=== PATIENT | male | born 1935 | race Caucasian/White ===

== ENCOUNTER → 2017-09-17 14:39 | Outpatient (CLI) | payer MEDICARE, OTHER, SELFPAY ==
[2017-09-17 17:02] LABS: Absolute Lymphocyte Count 1.72 X10^3/ul (0.83-4.51); Absolute Neutrophil Count 6.8 X10^3/uL (2.0-7.7); Basophil# 0.04 X10^3/uL; Basophil% 0.4 % (0-1); Eosinophil# 0.71 X10^3/uL; Eosinophils% 7.1 % (0-5); Hemoglobin 13.8 g/dl (13.0-16.5); Lymphocyte # 1.72 X10^3/ul (4.0); Lymphocyte % 17.2 % (19-41); Mean Corp Hgb Conc 32.1 g/gl (32-36); Mean Corpuscular Hgb 26.2 pg (27.0-32.0); Mean Corpuscular Volume 81.7 fL (80-94); Mean Platelet Vol. 9.9 fl (6.2-12.0); Monocyte# 0.71 X10^3/uL; Monocyte% 7.1 % (0-10); Neutrophil # 6.78 X10^3/uL (2.7-7.7); Neutrophil % 67.8 % (47-70); Platelet Count 361 K/mm3 (150-450); RBC Distribution Width CV 19.6 % (11.6-14.6); RBC Distribution Width SD 58.7 fl (35.1-43.9); Red Blood Count 5.26 M/mm3 (4.6-6.2)
[2017-09-17 17:05] LABS: POSITIVE COUNT NO; POSITIVE DIFFERENTIAL NO; POSITIVE MORPHOLOGY NO
[2017-09-17 17:35] LABS: ALB/GLOB Ratio 0.8 RATIO (0.9-2.4); AST(SGOT) 21 U/L (15-37); Alanine Aminotransfer ALT/SGPT 28 U/L (16-61); Albumin, Serum 3.2 g/dL (3.2-5.0); Alkaline Phosphatase 122 U/L (45-117); Anion Gap 9 (5-15); BUN 22 mg/dL (7-18); BUN/Creat Ratio 17.5 RATIO (10-20); Calcium,Total 8.5 mg/dL (8.5-10.1); Chloride 106 mmol/L (98-107); Creatinine, Serum 1.26 mg/dL (0.70-1.30); EST Glomerular Filtration Rate 58 mL/min (>60); Est Glom Filt Rate - Afr Amer 71 mL/min (>60); Globulin 4.1 g/dL (2.2-4.2); Glucose 98 mg/dL (70-110); Potassium 4.5 mmol/L (3.5-5.1); Protein, Total 7.3 g/dL (6.4-8.2); Sodium Level 141 mmol/L (136-145); Thyroid Stim Hormone (TSH) 2.11 uIU/mL (0.358-3.74)
[2017-09-18 10:05] LABS: Vitamin D,25 Hydroxy 15.4 ng/mL (19.95-100.01)
== END ==
PROVIDERS: Family Provider Family Medicine Geriatric Medicine; PCP Family Medicine Geriatric Medicine; Visit Provider Family Medicine Geriatric Medicine
DX: E55.9 Vitamin D deficiency, unspecified (principal); I10 Essential (primary) hypertension
CPT/HCPCS: 36415; 80053; 82306; 84443; 85025

== ENCOUNTER 2017-09-18 16:41 | Emergency (ER) | payer MEDICARE, OTHER, SELFPAY ==
[2017-09-18 16:42] VITALS: BP 197/121; PULSE 118; RESP 16; TEMP 36; O2SAT 94; BMI 25.2
--- NOTE | 2017-09-18 17:04 | ED.DCSUM_ITS ---
- ER Visit Summary Date of Service: 09/18/17 Chief Complaint: Atraumatic left lower leg swelling and redness. History of Present Illness: The patient is a 82 M history of CAD with stent A. fib and anticoagulated on Coumadin. History of prior epidural hematoma with brain surgery. Patient states last 4 days he has had atraumatic left lower leg swelling without significant pain. No chest pain or shortness of breath. No history of DVT or PE. No recent travel surgery nor any hospitalization. He does have a history of eczema on his skin. States her left foot was red and now his calf is swollen. He denies any fever or chills. Patient states he feels fine. Physical Examination: Well-appearing elderly male. No acute distress. Vital signs are stable and afebrile. His blood pressure is elevated 197/121. His heart rate 118. Pulse ox 94% on room air no signs of hypoxia. He is in no distress. HEENT exam unremarkable. Neck nontender no JVD. Lungs clear to auscultation bilaterally. Heart A. fib RVR. Rate about 110. Abdomen soft nontender. He is moving all 4 extremities. Neurovascular intact. His left calf is significantly more swollen than the right. His left foot is neurovascularly intact. He does have eczema on both lower extremities. There is some redness on the left lower extremity. There is no significant pain. There is no cord. Above the knee is nontender and there is no swelling in the thigh. And there is no inguinal lymphadenopathy. There is no lymphangitic streaking. Left foot is neurovascularly intact. Neurologic exam is awake and alert without focal motor deficits. Test Results: EKG A. fib rate of 112. CBC shows white count 9. Normal H&H. No bands. BMP unremarkable. Normal gap. Creatinine 1.2. Patient is on Coumadin his INR is 2.6. Ultrasound of the left lower extremity shows no DVT I discussed with hazardous waste material technician. Emergency Department Course and Treatment: Patient has atraumatic swelling his left lower extremity which may be secondary to cellulitis of the skin versus a possible DVT. He will have a noninvasive study the left lower extremity and screening labs obtained. Treatment Plan: Patient will be treated for left lower extremity cellulitis. I discussed this with him. He did not want admitted. He knows return if worse. I did speak with his primary care physician Dr. Carlos who knows the patient is seen him recently and will ensure close follow-up. Patient replaced both on Keflex 4 times a day and Bactrim twice daily for the next 10 days each. He was instructed to return if feeling worse. He does not look septic or toxic I am comfortable with him being discharged home. Disposition: Discharge Impression: Acute atraumatic left lower leg swelling secondary to left lower extremity cellulitis. Anticoagulated on Coumadin with an INR of 2.6. Chronic A. fib This note was generated with [employer] dictation software. It may contain incorrect words, spelling, and punctuation that were not noted in review of the chart prior to signing ED Disposition - Plan for ED Patient: Chief Complaint: Cellulitis Referrals: Dariusz Gonzalez Chi, MD [Primary Care Provider] -
--- NOTE | 2017-09-18 17:21 | EKG12_ITS ---
Test Reason : CELLULITIS Blood Pressure : / mmHG Vent. Rate : 112 BPM Atrial Rate : 117 BPM P-R Int : 000 ms QRS Dur : 078 ms QT Int : 362 ms P-R-T Axes : 000 048 014 degrees QTc Int : 494 ms Atrial fibrillation Nonspecific ST abnormality Abnormal ECG Confirmed by MAXWELL LOCO MD ([id number]), industrial editor STEVE REHMAN ([id number] on 09/23/2017 4:10:08 PM Referred By: MAUREEN Confirmed By:MAXWELL LOCO MD
[2017-09-18 17:31] LABS: Absolute Lymphocyte Count 1.64 X10^3/ul (0.83-4.51); Absolute Neutrophil Count 6.2 X10^3/uL (2.0-7.7); Basophil# 0.07 X10^3/uL; Basophil% 0.7 % (0-1); Eosinophil# 0.81 X10^3/uL; Eosinophils% 8.3 % (0-5); Hematocrit 42.5 % (40-54); Hemoglobin 13.7 g/dl (13.0-16.5); Lymphocyte # 1.64 X10^3/ul (4.0); Lymphocyte % 16.9 % (19-41); Mean Corp Hgb Conc 32.2 g/gl (32-36); Mean Corpuscular Hgb 26.1 pg (27.0-32.0); Mean Platelet Vol. 9.7 fl (6.2-12.0); Monocyte# 0.89 X10^3/uL; Monocyte% 9.2 % (0-10); Neutrophil # 6.24 X10^3/uL (2.7-7.7); Neutrophil % 64.3 % (47-70); Platelet Count 343 K/mm3 (150-450); RBC Distribution Width CV 19.5 % (11.6-14.6); RBC Distribution Width SD 58.4 fl (35.1-43.9); Red Blood Count 5.25 M/mm3 (4.6-6.2); White Blood Count 9.7 K/mm3 (4.4-11.0)
--- NOTE | 2017-09-18 17:33 | US_ITS ---
STUDY: VENOUS DOPPLER ULTRASOUND - LEFT LOWER EXTREMITY REASON FOR EXAM: Male, 82 years old. Left lower extremity redness swelling TECHNIQUE: Ultrasound evaluation of the deep vein system to include pradhan-scale imaging and compression was performed. Pradhan-scale imaging and Doppler sonographic evaluation, including duplex spectral analysis and qualitative color flow sonography, was performed. COMPARISON: None. FINDINGS: Common Femoral Vein: Normal compression, spontaneity and augmentation. Normal color Doppler. Common Femoral Vein/Greater Saphenous Junction: Normal compression, spontaneity and augmentation. Normal color Doppler. Femoral Proximal: Normal compression, spontaneity and augmentation. Normal color Doppler. Femoral Middle: Normal compression, spontaneity and augmentation. Normal color Doppler. Femoral Distal: Normal compression, spontaneity and augmentation. Normal color Doppler. Popliteal Vein: Normal compression, spontaneity and augmentation. Normal color Doppler. Posterior Tibial Vein: Normal compression, spontaneity and augmentation. Normal color Doppler. Peroneal Vein: Normal compression, spontaneity and augmentation. Normal color Doppler. US/Venous Duplex Imag/Limited/Uni IMPRESSION: Normal venous Doppler ultrasound of the lower extremity. Electronically Signed: Benji Roth MD at 18:18 EST , Service support ,
--- NOTE | 2017-09-18 17:52 | NURSING ---
NO LW OR POA
[2017-09-18 17:57] LABS: POSITIVE COUNT NO; POSITIVE DIFFERENTIAL NO; POSITIVE MORPHOLOGY NO
[2017-09-18 17:58] LABS: International Normalized Ratio 2.6; Prothrombin Time (Protime)PT. 27.1 SECONDS (11.7-14.9)
[2017-09-18 18:15] LABS: Anion Gap 10 (5-15); BUN 25 mg/dL (7-18); Calcium,Total 8.3 mg/dL (8.5-10.1); Chloride 108 mmol/L (98-107); Creatinine, Serum 1.25 mg/dL (0.70-1.30); EST Glomerular Filtration Rate 59 mL/min (>60); Est Glom Filt Rate - Afr Amer 71 mL/min (>60); Estimated Creatinine Clearance 53.89 ml/min; Glucose 96 mg/dL (70-110); Potassium 4.4 mmol/L (3.5-5.1); Sodium Level 139 mmol/L (136-145)
--- NOTE | 2017-09-18 20:01 | ED.DEP ---
ED Disposition - Plan for ED Patient: Disposition: Home or Assisted Living Chief Complaint: Cellulitis Instructions: Discharge Instructions for Cellulitis Prescriptions: Cephalexin [Keflex] 500 mg PO Q6 10 Days cap Smz/Tmp Ds [Bactrim Ds] 1 tab PO BID #20 tab Referrals: Dariusz Gonzalez Chi, MD [Primary Care Provider] - As soon as possible Additional Instructions: Bactrim 1 pill twice a day for 10 days. Also Keflex 1 pill 4 times a day for 10 days. These are the 2 antibiotics to treat your leg infection. I spoke with Dr. Gonzalez and he will see you in the next several days to ensure your improving. Call his office to make an appointment. Return to ER if feeling worse or the leg looks a lot worse. If you develop fever or chills. You will need your Coumadin level rechecked in about 14 days because the antibiotics you are taking may affect it.
[2017-09-18] MEDS: Cephalexin 250 MG Capsule 500 MG PO (20:07)
[2017-09-18] MEDS: Smz/Tmp Ds Tablet 1 TABLET PO (20:07)
[2017-09-18 20:09] VITALS: BP 138/98; PULSE 97; RESP 17; O2SAT 98
--- NOTE | 2017-09-18 20:09 | ED.RN ---
THIS MAILING JOGGER WRITTEN AND VERBAL D/C INSTRUCTIONS AND HOMEGOING PRESCRIPTIONS TO PT. PT VERBALIZES UNDERSTANDING. PT GIVEN ORAL MEDICATIONS. IV D/C BY VLADIMIR MEDIC STUDENT. MINIMAL BLEEDING NOTED. PT AMBULATORY HOME BY SELF WITH NO ASSISTANCE NEEDED.
== END 2017-09-18 20:11 | disposition home or self-care (01) ==
PROVIDERS: Emergency Provider Emergency Medicine; Family Provider Family Medicine Geriatric Medicine; PCP Family Medicine Geriatric Medicine
DX: M79.89 Other specified soft tissue disorders (principal); L03.116 Cellulitis of left lower limb; I48.2 Chronic atrial fibrillation; L30.9 Dermatitis, unspecified; I25.10 Atherosclerotic heart disease of native coronary artery without angina pectoris; Z87.898 Personal history of other specified conditions; Z95.5 Presence of coronary angioplasty implant and graft; Z79.01 Long term (current) use of anticoagulants; Z79.899 Other long term (current) drug therapy
CPT/HCPCS: 80048; 85025; 85610; 93005; 93971; 99285; A4216

== ENCOUNTER 2017-12-09 10:33 | Outpatient (RCR) | payer MEDICARE, OTHER, SELFPAY ==
[2017-12-09 12:31] LABS: International Normalized Ratio 2.2; Prothrombin Time (Protime)PT. 24.2 SECONDS (11.7-14.9)
== END 2017-12-09 10:45 | disposition home or self-care (01) ==
LOC: MTLAB 10:33
PROVIDERS: Family Provider Family Medicine Geriatric Medicine; PCP Family Medicine Geriatric Medicine; Visit Provider Internal Medicine Cardiovascular Disease
DX: Z95.0 Presence of cardiac pacemaker (principal); I44.7 Left bundle-branch block, unspecified; I45.10 Unspecified right bundle-branch block; I25.10 Atherosclerotic heart disease of native coronary artery without angina pectoris; Z95.5 Presence of coronary angioplasty implant and graft; I48.2 Chronic atrial fibrillation; I10 Essential (primary) hypertension; E78.5 Hyperlipidemia, unspecified; R55 Syncope and collapse
CPT/HCPCS: 36415; 85610

== ENCOUNTER → 2018-01-10 10:50 | Outpatient (CLI) | payer MEDICARE, OTHER, SELFPAY ==
[2018-01-10 12:52] LABS: International Normalized Ratio 2.1; Prothrombin Time (Protime)PT. 23.7 SECONDS (11.7-14.9)
== END ==
PROVIDERS: Family Provider Family Medicine Geriatric Medicine; PCP Family Medicine Geriatric Medicine; Visit Provider Internal Medicine Cardiovascular Disease
DX: I44.7 Left bundle-branch block, unspecified (principal); Z95.0 Presence of cardiac pacemaker; I45.10 Unspecified right bundle-branch block; I25.10 Atherosclerotic heart disease of native coronary artery without angina pectoris; Z95.5 Presence of coronary angioplasty implant and graft; I48.2 Chronic atrial fibrillation; I47.2 Ventricular tachycardia; I10 Essential (primary) hypertension; E78.5 Hyperlipidemia, unspecified; R55 Syncope and collapse
CPT/HCPCS: 36415; 85610

== ENCOUNTER → 2018-03-10 11:09 | Outpatient (CLI) | payer MEDICARE, OTHER, SELFPAY ==
[2018-03-10 12:10] LABS: Absolute Lymphocyte Count 1.45 X10^3/ul (0.83-4.51); Absolute Neutrophil Count 7.5 X10^3/uL (2.0-7.7); Basophil# 0.06 X10^3/uL; Basophil% 0.6 % (0-1); Eosinophil# 0.44 X10^3/uL; Eosinophils% 4.3 % (0-5); Hematocrit 44.1 % (40-54); Hemoglobin 14.9 g/dl (13.0-16.5); Lymphocyte # 1.45 X10^3/ul (4.0); Lymphocyte % 14.1 % (19-41); Mean Corp Hgb Conc 33.8 g/gl (32-36); Mean Corpuscular Hgb 26.8 pg (27.0-32.0); Mean Corpuscular Volume 79.2 fL (80-94); Mean Platelet Vol. 10.5 fl (6.2-12.0); Monocyte# 0.88 X10^3/uL; Monocyte% 8.5 % (0-10); Neutrophil # 7.46 X10^3/uL (2.7-7.7); Neutrophil % 72.2 % (47-70); Platelet Count 260 K/mm3 (150-450); RBC Distribution Width CV 17.7 % (11.6-14.6); RBC Distribution Width SD 50.4 fl (35.1-43.9); Red Blood Count 5.57 M/mm3 (4.6-6.2); White Blood Count 10.3 K/mm3 (4.4-11.0)
[2018-03-10 12:15] LABS: POSITIVE COUNT NO; POSITIVE DIFFERENTIAL NO; POSITIVE MORPHOLOGY NO
[2018-03-10 12:19] LABS: International Normalized Ratio 2.7; Prothrombin Time (Protime)PT. 28.5 SECONDS (11.7-14.9)
[2018-03-10 12:37] LABS: Anion Gap 8 (5-15); BUN 24 mg/dL (7-18); Calcium,Total 8.8 mg/dL (8.5-10.1); Chloride 105 mmol/L (98-107); Creatinine, Serum 1.41 mg/dL (0.70-1.30); EST Glomerular Filtration Rate 51 mL/min (>60); Est Glom Filt Rate - Afr Amer 62 mL/min (>60); Glucose 95 mg/dL (74-106); Potassium 4.5 mmol/L (3.5-5.1); Sodium Level 140 mmol/L (136-145); Thyroid Stim Hormone (TSH) 1.56 uIU/mL (0.358-3.74)
== END ==
PROVIDERS: Internal Medicine Cardiovascular Disease; Family Provider Family Medicine Geriatric Medicine; PCP Family Medicine Geriatric Medicine; Visit Provider Physician Assistant Medical
DX: I25.10 Atherosclerotic heart disease of native coronary artery without angina pectoris (principal); I47.1 Supraventricular tachycardia; R55 Syncope and collapse; I48.2 Chronic atrial fibrillation; I10 Essential (primary) hypertension
CPT/HCPCS: 36415; 80048; 84443; 85025; 85610

== ENCOUNTER → 2018-03-11 16:04 | Outpatient (CLI) | payer MEDICARE, OTHER, SELFPAY ==
[2018-03-11 17:29] LABS: Erythrocyte Sedimentation Rate 7 mm/hr (0-20)
[2018-03-11 17:30] LABS: Absolute Lymphocyte Count 1.77 X10^3/ul (0.83-4.51); Absolute Neutrophil Count 5.8 X10^3/uL (2.0-7.7); Basophil# 0.03 X10^3/uL; Basophil% 0.3 % (0-1); Eosinophil# 0.43 X10^3/uL; Eosinophils% 4.9 % (0-5); Hematocrit 41.8 % (40-54); Hemoglobin 13.6 g/dl (13.0-16.5); Lymphocyte # 1.77 X10^3/ul (4.0); Lymphocyte % 20.3 % (19-41); Mean Corp Hgb Conc 32.5 g/gl (32-36); Mean Corpuscular Hgb 26.3 pg (27.0-32.0); Mean Corpuscular Volume 80.9 fL (80-94); Mean Platelet Vol. 10.4 fl (6.2-12.0); Monocyte# 0.67 X10^3/uL; Monocyte% 7.7 % (0-10); Neutrophil % 66.7 % (47-70); Platelet Count 245 K/mm3 (150-450); RBC Distribution Width CV 17.4 % (11.6-14.6); RBC Distribution Width SD 51.3 fl (35.1-43.9); Red Blood Count 5.17 M/mm3 (4.6-6.2); White Blood Count 8.7 K/mm3 (4.4-11.0)
[2018-03-11 17:35] LABS: POSITIVE COUNT NO; POSITIVE DIFFERENTIAL NO; POSITIVE MORPHOLOGY NO
== END ==
PROVIDERS: Family Provider Family Medicine Geriatric Medicine; PCP Family Medicine Geriatric Medicine; Visit Provider Physician Assistant
DX: M79.672 Pain in left foot (principal)
CPT/HCPCS: 36415; 85025; 85652; 86140

== ENCOUNTER → 2018-03-13 10:15 | Outpatient (CLI) | payer MEDICARE, OTHER, SELFPAY ==
--- NOTE | 2018-03-13 10:16 | CDU_ITS ---
Reason For Study: syncope Rt. Velocities/BP Lt. Velocities/BP Prox CCA 36.9/17.0 cm/sec. Prox CCA 45.6/18.1 cm/sec. Mid CCA 38.1/15.8 cm/sec. Mid CCA 41.6/17.7 cm/sec. Dist CCA 35.8/15.3 cm/sec. Dist CCA 44.0/22.4 cm/sec. Prox ICA 55.4/24.4 cm/sec. Prox ICA 29.9/13.0 cm/sec. Mid ICA 33.8/18.1 cm/sec. Mid ICA 35.7/14.5 cm/sec. Dist ICA 67.1/36.2 cm/sec. Dist ICA 53.2/27.8 cm/sec. Rt. ICA/CCA = 1.8. Lt. ICA/CCA = 1.3. Prox ECA 56.6/17.3 cm/sec. Prox ECA 51.9/12.6 cm/sec. Rt. Vert. 25.7/11.2 cm/sec. Lt. Vert. 25.5/10.6 cm/sec. Right Extracranial There is heterogeneous, smooth atherosclerotic plaque noted in the right common carotid artery. There is heterogeneous, irregular atherosclerotic plaque noted in the right internal carotid artery. The atherosclerotic plaque causes acoustic shadowing. There is heterogeneous, irregular atherosclerotic plaque noted in the right external carotid artery. Antegrade flow is noted in the right vertebral artery. Left Extracranial There is heterogeneous, irregular atherosclerotic plaque noted in the left common carotid artery. There is heterogeneous, irregular atherosclerotic plaque noted in the left internal carotid artery. The left internal carotid artery is very tortuous. There is heterogeneous, irregular atherosclerotic plaque noted in the left external carotid artery. Antegrade flow is noted in the left vertebral artery. Procedure Carotid Duplex [id number]. The exam was diagnostic. Exam performed in department. Interpretation Summary Mild (<50%) stenosis right extracranial internal carotid. Acoustic shadowing is noted in the proximal right internal carotid artery, obscuring visualization of the arterial lumen. As a result, the degree of stenosis may exceed that estimated by velocity criteria alone. In this regard, clinical correlation is advised. Mild (<50%) stenosis left extracranial internal carotid. Flow within the vertebral arteries is antegrade bilaterally. Ordering Physician: Saloni Bowie Performed By: Mor Mauricio RVT
== END ==
PROVIDERS: Family Provider Family Medicine Geriatric Medicine; PCP Family Medicine Geriatric Medicine; Visit Provider Physician Assistant Medical
DX: R09.89 Other specified symptoms and signs involving the circulatory and respiratory systems (principal); I25.10 Atherosclerotic heart disease of native coronary artery without angina pectoris; R55 Syncope and collapse; I48.2 Chronic atrial fibrillation; I10 Essential (primary) hypertension
CPT/HCPCS: 93880

== ENCOUNTER → 2018-03-31 06:57 | Outpatient (CLI) | payer MEDICARE, OTHER, SELFPAY ==
--- NOTE | 2018-03-31 16:01 | STRESSREP ---
Stress Test Report Pharmacologic myocardial perfusion stress test. 82-year-old man with a history of atrial fibrillation. Stress protocol: Resting EKG demonstrates atrial fibrillation with a rate of 93 bpm normal intervals and noted resting blood pressure is 142/88 mmHg. 0.4 mg regadenoson was infused per usual protocol followed by rapid intravenous saline flush injection continuous EKG monitoring was performed. Patient maintained atrial fibrillation throughout the recording. The maximum heart rate attained was 111 bpm which was 79% of maximum predicted heart rate the maximum workload was 1 metabolic equivalent. At rest there were no ST or T-wave changes noted to suggest abnormal flow reserve at peak infusion no ST or T-wave changes were noted to suggest abnormal flow reserve. Resting blood pressure is 142/88 with a final blood pressure 112/76. Myocardial perfusion protocol. 11.9 mCi of technetium 99m sestamibi was injected at rest. 0.4 mg regadenoson was infused per usual protocol peak infusion 33.8 mCi of technetium 99m sestamibi was injected stress images were obtained stress and rest images were reconstructed and compared in the short axis vertical long and horizontal long axis. Gated images were also obtained. Perfusion SPECT analysis: Review of the stress images demonstrate normal uptake of tracer noted in all areas of the myocardium. The resting images similarly demonstrate normal uptake of tracer noted in all areas of the myocardium. No areas of reversibility are noted suggest ischemia. Gated SPECT analysis: The gated ejection fraction demonstrates an ejection fraction of 34%. Conclusion: Mildly dilated cardiomyopathy. Myocardial perfusion stress test with no evidence of ischemia. Persistent atrial fibrillation present.
== END ==
PROVIDERS: Family Provider Family Medicine Geriatric Medicine; PCP Family Medicine Geriatric Medicine; Visit Provider Physician Assistant Medical
DX: I25.10 Atherosclerotic heart disease of native coronary artery without angina pectoris (principal); R55 Syncope and collapse; I48.2 Chronic atrial fibrillation; I10 Essential (primary) hypertension
CPT/HCPCS: 78452; 93017; A9500; A4216; J2785

== ENCOUNTER → 2018-05-27 11:18 | Outpatient (CLI) | payer MEDICARE, OTHER, SELFPAY ==
[2018-05-27 14:04] LABS: International Normalized Ratio 1.8
== END ==
PROVIDERS: Family Provider Family Medicine Geriatric Medicine; PCP Family Medicine Geriatric Medicine; Referring Provider Internal Medicine Cardiovascular Disease; Visit Provider Internal Medicine Cardiovascular Disease
DX: I48.0 Paroxysmal atrial fibrillation (principal); Z98.61 Coronary angioplasty status; Z79.01 Long term (current) use of anticoagulants
CPT/HCPCS: 36415; 85610

== ENCOUNTER → 2018-06-10 14:11 | Outpatient (CLI) | payer MEDICARE, OTHER, SELFPAY ==
[2018-06-10 16:02] LABS: International Normalized Ratio 2.1; Prothrombin Time (Protime)PT. 23.5 SECONDS (11.7-14.9)
== END ==
PROVIDERS: Family Provider Family Medicine Geriatric Medicine; PCP Family Medicine Geriatric Medicine; Referring Provider Internal Medicine Cardiovascular Disease; Visit Provider Internal Medicine Cardiovascular Disease
DX: I48.0 Paroxysmal atrial fibrillation (principal); Z79.01 Long term (current) use of anticoagulants; Z98.61 Coronary angioplasty status
CPT/HCPCS: 36415; 85610

== ENCOUNTER → 2018-06-24 13:55 | Outpatient (CLI) | payer MEDICARE, OTHER, SELFPAY ==
[2018-06-24 15:33] LABS: International Normalized Ratio 2.3; Prothrombin Time (Protime)PT. 25.8 SECONDS (11.7-14.9)
== END ==
PROVIDERS: Family Provider Family Medicine Geriatric Medicine; PCP Family Medicine Geriatric Medicine; Referring Provider Internal Medicine Cardiovascular Disease; Visit Provider Internal Medicine Cardiovascular Disease
DX: I48.0 Paroxysmal atrial fibrillation (principal); Z79.01 Long term (current) use of anticoagulants; Z98.61 Coronary angioplasty status
CPT/HCPCS: 36415; 85610

== ENCOUNTER 2018-07-31 20:02 | Inpatient (IN) | payer MEDICARE, OTHER, SELFPAY ==
[2018-06-05 14:20] VITALS: BMI 25.2
[2018-07-31 20:03] VITALS: PULSE 84; RESP 12; TEMP 36.6; O2SAT 96; BMI 23.7
[2018-07-31 20:24] VITALS: BP 111/76; PULSE 119; RESP 21; O2SAT 97
--- NOTE | 2018-07-31 20:44 | ED.VISSUMM ---
- ER Visit Summary Date of Service: 07/31/18 Chief Complaint: [] Hip pain after trip and fall History of Present Illness: The patient is a 82 M [] of A. fib on Coumadin pacemaker his cardiovascular condition very stable as has his general health he simply states he tripped on a carpet fell landed on his left hip earlier today he has had persistent left hip pain and was brought in for evaluation he was able to walk no head neck chest or abdominal pain no shortness of breath review of systems are negative Physical Examination: [] 107/80 General, no distress resting comfortably HEENT is generally unremarkable The neck is supple no adenopathy Cardiovascular, regular rate and rhythm Lungs, clear bilateral Abdomen, soft nontender Extremities, no clubbing cyanosis or edema, he has a mild amount of left hip pain to range of motion there is no shortening or rotation, the right hip is unremarkable the backs unremarkable neurologically he is awake alert moving all 4 he did not hit his head or injure himself in any other way Neurologic, awake alert answering questions appropriately moving all 4 extremities X-ray of left hip were obtained he only wanted Tylenol for the pain Test Results: [] Emergency Department Course and Treatment: [] X-ray shows nothing acute per radiology, explained the concept of an occult injuries are comfortable with discharge home he will use a walking aid such as cane or walker take Tylenol for pain ice follow-up with his outpatient providers and return for change in symptoms Treatment Plan: [] Disposition: [] Admit pending hospitalist evaluation Impression: [] Left hip injury after fall Addendum the patient was getting ready for discharge he indicated the pain was such that he did not feel that he could walk , nursing try to walk him with a walker but he would not get out of bed to try, he only wanted to be medicated with Tylenol at this time given all the above I have asked the hospitalist to see him for further management and any other clinical studies or evaluations clinically warranted This note was generated with [employer] dictation software. It may contain incorrect words, spelling, and punctuation that were not noted in review of the chart prior to signing ED Disposition - Plan for ED Patient: Chief Complaint: Lower Extremity Injury Instructions: ED Contusion Hip Referrals: Dariusz Gonzalez Chi, MD [Primary Care Provider] -
--- NOTE | 2018-07-31 21:02 | RAD_ITS ---
STUDY: X-RAY - PELVIS AND LEFT HIP REASON FOR EXAM: Male, 82 years old. Left hip pain. Fall. TECHNIQUE: 3 views of the pelvis and hip. COMPARISON: None. FINDINGS: There is a normal bowel gas pattern. Normal visualized soft tissue structures. There is diffuse demineralization of the osseous structures. There is degenerative change of the lower spine. Normal bilateral iliac wings, sacroiliac joints and visualized sacrum. Normal bilateral superior and inferior pubic rami. Normal pubic symphysis. Normal bilateral ischial tuberosities. Normal visualized femoral head. Normal acetabulum. There is mild articular joint space narrowing of the hip. There is spurring of the right femoral head with mild joint space narrowing of the right hip. No fracture seen.. RAD/HIP, UNI W/ Pelvis 2-3 Views IMPRESSION: No fracture seen. Electronically Signed: Claude Hinds MD at 21:42 EST , Service support ,
[2018-07-31] MEDS: Acetaminophen 500 MG Tablet 1000 MG PO (21:29)
--- NOTE | 2018-07-31 21:45 | ED.DEP ---
ED Disposition - Plan for ED Patient: Chief Complaint: Lower Extremity Injury Instructions: ED Contusion Hip Referrals: Dariusz Gonzalez Chi, MD [Primary Care Provider] -
--- NOTE | 2018-07-31 22:23 | PCM.HP.STD ---
Problem List (1) Fall Status: Acute (2) Hip pain Status: Acute Qualifiers: Laterality: left Qualified Code(s): M25.552 - Pain in left hip History of Present Illness Date of Admission: 07/31/18 Chief Complaint: fall with left hip pain The patient is a 82 year old M with a significant history of heart failure with reduced ejection fraction; A. fib ; pacemaker who presented because of a fall at home. Patient reported that his shoes caught up with something and she fell. He reports excruciating sharp pain on his left posterolateral hip. His pain is aggravated with moving and ameliorated with lying still. At the ED, initially he wanted to take only Tylenol but later because of the persistent and severity of his pain he change his mind and he accepted Vicodin. He was unable to go home because of the pain. He has a bruise on his left elbow. Past Medical History Past Medical History (Chronic Problems): Chronic Problems (Last Reviewed 08/01/18 @ 00:55 by Fabian Elizabeth MD) Chronic ectopic atrial tachycardia (Chronic) History of syncope (Chronic) History of 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 (Chronic) 09/13/2008 History of craniotomy (Chronic) 09/13/08 for 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 custodial current use of anticoagulant (Chronic) Premature ventricular contractions (Chronic) Hyperlipidemia (Chronic) Atherosclerotic heart disease of [place] coronary artery without angina pectoris (Chronic) PTCA and FORD 09/21/2004 @ [facility] per Dr. [place]: Proximal LAD Chronic atrial fibrillation (Chronic) Supraventricular tachycardia (Chronic) Carotid bruit (Chronic) Presence of permanent cardiac pacemaker (Chronic) Permanent Pacemaker insertion, single chamber 10/17/15, [employer] Bundle branch block, right (Chronic) Hypertension (Chronic) PAF (paroxysmal atrial fibrillation) (Chronic) Osteoarthritis (Chronic) Hypothyroidism (Chronic) S/P PTCA (percutaneous transluminal coronary angioplasty) (Chronic) 09/21/2004 @ [facility] per Dr. [place]: Proximal LAD Bundle branch block, left (Chronic) Medical History: Medical History (Last Reviewed 08/01/18 @ 00:55 by Fabian Elizabeth MD) Chronic ectopic atrial tachycardia (Chronic) I47.1 History of syncope (Chronic) Z87.898 History of 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 (Chronic) Z86.79 09/13/2008 custodial current use of anticoagulant (Chronic) Z79.01 Premature ventricular contractions (Chronic) I49.3 Hyperlipidemia (Chronic) E78.5 Atherosclerotic heart disease of [place] coronary artery without angina pectoris (Chronic) I25.10 PTCA and FORD 09/21/2004 @ [facility] per Dr. [place]: Proximal LAD Chronic atrial fibrillation (Chronic) I48.2 Supraventricular tachycardia (Chronic) I47.1 Carotid bruit (Chronic) R09.89 Bundle branch block, right (Chronic) I45.10 Hypertension (Chronic) I10 PAF (paroxysmal atrial fibrillation) (Chronic) I48.0 Hypothyroidism (Chronic) E03.9 Bundle branch block, left (Chronic) I44.7 Edema R60.9 Memory loss R41.3 Shortness of breath R06.02 Syncope and collapse R55 Allergies No Known Allergies Allergy (Verified 06/05/18 14:23) Home Medications: Ambulatory Orders Medication Instructions Recorded Warfarin [Coumadin] 3.5 mg PO SUSA 09/18/17 Warfarin [Coumadin] 5 mg PO MOTUWETHFR 09/18/17 atorvastatin 10 mg tablet 10 mg PO QDAY #90 tab 11/07/17 levothyroxine 75 mcg capsule 75 mcg PO QDAY cap 11/07/17 Latanoprost 0.005% [Xalatan 1 drop EACH EYE QHS 07/31/18 Opthalmic] Metoprolol Succinate [Toprol Xl] 50 mg PO QHS 08/01/18 Surgical History: Surgical History (Last Reviewed 08/01/18 @ 00:55 by Fabian Elizabeth MD) History of craniotomy (Chronic) Z98.890 09/13/08 for 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 Presence of permanent cardiac pacemaker (Chronic) Z95.0 Permanent Pacemaker insertion, single chamber 10/17/15, [employer] S/P PTCA (percutaneous transluminal coronary angioplasty) (Chronic) Z98.61 09/21/2004 @ [facility] per Dr. [place]: Proximal LAD History of bilateral cataract extraction Z98.41, Z98.42 History of bilateral knee replacement Z96.653 06/22/2014 Surgical History: - - Hernia repair, candiotomy for 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, skin grafting. Psychiatric History: No pertinent psych hx Lives: With Family Smoking Status: Former smoker - *Family History Maternal Family History: Family History (Last Reviewed 08/01/18 @ 00:55 by Fabian Elizabeth MD) Father CAD (coronary artery disease) Myocardial infarction Sudden cardiac Mother No problems noted. Uncle CAD (coronary artery disease) Sudden cardiac Myocardial infarction Other Heart disease History Items: No pertinent history Paternal Family History: Family History (Last Reviewed 08/01/18 @ 00:55 by Fabian Elizabeth MD) Father CAD (coronary artery disease) Myocardial infarction Sudden cardiac Mother No problems noted. Uncle CAD (coronary artery disease) Sudden cardiac Myocardial infarction Other Heart disease History Items: - - father had mi at age 69 Review of Systems Constitutional: Denies: Chills, Fever, Weight Change HEENT: Denies: Head Aches, Sinus Congestion, Sinus Drainage Cardiovascular: Denies: Chest Pain, Palpitations Respiratory: Denies: Cough, Shortness of breath at rest, Sputum production Gastrointestinal: Denies: Abdominal Pain, Nausea, Vomiting Genitourinary: Denies: Dysuria Musculoskeletal: Reports: - - Left hip pain.. Denies: Joint Pain, Joint Tenderness Skin: Denies: Rash, Wounds Neurological: Denies: Numbness, Tingling, Focal weakness Psychiatric: Denies: Anxiety, Depression, Homicidal Ideations, Suicidal Ideations Hematologic/ Lymphatic: Denies: Easy Bruising, Easy Bleeding VTE Information - Inpt Only VTE Present on Admission: No VTE Mechan Device Prophylaxis: SCD's VTE Pharm Prophylaxis ordered?: No Patient Problems: Active and Suspected Problems (Last Reviewed 08/01/18 @ 00:55 by Fabian Elizabeth MD) Fall (Acute) Hip pain (Acute) - Physical Exam General: Alert, Oriented x3, Cooperative HEENT: Atraumatic, PERRLA, EOMI, Normocephalic Neck: Supple, No JVD, Negative Carotid Bruits Lungs: Clear to auscultation, Normal air movement Cardiovascular: Regular rate, No murmurs Abdomen: Bowel Sounds Present, Soft, Non Tender Extremities: No edema, Capillary Refill Less than 3 Seconds, Tenderness - Left posterior lateral hip tenderness with swelling. Skin: Skin Tear - Left elbow. Musculoskeletal: No Tenderness to Palpation of Joints or Extremities Neurological: Cranial nerves II-XII grossly intact Psych/Mental Status: Normal Affect, Appropriate Vital Signs Temp Pulse Resp BP Pulse Ox 97.8 F 119 H 21 H 111/76 97 07/31/18 20:03 07/31/18 20:24 07/31/18 20:24 07/31/18 20:24 07/31/18 20:24 Oxygen Delivery Method Room Air Weight: 83.915 kg Body Mass Index (BMI) 23.7 Assessment/Plan All Active Problems (Last Reviewed 08/01/18 @ 00:55 by Fabian Elizabeth MD) Fall (Acute) Hip pain (Acute) Syncope (Resolved) Lower GI bleed (Resolved) The patient is a 82 year old M with a significant history of heart failure with reduced ejection fraction; A. fib ; pacemaker who presented because of a fall at home; and with intractable left posterior lateral pain attributed to the fall. Fall with left hip pain. Independent review of Hip/Pelvis radiograph did not show any fracture. Likely patient with muscle strain/sprain. Vicodin as needed and cold compress as needed. Will check vitamin D level. PT and OT to work with patient for strengthening and balance training. Skin tear left at left elbow Sustained after fall. Bactroban to site. Chronic A. fib Pacemaker in place. Rate controlled Continue home metoprolol We will check PT/INR and resume Coumadin dose if needed. Patient report that he takes Coumadin 5 mg every day; and 3.5 mg on Saturday and Saturday. Last time he took his Coumadin was at 07/30 at 2018 at about 11 PM. Hypertension On admission his blood pressure was not within goal. He had a diastolic blood pressure of 93. Continue home metoprolol. Trend blood pressure and adjust blood pressure medication as necessary. Hyperlipidemia lipidemia Lipitor continued Hypothyroidism Synthroid continued DVT prophylaxis We will do SCD for now. Will check INR and resume Coumadin dosing if necessary. Code Visit OBSV E&M: [id number] Initial observation care L3
[2018-07-31] MEDS: HYDROcodone Bitartrate/Apap 5/325 Tablet PO (22:48)
[2018-07-31 23:48] VITALS: BMI 23.9
[2018-07-31 23:49] VITALS: BMI 24.0
[2018-08-01] VITALS (9 sets, daily range): BP systolic 98–129; BP diastolic 68–103; PULSE 60–136; RESP 16; TEMP 36.4–36.9; O2SAT 97–100
--- NOTE | 2018-08-01 00:45 | NURSING ---
Margarita, granddaughter, called in to verify home medications from bottles @ home.
[2018-08-01 01:05] LABS: Hematocrit 40.7 % (40-54); Mean Corp Hgb Conc 34.4 g/gl (32-36); Mean Corpuscular Hgb 29.9 pg (27.0-32.0); Mean Corpuscular Volume 86.8 fL (80-94); Mean Platelet Vol. 9.7 fl (6.2-12.0); Platelet Count 347 K/mm3 (150-450); RBC Distribution Width CV 14.2 % (11.6-14.6); RBC Distribution Width SD 44.7 fl (35.1-43.9); Red Blood Count 4.69 M/mm3 (4.6-6.2)
[2018-08-01 01:09] LABS: Scan Indicated on CBC? Y/N NO
[2018-08-01 01:15] LABS: International Normalized Ratio 2.4; Prothrombin Time (Protime)PT. 26.3 SECONDS (11.7-14.9)
[2018-08-01 01:20] LABS: Anion Gap 8 (5-15); BUN 26 mg/dL (7-18); BUN/Creat Ratio 17.1 RATIO (10-20); Calcium,Total 8.3 mg/dL (8.5-10.1); Chloride 107 mmol/L (98-107); Creatinine, Serum 1.52 mg/dL (0.70-1.30); EST Glomerular Filtration Rate 47 mL/min (>60); Est Glom Filt Rate - Afr Amer 57 mL/min (>60); Estimated Creatinine Clearance 44.31 ml/min; Glucose 117 mg/dL (74-106); Potassium 4.1 mmol/L (3.5-5.1); Sodium Level 139 mmol/L (136-145)
[2018-08-01] MEDS: Latanoprost 0.005% 1 Bottle 1 DRP EACH EYE ×2 (01:40→22:54)
[2018-08-01] MEDS: Mupirocin Ointment 22gm Tube 1 APPLIC TOPICAL ×3 (01:40→22:59)
[2018-08-01] MEDS: Metoprolol(XL)Succ 50 MG Tablet PO ×2 (01:40→22:58)
[2018-08-01] MEDS: Atorvastatin Calcium 10 MG Tablet PO ×2 (01:40→22:58)
[2018-08-01] MEDS: Levothyroxine 75 MCG Tablet PO (05:47)
[2018-08-01] MEDS: HYDROcodone Bitartrate/Apap 5/325 Tablet PO (06:28)
[2018-08-01 09:08] LABS: Vitamin D,25 Hydroxy 28.9 ng/mL (29.95-100.01)
[2018-08-01] MEDS: 0.9% Normal Saline 1,000 ML 100 ML IV ×2 (09:44→22:56)
--- NOTE | 2018-08-01 10:10 | CASEMGMT ---
RN CM Face to Face with patient for initial transition planning/care coordination assessment. RN CM introduced self and role at [facility]. Patient lying in bed, alert and oriented. Patient willing to participate in assessment and is able to answer all questions appropriately. Care providers, pharmacy, and demographics verified. Patient wishes to discharge home, denies need for home health at this time. Patient states if he needs therapy at discharge he would do outpatient therapy. Patient states he has no further needs or concerns at this time. CM to follow for discharge planning needs that may arise. PCP: Carlos Specialists: Soila Lopez Pharmacy: [facility] Insurance: [facility] Prescription Benefit: Yes Living Will/HPOA: Yes, daughter Mar Hester LNOK: Daughter Living Arrangements: Patient lives with daughter and grandson in 2 story with bed and bath being setup on first floor, patient independent at home. Transportation: Self/family DME/HHC: Patient has walker and built in tub bench. Patient denied HHC and would want outpatient therapy. Disposition Plan: Patient to discharge home with family support and follow-up plans in place. Karina DAVIDSON, RN, CM
--- NOTE | 2018-08-01 11:58 | CASEMGMT ---
SW met with pt in room and discussed advance directives. SW reviewed living will and health care POA. Pt states that he has both documents but will not be able to have them brought in at this time as he will need to locate them. SW encouraged pt to bring documents in at a later time and they will be scanned into pt medical record. Pt expresses understanding. TIFFANIE Mane
--- NOTE | 2018-08-01 13:08 | PCM.PN.HOSP ---
Patient Problems: Active and Suspected Problems (Last Reviewed 08/01/18 @ 00:55 by Fabian Elizabeth MD) Fall (Acute) Hip pain (Acute) Subjective: Patient was seen and examined. Complains of dizziness. Patient became very symptomatic and dizzy when he was standing up and ambulating with therapy. Denied any chest pain or shortness of breath. Denied any diarrhea or nausea or vomiting recently. Vitals/I&O's: Vital Signs Temp Pulse Resp BP Pulse Ox 97.9 F 97 16 125/88 H 98 08/01/18 07:31 08/01/18 10:36 08/01/18 07:31 08/01/18 10:36 08/01/18 07:44 Oxygen Delivery Method Room Air Weight: 84.7 kg Body Mass Index (BMI) 23.9 Orthostatic Vital Signs Start: 08/01/18 10:36 Freq: q24h Status: Active Protocol: Activity Type Activity Date Activity User E-Sign Co-Sign Detail Recorded Client Recorded Date Recorded By Document 08/01/18 10:36 SREEDHAR [id number] 08/01/18 10:47 SREEDHAR 08/01/18 10:36 Orthostatic Vitals Standing -Blood Pressure (90/60-120/80) 118/80 -Extremity Use Left Arm -Pulse Rate (60-100) 73 Sitting -Blood Pressure (90/60-120/80) 106/79 -Extremity Use Left Arm -Pulse Rate (60-100) 115 H Lying -Blood Pressure (90/60-120/80) 125/88 H -Extremity Use Left Arm -Pulse Rate (60-100) 97 Intake and Output for Last 24 Hours 07/30/18 07/31/18 08/01/18 23:59 23:59 23:59 Intake Total 300 / 300 Output Total 250 / 250 Balance 50 / 50 General: Alert, Oriented x3, Cooperative, - - pale, not jaundiced, moderately dehydrated. HEENT: Atraumatic, PERRLA, EOMI, Normocephalic Oral: Dry Mucosa Neck: Supple, No JVD, Negative Carotid Bruits Lungs: Normal air movement, Diminished - Diminished in the lower lung zones Cardiovascular: Regular rate, Regular Rhythm, Normal S1, Normal S2, Tachycardic Abdomen: Bowel Sounds Present, Soft, Non Tender, Non-Distended, No Hepato-splenomegaly, Obese Extremities: No edema Skin: - - Impression the left elbow, no surrounding erythema Musculoskeletal: No Tenderness to Palpation of Joints or Extremities Lymphatic: No Cervical, Supraclavicular, or Inguinal Adenopathy Neurological: Cranial nerves II-XII grossly intact, Neuro grossly intact Psych/Mental Status: Normal Affect, Appropriate Laboratory Results 08/01/18 00:53: WBC 14.0 H, RBC 4.69, Hgb 14.0, Hct 40.7, MCV 86.8, MCH 29.9, MCHC 34.4, RDW 14.2, RDW Differential 44.7 H, Plt Count 347, MPV 9.7 08/01/18 00:53: PT 26.3 H, INR 2.4 08/01/18 00:53: Sodium 139, Potassium 4.1, Chloride 107, Carbon Dioxide 24.0, Anion Gap 8, BUN 26 H, Creatinine 1.52 H, Estim Creat Clear Calc 44.31, Est GFR (MDRD) Af Amer 57 L, Est GFR (MDRD) Non-Af 47 L, BUN/Creatinine Ratio 17.1, Glucose 117 H, Calcium 8.3 L 08/01/18 05:46: Vitamin D 25-Hydroxy 28.9 L Current Medications Hydrocodone Bitart/Acetaminophen (Richardson 5mg-325mg) 1 tablet PO Q6H PRN PRN PRN Reason: SEVERE PAIN (6-10/10) Atorvastatin Calcium (Lipitor) 10 mg PO 2200 [facility] Last Admin: 08/01/18 01:40 Dose: 10 mg Sodium Chloride () 1,000 mls @ 100 mls/hr IV .Q10H [facility] Stop: 08/02/18 04:54 Last Admin: 08/01/18 09:44 Dose: 100 mls/hr Latanoprost (Xalatan Opthalmic) 1 drop EACH EYE QHS [facility] Last Admin: 08/01/18 01:40 Dose: 1 applicatio Levothyroxine Sodium (Synthroid) 75 mcg PO 0600 [facility] Last Admin: 08/01/18 05:47 Dose: 75 mcg Magnesium Hydroxide (Milk Of Magnesia) 30 ml PO DAILY PRN PRN PRN Reason: Constipation Metoprolol Succinate (Toprol Xl (Beta Long)) 50 mg PO QHS [facility] Last Admin: 08/01/18 01:40 Dose: 50 mg Mupirocin (Bactroban) 1 applic TOPICAL BID [facility]; Protocol Last Admin: 08/01/18 10:49 Dose: 1 applicatio Warfarin Sodium (Coumadin (Pbkc)) 5 mg PO MoTuWeThFr@2200 [facility] Warfarin Sodium 2.5 mg/ (Warfarin Sodium 1 mg) 3.5 mg PO SuSa@2200 [facility] Zolpidem Tartrate (Ambien (Generic)) 5 mg PO QHS PRN PRN PRN Reason: INSOMNIA Medical Necessity - Tobacco Use Smoking Status: Former smoker Assessment/Plan All Active Problems (Last Reviewed 08/01/18 @ 00:55 by Fabian Elizabeth MD) Fall (Acute) Hip pain (Acute) Syncope (Resolved) Lower GI bleed (Resolved) 82-year-old male with past medical history of chronic atrial fibrillation, hypertension, hyperlipidemia, status post pacemaker comes in after a fall with left hip pain. X-ray of the pelvis and hip was negative for any acute fractures. 1. Orthostatic hypotension, related to dehydration, IV fluid boluses with maintenance IV fluids, recheck orthostatics every shift 2. Acute left hip pain secondary to fall, x-ray did not reveal old fracture, will continue pain control, PT and OT. If pain persists, will get a CT scan of the left hip 3. Chronic atrial fibrillation, rate controlled, on metoprolol and Coumadin, continue, INR therapeutic, INR checks daily 4. Hypertension, now relatively hypotensive, will continue IV fluids, recheck blood work 5. Hyperlipidemia, on Lipitor 6. Hypothyroidism, on Synthroid 7. DVT Ppx- On Coumadin; INR is therapeutic Code Visit Inpatient E&M: 84858 Subs Hosp L2
--- NOTE | 2018-08-01 13:12 | PN_ITS ---
Patient Problems: Active and Suspected Problems (Last Reviewed 08/01/18 @ 00:55 by Fabian Elizabeth MD) Fall (Acute) Hip pain (Acute) Subjective: Patient was seen and examined. Complains of dizziness. Patient became very symptomatic and dizzy when he was standing up and ambulating with therapy. Denied any chest pain or shortness of breath. Denied any diarrhea or nausea or vomiting recently. Vitals/I&O's: Vital Signs Temp Pulse Resp BP Pulse Ox 97.9 F 97 16 125/88 H 98 08/01/18 07:31 08/01/18 10:36 08/01/18 07:31 08/01/18 10:36 08/01/18 07:44 Oxygen Delivery Method Room Air Weight: 84.7 kg Body Mass Index (BMI) 23.9 Orthostatic Vital Signs Start: 08/01/18 10:36 Freq: q24h Status: Active Protocol: Activity Type Activity Date Activity User E-Sign Co-Sign Detail Recorded Client Recorded Date Recorded By Document 08/01/18 10:36 SREEDHAR [id number] 08/01/18 10:47 SREEDHAR 08/01/18 10:36 Orthostatic Vitals Standing -Blood Pressure (90/60-120/80) 118/80 -Extremity Use Left Arm -Pulse Rate (60-100) 73 Sitting -Blood Pressure (90/60-120/80) 106/79 -Extremity Use Left Arm -Pulse Rate (60-100) 115 H Lying -Blood Pressure (90/60-120/80) 125/88 H -Extremity Use Left Arm -Pulse Rate (60-100) 97 Intake and Output for Last 24 Hours 07/30/18 07/31/18 08/01/18 23:59 23:59 23:59 Intake Total 300 / 300 Output Total 250 / 250 Balance 50 / 50 General: Alert, Oriented x3, Cooperative, - - pale, not jaundiced, moderately d ehydrated. HEENT: Atraumatic, PERRLA, EOMI, Normocephalic Oral: Dry Mucosa Neck: Supple, No JVD, Negative Carotid Bruits Lungs: Normal air movement, Diminished - Diminished in the lower lung zones Cardiovascular: Regular rate, Regular Rhythm, Normal S1, Normal S2, Tachycardic Abdomen: Bowel Sounds Present, Soft, Non Tender, Non-Distended, No Hepato- splenomegaly, Obese Extremities: No edema Skin: - - Impression the left elbow, no surrounding erythema Musculoskeletal: No Tenderness to Palpation of Joints or Extremities Lymphatic: No Cervical, Supraclavicular, or Inguinal Adenopathy Neurological: Cranial nerves II-XII grossly intact, Neuro grossly intact Psych/Mental Status: Normal Affect, Appropriate Laboratory Results 08/01/18 00:53: WBC 14.0 H, RBC 4.69, Hgb 14.0, Hct 40.7, MCV 86.8, MCH 29.9, MCHC 34.4, RDW 14.2, RDW Differential 44.7 H, Plt Count 347, MPV 9.7 08/01/18 00:53: PT 26.3 H, INR 2.4 08/01/18 00:53: Sodium 139, Potassium 4.1, Chloride 107, Carbon Dioxide 24.0, Anion Gap 8, BUN 26 H, Creatinine 1.52 H, Estim Creat Clear Calc 44.31, Est GFR (MDRD) Af Amer 57 L, Est GFR (MDRD) Non-Af 47 L, BUN/Creatinine Ratio 17.1, Glucose 117 H, Calcium 8.3 L 08/01/18 05:46: Vitamin D 25-Hydroxy 28.9 L Current Medications Hydrocodone Bitart/Acetaminophen (Gordon 5mg-325mg) 1 tablet PO Q6H PRN PRN PRN Reason: SEVERE PAIN (6-10/10) Atorvastatin Calcium (Lipitor) 10 mg PO 2200 [facility] Last Admin: 08/01/18 01:40 Dose: 10 mg Sodium Chloride () 1,000 mls @ 100 mls/hr IV .Q10H [facility] Stop: 08/02/18 04:54 Last Admin: 08/01/18 09:44 Dose: 100 mls/hr Latanoprost (Xalatan Opthalmic) 1 drop EACH EYE QHS [facility] Last Admin: 08/01/18 01:40 Dose: 1 applicatio Levothyroxine Sodium (Synthroid) 75 mcg PO 0600 [facility] Last Admin: 08/01/18 05:47 Dose: 75 mcg Magnesium Hydroxide (Milk Of Magnesia) 30 ml PO DAILY PRN PRN PRN Reason: Constipation Metoprolol Succinate (Toprol Xl (Beta Long)) 50 mg PO QHS [facility] Last Admin: 08/01/18 01:40 Dose: 50 mg Mupirocin (Bactroban) 1 applic TOPICAL BID [facility]; Protocol Last Admin: 08/01/18 10:49 Dose: 1 applicatio Warfarin Sodium (Coumadin (Pbkc)) 5 mg PO MoTuWeThFr@2200 [facility] Warfarin Sodium 2.5 mg/ (Warfarin Sodium 1 mg) 3.5 mg PO SuSa@2200 [facility] Zolpidem Tartrate (Ambien (Generic)) 5 mg PO QHS PRN PRN PRN Reason: INSOMNIA Medical Necessity - Tobacco Use Smoking Status: Former smoker Assessment/Plan All Active Problems (Last Reviewed 08/01/18 @ 00:55 by Fabian Elizabeth MD) Fall (Acute) Hip pain (Acute) Syncope (Resolved) Lower GI bleed (Resolved) 82-year-old male with past medical history of chronic atrial fibrillation, hypertension, hyperlipidemia, status post pacemaker comes in after a fall with left hip pain. X-ray of the pelvis and hip was negative for any acute fractures. 1. Orthostatic hypotension, related to dehydration, IV fluid boluses with maintenance IV fluids, recheck orthostatics every shift 2. Acute left hip pain secondary to fall, x-ray did not reveal old fracture, will continue pain control, PT and OT. If pain persists, will get a CT scan of the left hip 3. Chronic atrial fibrillation, rate controlled, on metoprolol and Coumadin, continue, INR therapeutic, INR checks daily 4. Hypertension, now relatively hypotensive, will continue IV fluids, recheck blood work 5. Hyperlipidemia, on Lipitor 6. Hypothyroidism, on Synthroid 7. DVT Ppx- On Coumadin; INR is therapeutic Code Visit Inpatient E&M: 83386 Subs Hosp L2
[2018-08-01 13:41] LABS: Absolute Lymphocyte Count 1.72 X10^3/ul (0.83-4.51); Basophil# 0.05 X10^3/uL; Basophil% 0.4 % (0-1); Eosinophil# 0.19 X10^3/uL; Eosinophils% 1.4 % (0-5); Hematocrit 36.7 % (40-54); Hemoglobin 12.5 g/dl (13.0-16.5); Lymphocyte # 1.72 X10^3/ul (4.0); Lymphocyte % 12.4 % (19-41); Mean Corp Hgb Conc 34.1 g/gl (32-36); Mean Corpuscular Hgb 29.6 pg (27.0-32.0); Mean Corpuscular Volume 86.8 fL (80-94); Monocyte# 0.79 X10^3/uL; Monocyte% 5.7 % (0-10); Neutrophil # 11.04 X10^3/uL (2.7-7.7); Neutrophil % 79.7 % (47-70); Platelet Count 271 K/mm3 (150-450); Red Blood Count 4.23 M/mm3 (4.6-6.2); White Blood Count 13.8 K/mm3 (4.4-11.0)
[2018-08-01 13:54] LABS: POSITIVE COUNT NO; POSITIVE DIFFERENTIAL NO; POSITIVE MORPHOLOGY NO
[2018-08-02] VITALS (8 sets, daily range): BP systolic 120–147; BP diastolic 58–93; PULSE 50–110; RESP 15–18; TEMP 36.3–36.8; O2SAT 95–98
[2018-08-02] MEDS: Levothyroxine 75 MCG Tablet PO (06:44)
[2018-08-02 08:07] LABS: Absolute Lymphocyte Count 1.52 X10^3/ul (0.83-4.51); Absolute Neutrophil Count 8.7 X10^3/uL (2.0-7.7); Basophil# 0.06 X10^3/uL; Basophil% 0.5 % (0-1); Eosinophil# 0.33 X10^3/uL; Eosinophils% 2.9 % (0-5); Hematocrit 35.6 % (40-54); Hemoglobin 12.1 g/dl (13.0-16.5); Lymphocyte # 1.52 X10^3/ul (4.0); Lymphocyte % 13.2 % (19-41); Mean Corpuscular Hgb 29.5 pg (27.0-32.0); Mean Corpuscular Volume 86.8 fL (80-94); Mean Platelet Vol. 10.3 fl (6.2-12.0); Monocyte# 0.85 X10^3/uL; Monocyte% 7.4 % (0-10); Neutrophil % 75.5 % (47-70); POSITIVE COUNT NO; POSITIVE DIFFERENTIAL NO; POSITIVE MORPHOLOGY NO; Platelet Count 266 K/mm3 (150-450); RBC Distribution Width SD 43.6 fl (35.1-43.9); White Blood Count 11.5 K/mm3 (4.4-11.0)
[2018-08-02 08:11] LABS: International Normalized Ratio 2.8; Prothrombin Time (Protime)PT. 29.9 SECONDS (11.7-14.9)
[2018-08-02 08:14] LABS: Anion Gap 8 (5-15); BUN 21 mg/dL (7-18); BUN/Creat Ratio 18.9 RATIO (10-20); Calcium,Total 7.8 mg/dL (8.5-10.1); Chloride 110 mmol/L (98-107); Creatinine, Serum 1.11 mg/dL (0.70-1.30); EST Glomerular Filtration Rate 67 mL/min (>60); Est Glom Filt Rate - Afr Amer 82 mL/min (>60); Estimated Creatinine Clearance 60.68 ml/min; Glucose 94 mg/dL (74-106); Potassium 4.1 mmol/L (3.5-5.1); Sodium Level 141 mmol/L (136-145)
[2018-08-02] MEDS: Mupirocin Ointment 22gm Tube 1 APPLIC TOPICAL ×2 (09:29→21:20)
[2018-08-02] MEDS: 0.9% Normal Saline 1,000 ML 100 ML IV ×2 (09:41→19:03)
--- NOTE | 2018-08-02 11:25 | PCM.PN.HOSP ---
Patient Problems: Active and Suspected Problems (Last Reviewed 08/01/18 @ 00:55 by Fabian Elizabeth MD) Fall (Acute) Hip pain (Acute) Subjective: Patient was seen and examined. Complains of dizziness. He was positively orthostatic this morning. Pain in the left hip is much improved. Denies any chest pain or palpitations. Vitals/I&O's: Vital Signs Temp Pulse Resp BP Pulse Ox 98.2 F 110 H 16 122/80 H 98 08/02/18 09:02 08/02/18 09:02 08/02/18 09:02 08/02/18 09:02 08/02/18 09:02 Oxygen Delivery Method Room Air Weight: 84.7 kg Body Mass Index (BMI) 23.9 Orthostatic Vital Signs Start: 08/01/18 10:36 Freq: q24h Status: Active Protocol: Activity Type Activity Date Activity User E-Sign Co-Sign Detail Recorded Client Recorded Date Recorded By Document 08/02/18 04:52 [place] [id number] 08/02/18 04:52 [place] 08/02/18 04:52 Orthostatic Vitals Sitting -Blood Pressure (90/60-120/80) 120/58 L -Extremity Use Right Arm -Pulse Rate (60-100) 50 L Lying -Blood Pressure (90/60-120/80) 136/93 H -Extremity Use Right Arm -Pulse Rate (60-100) 92 Intake and Output for Last 24 Hours 07/31/18 08/01/18 08/02/18 23:59 23:59 23:59 Intake Total 1298 / 1298 1909 / 1909 Output Total 550 / 550 1600 / 1600 Balance 748 / 748 309 / 309 General: Alert, Oriented x3, Cooperative, No apparent distress HEENT: Atraumatic, PERRLA, EOMI, Normocephalic Oral: Moist Mucosa Neck: Supple, No JVD, Negative Carotid Bruits Lungs: Normal air movement, Diminished Cardiovascular: Normal S1, Normal S2, No murmurs, Irregular Rate Abdomen: Bowel Sounds Present, Soft, Non Tender, Non-Distended, No Hepato-splenomegaly Extremities: No edema Skin: No rashes, No breakdown Musculoskeletal: No Tenderness to Palpation of Joints or Extremities Lymphatic: No Cervical, Supraclavicular, or Inguinal Adenopathy Neurological: Cranial nerves II-XII grossly intact, Neuro grossly intact Psych/Mental Status: Normal Affect, Appropriate Laboratory Results 08/01/18 13:30: WBC 13.8 H, RBC 4.23 L, Hgb 12.5 L, Hct 36.7 L, MCV 86.8, MCH 29.6, MCHC 34.1, RDW 14.0, RDW Differential 44.0 H, Plt Count 271, MPV 10.0, Immature Gran % (Auto) 0.400, Neut % (Auto) 79.7 H, Lymph % (Auto) 12.4 L, Cooper % (Auto) 5.7, Eos % (Auto) 1.4, Baso % (Auto) 0.4, Absolute Neuts (auto) 11.0 H, Absolute Lymphs (auto) 1.72, Total Counted Not Reportable 08/02/18 07:25: PT 29.9 H, INR 2.8 08/02/18 07:25: WBC 11.5 H, RBC 4.10 L, Hgb 12.1 L, Hct 35.6 L, MCV 86.8, MCH 29.5, MCHC 34.0, RDW 14.0, RDW Differential 43.6, Plt Count 266, MPV 10.3, Immature Gran % (Auto) 0.500, Neut % (Auto) 75.5 H, Lymph % (Auto) 13.2 L, Cooper % (Auto) 7.4, Eos % (Auto) 2.9, Baso % (Auto) 0.5, Absolute Neuts (auto) 8.7 H, Absolute Lymphs (auto) 1.52, Total Counted Not Reportable 08/02/18 07:25: Sodium 141, Potassium 4.1, Chloride 110 H, Carbon Dioxide 23.0, Anion Gap 8, BUN 21 H, Creatinine 1.11, Estim Creat Clear Calc 60.68, Est GFR (MDRD) Af Amer 82, Est GFR (MDRD) Non-Af 67, BUN/Creatinine Ratio 18.9, Glucose 94, Calcium 7.8 L Current Medications Hydrocodone Bitart/Acetaminophen ([place] 5mg-325mg) 1 tablet PO Q6H PRN PRN PRN Reason: SEVERE PAIN (6-10/10) Atorvastatin Calcium (Lipitor) 10 mg PO 2200 [facility] Last Admin: 08/01/18 22:58 Dose: 10 mg Sodium Chloride () 1,000 mls @ 100 mls/hr IV .Q10H [facility] Stop: 08/03/18 03:49 Last Admin: 08/02/18 09:41 Dose: 100 mls/hr Latanoprost (Xalatan Opthalmic) 1 drop EACH EYE QHS [facility] Last Admin: 08/01/18 22:54 Dose: 1 applicatio Levothyroxine Sodium (Synthroid) 75 mcg PO 0600 [facility] Last Admin: 08/02/18 06:44 Dose: 75 mcg Magnesium Hydroxide (Milk Of Magnesia) 30 ml PO DAILY PRN PRN PRN Reason: Constipation Melatonin (Melatonin) 3 mg PO QHS PRN PRN Reason: INSOMNIA Metoprolol Succinate (Toprol Xl (Beta Long)) 50 mg PO QHS [facility] Last Admin: 08/01/18 22:58 Dose: 50 mg Mupirocin (Bactroban) 1 applic TOPICAL BID [facility]; Protocol Last Admin: 08/02/18 09:29 Dose: 1 applicatio Warfarin Sodium (Coumadin (Pbkc)) 5 mg PO MoTuWeThFr@2200 [facility] Last Admin: 08/01/18 22:57 Dose: 5 mg Warfarin Sodium 2.5 mg/ (Warfarin Sodium 1 mg) 3.5 mg PO SuSa@2200 [facility] Medical Necessity - Tobacco Use Smoking Status: Former smoker Assessment/Plan All Active Problems (Last Reviewed 08/01/18 @ 00:55 by Fabian Elizabeth MD) Fall (Acute) Hip pain (Acute) Syncope (Resolved) Lower GI bleed (Resolved) 82-year-old male with past medical history of chronic atrial fibrillation, hypertension, hyperlipidemia, status post pacemaker comes in after a fall with left hip pain. X-ray of the pelvis and hip was negative for any acute fractures. 1. Orthostatic hypotension, related to dehydration, remains orthostatic, will continue on gentle IV boluses and IV fluids 2. Acute left hip pain secondary to fall, x-ray did not reveal old fracture, pain is fairly controlled, will continue PT and OT 3. Chronic atrial fibrillation, rate controlled, on metoprolol and Coumadin, continue, INR therapeutic, INR checks daily 4. Hypertension, now relatively hypotensive, will continue IV fluids 5. Hyperlipidemia, on Lipitor 6. Hypothyroidism, on Synthroid 7. DVT Ppx- On Coumadin; INR is therapeutic Code Visit Inpatient E&M: 95187 Subs Hosp L2
[2018-08-02] MEDS: Acetaminophen 500 MG Tablet 1000 MG PO ×2 (13:24→21:16)
[2018-08-02] MEDS: Atorvastatin Calcium 10 MG Tablet PO (21:15)
[2018-08-02] MEDS: Metoprolol(XL)Succ 50 MG Tablet PO (21:16)
[2018-08-02] MEDS: Latanoprost 0.005% 1 Bottle 1 DRP EACH EYE (21:17)
[2018-08-03] VITALS (9 sets, daily range): BP systolic 117–153; BP diastolic 83–116; PULSE 94–121; RESP 15–18; TEMP 36.6–36.8; O2SAT 95–98
[2018-08-03] MEDS: Acetaminophen 500 MG Tablet 1000 MG PO ×3 (05:06→22:41)
[2018-08-03 06:39] LABS: International Normalized Ratio 2.8
[2018-08-03] MEDS: Levothyroxine 75 MCG Tablet PO (06:40)
[2018-08-03] MEDS: Mupirocin Ointment 22gm Tube 1 APPLIC TOPICAL ×2 (08:51→22:40)
--- NOTE | 2018-08-03 09:35 | CT_ITS ---
CT left hip without IV contrast INDICATION: Patient fell 3 days ago landing onto the left buttock, persistent pain TECHNIQUE: Axial CT imaging of the left hip performed without IV contrast. Sagittal and coronal reconstruction images are provided. FINDINGS: The left hip is normally aligned without evidence of dislocation. Visualized left hemipelvis is unremarkable without demonstrated fracture. Degenerative changes of the lumbar spine partially visualized. Mild arthrosis of the left sacroiliac joint with anterior spurring. Dalton calcifications of the left proximal iliotibial band likely sequela of old injury. The left femoral head and proximal femur intact without evidence of fracture. There is soft tissue swelling of the lateral hip. A focal, hyperdense fluid collection of the left posterior hip measures 5.2 x 9.2 x 8.5 cm and centered within the left gluteus muscle. The prostate is moderately enlarged but incompletely visualized. Vascular calcifications are present. There are 2 round calcifications projecting along the superior aspect of the prostate or within or adjacent to posterior wall of the urinary bladder (image 9). CT/Extremity Lower without Contra IMPRESSION: 1. NO fracture of the left hip/visualized pelvis. 2. 5.2 x 9.2 x 8.5 cm left gluteal intramuscular hematoma. Lateral hip stranding/contusion. 3. Degenerative changes of the lumbar spine and sacroiliac joint. 4. Sequela of old injury or degeneration of the proximal iliotibial band. 5. Prostatomegaly, incompletely visualized. 6. Rounded calcifications either within the prostate gland or in wall/lumen of the urinary bladder. Ultrasound may assist in differentiation. Electronically Signed: Alejandro Marte MD at 10:57 EST , Service support ,
[2018-08-03] MEDS: oxyCODONE 5 MG Tablet PO (09:58)
--- NOTE | 2018-08-03 10:20 | PCM.PN.HOSP ---
Patient Problems: Active and Suspected Problems (Last Reviewed 08/01/18 @ 00:55 by Fabian Elizabeth MD) Fall (Acute) Hip pain (Acute) Subjective: Patient was seen and examined. He complains of pain in the left hip, worse with ambulation. Discussed with physical and Occupational Therapy, patient was wobbly on the feet, contact-guard assist. Recommend outpatient therapy versus home health Patient is insistent on being discharged. Denies any chest pain or dizziness or shortness of breath. Vitals/I&O's: Vital Signs Temp Pulse Resp BP Pulse Ox 98.0 F 110 H 16 117/83 H 98 08/03/18 08:39 08/03/18 08:39 08/03/18 08:39 08/03/18 08:39 08/03/18 08:39 Oxygen Delivery Method Room Air Weight: 84.7 kg Body Mass Index (BMI) 23.9 Orthostatic Vital Signs Start: 08/01/18 10:36 Freq: q24h Status: Active Protocol: Activity Type Activity Date Activity User E-Sign Co-Sign Detail Recorded Client Recorded Date Recorded By Document 08/03/18 04:43 [facility] [id number] 08/03/18 04:48 LSS 08/03/18 04:43 Orthostatic Vitals Standing -Extremity Use Right Arm Sitting -Blood Pressure (90/60-120/80) 153/116 H -Extremity Use Right Arm -Pulse Rate (60-100) 114 H Lying -Blood Pressure (90/60-120/80) 144/97 H -Extremity Use Right Arm -Pulse Rate (60-100) 121 H Intake and Output for Last 24 Hours 08/01/18 08/02/18 08/03/18 23:59 23:59 23:59 Intake Total 1298 / 1298 4155 / 4155 1502 / 1502 Output Total 550 / 550 2600 / 2600 1550 / 1550 Balance 748 / 748 1555 / 1555 -48 / -48 General: Alert, Oriented x3, Cooperative, No apparent distress HEENT: Atraumatic, PERRLA, EOMI, Normocephalic Oral: Moist Mucosa Neck: Supple, No JVD, Negative Carotid Bruits Lungs: Clear to auscultation, Normal air movement Cardiovascular: Regular rate, Regular Rhythm, Normal S1, Normal S2, No murmurs Abdomen: Bowel Sounds Present, Soft, Non Tender, Non-Distended, No Hepato-splenomegaly Extremities: No edema, - - Bruise over the left hip Skin: No rashes, No breakdown Musculoskeletal: No Tenderness to Palpation of Joints or Extremities Lymphatic: No Cervical, Supraclavicular, or Inguinal Adenopathy Neurological: Cranial nerves II-XII grossly intact, Neuro grossly intact Psych/Mental Status: Normal Affect, Appropriate Laboratory Results 08/03/18 05:15: PT 30.0 H, INR 2.8 Current Medications Acetaminophen (Tylenol) 1,000 mg PO Q8H PRN PRN PRN Reason: PAIN Last Admin: 08/03/18 05:06 Dose: 1,000 mg Atorvastatin Calcium (Lipitor) 10 mg PO 2200 [facility] Last Admin: 08/02/18 21:15 Dose: 10 mg Latanoprost (Xalatan Opthalmic) 1 drop EACH EYE QHS [facility] Last Admin: 08/02/18 21:17 Dose: 1 applicatio Levothyroxine Sodium (Synthroid) 75 mcg PO 0600 [facility] Last Admin: 08/03/18 06:40 Dose: 75 mcg Magnesium Hydroxide (Milk Of Magnesia) 30 ml PO DAILY PRN PRN PRN Reason: Constipation Melatonin (Melatonin) 3 mg PO QHS PRN PRN Reason: INSOMNIA Menthol (Bengay Vanishing Scent) 1 applic TOPICAL TID PRN PRN PRN Reason: PAIN Metoprolol Succinate (Toprol Xl (Beta Long)) 50 mg PO QHS [facility] Last Admin: 08/02/18 21:16 Dose: 50 mg Mupirocin (Bactroban) 1 applic TOPICAL BID [facility]; Protocol Last Admin: 08/03/18 08:51 Dose: 1 applicatio Oxycodone HCl (Oxyir) 5 mg PO Q4H PRN PRN PRN Reason: SEVERE PAIN (6-10/10) Last Admin: 08/03/18 09:58 Dose: 5 mg Warfarin Sodium (Coumadin (Pbkc)) 5 mg PO MoTuWeThFr@2199 [facility] Last Admin: 08/01/18 22:57 Dose: 5 mg Warfarin Sodium 2.5 mg/ (Warfarin Sodium 1 mg) 3.5 mg PO SuSa@2199 [facility] Last Admin: 08/02/18 21:15 Dose: 3.5 mg Medical Necessity - Tobacco Use Smoking Status: Former smoker Assessment/Plan All Active Problems (Last Reviewed 08/01/18 @ 00:55 by Fabian Elizabeth MD) Fall (Acute) Hip pain (Acute) Syncope (Resolved) Lower GI bleed (Resolved) 82-year-old male with past medical history of chronic atrial fibrillation, hypertension, hyperlipidemia, status post pacemaker comes in after a fall with left hip pain. X-ray of the pelvis and hip was negative for any acute fractures. 1. Orthostatic hypotension, related to dehydration, resolved with IV fluids. 2. Acute left hip pain secondary to fall, x-ray did not reveal old fracture, CT scan of the hip was negative for acute fracture, pain is fairly controlled, will continue with PT and OT in the outpatient. 3. Chronic atrial fibrillation, rate controlled, on metoprolol and Coumadin, continue, INR therapeutic 4. Hypertension, controlled. 5. Hyperlipidemia, on Lipitor 6. Hypothyroidism, on Synthroid 7. DVT Ppx- On Coumadin; INR is therapeutic Code Visit Inpatient E&M: 04602 Subs Hosp L2
--- NOTE | 2018-08-03 11:48 | PCM.DC ---
- Discharge Diagnoses Current Active Problems: Current Active and Chronic Problems (Last Reviewed 08/01/18 @ 00:55 by Fabian Elizabeth MD) Fall (Acute) Hip pain (Acute) Reason(s) for Visit for Discharge Instructions: Fall, left hip pain You will use the following diet at home:: Cardiac Your food should be the consistency of: Regular Your liquids should be the consistency of: Regular/Thin Discharge Activity: Return to Normal Activity, May not drive while taking narcotic pain medications., Use Walker Weight Bearing Status: Weight bearing as tolerated Instructions: ED Contusion Hip Additional Instructions: Take Tylenol 1000 mg every 8 hours as needed for pain. Use the walker for ambulating. May take oxycodone as needed for pain. Follow-up with your primary care doctor for further evaluation for the left hip hematoma. Follow-up with your primary care doctor for scheduled INR draws. Have been referred for outpatient physical therapy to work on your gait. Allergies/Adverse Reactions: Allergies No Known Allergies Allergy (Verified 07/31/18 23:57) Medications to take at Discharge Warfarin [Coumadin] 3.5 mg PO SUSA 09/18/17 Warfarin [Coumadin] 5 mg PO [id number] 09/18/17 atorvastatin 10 mg tablet 10 mg PO QDAY #90 tab 11/07/17 levothyroxine 75 mcg capsule 75 mcg PO QDAY cap 11/07/17 Latanoprost 0.005% [Xalatan Opthalmic] 1 drop EACH EYE QHS 07/31/18 Metoprolol Succinate [Toprol Xl] 50 mg PO QHS 08/01/18 Acetaminophen [Tylenol] 1,000 mg PO Q8H PRN PRN #180 tablet 08/03/18 Oxycodone [Oxyir] 5 mg PO Q4H PRN PRN 5 Days #10 tablet 08/03/18 The following prescriptions were given: Oxycodone [Oxyir] 5 mg PO Q4H PRN PRN 5 Days #10 tablet PRN Reason: Severe Pain (6-10/10) Acetaminophen [Tylenol] 1,000 mg PO Q8H PRN PRN #180 tablet PRN Reason: Pain Primary Care Physician: Dariusz Gonzalez Chi, MD [Primary Care Provider] - Please follow up with your Primary Care Physician in: within 2 weeks Test Results: Test results from this visit will be discussed in further detail at your follow-up appointment, if applicable. Proposed Discharge Date: 08/03/18
--- NOTE | 2018-08-03 11:52 | DCINST_ITS ---
- Discharge Diagnoses Current Active Problems: Current Active and Chronic Problems (Last Reviewed 08/01/18 @ 00:55 by Fabian Elizabeth MD) Fall (Acute) Hip pain (Acute) Reason(s) for Visit for Discharge Instructions: Fall, left hip pain You will use the following diet at home:: Cardiac Your food should be the consistency of: Regular Your liquids should be the consistency of: Regular/Thin Discharge Activity: Return to Normal Activity, May not drive while taking narcotic pain medications., Use Walker Weight Bearing Status: Weight bearing as tolerated Instructions: ED Contusion Hip Additional Instructions: Take Tylenol 1000 mg every 8 hours as needed for pain. Use the walker for ambulating. May take oxycodone as needed for pain. Follow- up with your primary care doctor for further evaluation for the left hip hematoma. Follow-up with your primary care doctor for scheduled INR draws. Have been referred for outpatient physical therapy to work on your gait. Allergies/Adverse Reactions: Allergies No Known Allergies Allergy (Verified 07/31/18 23:57) Medications to take at Discharge Warfarin [Coumadin] 3.5 mg PO SUSA 09/18/17 Warfarin [Coumadin] 5 mg PO [id number] 09/18/17 atorvastatin 10 mg tablet 10 mg PO QDAY #90 tab 11/07/17 levothyroxine 75 mcg capsule 75 mcg PO QDAY cap 11/07/17 Latanoprost 0.005% [Xalatan Opthalmic] 1 drop EACH EYE QHS 07/31/18 Metoprolol Succinate [Toprol Xl] 50 mg PO QHS 08/01/18 Acetaminophen [Tylenol] 1,000 mg PO Q8H PRN PRN #180 tablet 08/03/18 Oxycodone [Oxyir] 5 mg PO Q4H PRN PRN 5 Days #10 tablet 08/03/18 The following prescriptions were given: Oxycodone [Oxyir] 5 mg PO Q4H PRN PRN 5 Days #10 tablet PRN Reason: Severe Pain (6-10/10) Acetaminophen [Tylenol] 1,000 mg PO Q8H PRN PRN #180 tablet PRN Reason: Pain Primary Care Physician: Dariusz Gonzalez Chi, MD [Primary Care Provider] - Please follow up with your Primary Care Physician in: within 2 weeks Test Results: Test results from this visit will be discussed in further detail at your follow- up appointment, if applicable. Proposed Discharge Date: 08/03/18
--- NOTE | 2018-08-03 11:53 | DS.PCM_ITS ---
Discharge Date and Diagnosis - Problem List Patient Problems: Active and Suspected Problems (Last Reviewed 08/01/18 @ 00:55 by Fabian Elizabeth MD) Fall (Acute) Hip pain (Acute) Date of Admission: 07/31/18 Date of Discharge: 08/03/18 - Primary Discharge Diagnosis Active and Suspected Problems (Last Reviewed 08/01/18 @ 00:55 by Fabian Elizabeth MD) Fall (Acute) Hip pain (Acute) - Secondary Discharge Diagnosis Chronic Problems (Last Reviewed 08/01/18 @ 00:55 by Fabian Elizabeth MD) Chronic ectopic atrial tachycardia (Chronic) History of syncope (Chronic) History of 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 (Chronic) 09/13/2008 History of craniotomy (Chronic) 09/13/08 for 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 [place]: Proximal LAD Chronic atrial fibrillation (Chronic) Supraventricular tachycardia (Chronic) Carotid bruit (Chronic) Presence of permanent cardiac pacemaker (Chronic) Permanent Pacemaker insertion, single chamber 10/17/15, [place] [employer] Bundle branch block, right (Chronic) Hypertension (Chronic) PAF (paroxysmal atrial fibrillation) (Chronic) Osteoarthritis (Chronic) Hypothyroidism (Chronic) S/P PTCA (percutaneous transluminal coronary angioplasty) (Chronic) 09/21/2004 @ [facility] per Dr. Birmingham: Proximal LAD Bundle branch block, left (Chronic) Hospital Course and Treatment Imaging Results: 08/03/18 09:35 CT Hip [Extremity Lower without Contra] [CT] Routine Operations: None Summary of Care Provided: The patient is a 82 year old M [] Patient Problems: Active and Suspected Problems (Last Reviewed 08/01/18 @ 00:55 by Fabian Elizabeth MD) Fall (Acute) Hip pain (Acute) - Physical Exam Vital Signs Temp Pulse Resp BP Pulse Ox 98.0 F 110 H 16 117/83 H 98 08/03/18 08:39 08/03/18 08:39 08/03/18 08:39 08/03/18 08:39 08/03/18 08:39 Oxygen Delivery Method Room Air Weight: 84.7 kg Body Mass Index (BMI) 23.9 Orthostatic Vital Signs Start: 08/01/18 10:36 Freq: q24h Status: Active Protocol: Activity Type Activity Date Activity User E-Sign Co-Sign Detail Recorded Client Recorded Date Recorded By Document 08/03/18 04:43 [facility] [id number] 08/03/18 04:48 [facility] 08/03/18 04:43 Orthostatic Vitals Standing -Extremity Use Right Arm Sitting -Blood Pressure (90/60-120/80) 153/116 H -Extremity Use Right Arm -Pulse Rate (60-100) 114 H Lying -Blood Pressure (90/60-120/80) 144/97 H -Extremity Use Right Arm -Pulse Rate (60-100) 121 H Intake and Output for Last 24 Hours 08/01/18 08/02/18 08/03/18 23:59 23:59 23:59 Intake Total 1298 / 1298 4155 / 4155 1502 / 1502 Output Total 550 / 550 2600 / 2600 1550 / 1550 Balance 748 / 748 1555 / 1555 -48 / -48 Laboratory Tests Past 24 Hrs 08/03/18 05:15 PT 30.0 H INR 2.8 Discharge Activity: Return to Normal Activity, May not drive while taking narcotic pain medications., Use Walker Weight Bearing Status: Weight bearing as tolerated Home Medications: Medications to take at Discharge Warfarin [Coumadin] 3.5 mg PO SUSA 09/18/17 Warfarin [Coumadin] 5 mg PO MOTUWETHFR 09/18/17 atorvastatin 10 mg tablet 10 mg PO QDAY #90 tab 11/07/17 levothyroxine 75 mcg capsule 75 mcg PO QDAY cap 11/07/17 Latanoprost 0.005% [Xalatan Opthalmic] 1 drop EACH EYE QHS 07/31/18 Metoprolol Succinate [Toprol Xl] 50 mg PO QHS 08/01/18 Acetaminophen [Tylenol] 1,000 mg PO Q8H PRN PRN #180 tablet 08/03/18 Oxycodone [Oxyir] 5 mg PO Q4H PRN PRN 5 Days #10 tablet 08/03/18 Following Prescrptions Were Given to Patient: Oxycodone [Oxyir] 5 mg PO Q4H PRN PRN 5 Days #10 tablet PRN Reason: Severe Pain (6-10/10) Acetaminophen [Tylenol] 1,000 mg PO Q8H PRN PRN #180 tablet PRN Reason: Pain Primary Care Physician: Dariusz Gonzalez Chi, MD [Primary Care Provider] - Please follow up with your Primary Care Physician in: within 2 weeks Patient Instructions: ED Contusion Hip Medical Necessity - Tobacco Use Smoking Status: Former smoker Meaningful Use Info Meaningful Use Diagnoses (Choose all that apply): None applicable Code Visit Inpatient E&M: 75689 Disch Hosp
--- NOTE | 2018-08-03 11:56 | PCM.TXEXTCAR ---
- Diet 08/01/18 00:50 Diet: Cardiac/Low Cholesterol Food consistency:: Regular Liquid Consistency:: Regular/Thin Is pt able to select menu?: Yes - Routine Orders/Code Status Routine Lab Work: CBC - within 3 days, BMP - within 3 days, INR - daily - Wound(s) Left Elbow Wound Type: Hematoma - left hip - Therapies Weight Bearing: Weight bearing as tolerated Extremity Affected:: Bilateral Lower Physical Therapy: Eval and Treat Occupational Therapy: Eval and Treat - Allergies/Procedures Done in Hospital Allergies/Adverse Reactions: Allergies No Known Allergies Allergy (Verified 07/31/18 23:57) Procedures: None - Type of Care/Length of Stay Estimated LOS: Convalescent Care Less Than 30 days Type of Care Needed: Skilled Rehab Potential: Good Prognosis: Good - Additional Orders/Day of Discharge Day of Discharge: 08/04/18 - Follow Up Care Primary Care Physician: Dariusz Gonzalez Chi, MD [Primary Care Provider] - Please follow up with your Primary Care Physician in: within 2 weeks
[2018-08-03] MEDS: Atorvastatin Calcium 10 MG Tablet PO (22:40)
[2018-08-03] MEDS: Metoprolol(XL)Succ 50 MG Tablet PO (22:40)
[2018-08-03] MEDS: Latanoprost 0.005% 1 Bottle 1 DRP EACH EYE (22:41)
[2018-08-04 02:46] VITALS: BP 143/99; PULSE 81; RESP 18; TEMP 36.3; O2SAT 97
[2018-08-04 06:05] LABS: International Normalized Ratio 3.1; Prothrombin Time (Protime)PT. 31.9 SECONDS (11.7-14.9)
[2018-08-04] MEDS: Magnesium Hydroxide 30 ML UDC PO (06:05)
[2018-08-04] MEDS: Levothyroxine 75 MCG Tablet PO (06:05)
[2018-08-04 06:14] VITALS: BP 142/99; BP 148/106; BP 88/65; PULSE 66; PULSE 81; PULSE 86
[2018-08-04] MEDS: Acetaminophen 500 MG Tablet 1000 MG PO (06:54)
[2018-08-04] MEDS: oxyCODONE 5 MG Tablet PO (08:54)
[2018-08-04] MEDS: Mupirocin Ointment 22gm Tube 1 APPLIC TOPICAL (09:30)
[2018-08-04 09:35] VITALS: BP 121/77; PULSE 100; RESP 18; TEMP 36.4; O2SAT 98
--- NOTE | 2018-08-04 11:13 | CASEMGMT ---
Social Work Note Charge Nurse Nona updated this worker that pt is now interested in SNF at discharge. SW met with pt. SW introduced self and role at [facility]. Pt is alert and orientated x3. Pt confirms that he would like SNF at discharge and would like TCU. SW explained that this worker will check on bed availability. Pt states understanding. SW placed a call to Susi in TCU. Per Susi she has a bed and she is able to accept pt today. SW updated physician of this. SW updated pt of this. Plan: TCU today Karina Pizarro [employer]ING [employer], FOOD SAFETY FIELD SPECIALIST
--- NOTE | 2018-08-04 11:25 | PCM.TXEXTCAR ---
- Diet 08/01/18 00:50 Diet: Cardiac/Low Cholesterol Food consistency:: Regular Liquid Consistency:: Regular/Thin Is pt able to select menu?: Yes - Routine Orders/Code Status Suppository Type: Dulcolax 10mg Suppository Frequency: Daily PRN Routine Lab Work: CBC - within 3 days, BMP - within 3 days, INR - daily - Wound(s) Left Elbow Wound Type: Abrasion - Therapies Weight Bearing: Weight bearing as tolerated Extremity Affected:: Bilateral Lower Physical Therapy: Eval and Treat Occupational Therapy: Eval and Treat - Allergies/Procedures Done in Hospital Allergies/Adverse Reactions: Allergies No Known Allergies Allergy (Verified 07/31/18 23:57) Procedures: None - Type of Care/Length of Stay Estimated LOS: Convalescent Care Less Than 30 days Type of Care Needed: Skilled Rehab Potential: Good Prognosis: Good - Additional Orders/Day of Discharge Additional Orders: Hold Coumadin and resume when INR is 2.5 and titrate the dose as per INR Day of Discharge: 08/04/18 - Follow Up Care Primary Care Physician: Dariusz Gonzalez Chi, MD [Primary Care Provider] - Please follow up with your Primary Care Physician in: within 2 weeks
--- NOTE | 2018-08-04 11:29 | PCM.DC.SUM ---
Discharge Date and Diagnosis - Problem List Patient Problems: Active and Suspected Problems (Last Reviewed 08/01/18 @ 00:55 by Fabian Elizabeth MD) Fall (Acute) Hip pain (Acute) Date of Admission: 07/31/18 Date of Discharge: 08/04/18 - Primary Discharge Diagnosis Active and Suspected Problems (Last Reviewed 08/01/18 @ 00:55 by Fabian Elizabeth MD) Fall (Acute) Hip pain (Acute) Acute left hip pain. Dislocation or fracture ruled out - Secondary Discharge Diagnosis Chronic Problems (Last Reviewed 08/01/18 @ 00:55 by Fabian Elizabeth MD) Chronic ectopic atrial tachycardia (Chronic) History of syncope (Chronic) History of 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 (Chronic) 09/13/2008 History of craniotomy (Chronic) 09/13/08 for 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 assisted current use of anticoagulant (Chronic) Premature ventricular contractions (Chronic) Hyperlipidemia (Chronic) Atherosclerotic heart disease of [place] coronary artery without angina pectoris (Chronic) PTCA and FORD 09/21/2004 @ [facility] per Dr. Birmingham: Proximal LAD Chronic atrial fibrillation (Chronic) Supraventricular tachycardia (Chronic) Carotid bruit (Chronic) Presence of permanent cardiac pacemaker (Chronic) Permanent Pacemaker insertion, single chamber 10/17/15, [place] [employer] Bundle branch block, right (Chronic) Hypertension (Chronic) PAF (paroxysmal atrial fibrillation) (Chronic) Osteoarthritis (Chronic) Hypothyroidism (Chronic) S/P PTCA (percutaneous transluminal coronary angioplasty) (Chronic) 09/21/2004 @ [facility] per Dr. Birmingham: Proximal LAD Bundle branch block, left (Chronic) Hospital Course and Treatment Operations: None Summary of Care Provided: The patient is a 82-year-old male with past medical history of chronic atrial fibrillation, hypertension, hyperlipidemia, status post pacemaker comes in after a fall with left hip pain. X-ray of the pelvis and hip was negative for any acute fractures. The patient was admitted to the regular medical floor. Pain was controlled. 1. Orthostatic hypotension, related to dehydration, resolved with IV fluids. 2. Acute left hip pain secondary to fall, x-ray did not reveal old fracture, CT scan of the hip was negative for acute fracture, pain is fairly controlled. The patient was assessed by PT and OT and recommended SNF placement. 3. Chronic atrial fibrillation, rate controlled, on metoprolol and Coumadin at home. INR is 3.1. Coumadin held. Follow-up INR tomorrow and titrate the dose of Coumadin accordingly 4. Hypertension, controlled. 5. Hyperlipidemia, on Lipitor 6. Hypothyroidism, on Synthroid 7. DVT Ppx-INR supratherapeutic, 3.1 Discharge medication reconciliation done. Discharge follow-up instructions completed. Patient is being discharged to TCU for further rehab and still having pain and not able to transfer from bed to chair. Total time spent, exact 35 minutes on discharge meds reconciliation, examination, review of imaging and blood test and discussion with the patient on follow-up instructions. Patient Problems: Active and Suspected Problems (Last Reviewed 08/01/18 @ 00:55 by Fabian Elizabeth MD) Fall (Acute) Hip pain (Acute) Subjective: Patient seen and examined today. Patient is comfortable while laying on bed but gets pain on movement of left lower extremity or changing the posture. Patient has constipation. Did not move bowel since Saturday. Laxative is started - Physical Exam General: Alert, Oriented x3, Cooperative HEENT: Atraumatic, PERRLA, EOMI, Normocephalic Neck: Supple, No JVD, Negative Carotid Bruits Lungs: Clear to auscultation, Normal air movement, No rhonchi, No wheeze, No rales Cardiovascular: Regular rate, Regular Rhythm, Normal S1, Normal S2, No murmurs Abdomen: Bowel Sounds Present, Soft, Non Tender, Non-Distended Extremities: No edema, Capillary Refill Less than 3 Seconds Skin: No rashes, No breakdown Musculoskeletal: Arthritic Changes, Tenderness - Tenderness present over left hip joint Neurological: Cranial nerves II-XII grossly intact, Deep Tendon Reflexes 2+/4 and Symmetrical, Neuro grossly intact Psych/Mental Status: Normal Affect, Appropriate Vital Signs Temp Pulse Resp BP Pulse Ox 97.6 F L 100 18 121/77 H 98 08/04/18 09:35 08/04/18 09:35 08/04/18 09:35 08/04/18 09:35 08/04/18 09:35 Oxygen Delivery Method Room Air Weight: 186 lb 11.704 oz Body Mass Index (BMI) 23.9 Orthostatic Vital Signs Start: 08/01/18 10:36 Freq: q24h Status: Active Protocol: Activity Type Activity Date Activity User E-Sign Co-Sign Detail Recorded Client Recorded Date Recorded By Document 08/04/18 06:14 [email or web address] [id number] 08/04/18 06:25 KJU 08/04/18 06:14 Orthostatic Vitals Standing -Blood Pressure (90/60-120/80) 88/65 L -Extremity Use Right Arm -Pulse Rate (60-100) 66 Sitting -Blood Pressure (90/60-120/80) 142/99 H -Extremity Use Right Arm -Pulse Rate (60-100) 81 Lying -Blood Pressure (90/60-120/80) 148/106 H -Extremity Use Right Arm -Pulse Rate (60-100) 86 Intake and Output for Last 24 Hours 08/02/18 08/03/18 08/04/18 23:59 23:59 23:59 Intake Total 4155 / 4155 2222 / 2222 440 / 440 Output Total 2600 / 2600 1950 / 1950 450 / 450 Balance 1555 / 1555 272 / 272 -10 / -10 Laboratory Tests Past 24 Hrs 08/04/18 05:24 PT 31.9 H INR 3.1 Discharge Activity: Return to Normal Activity, May not drive while taking narcotic pain medications., Use Walker Weight Bearing Status: Weight bearing as tolerated Home Medications: Medications to take at Discharge atorvastatin 10 mg tablet 10 mg PO QDAY #90 tab 11/07/17 levothyroxine 75 mcg capsule 75 mcg PO QDAY cap 11/07/17 Latanoprost 0.005% [Xalatan Opthalmic] 1 drop EACH EYE QHS 07/31/18 Metoprolol Succinate [Toprol Xl] 50 mg PO QHS 08/01/18 Acetaminophen [Tylenol] 1,000 mg PO Q8H PRN PRN #180 tablet 08/03/18 Oxycodone [Oxyir] 5 mg PO Q4H PRN PRN 5 Days #10 tablet 08/03/18 Bisacodyl [Dulcolax] 10 mg RECTAL DAILY PRN PRN suppos. 08/04/18 Docusate Sodium [Colace] 200 mg PO BID capsule 08/04/18 Mupirocin [Bactroban] 1 applic TOPICAL BID tube 08/04/18 Polyethylene Glycol 3350 [Miralax] 17 gm PO DAILY packet 08/04/18 Warfarin [Coumadin] 3 mg PO SUSA #1 08/04/18 Warfarin [Coumadin] 5 mg PO MOTUWETHFR #0 08/04/18 Following Prescrptions Were Given to Patient: Oxycodone [Oxyir] 5 mg PO Q4H PRN PRN 5 Days #10 tablet PRN Reason: Severe Pain (6-05/28) Acetaminophen [Tylenol] 1,000 mg PO Q8H PRN PRN #180 tablet PRN Reason: Pain Primary Care Physician: Dariusz Gonzalez Chi, MD [Primary Care Provider] - Please follow up with your Primary Care Physician in: within 2 weeks Patient Instructions: ED Contusion Hip Medical Necessity - Tobacco Use Smoking Status: Former smoker Meaningful Use Info Meaningful Use Diagnoses (Choose all that apply): None applicable Code Visit Inpatient E&M: 73664 Disch Hosp
[2018-08-04] MEDS: Docusate Sodium 100 MG Capsule 200 MG PO (12:36)
--- NOTE | 2018-08-04 13:00 | NURSING ---
report called to TCU
--- OUTSIDE RECORDS SUMMARY | 2018-09-16 15:31 | XMS RPT_ITS ---
:1935 Author Organization [place] Support Name Relationship Address Phone MARK GOOD Unavailable [address] + [place] [address] [employer], NGOZI Unavailable [address] + [place] [address] S Unavailable Unavailable Unavailable MARK GOOD Unavailable [address] + [place] [address] [employer], NGOZI Unavailable [address] + [facility] [place] [address] S Unavailable Unavailable Unavailable MARK GOOD Unavailable [address] + [place] [address] [employer] -[facility], NGOZI Unavailable [address] + [place] [address] S Unavailable Unavailable Unavailable MARK GOOD Unavailable [address] + [place] [address] [employer]YLS[employer] -[facility], GNOZI Unavailable [address] + [place] [address] S Unavailable Unavailable Unavailable MARK GOOD Unavailable [address] + [place] [address] [employer] [facility], NGOZI Unavailable [address] + [place] [address] S Unavailable Unavailable Unavailable MARK GOOD Unavailable [address] + [place] [address] [employer] [facility], NGOZI Unavailable [address] + [place] [address] S Unavailable Unavailable Unavailable AYLSWORTH, MARK Unavailable [address] + [place] [address] [employer] [facility], NGOZI Unavailable [address] + [place] [address] S Unavailable Unavailable Unavailable AYLSDARA MARK Unavailable [address] + [place] [address] [employer] [facility], NGOZI Unavailable [address] + [place] [address] S Unavailable Unavailable Unavailable AYLSWORTH, MARK Unavailable [address] + [place] [address] [employer], NGOZI Unavailable [address] + [place] [address] S Unavailable Unavailable Unavailable AYLSDARA, MARK Unavailable [address] + [place] [address] [employer] [facility], NGOZI Unavailable [address] + [place] [address] S Unavailable Unavailable Unavailable AYMIKE MARK Unavailable [address] + [place] [address] [employer], NGOZI Unavailable [address] + [place] [address] S Unavailable Unavailable Unavailable FLORENTINO MARK Unavailable Unavailable + [place] [address] R Unavailable Unavailable Unavailable AYMIKE MARK Unavailable Unavailable + [place] [address] R Unavailable Unavailable Unavailable AYLSWORTH MARK Unavailable Unavailable + [place] [address] R Unavailable Unavailable Unavailable AYLSWORTH MARK Unavailable Unavailable + [place] [address] R Unavailable Unavailable Unavailable AYLSWORTH MARK Unavailable Unavailable + [place] [address] R Unavailable Unavailable Unavailable AYLSWORTH MARK Unavailable Unavailable + [place] [address] R Unavailable Unavailable Unavailable AYLSDARA MARK Unavailable Unavailable + [place] [address] R Unavailable Unavailable Unavailable MARK GOOD Unavailable Unavailable + R Unavailable Unavailable Unavailable MARK GOOD Unavailable Unavailable + R Unavailable Unavailable Unavailable MARK GOOD Unavailable Unavailable + R Unavailable Unavailable Unavailable MARK GOOD Unavailable Unavailable + [place] [address] R Unavailable Unavailable Unavailable R Unavailable Unavailable Unavailable R Unavailable Unavailable Unavailable R Unavailable Unavailable Unavailable R Unavailable Unavailable Unavailable BLUE GOODE Unavailable [address] + [place] [address] R Unavailable Unavailable Unavailable R Unavailable Unavailable Unavailable R Unavailable Unavailable Unavailable BLUE GOODE Unavailable [address] + [place] [address] R Unavailable Unavailable Unavailable R Unavailable Unavailable Unavailable DULCENGOZI DIAMOND Unavailable [address] [phone] [place] [address] LUCAS GOODBIE Unavailable [address] + [place] [address] R Unavailable Unavailable Unavailable NGOZI GOOD Unavailable [address] [phone] [place] [address] ANITALUCAS MCKEONBIE Unavailable [address] + [place] [address] R Unavailable Unavailable Unavailable Care Team Providers Name Role Phone Youku, Dariusz Chi Primary Care Unavailable Fabian Elizabeth Admitting Unavailable Sergio, Patrice Attending Unavailable Fabian Elizabeth Admitting Unavailable Fabian Elizabeth Attending Unavailable Carlos, Dariusz Chi Primary Care Unavailable Fabian Elizabeth Consulting Unavailable Fabian Elizabeth Admitting Unavailable Paintsil, Allison Attending Unavailable Carlos, Dariusz Chi Primary Care Unavailable Paintsil, Allison Consulting Unavailable Fabian Elizabeth Admitting Unavailable Paintsil, Allison Attending Unavailable Carlos, Dariusz Chi Primary Care Unavailable Paintsil, Allison Consulting Unavailable Fabian Elizabeth Admitting Unavailable Paintsil, Allison Attending Unavailable Carlos, Dariusz Chi Primary Care Unavailable Paintsil, Allison Consulting Unavailable Fabian Elizabeth Admitting Unavailable Sergio, Patrice Attending Unavailable Carlos, Dariusz Chi Primary Care Unavailable Sergio, Patrice Consulting Unavailable John, Aristeo Attending Unavailable Carlos, Dariusz Chi Primary Care Unavailable Carlos, Dariusz Chi Attending Unavailable Carlos, Dariusz Chi Primary Care Unavailable Carlos, Dariusz Chi Primary Care Unavailable Buddy Amaya Attending Unavailable Carlos, Dariusz Chi Admitting Unavailable Carlos, Dariusz Chi Attending Unavailable Carlos, Dariusz Chi Referring Unavailable Carlos, Dariusz Chi Primary Care Unavailable Buddy Denson Consulting Unavailable John, Aristeo Attending Unavailable John, Aristeo Referring Unavailable Carlos, Dariusz Chi Primary Care Unavailable Carlos, Dariusz Chi Attending Unavailable Carlos, Dariusz Chi Referring Unavailable Carlos, Dariusz Chi Primary Care Unavailable Emil[place] Joseph Attending Unavailable Carlos, Dariusz Chi Referring Unavailable John, Aristeo Attending Unavailable John, Polk Referring Unavailable Carlos, Dariusz Chi Primary Care Unavailable John, Polk Attending Unavailable Carlos, Dariusz Chi Referring Unavailable Carlos, Dariusz Chi Primary Care Unavailable Emiliana Joseph Attending Unavailable Carlos, Dariusz Chi Referring Unavailable John, Polk Attending Unavailable Carlos, Dariusz Chi Primary Care Unavailable John, Aristeo Attending Unavailable John, Polk Referring Unavailable Carlos, Dariusz Chi Primary Care Unavailable Emiliana Joseph Attending Unavailable Carlos, Dariusz Chi Referring Unavailable Saloni Bowie Attending Unavailable Carlos, Dariusz Chi Referring Unavailable Carlos, Dariusz Chi Primary Care Unavailable Saloni Bowie Attending Unavailable BoiweSaloni Referring Unavailable Carlos, Dariusz Chi Primary Care Unavailable Saloni Bowie Attending Unavailable Saloni Bowie Referring Unavailable Carlos, Dariusz Chi Primary Care Unavailable Jacob Cruz Attending Unavailable Jacob Cruz Referring Unavailable Carlos, Dariusz Chi Primary Care Unavailable Saloni Bowie Attending Unavailable Bowie, Saloni M Referring Unavailable Carlos, Dariusz Chi Primary Care Unavailable Saloni Bowie Attending Unavailable BowieSaloni Referring Unavailable Carlos, Dariusz Chi Primary Care Unavailable John, Aristeo Attending Unavailable Saloni Bowie Referring Unavailable John, Aristeo Attending Unavailable John, Aristeo Referring Unavailable Carlos, Dariusz Chi Primary Care Unavailable Em[place] Joseph Attending Unavailable Carlos, Dariusz Chi Referring Unavailable John, Aristeo Attending Unavailable Carlos, Dariusz Chi Referring Unavailable John, Polk Attending Unavailable John, Polk Referring Unavailable Carlos, Dariusz Chi Primary Care Unavailable John, Aristeo Attending Unavailable John, Aristeo Referring Unavailable Carlos, Dariusz Chi Primary Care Unavailable PROBLEMS PROBLEMS DATE TYPE CONDITION / CODE ATTENDING STATUS SOURCE 09/09/2018 Unknown M62.81 - Muscle Carlos, Dariusz Chi Active [place] weakness (generalized) Community / M62.81(ICD-10) Hospital Repository 09/09/2018 Unknown R26.2 - Difficulty in Carlos, Dariusz Chi Active [place] walking, not elsewhere Community classified / Hospital R26.2(ICD-10) Repository 09/04/2018 Unknown I48.0 - Paroxysmal John, Polk Active [place] atrial fibrillation / Community I48.0(ICD-10) Hospital Repository 08/15/2018 Unknown R53.81 - Other malaise Carlos, Dariusz Chi Active [place] / R53.81(ICD-10) Community Hospital Repository 08/04/2018 Unknown M25.559 - Pain in [facility], Patrice Active [place] unspecified hip / Community M25.559(ICD-10) Hospital Repository 06/05/2018 Unknown Z95.0 - Presence of John, Polk Active [place] cardiac pacemaker / Community Z95.0(ICD-10) Hospital Repository 06/05/2018 Unknown I10 - Essential John, Aristeo Active [place] (primary) hypertension Community / I10(ICD-10) Hospital Repository 06/05/2018 Unknown I48.2 - Chronic atrial John, Polk Active [place] fibrillation / Community I48.2(ICD-10) Hospital Repository 06/05/2018 Unknown Z98.61 - Coronary John, Polk Active [place] angioplasty status / Community Z98.61(ICD-10) Hospital Repository 06/05/2018 Unknown I47.1 - John, Polk Active [place] Supraventricular Community tachycardia / Hospital I47.1(ICD-10) Repository 06/05/2018 Unknown E78.5 - John, Polk Active [place] Hyperlipidemia, Community unspecified / Hospital E78.5(ICD-10) Repository 03/10/2018 Unknown I25.10 - Bowie, Active [place] Atherosclerotic heart Saloni Reyes [facility] disease [facility] coronary artery Repository without angina pectoris / I25.10(ICD-10) 03/10/2018 Unknown R55 - Syncope and Bowie, Active [place] collapse / R55(ICD-10) Saloni [facility] Repository 03/10/2018 Unknown R09.89 - Other Bowie, Active [place] specified symptoms and Saloni [facility] signs involving the Hospital circulatory and Repository respiratory systems / R09.89(ICD-10) 09/17/2017 Unknown E55.9 - Vitamin D Carlos, Dariusz Chi Active [place] deficiency, Community unspecified / Hospital E55.9(ICD-10) Repository PROCEDURES PROCEDURES No Procedure Records FoundRESULTS RESULTS PROTHROMBIN TIME W/INR Collected: 09/04/2018 Status: F Source: [place] 4:06 PM [facility] REPOSITORY TYPE CODE TESTS RESULT OUT OF RANGE REFERENCE UNITS LAB L300.4150 11.7-14.9 SECONDS High PROTIME 29.1 LAB L300.4200 Normal INR 2.7 Performed By: #### L300.3900 #### [facility] [address] [place], [address] PACEMAKER CHECK Observed: 09/04/2018 Status: F Source: [place] 9:50 AM [facility] REPOSITORY [facility] [address] [place] [address] Pacemaker Check Date of Service: 09/03/181746 MR#: [id number] Acct: [id number] Name: JULIAN JACOB Rep #: [id number] : 1935 From: Emiliana Joseph Age/Sex: 83/M [place] [facility] [place]: Signed Billing Codes PM Device Codes: PM Dev Interrogate (Remot 09/03/18 0931 <Electronically signed by Emiliana Joseph > Date Emiliana Joseph 09/04/18 0950<Electronically signed by Aristeo Lopez MD> Cosigner Signature: Date (if applicable) Aristeo Lopez MD CC: INITAL EVALUATION (1) Observed: 08/28/2018 Status: F Source: [place] - PT 5:46 PM [facility] REPOSITORY [facility] [address] [place] [address] / REHABILITATION SERVICES INITIAL EVALUATION MR#: [id number] Acct: [id number] Name: JULIAN JACOB Rep #: [id number] : 1935 82 From: Sandeep Bryan PT, Cert. T, OCS Referring Dr.: Dariusz Gonzalez MD Status: REG RCR Insurance: MEDICARE PART A B [place] Patient's Visit Information JULIAN JACOB is a 82 year old M referred to Physical Therapy by Dariusz Gonzalez MD with a diagnosis of DIFFICULTY WITH WALKING,WEAKNESS. Date of Evaluation: 08/27/18 Physical Therapist: Sandeep Bryan PT, Cert MDT, OCS - Visit Plan Frequency: 2x /Week Duration: 4 Weeks Plan: PROGRESSIVE BALANCE ,GAIT TRAINING,BLE STRENGTHING,CONDITIONING - Subjective Findings: This 82 y/o male presents to physical therapy with difficulty walking and weakness. Patient has gradually developed weakness . Patient had one episode fall 3 weeks ago mechanical fall. Patient has difficulty with ADL'S. Stairs one steps at a time. Denies parathesia/tingling. Denies dizzzines/nausea. Patient weakness impairs QOL and function. SOCAIL: lives with family. VOCATION: retired - Objective POSTURE: mild foward posture/hip knees flexed. GAIT: slow homa unsteady decrease step length ,shuffles steps ,hips/knees flexed. NEURO:INTACT. MMT: quads/hamd 4-/5,hip flexion /abd 3+/5 ,ankle 4/5. FLEXABLITY: hams mod tight. STAIRS: one step at time rail - Balance Scores Functional Gait Assessment Score: 6 % Disability: 80.0000 CATSIB Score (Max score 120 seconds): 60 - Goals Goal 1:: Patient to be Independant with HEP Goal Time Frame: 4-6 Weeks Goal 2:: Patient to improve quality of gait with improved pattern . Goal Time Frame: 4-6 Weeks Goal 3:: Patient to increase BLE strength by 1/2 grade to improve function and gait. Goal Time Frame: 4-6 Weeks Goal 4:: Patient to improve functional gait assessment score by 5-10 points to decrease risk of falls Goal Time Frame: 4-6 Weeks Goal 5:: Patient to improve CAT-SIB SCORE BY 5-10 points to decrease risk of falls. Goal Time Frame: 4-6 Weeks Goal 6:: Patient LFES score by 5-10 points or greater to improve QOL - Rehabilitation Potential Physical Therapy Diagnosis: Patient has weakness amd impaired balance with falls unstady gait thus benifit from skilled PT. Rehabilitation Potential: Good - Anticipated Interventions Patient/Client Instruction: Educate patient on: Condition, Plan of Care For the Purpose of:: To increase tolerance to activity/condition/position, To improve performance and independence with ADL's, To decrease level of supervision to perform tasks, To improve gait and locomotor functions, To improve endurance, To improve balance, To improve safety with gait, To improve tolerance to ADL's Therapeutic Exercise to Include: Strength training, Endurance training, Balance training, Gait and locomotor training Comment: BLE For the Purpose of:: To improve muscle performance and motor function, To improve ability to perform ADL's, To increase tolerance to activity/condition/position, To improve performance and independence with ADL's, To improve ability of physical actions for home/community/work/leisure, To improve gait and locomotor functions, To improve endurance, To improve balance, To improve safety with gait, To improve health and function, To improve ability to perform tasks related to life management Thank you for the opportunity to evaluate your patient. For Medicare and Medicare HMO plans, please review the plan of care and approve it. It will need to be FAXED BACK to us at [phone] for Medicare purposes. For Medicare only, by signing this I certify the plan of care. Please let me know if there are questions or concerns regarding this plan of care. Physician Signature: Date: <Electronically signed by Sandeep Bryan PT, Cert. MDT, OCS> 08/28/18 1746 CC: Dariusz Gonzalez MD HEATHER Signed PROTHROMBIN TIME W/INR Collected: 08/20/2018 Status: F Source: [place] 10:14 AM [facility] REPOSITORY TYPE CODE TESTS RESULT OUT OF RANGE REFERENCE UNITS LAB L300.4150 11.7-14.9 SECONDS High PROTIME 19.8 LAB L300.4200 Normal INR 1.7 Performed By: #### L300.3900 #### [facility] [address] [place], [address] DISCHARGE SUMMARY Observed: 08/15/2018 Status: F Source: [place] 12:40 PM [facility] REPOSITORY [facility] Medical Records Department [address] [place] [address] Discharge Summary 08/15/18 1238 MR#: [id number] Acct: [id number] Name: JULIAN JACOB Rep #: [id number] : 1935 82 From: Dariusz Gonzalez MD PCP: Dariusz Gonzalez MD, Chi Status: ADM IN Location: [place] [address] Discharge Date and Diagnosis - Problem List Patient Problems: Active and Suspected Problems (Last Reviewed 08/01/18 @ 00:55 by Fabian Elizabeth MD) Left hip pain (Acute) Hematoma (Acute) Debility (Acute) Date of Admission: 08/04/18 Date of Discharge: 08/15/18 - Primary Discharge Diagnosis Active and Suspected Problems (Last Reviewed 08/01/18 @ 00:55 by Fabian Elizabeth MD) Left hip pain (Acute) Hematoma (Acute) Debility (Acute) - Secondary Discharge Diagnosis Chronic Problems (Last Reviewed 08/01/18 @ 00:55 by Fabian Elizabeth MD) Atrial fibrillation (Chronic) Coronary artery disease (Chronic) Glaucoma (Chronic) Chronic ectopic atrial tachycardia (Chronic) History of syncope (Chronic) History of 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 (Chronic) 09/13/2008 History of 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 Birmingham: Proximal LAD Chronic atrial fibrillation (Chronic) Supraventricular tachycardia (Chronic) Carotid bruit (Chronic) Presence of permanent cardiac pacemaker (Chronic) Permanent Pacemaker insertion, single chamber 10/17/15, [employer] Bundle branch block, right (Chronic) Hypertension (Chronic) PAF (paroxysmal atrial fibrillation) (Chronic) Osteoarthritis (Chronic) Hypothyroidism (Chronic) S/P PTCA (percutaneous transluminal coronary angioplasty) (Chronic) 09/21/2004 @ [facility] per Dr. Birmingham: Proximal LAD Bundle branch block, left (Chronic) Hospital Course and Treatment Imaging Results: 08/08/18 15:52 Diet: Regular Diet Is pt able to select menu?: Yes Labs (Last 48 Hours) PT 36.4 H 33.0 H INR 3.6 H* 3.2 Microbiology 08/14/18 05:08 Mucosa - Nasopharyngeal Respiratory Panel (PCR) - Final Operations: None Procedures: None Summary of Care Provided: The patient is a 82 year old Male with below past medical history hospitalized for fall, left hip pain, unable to ambulate, left hip hematoma, admitted to TCU with debility, here for rehabilitation, strengthening, prior to discharge home with family. Discharge home with family, and outpatient physical therapy. Patient Problems: Active and Suspected Problems (Last Reviewed 08/01/18 @ 00:55 by Fabian Elizabeth MD) Left hip pain (Acute) Hematoma (Acute) Debility (Acute) - Physical Exam Vital Signs Temp Pulse Resp BP Pulse Ox 98 F 78 19 H 132/69 H 97 08/14/18 15:31 08/15/18 06:06 08/14/18 15:31 08/15/18 06:06 08/14/18 21:28 Oxygen Delivery Method Room Air Weight: 82.185 kg Body Mass Index (BMI) 21.2 Intake and Output for Last 24 Hours Intake Total 340 / 340 840 / 840 300 / 300 Output Total 375 / 375 500 / 500 Balance 340 / 340 465 / 465 -200 / -200 Microbiology Past 72 Hours 08/14/18 05:08 Respiratory Panel (PCR) - Final Mucosa - Nasopharyngeal Laboratory Tests Past 24 Hrs PT 33.0 H INR 3.2 Discharge Diet: No Restrictions Discharge Activity: Return to Normal Activity, May Shower, Use Crutches Weight Bearing Status: Weight bearing as tolerated Call your doctor if you observe: Fever of 101 or Higher, Inability to urinate, Inability to have a bowel movement, Shortness of breath, Chest pain, Uncontrolled pain Home Medications: Medications to take at Discharge levothyroxine 75 mcg capsule 75 mcg PO QDAY cap 11/07/17 Latanoprost 0.005% [Xalatan Opthalmic] 1 drop EACH EYE QHS 07/31/18 Acetaminophen [Tylenol] 1,000 mg PO Q8H PRN PRN #180 tablet 08/03/18 Atorvastatin Calcium [Lipitor] 10 mg PO QDAY 08/04/18 Warfarin [Coumadin] 3 mg PO SUSA #1 08/04/18 Warfarin [Coumadin] 5 mg PO MOTUWETHFR #0 08/04/18 Metoprolol Tartrate [Lopressor (beta gualberto)] 50 mg PO BID #60 tablet 08/15/18 Mineral Oil/Petrolatum,White [Eucerin] 1 applic TOPICAL DAILY@2200 jar 08/15/18 Polyethylene Glycol 3350 [Miralax] 17 gm PO DAILY #30 packet 08/15/18 Senna/Docusate Sodium [Senokot-S] 1 tablet PO BID #60 tablet 08/15/18 traMADol [Ultram] 50 mg PO Q6H PRN PRN #30 tab 08/15/18 Following Prescrptions Were Given to Patient: traMADol [Ultram] 50 mg PO Q6H PRN PRN #30 tab PRN Reason: Moderate Pain (4-5/10) Polyethylene Glycol 3350 [Miralax] 17 gm PO DAILY #30 packet Metoprolol Tartrate [Lopressor (beta gualberto)] 50 mg PO BID #60 tablet Senna/Docusate Sodium [Senokot-S] 1 tablet PO BID #60 tablet Primary Care Physician: Dariusz Gonzalez Chi, MD [Primary Care Provider] - Please follow up with your Primary Care Physician in: 1 week. Disposition: Home Minutes spent on discharge:: 30 Patient Condition:: Good Medical Necessity - Tobacco Use Smoking Status: Former smoker Tobacco Use: Non-smoker Meaningful Use Info Meaningful Use Diagnoses (Choose all that apply): None applicable 08/15/18 1240 <Electronically signed by Dariusz Gonzalez MD> Date Dariusz Gonzalez MD Cosigner Signature (if applicable): Date CC: Dariusz Gonzalez MD Signed DISCHARGE INSTRUCTION Observed: 08/15/2018 Status: F Source: [place] 12:38 PM [facility] REPOSITORY [facility] Medical Records Department [address] [place] [address] Instructions for Home/Discharge Instructions 08/15/18 1236 MR#: [id number] Acct: [id number] Name: JULIAN JACOB Rep #: [id number] : 1935 82 From: Dariusz Gonzalez MD PCP: Dariusz Gonzalez MD, Chi Status: ADM IN - Discharge Diagnoses Current Active Problems: Current Active and Chronic Problems (Last Reviewed 08/01/18 @ 00:55 by Fabian Elizabeth MD) Left hip pain (Acute) Hematoma (Acute) Debility (Acute) Atrial fibrillation (Chronic) Coronary artery disease (Chronic) Glaucoma (Chronic) You will use the following diet at home:: No restrictions, Regular Your food should be the consistency of: Regular Your liquids should be the consistency of: Regular/Thin Discharge Activity: Return to Normal Activity, May Shower, Use Crutches Weight Bearing Status: Weight bearing as tolerated Call your doctor if you observe: Fever of 101 or Higher, Inability to urinate, Inability to have a bowel movement, Shortness of breath, Chest pain, Uncontrolled pain Allergies/Adverse Reactions: Allergies No Known Allergies Allergy (Verified 07/31/18 23:57) Medications to take at Discharge levothyroxine 75 mcg capsule 75 mcg PO QDAY cap 11/07/17 Latanoprost 0.005% [Xalatan Opthalmic] 1 drop EACH EYE QHS 07/31/18 Acetaminophen [Tylenol] 1,000 mg PO Q8H PRN PRN #180 tablet 08/03/18 Atorvastatin Calcium [Lipitor] 10 mg PO QDAY 08/04/18 Warfarin [Coumadin] 3 mg PO SUSA #1 08/04/18 Warfarin [Coumadin] 5 mg PO MOTUWETHFR #0 08/04/18 Metoprolol Tartrate [Lopressor (beta gualberto)] 50 mg PO BID #60 tablet 08/15/18 Mineral Oil/Petrolatum,White [Eucerin] 1 applic TOPICAL DAILY@2200 jar 08/15/18 Polyethylene Glycol 3350 [Miralax] 17 gm PO DAILY #30 packet 08/15/18 Senna/Docusate Sodium [Senokot-S] 1 tablet PO BID #60 tablet 08/15/18 traMADol [Ultram] 50 mg PO Q6H PRN PRN #30 tab 08/15/18 The following prescriptions were given: traMADol [Ultram] 50 mg PO Q6H PRN PRN #30 tab PRN Reason: Moderate Pain (4-5/10) Polyethylene Glycol 3350 [Miralax] 17 gm PO DAILY #30 packet Metoprolol Tartrate [Lopressor (beta gualberto)] 50 mg PO BID #60 tablet Senna/Docusate Sodium [Senokot-S] 1 tablet PO BID #60 tablet Primary Care Physician: Dariusz Gonzalez Chi, MD [Primary Care Provider] - Please follow up with your Primary Care Physician in: 1 week. Test Results: Test results from this visit will be discussed in further detail at your follow-up appointment, if applicable. Proposed Discharge Date: 08/15/18 08/15/18 1238 <Electronically signed by Dariusz Gonzalez MD> Date Dariusz Gonzalez MD CC: Buddy FOREMANM; Dariusz Gonzalez MD Signed PROTHROMBIN TIME W/INR Collected: 08/15/2018 Status: F Source: [place] 5:25 AM [facility] REPOSITORY TYPE CODE TESTS RESULT OUT OF RANGE REFERENCE UNITS LAB L300.4150 11.7-14.9 SECONDS High PROTIME 33.0 LAB L300.4200 Normal INR 3.2 Performed By: #### L300.3900 #### [facility] [address] [place], [address] PROTHROMBIN TIME W/INR Collected: 08/14/2018 Status: F Source: [place] 5:10 AM [facility] REPOSITORY TYPE CODE TESTS RESULT OUT OF REFERENCE UNITS RANGE LAB L300.4150 11.7-14.9 SECONDS High PROTIME 36.4 LAB L300.4200 High alert INR 3.6 Result Comment: CRITICAL VALUE VERIFIED. CALLED TO LAYO BIANCHI 08/14/18 0625 Carrie Morgan. RESULTS READ BACK BY SAME . Performed By: #### L300.3900 #### [facility] [address] [place], [address] Observed: 08/14/2018 Status: F Source: [place] RESPIRATORY PANEL 5:08 AM [facility] MOLECULAR REPOSITORY Order Date: 08/14/18 Has pt arrived? Y RP PANEL ADENOVIRUS Not Detected HUMAN METAPHNEUMO Not Detected INFLUENZA A Not Detected INFLUENZA A (SUBTYPE H1) Not Detected INFLUENZA A (SUBTYPE H3) Not Detected INFLUENZA B Not Detected PARAINFLUENZA 1 Not Detected PARAINFLUENZA 2 Not Detected PARAINFLUENZA 3 Not Detected PARAINFLUENZA 4 Not Detected RHINOVIRUS Not Detected RSV A Not Detected RSV B Not Detected NAAT METHOD Testing was performed using nucleic acid amplification Performed By: #### M100.638 #### [facility] [address] [place], [address] CBC W/DIFF, AUTOMATED Collected: 08/12/2018 Status: F Source: [place] 5:10 AM [facility] REPOSITORY TYPE CODE TESTS RESULT OUT OF RANGE REFERENCE UNITS LAB L100.1000 4.4-11.0 K/mm3 Normal WBC 9.7 LAB L100.1200 4.6-6.2 M/mm3 Low RBC 4.48 LAB L100.1300 13.0-16.5 g/dl Normal HGB 13.4 LAB L100.1400 40-54 % Normal HCT 40.1 LAB L100.1500 80-94 fL Normal MCV 89.5 LAB L100.1600 27.0-32.0 pg Normal MCH 29.9 LAB L100.1700 32-36 g/gl Normal MCHC 33.4 LAB L100.1810 11.6-14.6 % High RDW CV 15.7 LAB L100.1820 35.1-43.9 fl High RDW SD 50.3 LAB L100.1900 150-450 K/mm3 Normal PLT 340 LAB L100.2000 6.2-12.0 fl Normal MPV 10.1 LAB L100.2100 47-70 % High NEUT% 70.6 LAB L100.2200 19-41 % Low LY% 13.5 LAB L100.2300 0-10 % Normal MONO% 8.7 LAB L100.2400 0-5 % High EO% 5.5 LAB L100.2500 0-1 % Normal BASO% 0.8 LAB L100.2550 0.0-0.9 % Normal IM GRAN % 0.900 Result Comment: IG% - Immature Granulocytes (promyelocytes, myelocytes and metamyelocytes) > 1% indicates that a LEFT SHIFT is Present. LAB L100.2620 2.0-7.7 X10 3/uL Normal Absolute Neut 6.8 LAB L100.2720 0.83-4.51 X10 3/ul Normal Absolute Lymph 1.31 Performed By: #### L100.0100 #### [facility] [address] [facility]. [place], [place], [address] BASIC METABOLIC Collected: 08/12/2018 Status: F Source: [place] PROFILE (BMP) 5:10 AM [facility] REPOSITORY TYPE CODE TESTS RESULT OUT OF RANGE REFERENCE UNITS LAB L501.0100 74-106 mg/dL Normal GLU 84 Result Comment: Please note revised GLUCOSE reference range effective 2017. LAB L501.1000 7-18 mg/dL High BUN 23 LAB L501.1100 0.70-1.30 mg/dL Normal CREAT,SERUM 1.23 Result Comment: The validity of the calculated GFR AND GFRAA in patients over 70 years has not been determined. Clinical correlation is essential. LAB L501.1110 >60 mL/min Normal EST GFR 60 Result Comment: Non- GFR Calc LAB L501.1115 >60 mL/min Normal EST GFR - AA 73 Result Comment: GFR Calc LAB L501.1255 ml/min Normal Estimated CRCL 54.76 LAB L501.1300 10-20 RATIO Normal BUN/CRE 18.7 LAB L501.2200 8.5-10 mg/dL Normal .1 CA 8.9 LAB L501.5300 136-14 mmol/L Normal 5 NA 140 LAB L501.5600 3.5-5. mmol/L Normal 1 K 4.2 LAB L501.5900 98-107 mmol/L Normal CL 104 LAB L501.6100 21.0-3 mmol/L Normal 2.0 CO2 26.0 LAB L501.6200 5-15 Normal GAP 10 Performed By: #### L500.2500 #### [facility] [address] [place], [place], [address] PROTHROMBIN TIME W/INR Collected: 08/11/2018 Status: F Source: [place] 5:30 AM [facility] REPOSITORY TYPE CODE TESTS RESULT OUT OF RANGE REFERENCE UNITS LAB L300.4150 11.7-14.9 SECONDS High PROTIME 27.1 LAB L300.4200 Normal INR 2.5 Performed By: #### L300.3900 #### [facility] [place], [place], [address] PROTHROMBIN TIME W/INR Collected: 08/06/2018 Status: F Source: [place] 5:25 AM [facility] REPOSITORY TYPE CODE TESTS RESULT OUT OF RANGE REFERENCE UNITS LAB L300.4150 11.7-14.9 SECONDS High PROTIME 26.4 LAB L300.4200 Normal INR 2.4 Performed By: #### L300.3900 #### [facility] [address] [place], [place], [address] CBC W/DIFF, AUTOMATED Collected: 08/05/2018 Status: F Source: [place] 5:25 AM [facility] REPOSITORY TYPE CODE TESTS RESULT OUT OF RANGE REFERENCE UNITS LAB L100.1000 4.4-11.0 K/mm3 High WBC 11.3 LAB L100.1200 4.6-6.2 M/mm3 Low RBC 4.34 LAB L100.1300 13.0-16.5 g/dl Low HGB 12.7 LAB L100.1400 40-54 % Low HCT 38.0 LAB L100.1500 80-94 fL Normal MCV 87.6 LAB L100.1600 27.0-32.0 pg Normal MCH 29.3 LAB L100.1700 32-36 g/gl Normal MCHC 33.4 LAB L100.1810 11.6-14.6 % Normal RDW CV 14.4 LAB L100.1820 35.1-43.9 fl High RDW SD 44.9 LAB L100.1900 150-450 K/mm3 Normal PLT 318 LAB L100.2000 6.2-12.0 fl Normal MPV 10.5 LAB L100.2100 47-70 % High NEUT% 72.4 LAB L100.2200 19-41 % Low LY% 15.6 LAB L100.2300 0-10 % Normal MONO% 6.6 LAB L100.2400 0-5 % Normal EO% 4.4 LAB L100.2500 0-1 % Normal BASO% 0.6 LAB L100.2550 0.0-0.9 % Normal IM GRAN % 0.400 Result Comment: IG% - Immature Granulocytes (promyelocytes, myelocytes and metamyelocytes) > 1% indicates that a LEFT SHIFT is Present. LAB L100.2620 2.0-7.7 X10 3/uL High Absolute Neut 8.2 LAB L100.2720 0.83-4.51 X10 3/ul Normal Absolute Lymph 1.76 Performed By: #### L100.0100 #### [facility] [address] [facility] [id number] PROTHROMBIN TIME W/INR Collected: 08/05/2018 Status: F Source: [place] 5:25 AM [facility] REPOSITORY TYPE CODE TESTS RESULT OUT OF RANGE REFERENCE UNITS LAB L300.4150 11.7-14.9 SECONDS High PROTIME 30.7 LAB L300.4200 Normal INR 2.9 Performed By: #### L300.3900 #### [facility] [address] [place], [address] BASIC METABOLIC Collected: 08/05/2018 Status: F Source: [place] PROFILE (BMP) 5:25 AM [facility] REPOSITORY TYPE CODE TESTS RESULT OUT OF RANGE REFERENCE UNITS LAB L501.0100 74-106 mg/dL Normal GLU 89 Result Comment: Please note revised GLUCOSE reference range effective 2017. LAB L501.1000 7-18 mg/dL Normal BUN 17 LAB L501.1100 0.70-1.30 mg/dL Normal CREAT,SERUM 1.09 Result Comment: The validity of the calculated GFR AND GFRAA in patients over 70 years has not been determined. Clinical correlation is essential. LAB L501.1110 >60 mL/min Normal EST GFR 69 Result Comment: Non- GFR Calc LAB L501.1115 >60 mL/min Normal EST GFR - AA 83 Result Comment: GFR Calc LAB L501.1255 ml/min Normal Estimated CRCL 56.38 LAB L501.1300 10-20 RATIO Normal BUN/CRE 15.6 LAB L501.2200 8.5-10 mg/dL Low .1 CA 8.3 LAB L501.5300 136-14 mmol/L Normal 5 NA 140 LAB L501.5600 3.5-5. mmol/L Normal 1 K 4.2 LAB L501.5900 98-107 mmol/L High CL 108 LAB L501.6100 21.0-3 mmol/L Normal 2.0 CO2 24.0 LAB L501.6200 5-15 Normal GAP 8 Performed By: #### L500.2500 #### [facility] [address] [facility] [place], [address] HISTORY AND PHYSICAL Observed: 08/04/2018 Status: F Source: [place] EXAM 7:59 PM [facility] REPOSITORY [facility] Medical Records Department [address] [place] [address] History and Physical 08/04/181942 MR#: [id number] Acct: [id number] Name: JULIAN JACOB Rep #: [id number] : 1935 82 From: Dariusz Gonzalez MD PCP: Carlos ALVARADO,Dariusz Nino Status: ADM IN Y Location: [place] [address] Problem List (1) Left hip pain Status: Acute (2) Hematoma Status: Acute (3) Debility Status: Acute (4) Atrial fibrillation Status: Chronic (5) Coronary artery disease Status: Chronic (6) Glaucoma Status: Chronic (7) Fall Status: Acute (8) Hyperlipidemia Status: Chronic (9) Hypertension Status: Chronic Qualifiers: (10) Osteoarthritis Status: Chronic (11) Hypothyroidism Status: Chronic History of Present Illness Date of Admission: 08/04/18 Chief Complaint: Here for rehabilitation, strengthening, prior to discharge home with family. The patient is a 82 year old Male with below past medical history presented to [facility] Emergency Department 07/31/2018 with trip, fall, left hip pain. Fell on carpet, landed on left hip. On coumadin for atrial fibrillation. X-ray left hip negative for fracture. Unable to walk. 07/31/2018 Admit to Hospital. Vicodin PRN pain, cold compresses PRN. Bactroban left elbow skin tear. 08/01/2018 Orthostasis treated with IV fluids. Left hip pain persists. 08/02/2018 IV fluids for hypotension. 08/03/2018 CT left hip negative fracture. Left gluteal hematoma noted. 08/04/2018 Admit to TCU for rehabilitation, strengthening, prior to discharge home with family. Monitor left hip hematoma. Past Medical History Past Medical History (Chronic Problems): Chronic Problems (Last Reviewed 08/01/18 @ 00:55 by Fabian Elizabeth MD) Atrial fibrillation (Chronic) Coronary artery disease (Chronic) Glaucoma (Chronic) Chronic ectopic atrial tachycardia (Chronic) History of syncope (Chronic) History of 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 (Chronic) 09/13/2008 History of craniotomy (Chronic) 09/13/08 for 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 shelter current use of anticoagulant (Chronic) Premature ventricular contractions (Chronic) Hyperlipidemia (Chronic) Atherosclerotic heart disease of [place] coronary artery without angina pectoris (Chronic) PTCA and FORD 09/21/2004 @ [facility] per Dr. Birmingham: Proximal LAD Chronic atrial fibrillation (Chronic) Supraventricular tachycardia (Chronic) Carotid bruit (Chronic) Presence of permanent cardiac pacemaker (Chronic) Permanent Pacemaker insertion, single chamber 10/17/15, [employer] Bundle branch block, right (Chronic) Hypertension (Chronic) PAF (paroxysmal atrial fibrillation) (Chronic) Osteoarthritis (Chronic) Hypothyroidism (Chronic) S/P PTCA (percutaneous transluminal coronary angioplasty) (Chronic) 09/21/2004 @ [facility] per Dr. Birmingham: Proximal LAD Bundle branch block, left (Chronic) Medical History: Medical History (Last Reviewed 08/01/18 @ 00:55 by Fabian Elizabeth MD) Chronic ectopic atrial tachycardia (Chronic) I47.1 History of syncope (Chronic) Z87.898 History of 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 (Chronic) Z86.79 09/13/2008 shelter current use of anticoagulant (Chronic) Z79.01 Premature ventricular contractions (Chronic) I49.3 Hyperlipidemia (Chronic) E78.5 Atherosclerotic heart disease of [place] coronary artery without angina pectoris (Chronic) I25.10 PTCA and FORD 09/21/2004 @ [facility] per Dr. Birmingham: Proximal LAD Chronic atrial fibrillation (Chronic) I48.2 Supraventricular tachycardia (Chronic) I47.1 Carotid bruit (Chronic) R09.89 Bundle branch block, right (Chronic) I45.10 Hypertension (Chronic) I10 PAF (paroxysmal atrial fibrillation) (Chronic) I48.0 Hypothyroidism (Chronic) E03.9 Bundle branch block, left (Chronic) I44.7 Edema R60.9 Memory loss R41.3 Shortness of breath R06.02 Syncope and collapse R55 Allergies No Known Allergies Allergy (Verified 07/31/18 23:57) Home Medications: Ambulatory Orders Medication Instructions Recorded levothyroxine 75 mcg capsule 75 mcg PO QDAY cap 11/07/17 Latanoprost 0.005% [Xalatan 1 drop EACH EYE QHS 07/31/18 Opthalmic] Surgical History: Surgical History (Last Reviewed 08/01/18 @ 00:55 by Fabian Elizabeth MD) History of craniotomy (Chronic) Z98.890 09/13/08 for 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 Presence of permanent cardiac pacemaker (Chronic) Z95.0 Permanent Pacemaker insertion, single chamber 10/17/15, [employer] S/P PTCA (percutaneous transluminal coronary angioplasty) (Chronic) Z98.61 09/21/2004 @ [facility] per Dr. 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 Psychiatric History: No pertinent psych hx Lives: With Family Smoking Status: Former smoker Tobacco Use: Non-smoker Alcohol: None Drugs: None - *Family History Maternal Family History: Family History (Last Reviewed 08/01/18 @ 00:55 by Fabian Elizabeth MD) Father CAD (coronary artery disease) Myocardial infarction Sudden cardiac Mother No problems noted. Uncle CAD (coronary artery disease) Sudden cardiac Myocardial infarction Other Heart disease History Items: No pertinent history Paternal Family History: Family History (Last Reviewed 08/01/18 @ 00:55 by Fabian Elizabeth MD) Father CAD (coronary artery disease) Myocardial infarction Sudden cardiac Mother No problems noted. Uncle CAD (coronary artery disease) Sudden cardiac Myocardial infarction Other Heart disease History Items: - - father had mi at age 69 Review of Systems Constitutional: Denies: Chills, Fever, Weight Change HEENT: Denies: Head Aches, Sinus Congestion, Sinus Drainage Cardiovascular: Denies: Chest Pain, Palpitations Respiratory: Denies: Cough, Shortness of breath at rest, Sputum production Gastrointestinal: Denies: Abdominal Pain, Nausea, Vomiting Genitourinary: Denies: Dysuria Musculoskeletal: Denies: Joint Pain, Joint Tenderness Skin: Denies: Rash, Wounds Neurological: Denies: Numbness, Tingling, Focal weakness Psychiatric: Denies: Anxiety, Depression, Homicidal Ideations, Suicidal Ideations Hematologic/ Lymphatic: Denies: Easy Bruising, Easy Bleeding VTE Information - Inpt Only VTE Present on Admission: No VTE Mechan Device Prophylaxis: Knee High RADHA Hose VTE Pharm Prophylaxis ordered?: No Reason prophylaxis not ordered:: Treatment Not Indicated Patient Problems: Active and Suspected Problems (Last Reviewed 08/01/18 @ 00:55 by Fabian Elizabeth MD) Left hip pain (Acute) Hematoma (Acute) Debility (Acute) - Physical Exam General: Alert, Oriented x3, Cooperative HEENT: Atraumatic, PERRLA, EOMI, Normocephalic Neck: Supple, No JVD, Negative Carotid Bruits Lungs: Clear to auscultation, Normal air movement Cardiovascular: Regular rate, No murmurs Abdomen: Bowel Sounds Present, Soft, Non Tender Extremities: No edema, Capillary Refill Less than 3 Seconds Skin: No rashes, Skin Tear - Left elbow dressed. Musculoskeletal: No Tenderness to Palpation of Joints or Extremities, - - Left hip hematoma. Neurological: Cranial nerves II-XII grossly intact Psych/Mental Status: Normal Affect, Appropriate Vital Signs Temp Pulse Resp BP Pulse Ox 97.3 F L 91 16 108/86 H 98 08/04/18 14:45 08/04/18 14:45 08/04/18 14:45 08/04/18 14:45 08/04/18 14:45 Oxygen Delivery Method Room Air Weight: 75 kg Body Mass Index (BMI) 21.2 Intake and Output for Last 24 Hours Intake Total 120 / 120 Balance 120 / 120 Assessment/Plan All Active Problems (Last Reviewed 08/01/18 @ 00:55 by Fabian Elizabeth MD) Fall (Acute) Hip pain (Acute) Left hip pain (Acute) Hematoma (Acute) Debility (Acute) Syncope (Resolved) Lower GI bleed (Resolved) 82 year old male with below past medical history hospitalized for fall, left hip pain, unable to ambulate, left hip hematoma, admitted to TCU with debility, here for rehabilitation, strengthening, prior to discharge home with family. * Debility - PT/OT. * Pain - Tylenol 1000MG Q8H PRN mild pain, Oxycodone 5MG Q4H PRN severe pain. * Bowel - Miralax 17GM daily, Senna/colace 1 tablet BID, Dulcolax 10MG DC daily PRN. * Pneumonia vaccination - Administer Prevnar 13 and/or Pneumovax 23 as necessary. * DVT prophylaxis - Not necessary, already on warfarin. * Hyperlipidemia - Atorvastatin 10MG QHS. * Glaucoma - Xalatan 0.005% 1GTT OU QHS. * Hypothyroidism - Levothyroxine 75MCG daily. * Atrial Fibrillation - Metoprolol succinate 50MG QHS, warfarin 5MG 5 days/week, 3MG 2 days/week. * Left elbow skin tear - Bactroban topically BID. * Left hip hematoma - Monitor, if it becomes infected, consider antibiotic treatment and/or incision and drainage. Consider holding anticoagulation. 08/04/181958 <Electronically signed by Dariusz Gonzalez MD> Date Dariusz Gonzalez MD Cosigner Signature: Date (if applicable) CC: Dariusz Gonzalez MD Signed DISCHARGE SUMMARY Observed: 08/04/2018 Status: F Source: [place] 2:37 PM [facility] REPOSITORY [facility] Medical Records Department [address] [place] [address] Discharge Summary 08/04/18 1129 MR#: [id number] Acct: [id number] Name: JULIAN JACOB Rep #: [id number] : 1935 82 From: Patrice Hill MD PCP: Dariusz Gonzalez MD, Chi Status: DIS IN Y [id number] Dis[facility] Date and Diagnosis - Problem List Patient Problems: Active and Suspected Problems (Last Reviewed 08/01/18 @ 00:55 by Fabian Elizabeth MD) Fall (Acute) Hip pain (Acute) Date of Admission: 07/31/18 Date of Discharge: 08/04/18 - Primary Discharge Diagnosis Active and Suspected Problems (Last Reviewed 08/01/18 @ 00:55 by Fabian Elizabeth MD) Fall (Acute) Hip pain (Acute) Acute left hip pain. Dislocation or fracture ruled out - Secondary Discharge Diagnosis Chronic Problems (Last Reviewed 08/01/18 @ 00:55 by Fabian Elizabeth MD) Chronic ectopic atrial tachycardia (Chronic) History of syncope (Chronic) History of 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 (Chronic) 09/13/2008 History of craniotomy (Chronic) 09/13/08 for 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 shelter current use of anticoagulant (Chronic) Premature ventricular contractions (Chronic) Hyperlipidemia (Chronic) Atherosclerotic heart disease of [place] coronary artery without angina pectoris (Chronic) PTCA and FORD 09/21/2004 @ [facility] per Dr. Birmingham: Proximal LAD Chronic atrial fibrillation (Chronic) Supraventricular tachycardia (Chronic) Carotid bruit (Chronic) Presence of permanent cardiac pacemaker (Chronic) Permanent Pacemaker insertion, single chamber 10/17/15, [employer] Bundle branch block, right (Chronic) Hypertension (Chronic) PAF (paroxysmal atrial fibrillation) (Chronic) Osteoarthritis (Chronic) Hypothyroidism (Chronic) S/P PTCA (percutaneous transluminal coronary angioplasty) (Chronic) 09/21/2004 @ [facility] per Dr. Birmingham: Proximal LAD Bundle branch block, left (Chronic) Hospital Course and Treatment Operations: None Summary of Care Provided: The patient is a 82-year-old male with past medical history of chronic atrial fibrillation, hypertension, hyperlipidemia, status post pacemaker comes in after a fall with left hip pain. X-ray of the pelvis and hip was negative for any acute fractures. The patient was admitted to the regular medical floor. Pain was controlled. 1. Orthostatic hypotension, related to dehydration, resolved with IV fluids. 2. Acute left hip pain secondary to fall, x-ray did not reveal old fracture, CT scan of the hip was negative for acute fracture, pain is fairly controlled. The patient was assessed by PT and OT and recommended SNF placement. 3. Chronic atrial fibrillation, rate controlled, on metoprolol and Coumadin at home. INR is 3.1. Coumadin held. Follow-up INR tomorrow and titrate the dose of Coumadin accordingly 4. Hypertension, controlled. 5. Hyperlipidemia, on Lipitor 6. Hypothyroidism, on Synthroid 7. DVT Ppx-INR supratherapeutic, 3.1 Discharge medication reconciliation done. Discharge follow- up instructions completed. Patient is being discharged to TCU for further rehab and still having pain and not able to transfer from bed to chair. Total time spent, exact 35 minutes on discharge meds reconciliation, examination, review of imaging and blood test and discussion with the patient on follow-up instructions. Patient Problems: Active and Suspected Problems (Last Reviewed 08/01/18 @ 00:55 by Fabian Elizabeth MD) Fall (Acute) Hip pain (Acute) Subjective: Patient seen and examined today. Patient is comfortable while laying on bed but gets pain on movement of left lower extremity or changing the posture. Patient has constipation. Did not move bowel since Saturday. Laxative is started - Physical Exam General: Alert, Oriented x3, Cooperative HEENT: Atraumatic, PERRLA, EOMI, Normocephalic Neck: Supple, No JVD, Negative Carotid Bruits Lungs: Clear to auscultation, Normal air movement, No rhonchi, No wheeze, No rales Cardiovascular: Regular rate, Regular Rhythm, Normal S1, Normal S2, No murmurs Abdomen: Bowel Sounds Present, Soft, Non Tender, Non-Distended Extremities: No edema, Capillary Refill Less than 3 Seconds Skin: No rashes, No breakdown Musculoskeletal: Arthritic Changes, Tenderness - Tenderness present over left hip joint Neurological: Cranial nerves II-XII grossly intact, Deep Tendon Reflexes 2+/4 and Symmetrical, Neuro grossly intact Psych/Mental Status: Normal Affect, Appropriate Vital Signs Temp Pulse Resp BP Pulse Ox 97.6 F L 100 18 121/77 H 98 08/04/18 09:35 08/04/18 09:35 08/04/18 09:35 08/04/18 09:35 08/04/18 09:35 Oxygen Delivery Method Room Air Weight: 186 lb 11.704 oz Body Mass Index (BMI) 23.9 Orthostatic Vital Signs Start: 08/01/18 10:36 Freq: q24h Status: Active Protocol: Activity Type Activity Date Activity User E-Sign Co-Sign Detail Recorded Client Recorded Date Recorded By Document 08/04/18 06:14 KJU [id number] 08/04/18 06:25 KJU Orthostatic Vitals Standing -Blood Pressure (90/60-120/80) 88/65 L -Extremity Use Right Arm -Pulse Rate (60-100) 66 Sitting -Blood Pressure (90/60-120/80) 142/99 H Intake and Output for Last 24 Hours Intake Total 4155 / 4155 2222 / 2222 440 / 440 Output Total 2600 / 2600 1950 / 1950 450 / 450 Balance 1555 / 1555 272 / 272 -10 / -10 Laboratory Tests Past 24 Hrs PT 31.9 H INR 3.1 Discharge Activity: Return to Normal Activity, May not drive while taking narcotic pain medications., Use Walker Weight Bearing Status: Weight bearing as tolerated Home Medications: Medications to take at Discharge atorvastatin 10 mg tablet 10 mg PO QDAY #90 tab 11/07/17 levothyroxine 75 mcg capsule 75 mcg PO QDAY cap 11/07/17 Latanoprost 0.005% [Xalatan Opthalmic] 1 drop EACH EYE QHS 07/31/18 Metoprolol Succinate [Toprol Xl] 50 mg PO QHS 08/01/18 Acetaminophen [Tylenol] 1,000 mg PO Q8H PRN PRN #180 tablet 08/03/18 Oxycodone [Oxyir] 5 mg PO Q4H PRN PRN 5 Days #10 tablet 08/03/18 Bisacodyl [Dulcolax] 10 mg RECTAL DAILY PRN PRN suppos. 08/04/18 Docusate Sodium [Colace] 200 mg PO BID capsule 08/04/18 Mupirocin [Bactroban] 1 applic TOPICAL BID tube 08/04/18 Polyethylene Glycol 3350 [Miralax] 17 gm PO DAILY packet 08/04/18 Warfarin [Coumadin] 3 mg PO SUSA #1 08/04/18 Warfarin [Coumadin] 5 mg PO MOTUWETHFR #0 08/04/18 Following Prescrptions Were Given to Patient: Oxycodone [Oxyir] 5 mg PO Q4H PRN PRN 5 Days #10 tablet PRN Reason: Severe Pain (6-05/28) Acetaminophen [Tylenol] 1,000 mg PO Q8H PRN PRN #180 tablet PRN Reason: Pain Primary Care Physician: Dariusz Gonzalez Chi, MD [Primary Care Provider] - Please follow up with your Primary Care Physician in: within 2 weeks Patient Instructions: ED Contusion Hip Medical Necessity - Tobacco Use Smoking Status: Former smoker Meaningful Use Info Meaningful Use Diagnoses (Choose all that apply): None applicable Code Visit Inpatient E AND M: 39553 Disch Hosp 08/04/18 1437 <Electronically signed by Patrice Hill MD> Date Patrice Hill MD Cosigner Signature (if applicable): Date CC: Patrice Hill MD; Dariusz Gonzalez MD Signed TRANSFER TO EXTENDED Observed: 08/04/2018 Status: F Source: [facility] 11:29 AM [facility] REPOSITORY [facility] Medical Records Department [address] [place] [address] Transfer to Extended Care MR#: [id number] Acct: [id number] Name: JULIAN JACOB Rep #: [id number] : 1935 82 From: Patrice Hill MD PCP: Dariusz Gonzalez MD, Chi [facility] (Health Ins. Claim No.) (Day of Discharge to Facility) Certification of patient admission REQUIRED AT TIME OF ADMISSION. I CERTIFY THAT POST-HOSPITAL ECF SERVICES ARE REQUIRED TO BE GIVEN ON AN IN-PATIENT BASIS BECAUSE OF THE ABOVE NAMED PATIENT'S NEED FOR HALF-WAY CARE ON A CONTINUING BASIS FOR THE CONDITION(S) FOR WHICH HE/SHE WAS RECEIVING IN-PATIENT HOSPITAL SERVICES PRIOR TO HIS/HER TRANSFER TO THE ECF. 08/04/181128 <Electronically signed by Patrice Hill MD> Date Patrice Hill MD - Diet 08/01/18 00:50 Diet: Cardiac/Low Cholesterol Food consistency:: Regular Liquid Consistency:: Regular/Thin Is pt able to select menu?: Yes - Routine Orders/Code Status Suppository Type: Dulcolax 10mg Suppository Frequency: Daily PRN Routine Lab Work: CBC - within 3 days, BMP - within 3 days, INR - daily - Wound(s) Left Elbow Wound Type: Abrasion - Therapies Weight Bearing: Weight bearing as tolerated Extremity Affected:: Bilateral Lower Physical Therapy: Eval and Treat Occupational Therapy: Eval and Treat - Allergies/Procedures Done in Hospital Allergies/Adverse Reactions: Allergies No Known Allergies Allergy (Verified 07/31/18 23:57) Procedures: None - Type of Care/Length of Stay Estimated LOS: Convalescent Care Less Than 30 days Type of Care Needed: Skilled Rehab Potential: Good Prognosis: Good - Additional Orders/Day of Discharge Additional Orders: Hold Coumadin and resume when INR is 2.5 and titrate the dose as per INR Day of Discharge: 08/04/18 - Follow Up Care Primary Care Physician: Dariusz Gonzalez Chi, MD [Primary Care Provider] - Please follow up with your Primary Care Physician in: within 2 weeks 08/04/181128 <Electronically signed by Patrice Hill MD> Date Patrice Hill MD CC: Dariusz Gonzalez MD Signed PROTHROMBIN TIME W/INR Collected: 08/04/2018 Status: F Source: [place] 5:24 AM [facility] REPOSITORY TYPE CODE TESTS RESULT OUT OF RANGE REFERENCE UNITS LAB L300.4150 11.7-14.9 SECONDS High PROTIME 31.9 LAB L300.4200 Normal INR 3.1 Performed By: #### L300.3900 #### [facility] [address] [place], [address] TRANSFER TO [facility] Observed: 08/03/2018 Status: F Source: [facility] 11:58 AM [facility] REPOSITORY [facility] Medical Records Department [address] [place] [address] Transfer to Extended Care MR#: [id number] Acct: [id number] Name: JULIAN JACOB Rep #: [id number] : 1935 82 From: Denisse Wong MD PCP: Carlos ALVARADO,Dariusz Nino Status: ADM IN [facility] (Patient) (Health Ins. Claim No.) (Day of Discharge to Facility) Certification of patient admission REQUIRED AT TIME OF ADMISSION. I CERTIFY THAT POST-HOSPITAL ECF SERVICES ARE REQUIRED TO BE GIVEN ON AN IN-PATIENT BASIS BECAUSE OF THE ABOVE NAMED PATIENT'S NEED FOR HALF-WAY CARE ON A CONTINUING BASIS FOR THE CONDITION(S) FOR WHICH HE/SHE WAS RECEIVING IN-PATIENT HOSPITAL SERVICES PRIOR TO HIS/HER TRANSFER TO THE F. 08/03/18 1158 <Electronically signed by Denisse Wong MD> Date Denisse Wong MD - Diet 08/01/18 00:50 Diet: Cardiac/Low Cholesterol Food consistency:: Regular Liquid Consistency:: Regular/Thin Is pt able to select menu?: Yes - Routine Orders/Code Status Routine Lab Work: CBC - within 3 days, BMP - within 3 days, INR - daily - Wound(s) Left Elbow Wound Type: Hematoma - left hip - Therapies Weight Bearing: Weight bearing as tolerated Extremity Affected:: Bilateral Lower Physical Therapy: Eval and Treat Occupational Therapy: Eval and Treat - Allergies/Procedures Done in Hospital Allergies/Adverse Reactions: Allergies No Known Allergies Allergy (Verified 07/31/18 23:57) Procedures: None - Type of Care/Length of Stay Estimated LOS: Convalescent Care Less Than 30 days Type of Care Needed: Skilled Rehab Potential: Good Prognosis: Good - Additional Orders/Day of Discharge Day of Discharge: 08/04/18 - Follow Up Care Primary Care Physician: Dariusz Gonzalez Chi, MD [Primary Care Provider] - Please follow up with your Primary Care Physician in: within 2 weeks 08/03/18 1158 <Electronically signed by Denisse Wong MD> Date Denisse Wong MD CC: Dariusz Gonzalez MD Signed DISCHARGE INSTRUCTION Observed: 08/03/2018 Status: F Source: [place] [place] 11:52 AM [facility] REPOSITORY [facility] Medical Records Department [address] [place] [id number] Instructions for Home/Discharge Instructions 08/03/18 1148 MR#: [id number] Acct: [id number] Name: JULIAN JACOB Rep #: [id number] : 1935 82 From: Denisse Wong MD PCP: Dariusz Gonzalez MD, Chi Status: ADM IN - Discharge Diagnoses Current Active Problems: Current Active and Chronic Problems (Last Reviewed 08/01/18 @ 00:55 by Fabian Elizabeth MD) Fall (Acute) Hip pain (Acute) Reason(s) for Visit for Discharge Instructions: Fall, left hip pain You will use the following diet at home:: Cardiac Your food should be the consistency of: Regular Your liquids should be the consistency of: Regular/Thin Discharge Activity: Return to Normal Activity, May not drive while taking narcotic pain medications., Use Walker Weight Bearing Status: Weight bearing as tolerated Instructions: ED Contusion Hip Additional Instructions: Take Tylenol 1000 mg every 8 hours as needed for pain. Use the walker for ambulating. May take oxycodone as needed for pain. Follow- up with your primary care doctor for further evaluation for the left hip hematoma. Follow-up with your primary care doctor for scheduled INR draws. Have been referred for outpatient physical therapy to work on your gait. Allergies/Adverse Reactions: Allergies No Known Allergies Allergy (Verified 07/31/18 23:57) Medications to take at Discharge Warfarin [Coumadin] 3.5 mg PO SUSA 09/18/17 Warfarin [Coumadin] 5 mg PO [id number] 09/18/17 atorvastatin 10 mg tablet 10 mg PO QDAY #90 tab 11/07/17 levothyroxine 75 mcg capsule 75 mcg PO QDAY cap 11/07/17 Latanoprost 0.005% [Xalatan Opthalmic] 1 drop EACH EYE QHS 07/31/18 Metoprolol Succinate [Toprol Xl] 50 mg PO QHS 08/01/18 Acetaminophen [Tylenol] 1,000 mg PO Q8H PRN PRN #180 tablet 08/03/18 Oxycodone [Oxyir] 5 mg PO Q4H PRN PRN 5 Days #10 tablet 08/03/18 The following prescriptions were given: Oxycodone [Oxyir] 5 mg PO Q4H PRN PRN 5 Days #10 tablet PRN Reason: Severe Pain (6-10/10) Acetaminophen [Tylenol] 1,000 mg PO Q8H PRN PRN #180 tablet PRN Reason: Pain Primary Care Physician: Dariusz Gonzalez Chi, MD [Primary Care Provider] - Please follow up with your Primary Care Physician in: within 2 weeks Test Results: Test results from this visit will be discussed in further detail at your follow-up appointment, if applicable. Proposed Discharge Date: 08/03/18 08/03/18 1152 <Electronically signed by Denisse Wong MD> Date Denisse Wong MD CC: Dariusz Gonzalez MD EXTREMITY LOWER Observed: 08/03/2018 Status: F Source: [place] WITHOUT CONTRA 9:35 [facility] REPOSITORY [facility] Imaging Services [address] [place] [address] Extremity Lower without Contra MR#: [id number] Acct: [id number] Name: ARIELARubénMONTYJULIAN Vijay Rep #: [id number] : 1935 M 82 From: Alejandro Marte MD PCP: Dariusz Gonzalez MD, Chi Status: ADM IN Study: Extremity Lower without Contra Date of Exam: 08/03/18 Exam# [id number] Ordering Dr: Denisse Wong MD CT left hip without IV contrast INDICATION: Patient fell 3 days ago landing onto the left buttock, persistent pain TECHNIQUE: Axial CT imaging of the left hip performed without IV contrast. Sagittal and coronal reconstruction images are provided. FINDINGS: The left hip is normally aligned without evidence of dislocation. Visualized left hemipelvis is unremarkable without demonstrated fracture. Degenerative changes of the lumbar spine partially visualized. Mild arthrosis of the left sacroiliac joint with anterior spurring. [place] calcifications of the left proximal iliotibial band likely sequela of old injury. The left femoral head and proximal femur intact without evidence of fracture. There is soft tissue swelling of the lateral hip. A focal, hyperdense fluid collection of the left posterior hip measures 5.2 x 9.2 x 8.5 cm and centered within the left gluteus muscle. The prostate is moderately enlarged but incompletely visualized. Vascular calcifications are present. There are 2 round calcifications projecting along the superior aspect of the prostate or within or adjacent to posterior wall of the urinary bladder (image 9). CT/Extremity Lower without Contra IMPRESSION: 1. NO fracture of the left hip/visualized pelvis. 2. 5.2 x 9.2 x 8.5 cm left gluteal intramuscular hematoma. Lateral hip stranding/contusion. 3. Degenerative changes of the lumbar spine and sacroiliac joint. 4. Sequela of old injury or degeneration of the proximal iliotibial band. 5. Prostatomegaly, incompletely visualized. 6. Rounded calcifications either within the prostate gland or in wall/lumen of the urinary bladder. Ultrasound may assist in differentiation. 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 CBC W/DIFF, AUTOMATED Collected: 08/02/2018 Status: F Source: [place] 7:25 AM [facility] REPOSITORY TYPE CODE TESTS RESULT OUT OF RANGE REFERENCE UNITS LAB L100.1000 4.4-11.0 K/mm3 High WBC 11.5 LAB L100.1200 4.6-6.2 M/mm3 Low RBC 4.10 LAB L100.1300 13.0-16.5 g/dl Low HGB 12.1 LAB L100.1400 40-54 % Low HCT 35.6 LAB L100.1500 80-94 fL Normal MCV 86.8 LAB L100.1600 27.0-32.0 pg Normal MCH 29.5 LAB L100.1700 32-36 g/gl Normal MCHC 34.0 LAB L100.1810 11.6-14.6 % Normal RDW CV 14.0 LAB L100.1820 35.1-43.9 fl Normal RDW SD 43.6 LAB L100.1900 150-450 K/mm3 Normal PLT 266 LAB L100.2000 6.2-12.0 fl Normal MPV 10.3 LAB L100.2100 47-70 % High NEUT% 75.5 LAB L100.2200 19-41 % Low LY% 13.2 LAB L100.2300 0-10 % Normal MONO% 7.4 LAB L100.2400 0-5 % Normal EO% 2.9 LAB L100.2500 0-1 % Normal BASO% 0.5 LAB L100.2550 0.0-0.9 % Normal IM GRAN % 0.500 Result Comment: IG% - Immature Granulocytes (promyelocytes, myelocytes and metamyelocytes) > 1% indicates that a LEFT SHIFT is Present. LAB L100.2620 2.0-7.7 X10 3/uL High Absolute Neut 8.7 LAB L100.2720 0.83-4.51 X10 3/ul Normal Absolute Lymph 1.52 Performed By: #### L100.0100 #### [facility] [address] [place], [place], [address] PROTHROMBIN TIME W/INR Collected: 08/02/2018 Status: F Source: [place] 7:25 AM [facility] REPOSITORY TYPE CODE TESTS RESULT OUT OF RANGE REFERENCE UNITS LAB L300.4150 11.7-14.9 SECONDS High PROTIME 29.9 LAB L300.4200 Normal INR 2.8 Performed By: #### L300.3900 #### [facility] [address] [place], [place], [address] BASIC METABOLIC Collected: 08/02/2018 Status: F Source: [place] PROFILE (BMP) 7:25 AM [facility] REPOSITORY TYPE CODE TESTS RESULT OUT OF RANGE REFERENCE UNITS LAB L501.0100 74-106 mg/dL Normal GLU 94 Result Comment: Please note revised GLUCOSE reference range effective 2017. LAB L501.1000 7-18 mg/dL High BUN 21 LAB L501.1100 0.70-1.30 mg/dL Normal CREAT,SERUM 1.11 Result Comment: The validity of the calculated GFR AND GFRAA in patients over 70 years has not been determined. Clinical correlation is essential. LAB L501.1110 >60 mL/min Normal EST GFR 67 Result Comment: Non- GFR Calc LAB L501.1115 >60 mL/min Normal EST GFR - AA 82 Result Comment: GFR Calc LAB L501.1255 ml/min Normal Estimated CRCL 60.68 LAB L501.1300 10-20 RATIO Normal BUN/CRE 18.9 LAB L501.2200 8.5-10 mg/dL Low .1 CA 7.8 LAB L501.5300 136-14 mmol/L Normal 5 NA 141 LAB L501.5600 3.5-5. mmol/L Normal 1 K 4.1 LAB L501.5900 98-107 mmol/L High CL 110 LAB L501.6100 21.0-3 mmol/L Normal 2.0 CO2 23.0 LAB L501.6200 5-15 Normal GAP 8 Performed By: #### L500.2500 #### [facility] [address] [place], [address] CBC W/DIFF, AUTOMATED Collected: 08/01/2018 Status: F Source: [place] 1:30 PM [facility] REPOSITORY TYPE CODE TESTS RESULT OUT OF RANGE REFERENCE UNITS LAB L100.1000 4.4-11.0 K/mm3 High WBC 13.8 LAB L100.1200 4.6-6.2 M/mm3 Low RBC 4.23 LAB L100.1300 13.0-16.5 g/dl Low HGB 12.5 LAB L100.1400 40-54 % Low HCT 36.7 LAB L100.1500 80-94 fL Normal MCV 86.8 LAB L100.1600 27.0-32.0 pg Normal MCH 29.6 LAB L100.1700 32-36 g/gl Normal MCHC 34.1 LAB L100.1810 11.6-14.6 % Normal RDW CV 14.0 LAB L100.1820 35.1-43.9 fl High RDW SD 44.0 LAB L100.1900 150-450 K/mm3 Normal PLT 271 LAB L100.2000 6.2-12.0 fl Normal MPV 10.0 LAB L100.2100 47-70 % High NEUT% 79.7 LAB L100.2200 19-41 % Low LY% 12.4 LAB L100.2300 0-10 % Normal MONO% 5.7 LAB L100.2400 0-5 % Normal EO% 1.4 LAB L100.2500 0-1 % Normal BASO% 0.4 LAB L100.2550 0.0-0.9 % Normal IM GRAN % 0.400 Result Comment: IG% - Immature Granulocytes (promyelocytes, myelocytes and metamyelocytes) > 1% indicates that a LEFT SHIFT is Present. LAB L100.2620 2.0-7.7 X10 3/uL High Absolute Neut 11.0 LAB L100.2720 0.83-4.51 X10 3/ul Normal Absolute Lymph 1.72 Performed By: #### L100.0100 #### [facility] [address] [place], [place], [address] VITAMIN D,25 HYDROXY Collected: 08/01/2018 Status: F Source: [place] 5:46 AM [facility] REPOSITORY TYPE CODE TESTS RESULT OUT OF REFERENCE UNITS RANGE LAB L506.1000 29.95-100.01 ng/mL Low Vitamin D 28.9 25-OH Result Comment: Vitamin D 25(OH) Status Range Deficiency <20 ng/mL (50nmol/L) Insuffciency 20 - 30 ng/mL (50 - 75 nmol/L) Sufficiency 30 - 100 ng/mL (75 - 250 nmol/L) Toxicity >100 ng/mL (>250 nmol/L) Performed By: #### L506.1000 #### [facility] [address] [place], [address] HISTORY AND PHYSICAL Observed: 08/01/2018 Status: F Source: [place] EXAM 3:08 AM [facility] REPOSITORY [facility] Medical Records Department [address] [place] [address] History and Physical 07/31/18 2223 MR#: [id number] Acct: [id number] Name: JULIAN JACOB Rep #: [id number] : 1935 82 From: Fabian Elizabeth MD PCP: Carlos ALVARADO,Dariusz Nino Status: ADM FLORIN Y Location: [place] HO700-3 Problem List (1) Fall Status: Acute (2) Hip pain Status: Acute Qualifiers: Laterality: left Qualified Code(s): M25.552 - Pain in left hip History of Present Illness Date of Admission: 07/31/18 Chief Complaint: fall with left hip pain The patient is a 82 year old M with a significant history of heart failure with reduced ejection fraction; A. fib ; pacemaker who presented because of a fall at home. Patient reported that his shoes caught up with something and she fell. He reports excruciating sharp pain on his left posterolateral hip. His pain is aggravated with moving and ameliorated with lying still. At the ED, initially he wanted to take only Tylenol but later because of the persistent and severity of his pain he change his mind and he accepted Vicodin. He was unable to go home because of the pain. He has a bruise on his left elbow. 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 Birmingham: Proximal LAD Chronic atrial fibrillation (Chronic) Supraventricular tachycardia (Chronic) Carotid bruit (Chronic) Presence of permanent cardiac pacemaker (Chronic) Permanent Pacemaker insertion, single chamber 10/17/15, [employer] Bundle branch block, right (Chronic) Hypertension (Chronic) PAF (paroxysmal atrial fibrillation) (Chronic) Osteoarthritis (Chronic) Hypothyroidism (Chronic) S/P PTCA (percutaneous transluminal coronary angioplasty) (Chronic) 09/21/2004 @ [facility] per Dr. 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 Birmingham: Proximal LAD Chronic atrial fibrillation (Chronic) I48.2 Supraventricular tachycardia (Chronic) I47.1 Carotid bruit (Chronic) R09.89 Bundle branch block, right (Chronic) I45.10 Hypertension (Chronic) I10 PAF (paroxysmal atrial fibrillation) (Chronic) I48.0 Hypothyroidism (Chronic) E03.9 Bundle branch block, left (Chronic) I44.7 Edema R60.9 Memory loss R41.3 Shortness of breath R06.02 Syncope and collapse R55 Allergies No Known Allergies Allergy (Verified 06/05/18 14:23) Home Medications: Ambulatory Orders Medication Instructions Recorded Warfarin [Coumadin] 3.5 mg PO SUSA 09/18/17 Warfarin [Coumadin] 5 mg PO MOTUWETHFR 09/18/17 atorvastatin 10 mg tablet 10 mg PO QDAY #90 tab 11/07/17 Surgical History: Surgical History (Last Reviewed 08/01/18 @ 00:55 by Fabian Elizabeth MD) History of craniotomy (Chronic) Z98.890 09/13/08 for 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 Presence of permanent cardiac pacemaker (Chronic) Z95.0 Permanent Pacemaker insertion, single chamber 10/17/15, [employer] S/P PTCA (percutaneous transluminal coronary angioplasty) (Chronic) Z98.61 09/21/2004 @ [facility] per Dr. Birmingham: Proximal LAD History of bilateral cataract extraction Z98.41, Z98.42 History of bilateral knee replacement Z96.653 06/22/2014 Surgical History: - - Hernia repair, candiotomy for 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, skin grafting. Psychiatric History: No pertinent psych hx Lives: With Family Smoking Status: Former smoker - *Family History Maternal Family History: Family History (Last Reviewed 08/01/18 @ 00:55 by Fabian Elizabeth MD) Father CAD (coronary artery disease) Myocardial infarction Sudden cardiac Mother No problems noted. Uncle CAD (coronary artery disease) Sudden cardiac Myocardial infarction Other Heart disease History Items: No pertinent history Paternal Family History: Family History (Last Reviewed 08/01/18 @ 00:55 by Fabian Elizabeth MD) Father CAD (coronary artery disease) Myocardial infarction Sudden cardiac Mother No problems noted. Uncle CAD (coronary artery disease) Sudden cardiac Myocardial infarction Other Heart disease History Items: - - father had mi at age 69 Review of Systems Constitutional: Denies: Chills, Fever, Weight Change HEENT: Denies: Head Aches, Sinus Congestion, Sinus Drainage Cardiovascular: Denies: Chest Pain, Palpitations Respiratory: Denies: Cough, Shortness of breath at rest, Sputum production Gastrointestinal: Denies: Abdominal Pain, Nausea, Vomiting Genitourinary: Denies: Dysuria Musculoskeletal: Reports: - - Left hip pain.. Denies: Joint Pain, Joint Tenderness Skin: Denies: Rash, Wounds Neurological: Denies: Numbness, Tingling, Focal weakness Psychiatric: Denies: Anxiety, Depression, Homicidal Ideations, Suicidal Ideations Hematologic/ Lymphatic: Denies: Easy Bruising, Easy Bleeding VTE Information - Inpt Only VTE Present on Admission: No VTE Mechan Device Prophylaxis: SCD's VTE Pharm Prophylaxis ordered?: No Patient Problems: Active and Suspected Problems (Last Reviewed 08/01/18 @ 00:55 by Fabian Elizabeth MD) Fall (Acute) Hip pain (Acute) - Physical Exam General: Alert, Oriented x3, Cooperative HEENT: Atraumatic, PERRLA, EOMI, Normocephalic Neck: Supple, No JVD, Negative Carotid Bruits Lungs: Clear to auscultation, Normal air movement Cardiovascular: Regular rate, No murmurs Abdomen: Bowel Sounds Present, Soft, Non Tender Extremities: No edema, Capillary Refill Less than 3 Seconds, Tenderness - Left posterior lateral hip tenderness with swelling. Skin: Skin Tear - Left elbow. Musculoskeletal: No Tenderness to Palpation of Joints or Extremities Neurological: Cranial nerves II-XII grossly intact Psych/Mental Status: Normal Affect, Appropriate Vital Signs Temp Pulse Resp BP Pulse Ox 97.8 F 119 H 21 H 111/76 97 07/31/18 20:03 07/31/18 20:24 07/31/18 20:24 07/31/18 20:24 07/31/18 20:24 Oxygen Delivery Method Room Air Weight: 83.915 kg Body Mass Index (BMI) 23.7 Assessment/Plan All Active Problems (Last Reviewed 08/01/18 @ 00:55 by Fabian Elizabeth MD) Fall (Acute) Hip pain (Acute) Syncope (Resolved) Lower GI bleed (Resolved) The patient is a 82 year old M with a significant history of heart failure with reduced ejection fraction; A. fib ; pacemaker who presented because of a fall at home; and with intractable left posterior lateral pain attributed to the fall. Fall with left hip pain. Independent review of Hip/Pelvis radiograph did not show any fracture. Likely patient with muscle strain/sprain. Vicodin as needed and cold compress as needed. Will check vitamin D level. PT and OT to work with patient for strengthening and balance training. Skin tear left at left elbow Sustained after fall. Bactroban to site. Chronic A. fib Pacemaker in place. Rate controlled Continue home metoprolol We will check PT/INR and resume Coumadin dose if needed. Patient report that he takes Coumadin 5 mg every day; and 3.5 mg on Saturday and Saturday. Last time he took his Coumadin was at 07/30 at 2018 at about 11 PM. Hypertension On admission his blood pressure was not within goal. He had a diastolic blood pressure of 93. Continue home metoprolol. Trend blood pressure and adjust blood pressure medication as necessary. Hyperlipidemia lipidemia Lipitor continued Hypothyroidism Synthroid continued DVT prophylaxis We will do SCD for now. Will check INR and resume Coumadin dosing if necessary. Code Visit OBSV E AND M: [id number] Initial observation care L3 08/01/18 0308 <Electronically signed by Fabian Elizabeth MD> Date [facility] Signature: Date (if applicable) CC: Fabian Elizabeth MD; Dariusz Gonzalez MD Signed CBC-COMPLETE BLOOD CNT Collected: 08/01/2018 Status: F Source: [place] NO DIFF 12:53 AM [facility] REPOSITORY TYPE CODE TESTS RESULT OUT OF RANGE REFERENCE UNITS LAB L100.1000 4.4-11.0 K/mm3 High WBC 14.0 LAB L100.1200 4.6-6.2 M/mm3 Normal RBC 4.69 LAB L100.1300 13.0-16.5 g/dl Normal HGB 14.0 LAB L100.1400 40-54 % Normal HCT 40.7 LAB L100.1500 80-94 fL Normal MCV 86.8 LAB L100.1600 27.0-32.0 pg Normal MCH 29.9 LAB L100.1700 32-36 g/gl Normal MCHC 34.4 LAB L100.1810 11.6-14.6 % Normal RDW CV 14.2 LAB L100.1820 35.1-43.9 fl High RDW SD 44.7 LAB L100.1900 150-450 K/mm3 Normal PLT 347 LAB L100.2000 6.2-12.0 fl Normal MPV 9.7 Performed By: #### L100.0500 #### [facility] [address] [place], [place], [address] PROTHROMBIN TIME W/INR Collected: 08/01/2018 Status: F Source: [place] 12:53 AM [facility] REPOSITORY TYPE CODE TESTS RESULT OUT OF RANGE REFERENCE UNITS LAB L300.4150 11.7-14.9 SECONDS High PROTIME 26.3 LAB L300.4200 Normal INR 2.4 Performed By: #### L300.3900 #### [facility] [address] [place], [address] BASIC METABOLIC Collected: 08/01/2018 Status: F Source: [place] PROFILE (BMP) 12:53 AM [facility] REPOSITORY TYPE CODE TESTS RESULT OUT OF RANGE REFERENCE UNITS LAB L501.0100 74-106 mg/dL High GLU 117 Result Comment: Fasting Glucose result from 100 to 125 mg/dL suggests IMPAIRED HOMEOSTASIS per A.D.A. criteria. Please note revised GLUCOSE reference range effective 2017. LAB L501.1000 7-18 mg/dL High BUN 26 LAB L501.1100 0.70-1.30 mg/dL High CREAT,SERUM 1.52 Result Comment: The validity of the calculated GFR AND GFRAA in patients over 70 years has not been determined. Clinical correlation is essential. LAB L501.1110 >60 mL/min Low EST GFR 47 Result Comment: Non- GFR Calc LAB L501.1115 >60 mL/min Low EST GFR - AA 57 Result Comment: GFR Calc LAB L501.1255 ml/min Normal Estimated CRCL 44.31 LAB L501.1300 10-20 RATIO Normal BUN/CRE 17.1 LAB L501.2200 8.5-10 mg/dL Low .1 CA 8.3 LAB L501.5300 136-14 mmol/L Normal 5 NA 139 LAB L501.5600 3.5-5. mmol/L Normal 1 K 4.1 LAB L501.5900 98-107 mmol/L Normal CL 107 LAB L501.6100 21.0-3 mmol/L Normal 2.0 CO2 24.0 LAB L501.6200 5-15 Normal GAP 8 Performed By: #### L500.2500 #### [facility] [address] [place], [address] EMERGENCY DEPARTMENT Observed: 07/31/2018 Status: F Source: [place] SUMMARY 11:19 PM [facility] REPOSITORY [facility] Medical Records Department [address] [place] [address] Emergency Department Summary 07/31/182043 MR#: [id number] Acct: [id number] Name: JULIAN JACOB Rep #: [id number] : 1935 82 From: Pepe Oshea MD PCP: Dariusz Gonzalez MD, Chi Status: ADM FLOR[place] - ER Visit Summary Date of Service: 07/31/18 Chief Complaint: [] Hip pain after trip and fall History of Present Illness: The patient is a 82 M [] of A. fib on Coumadin pacemaker his cardiovascular condition very stable as has his general health he simply states he tripped on a carpet fell landed on his left hip earlier today he has had persistent left hip pain and was brought in for evaluation he was able to walk no head neck chest or abdominal pain no shortness of breath review of systems are negative Physical Examination: [] 107/80 General, no distress resting comfortably HEENT is generally unremarkable The neck is supple no adenopathy Cardiovascular, regular rate and rhythm Lungs, clear bilateral Abdomen, soft nontender Extremities, no clubbing cyanosis or edema, he has a mild amount of left hip pain to range of motion there is no shortening or rotation, the right hip is unremarkable the backs unremarkable neurologically he is awake alert moving all 4 he did not hit his head or injure himself in any other way Neurologic, awake alert answering questions appropriately moving all 4 extremities X-ray of left hip were obtained he only wanted Tylenol for the pain Test Results: [] Emergency Department Course and Treatment: [] X-ray shows nothing acute per radiology, explained the concept of an occult injuries are comfortable with discharge home he will use a walking aid such as cane or walker take Tylenol for pain ice follow-up with his outpatient providers and return for change in symptoms Treatment Plan: [] Disposition: [] Admit pending hospitalist evaluation Impression: [] Left hip injury after fall Addendum the patient was getting ready for discharge he indicated the pain was such that he did not feel that he could walk , nursing try to walk him with a walker but he would not get out of bed to try, he only wanted to be medicated with Tylenol at this time given all the above I have asked the hospitalist to see him for further management and any other clinical studies or evaluations clinically warranted This note was generated with vidCoination software. It may contain incorrect words, spelling, and punctuation that were not noted in review of the chart prior to signing ED Disposition - Plan for ED Patient: Chief Complaint: Lower Extremity Injury Instructions: ED Contusion Hip Referrals: Dariusz Gonzalez Chi, MD [Primary Care Provider] - What to do if you have Problems For any increased pain, shortness of breath, bleeding, nausea or vomiting, chest pain, or any unexpected problems, contact your Primary Care Provider. Call [facility] ([phone]) or report to the closest Emergency Room. Call 911 if necessary. 07/31/18 2319 <Electronically signed by Pepe Oshea MD> Date Pepe Oshea MD Cosigner Signature (If Indicated): Date CC: Dariusz Gonzalez MD DISCHARGE INSTRUCTION Observed: 07/31/2018 Status: F Source: [facility] 9:45 PM [facility] REPOSITORY [facility] Medical Records Department [address] [place] [address] Discharge Instruction 07/31/182144 MR#: [id number] Acct: [id number] Name: JULIAN JACOB Rep #: [id number] : 1935 82 From: Pepe Oshea MD PCP: Dariusz Gonzalez MD, Chi Status: REG ER ED Disposition - Plan for ED Patient: Chief Complaint: Lower Extremity Injury Instructions: ED Contusion Hip Referrals: Dariusz Gonzalez Chi, MD [Primary Care Provider] - What to do if you have Problems For any increased pain, shortness of breath, bleeding, nausea or vomiting, chest pain, or any unexpected problems, contact your Primary Care Provider. Call [facility] ([phone]) or report to the closest Emergency Room. Call 911 if necessary. 07/31/182144 <Electronically signed by Pepe Oshea MD> Date Pepe Oshea MD Cosigner Signature (If Indicated): Date CC: Dariusz Gonzalez MD HIP, UNI W/ PELVIS Observed: 07/31/2018 Status: F Source: [place] 2-3 VIEWS 8:44 PM [facility] REPOSITORY [facility] Imaging Services [address] [place] [address] HIP, UNI W/ Pelvis 2-3 Views MR#: [id number] Acct: [id number] Name: JULIAN JACOB Rep #: [id number] : 1935 M 82 From: Claude Hinds MD PCP: Dariusz Gonzalez MD, Chi Status: REG ER Study: HIP, UNI W/ Pelvis 2-3 Views Date of Exam: 07/31/18 Exam# [id number] Ordering Dr: Pepe Oshea MD STUDY: X-RAY - PELVIS AND LEFT HIP REASON FOR EXAM: Male, 82 years old. Left hip pain. Fall. TECHNIQUE: 3 views of the pelvis and hip. COMPARISON: None. FINDINGS: There is a normal bowel gas pattern. Normal visualized soft tissue structures. There is diffuse demineralization of the osseous structures. There is degenerative change of the lower spine. Normal bilateral iliac wings, sacroiliac joints and visualized sacrum. Normal bilateral superior and inferior pubic rami. Normal pubic symphysis. Normal bilateral ischial tuberosities. Normal visualized femoral head. Normal acetabulum. There is mild articular joint space narrowing of the hip. There is spurring of the right femoral head with mild joint space narrowing of the right hip. No fracture seen.. RAD/HIP, UNI W/ Pelvis 2-3 Views IMPRESSION: No fracture seen. Electronically Signed: Claude Hinds MD at 21:42 EST , Service support , CC: MD Yenifer Oshea; Dariusz Gonzalez MD Retail Team Leader: Signed PROTHROMBIN TIME W/INR Collected: 06/24/2018 Status: F Source: [place] 2:06 PM [facility] REPOSITORY TYPE CODE TESTS RESULT OUT OF RANGE REFERENCE UNITS LAB L300.4150 11.7-14.9 SECONDS High PROTIME 25.8 LAB L300.4200 Normal INR 2.3 Performed By: #### L300.3900 #### [facility] [address] [place], [place], [address] PROTHROMBIN TIME W/INR Collected: 06/10/2018 Status: F Source: [place] 2:19 PM [facility] REPOSITORY TYPE CODE TESTS RESULT OUT OF RANGE REFERENCE UNITS LAB L300.4150 11.7-14.9 SECONDS High PROTIME 23.5 LAB L300.4200 Normal INR 2.1 Performed By: #### L300.3900 #### [facility] [address] [place], [place], [address] PACEMAKER CHECK Observed: 06/06/2018 Status: F Source: [place] 6:58 AM [facility] REPOSITORY [facility] [address] [place] [address] Pacemaker Check Date of Service: 06/05/18 1432 MR#: [id number] Acct: [id number] Name: JULIAN JACOB Rep #: [id number] : 1935 From: Emiliana Joseph Age/Sex: 82/M [place] [facility] [place]: Signed Billing Codes PM Device Codes: PM Dev Prog Jane, Single 06/05/18 1434 <Electronically signed by Emiliana Joseph > Date Emiliana Joseph 06/06/18 0658<Electronically signed by Aristeo Lopez MD> Cosigner Signature: Date (if applicable) Aristeo Lopez MD CC: CARDIOLOGY VISIT Observed: 06/05/2018 Status: F Source: [place] REPORT 2:48 PM [facility] REPOSITORY [facility] [address] [place] [address] OFFICE VISIT Date of Service: 06/05/18 MR#: [id number] Acct: [id number] Name: JULIAN JACOB Rep #: [id number] : 1935 Provider: Aristeo Lopez MD Age/Sex: 82/M [place] [facility] [place] Status: Signed HPI HPI Chief Complaint: Follow up visit Details: JULIAN JACOB, is a 82 M who presents to the office today for a follow-up visit. As you know,He has a history of coronary artery disease with angioplasty and stenting of his LAD in 2004. He also has a history of atrial fibrillation post ablation, ventricular tachycardia, hypertension and hyperlipidemia. 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 He has not had any chest pain but says that he has had some fatigue. As you know he had had a syncopal hospital previously and it was not due to a pacemaker problem. He is also noted to be occasionally dizzy especially in the morning and he says it lasts a while. He denies any shortness of breath except with exertion no paroxysmal nocturnal dyspnea and pedal edema. His pacemaker was interrogated today. His physical exam demonstrates clear lung shepard irregular regular heart rate and no pedal edema. Intake Vital Signs06/05/18 Height 6 ft 2 in 06/05/18 Weight: 197 lb 06/05/18 Body Mass Index (BMI) 25.2 06/05/18 Blood Pressure 118/70 06/05/18 Blood Pressure Location Lt brachial Intake Visit Reasons: 6 M FU; Marielle @ 2p (we r/s from 05-29) Bottle Tester Required: No Accompanied by: none Is patient in pain?: No Allergies No Known Allergies Allergy (Verified 06/05/18 14:23) Medications Warfarin [Coumadin] 3 mg PO SUMOTU 09/18/17 [History Confirmed 06/05/18] Warfarin [Coumadin] 5 mg PO WETHFRSA 09/18/17 [History Confirmed 06/05/18] atorvastatin 10 mg tablet 10 mg PO QDAY #90 tab 11/07/17 [Rx Confirmed 06/05/18] levothyroxine 75 mcg capsule 75 mcg PO QDAY cap 11/07/17 [History Confirmed 06/05/18] warfarin 1 mg tablet 1 mg PO .COMPLEX #30 tab 02/10/18 [Rx Confirmed 06/05/18] warfarin 2.5 mg tablet 2.5 mg PO .COMPLEX #30 tab 02/10/18 [Rx Confirmed 06/05/18] carvedilol 25 mg tablet 12.5 mg PO BID #180 tab 03/10/18 [Rx Confirmed 06/05/18] metoprolol succinate ER 50 mg tablet,extended release 24 hr 50 mg PO DAILY #90 tab 06/05/18 [Rx Confirmed 06/05/18] [facility] Medical History Chronic ectopic atrial tachycardia (Chronic) History of syncope (Chronic) History of 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 (Chronic) shelter current use of anticoagulant (Chronic) Premature ventricular contractions (Chronic) Hyperlipidemia (Chronic) Atherosclerotic heart disease of [place] coronary artery without angina pectoris (Chronic) Chronic atrial fibrillation (Chronic) Supraventricular tachycardia (Chronic) Carotid bruit (Chronic) Bundle branch block, right (Chronic) Hypertension (Chronic) PAF (paroxysmal atrial fibrillation) (Chronic) Hypothyroidism (Chronic) Bundle branch block, left (Chronic) Edema (Inactive) Memory loss (Inactive) Shortness of breath (Inactive) Syncope and collapse (Inactive) Surgical History History of craniotomy (Chronic) Presence of permanent cardiac pacemaker (Chronic) S/P PTCA (percutaneous transluminal coronary angioplasty) (Chronic) History of bilateral cataract extraction (Chronic) History of bilateral knee replacement (Chronic) Family History Father , age 59 CAD (coronary artery disease) Myocardial infarction Sudden cardiac Mother , Age 84, stopped eating d/t depression No problems noted. Uncle , age late 40's to early 50's. CAD (coronary artery disease) Sudden cardiac Myocardial infarction Other Heart disease Social History Smoking Status: Former smoker quit date: 06/19/68 ROS Const Const: Negative for fatigue, weakness, night sweats, excessive sweating, frequent falls, headache(s) or daytime sleepiness Eyes Eyes: Negative for loss of peripheral vision, transient loss of vision, blind spots, double vision or blurry vision ENT ENT: Positive for dizziness (past two months has increased); negative for headache(s), balance problems, Nosebleed/epistaxis, tongue swelling or lip swelling Cardio Chest Pain: No Palpitations: No Edema: None Muscle aches with walking: None Resp Respiratory: Negative for SOB at rest, SOB orthopnea\SOB lying down, Cough, paroxysmal nocturnal dyspnea or SOB with activity GI GI: Negative nausea, vomiting, heartburn, black,tarry stools or bright, red blood in stools : Negative for hematuria Musc Musc: Negative for balance problems, muscle aches/ myalgia, muscle weakness or joint pain Skin Skin: Negative non-healing lesions, unusual bruising or rash Neuro Neuro: Positive for dizziness (past two months has increased), lightheadedness and lack of coordination (balance problem); negative for weakness, frequent falls, headache(s), double vision, orthostatic symptoms or blurry vision [place] Hematologic/Lymphatic: Negative for easy bruising or easy bleeding Endo Endo: Negative for fatigue, excessive sweating, cold intolerance, heat intolerance, increased thirst/drinking or hair loss Psych Psych: Negative for anxiety or depression Allergy Allergy/Immunology: Negative for throat swelling, Negative for tongue swelling, Negative for hives, Negative for rash, Negative for lip swelling Cardiology Exam Const Appearance: cooperative, healthy appearing, well developed, well groomed and no acute distress Nutritional Appearance: well nourished and average body habitus Orientation: alert, awake and oriented x3 Head Head: normal to inspection, normocephalic and atraumatic Ears: hearing grossly normal bilaterally and external ears normal Nose: external nose normal, nasal mucous membranes and turbinates normal, nares normal, septum normal, no nasal discharge Face and Sinus: face symmetric Mouth: oral mucosae normal, tongue normal, oropharynx normal and moist mucous membranes Teeth and gingiva: dentition normal Throat: posterior oropharynx normal, tonsils normal and uvula midline Eyes General: appearance normal, both eyes and all related structures Eyelids: eyelids normal Conjunctivae: conjunctivae normal Pupils: PERRL, normal by confrontation and accommodation normal EOM: EOM intact bilaterally Neck Neck: normal visual inspection, trachea midline and no JVD JVD: +5 Carotids: normal carotid upstroke and bounding pulses Chest Chest inspection: normal inspection of the chest, symmetric chest movement and normal respiratory effort Auscultation: Bilateral: Clear to Auscultation Cardio Palpation: normal PMI Rhythm: irregular rhythm Heart sounds: S1 normal and S2 normal GI GI: normal to inspection, soft, no hepatosplenomegaly and bowel sounds present Neuro General: alert, awake, oriented x3, no focal sensory deficit, gait normal and moves all extremities Skin Skin: no rashes or lesions noted Extremities Pulses: Normal: Right Femoral Pulse, Left Femoral Pulse, Right Dorsalis Pedis Pulse, Left Dorsalis Pedis Pulse, Right Posterior Tibial Pulse, Left Posterior Tibial Pulse, Right Radial Pulse, Left Radial Pulse Lower Extremity Edema: None: Bilateral Musculoskel Musculoskeletal: No joint tenderness Psych Psychological: normal affect Assessment AND Plan 1. Chronic atrial fibrillation I48.2 Plan He does have evidence of chronic persistent atrial fibrillation with atrial fibrillation rates between 9118. I think we should pursue more aggressive rate control as hopefully this would improve his fatigue as well as the dizziness. I like to discontinue his carvedilol and put him on Toprol-XL 50 mg once a day. He will continue on his Coumadin. 2. Essential hypertension I10 Plan His blood pressure appears to be under good control at this particular time no other major changes will be made. 3. Presence of permanent cardiac pacemaker Z95.0 Permanent Pacemaker insertion, single chamber 10/17/15, [employer] Plan He is status post permanent pacemaker implantation his pacemaker was interrogated today the battery longevity is over 7 years and he is V paced less than 1% of the time. Perhaps increasing his beta-gualberto dose would allow him to be V paced more. 4. S/P PTCA (percutaneous transluminal coronary angioplasty) Z98.61 09/21/2004 @ [facility] per Dr. [place]: Proximal LAD Plan He continues to do well with regard to the above. He underwent stress testing as you remember in March 2018 with no evidence of ischemia noted. The stress test suggested that he had a dilated cardiomyopathy with an EF of 34% I recommend we obtain an echocardiogram to assess this. 5. Hyperlipidemia E78.5 Plan He does have a history of hyperlipidemia and will continue with current risk factor modification. He remains on low-dose atorvastatin and has actually also lost some weight in this regard. Thank you for allowing me to participate in the care of your patient. Please don't hesitate to call if any issues arise Plan Detail Other Orders Orders: Other Medications New: Follow Up 4 Months (mmm) Coding Level of Care Code Off vis,est,level 4 Diagnoses Chronic atrial fibrillation I48.2 Essential hypertension I10 Hypertension type: essential hypertension Presence of permanent cardiac pacemaker Z95.0 S/P PTCA (percutaneous transluminal coronary angioplasty) Z98.61 Hyperlipidemia E78.5 Coding Level of Care Code Off vis,est,level 4 Diagnoses Chronic atrial fibrillation I48.2 Essential hypertension I10 Hypertension type: essential hypertension Presence of permanent cardiac pacemaker Z95.0 S/P PTCA (percutaneous transluminal coronary angioplasty) Z98.61 Hyperlipidemia E78.5 06/05/18 1448 <Electronically signed by Aristeo Lopez MD> Date Aristeo Lopez MD Cosigner Signature: Date (if applicable) CC: Dariusz Gonzalez MD PROTHROMBIN TIME W/INR Collected: 05/27/2018 Status: F Source: [place] 11:28 AM [facility] REPOSITORY TYPE CODE TESTS RESULT OUT OF RANGE REFERENCE UNITS LAB L300.4150 11.7-14.9 SECONDS High PROTIME 21.0 LAB L300.4200 Normal INR 1.8 Performed By: #### L300.3900 #### [facility] [address] [place] [address] [place], [address] STRESS REPORT Observed: 03/31/2018 Status: F Source: [place] 4:07 PM [facility] REPOSITORY [facility] Cardiovascular Services [address] [place], [place] [address] [place] [address] MR#: [id number] Acct: [id number] Name: JULIAN JACOB Rep #: [id number] : 1935 82 From: Aristeo Lopez MD Primary Care: Carlos ALVARADO,Dariusz Nino Status: REG CLI Ordering Dr: Raya: Eric Mcnally Stress Test Report Pharmacologic myocardial perfusion stress test. 82-year-old man with a history of atrial fibrillation. Stress protocol: Resting EKG demonstrates atrial fibrillation with a rate of 93 bpm normal intervals and noted resting blood pressure is 142/88 mmHg. 0.4 mg regadenoson was infused per usual protocol followed by rapid intravenous saline flush injection continuous EKG monitoring was performed. Patient maintained atrial fibrillation throughout the recording. The maximum heart rate attained was 111 bpm which was 79% of maximum predicted heart rate the maximum workload was 1 metabolic equivalent. At rest there were no ST or T-wave changes noted to suggest abnormal flow reserve at peak infusion no ST or T-wave changes were noted to suggest abnormal flow reserve. Resting blood pressure is 142/88 with a final blood pressure 112/76. Myocardial perfusion protocol. 11.9 mCi of technetium 99m sestamibi was injected at rest. 0.4 mg regadenoson was infused per usual protocol peak infusion 33.8 mCi of technetium 99m sestamibi was injected stress images were obtained stress and rest images were reconstructed and compared in the short axis vertical long and horizontal long axis. Gated images were also obtained. Perfusion SPECT analysis: Review of the stress images demonstrate normal uptake of tracer noted in all areas of the myocardium. The resting images similarly demonstrate normal uptake of tracer noted in all areas of the myocardium. No areas of reversibility are noted suggest ischemia. Gated SPECT analysis: The gated ejection fraction demonstrates an ejection fraction of 34%. Conclusion: Mildly dilated cardiomyopathy. Myocardial perfusion stress test with no evidence of ischemia. Persistent atrial fibrillation present. 03/31/181606 <Electronically signed by Aristeo Lopez MD> Date Aristeo Lopez MD CC: Saloni Bowie; Dariusz Gonzalez MD Date Dictated: 03/31/181600 Date Transcribed: 03/31/181600 Retail Team Leader: [place] Signed CARDIOLOGY VISIT Observed: 03/19/2018 Status: F Source: [place] REPORT 4:33 PM [facility] REPOSITORY [facility] [address] [place] [address] OFFICE VISIT Date of Service: 03/10/18 MR#: [id number] Acct: [id number] Name: JULIAN JACOB Rep #: [id number] : 1935 Provider: Saloni Bowie Age/Sex: 82/M [place] [facility] [place]: Signed HPI HPI Details: JULIAN JACOB, is a 82 M who presents to the office today for an urgent appointment for dizziness and lightheadedness over the last 2 weeks and a syncopal event. He has a history of coronary artery disease with angioplasty and stenting of his LAD in 2004. He also has a history of atrial fibrillation post ablation, ventricular tachycardia, hypertension and hyperlipidemia. He had a pacemaker placed in 2015 for alternating bundle branch block. Pt sts that yesterday he was making breakfast and awoke up on the floor. He sts that over the last 2 weeks he has had positional dizziness frequently. He has not had any chest pain/heaviness. He does have achiness in his his back that radiates around but this occurs more so when he is bending over. He has not had any worsening SOB. He does not have any palpitations that he is aware of. He does not have an Recent pacemaker interrogation demonstrated episodes of nonsustained ventricular tachycardia however it appeared that these episodes were more atrial fibrillation with RVR. This is been similar to his episodes in the past. Intake Vital Signs03/10/18 Height 6 ft 2 in 03/10/18 Weight: 195 lb 03/10/18 Body Mass Index (BMI) 25.0 03/10/18 Blood Pressure 100/60 Intake Visit Reasons: Syncope Bottle Tester Required: No Is patient in pain?: Yes Allergies No Known Allergies Allergy (Verified 03/10/18 10:09) Medications Warfarin [Coumadin] 3 mg PO SUMOTU 09/18/17 [History Confirmed 03/10/18] Warfarin [Coumadin] 5 mg PO WETHFRSA 09/18/17 [History Confirmed 03/10/18] atorvastatin 10 mg tablet 10 mg PO QDAY #90 tab 11/07/17 [Rx Confirmed 03/10/18] levothyroxine 75 mcg capsule 75 mcg PO QDAY cap 11/07/17 [History Confirmed 03/10/18] warfarin 1 mg tablet 1 mg PO .COMPLEX #30 tab 02/10/18 [Rx Confirmed 03/10/18] warfarin 2.5 mg tablet 2.5 mg PO .COMPLEX #30 tab 02/10/18 [Rx Confirmed 03/10/18] carvedilol 25 mg tablet 12.5 mg PO BID #180 tab 03/10/18 [Rx Confirmed 03/10/18] [facility] Medical History Chronic ectopic atrial tachycardia (Chronic) History of syncope (Chronic) History of 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 (Chronic) 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) Premature ventricular contractions (Chronic) Hyperlipidemia (Chronic) Atherosclerotic heart disease of [place] coronary artery without angina pectoris (Chronic) Chronic atrial fibrillation (Chronic) Supraventricular tachycardia (Chronic) Carotid bruit (Chronic) Bundle branch block, right (Chronic) Hypertension (Chronic) PAF (paroxysmal atrial fibrillation) (Chronic) Hypothyroidism (Chronic) Bundle branch block, left (Chronic) Edema (Inactive) Memory loss (Inactive) Shortness of breath (Inactive) Syncope and collapse (Inactive) Surgical History History of craniotomy (Chronic) Presence of permanent cardiac pacemaker (Chronic) S/P PTCA (percutaneous transluminal coronary angioplasty) (Chronic) History of bilateral cataract extraction (Chronic) History of bilateral knee replacement (Chronic) Family History Father , age 59 CAD (coronary artery disease) Myocardial infarction Sudden cardiac Mother , Age 84, stopped eating d/t depression No problems noted. Uncle , age late 40's to early 50's. CAD (coronary artery disease) Sudden cardiac Myocardial infarction Other Heart disease Social History Smoking Status: Former smoker quit date: 06/19/68 ROS Const Const: Positive for weakness; negative for fatigue, fever(s) or headache(s) Eyes Eyes: Negative for blind spots, loss of peripheral vision or transient loss of vision ENT ENT: Positive for dizziness; negative for headache(s), tinnitus or Nosebleed/epistaxis Cardio Chest Pain: No Palpitations: No Edema: None Muscle aches with walking: None Resp Respiratory: Negative for SOB with activity, SOB at rest, SOB orthopnea\SOB lying down or Cough GI GI: Negative nausea, vomiting, heartburn or vomiting blood/hematemesis : Negative for hematuria Musc Musc: Negative for muscle aches/ myalgia Neuro Neuro: Positive for weakness, dizziness, near syncope, syncope and lightheadedness; negative for headache(s) or orthostatic symptoms [place] Hematologic/Lymphatic: Negative for easy bleeding Endo Endo: Negative for fatigue Cardiology Exam Const Appearance: cooperative, no acute distress and well developed Orientation: alert, awake and oriented x3 Head Head: normocephalic and atraumatic Mouth: moist mucous membranes Eyes General: appearance normal, both eyes and all related structures Conjunctivae: conjunctivae normal Pupils: PERRL EOM: EOM intact bilaterally Neck Neck: normal visual inspection, no lymphadenopathy and no JVD Carotids: Negative bruit Neck Mass: Negative Neck mass Chest Chest inspection: normal inspection of the chest, symmetric chest movement and Pacemaker/ICD Yes left pectoral incision Auscultation: Bilateral: Clear to Auscultation Cardio Palpation: normal PMI Rate: regular rate Rhythm: regular rhythm Heart sounds: S1 normal and S2 normal; negative rub, gallop or murmur GI GI: normal to inspection, soft, no hepatosplenomegaly and bowel sounds present; negative tender Neuro General: alert, awake, oriented x3, CN's II-XI intact bilaterally and moves all extremities Extremities Pulses: Normal: Left Posterior Tibial Pulse, Right Radial Pulse, Left Radial Pulse, Diminished: Right Posterior Tibial Pulse Lower Extremity Edema: None: Bilateral, Color Changes: Bilateral Psych Psychological: normal affect Supplemental Info Echocardiogram in 2015 demonstrated Left ventricular systolic function is normal. The estimated ejection fraction is 60 %. The left atrium is mildly enlarged. Trivial mitral valve insufficiency. Mild tricuspid valve insufficiency. Aortic sclerosis, no stenosis. Trivial pulmonic valve insufficiency. Right ventricular systolic pressure estimated to be 35 mmHg. Assessment AND Plan 1. Syncope, unspecified syncope type R55 Plan - JESSEE Mckee With patient's positional dizziness and low blood pressure will have him decrease his Coreg to 12.5 mg twice a day, will need to consider his atrial fibrillation with RVR as he may require an increase in his beta-gualberto or other additional rate limiting medication. We will also obtain a stress test to evaluate for underlying ischemia in addition to a carotid ultrasound. We have been monitoring his rhythm through his pacemaker however may consider obtaining a Holter monitor if all other tests are normal. Patient Instructions - JESSEE Mckee Decrease your Coreg to 12.5 mg twice a day Orders Orders: 2. Atherosclerosis of [place] coronary artery of [place] heart without angina pectoris I25.10 PTCA and FORD 09/21/2004 @ [facility] per Dr. Birmingham: Proximal LAD Plan - JESSEE Mckee Will obtain a pharmacologic nuclear stress test to evaluate for underlying ischemia. He did have an episode of syncope. He also does have discomfort in his back that does radiate around to his shoulders Orders Orders: 3. Chronic atrial fibrillation I48.2 Plan - JESSEE Mckee As mentioned above I was concerned about his positional dizziness and low blood pressure readings. We did decrease his Coreg however he does have a history of atrial fib with RVR may need to consider additional rate limiting medication. Orders Orders: 4. Presence of permanent cardiac pacemaker Z95.0 Permanent Pacemaker insertion, single chamber 10/17/15, [employer] Essentio Plan - JESSEE Mckee Pacemaker is functioning appropriately. We will continue to monitor at routine scheduled pacemaker interrogations. 5. Essential hypertension I10 Plan - JESSEE Mckee Patient's blood pressure is on the low side, will decrease his Coreg to 12.5 mg daily. He was also advised of adequate fluid hydration as this could also be contributing to his low blood pressure readings. Orders Orders: Plan Detail Other Orders Orders: Other Medications Changed: Additional Comments - JESSEE Mckee The above patient was discussed with Dr. Lopez, he agrees with plan of care. Thank you for allowing us to participate in patient's plan of care, if you have any questions please do not hesitate to call. This note was generated using a voice recognition system and there may be incorrect words, spelling or punctuation errors that were not noted when reviewing the office note prior to saving. Follow Up 03/10/18 (based on testing) Coding Level of Care Code Off vis,est,level 4 Diagnoses Syncope, unspecified syncope type R55 Syncope type: unspecified Atherosclerosis of [place] coronary artery of [place] heart without angina pectoris I25.10 [place] vs. 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 transplanted heart: [place] heart Chronic atrial fibrillation I48.2 Presence of permanent cardiac pacemaker Z95.0 Essential hypertension I10 Hypertension type: essential hypertension 03/10/18 1337 <Electronically signed by Saloni HOOKS> Date Saloni HOOKS 03/19/18 1633<Electronically signed by Aristeo Lopez MD> Cosigner Signature: Date (if applicable) Aristeo Lopez MD CC: CAROTID DUPLEX Observed: 03/15/2018 Status: F Source: [facility] ULTRASOUND 3:03 PM [facility] REPOSITORY [facility] Cardiovascular Services [address] [place] [id number] Carotid Duplex Ultrasound 03/13/18 [facility] MR#: [id number] Acct: [id number] Name: JULIAN JACOB Rep #: [id number] : 1935 82 From: Prosper Mauro MD Attending Dr: Saloni Bowie Status: REG CLI Ordering Dr: Saloni Bowie Date: 03/13/18 Location: [facility] Sex: M C Admitted: Reason For Study: syncope Rt. Velocities/BP Lt. Velocities/BP Prox CCA 36.9/17.0 cm/sec. Prox CCA 45.6/18.1 cm/sec. Mid CCA 38.1/15.8 cm/sec. Mid CCA 41.6/17.7 cm/sec. Dist CCA 35.8/15.3 cm/sec. Dist CCA 44.0/22.4 cm/sec. Prox ICA 55.4/24.4 cm/sec. Prox ICA 29.9/13.0 cm/sec. Mid ICA 33.8/18.1 cm/sec. Mid ICA 35.7/14.5 cm/sec. Dist ICA 67.1/36.2 cm/sec. Dist ICA 53.2/27.8 cm/sec. Rt. ICA/CCA = 1.8. Lt. ICA/CCA = 1.3. Prox ECA 56.6/17.3 cm/sec. Prox ECA 51.9/12.6 cm/sec. Rt. Vert. 25.7/11.2 cm/sec. Lt. Vert. 25.5/10.6 cm/sec. Right Extracranial There is heterogeneous, smooth atherosclerotic plaque noted in the right common carotid artery. There is heterogeneous, irregular atherosclerotic plaque noted in the right internal carotid artery. The atherosclerotic plaque causes acoustic shadowing. There is heterogeneous, irregular atherosclerotic plaque noted in the right external carotid artery. Antegrade flow is noted in the right vertebral artery. Left Extracranial There is heterogeneous, irregular atherosclerotic plaque noted in the left common carotid artery. There is heterogeneous, irregular atherosclerotic plaque noted in the left internal carotid artery. The left internal carotid artery is very tortuous. There is heterogeneous, irregular atherosclerotic plaque noted in the left external carotid artery. Antegrade flow is noted in the left vertebral artery. Procedure Carotid Duplex 74165. The exam was diagnostic. Exam performed in department. Interpretation Summary Mild (<50%) stenosis right extracranial internal carotid. Acoustic shadowing is noted in the proximal right internal carotid artery, obscuring visualization of the arterial lumen. As a result, the degree of stenosis may exceed that estimated by velocity criteria alone. In this regard, clinical correlation is advised. Mild (<50%) stenosis left extracranial internal carotid. Flow within the vertebral arteries is antegrade bilaterally. Ordering Physician: Saloni Bowie Performed By: Mor Mauricio, RVT 03/15/18 1502 Date Prosper Mauro MD CC: Saloni Bowie; Dariusz Gonzalez MD Date Dictated: 03/13/18 1024 Date Transcribed: 03/15/18 1502 Retail Team Leader: Signed CBC W/DIFF, AUTOMATED Collected: 03/11/2018 Status: F Source: [place] 4:10 PM [facility] REPOSITORY TYPE CODE TESTS RESULT OUT OF RANGE REFERENCE UNITS LAB L100.1000 4.4-11.0 K/mm3 Normal WBC 8.7 LAB L100.1200 4.6-6.2 M/mm3 Normal RBC 5.17 LAB L100.1300 13.0-16.5 g/dl Normal HGB 13.6 LAB L100.1400 40-54 % Normal HCT 41.8 LAB L100.1500 80-94 fL Normal MCV 80.9 LAB L100.1600 27.0-32.0 pg Low MCH 26.3 LAB L100.1700 32-36 g/gl Normal MCHC 32.5 LAB L100.1810 11.6-14.6 % High RDW CV 17.4 LAB L100.1820 35.1-43.9 fl High RDW SD 51.3 LAB L100.1900 150-450 K/mm3 Normal PLT 245 LAB L100.2000 6.2-12.0 fl Normal MPV 10.4 LAB L100.2100 47-70 % Normal NEUT% 66.7 LAB L100.2200 19-41 % Normal LY% 20.3 LAB L100.2300 0-10 % Normal MONO% 7.7 LAB L100.2400 0-5 % Normal EO% 4.9 LAB L100.2500 0-1 % Normal BASO% 0.3 LAB L100.2550 0.0-0.9 % Normal IM GRAN % 0.100 Result Comment: IG% - Immature Granulocytes (promyelocytes, myelocytes and metamyelocytes) > 1% indicates that a LEFT SHIFT is Present. LAB L100.2620 2.0-7.7 X10 3/uL Normal Absolute Neut 5.8 LAB L100.2720 0.83-4.51 X10 3/ul Normal Absolute Lymph 1.77 Performed By: #### L100.0100, L101.9900 #### [facility] [address] [place], [address] ERYTHROCYTE SED RATE Collected: 03/11/2018 Status: F Source: [facility] 4:10 PM [facility] REPOSITORY TYPE CODE TESTS RESULT OUT OF RANGE REFERENCE UNITS LAB L102.0000 0-20 mm/hr Normal SED RATE 7 Performed By: #### L100.0100, L101.9900 #### [facility] [address] [facility] [place], [address] CRP Collected: 03/11/2018 Status: F Source: [facility] 4:10 PM [facility] REPOSITORY TYPE CODE TESTS RESULT OUT OF RANGE REFERENCE UNITS LAB L501.6710 0.0-3.0 mg/L High 24.70 C-REACTIVE PROT Result Comment: C-Reactive Protein (CRP) provides useful information for the diagnosis, therapy and monitoring of inflammatory processes and associated diseases. For the evaluation of Relative Risk for Cardiovascular Disease, a High Sensitivity CRP (HSCRP) should be ordered. Performed By: #### L501.6710 #### [facility] [address] [facility] [place], [place], [address] CBC W/DIFF, AUTOMATED Collected: 03/10/2018 Status: F Source: [facility] 11:14 AM [facility] REPOSITORY TYPE CODE TESTS RESULT OUT OF RANGE REFERENCE UNITS LAB L100.1000 4.4-11.0 K/mm3 Normal WBC 10.3 LAB L100.1200 4.6-6.2 M/mm3 Normal RBC 5.57 LAB L100.1300 13.0-16.5 g/dl Normal HGB 14.9 LAB L100.1400 40-54 % Normal HCT 44.1 LAB L100.1500 80-94 fL Low MCV 79.2 LAB L100.1600 27.0-32.0 pg Low MCH 26.8 LAB L100.1700 32-36 g/gl Normal MCHC 33.8 LAB L100.1810 11.6-14.6 % High RDW CV 17.7 LAB L100.1820 35.1-43.9 fl High RDW SD 50.4 LAB L100.1900 150-450 K/mm3 Normal PLT 260 LAB L100.2000 6.2-12.0 fl Normal MPV 10.5 LAB L100.2100 47-70 % High NEUT% 72.2 LAB L100.2200 19-41 % Low LY% 14.1 LAB L100.2300 0-10 % Normal MONO% 8.5 LAB L100.2400 0-5 % Normal EO% 4.3 LAB L100.2500 0-1 % Normal BASO% 0.6 LAB L100.2550 0.0-0.9 % Normal IM GRAN % 0.300 Result Comment: IG% - Immature Granulocytes (promyelocytes, myelocytes and metamyelocytes) > 1% indicates that a LEFT SHIFT is Present. LAB L100.2620 2.0-7.7 X10 3/uL Normal Absolute Neut 7.5 LAB L100.2720 0.83-4.51 X10 3/ul Normal Absolute Lymph 1.45 Performed By: #### L100.0100, L500.2500, L501.9520 #### [facility] [address] [place], [address] BASIC METABOLIC Collected: 03/10/2018 Status: F Source: [facility] PROFILE (BMP) 11:14 AM [facility] REPOSITORY TYPE CODE TESTS RESULT OUT OF RANGE REFERENCE UNITS LAB L501.0100 74-106 mg/dL Normal GLU 95 Result Comment: Please note revised GLUCOSE reference range effective 2017. LAB L501.1000 7-18 mg/dL High BUN 24 LAB L501.1100 0.70-1.30 mg/dL High CREAT,SERUM 1.41 Result Comment: The validity of the calculated GFR AND GFRAA in patients over 70 years has not been determined. Clinical correlation is essential. LAB L501.1110 >60 mL/min Low EST GFR 51 Result Comment: Non- GFR Calc LAB L501.1115 >60 mL/min Normal EST GFR - AA 62 Result Comment: GFR Calc LAB L501.1300 10-20 RATIO Normal BUN/CRE 17.0 LAB L501.2200 8.5-10.1 mg/dL CA Normal 8.8 LAB L501.5300 136-145 mmol/L NA Normal 140 LAB L501.5600 3.5-5.1 mmol/L K Normal 4.5 LAB L501.5900 98-107 mmol/L CL Normal 105 LAB L501.6100 21.0-32.0 mmol/L Normal CO2 27.0 LAB L501.6200 5-15 Normal GAP 8 Performed By: #### L100.0100, L500.2500, L501.9520 #### [facility] [address] [place], [address] THYROID STIM HORMONE Collected: 03/10/2018 Status: F Source: [place] (TSH) 11:14 AM [facility] REPOSITORY TYPE CODE TESTS RESULT OUT OF RANGE REFERENCE UNITS LAB L501.9520 0.358-3.74 uIU/mL Normal TSH 1.56 Performed By: #### L100.0100, L500.2500, L501.9520 #### [facility] [address] [facility] [address] [place], [address] PROTHROMBIN TIME W/INR Collected: 03/10/2018 Status: F Source: [facility] 11:14 AM [facility] REPOSITORY Order Comment: Comments: Standing order valid from: 01/15/18 to 01/15/19 Comments: Standing order valid from: 01/15/18 to 01/15/19 TYPE CODE TESTS RESULT OUT OF RANGE REFERENCE UNITS LAB L300.4150 11.7-14.9 SECONDS High PROTIME 28.5 LAB L300.4200 Normal INR 2.7 Performed By: #### L300.3900 #### [facility] [address] [place], [address] PACEMAKER CHECK Observed: 02/25/2018 Status: F Source: [place] 9:24 AM [facility] REPOSITORY [facility] [place] [address] Pacemaker Check Date of Service: 02/24/18 1752 MR#: [id number] Acct: [id number] Name: JULIAN JACOB Rep #: [id number] : 1935 From: Emiliana Joseph Age/Sex: 82/M [place] [facility] [place]: Signed Billing Codes PM Device Codes: PM Dev Interrogate (Remot 02/24/18 175 <Electronically signed by Emiliana Joseph > Date Emiliana Joseph 02/25/18 0924<Electronically signed by Aristeo Lopez MD> Cosigner Signature: Date (if applicable) Aristeo Lopez MD CC: PROTHROMBIN TIME W/INR Collected: 01/10/2018 Status: F Source: [place] 10:57 AM [facility] REPOSITORY TYPE CODE TESTS RESULT OUT OF RANGE REFERENCE UNITS LAB L300.4150 11.7-14.9 SECONDS High PROTIME 23.7 LAB L300.4200 Normal INR 2.1 Performed By: #### L300.3900 #### [facility] [address] [place], [place], [address] PROTHROMBIN TIME W/INR Collected: 12/09/2017 Status: F Source: [place] 10:41 AM [facility] REPOSITORY TYPE CODE TESTS RESULT OUT OF RANGE REFERENCE UNITS LAB L300.4150 11.7-14.9 SECONDS High PROTIME 24.2 LAB L300.4200 Normal INR 2.2 Performed By: #### L300.3900 #### [facility] [address] [facility] [address] [place], [place], [address] PACEMAKER CHECK Observed: 12/03/2017 Status: F Source: [place] 11:02 AM [facility] REPOSITORY [facility] [address] [place] [address] Pacemaker Check Date of Service: 11/21/17 1155 MR#: [id number] Acct: [id number] Name: JULIAN JACOB Rep #: [id number] : 1935 From: Emiliana Joseph Age/Sex: 82/M Location[place] [facility] Status: Signed Comments Summary Comments: Remote Single chamber Pacemaker Evaluation: Remote interrogation shows 1299 NSVT episodes since 05/09/17. Stored e-grams available for review show atrial fib with RVR up to 168 bpm. Presenting rhythm shows atrial fib 76 to 100 bpm. Battery longevity approx 7.5 yrs. Lead impedance, sensing and auto pace/sense threshold remain stable. Normal remote PPM function. Pt notified remote transmission received and next f/u appt scheduled for in 3 mos. Device Device Date Interviewed: 11/21/17 Follow-up Location: remote Interview Reason: scheduled follow up Dimensional Integration Engineer: [employer] Name: Essentio SR Model: L100 Serial #: [id number] Implant Date: 10/17/15 Year(s): 2 Implant Physician: Dr. Aristeo Lopez Patient Characteristics Atrial Indication: Atrial tachycardia, sick sinus syndrome Patient Substrate: Syncope Ejection fraction %: 60 to 64 (01/07/2015) By: Echo Underlying rhythm: Atrial fibrillation Pacemaker Dependent: No Device Characteristics Device: Single Chamber Type: Pacemaker Remote Follow-Up: [employer] Lead #1 Dimensional Integration Engineer Lead 1: Guidant Model Lead 1: [id number] Serial# Lead 1: [id number] Date Implanted Lead 1: 10/17/15 Position Lead 1: RV Diagnostics Pacing % RV Pacin Arrhythmias Non-Sust Episodes: 1,299 Measurements Battery Magnet Rate (bmp): 100 Battery Status: RAFAEL Predicted Remaining Longevity (months or years): 7.5 years RV Measurements Signal Amplitude (mV): 24.1 Impedance (Ohms): 709 Threshold Voltage: 0.7 @ PW(ms): 0.4 Chris Settings Bradycardia Mode and Timing Settings Pacemaker Mode: VVI Base Rate: 60 bpm Bradycardia Output and Sensitivity Settings Right Ventricle: 0.4 msec, Automatic1.2 volts. Billing Codes PM Device Codes: PM Dev Interrogate (Remot Assessment AND Plan Problems 1. Presence of permanent cardiac pacemaker Z95.0 Permanent Pacemaker insertion, single chamber 10/17/15, [employer] Essentio 2. Syncope R55 3. Chronic atrial fibrillation I48.2 4. Supraventricular tachycardia I47.1 5. Right bundle-branch block I45.10 04/14/18 1218 <Electronically signed by Emiliana Joseph > Date Emiliana Joseph 12/03/17 1102<Electronically signed by Aristeo Lopez MD> Cosigner Signature: Date (if applicable) Aristeo Lopez MD CC: PACEMAKER CHECK Observed: 12/03/2017 Status: F Source: [place] 11:02 AM [facility] REPOSITORY [facility] [address] [place] [address] Pacemaker Check Date of Service: 12/02/17 1548 MR#: [id number] Acct: [id number] Name: JULIAN JACOB Rep #: [id number] : 1935 From: Emiliana Joseph Age/Sex: 82/M [place] [facility] [place]: Signed Comments Summary Comments: Single Chamber Pacemaker Evaluation: Pt came in d/t confused by automated reminder call system, so annual come in check completed since patient was here. Remote check completed earlier today. Interrogation shows 1.3kVHR episodes since 05/09/17. Stored e-grams show atrial fib with RVR and not true VT/VF. Left pectoral pocket/incision w/o s/s of infection or erosion. Pt offers no cardiac complaints. Presenting rhythm shows atrial fib 84 to 120 bpm. CAR INSPECTOR=<1%. Battery longevity approx 7.5 years. lead impedance, sensing and pace/sense threshold remain stable. No parameter changes made. Counters cleared. Next f/u appt scheduled for in 3 mos. Device Device Date Interviewed: 11/21/17 Follow-up Location: remote, in office Interview Reason: routine follow up Dimensional Integration Engineer: [employer] Scientific Name: Essentio SR Model: L100 Serial #: [id number] Implant Date: 10/17/15 Year(s): 2 Patient Characteristics Atrial Indication: Atrial tachycardia, sick sinus syndrome Patient Substrate: Syncope Ejection fraction %: 60 to 64 By: Echo Underlying rhythm: Atrial fibrillation Pacemaker Dependent: No Device Characteristics Device: Single Chamber Type: Pacemaker Remote Follow-Up: [employer] Lead #1 Dimensional Integration Engineer Lead 1: Rupali Model Lead 1: 4137 Serial# Lead 1: [id number] Date Implanted Lead 1: 10/17/15 Position Lead 1: RA Diagnostics Pacing % RV Pacin Arrhythmias Non-Sust Episodes: 1,300 Measurements Battery Magnet Rate (bmp): 100 Battery Status: RAFAEL RV Measurements Signal Amplitude (mV): 24.1 Impedance (Ohms): 709 Threshold Voltage: 0.7 @ PW(ms): 0.4 Chris Settings Bradycardia Mode and Timing Settings Pacemaker Mode: VVI Base Rate: 60 bpm Bradycardia Output and Sensitivity Settings Right Ventricle: 0.4 msec, Automatic1.2 volts. Assessment AND Plan Problems 1. Presence of permanent cardiac pacemaker Z95.0 Permanent Pacemaker insertion, single chamber 10/17/15, [employer] Essentio 2. Syncope R55 3. Supraventricular tachycardia I47.1 4. Chronic atrial fibrillation I48.2 5. Atherosclerotic heart disease of [place] coronary artery without angina pectoris I25.10 PTCA and FORD 09/21/2004 @ [facility] per Dr. [place]: Proximal LAD 12/03/17 0925 <Electronically signed by Emiliana Joseph > Date Emiliana Joseph 12/03/17 1102<Electronically signed by Aristeo Lopez MD> [place] Signature: Date (if applicable) Aristeo Lopez MD CC: CARDIOLOGY VISIT Observed: 11/07/2017 Status: F Source: [place] REPORT 11:53 AM [facility] REPOSITORY [facility] [address] [place] [address] OFFICE VISIT Date of Service: 11/07/17 MR#: [id number] Acct: [id number] Name: JULIAN JACOB Rep #: [id number] : 1935 Provider: Aristeo Lopez MD Age/Sex: 82/M Location: [facility] Status: Signed HPI [facility] Chief Complaint: Follow-up visit. Details: JULIAN JACOB, is a 82 M who presents to the office today for a follow-up visit. He is a gentleman with a history of coronary artery disease status post angioplasty and stenting of the left anterior descending artery was 13 years ago. He also has a history of atrial fibrillation with was unsuccessfully ablated. He underwent permanent pacemaker implantation in 2016 for alternating bundle branch block, syncope and chronic atrial fibrillation he has been on beta gualberto and calcium channel gualberto which has been doing well. He complains of significant itching and he did stop the simvastatin but did not improve it any. It does not appear that the Cardizem also improved it. He is also on thyroid medication. His physical exam today demonstrates clear lung shepard irregular regular heart rate and no pedal edema. He appears to have quite a prurutic condition but no significant rash. Intake Vital Signs11/07/17 Height 6 ft 2 in 11/07/17 Weight: 215 lb 11/07/17 Body Mass Index (BMI) 27.6 11/07/17 Blood Pressure 115/70 Intake Visit Reasons: 6 M FU Is patient in pain?: No Allergies No Known Allergies Allergy (Verified 11/07/17 11:31) Medications Carvedilol [Coreg (Beta Gualberto)] 25 mg PO BID 10/05/14 [History Confirmed 11/04/17] Diltiazem CD [Cardizem CD] 180 mg PO DAILY 09/18/17 [History Confirmed 11/06/17] Warfarin [Coumadin] 3 mg PO SUMOTU 09/18/17 [History Confirmed 11/06/17] Warfarin [Coumadin] 5 mg PO WETHFRSA 09/18/17 [History Confirmed 11/06/17] atorvastatin 10 mg tablet 10 mg PO QDAY #90 tab 11/07/17 [Rx Confirmed 11/07/17] levothyroxine 75 mcg capsule 75 mcg PO QDAY cap 11/07/17 [History Confirmed 11/07/17] Ejection fraction %: 60 to 64 [facility] Medical History Chronic ectopic atrial tachycardia (Chronic) History of syncope (Chronic) History of 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 (Chronic) 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) Premature ventricular contractions (Chronic) Hyperlipidemia (Chronic) Atherosclerotic heart disease of [place] coronary artery without angina pectoris (Chronic) Chronic atrial fibrillation (Chronic) Supraventricular tachycardia (Chronic) Carotid bruit (Chronic) Bundle branch block, right (Chronic) Hypertension (Chronic) PAF (paroxysmal atrial fibrillation) (Chronic) Hypothyroidism (Chronic) Bundle branch block, left (Chronic) Edema (Inactive) Memory loss (Inactive) Shortness of breath (Inactive) Syncope and collapse (Inactive) Surgical History History of craniotomy (Chronic) Presence of permanent cardiac pacemaker (Chronic) S/P PTCA (percutaneous transluminal coronary angioplasty) (Chronic) History of bilateral cataract extraction (Chronic) History of bilateral knee replacement (Chronic) Family History Father , age 59 CAD (coronary artery disease) Myocardial infarction Sudden cardiac Mother , Age 84, stopped eating d/t depression No problems noted. Uncle , age late 40's to early 50's. CAD (coronary artery disease) Sudden cardiac Myocardial infarction Other Heart disease Social History Smoking Status: Former smoker quit date: 06/19/68 ROS Const Const: Positive for weight gain (Is on Oteszla for psoriasis/eczema: diarrhea and weight gain); negative for fatigue, weakness, body ache, fever(s), headache(s), chills, frequent falls, night sweats, daytime sleepiness, difficulty sleeping, excessive sweating, weight loss, increased appetite, poor appetite, anorexia or other Eyes Eyes: Negative for blind spots, loss of peripheral vision, transient loss of vision, blurry vision, change in vision, double vision, floaters, tunnel vision or other ENT ENT: Negative for headache(s), dizziness, hearing loss, tinnitus, Nosebleed/epistaxis, balance problems, post nasal drip, lip swelling, tongue swelling, bleeding gums, hoarseness, neck pain, dry mouth or other Cardio Chest Pain: No Palpitations: No Edema: Bilateral (thinks it may be from the Oteszla, up to below knees, right>left, has cellulitis) Muscle aches with walking: None Resp Respiratory: Positive for SOB with activity (Somewhat increased); negative for SOB at rest, SOB orthopnea\SOB lying down, Coughing up blood/hemoptysis, chest congestion, pain on inspiration, snoring, stridor, wheezing, crackles, paroxysmal nocturnal dyspnea or other GI GI: Negative nausea, vomiting, heartburn, constipation, belching, bloating, cramping, vomiting blood/hematemesis, bright, red blood in stools, black,tarry stools, loose stools, Difficulty Swallowing or other : Negative for hematuria, frequent nighttime urination/ nocturia, erectile dysfunction or abnormal vaginal bleeding Musc Musc: Negative for balance problems, muscle aches/ myalgia, muscle weakness or joint pain Skin Skin: Negative redness, non-healing lesions, rash, unusual bruising, skin ulcer, wounds, jaundice or other Neuro Neuro: Negative for weakness, headache(s), frequent falls, blurry vision, double vision, dizziness, lightheadedness, near syncope, syncope, orthostatic symptoms, confusion, memory loss, restless legs, vertigo, seizures, lack of coordination or other [place] Hematologic/Lymphatic: Negative for easy bleeding, easy bruising, enlarged lymph nodes or other Endo Endo: Negative for fatigue, excessive sweating, cold intolerance, heat intolerance, flushing, increased thirst/drinking, increased hunger, hair loss, hair growth or other Psych Psych: Negative for anxiety, depression, thoughts of harming anyone, thoughts of harming yourself, visual hallucinations, panic attacks or audible hallucinations Allergy Allergy/Immunology: Negative for lip swelling, Negative for tongue swelling, Negative for rash, Negative for throat swelling, Negative for hives Cardiology Exam Const Appearance: cooperative, healthy appearing, well developed, well groomed and no acute distress Nutritional Appearance: well nourished and average body habitus Orientation: alert, awake and oriented x3 Head Head: normal to inspection, normocephalic and atraumatic Ears: hearing grossly normal bilaterally and external ears normal Nose: external nose normal, nasal mucous membranes and turbinates normal, nares normal, septum normal, no nasal discharge Face and Sinus: face symmetric Mouth: oral mucosae normal, tongue normal, oropharynx normal and moist mucous membranes Teeth and gingiva: dentition normal Throat: posterior oropharynx normal, tonsils normal and uvula midline Eyes General: appearance normal, both eyes and all related structures Eyelids: eyelids normal Conjunctivae: conjunctivae normal Pupils: PERRL, normal by confrontation and accommodation normal EOM: EOM intact bilaterally Neck Neck: normal visual inspection, trachea midline and no JVD JVD: +5 Carotids: normal carotid upstroke and bounding pulses Chest Chest inspection: normal inspection of the chest, symmetric chest movement and normal respiratory effort Auscultation: Bilateral: Clear to Auscultation Cardio Palpation: normal PMI Rhythm: irregular rhythm Heart sounds: S1 normal and S2 normal GI GI: normal to inspection, soft, no hepatosplenomegaly and bowel sounds present Neuro General: alert, awake, oriented x3, no focal sensory deficit, gait normal and moves all extremities Skin Skin: no rashes or lesions noted Extremities Pulses: Normal: Right Femoral Pulse, Left Femoral Pulse, Right Dorsalis Pedis Pulse, Left Dorsalis Pedis Pulse, Right Posterior Tibial Pulse, Left Posterior Tibial Pulse, Right Radial Pulse, Left Radial Pulse Lower Extremity Edema: None: Bilateral Musculoskel Musculoskeletal: No joint tenderness Psych Psychological: normal affect Assessment AND Plan 1. Chronic atrial fibrillation I48.2 Plan He continues to have chronic persistent atrial fibrillation with a controlled ventricular response rate. My recommendation will be for him to continue the same without any changes. He does have preserved left ventricular systolic function based on an echocardiogram from 2 years ago estimated at 60%. 2. Hypertension I10 Plan His blood pressure is under good control on the current medical therapy and I would not recommend that we make any changes. 3. S/P PTCA (percutaneous transluminal coronary angioplasty) Z98.61 09/21/2004 @ [facility] per Dr. [place]: Proximal LAD Plan He does not appear to have any angina. He will continue on his current medical therapy. His last stress test did not demonstrate any evidence of ischemia and therefore I would not recommend us making any changes. I will recommend that we start him on his low to medium intensity statin. 4. Presence of permanent cardiac pacemaker Z95.0 Permanent Pacemaker insertion, single chamber 10/17/15, [employer] Plan He continues to have his pacemaker interrogated here in our office. His last pacemaker interrogation had demonstrated chronic atrial fibrillation underlying but stable battery and lead impedances. No other changes will be recommended. Thank you for allowing me to participate in the care of your patient. 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) Coding Level of Care Code Off vis,est,level 4 Diagnoses Chronic atrial fibrillation I48.2 Hypertension I10 S/P PTCA (percutaneous transluminal coronary angioplasty) Z98.61 Presence of permanent cardiac pacemaker Z95.0 Coding Level of Care Code Off vis,est,level 4 Diagnoses Chronic atrial fibrillation I48.2 Hypertension I10 S/P PTCA (percutaneous transluminal coronary angioplasty) Z98.61 Presence of permanent cardiac pacemaker Z95.0 11/07/17 1153 <Electronically signed by Aristeo Lopez MD> Date Aristeo Lopez MD Cosigner Signature: Date (if applicable) CC: Dariusz Gonzalez MD 12 LEAD ELECTROCARDIOGRAM Observed: 09/23/2017 Status: F Source: [place] 4:10 PM [facility] REPOSITORY [facility] Cardiovascular Services [address] [place] [id number] 12 Lead EKG 09/18/17 1732 MR#: [id number] Acct: [id number] Name: JULIAN JACOB Rep #: [id number] : 1935 82 From: Aristeo Lopez MD Attending Dr: Status: DEP ER Ordering Dr: Buddy Amaya MD Date: 09/18/17 Location: ED Sex: M C Admitted: Test Reason : CELLULITIS Blood Pressure : / mmHG Vent. Rate : 112 BPM Atrial Rate : 117 BPM P-R Int : 000 ms QRS Dur : 078 ms QT Int : 362 ms P-R-T Axes : 000 048 014 degrees QTc Int : 494 ms Atrial fibrillation Nonspecific ST abnormality Abnormal ECG Confirmed by ARISTEO LOPEZ MD ([id number]), make up editor STEVE REHMAN ([id number]) on 09/23/2017 4:10:08 PM Referred By: MAUREEN Confirmed By:ARISTEO LOPEZ MD 09/23/17 1610 Date Aristeo Lopez MD CC: Buddy Amaya MD; Dariusz Gonzalez MD Signed EMERGENCY DEPARTMENT Observed: 09/18/2017 Status: F Source: [place] SUMMARY 9:19 PM [facility] REPOSITORY [facility] Medical Records Department [address] [place] [address] Emergency Department Summary 09/18/17 1702 MR#: [id number] Acct: [id number] Name: JULIAN JACOB Rep #: [id number] : 1935 82 From: Buddy Amaya MD PCP: Dariusz Gonzalez MD, Chi Status: DEP ER - ER Visit Summary Date of Service: 09/18/17 Chief Complaint: Atraumatic left lower leg swelling and redness. History of Present Illness: The patient is a 82 M history of CAD with stent A. fib and anticoagulated on Coumadin. History of prior epidural hematoma with brain surgery. Patient states last 4 days he has had atraumatic left lower leg swelling without significant pain. No chest pain or shortness of breath. No history of DVT or PE. No recent travel surgery nor any hospitalization. He does have a history of eczema on his skin. States her left foot was red and now his calf is swollen. He denies any fever or chills. Patient states he feels fine. Physical Examination: Well-appearing elderly male. No acute distress. Vital signs are stable and afebrile. His blood pressure is elevated 197/121. His heart rate 118. Pulse ox 94% on room air no signs of hypoxia. He is in no distress. HEENT exam unremarkable. Neck nontender no JVD. Lungs clear to auscultation bilaterally. Heart A. fib RVR. Rate about 110. Abdomen soft nontender. He is moving all 4 extremities. Neurovascular intact. His left calf is significantly more swollen than the right. His left foot is neurovascularly intact. He does have eczema on both lower extremities. There is some redness on the left lower extremity. There is no significant pain. There is no cord. Above the knee is nontender and there is no swelling in the thigh. And there is no inguinal lymphadenopathy. There is no lymphangitic streaking. Left foot is neurovascularly intact. Neurologic exam is awake and alert without focal motor deficits. Test Results: EKG A. fib rate of 112. CBC shows white count 9. Normal H AND H. No bands. BMP unremarkable. Normal gap. Creatinine 1.2. Patient is on Coumadin his INR is 2.6. Ultrasound of the left lower extremity shows no DVT I discussed with video game technician. Emergency Department Course and Treatment: Patient has atraumatic swelling his left lower extremity which may be secondary to cellulitis of the skin versus a possible DVT. He will have a noninvasive study the left lower extremity and screening labs obtained. Treatment Plan: Patient will be treated for left lower extremity cellulitis. I discussed this with him. He did not want admitted. He knows return if worse. I did speak with his primary care physician Dr. Gonzalez who knows the patient is seen him recently and will ensure close follow-up. Patient replaced both on Keflex 4 times a day and Bactrim twice daily for the next 10 days each. He was instructed to return if feeling worse. He does not look septic or toxic I am comfortable with him being discharged home. Disposition: Discharge Impression: Acute atraumatic left lower leg swelling secondary to left lower extremity cellulitis. Anticoagulated on Coumadin with an INR of 2.6. Chronic A. fib This note was generated with [employer] dictation software. It may contain incorrect words, spelling, and punctuation that were not noted in review of the chart prior to signing ED Disposition - Plan for ED Patient: Chief Complaint: Cellulitis Referrals: Dariusz Gonzalez Chi, MD [Primary Care Provider] - What to do if you have Problems For any increased pain, shortness of breath, bleeding, nausea or vomiting, chest pain, or any unexpected problems, contact your Primary Care Provider. Call [facility] ([phone]) or report to the closest Emergency Room. Call 911 if necessary. 09/18/17 1196 <Electronically signed by Buddy Amaya MD> Date Buddy Amaya MD Cosigner Signature (If Indicated): Date CC: Dariusz Gonzalez MD DISCHARGE INSTRUCTION Observed: 09/18/2017 Status: F Source: [place] 9:19 PM [facility] REPOSITORY [facility] Medical Records Department [address] [place] [address] Discharge Instruction 09/18/172000 MR#: [id number] Acct: [id number] Name: JULIAN JACOB Rep #: [id number] : 1935 82 From: Buddy Amaya MD PCP: Dariusz Gonzalez MD, Chi Status: DEP ER ED Disposition - Plan for ED Patient: Disposition: Home or Assisted Living Chief Complaint: Cellulitis Instructions: Discharge Instructions for Cellulitis Prescriptions: Cephalexin [Keflex] 500 mg PO Q6 10 Days cap Smz/Tmp Ds [Bactrim Ds] 1 tab PO BID #20 tab Referrals: Dariusz Gonzalez Chi, MD [Primary Care Provider] - As soon as possible Additional Instructions: Bactrim 1 pill twice a day for 10 days. Also Keflex 1 pill 4 times a day for 10 days. These are the 2 antibiotics to treat your leg infection. I spoke with Dr. Gonzalez and he will see you in the next several days to ensure your improving. Call his office to make an appointment. Return to ER if feeling worse or the leg looks a lot worse. If you develop fever or chills. You will need your Coumadin level rechecked in about 14 days because the antibiotics you are taking may affect it. What to do if you have Problems For any increased pain, shortness of breath, bleeding, nausea or vomiting, chest pain, or any unexpected problems, contact your Primary Care Provider. Call [facility] ([phone]) or report to the closest Emergency Room. Call 911 if necessary. 09/18/172118 <Electronically signed by Buddy Amaya MD> Date Buddy Amaya MD Cosigner Signature (If Indicated): Date CC: Dariusz Gonzalez MD VENOUS DUPLEX Observed: 09/18/2017 Status: F Source: [place] IMAG/LIMITED/UNI 5:33 PM [facility] REPOSITORY [facility] Imaging Services [address] [place] [address] Venous Duplex Imag/Limited/Uni MR#: [id number] Acct: [id number] Name: JULIAN JACOB Rep #: [id number] : 1935 M 82 From: Benji Roth MD PCP: Dariusz Gonzalez MD, Chi Status: REG ER Study: Venous Duplex Imag/Limited/Uni Date of Exam: 09/18/17 Exam# [id number] Ordering Dr: Buddy Amaya MD STUDY: VENOUS DOPPLER ULTRASOUND - LEFT LOWER EXTREMITY REASON FOR EXAM: Male, 82 years old. Left lower extremity redness swelling TECHNIQUE: Ultrasound evaluation of the deep vein system to include pradhan-scale imaging and compression was performed. Pradhan-scale imaging and Doppler sonographic evaluation, including duplex spectral analysis and qualitative color flow sonography, was performed. COMPARISON: None. FINDINGS: Common Femoral Vein: Normal compression, spontaneity and augmentation. Normal color Doppler. Common Femoral Vein/Greater Saphenous Junction: Normal compression, spontaneity and augmentation. Normal color Doppler. Femoral Proximal: Normal compression, spontaneity and augmentation. Normal color Doppler. Femoral Middle: Normal compression, spontaneity and augmentation. Normal color Doppler. Femoral Distal: Normal compression, spontaneity and augmentation. Normal color Doppler. Popliteal Vein: Normal compression, spontaneity and augmentation. Normal color Doppler. Posterior Tibial Vein: Normal compression, spontaneity and augmentation. Normal color Doppler. Peroneal Vein: Normal compression, spontaneity and augmentation. Normal color Doppler. US/Venous Duplex Imag/Limited/Uni IMPRESSION: Normal venous Doppler ultrasound of the lower extremity. Electronically Signed: Benji Roth MD at 18:18 EST , Service support , CC: Buddy Amaya MD; Dariusz Gonzalez MD Retail Team Leader: Signed CBC W/DIFF, AUTOMATED Collected: 09/18/2017 Status: F Source: [place] 5:13 PM [facility] REPOSITORY TYPE CODE TESTS RESULT OUT OF RANGE REFERENCE UNITS LAB L100.1000 4.4-11.0 K/mm3 Normal WBC 9.7 LAB L100.1200 4.6-6.2 M/mm3 Normal RBC 5.25 LAB L100.1300 13.0-16.5 g/dl Normal HGB 13.7 LAB L100.1400 40-54 % Normal HCT 42.5 LAB L100.1500 80-94 fL Normal MCV 81.0 LAB L100.1600 27.0-32.0 pg Low MCH 26.1 LAB L100.1700 32-36 g/gl Normal MCHC 32.2 LAB L100.1810 11.6-14.6 % High RDW CV 19.5 LAB L100.1820 35.1-43.9 fl High RDW SD 58.4 LAB L100.1900 150-450 K/mm3 Normal PLT 343 LAB L100.2000 6.2-12.0 fl Normal MPV 9.7 LAB L100.2100 47-70 % Normal NEUT% 64.3 LAB L100.2200 19-41 % Low LY% 16.9 LAB L100.2300 0-10 % Normal MONO% 9.2 LAB L100.2400 0-5 % High EO% 8.3 LAB L100.2500 0-1 % Normal BASO% 0.7 LAB L100.2550 0.0-0.9 % Normal IM GRAN % 0.600 Result Comment: IG% - Immature Granulocytes (promyelocytes, myelocytes and metamyelocytes) > 1% indicates that a LEFT SHIFT is Present. LAB L100.2620 2.0-7.7 X10 3/uL Normal Absolute Neut 6.2 LAB L100.2720 0.83-4.51 X10 3/ul Normal Absolute Lymph 1.64 Performed By: #### L100.0100 #### [facility] [address] [place], [address] PROTHROMBIN TIME W/INR Collected: 09/18/2017 Status: F Source: [place] 5:13 PM [facility] REPOSITORY TYPE CODE TESTS RESULT OUT OF RANGE REFERENCE UNITS LAB L300.4150 11.7-14.9 SECONDS High PROTIME 27.1 LAB L300.4200 Normal INR 2.6 Performed By: #### L300.3900 #### [facility] [address] [place], [address] BASIC METABOLIC Collected: 09/18/2017 Status: F Source: [place] PROFILE (BMP) 5:13 PM [facility] REPOSITORY TYPE CODE TESTS RESULT OUT OF RANGE REFERENCE UNITS LAB L501.0100 70-110 mg/dL Normal GLU 96 LAB L501.1000 7-18 mg/dL High BUN 25 LAB L501.1100 0.70-1.30 mg/dL Normal 1.25 CREAT,SERUM Result Comment: The validity of the calculated GFR AND GFRAA in patients over 70 years has not been determined. Clinical correlation is essential. LAB L501.1110 >60 mL/min Low EST GFR 59 Result Comment: Non- GFR Calc LAB L501.1115 >60 mL/min Normal EST GFR - AA 71 Result Comment: GFR Calc LAB L501.1255 ml/min Normal Estimated CRCL 53.89 LAB L501.1300 10-20 RATIO Normal BUN/CRE 20.0 LAB L501.2200 8.5-10 mg/dL Low .1 CA 8.3 LAB L501.5300 136-14 mmol/L Normal 5 NA 139 LAB L501.5600 3.5-5. mmol/L Normal 1 K 4.4 LAB L501.5900 98-107 mmol/L High CL 108 LAB L501.6100 21.0-3 mmol/L Normal 2.0 CO2 21.0 LAB L501.6200 5-15 Normal GAP 10 Performed By: #### L500.2500 #### [facility] [address] [place], [address] CBC W/DIFF, AUTOMATED Collected: 09/17/2017 Status: F Source: [place] 2:41 PM [facility] REPOSITORY TYPE CODE TESTS RESULT OUT OF RANGE REFERENCE UNITS LAB L100.1000 4.4-11.0 K/mm3 Normal WBC 10.0 LAB L100.1200 4.6-6.2 M/mm3 Normal RBC 5.26 LAB L100.1300 13.0-16.5 g/dl Normal HGB 13.8 LAB L100.1400 40-54 % Normal HCT 43.0 LAB L100.1500 80-94 fL Normal MCV 81.7 LAB L100.1600 27.0-32.0 pg Low MCH 26.2 LAB L100.1700 32-36 g/gl Normal MCHC 32.1 LAB L100.1810 11.6-14.6 % High RDW CV 19.6 LAB L100.1820 35.1-43.9 fl High RDW SD 58.7 LAB L100.1900 150-450 K/mm3 Normal PLT 361 LAB L100.2000 6.2-12.0 fl Normal MPV 9.9 LAB L100.2100 47-70 % Normal NEUT% 67.8 LAB L100.2200 19-41 % Low LY% 17.2 LAB L100.2300 0-10 % Normal MONO% 7.1 LAB L100.2400 0-5 % High EO% 7.1 LAB L100.2500 0-1 % Normal BASO% 0.4 LAB L100.2550 0.0-0.9 % Normal IM GRAN % 0.400 Result Comment: IG% - Immature Granulocytes (promyelocytes, myelocytes and metamyelocytes) > 1% indicates that a LEFT SHIFT is Present. LAB L100.2620 2.0-7.7 X10 3/uL Normal Absolute Neut 6.8 LAB L100.2720 0.83-4.51 X10 3/ul Normal Absolute Lymph 1.72 Performed By: #### L100.0100 #### [facility] [place], [address] COMPREHENSIVE METABOLIC Collected: 09/17/2017 Status: F Source: [place] PROFIL 2:41 PM [facility] REPOSITORY TYPE CODE TESTS RESULT OUT OF RANGE REFERENCE UNITS LAB L501.0100 70-110 mg/dL Normal GLU 98 LAB L501.1000 7-18 mg/dL High BUN 22 LAB L501.1100 0.70-1.30 mg/dL Normal 1.26 CREAT,SERUM Result Comment: The validity of the calculated GFR AND GFRAA in patients over 70 years has not been determined. Clinical correlation is essential. LAB L501.1110 >60 mL/min Low EST GFR 58 Result Comment: Non- GFR Calc LAB L501.1115 >60 mL/min Normal EST GFR - AA 71 Result Comment: GFR Calc LAB L501.1300 10-20 RATIO Normal BUN/CRE 17.5 LAB L501.1500 6.4-8.2 g/dL T Normal PROT 7.3 LAB L501.1800 3.2-5.0 g/dL Normal ALB 3.2 LAB L501.1950 2.2-4.2 g/dL Normal GLOB 4.1 LAB L501.2000 0.9-2.4 RATIO Low A/G 0.8 LAB L501.2200 8.5-10.1 mg/dL CA Normal 8.5 LAB L501.4100 15-37 U/L Normal AST 21 LAB L501.4305 45-117 U/L High ALK P 122 LAB L501.4405 16-61 U/L Normal ALT 28 Result Comment: Please note revised ALT reference range effective 2017. LAB L501.4600 0.20-1.00 mg/dL Normal T BILI 0.40 LAB L501.5300 136-145 mmol/L Normal NA 141 LAB L501.5600 3.5-5.1 mmol/L Normal K 4.5 LAB L501.5900 98-107 mmol/L Normal CL 106 LAB L501.6100 21.0-32.0 mmol/L Normal CO2 26.0 LAB L501.6200 5-15 Normal GAP 9 Performed By: #### L500.4050, L501.9520 #### [facility] [address] [place], [address] THYROID STIM HORMONE Collected: 09/17/2017 Status: F Source: [place] (TSH) 2:41 PM [facility] REPOSITORY TYPE CODE TESTS RESULT OUT OF RANGE REFERENCE UNITS LAB L501.9520 0.358-3.74 uIU/mL Normal TSH 2.11 Performed By: #### L500.4050, L501.9520 #### [facility] [address] [place], [address] VITAMIN D,25 HYDROXY Collected: 09/17/2017 Status: F Source: [place] 2:41 PM [facility] REPOSITORY TYPE CODE TESTS RESULT OUT OF REFERENCE UNITS RANGE LAB L506.1000 19.95-100.01 ng/mL Low Vitamin D 15.4 25-OH Result Comment: Vitamin D 25(OH) Status Range Deficiency <20 ng/mL (50nmol/L) Insuffciency 20 - 30 ng/mL (50 - 75 nmol/L) Sufficiency 30 - 100 ng/mL (75 - 250 nmol/L) Toxicity >100 ng/mL (>250 nmol/L) Performed By: #### L506.1000 #### [facility] [address] [place], [address] ALLERGIES ALLERGIES DATE TYPE / CODE NAME / CODE REACTION SEVERITY SOURCE 07/31/2018 Drug No Known Unknown [facility] Allergy/4160 Allergies/F00 Hospital 16556(SNOMED 1938670(RXNOR Repository CT) M) ENCOUNTERS ENCOUNTERS ADMIT/DISCHARGE ACCOUNT ADMITTING ENCOUNTER LOCATION SOURCE NUMBER CLASS 09/09/2018 [id number] Ambulatory [place] 6 [facility] ing:PT Repository 09/04/2018 [id number] Ambulatory [place] 7 [facility] ing:MTLAB Repository 09/03/2018/ [id number] Ambulatory BMSBuilding:B [place] 9 [address] [facility] Repository 08/20/2018 [id number] Ambulatory [place] 2 [facility] ing:MTLAB Repository 08/04/2018/ [id number] Dariusz Gonzalez Chi Inpatient [place] 8 3 [facility] ing:TCURoom: Repository [id number]: 1 08/01/2018/ [id number] Agyeangelineg, Inpatient [place] 6 [place] Encounter [facility] ing:AO6Rslm: Repository [id number]: 1 08/01/2018 [id number] Agyepong, Ambulatory BMSBuilding:B [place] 6 [place] [facility] Repository 08/01/2018 [id number] Agyepong, Ambulatory BMSBuilding:B [place] 2 [place] Repository 08/01/2018 [id number] Agyepong, Ambulatory BMSBuilding:B [place] 8 [place] [facility] Repository 07/31/2018 [id number] Agyepong, Ambulatory BMSBuilding:B [place] 9 [place] [facility] Repository 07/31/2018 [id number] Agyepong, Ambulatory BMSBuilding:B [place] 0 [place] Repository 06/24/2018 [id number] Ambulatory [place] 5 [facility] ing:MTLAB Repository 06/10/2018 [id number] Ambulatory [place] 4 [facility] ing:MTLAB Repository 06/05/2018/ [id number] Ambulatory BMSBuilding:B [place] 8 [address] [facility] Repository 06/05/2018/ [id number] Ambulatory BMSBuilding:B [place] 8 [address] [facility] Repository 05/27/2018 [id number] Ambulatory [place] 9 [facility] ing:MTLAB Repository 03/31/2018 [id number] Ambulatory [place] 7 [facility] ing:CVS Repository 03/31/2018 [id number] Ambulatory BMSBuilding:W [place] 7 [facility] Repository 03/25/2018 [id number] Ambulatory [place] 2 [facility] ing:PSN Repository 03/13/2018 [id number] Ambulatory [place] 3 [facility] ing:CVS Repository 03/11/2018 [id number] [facility] 3 [facility] [facility]:LAB Repository 03/10/2018 [id number] [place]ulatory [place] 6 [facility] ing:LAB Repository 03/10/2018/ [id number] Ambulatory BMSBuilding:B [place] [address] [facility] Repository 02/24/2018/ [id number] Ambulatory BMSBuilding:B [place] [address] [facility] Repository 01/10/2018 [id number] Ambulatory [place] 8 [facility] ing:MTLAB Repository 12/17/2017 [id number] Ambulatory [place] 5 [facility] ing:MTLAB Repository 12/09/2017/ [id number] Ambulatory [place] 8 9 [facility] ing:MTLAB Repository 11/21/2017/ [id number] Ambulatory BMSBuilding:B [place] [address] [facility] Repository 11/07/2017/ [id number] Ambulatory BMSBuilding:B [place] [address] [facility] Repository 09/18/2017/ [id number] Emergency Fernanda [place] 8 9 [facility] ing:ED Repository 09/17/2017 [id number] Ambulatory [place] 4 [facility] ing:POLAB3 Repository PAYERS PAYERS ENCOUNTER GUARANTOR 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 SOURCE 09/09/2018 JULIAN H Primary JULIAN H [place] [id number] Insurance[facility] [id number] Number: Repository [address]Kvi: ([phone]) [id number] [phone] () Date:2001-08-19 09/09/2018 Secondary JULIAN H [place] [facility] Number: [id number] Hospital [id number] Rep[facility] Date: [facility] [place] [address]SL: 09/09/2018 Tertiary NOT GIVENUNK Fernanda Insurance:SELF PAY [facility] Number: Effective Repository Date:2018-08-21 09/04/2018 JULIAN H Primary JULIAN H [place] [id number] Insurance:MEDICARE WILSFORDDOB: [facility] [id number] Number: Repository [address]Bje: 330 [id number] [phone] () Date:2018-09-04 09/04/2018 Secondary JULIAN H [place] Insurance:MCCOY WILSFORDDOB: Community RULEPolicy Number: [id number] Hospital [id number] Repository Date: [facility], [place] [address]NK: 09/04/2018 Tertiary NOT GIVENUNK [place] Insurance:SELF PAY [facility]: Effective Repository Date:2018-09-04 09/03/2018 JULIAN H Primary JULIAN H [place] [id number] Insurance:MEDICARE WILSFORDDOB: Community [place] PART A [facility] [id number] [facility] Number: Repository [address]Qre: 330 [id number] [phone] () Date:2018-09-03 09/03/2018 Secondary JULIAN H Fernanda Insurance:MCCOY WILSFORDDOB: Community RULEPolicy Number: [id number] Hospital [id number] Repository Date: [facility], [place] [address]KI: 09/03/2018 Tertiary NOT GIVENUNK Fern[place] Insurance:SELF PAY [facility] Number: Effective Repository Date:2018-09-03 08/20/2018 JULIAN H Primary JULIAN H [place] [id number] Insurance:MEDICARE WILSFORDDOB: Community RAFFAE[place] PART A olic [id number] [facility] Number: Repository [address]Ctk: 330 [id number] [phone] () Date:2018-08-20 08/20/2018 Secondary JULIAN H [place] Insurance:MCCOY WILSFORDDOB: Community RULEPolicy Number: [id number] Hospital [id number] Repository Date: [facility], [place] [address]EH: 08/20/2018 Tertiary NOT GIVENUNK [place] Insurance:SELF PAY [facility] Hospital Number: Effective Repository Date:2018-08-20 08/04/2018 JULIAN H Primary JULIAN H [place] [id number] Insurance:MEDICARE WILSFORDDOB: Community [place] PART [place] [facility] [id number] [place] Number: Repository [address]Mcy: 330 [id number] [phone] () Date:2018-08-04 08/04/2018 Secondary JULIAN H Fernanda Insurance:MCCOY WILSFORDDOB: [facility]ly [facility] Number: [id number] Hospital [id number] Repository Date: [place], [place] [address]DY: 08/04/2018 Tertiary NOT GIVENUNK [place] Insurance:SELF PAY [facility] Hospital Number: Effective Repository Date:2018-08-04 08/01/2018 JULIAN H Primary JULIAN H [place] [id number] Insurance:MEDICARE WILSFORDDOB: [facility] PART A [facility] [id number] [facility] Number: Repository [address]Doy: 330 [id number] [phone] () Date:2018-07-31 08/01/2018 Secondary JULIAN H [place] Insurance:MCCOY WILSFORDDOB: [facility] Number: [id number] Hospital [id number] Repository Date: [place], [place] [address]PB: 08/01/2018 Tertiary NOT GIVENUNK [place] Insurance:SELF PAY [facility] Hospital Number: Effective Repository Date:2018-07-31 08/01/2018 JULIAN H Primary JULIAN H [place] [id number] Insurance:MEDICARE WILSFORDDOB: Community [place] PART A [facility] [id number] [facility] [place] Number: Repository [address]Mgs: 330 [id number] [phone] () Date:2018-07-31 08/01/2018 Secondary JULIAN H [place] Insurance:MCCOY WILSFORDDOB: Community RULEPolicy Number: [id number] Hospital [id number] Repository Date: [place], [place] [address]WO: 08/01/2018 Tertiary NOT GIVENUNK [place] Insurance:SELF PAY [facility] Number: Effective Repository Date:2018-08-01 08/01/2018 JULIAN H Primary JULIAN H [place] [id number] Insurance:MEDICARE WILSFORDDOB: Community [place] PART A olic [id number] Number: Repository [address]Aqg: 330 [id number] [phone] () Date:2018-07-31 08/01/2018 Secondary JULIAN H [place] Insurance:MCCOY WILSFORDDOB: [facility]: [id number] Hospital [id number] Repository Date: [facility] [place] [address]ZT: 08/01/2018 Tertiary NOT GIVENUNK [place] Insurance:SELF PAY [facility] Number: Effective Repository Date:2018-08-01 08/01/2018 JULIAN H Primary JULIAN H [place] [id number] Insurance:MEDICARE WILSFORDDOB: Community [place] PART A [facility] [id number] Number: Repository [address]Kzz: 330 [id number] [phone] () Date:2018-07-31 08/01/2018 Secondary JULIAN H [place] Insurance:MCCOY WILSFORDDOB: [facility]ly [facility] RULEBannericy Number: [id number] Hospital [id number] Repository Date: [facility], [place] [address]DI: 08/01/2018 Tertiary NOT GIVENUNK [place] Insurance:SELF PAY [facility] Number: Effective Repository Date:2018-08-01 07/31/2018 JULIAN H Primary JULIAN H [place] [id number] Insurance:MEDICARE WILSFORDDOB: Community [place] PART A olicy [id number] Number: Repository [address]Job: 330 [id number] [phone] () Date:2018-07-31 07/31/2018 Secondary JULIAN H [place] Insurance:MCCOY WILSFORDDOB: Community RULEPolicy Number: [id number] Hospital [id number] Repository Date: [facility], [place] [address]NT: 07/31/2018 Tertiary NOT GIVENUNK [place] Insurance:SELF PAY [facility] Number: Effective Repository Date:2018-07-31 07/31/2018 JULIAN H Primary JULIAN H [place] [id number] Insurance:MEDICARE WILSFORDDOB: Community [place] olic [id number] Number: Repository [address]Jcz: 330 [id number] [phone] () Date:2018-07-31 07/31/2018 Secondary JULIAN H [place] Insurance:MCCOY WILSFORDDOB: Formerly [facility] RULEBannericy Number: [id number] Hospital [id number] Repository Date: [facility] [place], [place] [address]SD: 07/31/2018 Tertiary NOT GIVENUNK [place] Insurance:SELF PAY [facility] Hospital Number: Effective Repository Date:2018-07-31 06/24/2018 JULIAN H Primary JULIAN H [place] [id number] Insurance:MEDICARE WILSFORDDOB: Community [place] olic [id number], [place] Number: Repository [address]Ddm: [phone]) [id number] [phone] () Date:2018-06-24 06/24/2018 Secondary JULIAN H [place] Insurance:MCCOY WILSFORDDOB: [facility]ly [facility] RULEPolicy Number: [id number] Hospital [id number] Repository Date: [facility], [place] [address]YT: 06/24/2018 Tertiary NOT GIVENUNK [place] Insurance:SELF PAY [facility] Hospital Number: Effective Repository Date:2018-06-24 06/10/2018 JULIAN H Primary JULIAN H [place] [id number] Insurance:MEDICARE WILSFORDDOB: Community [place] PART A [facility] [id number] Number: Repository [address]Cyx: [phone]) [id number] [phone] () Date:2018-06-10 06/10/2018 Secondary JULIAN H [place] Insurance:MCCOY WILSFORDDOB: [facility] Number: [id number] Hospital [id number] Repository Date: [place], [place] [address]GN: 06/10/2018 Tertiary NOT GIVENUNK [place]anda Insurance:SELF PAY [facility] Hospital Number: Effective Repository Date:2018-06-10 06/05/2018 JULIAN H Primary JULIAN H [place] [id number] Insurance:MEDICARE WILSFORDDOB: Community [place] A [facility] [id number] [facility] [place] Number: Repository [address]Zzq: (369) [id number] [phone] () Date:2017-11-07 06/05/2018 Secondary JULIAN H [place] Insurance:MCCOY WILSFORDDOB: [facility] Number: [id number] Hospital [id number] Repository Date: [place], [place] [address]EX: 06/05/2018 Tertiary NOT GIVENUNK [place]anda Insurance:SELF PAY [facility] Hospital Number: Effective Repository Date:2018-05-22 06/05/2018 JULIAN H Primary JULIAN H [place] [id number] Insurance:MEDICARE WILSFORDDOB: Community [place] A [facility] [id number] Number: Repository [address]Otd: ([phone]) [id number] [phone] () Date:2017-11-30 06/05/2018 Secondary JULIAN H [place] Insurance:MCCOY WILSFORDDOB: Community RULEPolicy Number: [id number] Hospital [id number] Repository Date: [facility] [place] [address]LG: 06/05/2018 Tertiary NOT GIVENUNK [place] Insurance:SELF PAY [facility] Number: Effective Repository Date:2018-05-22 05/27/2018 JULIAN H Primary JULIAN H [place] [id number] Insurance:MEDICARE WILSFORDDOB: Community [place] PART A [facility] [id number], [place] Number: Repository [address]Dsb: [phone]) [id number] [phone] () Date:2018-05-27 05/27/2018 Secondary JULIAN H [place] Insurance:MCCOY WILSFORDDOB: [facility] Number: [id number] Hospital [id number] Repository Date: [facility], [place] [address]CN: 05/27/2018 Tertiary NOT GIVENUNK [place] Insurance:SELF PAY [facility] Number: Effective Repository Date:2018-05-27 03/31/2018 JULIAN H Primary JULIAN H [place] [id number] Insurance:MEDICARE WILSFORDDOB: Community [place] PART A [facility] [id number] Number: Repository [address]Ena: 330 [id number] [phone] () Date:2018-03-10 03/31/2018 Secondary JULIAN H [place] Insurance:MCCOY WILSFORDDOB: [facility] Number: [id number] Hospital [id number] Repository Date: [facility], [place] [address]RP: 03/31/2018 Tertiary NOT GIVENUNK [place] Insurance:SELF PAY [facility] Number: Effective Repository Date:2018-03-10 03/31/2018 JULIAN H Primary JULIAN H [place] [id number] Insurance:MEDICARE WILSFORDDOB: Community [place] PART A [facility] [id number] Number: Repository [address]Vhl: 330 [id number] [phone] () Date:2018-03-10 03/31/2018 Secondary JULIAN H [place] Insurance:MCCOY WILSFORDDOB: [facility]ly [facility] RULEPolicy Number: [id number] Hospital [id number] Repository Date: [facility], [place] [address]MI: 03/31/2018 Tertiary NOT GIVENUNK [place] Insurance:SELF PAY [facility] Number: Effective Repository Date:2018-03-31 03/25/2018 JULIAN H Primary JULIAN H [place] [id number] Insurance:MEDICARE WILSFORDDOB: Community [place] PART A [facility] [id number] [facility] [place] Number: Repository [address]Num: 330 [id number] [phone] (HP) Date:2018-03-12 03/25/2018 Secondary JULIAN H [place] Insurance:[facility]OY [facility]ITAL[facility]ORDD[facility]: [facility] Number: [id number] Hospital [id number] Repository Date: [facility], [place] [address]BP: 03/25/2018 Tertiary NOT GIVENUNK [place] Insurance:SELF PAY [facility] Hospital Number: Effective Repository Date:2018-03-12 03/13/2018 JULIAN H Primary JULIAN H [place] [id number] Insurance:MEDICARE WILSFORDDOB: Community [place] PART A [facility] [id number], [place] Number: Repository [address]Rtb: 330 [id number] [phone] (HP) Date:2018-03-10 03/13/2018 Secondary JULIAN H [place] Insurance:MCCOY WILSFORDDOB: [facility]ly [facility] RULEBanneric Number: [id number] Hospital [id number] Repository Date: [facility], [place] [address]WS: 03/13/2018 Tertiary NOT GIVENUNK [place] Insurance:SELF PAY [facility] Number: Effective Repository Date:2018-03-10 03/11/2018 JULIAN H Primary JULIAN H [place] [id number] Insurance:MEDICARE WILSFORDDOB: Community [place] PART A [facility] [id number] [facility] Number[place] Repository [address]Djd: (632) [id number] [phone] () Date:2018-03-11 03/11/2018 Secondary JULIAN H [place] Insurance:MCCOY [facility]ITALSFORDD[facility]: [facility] Number: [id number] Hospital [id number] Repository Date: [place], [place] [address]ZR: 03/11/2018 Tertiary NOT GIVENUNK [place] Insurance:SELF PAY [facility] Hospital Number: Effective Repository Date:2018-03-11 03/10/2018 JULIAN H Primary JULIAN H [place] [id number] Insurance:MEDICARE WILSFORDDOB: Community [place] PART A [facility] [id number] [facility] Number: Repository [address]Rke: [phone]) [id number] [phone] () Date:2018-03-10 03/10/2018 Secondary JULIAN H [place] Insurance:MCCOY [facility]ITALSFORDDOB: [facility] Number: [id number] Hospital [id number] Repository Date: [place], [place] [address]KQ: 03/10/2018 Tertiary NOT GIVENUNK [place] Insurance:SELF PAY [facility] Hospital Number: Effective Repository Date:2018-03-10 03/10/2018 JULIAN H Primary JULIAN H [place] [id number] Insurance:MEDICARE WILSFORDDOB: Community [place] PART A [facility] [id number] [facility] Number[place] Repository [address]Qec: ([phone]) [id number] [phone] () Date:2018-03-10 03/10/2018 Secondary JULIAN H [place] Insurance:MCCOY WILSFORDDOB: Community RULEPolicy Number: [id number] Hospital [id number] Rep[facility] Date: [place] [facility] [facility] [address]IM: 03/10/2018 Tertiary NOT GIVENUNK [place] Insurance:SELF PAY [facility] Number: Effective Repository Date:2018-03-10 02/24/2018 JULIAN H Primary JULIAN H [place] [id number] Insurance:MEDICARE WILSFORDDOB: Community [place] PART A [facility] [id number] [facility] [place] Number: Repository [address]Gbl: ([phone]) [id number] [phone] () Date:2017-11-30 02/24/2018 Secondary JULIAN H [place] Insurance:MCCOY [facility]ITALSFORDDOB: [facility] Number: [id number] Hospital [id number] Repository Date: [facility], [place] [address]CC: 02/24/2018 Tertiary NOT GIVENUNK [place] Insurance:SELF PAY [facility] Number: Effective Repository Date:2018-02-24 01/10/2018 JULIAN H Primary JULIAN H [place] [id number] Insurance:MEDICARE WILSFORDDOB: Community [place] PART A [facility] [id number] [facility] [place] Number: Repository [address]Yrd: 330 [id number] [phone] () Date:2018-01-10 01/10/2018 Secondary JULIAN H [place] Insurance:MCCOY WILSFORDDOB: [facility] Number: [id number] Hospital [id number] Repository Date: [facility], [place] [address]BV: 01/10/2018 Tertiary NOT GIVENUNK [place] Insurance:SELF PAY [facility] Number: Effective Repository Date:2018-01-10 12/17/2017 JULIAN H Primary JULIAN H [place] [id number] Insurance:MEDICARE WILSFORDDOB: Community [place] PART A olic [id number] [facility] [place] Number: Repository [address]Vte: 330 [id number] [phone] () Date:2017-02-26 12/17/2017 Secondary JULIAN H [place] Insurance:MCCOY WILSFORDDOB: Formerly [facility] RULEBannericy Number: [id number] Hospital [id number] Repository Date: [facility], [place] [address]MR: 12/17/2017 Tertiary NOT GIVENUNK [place] Insurance:SELF PAY [facility] Hospital Number: Effective Repository Date:2017-12-17 12/09/2017 JULIAN H Primary JULIAN H [place] [id number] Insurance:MEDICARE WILSFORDDOB: Community [place] PART A [facility] [id number] Cancer [facility] Number: Repository [address]Txw: 330 [id number] [phone] () Date:2017-02-26 12/09/2017 Secondary JULIAN H [place] Insurance:MCCOY [facility]ITALSFORDD[facility]: [facility] Number: [id number] Hospital [id number] Repository Date: [facility], [place] [address]TI: 12/09/2017 Tertiary NOT GIVENUNK [place] Insurance:SELF PAY [facility] Hospital Number: Effective Repository Date:2017-02-16 11/21/2017 JULIAN H Primary JULIAN H [place] [id number] Insurance:MEDICARE WILSFORDDOB: Community [place] A [facility] [id number] [facility], [place] Number[place] Repository [address]Uhl: 330 [id number] [phone] () Date:2017-08-15 11/21/2017 Secondary JULIAN H [place] Insurance:MCCOY WILSFORDDOB: [facility] Number: [id number] Hospital [id number] Repository Date: [facility], [place] [address]IE: 11/21/2017 Tertiary NOT GIVENUNK [place] Insurance:SELF PAY [facility] Number: Effective Repository Date:2017-11-21 11/07/2017 JULIAN H Primary JULIAN H [place] [id number] Insurance:MEDICARE WILSFORDDOB: Community RAFF[place] PART A [facility] [id number] [facility] Repository [address]Ibi: [phone]) [id number] [phone] () Date:2017-07-28 11/07/2017 Secondary JULIAN H [place] Insurance:MCCOY [facility]ITALSFORDDOB: [facility] RULEPolic Number: [id number] Hospital [id number] Repository Date[facility] [place] [place] [address]MH: 11/07/2017 Tertiary NOT GIVENUNK [place] Insurance:SELF PAY [facility] Number: Effective Repository Date:2017-11-07 09/18/2017 JULIAN H Primary JULIAN H [place] [id number] Insurance:MEDICARE WILSFORDDOB: Community [place] A [facility] [id number] [facility] Number[place]ository [address]Duj: [phone]) [id number] [phone] () Date:2017-09-18 09/18/2017 Secondary JULIAN H [place] Insurance:MCCOY WILSFORDDOB: Formerly [facility] RULEBanneric Number: [id number] Hospital [id number] Repository Date: [place], [place] [address]YD: 09/18/2017 Tertiary NOT GIVENUNK [place] Insurance:SELF PAY [facility] Hospital Number: Effective Repository Date:2017-09-18 09/17/2017 JULIAN H Primary JULIAN H [place] [id number] Insurance:MEDICARE WILSFORDDOB: Community [place] PART A [facility] [id number] [facility] Number[place] Repository [address]Fur: [phone]) [id number] [phone] () Date:2017-09-17 09/17/2017 Secondary JULIAN [place] Insurance:NADINE BOWDENB: [facility]ly [facility] Number: [id number] Hospital [id number] Repository Date: [place] [address]IP: 09/17/2017 Tertiary NOT GIVENUNK [place] Insurance:SELF PAY [facility] Number: Effective Repository Date:2017-09-17
== END 2018-08-04 14:28 | disposition skilled nursing facility (03) | DRG 914 ==
LOC: ED 21:08 → MS3 23:00
PROVIDERS: Internal Medicine; Admitting Provider Hospitalist; Emergency Provider Emergency Medicine; Family Provider Family Medicine Geriatric Medicine; PCP Family Medicine Geriatric Medicine; Visit Provider Internal Medicine
DX: S79.912A Unspecified injury of left hip, initial encounter (principal); W01.0XXA Fall on same level from slipping, tripping and stumbling without subsequent striking against object, initial encounter; Y92.019 Unspecified place in single-family (private) house as the place of occurrence of the external cause; I95.1 Orthostatic hypotension; E86.0 Dehydration; I48.2 Chronic atrial fibrillation; E03.9 Hypothyroidism, unspecified; I10 Essential (primary) hypertension; E78.5 Hyperlipidemia, unspecified; I25.10 Atherosclerotic heart disease of native coronary artery without angina pectoris; M19.90 Unspecified osteoarthritis, unspecified site; I44.7 Left bundle-branch block, unspecified; Z87.891 Personal history of nicotine dependence; Z95.0 Presence of cardiac pacemaker; Z79.01 Long term (current) use of anticoagulants
CPT/HCPCS: 36415; 73502; 73700; 80048; 82306; 85025; 85027; 85610; 97110; 97116; 97162; 97165; 97530; 97535; 99282; J7030; J7050

== ENCOUNTER 2018-08-04 14:40 | Inpatient (IN) | payer MEDICARE, OTHER, SELFPAY ==
[2018-08-04 14:45] VITALS: BP 108/86; PULSE 91; RESP 16; TEMP 36.3; O2SAT 98
--- NOTE | 2018-08-04 14:53 | NURSING ---
PT ARRIVED VIA AT [id number]
[2018-08-04 15:48] VITALS: BMI 21.2
[2018-08-04 15:50] VITALS: BMI 21.2
[2018-08-04] MEDS: Mupirocin Ointment 22gm Tube 1 APPLIC TOPICAL (16:56)
[2018-08-04] MEDS: Docusate Sodium 100 MG Capsule 200 MG PO (16:56)
--- NOTE | 2018-08-04 19:43 | PCM.HP.STD ---
Problem List (1) Left hip pain Status: Acute (2) Hematoma Status: Acute (3) Debility Status: Acute (4) Atrial fibrillation Status: Chronic (5) Coronary artery disease Status: Chronic (6) Glaucoma Status: Chronic (7) Fall Status: Acute (8) Hyperlipidemia Status: Chronic (9) Hypertension Status: Chronic Qualifiers: (10) Osteoarthritis Status: Chronic (11) Hypothyroidism Status: Chronic History of Present Illness Date of Admission: 08/04/18 Chief Complaint: Here for rehabilitation, strengthening, prior to discharge home with family. The patient is a 82 year old Male with below past medical history presented to [facility] Emergency Department 07/31/2018 with trip, fall, left hip pain. Fell on carpet, landed on left hip. On coumadin for atrial fibrillation. X-ray left hip negative for fracture. Unable to walk. 07/31/2018 Admit to Hospital. Vicodin PRN pain, cold compresses PRN. Bactroban left elbow skin tear. 08/01/2018 Orthostasis treated with IV fluids. Left hip pain persists. 08/02/2018 IV fluids for hypotension. 08/03/2018 CT left hip negative fracture. Left gluteal hematoma noted. 08/04/2018 Admit to TCU for rehabilitation, strengthening, prior to discharge home with family. Monitor left hip hematoma. 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 [place]: Proximal LAD Chronic atrial fibrillation (Chronic) Supraventricular tachycardia (Chronic) Carotid bruit (Chronic) Presence of permanent cardiac pacemaker (Chronic) Permanent Pacemaker insertion, single chamber 10/17/15, [employer] Bundle branch block, right (Chronic) Hypertension (Chronic) PAF (paroxysmal atrial fibrillation) (Chronic) Osteoarthritis (Chronic) Hypothyroidism (Chronic) S/P PTCA (percutaneous transluminal coronary angioplasty) (Chronic) 09/21/2004 @ [facility] per Dr. Birmingham: Proximal LAD Bundle branch block, left (Chronic) Medical History: Medical History (Last Reviewed 08/01/18 @ 00:55 by Fabian Elizabeth MD) Chronic ectopic atrial tachycardia (Chronic) I47.1 History of syncope (Chronic) Z87.898 History of 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 (Chronic) Z86.79 09/13/2008 shelter current use of anticoagulant (Chronic) Z79.01 Premature ventricular contractions (Chronic) I49.3 Hyperlipidemia (Chronic) E78.5 Atherosclerotic heart disease of [place] coronary artery without angina pectoris (Chronic) I25.10 PTCA and FORD 09/21/2004 @ [facility] per Dr. Birmingham: Proximal LAD Chronic atrial fibrillation (Chronic) I48.2 Supraventricular tachycardia (Chronic) I47.1 Carotid bruit (Chronic) R09.89 Bundle branch block, right (Chronic) I45.10 Hypertension (Chronic) I10 PAF (paroxysmal atrial fibrillation) (Chronic) I48.0 Hypothyroidism (Chronic) E03.9 Bundle branch block, left (Chronic) I44.7 Edema R60.9 Memory loss R41.3 Shortness of breath R06.02 Syncope and collapse R55 Allergies No Known Allergies Allergy (Verified 07/31/18 23:57) Home Medications: Ambulatory Orders Medication Instructions Recorded levothyroxine 75 mcg capsule 75 mcg PO QDAY cap 11/07/17 Latanoprost 0.005% [Xalatan 1 drop EACH EYE QHS 07/31/18 Opthalmic] Metoprolol Succinate [Toprol Xl] 50 mg PO QHS 08/01/18 Acetaminophen [Tylenol] 1,000 mg PO Q8H PRN PRN #180 tablet 08/03/18 Oxycodone [Oxyir] 5 mg PO Q4H PRN PRN 5 Days #10 08/03/18 tablet Atorvastatin Calcium [Lipitor] 10 mg PO QDAY 08/04/18 Bisacodyl [Dulcolax] 10 mg RECTAL DAILY PRN PRN suppos. 08/04/18 Docusate Sodium [Colace] 200 mg PO BID 08/04/18 Mupirocin [Bactroban] 1 applic TOPICAL BID 08/04/18 Polyethylene Glycol 3350 [Miralax] 17 gm PO DAILY 08/04/18 Warfarin [Coumadin] 3 mg PO SUSA #1 08/04/18 Warfarin [Coumadin] 5 mg PO MOTUWETHFR #0 08/04/18 Surgical History: Surgical History (Last Reviewed 08/01/18 @ 00:55 by Fabian Elizabeth MD) History of craniotomy (Chronic) Z98.890 09/13/08 for 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 Presence of permanent cardiac pacemaker (Chronic) Z95.0 Permanent Pacemaker insertion, single chamber 10/17/15, [employer] S/P PTCA (percutaneous transluminal coronary angioplasty) (Chronic) Z98.61 09/21/2004 @ [facility] per Dr. 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 Psychiatric History: No pertinent psych hx Lives: With Family Smoking Status: Former smoker Tobacco Use: Non-smoker Alcohol: None Drugs: None - *Family History Maternal Family History: Family History (Last Reviewed 08/01/18 @ 00:55 by Fabian Elizabeth MD) Father CAD (coronary artery disease) Myocardial infarction Sudden cardiac Mother No problems noted. Uncle CAD (coronary artery disease) Sudden cardiac Myocardial infarction Other Heart disease History Items: No pertinent history Paternal Family History: Family History (Last Reviewed 08/01/18 @ 00:55 by Fabian Elizabeth MD) Father CAD (coronary artery disease) Myocardial infarction Sudden cardiac Mother No problems noted. Uncle CAD (coronary artery disease) Sudden cardiac Myocardial infarction Other Heart disease History Items: - - father had mi at age 69 Review of Systems Constitutional: Denies: Chills, Fever, Weight Change HEENT: Denies: Head Aches, Sinus Congestion, Sinus Drainage Cardiovascular: Denies: Chest Pain, Palpitations Respiratory: Denies: Cough, Shortness of breath at rest, Sputum production Gastrointestinal: Denies: Abdominal Pain, Nausea, Vomiting Genitourinary: Denies: Dysuria Musculoskeletal: Denies: Joint Pain, Joint Tenderness Skin: Denies: Rash, Wounds Neurological: Denies: Numbness, Tingling, Focal weakness Psychiatric: Denies: Anxiety, Depression, Homicidal Ideations, Suicidal Ideations Hematologic/ Lymphatic: Denies: Easy Bruising, Easy Bleeding VTE Information - Inpt Only VTE Present on Admission: No VTE Mechan Device Prophylaxis: Knee High RADHA Hose VTE Pharm Prophylaxis ordered?: No Reason prophylaxis not ordered:: Treatment Not Indicated Patient Problems: Active and Suspected Problems (Last Reviewed 08/01/18 @ 00:55 by Fabian Elizabeth MD) Left hip pain (Acute) Hematoma (Acute) Debility (Acute) - Physical Exam General: Alert, Oriented x3, Cooperative HEENT: Atraumatic, PERRLA, EOMI, Normocephalic Neck: Supple, No JVD, Negative Carotid Bruits Lungs: Clear to auscultation, Normal air movement Cardiovascular: Regular rate, No murmurs Abdomen: Bowel Sounds Present, Soft, Non Tender Extremities: No edema, Capillary Refill Less than 3 Seconds Skin: No rashes, Skin Tear - Left elbow dressed. Musculoskeletal: No Tenderness to Palpation of Joints or Extremities, - - Left hip hematoma. Neurological: Cranial nerves II-XII grossly intact Psych/Mental Status: Normal Affect, Appropriate Vital Signs Temp Pulse Resp BP Pulse Ox 97.3 F L 91 16 108/86 H 98 08/04/18 14:45 08/04/18 14:45 08/04/18 14:45 08/04/18 14:45 08/04/18 14:45 Oxygen Delivery Method Room Air Weight: 75 kg Body Mass Index (BMI) 21.2 Intake and Output for Last 24 Hours 08/02/18 08/03/18 08/04/18 23:59 23:59 23:59 Intake Total 120 / 120 Balance 120 / 120 Assessment/Plan All Active Problems (Last Reviewed 08/01/18 @ 00:55 by Fabian Elizabeth MD) Fall (Acute) Hip pain (Acute) Left hip pain (Acute) Hematoma (Acute) Debility (Acute) Syncope (Resolved) Lower GI bleed (Resolved) 82 year old male with below past medical history hospitalized for fall, left hip pain, unable to ambulate, left hip hematoma, admitted to TCU with debility, here for rehabilitation, strengthening, prior to discharge home with family. Debility - PT/OT. Pain - Tylenol 1000MG Q8H PRN mild pain, Oxycodone 5MG Q4H PRN severe pain. Bowel - Miralax 17GM daily, Senna/colace 1 tablet BID, Dulcolax 10MG [place] daily PRN. Pneumonia vaccination - Administer Prevnar 13 and/or Pneumovax 23 as necessary. DVT prophylaxis - Not necessary, already on warfarin. Hyperlipidemia - Atorvastatin 10MG QHS. Glaucoma - Xalatan 0.005% 1GTT OU QHS. Hypothyroidism - Levothyroxine 75MCG daily. Atrial Fibrillation - Metoprolol succinate 50MG QHS, warfarin 5MG 5 days/week, 3MG 2 days/week. Left elbow skin tear - Bactroban topically BID. Left hip hematoma - Monitor, if it becomes infected, consider antibiotic treatment and/or incision and drainage. Consider holding anticoagulation.
--- NOTE | 2018-08-04 19:48 | HP.PCM_ITS ---
Problem List (1) Left hip pain Status: Acute (2) Hematoma Status: Acute (3) Debility Status: Acute (4) Atrial fibrillation Status: Chronic (5) Coronary artery disease Status: Chronic (6) Glaucoma Status: Chronic (7) Fall Status: Acute (8) Hyperlipidemia Status: Chronic (9) Hypertension Status: Chronic Qualifiers: (10) Osteoarthritis Status: Chronic (11) Hypothyroidism Status: Chronic History of Present Illness Date of Admission: 08/04/18 Chief Complaint: Here for rehabilitation, strengthening, prior to discharge home with family. The patient is a 82 year old Male with below past medical history presented to [facility] Emergency Department 07/31/2018 with trip, fall, left hip pain. Fell on carpet, landed on left hip. On coumadin for atrial fibrillation. X-ray left hip negative for fracture. Unable to walk. 07/31/2018 Admit to Hospital. Vicodin PRN pain, cold compresses PRN. Bactroban left elbow skin tear. 08/01/2018 Orthostasis treated with IV fluids. Left hip pain persists. 08/02/2018 IV fluids for hypotension. 08/03/2018 CT left hip negative fracture. Left gluteal hematoma noted. 08/04/2018 Admit to TCU for rehabilitation, strengthening, prior to discharge home with family. Monitor left hip hematoma. 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 Birmingham: Proximal LAD Chronic atrial fibrillation (Chronic) Supraventricular tachycardia (Chronic) Carotid bruit (Chronic) Presence of permanent cardiac pacemaker (Chronic) Permanent Pacemaker insertion, single chamber 10/17/15, [employer] Bundle branch block, right (Chronic) Hypertension (Chronic) PAF (paroxysmal atrial fibrillation) (Chronic) Osteoarthritis (Chronic) Hypothyroidism (Chronic) S/P PTCA (percutaneous transluminal coronary angioplasty) (Chronic) 09/21/2004 @ [facility] per Dr. Birmingham: Proximal LAD Bundle branch block, left (Chronic) Medical History: Medical History (Last Reviewed 08/01/18 @ 00:55 by Fabian Elizabeth MD) Chronic ectopic atrial tachycardia (Chronic) I47.1 History of syncope (Chronic) Z87.898 History of 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 (Chronic) Z86.79 09/13/2008 alf current use of anticoagulant (Chronic) Z79.01 Premature ventricular contractions (Chronic) I49.3 Hyperlipidemia (Chronic) E78.5 Atherosclerotic heart disease of [place] coronary artery without angina pectoris (Chronic) I25.10 PTCA and FORD 09/21/2004 @ [facility] per Dr. Birmingham: Proximal LAD Chronic atrial fibrillation (Chronic) I48.2 Supraventricular tachycardia (Chronic) I47.1 Carotid bruit (Chronic) R09.89 Bundle branch block, right (Chronic) I45.10 Hypertension (Chronic) I10 PAF (paroxysmal atrial fibrillation) (Chronic) I48.0 Hypothyroidism (Chronic) E03.9 Bundle branch block, left (Chronic) I44.7 Edema R60.9 Memory loss R41.3 Shortness of breath R06.02 Syncope and collapse R55 Allergies No Known Allergies Allergy (Verified 07/31/18 23:57) Home Medications: Ambulatory Orders Medication Instructions Recorded levothyroxine 75 mcg capsule 75 mcg PO QDAY cap 11/07/17 Latanoprost 0.005% [Xalatan 1 drop EACH EYE QHS 07/31/18 Opthalmic] Metoprolol Succinate [Toprol Xl] 50 mg PO QHS 08/01/18 Acetaminophen [Tylenol] 1,000 mg PO Q8H PRN PRN #180 tablet 08/03/18 Oxycodone [Oxyir] 5 mg PO Q4H PRN PRN 5 Days #10 08/03/18 tablet Atorvastatin Calcium [Lipitor] 10 mg PO QDAY 08/04/18 Bisacodyl [Dulcolax] 10 mg RECTAL DAILY PRN PRN suppos. 08/04/18 Docusate Sodium [Colace] 200 mg PO BID 08/04/18 Mupirocin [Bactroban] 1 applic TOPICAL BID 08/04/18 Polyethylene Glycol 3350 [Miralax] 17 gm PO DAILY 08/04/18 Warfarin [Coumadin] 3 mg PO SUSA #1 08/04/18 Warfarin [Coumadin] 5 mg PO MOTUWETHFR #0 08/04/18 Surgical History: Surgical History (Last Reviewed 08/01/18 @ 00:55 by Fabian Elizabeth MD) History of craniotomy (Chronic) Z98.890 09/13/08 for 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 Presence of permanent cardiac pacemaker (Chronic) Z95.0 Permanent Pacemaker insertion, single chamber 10/17/15, [employer] S/P PTCA (percutaneous transluminal coronary angioplasty) (Chronic) Z98.61 09/21/2004 @ [facility] per Dr. 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 Psychiatric History: No pertinent psych hx Lives: With Family Smoking Status: Former smoker Tobacco Use: Non-smoker Alcohol: None Drugs: None - *Family History Maternal Family History: Family History (Last Reviewed 08/01/18 @ 00:55 by Fabian Elizabeth MD) Father CAD (coronary artery disease) Myocardial infarction Sudden cardiac Mother No problems noted. Uncle CAD (coronary artery disease) Sudden cardiac Myocardial infarction Other Heart disease History Items: No pertinent history Paternal Family History: Family History (Last Reviewed 08/01/18 @ 00:55 by Fabian Elizabeth MD) Father CAD (coronary artery disease) Myocardial infarction Sudden cardiac Mother No problems noted. Uncle CAD (coronary artery disease) Sudden cardiac Myocardial infarction Other Heart disease History Items: - - father had mi at age 69 Review of Systems Constitutional: Denies: Chills, Fever, Weight Change HEENT: Denies: Head Aches, Sinus Congestion, Sinus Drainage Cardiovascular: Denies: Chest Pain, Palpitations Respiratory: Denies: Cough, Shortness of breath at rest, Sputum production Gastrointestinal: Denies: Abdominal Pain, Nausea, Vomiting Genitourinary: Denies: Dysuria Musculoskeletal: Denies: Joint Pain, Joint Tenderness Skin: Denies: Rash, Wounds Neurological: Denies: Numbness, Tingling, Focal weakness Psychiatric: Denies: Anxiety, Depression, Homicidal Ideations, Suicidal Ideations Hematologic/ Lymphatic: Denies: Easy Bruising, Easy Bleeding VTE Information - Inpt Only VTE Present on Admission: No VTE Mechan Device Prophylaxis: Knee High RADHA Hose VTE Pharm Prophylaxis ordered?: No Reason prophylaxis not ordered:: Treatment Not Indicated Patient Problems: Active and Suspected Problems (Last Reviewed 08/01/18 @ 00:55 by Fabian Elizabeth MD) Left hip pain (Acute) Hematoma (Acute) Debility (Acute) - Physical Exam General: Alert, Oriented x3, Cooperative HEENT: Atraumatic, PERRLA, EOMI, Normocephalic Neck: Supple, No JVD, Negative Carotid Bruits Lungs: Clear to auscultation, Normal air movement Cardiovascular: Regular rate, No murmurs Abdomen: Bowel Sounds Present, Soft, Non Tender Extremities: No edema, Capillary Refill Less than 3 Seconds Skin: No rashes, Skin Tear - Left elbow dressed. Musculoskeletal: No Tenderness to Palpation of Joints or Extremities, - - Left hip hematoma. Neurological: Cranial nerves II-XII grossly intact Psych/Mental Status: Normal Affect, Appropriate Vital Signs Temp Pulse Resp BP Pulse Ox 97.3 F L 91 16 108/86 H 98 08/04/18 14:45 08/04/18 14:45 08/04/18 14:45 08/04/18 14:45 08/04/18 14:45 Oxygen Delivery Method Room Air Weight: 75 kg Body Mass Index (BMI) 21.2 Intake and Output for Last 24 Hours 08/02/18 08/03/18 08/04/18 23:59 23:59 23:59 Intake Total 120 / 120 Balance 120 / 120 Assessment/Plan All Active Problems (Last Reviewed 08/01/18 @ 00:55 by Fabian Elizabeth MD) Fall (Acute) Hip pain (Acute) Left hip pain (Acute) Hematoma (Acute) Debility (Acute) Syncope (Resolved) Lower GI bleed (Resolved) 82 year old male with below past medical history hospitalized for fall, left hip pain, unable to ambulate, left hip hematoma, admitted to TCU with debility, here for rehabilitation, strengthening, prior to discharge home with family. * Debility - PT/OT. * Pain - Tylenol 1000MG Q8H PRN mild pain, Oxycodone 5MG Q4H PRN severe pain. * Bowel - Miralax 17GM daily, Senna/colace 1 tablet BID, Dulcolax 10MG [place] daily PRN. * Pneumonia vaccination - Administer Prevnar 13 and/or Pneumovax 23 as necessary. * DVT prophylaxis - Not necessary, already on warfarin. * Hyperlipidemia - Atorvastatin 10MG QHS. * Glaucoma - Xalatan 0.005% 1GTT OU QHS. * Hypothyroidism - Levothyroxine 75MCG daily. * Atrial Fibrillation - Metoprolol succinate 50MG QHS, warfarin 5MG 5 days/week, 3MG 2 days/week. * Left elbow skin tear - Bactroban topically BID. * Left hip hematoma - Monitor, if it becomes infected, consider antibiotic treatment and/or incision and drainage. Consider holding anticoagulation.
[2018-08-04 21:54] VITALS: BP 126/70; PULSE 70
[2018-08-04] MEDS: Metoprolol(XL)Succ 50 MG Tablet PO (21:54)
[2018-08-04] MEDS: Atorvastatin Calcium 10 MG Tablet PO (21:54)
[2018-08-04] MEDS: Latanoprost 0.005% 1 Bottle 1 DRP EACH EYE (22:01)
[2018-08-05] MEDS: Levothyroxine 75 MCG Tablet PO (05:30)
[2018-08-05] MEDS: Polyethylene Glycol 3350 17 GM PACKET PO (05:30)
[2018-08-05] MEDS: Mupirocin Ointment 22gm Tube 1 APPLIC TOPICAL ×2 (05:30→17:17)
[2018-08-05] MEDS: Bisacodyl 10 MG Suppository RECTAL (05:37)
[2018-08-05] MEDS: Senna/Docusate Sodium 1 Tablet PO ×2 (05:37→17:14)
[2018-08-05 06:20] LABS: International Normalized Ratio 2.9; Prothrombin Time (Protime)PT. 30.7 SECONDS (11.7-14.9)
[2018-08-05 06:21] LABS: Absolute Lymphocyte Count 1.76 X10^3/ul (0.83-4.51); Absolute Neutrophil Count 8.2 X10^3/uL (2.0-7.7); Basophil# 0.07 X10^3/uL; Basophil% 0.6 % (0-1); Eosinophils% 4.4 % (0-5); Hemoglobin 12.7 g/dl (13.0-16.5); Lymphocyte # 1.76 X10^3/ul (4.0); Lymphocyte % 15.6 % (19-41); Mean Corp Hgb Conc 33.4 g/gl (32-36); Mean Corpuscular Hgb 29.3 pg (27.0-32.0); Mean Corpuscular Volume 87.6 fL (80-94); Mean Platelet Vol. 10.5 fl (6.2-12.0); Monocyte# 0.75 X10^3/uL; Monocyte% 6.6 % (0-10); Neutrophil # 8.19 X10^3/uL (2.7-7.7); Neutrophil % 72.4 % (47-70); Platelet Count 318 K/mm3 (150-450); RBC Distribution Width CV 14.4 % (11.6-14.6); RBC Distribution Width SD 44.9 fl (35.1-43.9); Red Blood Count 4.34 M/mm3 (4.6-6.2); White Blood Count 11.3 K/mm3 (4.4-11.0)
[2018-08-05 06:32] LABS: POSITIVE COUNT NO; POSITIVE DIFFERENTIAL NO; POSITIVE MORPHOLOGY NO
[2018-08-05 06:38] LABS: Anion Gap 8 (5-15); BUN 17 mg/dL (7-18); BUN/Creat Ratio 15.6 RATIO (10-20); Calcium,Total 8.3 mg/dL (8.5-10.1); Chloride 108 mmol/L (98-107); Creatinine, Serum 1.09 mg/dL (0.70-1.30); EST Glomerular Filtration Rate 69 mL/min (>60); Est Glom Filt Rate - Afr Amer 83 mL/min (>60); Estimated Creatinine Clearance 56.38 ml/min; Glucose 89 mg/dL (74-106); Potassium 4.2 mmol/L (3.5-5.1); Sodium Level 140 mmol/L (136-145)
[2018-08-05] MEDS: oxyCODONE 5 MG Tablet PO ×2 (09:39→14:54)
[2018-08-05] MEDS: Tuberculin,Purif.prot.deriv. 50 TU/ML Vial 5 ML ID (10:59)
[2018-08-05] MEDS: Acetaminophen 500 MG Tablet 1000 MG PO (13:22)
[2018-08-05 15:13] VITALS: BP 101/68; PULSE 67; RESP 16; TEMP 36.6; O2SAT 96
--- NOTE | 2018-08-05 15:25 | PCM.PN.RX ---
<LolakapilfarazJohn D - Last Filed: 08/05/18 15:25> Progress Note - Pharmacy Subjective: [] Objective: Allergies No Known Allergies Allergy (Verified 07/31/18 23:57) Current Medications Generic Name Dose Route Start Last Admin Trade Name Freq PRN Reason Stop Dose Admin Acetaminophen 1,000 mg 08/04/18 20:00 08/05/18 13:22 Tylenol PO 1,000 mg Q8H PRN PRN Administration MILD PAIN (1-3/10) Atorvastatin Calcium 10 mg 08/04/18 22:00 08/04/18 21:54 Lipitor PO 10 mg QHS [facility] Administration Bisacodyl 10 mg 08/04/18 14:54 08/05/18 05:37 Dulcolax RECTAL 10 mg DAILY PRN PRN Administration Constipation Latanoprost 1 drop 08/04/18 22:00 08/04/18 22:01 Xalatan Opthalmic EACH EYE 1 drop QHS [facility] Administration Levothyroxine Sodium 75 mcg 08/05/18 06:00 08/05/18 05:30 Synthroid PO 75 mcg DAILY@0600 [facility] Administration Metoprolol Succinate 50 mg 08/04/18 22:00 08/04/18 21:54 Toprol Xl (Beta Long) PO 50 mg QHS [facility] Administration Mupirocin 1 applic 08/04/18 18:00 08/05/18 05:30 Bactroban TOPICAL 1 applicatio BID [facility] Administration Protocol Oxycodone HCl 5 mg 08/04/18 14:54 08/05/18 14:54 Oxyir PO 5 mg Q4H PRN PRN Administration SEVERE PAIN (6-10/10) Polyethylene Glycol 17 gm 08/05/18 06:00 08/05/18 05:30 Miralax PO 17 gm DAILY [facility] Administration Senna/Docusate Sodium 1 tablet 08/05/18 06:00 08/05/18 05:37 Senokot-S, Richa-Colace PO 1 tablet BID [facility] Administration Tuberculin PPD 5 tu 08/12/18 10:00 Tubersol, Aplisol, Ppd ID 08/12/18 10:01 X1 ONE Warfarin Sodium 3 mg 08/09/18 17:00 Coumadin (Pbkc) PO SuSa@1700 [facility] Protocol Warfarin Sodium 5 mg 08/04/18 17:00 08/04/18 16:08 Coumadin (Pbkc) PO Not Given MoTuWeThFr@1700 [facility] Protocol Problem List (Last Reviewed 08/01/18 @ 00:55 by Fabian Elizabeth MD) Left hip pain (Acute) Hematoma (Acute) Debility (Acute) Atrial fibrillation (Chronic) Coronary artery disease (Chronic) Glaucoma (Chronic) Vital Signs Temp Pulse Resp BP Pulse Ox 97.8 F 67 16 101/68 96 08/05/18 15:13 08/05/18 15:13 08/05/18 15:13 08/05/18 15:13 08/05/18 15:13 Oxygen Delivery Method Room Air Weight: 87.572 kg Body Mass Index (BMI) 21.2 Sodium 140 mmol/L (136-145) 08/05/18 05:25 Potassium 4.2 mmol/L (3.5-5.1) 08/05/18 05:25 Chloride 108 mmol/L (98-107) H 08/05/18 05:25 Carbon Dioxide 24.0 mmol/L (21.0-32.0) 08/05/18 05:25 Anion Gap 8 (5-15) 08/05/18 05:25 BUN 17 mg/dL (7-18) 08/05/18 05:25 Creatinine 1.09 mg/dL (0.70-1.30) 08/05/18 05:25 Est GFR (MDRD) Af Amer 83 mL/min (>60) 08/05/18 05:25 Est GFR (MDRD) Non-Af 69 mL/min (>60) 08/05/18 05:25 BUN/Creatinine Ratio 15.6 RATIO (10-20) 08/05/18 05:25 Glucose 89 mg/dL (74-106) 08/05/18 05:25 Assessment/Plan: 1) Pain APAP for mild pain, oxycodone for severe pain. Continue to monitor prn medication use, daily pain scores. 2) AFib Warfarin, metoprolol. Continue to monitor BP/HR, PT/INR, s/s bleeding/clot. 3) HLD Atorvastatin daily. Continue to monitor lipids. 4) Hypothyroidism Levothyroxine daily. Continue to monitor s/s hyper/hypothyroidism. Psychotropic Medications: None Unnecessary Medications: None Bowel Regimen: 5) Senna/s, PEG, prn bisacodyl. Continue to monitor prn medication use, for constipation/diarrhea. Date of Note:: 08/05/18 - Provider Comments Provider responsibility: Provider responsible to enter orders to implement recommendations <Dariusz Gonzalez Chi - Last Filed: 08/05/18 17:48> Progress Note - Pharmacy Subjective: [] Objective: Allergies No Known Allergies Allergy (Verified 07/31/18 23:57) Current Medications Generic Name Dose Route Start Last Admin Trade Name Freq PRN Reason Stop Dose Admin Acetaminophen 1,000 mg 08/04/18 20:00 08/05/18 13:22 Tylenol PO 1,000 mg Q8H PRN PRN Administration MILD PAIN (1-3/10) Atorvastatin Calcium 10 mg 08/04/18 22:00 08/04/18 21:54 Lipitor PO 10 mg QHS [facility] Administration Bisacodyl 10 mg 08/04/18 14:54 08/05/18 05:37 Dulcolax RECTAL 10 mg DAILY PRN PRN Administration Constipation Latanoprost 1 drop 08/04/18 22:00 08/04/18 22:01 Xalatan Opthalmic EACH EYE 1 drop QHS [facility] Administration Levothyroxine Sodium 75 mcg 08/05/18 06:00 08/05/18 05:30 Synthroid PO 75 mcg DAILY@0600 [facility] Administration Metoprolol Succinate 50 mg 08/04/18 22:00 08/04/18 21:54 Toprol Xl (Beta Long) PO 50 mg QHS [facility] Administration Mupirocin 1 applic 08/04/18 18:00 08/05/18 17:17 Bactroban TOPICAL 1 applicatio BID [facility] Administration Protocol Oxycodone HCl 5 mg 08/04/18 14:54 08/05/18 14:54 Oxyir PO 5 mg Q4H PRN PRN Administration SEVERE PAIN (6-10/10) Polyethylene Glycol 17 gm 08/05/18 06:00 08/05/18 05:30 Miralax PO 17 gm DAILY [facility] Administration Senna/Docusate Sodium 1 tablet 08/05/18 06:00 08/05/18 17:14 Senokot-S, Richa-Colace PO 1 tablet BID [facility] Administration Tuberculin PPD 5 tu 08/12/18 10:00 Tubersol, Aplisol, Ppd ID 08/12/18 10:01 X1 ONE Warfarin Sodium 3 mg 08/09/18 17:00 Coumadin (Pbkc) PO SuSa@1700 [facility] Protocol Warfarin Sodium 5 mg 08/04/18 17:00 08/04/18 16:08 Coumadin (Pbkc) PO Not Given MoTuWeThFr@1700 [facility] Protocol Problem List (Last Reviewed 08/01/18 @ 00:55 by Fabian Elizabeth MD) Left hip pain (Acute) Hematoma (Acute) Debility (Acute) Atrial fibrillation (Chronic) Coronary artery disease (Chronic) Glaucoma (Chronic) Vital Signs Temp Pulse Resp BP Pulse Ox 97.8 F 67 16 101/68 96 08/05/18 15:13 08/05/18 15:13 08/05/18 15:13 08/05/18 15:13 08/05/18 15:13 Oxygen Delivery Method Room Air Weight: 87.572 kg Body Mass Index (BMI) 21.2 Sodium 140 mmol/L (136-145) 08/05/18 05:25 Potassium 4.2 mmol/L (3.5-5.1) 08/05/18 05:25 Chloride 108 mmol/L (98-107) H 08/05/18 05:25 Carbon Dioxide 24.0 mmol/L (21.0-32.0) 08/05/18 05:25 Anion Gap 8 (5-15) 08/05/18 05:25 BUN 17 mg/dL (7-18) 08/05/18 05:25 Creatinine 1.09 mg/dL (0.70-1.30) 08/05/18 05:25 Est GFR (MDRD) Af Amer 83 mL/min (>60) 08/05/18 05:25 Est GFR (MDRD) Non-Af 69 mL/min (>60) 08/05/18 05:25 BUN/Creatinine Ratio 15.6 RATIO (10-20) 08/05/18 05:25 Glucose 89 mg/dL (74-106) 08/05/18 05:25 Assessment/Plan: Psychotropic Medications: Unnecessary Medications: Bowel Regimen: - Provider Comments Provider responsibility: Provider responsible to enter orders to implement recommendations Provider Comments to Recommendations by Pharmacy: Agree
--- NOTE | 2018-08-05 15:30 | PHA.CONS_ITS ---
<LolakapilfarazJohn D - Last Filed: 08/05/18 15:25> Progress Note - Pharmacy Subjective: [] Objective: Allergies No Known Allergies Allergy (Verified 07/31/18 23:57) Current Medications Generic Name Dose Route Start Last Admin Trade Name Freq PRN Reason Stop Dose Admin Acetaminophen 1,000 mg 08/04/18 20:00 08/05/18 13:22 Tylenol PO 1,000 mg Q8H PRN PRN Administration MILD PAIN (1-3/10) Atorvastatin Calcium 10 mg 08/04/18 22:00 08/04/18 21:54 Lipitor PO 10 mg QHS [facility] Administration Bisacodyl 10 mg 08/04/18 14:54 08/05/18 05:37 Dulcolax RECTAL 10 mg DAILY PRN PRN Administration Constipation Latanoprost 1 drop 08/04/18 22:00 08/04/18 22:01 Xalatan Opthalmic EACH EYE 1 drop QHS [facility] Administration Levothyroxine Sodium 75 mcg 08/05/18 06:00 08/05/18 05:30 Synthroid PO 75 mcg DAILY@0600 [facility] Administration Metoprolol Succinate 50 mg 08/04/18 22:00 08/04/18 21:54 Toprol Xl (Beta Long) PO 50 mg QHS [facility] Administration Mupirocin 1 applic 08/04/18 18:00 08/05/18 05:30 Bactroban TOPICAL 1 applicatio BID [facility] Administration Protocol Oxycodone HCl 5 mg 08/04/18 14:54 08/05/18 14:54 Oxyir PO 5 mg Q4H PRN PRN Administration SEVERE PAIN (6-10/10) Polyethylene Glycol 17 gm 08/05/18 06:00 08/05/18 05:30 Miralax PO 17 gm DAILY [facility] Administration Senna/Docusate Sodium 1 tablet 08/05/18 06:00 08/05/18 05:37 Senokot-S, Richa-Colace PO 1 tablet BID [facility] Administration Tuberculin PPD 5 tu 08/12/18 10:00 Tubersol, Aplisol, Ppd ID 08/12/18 10:01 X1 ONE Warfarin Sodium 3 mg 08/09/18 17:00 Coumadin (Pbkc) PO SuSa@1700 [facility] Protocol Warfarin Sodium 5 mg 08/04/18 17:00 08/04/18 16:08 Coumadin (Pbkc) PO Not Given MoTuWeThFr@1700 [facility] Protocol Problem List (Last Reviewed 08/01/18 @ 00:55 by Fabian Elizabeth MD) Left hip pain (Acute) Hematoma (Acute) Debility (Acute) Atrial fibrillation (Chronic) Coronary artery disease (Chronic) Glaucoma (Chronic) Vital Signs Temp Pulse Resp BP Pulse Ox 97.8 F 67 16 101/68 96 08/05/18 15:13 08/05/18 15:13 08/05/18 15:13 08/05/18 15:13 08/05/18 15:13 Oxygen Delivery Method Room Air Weight: 87.572 kg Body Mass Index (BMI) 21.2 Sodium 140 mmol/L (136-145) 08/05/18 05:25 Potassium 4.2 mmol/L (3.5-5.1) 08/05/18 05:25 Chloride 108 mmol/L (98-107) H 08/05/18 05:25 Carbon Dioxide 24.0 mmol/L (21.0-32.0) 08/05/18 05:25 Anion Gap 8 (5-15) 08/05/18 05:25 BUN 17 mg/dL (7-18) 08/05/18 05:25 Creatinine 1.09 mg/dL (0.70-1.30) 08/05/18 05:25 Est GFR (MDRD) Af Amer 83 mL/min (>60) 08/05/18 05:25 Est GFR (MDRD) Non-Af 69 mL/min (>60) 08/05/18 05:25 BUN/Creatinine Ratio 15.6 RATIO (10-20) 08/05/18 05:25 Glucose 89 mg/dL (74-106) 08/05/18 05:25 Assessment/Plan: 1) Pain APAP for mild pain, oxycodone for severe pain. Continue to monitor prn medication use, daily pain scores. 2) AFib Warfarin, metoprolol. Continue to monitor BP/HR, PT/INR, s/s bleeding/clot. 3) HLD Atorvastatin daily. Continue to monitor lipids. 4) Hypothyroidism Levothyroxine daily. Continue to monitor s/s hyper/hypothyroidism. Psychotropic Medications: None Unnecessary Medications: None Bowel Regimen: 5) Senna/s, PEG, prn bisacodyl. Continue to monitor prn medication use, for constipation/diarrhea. Date of Note:: 08/05/18 - Provider Comments Provider responsibility: Provider responsible to enter orders to implement recommendations <Dariusz Gonzalez Chi - Last Filed: 08/05/18 17:48> Progress Note - Pharmacy Subjective: [] Objective: Allergies No Known Allergies Allergy (Verified 07/31/18 23:57) Current Medications Generic Name Dose Route Start Last Admin Trade Name Freq PRN Reason Stop Dose Admin Acetaminophen 1,000 mg 08/04/18 20:00 08/05/18 13:22 Tylenol PO 1,000 mg Q8H PRN PRN Administration MILD PAIN (1-3/10) Atorvastatin Calcium 10 mg 08/04/18 22:00 08/04/18 21:54 Lipitor PO 10 mg QHS [facility] Administration Bisacodyl 10 mg 08/04/18 14:54 08/05/18 05:37 Dulcolax RECTAL 10 mg DAILY PRN PRN Administration Constipation Latanoprost 1 drop 08/04/18 22:00 08/04/18 22:01 Xalatan Opthalmic EACH EYE 1 drop QHS [facility] Administration Levothyroxine Sodium 75 mcg 08/05/18 06:00 08/05/18 05:30 Synthroid PO 75 mcg DAILY@0600 [facility] Administration Metoprolol Succinate 50 mg 08/04/18 22:00 08/04/18 21:54 Toprol Xl (Beta Long) PO 50 mg QHS [facility] Administration Mupirocin 1 applic 08/04/18 18:00 08/05/18 17:17 Bactroban TOPICAL 1 applicatio BID [facility] Administration Protocol Oxycodone HCl 5 mg 08/04/18 14:54 08/05/18 14:54 Oxyir PO 5 mg Q4H PRN PRN Administration SEVERE PAIN (6-10/10) Polyethylene Glycol 17 gm 08/05/18 06:00 08/05/18 05:30 Miralax PO 17 gm DAILY [facility] Administration Senna/Docusate Sodium 1 tablet 08/05/18 06:00 08/05/18 17:14 Senokot-S, Richa-Colace PO 1 tablet BID [facility] Administration Tuberculin PPD 5 tu 08/12/18 10:00 Tubersol, Aplisol, Ppd ID 08/12/18 10:01 X1 ONE Warfarin Sodium 3 mg 08/09/18 17:00 Coumadin (Pbkc) PO SuSa@1700 [facility] Protocol Warfarin Sodium 5 mg 08/04/18 17:00 08/04/18 16:08 Coumadin (Pbkc) PO Not Given MoTuWeThFr@1700 [facility] Protocol Problem List (Last Reviewed 08/01/18 @ 00:55 by Fabian Elizabeth MD) Left hip pain (Acute) Hematoma (Acute) Debility (Acute) Atrial fibrillation (Chronic) Coronary artery disease (Chronic) Glaucoma (Chronic) Vital Signs Temp Pulse Resp BP Pulse Ox 97.8 F 67 16 101/68 96 08/05/18 15:13 08/05/18 15:13 08/05/18 15:13 08/05/18 15:13 08/05/18 15:13 Oxygen Delivery Method Room Air Weight: 87.572 kg Body Mass Index (BMI) 21.2 Sodium 140 mmol/L (136-145) 08/05/18 05:25 Potassium 4.2 mmol/L (3.5-5.1) 08/05/18 05:25 Chloride 108 mmol/L (98-107) H 08/05/18 05:25 Carbon Dioxide 24.0 mmol/L (21.0-32.0) 08/05/18 05:25 Anion Gap 8 (5-15) 08/05/18 05:25 BUN 17 mg/dL (7-18) 08/05/18 05:25 Creatinine 1.09 mg/dL (0.70-1.30) 08/05/18 05:25 Est GFR (MDRD) Af Amer 83 mL/min (>60) 08/05/18 05:25 Est GFR (MDRD) Non-Af 69 mL/min (>60) 08/05/18 05:25 BUN/Creatinine Ratio 15.6 RATIO (10-20) 08/05/18 05:25 Glucose 89 mg/dL (74-106) 08/05/18 05:25 Assessment/Plan: Psychotropic Medications: Unnecessary Medications: Bowel Regimen: - Provider Comments Provider responsibility: Provider responsible to enter orders to implement recommendations Provider Comments to Recommendations by Pharmacy: Agree
--- NOTE | 2018-08-05 18:06 | NURSING ---
Addendum entered by Lorna Urbano 08/06/18 07:13: Pt refused SSE last HS and this AM. States he does not need anything to make him go that fast. Will update Dr. Gonzalez. Original Note: Pt has c/o difficulty having bowel movements. Dr. Gonzalez notified, NO for soap suds enema x1.
--- NOTE | 2018-08-05 18:08 | NURSING ---
NO to d/c bactroban to elbow d/t area scabbed over.
[2018-08-05] MEDS: Atorvastatin Calcium 10 MG Tablet PO (20:54)
[2018-08-05 20:55] VITALS: BP 123/71; PULSE 116
[2018-08-05] MEDS: Metoprolol(XL)Succ 50 MG Tablet PO (20:55)
[2018-08-05] MEDS: Latanoprost 0.005% 1 Bottle 1 DRP EACH EYE (20:55)
[2018-08-06 05:49] LABS: International Normalized Ratio 2.4; Prothrombin Time (Protime)PT. 26.4 SECONDS (11.7-14.9)
[2018-08-06] MEDS: Senna/Docusate Sodium 1 Tablet PO ×2 (06:31→16:38)
[2018-08-06] MEDS: Polyethylene Glycol 3350 17 GM PACKET PO (06:31)
[2018-08-06] MEDS: Levothyroxine 75 MCG Tablet PO (06:31)
[2018-08-06] MEDS: oxyCODONE 5 MG Tablet PO ×2 (08:53→13:57)
--- NOTE | 2018-08-06 11:44 | PCM.PROGNOTE ---
Patient Problems: Active and Suspected Problems (Last Reviewed 08/01/18 @ 00:55 by Fabian Elizabeth MD) Left hip pain (Acute) Hematoma (Acute) Debility (Acute) Subjective: Patient was consulted to podiatry for thickened, discolored, elongated, painful toenails. Patient says he is unable and cannot safely trim them on his own. He says he used to see a manager media relations in [place], but does not wish to travel that far anymore. He denies any feelings of nausea, vomiting, fever, or chills. - Physical Exam General: Alert, Oriented x3, Cooperative Extremities: No cyanosis, Capillary Refill Less than 3 Seconds, No Calf Tenderness - negative tracey and macias sign, Peripheral Pulses Normal - DP and PT pulses palpable bilateral Skin: - - Nails 1,2,3,4 and 5 of the right and left foot are thickened, discolored, elongated, painful, with the presence of subungual debris. Musculoskeletal: Tenderness - with palpation of aforementioned toenails Neurological: Sensory exam intact to light touch and pain Psych/Mental Status: Normal Affect, Appropriate Vital Signs Temp Pulse Resp BP Pulse Ox 97.8 F 116 H 16 123/71 H 96 08/05/18 15:13 08/05/18 20:55 08/05/18 15:13 08/05/18 20:55 08/05/18 15:13 Oxygen Delivery Method Room Air Weight: 87.572 kg Body Mass Index (BMI) 21.2 Intake and Output for Last 24 Hours 08/04/18 08/05/18 08/06/18 23:59 23:59 23:59 Intake Total 120 / 120 720 / 720 120 / 120 Output Total 300 / 300 600 / 600 Balance 120 / 120 420 / 420 -480 / -480 Laboratory Tests Past 24 Hrs 08/06/18 05:25 PT 26.4 H INR 2.4 Medical Necessity - Tobacco Use Smoking Status: Former smoker Tobacco Use: Non-smoker Assessment/Plan All Active Problems (Last Reviewed 08/01/18 @ 00:55 by Fabian Elizabeth MD) Fall (Acute) Hip pain (Acute) Left hip pain (Acute) Hematoma (Acute) Debility (Acute) Syncope (Resolved) Lower GI bleed (Resolved) Tinea Unguim Pain left toes Pain right toes Patient was carefully examined and evaluated bedside. Nails 1,2,3,4, and 5 of the right and left foot were carefully debrided in length using a nail nipper. This was all done without incident. Patient experienced relief upon debridement. Patient was instructed he can follow up for routine care with [facility] as an out patient if desired. Podiatry can follow this patient on an as needed basis while in house. Thank you for this consult.
[2018-08-06 15:29] VITALS: BP 112/83; PULSE 96; RESP 18; TEMP 36.7; O2SAT 97
[2018-08-06 19:54] VITALS: BP 120/77; PULSE 104
[2018-08-06] MEDS: Metoprolol(XL)Succ 50 MG Tablet PO (19:54)
[2018-08-06] MEDS: Atorvastatin Calcium 10 MG Tablet PO (19:54)
[2018-08-06] MEDS: Latanoprost 0.005% 1 Bottle 1 DRP EACH EYE (19:55)
[2018-08-06] MEDS: Acetaminophen 500 MG Tablet 1000 MG PO (20:03)
[2018-08-07] MEDS: Levothyroxine 75 MCG Tablet PO (05:52)
[2018-08-07] MEDS: Polyethylene Glycol 3350 17 GM PACKET PO (05:52)
[2018-08-07] MEDS: Senna/Docusate Sodium 1 Tablet PO ×2 (05:52→17:00)
[2018-08-07] MEDS: oxyCODONE 5 MG Tablet PO (06:00)
[2018-08-07 06:15] LABS: International Normalized Ratio 2.2; Prothrombin Time (Protime)PT. 24.1 SECONDS (11.7-14.9)
[2018-08-07 07:53] VITALS: BP 76/48; PULSE 81; RESP 16; O2SAT 94
[2018-08-07] MEDS: 0.9% Normal Saline 1,000 ML 999 ML IV (08:19)
[2018-08-07 09:30] VITALS: BP 110/76; RESP 18; O2SAT 98
--- NOTE | 2018-08-07 09:34 | NURSING ---
0830 called to room by therapy. pt very weak, pale color, low BP & oxygen sat, applied 2 liter O2. PT assisted to bed x4 assist, pt unable to stand on legs. dr vanegas notified, new order for 1 liter bolus. 1 liter Given, rechecked BP and oxygen sats much improved. Pt feeling better, feels it may have been the narcotic that was given early AM. Will continue to monitor. Resting in bed, call light in reach.
[2018-08-07 16:11] VITALS: BP 133/93; PULSE 120; RESP 16; TEMP 37.1; O2SAT 95
--- NOTE | 2018-08-07 16:18 | NURSING ---
Lying in bed. Pulse 120's. Asymptomatic. BP 132/93. History of A.fib. Resident states its my A.fib. Dr vanegas to be notified of this.
[2018-08-07] MEDS: Latanoprost 0.005% 1 Bottle 1 DRP EACH EYE (21:22)
[2018-08-07 21:23] VITALS: BP 136/80; PULSE 96
[2018-08-07] MEDS: Atorvastatin Calcium 10 MG Tablet PO (21:23)
[2018-08-07] MEDS: Metoprolol(XL)Succ 50 MG Tablet PO (21:23)
[2018-08-07] MEDS: Acetaminophen 500 MG Tablet 1000 MG PO (21:34)
[2018-08-08] MEDS: Bisacodyl 10 MG Suppository RECTAL (05:10)
[2018-08-08] MEDS: Senna/Docusate Sodium 1 Tablet PO ×2 (05:10→16:35)
[2018-08-08] MEDS: Polyethylene Glycol 3350 17 GM PACKET PO (05:10)
[2018-08-08] MEDS: Levothyroxine 75 MCG Tablet PO (05:10)
[2018-08-08] MEDS: traMADol 50 MG Tablet PO ×2 (05:50→12:16)
[2018-08-08] MEDS: Acetaminophen 500 MG Tablet 1000 MG PO (10:43)
--- NOTE | 2018-08-08 11:58 | CASEMGMT ---
Brief interview for mental status (BIMS) and resident mood interview (PHQ-9) completed on this day. BIMS score 1515. PHQ-9 score 11/12
[2018-08-08 15:27] VITALS: BP 111/76; PULSE 88; RESP 16; TEMP 35.9; O2SAT 93
[2018-08-08] MEDS: Magnesium Citrate 300 ML PO (16:58)
[2018-08-08 22:12] VITALS: BP 115/79; PULSE 105
[2018-08-08] MEDS: Atorvastatin Calcium 10 MG Tablet PO (22:12)
[2018-08-08] MEDS: Latanoprost 0.005% 1 Bottle 1 DRP EACH EYE (22:12)
[2018-08-08] MEDS: Metoprolol(XL)Succ 50 MG Tablet PO (22:12)
[2018-08-09] MEDS: Polyethylene Glycol 3350 17 GM PACKET PO (06:42)
[2018-08-09] MEDS: Senna/Docusate Sodium 1 Tablet PO ×2 (06:42→17:25)
[2018-08-09] MEDS: Levothyroxine 75 MCG Tablet PO (06:42)
[2018-08-09] MEDS: traMADol 50 MG Tablet PO (08:19)
[2018-08-09 15:50] VITALS: BP 137/85; PULSE 112; RESP 18; TEMP 37; O2SAT 97
[2018-08-09 21:25] VITALS: BP 140/98; PULSE 111
[2018-08-09] MEDS: Metoprolol(XL)Succ 50 MG Tablet PO (21:25)
[2018-08-09] MEDS: Atorvastatin Calcium 10 MG Tablet PO (21:25)
[2018-08-09] MEDS: Latanoprost 0.005% 1 Bottle 1 DRP EACH EYE (21:25)
[2018-08-10] MEDS: Levothyroxine 75 MCG Tablet PO (05:31)
[2018-08-10] MEDS: Acetaminophen 500 MG Tablet 1000 MG PO ×2 (08:26→15:12)
[2018-08-10 15:09] VITALS: BP 129/90; PULSE 122; RESP 20; TEMP 36.1
--- NOTE | 2018-08-10 16:41 | NURSING ---
This nurse answered call light to assist pt to restroom, wet dark stain on sheet, pt unaware of being incontinent of stool, pt sat on BSC only to expel small amount of loose stool, yvonne care given, clean brief and pants, denies needs
[2018-08-10 21:00] VITALS: BP 120/85; PULSE 105; RESP 15
[2018-08-10 21:06] VITALS: BP 120/85; PULSE 105
[2018-08-10] MEDS: Metoprolol(XL)Succ 50 MG Tablet PO (21:06)
[2018-08-10] MEDS: Latanoprost 0.005% 1 Bottle 1 DRP EACH EYE (21:06)
[2018-08-10] MEDS: Atorvastatin Calcium 10 MG Tablet PO (21:06)
[2018-08-11] MEDS: Acetaminophen 500 MG Tablet 1000 MG PO (00:36)
[2018-08-11] MEDS: Levothyroxine 75 MCG Tablet PO (05:22)
[2018-08-11 06:18] LABS: International Normalized Ratio 2.5; Prothrombin Time (Protime)PT. 27.1 SECONDS (11.7-14.9)
[2018-08-11] MEDS: traMADol 50 MG Tablet PO (06:37)
[2018-08-11 16:00] VITALS: BP 154/68; PULSE 63; RESP 18; TEMP 36.6; O2SAT 95
[2018-08-11] MEDS: Senna/Docusate Sodium 1 Tablet PO (16:31)
[2018-08-11 21:51] VITALS: BP 130/82; PULSE 88
[2018-08-11] MEDS: Atorvastatin Calcium 10 MG Tablet PO (21:51)
[2018-08-11] MEDS: Latanoprost 0.005% 1 Bottle 1 DRP EACH EYE (21:51)
[2018-08-11] MEDS: Metoprolol(XL)Succ 50 MG Tablet PO (21:51)
[2018-08-12] MEDS: Senna/Docusate Sodium 1 Tablet PO (05:28)
[2018-08-12] MEDS: Polyethylene Glycol 3350 17 GM PACKET PO (05:28)
[2018-08-12] MEDS: Levothyroxine 75 MCG Tablet PO (05:28)
[2018-08-12 06:13] LABS: Absolute Lymphocyte Count 1.31 X10^3/ul (0.83-4.51); Absolute Neutrophil Count 6.8 X10^3/uL (2.0-7.7); Basophil# 0.08 X10^3/uL; Basophil% 0.8 % (0-1); Eosinophil# 0.53 X10^3/uL; Eosinophils% 5.5 % (0-5); Hematocrit 40.1 % (40-54); Hemoglobin 13.4 g/dl (13.0-16.5); Lymphocyte # 1.31 X10^3/ul (4.0); Lymphocyte % 13.5 % (19-41); Mean Corp Hgb Conc 33.4 g/gl (32-36); Mean Corpuscular Hgb 29.9 pg (27.0-32.0); Mean Corpuscular Volume 89.5 fL (80-94); Mean Platelet Vol. 10.1 fl (6.2-12.0); Monocyte# 0.84 X10^3/uL; Monocyte% 8.7 % (0-10); Neutrophil # 6.84 X10^3/uL (2.7-7.7); Neutrophil % 70.6 % (47-70); Platelet Count 340 K/mm3 (150-450); RBC Distribution Width CV 15.7 % (11.6-14.6); RBC Distribution Width SD 50.3 fl (35.1-43.9); Red Blood Count 4.48 M/mm3 (4.6-6.2); White Blood Count 9.7 K/mm3 (4.4-11.0)
[2018-08-12 06:15] LABS: POSITIVE COUNT NO; POSITIVE DIFFERENTIAL NO; POSITIVE MORPHOLOGY NO
[2018-08-12 06:44] LABS: Anion Gap 10 (5-15); BUN 23 mg/dL (7-18); BUN/Creat Ratio 18.7 RATIO (10-20); Calcium,Total 8.9 mg/dL (8.5-10.1); Chloride 104 mmol/L (98-107); Creatinine, Serum 1.23 mg/dL (0.70-1.30); EST Glomerular Filtration Rate 60 mL/min (>60); Est Glom Filt Rate - Afr Amer 73 mL/min (>60); Estimated Creatinine Clearance 54.76 ml/min; Glucose 84 mg/dL (74-106); Potassium 4.2 mmol/L (3.5-5.1); Sodium Level 140 mmol/L (136-145)
[2018-08-12] MEDS: Acetaminophen 500 MG Tablet 1000 MG PO ×2 (08:36→21:08)
[2018-08-12 16:00] VITALS: BP 128/99; PULSE 100; RESP 16; TEMP 36.3; O2SAT 95
--- NOTE | 2018-08-12 17:50 | NURSING ---
PT returned from [facility] at this time,
[2018-08-12] MEDS: Tuberculin,Purif.prot.deriv. 50 TU/ML Vial 5 ML ID (18:13)
[2018-08-12] MEDS: Latanoprost 0.005% 1 Bottle 1 DRP EACH EYE (21:04)
[2018-08-12 21:06] VITALS: BP 148/83; PULSE 82
[2018-08-12] MEDS: Atorvastatin Calcium 10 MG Tablet PO (21:06)
[2018-08-12] MEDS: Metoprolol(XL)Succ 50 MG Tablet PO (21:06)
[2018-08-13] MEDS: Levothyroxine 75 MCG Tablet PO (05:54)
[2018-08-13] MEDS: Acetaminophen 500 MG Tablet 1000 MG PO ×2 (05:54→21:26)
[2018-08-13] MEDS: Senna/Docusate Sodium 1 Tablet PO (05:54)
[2018-08-13] MEDS: Polyethylene Glycol 3350 17 GM PACKET PO (05:55)
--- NOTE | 2018-08-13 09:06 | CASEMGMT ---
Plan of care meeting held. Resident present as well as resident family. No discharge date set at this time. Resident to continue with further care and treatment on the Transitional Care Unit. Resident plans to discharge to home with daughter and grandson at time of discharge. Support given. Will continue to follow. TIFFANIE Molina, SYSTEM SAFETY ENGINEER
[2018-08-13 15:27] VITALS: BP 138/92; PULSE 60; RESP 18; TEMP 36.6; O2SAT 97
[2018-08-13] MEDS: Latanoprost 0.005% 1 Bottle 1 DRP EACH EYE (21:18)
[2018-08-13 21:21] VITALS: BP 108/64; PULSE 80
[2018-08-13] MEDS: Atorvastatin Calcium 10 MG Tablet PO (21:21)
[2018-08-13] MEDS: Metoprolol(XL)Succ 50 MG Tablet PO (21:21)
[2018-08-14] MEDS: Senna/Docusate Sodium 1 Tablet PO ×2 (05:27→16:40)
[2018-08-14] MEDS: Levothyroxine 75 MCG Tablet PO (05:27)
[2018-08-14] MEDS: Polyethylene Glycol 3350 17 GM PACKET PO (05:27)
[2018-08-14] MEDS: Acetaminophen 500 MG Tablet 1000 MG PO (05:35)
[2018-08-14 06:18] LABS: Prothrombin Time (Protime)PT. 36.4 SECONDS (11.7-14.9)
[2018-08-14 06:26] LABS: International Normalized Ratio 3.6
--- NOTE | 2018-08-14 08:45 | NURSING ---
Addendum entered by Rossana Tinoco 08/14/18 10:57: Resp panel negative, removed from isolation precautions, Original Note: pt placed in droplet isolation, nasal swab obtained by RT sent to lab, awaiting results.
--- NOTE | 2018-08-14 10:27 | MDS.RN ---
Information for the mds was obtained from review of the clinical record, interview of resident, staff, and direct observation of resident's care.
--- NOTE | 2018-08-14 11:07 | NURSING ---
Dr Gonzalez notified of INR 3.6 today, new order to hold coumadin tonight, recheck INR in AM
[2018-08-14 15:31] VITALS: BP 112/54; PULSE 100; RESP 19; TEMP 36.6; O2SAT 97
--- NOTE | 2018-08-14 17:53 | NURSING ---
Patient tachycardic with HR between 110-130. Denies SOB, chest pain, palpitations or dizzyness. Dr. Gonzalez updated. NO to increase metoprolol to 50mg PO BID.
[2018-08-14 18:00] VITALS: BP 112/54; PULSE 100
[2018-08-14] MEDS: Metoprolol Tartrate 50 MG Tablet PO (18:00)
[2018-08-14] MEDS: Latanoprost 0.005% 1 Bottle 1 DRP EACH EYE (21:24)
[2018-08-14] MEDS: Atorvastatin Calcium 10 MG Tablet PO (21:24)
[2018-08-14 21:28] VITALS: O2SAT 97
[2018-08-15] MEDS: Senna/Docusate Sodium 1 Tablet PO (06:05)
[2018-08-15] MEDS: Polyethylene Glycol 3350 17 GM PACKET PO (06:05)
[2018-08-15] MEDS: Levothyroxine 75 MCG Tablet PO (06:05)
[2018-08-15 06:06] VITALS: BP 132/69; PULSE 78
[2018-08-15] MEDS: Metoprolol Tartrate 50 MG Tablet PO (06:06)
[2018-08-15 06:12] LABS: International Normalized Ratio 3.2
--- NOTE | 2018-08-15 10:05 | NURSING ---
Dr. Gonzalez reviewed INR results, NO to resume coumadin as ordered.
--- NOTE | 2018-08-15 11:02 | CASEMGMT ---
Social Work Spoke with resident in room. Resident requesting for discharge date to be set for 08/15/18. Spoke with team, 08/15/18 is an agreeable date at this time. Physical therapy is recommending for resident to have continued services through outpatient physical therapy at time of discharge. Resident is agreeable to recommendation and requesting for outpatient physical therapy to be set up through [facility]. Resident aware that an order will be faxed to [facility] and then [facility] will contact resident to set up appointment. Resident reporting to have all needed durable medical equipment already set up within the home. Resident notified daughter about discharge date/plan. Resident daughter plans to provide transportation home for resident at time of discharge. Support given. Order faxed to [facility]. Proposed discharge date: 08/15/18 PLAN: Discharge to home with family and outpatient physical therapy. SHERWIN MolinaW, CHAIN MORTISER OPERATOR
[2018-08-15 12:37] VITALS: BP 109/71; PULSE 91; RESP 16; TEMP 36.8; O2SAT 99
--- NOTE | 2018-08-15 12:38 | DCINST_ITS ---
- Discharge Diagnoses Current Active Problems: Current Active and Chronic Problems (Last Reviewed 08/01/18 @ 00:55 by Fabian Elizabeth MD) Left hip pain (Acute) Hematoma (Acute) Debility (Acute) Atrial fibrillation (Chronic) Coronary artery disease (Chronic) Glaucoma (Chronic) You will use the following diet at home:: No restrictions, Regular Your food should be the consistency of: Regular Your liquids should be the consistency of: Regular/Thin Discharge Activity: Return to Normal Activity, May Shower, Use Crutches Weight Bearing Status: Weight bearing as tolerated Call your doctor if you observe: Fever of 101 or Higher, Inability to urinate, Inability to have a bowel movement, Shortness of breath, Chest pain, Uncontrolled pain Allergies/Adverse Reactions: Allergies No Known Allergies Allergy (Verified 07/31/18 23:57) Medications to take at Discharge levothyroxine 75 mcg capsule 75 mcg PO QDAY cap 11/07/17 Latanoprost 0.005% [Xalatan Opthalmic] 1 drop EACH EYE QHS 07/31/18 Acetaminophen [Tylenol] 1,000 mg PO Q8H PRN PRN #180 tablet 08/03/18 Atorvastatin Calcium [Lipitor] 10 mg PO QDAY 08/04/18 Warfarin [Coumadin] 3 mg PO SUSA #1 08/04/18 Warfarin [Coumadin] 5 mg PO MOTUWETHFR #0 08/04/18 Metoprolol Tartrate [Lopressor (beta gualberto)] 50 mg PO BID #60 tablet 08/15/18 Mineral Oil/Petrolatum,White [Eucerin] 1 applic TOPICAL DAILY@2200 jar 08/15/18 Polyethylene Glycol 3350 [Miralax] 17 gm PO DAILY #30 packet 08/15/18 Senna/Docusate Sodium [Senokot-S] 1 tablet PO BID #60 tablet 08/15/18 traMADol [Ultram] 50 mg PO Q6H PRN PRN #30 tab 08/15/18 The following prescriptions were given: traMADol [Ultram] 50 mg PO Q6H PRN PRN #30 tab PRN Reason: Moderate Pain (4-5/10) Polyethylene Glycol 3350 [Miralax] 17 gm PO DAILY #30 packet Metoprolol Tartrate [Lopressor (beta gualberto)] 50 mg PO BID #60 tablet Senna/Docusate Sodium [Senokot-S] 1 tablet PO BID #60 tablet Primary Care Physician: Dariusz Gonzalez Chi, MD [Primary Care Provider] - Please follow up with your Primary Care Physician in: 1 week. Test Results: Test results from this visit will be discussed in further detail at your follow- up appointment, if applicable. Proposed Discharge Date: 08/15/18
--- NOTE | 2018-08-15 12:40 | DS.PCM_ITS ---
Discharge Date and Diagnosis - Problem List Patient Problems: Active and Suspected Problems (Last Reviewed 08/01/18 @ 00:55 by Fabian Elizabeth MD) Left hip pain (Acute) Hematoma (Acute) Debility (Acute) Date of Admission: 08/04/18 Date of Discharge: 08/15/18 - Primary Discharge Diagnosis Active and Suspected Problems (Last Reviewed 08/01/18 @ 00:55 by Fabian Elizabeth MD) Left hip pain (Acute) Hematoma (Acute) Debility (Acute) - Secondary Discharge Diagnosis Chronic Problems (Last Reviewed 08/01/18 @ 00:55 by Fabian Elizabeth MD) Atrial fibrillation (Chronic) Coronary artery disease (Chronic) Glaucoma (Chronic) Chronic ectopic atrial tachycardia (Chronic) History of syncope (Chronic) History of 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 (Chronic) 09/13/2008 History of craniotomy (Chronic) 09/13/08 for 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 watermaster current use of anticoagulant (Chronic) Premature ventricular contractions (Chronic) Hyperlipidemia (Chronic) Atherosclerotic heart disease of [place] coronary artery without angina pectoris (Chronic) PTCA and FORD 09/21/2004 @ [facility] per Dr. [place]: Proximal LAD Chronic atrial fibrillation (Chronic) Supraventricular tachycardia (Chronic) Carotid bruit (Chronic) Presence of permanent cardiac pacemaker (Chronic) Permanent Pacemaker insertion, single chamber 10/17/15, [employer] Bundle branch block, right (Chronic) Hypertension (Chronic) PAF (paroxysmal atrial fibrillation) (Chronic) Osteoarthritis (Chronic) Hypothyroidism (Chronic) S/P PTCA (percutaneous transluminal coronary angioplasty) (Chronic) 09/21/2004 @ [facility] per Dr. [place]: Proximal LAD Bundle branch block, left (Chronic) Hospital Course and Treatment Imaging Results: 08/08/18 15:52 Diet: Regular Diet Is pt able to select menu?: Yes Labs (Last 48 Hours) 08/14/18 08/15/18 05:10 05:25 PT 36.4 H 33.0 H INR 3.6 H* 3.2 Microbiology 08/14/18 05:08 Mucosa - Nasopharyngeal Respiratory Panel (PCR) - Final Operations: None Procedures: None Summary of Care Provided: The patient is a 82 year old Male with below past medical history hospitalized for fall, left hip pain, unable to ambulate, left hip hematoma, admitted to TCU with debility, here for rehabilitation, strengthening, prior to discharge home with family. Discharge home with family, and outpatient physical therapy. Patient Problems: Active and Suspected Problems (Last Reviewed 08/01/18 @ 00:55 by Fabian Elizabeth MD) Left hip pain (Acute) Hematoma (Acute) Debility (Acute) - Physical Exam Vital Signs Temp Pulse Resp BP Pulse Ox 98 F 78 19 H 132/69 H 97 08/14/18 15:31 08/15/18 06:06 08/14/18 15:31 08/15/18 06:06 08/14/18 21:28 Oxygen Delivery Method Room Air Weight: 82.185 kg Body Mass Index (BMI) 21.2 Intake and Output for Last 24 Hours 08/13/18 08/14/18 08/15/18 23:59 23:59 23:59 Intake Total 340 / 340 840 / 840 300 / 300 Output Total 375 / 375 500 / 500 Balance 340 / 340 465 / 465 -200 / -200 Microbiology Past 72 Hours 08/14/18 05:08 Respiratory Panel (PCR) - Final Mucosa - Nasopharyngeal Laboratory Tests Past 24 Hrs 08/15/18 05:25 PT 33.0 H INR 3.2 Discharge Diet: No Restrictions Discharge Activity: Return to Normal Activity, May Shower, Use Crutches Weight Bearing Status: Weight bearing as tolerated Call your doctor if you observe: Fever of 101 or Higher, Inability to urinate, Inability to have a bowel movement, Shortness of breath, Chest pain, Uncontrolled pain Home Medications: Medications to take at Discharge levothyroxine 75 mcg capsule 75 mcg PO QDAY cap 11/07/17 Latanoprost 0.005% [Xalatan Opthalmic] 1 drop EACH EYE QHS 07/31/18 Acetaminophen [Tylenol] 1,000 mg PO Q8H PRN PRN #180 tablet 08/03/18 Atorvastatin Calcium [Lipitor] 10 mg PO QDAY 08/04/18 Warfarin [Coumadin] 3 mg PO SUSA #1 08/04/18 Warfarin [Coumadin] 5 mg PO MOTUWETHFR #0 08/04/18 Metoprolol Tartrate [Lopressor (beta gualberto)] 50 mg PO BID #60 tablet 08/15/18 Mineral Oil/Petrolatum,White [Eucerin] 1 applic TOPICAL DAILY@2200 jar 08/15/18 Polyethylene Glycol 3350 [Miralax] 17 gm PO DAILY #30 packet 08/15/18 Senna/Docusate Sodium [Senokot-S] 1 tablet PO BID #60 tablet 08/15/18 traMADol [Ultram] 50 mg PO Q6H PRN PRN #30 tab 08/15/18 Following Prescrptions Were Given to Patient: traMADol [Ultram] 50 mg PO Q6H PRN PRN #30 tab PRN Reason: Moderate Pain (4-5/10) Polyethylene Glycol 3350 [Miralax] 17 gm PO DAILY #30 packet Metoprolol Tartrate [Lopressor (beta gualberto)] 50 mg PO BID #60 tablet Senna/Docusate Sodium [Senokot-S] 1 tablet PO BID #60 tablet Primary Care Physician: Dariusz Gonzalez Chi, MD [Primary Care Provider] - Please follow up with your Primary Care Physician in: 1 week. Disposition: Home Minutes spent on discharge:: 30 Patient Condition:: Good Medical Necessity - Tobacco Use Smoking Status: Former smoker Tobacco Use: Non-smoker Meaningful Use Info Meaningful Use Diagnoses (Choose all that apply): None applicable
--- OUTSIDE RECORDS SUMMARY | 2018-11-06 07:41 | XMS RPT_ITS ---
:1935 Author Organization [place] Support Name Relationship Address Phone MARK GOOD Unavailable [address] + [place] [address] [employer] Unavailable [address] + [place] [address] S Unavailable Unavailable Unavailable MARK GOOD Unavailable [address] + [place] [address] [employer] Unavailable [address] + [place] [address] S Unavailable Unavailable Unavailable MARK GOOD Unavailable [address] + [place] [address] [employer], NGOZI Unavailable [address] + [place] [address] S Unavailable Unavailable Unavailable MARK GOOD Unavailable [address] + [place] [address] [employer] Unavailable [address] + [place] [address] S Unavailable Unavailable Unavailable MARK GOOD Unavailable [address] + [place] [address] [employer] Unavailable [address] + [place] [address] S Unavailable Unavailable Unavailable MARK GOOD Unavailable [address] + [place] [address] [employer]I Unavailable [address] + [place] [address] S Unavailable Unavailable Unavailable AYLSWORTH, MARK Unavailable [address] + [place] [address] [employer] Unavailable [address] + [place] [address] S Unavailable Unavailable Unavailable AYLSDARA MARK Unavailable [address] + [place] [address] [employer] Unavailable [address] + [place] [address] S Unavailable Unavailable Unavailable AYLSWORTH, MARK Unavailable [address] + [place] [address] [employer] Unavailable [address] + [place] [address] S Unavailable Unavailable Unavailable AYLSDARA, MARK Unavailable [address] + [place] [address] [employer] Unavailable [address] + [place] [address] S Unavailable Unavailable Unavailable AYMIKE MARK Unavailable [address] + [place] [address] [employer] Unavailable [address] + [place] [address] S Unavailable Unavailable Unavailable FLORENTINO MARK Unavailable Unavailable + [place] [address] R Unavailable Unavailable Unavailable AYMIKE MARK Unavailable Unavailable + [place] [address] R Unavailable Unavailable Unavailable AYLSWORTH MARK Unavailable Unavailable + [place] [address] R Unavailable Unavailable Unavailable AYLSWORTH MARK Unavailable Unavailable + [place] [address] R Unavailable Unavailable Unavailable AYLSWORTH MARK Unavailable Unavailable + [place] [address] R Unavailable Unavailable Unavailable AYLSWORTH MARK Unavailable Unavailable + [place] [address] R Unavailable Unavailable Unavailable AYLSDARA MARK Unavailable Unavailable + [place] [address] R Unavailable Unavailable Unavailable MARK GOOD Unavailable Unavailable + R Unavailable Unavailable Unavailable MARK GOOD Unavailable Unavailable + R Unavailable Unavailable Unavailable MARK GOOD Unavailable Unavailable + R Unavailable Unavailable Unavailable MARK GOOD Unavailable Unavailable + [place] [address] R Unavailable Unavailable Unavailable R Unavailable Unavailable Unavailable R Unavailable Unavailable Unavailable R Unavailable Unavailable Unavailable R Unavailable Unavailable Unavailable BLUE GOODE Unavailable [address] + [place] [address] R Unavailable Unavailable Unavailable R Unavailable Unavailable Unavailable R Unavailable Unavailable Unavailable LUCAS GOODBIE Unavailable [address] + [place] [address] R Unavailable Unavailable Unavailable R Unavailable Unavailable Unavailable NGOZI GOOD Unavailable [address] [phone] [place] [address] LUCAS GOODBIE Unavailable [address] + [place] [address] R Unavailable Unavailable Unavailable NGOZI GOOD Unavailable [address] [phone] [place] [address] LUCAS GOODBIE Unavailable [address] + [place] [address] R Unavailable Unavailable Unavailable Care Team Providers Name Role Phone Fabian Elizabeth Admitting Unavailable Fabian Elizabeth Attending Unavailable Carlos, Dariusz Chi Primary Care Unavailable Fabian Elizabeth Consulting Unavailable Carlos, Dariusz Chi Admitting Unavailable Carlos, Dariusz Chi Attending Unavailable Carlos, Dariusz Chi Referring Unavailable Carlos, Dariusz Chi Primary Care Unavailable Buddy Denson Consulting Unavailable Aristeo Lopez Attending Unavailable Yazan Lopezril Referring Unavailable Carlos, Dariusz Chi Primary Care Unavailable Fabian Elizabeth Admitting Unavailable Sergio, Patrice Attending Unavailable Carlos, Dariusz Chi Primary Care Unavailable Patrice Hill Consulting Unavailable Fabian Elizabeth Admitting Unavailable Paintsil, [place] Attending Unavailable Carlos, Dariusz Chi Primary Care Unavailable Paintsil, [place] Consulting Unavailable Carlos, Dariusz Chi Primary Care Unavailable Agyepong, Fabian Admitting Unavailable Patrice Hill Attending Unavailable Carlos, Dariusz Chi Attending Unavailable Carlos, Dariusz Chi Primary Care Unavailable Agalesia Fabian Admitting Unavailable Paintsil, [place] Attending Unavailable Carlos, Dariusz Chi Primary Care Unavailable Paintsil, [place] Consulting Unavailable Emiliana Joseph Attending Unavailable Carlos, Dariusz Chi Referring Unavailable Carlos, Dariusz Chi Attending Unavailable Carlos, Dariusz Chi Referring Unavailable Carlos, Dariusz Chi Primary Care Unavailable John, [place] Attending Unavailable John, Aristeo Referring Unavailable Carlos, Dariusz Chi Primary Care Unavailable Emiliana Joseph Attending Unavailable Carlos, Dariusz Chi Referring Unavailable John, [place] Attending Unavailable John, Aristeo Referring Unavailable Carlos, Dariusz Chi Primary Care Unavailable Carlos, Dariusz Chi Primary Care Unavailable Buddy Amaya Attending Unavailable Agyepong, Fabian Admitting Unavailable Paintsil, [place] Attending Unavailable Carlos, Dariusz Chi Primary Care Unavailable Paintsil, [place] Consulting Unavailable Emiliana Joseph Attending Unavailable Carlos, Dariusz Chi Referring Unavailable John, Aristeo Attending Unavailable Carlos, Dariusz Chi Referring Unavailable Carlos, Dariusz Chi Primary Care Unavailable Saloni Bowie Attending Unavailable Carlos, Dariusz Chi Referring Unavailable Carlos, Dariusz Chi Primary Care Unavailable John, [place] Attending Unavailable John, [place] Referring Unavailable Carlos, Dariusz Chi Primary Care Unavailable John, Aristeo Attending Unavailable John, [place] Referring Unavailable Carlos, Dariusz Chi Primary Care Unavailable John, Aristeo Attending Unavailable Carlos, Dariusz Chi Referring Unavailable Emiliana Joseph Attending Unavailable Carlos, Dariusz Chi Referring Unavailable John, [place] Attending Unavailable John, Aristeo Referring Unavailable Carlos, Dariusz Chi Primary Care Unavailable John, [place] Attending Unavailable Saloni Bowie Referring Unavailable Saloni Boiwe Attending Unavailable Saloni Bowie Referring Unavailable Carlos, [...] Primary Care Unavailable John, Aristeo Attending Unavailable Carlos, Dariusz Chi Primary Care Unavailable John, Aristeo Attending Unavailable Carlos, Dariusz Chi Primary Care Unavailable PROBLEMS PROBLEMS DATE TYPE CONDITION / CODE ATTENDING STATUS SOURCE 09/09/2018 Unknown M62.81 - Muscle Carlos, Dariusz Chi Active [facility] weakness (generalized) Community / M62.81(ICD-10) Hospital Repository 09/09/2018 Unknown R26.2 - Difficulty in Carlos, Dariusz Chi Active [facility] walking, not elsewhere Community classified / Hospital R26.2(ICD-10) Repository 09/04/2018 Unknown I48.0 - Paroxysmal John, [place] Active [facility] atrial fibrillation / Community I48.0(ICD-10) Hospital Repository 08/15/2018 Unknown R53.81 - Other malaise Carlos, Dariusz Chi Active [facility] / R53.81(ICD-10) Community Hospital Repository 08/04/2018 Unknown M25.559 - Pain in [facility], Patrice Active [facility] unspecified hip / Community M25.559(ICD-10) Hospital Repository 06/05/2018 Unknown I10 - Essential John, [place] Active [facility] (primary) hypertension Community / I10(ICD-10) Hospital Repository 06/05/2018 Unknown I48.2 - Chronic atrial John, Aristeo Active [facility] fibrillation / Community I48.2(ICD-10) Hospital Repository 06/05/2018 Unknown Z98.61 - Coronary John, [place] Active [facility] angioplasty status / Community Z98.61(ICD-10) Hospital Repository 06/05/2018 Unknown Z95.0 - Presence of John, Aristeo Active [facility] cardiac pacemaker / Community Z95.0(ICD-10) Hospital Repository 06/05/2018 Unknown I47.1 - John, [place] Active [facility] Supraventricular Community tachycardia / Hospital I47.1(ICD-10) Repository 06/05/2018 Unknown E78.5 - John, [place] Active [facility] Hyperlipidemia, Community unspecified / Hospital E78.5(ICD-10) Repository 03/10/2018 Unknown I25.10 - Bowie Active [facility] Atherosclerotic heart Saloni Reyes [facility] disease [facility] coronary artery Repository without angina pectoris / I25.10(ICD-10) 03/10/2018 Unknown R55 - Syncope and Bowie, Active [facility] collapse / R55(ICD-10) Saloni [facility] Repository 03/10/2018 Unknown R09.89 - Other Bowie, Active [facility] specified symptoms and Saloni [facility] signs involving the Hospital circulatory and Repository respiratory systems / R09.89(ICD-10) 09/17/2017 Unknown E55.9 - Vitamin D Carlos, Dariusz Chi Active [facility] deficiency, Community unspecified / Hospital E55.9(ICD-10) Repository PROCEDURES PROCEDURES No Procedure Records FoundRESULTS RESULTS PROTHROMBIN TIME W/INR Collected: 09/04/2018 Status: F Source: [place] 4:06 PM [facility] REPOSITORY TYPE CODE TESTS RESULT OUT OF RANGE REFERENCE UNITS LAB L300.4150 11.7-14.9 SECONDS High PROTIME 29.1 LAB L300.4200 Normal INR 2.7 Performed By: #### L300.3900 #### [facility] [address] [place], [address] PACEMAKER CHECK Observed: 09/04/2018 Status: F Source: [place] 9:50 AM [facility] REPOSITORY [facility] [address] [place] [address] Pacemaker Check Date of Service: 09/03/181746 MR#: [id number] Acct: [id number] Name: JULIAN JACOB Rep #: [id number] : 1935 From: Emiliana Joseph Age/Sex: 83/M [place] [facility]: Signed Billing Codes PM Device Codes: PM Dev Interrogate (Remot 09/03/18 0001 <Electronically signed by Emiliana Joseph > Date Emiliana Joseph 09/04/18 0950<Electronically signed by Aristeo Lopez MD> Cosigner Signature: Date (if applicable) Aristeo Lopez MD CC: INITAL EVALUATION (1) Observed: 08/28/2018 Status: F Source: [place] - PT 5:46 PM [facility] REPOSITORY [facility] [address] [place] [address] / REHABILITATION SERVICES INITIAL EVALUATION MR#: [id number] Acct: [id number] Name: JULIAN JACOB Rep #: [id number] : 1935 82 From: Sandeep Bryan PT, Cert. T, OCS Referring Dr.: Dariusz Gonzalez MD Status: REG RCR Insurance: MEDICARE PART A B [place] Patient's Visit Information JULIAN JAOCB is a 82 year old M referred [...] to be FAXED BACK to us at [phone] for Medicare purposes. For Medicare only, by signing this I certify the plan of care. Please let me know if there are questions or concerns regarding this plan of care. Physician Signature: Date: <Electronically signed by Sandeep Bryan PT, Cert. MDT, OCS> 08/28/18 1746 CC: Dariusz Gonzalez MD HEATHER Signed PROTHROMBIN TIME W/INR Collected: 08/20/2018 Status: F Source: [place] 10:14 AM [facility] REPOSITORY TYPE CODE TESTS RESULT OUT OF RANGE REFERENCE UNITS LAB L300.4150 11.7-14.9 SECONDS High PROTIME 19.8 LAB L300.4200 Normal INR 1.7 Performed By: #### L300.3900 #### [facility] [address] 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 Birmingham: Proximal LAD Chronic atrial fibrillation (Chronic) Supraventricular tachycardia (Chronic) Carotid bruit (Chronic) Presence of permanent cardiac pacemaker (Chronic) Permanent Pacemaker insertion, single chamber 10/17/15, [employer] Bundle branch block, right (Chronic) Hypertension (Chronic) PAF (paroxysmal atrial fibrillation) (Chronic) Osteoarthritis (Chronic) Hypothyroidism (Chronic) S/P PTCA (percutaneous transluminal coronary angioplasty) (Chronic) 09/21/2004 @ [facility] per Dr. Birmingham: Proximal LAD Bundle [...] DISCHARGE INSTRUCTION Observed: 08/15/2018 Status: F Source: [place] 12:38 PM [facility] REPOSITORY [facility] Medical Records Department [address] [place] [address] Instructions for Home/Discharge Instructions 08/15/18 1236 MR#: [id number] Acct: [id number] Name: JULIAN JACOB Rep #: [id number] : 1935 82 From: Dariusz Gonzalez MD [...] 08/15/2018 Status: F Source: [place] 5:25 AM [facility] REPOSITORY TYPE CODE TESTS RESULT OUT OF RANGE REFERENCE UNITS LAB L300.4150 11.7-14.9 SECONDS High PROTIME 33.0 LAB L300.4200 Normal INR 3.2 Performed By: #### L300.3900 #### [facility] [address] [place], [address] PROTHROMBIN TIME W/INR Collected: 08/14/2018 Status: F Source: [place] 5:10 AM [facility] REPOSITORY TYPE CODE TESTS RESULT OUT OF REFERENCE UNITS RANGE LAB L300.4150 11.7-14.9 SECONDS High PROTIME 36.4 LAB L300.4200 High alert INR 3.6 Result Comment: CRITICAL VALUE VERIFIED. CALLED TO LAYO BIANCHI 08/14/18 0625 Carrie Morgan. RESULTS READ BACK BY SAME . Performed By: #### L300.3900 #### [facility] [address] [place], [address] Observed: 08/14/2018 Status: F Source: [place] RESPIRATORY PANEL 5:08 AM [facility] MOLECULAR REPOSITORY Order Date: 08/14/18 Has pt [...] acid amplification Performed By: #### M100.638 #### [facility] [address] [place], [address] CBC W/DIFF, AUTOMATED Collected: 08/12/2018 Status: F Source: [place] 5:10 AM [facility] REPOSITORY TYPE CODE TESTS RESULT OUT OF [...] Lymph 1.31 Performed By: #### L100.0100 #### [facility] [address] [facility]. [place], [place], [address] BASIC METABOLIC Collected: 08/12/2018 Status: F Source: [place] PROFILE (BMP) 5:10 AM [facility] REPOSITORY TYPE CODE TESTS RESULT OUT OF [...] GAP 10 Performed By: #### L500.2500 #### [facility] [address] [place], [place], [address] PROTHROMBIN TIME W/INR Collected: 08/11/2018 Status: F Source: [place] 5:30 AM [facility] REPOSITORY TYPE CODE TESTS RESULT OUT OF RANGE REFERENCE UNITS LAB L300.4150 11.7-14.9 SECONDS High PROTIME 27.1 LAB L300.4200 Normal INR 2.5 Performed By: #### L300.3900 #### [facility] [place], [place], [address] PROTHROMBIN TIME W/INR Collected: 08/06/2018 Status: F Source: [place] 5:25 AM [facility] REPOSITORY TYPE CODE TESTS RESULT OUT OF RANGE REFERENCE UNITS LAB L300.4150 11.7-14.9 SECONDS High PROTIME 26.4 LAB L300.4200 Normal INR 2.4 Performed By: #### L300.3900 #### [facility] [address] [place], [place], [address] CBC W/DIFF, AUTOMATED Collected: 08/05/2018 Status: F Source: [place] 5:25 AM [facility] REPOSITORY TYPE CODE TESTS RESULT OUT OF [...] Lymph 1.76 Performed By: #### L100.0100 #### [facility] [address] [facility] [address] PROTHROMBIN TIME W/INR Collected: 08/05/2018 Status: F Source: [place] 5:25 AM [facility] REPOSITORY TYPE CODE TESTS RESULT OUT OF RANGE REFERENCE UNITS LAB L300.4150 11.7-14.9 SECONDS High PROTIME 30.7 LAB L300.4200 Normal INR 2.9 Performed By: #### L300.3900 #### [facility] [address] [place], [address] BASIC METABOLIC Collected: 08/05/2018 Status: F Source: [place] PROFILE (BMP) 5:25 AM [facility] REPOSITORY TYPE CODE TESTS RESULT OUT OF [...] GAP 8 Performed By: #### L500.2500 #### [facility] [address] [place], [address] HISTORY AND PHYSICAL Observed: 08/04/2018 Status: F Source: [place] EXAM 7:59 PM [facility] REPOSITORY [facility] Medical Records Department [address] [place] [address] History and Physical 08/04/181942 MR#: [id number] Acct: [id number] Name: JULIAN JACOB Rep #: [id number] : 1935 82 From: Dariusz Gonzalez MD PCP: Carlos ALVARADO,Dariusz Nino Status: ADM IN Y Location: [place] [address] Problem List (1) Left hip pain Status: [...] with below past medical history presented to [facility] Emergency Department 07/31/2018 with trip, fall, [...] of craniotomy (Chronic) 09/13/08 for 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 intermediate current use of anticoagulant (Chronic) Premature ventricular contractions (Chronic) Hyperlipidemia (Chronic) Atherosclerotic heart disease of [place] coronary artery without angina pectoris (Chronic) PTCA and FORD 09/21/2004 @ [facility] per Dr. Birmingham: Proximal LAD Chronic atrial fibrillation (Chronic) Supraventricular tachycardia (Chronic) Carotid bruit (Chronic) Presence of permanent cardiac pacemaker (Chronic) Permanent Pacemaker insertion, single chamber 10/17/15, [employer] Bundle branch block, right (Chronic) Hypertension (Chronic) PAF (paroxysmal atrial fibrillation) (Chronic) Osteoarthritis (Chronic) Hypothyroidism (Chronic) S/P PTCA (percutaneous transluminal coronary angioplasty) (Chronic) 09/21/2004 @ [facility] per Dr. Birmingham: Proximal LAD Bundle branch block, left (Chronic) Medical History: Medical History (Last Reviewed 08/01/18 @ 00:55 by Fabian Elizabeth MD) Chronic ectopic atrial tachycardia (Chronic) I47.1 History of syncope (Chronic) Z87.898 History of 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 (Chronic) Z86.79 09/13/2008 intermediate current use of anticoagulant (Chronic) Z79.01 Premature ventricular contractions (Chronic) I49.3 Hyperlipidemia (Chronic) E78.5 Atherosclerotic heart disease of [place] coronary artery without angina pectoris (Chronic) I25.10 PTCA and FORD 09/21/2004 @ [facility] per Dr. Birmingham: Proximal LAD Chronic [...] Z95.0 Permanent Pacemaker insertion, single chamber 10/17/15, [employer] S/P PTCA (percutaneous transluminal coronary angioplasty) (Chronic) Z98.61 09/21/2004 @ [facility] per Dr. Birmingham: Proximal LAD History [...] daily, Senna/colace 1 tablet BID, Dulcolax 10MG RI daily PRN. * Pneumonia vaccination - Administer [...] 08/04/2018 Status: F Source: [place] 2:37 PM [facility] REPOSITORY [facility] Medical Records Department [address] [place] [address] Discharge Summary 08/04/18 1129 MR#: [id number] Acct: [id number] Name: JULIAN JACOB Rep #: [id number] : 1935 82 From: Patrice Hill MD PCP: Dariusz Gonzalez MD, Chi Status: DIS [facility] Discharge Date and Diagnosis - Problem List [...] of craniotomy (Chronic) 09/13/08 for 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 intermediate current use of anticoagulant (Chronic) Premature ventricular contractions (Chronic) Hyperlipidemia (Chronic) Atherosclerotic heart disease of [place] coronary artery without angina pectoris (Chronic) PTCA and FORD 09/21/2004 @ [facility] per Dr. Birmingham: Proximal LAD Chronic atrial fibrillation (Chronic) Supraventricular tachycardia (Chronic) Carotid bruit (Chronic) Presence of permanent cardiac pacemaker (Chronic) Permanent Pacemaker insertion, single chamber 10/17/15, [employer] Bundle branch block, right (Chronic) Hypertension (Chronic) PAF (paroxysmal atrial fibrillation) (Chronic) Osteoarthritis (Chronic) Hypothyroidism (Chronic) S/P PTCA (percutaneous transluminal coronary angioplasty) (Chronic) 09/21/2004 @ [facility] per Dr. Birmingham: Proximal LAD Bundle [...] Date Recorded By Document 08/04/18 06:14 KJU [id number] 08/04/18 06:25 KJU Orthostatic Vitals Standing -Blood [...] applicable Code Visit Inpatient E AND M: [id number] Disch Hosp 08/04/18 1437 <Electronically signed by Patrice Hill MD> Date Patrice Hill MD Cosigner Signature (if applicable): Date CC: Patrice Hill MD; Dariusz Gonzalez MD Signed TRANSFER TO EXTENDED Observed: 08/04/2018 Status: F Source: [facility] 11:29 AM [facility] REPOSITORY [facility] Medical Records Department [address] [place] [address] Transfer to Extended Care MR#: [id number] Acct: [id number] Name: JULIAN JACOB Rep #: [id number] : 1935 82 From: Patrice Hill MD PCP: Dariusz Gonzalez MD, Chi [facility] (Health Ins. Claim No.) (Day of Discharge to Facility) Certification of patient admission REQUIRED AT TIME OF ADMISSION. I CERTIFY THAT POST-HOSPITAL ECF SERVICES ARE REQUIRED TO BE GIVEN ON AN IN-PATIENT BASIS BECAUSE OF THE ABOVE NAMED PATIENT'S NEED FOR LONG TERM CARE ON A CONTINUING BASIS FOR THE [...] TIME W/INR Collected: 08/04/2018 Status: F Source: [place] 5:24 AM [facility] REPOSITORY TYPE CODE TESTS RESULT OUT OF RANGE REFERENCE UNITS LAB L300.4150 11.7-14.9 SECONDS High PROTIME 31.9 LAB L300.4200 Normal INR 3.1 Performed By: #### L300.3900 #### [facility] [address] [place], [address] TRANSFER TO [facility] Observed: 08/03/2018 Status: F Source: [place] C[facility] 11:58 AM [facility] REPOSITORY [facility] Medical Records Department [address] [place] [address] Transfer to Extended Care MR#: [id number] Acct: [id number] Name: JULIAN JACOB Rep #: [id number] : 1935 82 From: Denisse Wong MD PCP: Carlos ALVARADO,Dariusz Nino Status: ADM IN [facility] (Patient) (Health Ins. Claim No.) (Day of Discharge to Facility) Certification of patient admission REQUIRED AT TIME OF ADMISSION. I CERTIFY THAT POST-HOSPITAL ECF SERVICES ARE REQUIRED TO BE GIVEN ON AN IN-PATIENT BASIS BECAUSE OF THE ABOVE NAMED PATIENT'S NEED FOR LONG TERM CARE ON A CONTINUING BASIS FOR THE [...] DISCHARGE INSTRUCTION Observed: 08/03/2018 Status: F Source: [place] 11:52 AM [facility] REPOSITORY [facility] Medical Records Department [address] [place] [address] Instructions for Home/Discharge Instructions 08/03/18 1148 MR#: [id number] Acct: [id number] Name: JULIAN JACOB Rep #: [id number] : 1935 82 From: Denisse Wong MD [...] Status: F Source: [place] WITHOUT CONTRA 9:35 [facility] REPOSITORY [facility] Imaging Services [address] [place] [address] Extremity Lower without Contra MR#: [id number] Acct: [id number] Name: ARIELARubénMONTYJULIAN Vijay Rep #: [id number] : 1935 M 82 From: Alejandro Marte MD PCP: Dariusz Gonzalez MD, Chi Status: ADM IN Study: Extremity Lower without Contra Date of Exam: 08/03/18 Exam# [id number] Ordering Dr: Denisse Wong MD CT left [...] the left sacroiliac joint with anterior spurring. Mather calcifications of the left proximal iliotibial band [...] CC: Denisse Wong MD; Dariusz Gonzalez MD Clinical Social Work Aide: Signed CBC W/DIFF, AUTOMATED Collected: 08/02/2018 Status: F Source: FERNANDA 7:25 AM [facility] REPOSITORY TYPE CODE TESTS RESULT OUT OF [...] Lymph 1.52 Performed By: #### L100.0100 #### [facility] [address] [place], [place], [address] PROTHROMBIN TIME W/INR Collected: 08/02/2018 Status: F Source: FER[place]DA 7:25 AM [facility] REPOSITORY TYPE CODE TESTS RESULT OUT OF RANGE REFERENCE UNITS LAB L300.4150 11.7-14.9 SECONDS High PROTIME 29.9 LAB L300.4200 Normal INR 2.8 Performed By: #### L300.3900 #### [facility] [address] [place], [place], [address] BASIC METABOLIC Collected: 08/02/2018 Status: F Source: FER[place] PROFILE (BMP) 7:25 AM [facility] REPOSITORY TYPE CODE TESTS RESULT OUT OF [...] GAP 8 Performed By: #### L500.2500 #### [facility] [address] [place], [address] CBC W/DIFF, AUTOMATED Collected: 08/01/2018 Status: F Source: FER[place]DA 1:30 PM [facility] REPOSITORY TYPE CODE TESTS RESULT OUT OF [...] Lymph 1.72 Performed By: #### L100.0100 #### [facility] [address] [place], [place], [address] VITAMIN D,25 HYDROXY Collected: 08/01/2018 Status: F Source: FER[place]DA 5:46 AM [facility] REPOSITORY TYPE CODE TESTS RESULT OUT OF REFERENCE UNITS RANGE LAB L506.1000 29.95-100.01 ng/mL Low Vitamin D 28.9 25-OH Result Comment: Vitamin D 25(OH) Status Range Deficiency <20 ng/mL (50nmol/L) Insuffciency 20 - 30 ng/mL (50 - 75 nmol/L) Sufficiency 30 - 100 ng/mL (75 - 250 nmol/L) Toxicity >100 ng/mL (>250 nmol/L) Performed By: #### L506.1000 #### [facility] [address] 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 Birmingham: Proximal LAD Chronic atrial fibrillation (Chronic) Supraventricular tachycardia (Chronic) Carotid bruit (Chronic) Presence of permanent cardiac pacemaker (Chronic) Permanent Pacemaker insertion, single chamber 10/17/15, [employer] Bundle branch block, right (Chronic) Hypertension (Chronic) PAF (paroxysmal atrial fibrillation) (Chronic) Osteoarthritis (Chronic) Hypothyroidism (Chronic) S/P PTCA (percutaneous transluminal coronary angioplasty) (Chronic) 09/21/2004 @ [facility] per Dr. 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 Birmingham: Proximal LAD Chronic [...] Z95.0 Permanent Pacemaker insertion, single chamber 10/17/15, [employer]ent[employer] S/P PTCA (percutaneous transluminal coronary angioplasty) (Chronic) Z98.61 09/21/2004 @ [facility] per Dr. Birmingham: Proximal LAD History [...] necessary. Code Visit OBSV E AND M: [id number] Initial observation care L3 08/01/18 0308 <Electronically signed by Fabian Elizabeth MD> Date Fabian Elizabeth MD [facility] Signature: Date (if applicable) CC: Fabian Elizabeth MD; Dariusz Gonzalez MD Signed CBC-COMPLETE BLOOD CNT Collected: 08/01/2018 Status: F Source: [place] NO DIFF 12:53 AM [facility] REPOSITORY TYPE CODE TESTS RESULT OUT OF [...] MPV 9.7 Performed By: #### L100.0500 #### [facility] [address] [place], [place], [address] PROTHROMBIN TIME W/INR Collected: 08/01/2018 Status: F Source: FER[place] 12:53 AM [facility] REPOSITORY TYPE CODE TESTS RESULT OUT OF RANGE REFERENCE UNITS LAB L300.4150 11.7-14.9 SECONDS High PROTIME 26.3 LAB L300.4200 Normal INR 2.4 Performed By: #### L300.3900 #### [facility] [address] [place], [address] BASIC METABOLIC Collected: 08/01/2018 Status: F Source: MCGEE PROFILE (BMP) 12:53 AM [facility] REPOSITORY TYPE CODE TESTS RESULT OUT OF [...] GAP 8 Performed By: #### L500.2500 #### [facility] [address] [place], [address] EMERGENCY DEPARTMENT Observed: 07/31/2018 Status: F Source: MCGEE SUMMARY 11:19 PM [facility] REPOSITORY [facility] Medical Records Department [address] [place] [address] Emergency Department Summary 07/31/182043 MR#: [id number] Acct: [id number] Name: JULIAN JACOB Rep #: [id number] : 1935 82 From: Pepe Oshea MD [...] clinically warranted This note was generated with [employer]ation software. It may contain incorrect words, spelling, [...] your Primary Care Provider. Call [facility] ([phone]) or report to the closest Emergency Room. Call 911 if necessary. 07/31/18 2319 <Electronically signed by Pepe Oshea MD> Date Pepe Oshea MD Cosigner Signature (If Indicated): Date CC: Dariusz Gonzalez MD DISCHARGE INSTRUCTION Observed: 07/31/2018 Status: F Source: MCGEE 9:45 PM [facility] REPOSITORY [facility] Medical Records Department [address] [place] [address] Discharge Instruction 07/31/182144 MR#: [id number] Acct: [id number] Name: JULIAN JACOB Rep #: [id number] : 1935 82 From: Pepe Oshea MD [...] your Primary Care Provider. Call [facility] ([phone]) or report to the closest Emergency Room. Call 911 if necessary. 07/31/182144 <Electronically signed by Pepe Oshea MD> Date Pepe Oshea MD Cosigner Signature (If Indicated): Date CC: Dariusz Gonzalez MD HIP, UNI W/ PELVIS Observed: 07/31/2018 Status: F Source: [place]ER[place] 2-3 VIEWS 8:44 PM [facility] REPOSITORY [facility] Imaging Services [address] [place] [address] HIP, UNI W/ Pelvis 2-3 Views MR#: [id number] Acct: [id number] Name: JULIAN JACOB Rep #: [id number] : 1935 M 82 From: Claude Hinds MD PCP: Dariusz Gonzalez MD, Chi Status: REG ER Study: HIP, UNI W/ Pelvis 2-3 Views Date of Exam: 07/31/18 Exam# [id number] Ordering Dr: Pepe Oshea MD STUDY: X-RAY [...] CC: MD Yenifer Oshea; Dariusz Gonzalez MD Clinical Social Work Aide: Signed PROTHROMBIN TIME W/INR Collected: 06/24/2018 Status: F Source: FER[place] 2:06 PM [facility] REPOSITORY TYPE CODE TESTS RESULT OUT OF RANGE REFERENCE UNITS LAB L300.4150 11.7-14.9 SECONDS High PROTIME 25.8 LAB L300.4200 Normal INR 2.3 Performed By: #### L300.3900 #### [facility] [address] [place], [place], [address] PROTHROMBIN TIME W/INR Collected: 06/10/2018 Status: F Source: [place] 2:19 PM [facility] REPOSITORY TYPE CODE TESTS RESULT OUT OF RANGE REFERENCE UNITS LAB L300.4150 11.7-14.9 SECONDS High PROTIME 23.5 LAB L300.4200 Normal INR 2.1 Performed By: #### L300.3900 #### [facility] [address] [place], [place], [address] PACEMAKER CHECK Observed: 06/06/2018 Status: F Source: MCGEE 6:58 AM [facility] REPOSITORY [facility] [address] [place] [address] Pacemaker Check Date of Service: 06/05/18 1432 MR#: [id number] Acct: [id number] Name: JULIAN JACOB Rep #: [id number] : 1935 From: Emiliana Joseph Age/Sex: 82/M Location[place] [facility] Status: Signed Billing Codes PM Device Codes: PM Dev Prog Jane, Single 06/05/18 1434 <Electronically signed by Emiliana Joseph > Date Emiliana Joseph 06/06/18 0658<Electronically signed by Aristeo Lopez MD> Cosigner Signature: Date (if applicable) Aristeo Lopez MD CC: CARDIOLOGY VISIT Observed: 06/05/2018 Status: F Source: [place] REPORT 2:48 PM [facility] REPOSITORY [facility] [address] [place] [address] OFFICE VISIT Date of Service: 06/05/18 MR#: [id number] Acct: [id number] Name: JULIAN JACOB Rep #: [id number] : 1935 Provider: Aristeo Lopez MD Age/Sex: 82/M Location[place] [facility] Status: Signed HPI HPI Chief Complaint: Follow [...] Marielle @ 2p (we r/s from 05-29) Tobacco Conditioner Required: No Accompanied by: none Is patient [...] DAILY #90 tab 06/05/18 [Rx Confirmed 06/05/18] [facility] Medical History Chronic ectopic atrial tachycardia (Chronic) History of syncope (Chronic) History of 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 (Chronic) intermediate current use of anticoagulant (Chronic) Premature ventricular contractions (Chronic) Hyperlipidemia (Chronic) Atherosclerotic heart disease of [place] coronary artery without angina pectoris (Chronic) Chronic [...] Z95.0 Permanent Pacemaker insertion, single chamber 10/17/15, [employer] Plan He is status post permanent pacemaker implantation his pacemaker was interrogated today the battery longevity is over 7 years and he is V paced less than 1% of the time. Perhaps increasing his beta-gualberto dose would allow him to be V paced more. 4. S/P PTCA (percutaneous transluminal coronary angioplasty) Z98.61 09/21/2004 @ [facility] per Dr. Birmingham: Proximal LAD Plan [...] 05/27/2018 Status: F Source: [place] 11:28 AM [facility] REPOSITORY TYPE CODE TESTS RESULT OUT OF RANGE REFERENCE UNITS LAB L300.4150 11.7-14.9 SECONDS High PROTIME 21.0 LAB L300.4200 Normal INR 1.8 Performed By: #### L300.3900 #### [facility] [address] [place] [address] [place], [address] STRESS REPORT Observed: 03/31/2018 Status: F Source: [place]ER[place] 4:07 PM [facility] REPOSITORY [facility] Cardiovascular Services [address] [place], [place] [address] [place] [address] MR#: [id number] Acct: [id number] Name: JULIAN JACOB Rep #: [id number] : 1935 82 From: Aristeo Lopez MD [...] MD Date Dictated: 03/31/181600 Date Transcribed: 03/31/181600 Clinical Social Work Aide: CO Signed CARDIOLOGY VISIT Observed: 03/19/2018 Status: F Source: MCGEE REPORT 4:33 PM [facility] REPOSITORY [facility] 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 Atherosclerosis of [place] coronary artery of [place] heart without angina pectoris I25.10 PTCA and FORD 09/21/2004 @ [facility] per Dr. Birmingham: Proximal LAD Plan [...] Z95.0 Permanent Pacemaker insertion, single chamber 10/17/15, [employer] Plan - JESSEE Mckee Pacemaker [...] type R55 Syncope type: unspecified Atherosclerosis of [place] coronary artery of [place] heart without angina pectoris I25.10 [place] vs. transplanted heart: [place] heart Chronic atrial fibrillation I48.2 Presence of permanent cardiac pacemaker Z95.0 Essential hypertension I10 Hypertension type: essential hypertension Coding Level of Care Code Off vis,est,level 4 Diagnoses Syncope, unspecified syncope type R55 Syncope type: unspecified Atherosclerosis of [place] coronary artery of [place] heart without angina pectoris I25.10 [place] vs. transplanted heart: [place] heart Chronic atrial fibrillation I48.2 Presence of permanent cardiac pacemaker Z95.0 Essential hypertension I10 Hypertension type: essential hypertension 03/10/18 1337 <Electronically signed by Saloni HOOKS> Date Saloni HOOKS 03/19/18 1633<Electronically signed by Aristeo Lopez MD> Cosigner Signature: Date (if applicable) Aristeo Lopez MD CC: CAROTID DUPLEX Observed: 03/15/2018 Status: F Source: MCGEE ULTRASOUND 3:03 PM [facility] REPOSITORY [facility] Cardiovascular Services [address] [place] [address] Carotid Duplex Ultrasound 03/13/18 [facility] MR#: [id number] Acct: [id number] Name: JULIAN JACOB Rep #: [id number] : 1935 82 From: Prosper Mauro MD Attending Dr: Saloni Bowie Status: REG CLI Ordering Dr: Saloni Bowie Date: 03/13/18 Location: [facility] Sex: M C Admitted: Reason For Study: [...] the left vertebral artery. Procedure Carotid Duplex 34666. The exam was diagnostic. Exam performed in [...] Dictated: 03/13/18 1024 Date Transcribed: 03/15/18 1502 Clinical Social Work Aide: Signed CBC W/DIFF, AUTOMATED Collected: 03/11/2018 Status: F Source: FER[place]DA 4:10 PM [facility] REPOSITORY TYPE CODE TESTS RESULT OUT OF [...] 1.77 Performed By: #### L100.0100, L101.9900 #### [facility] [address] [place], [address] ERYTHROCYTE SED RATE Collected: 03/11/2018 Status: F Source: MCGEE 4:10 PM [facility] REPOSITORY TYPE CODE TESTS RESULT OUT OF RANGE REFERENCE UNITS LAB L102.0000 0-20 mm/hr Normal SED RATE 7 Performed By: #### L100.0100, L101.9900 #### [facility] [address] [facility] [place], [address] CRP Collected: 03/11/2018 Status: F Source: MCGEE 4:10 PM [facility] REPOSITORY TYPE CODE TESTS RESULT OUT OF RANGE REFERENCE UNITS LAB L501.6710 0.0-3.0 mg/L High 24.70 C-REACTIVE PROT Result Comment: C-Reactive Protein (CRP) provides useful information for the diagnosis, therapy and monitoring of inflammatory processes and associated diseases. For the evaluation of Relative Risk for Cardiovascular Disease, a High Sensitivity CRP (HSCRP) should be ordered. Performed By: #### L501.6710 #### [facility] [address] [facility] [place], [place], [address] CBC W/DIFF, AUTOMATED Collected: 03/10/2018 Status: F Source: MCGEE 11:14 AM [facility] REPOSITORY TYPE CODE TESTS RESULT OUT OF [...] Performed By: #### L100.0100, L500.2500, L501.9520 #### [facility] [address] [place], [address] BASIC METABOLIC Collected: 03/10/2018 Status: F Source: MCGEE PROFILE (BMP) 11:14 AM [facility] REPOSITORY TYPE CODE TESTS RESULT OUT OF [...] Performed By: #### L100.0100, L500.2500, L501.9520 #### [facility] [address] [place], [address] THYROID STIM HORMONE Collected: 03/10/2018 Status: F Source: FER[place]DA (TSH) 11:14 AM [facility] REPOSITORY TYPE CODE TESTS RESULT OUT OF RANGE REFERENCE UNITS LAB L501.9520 0.358-3.74 uIU/mL Normal TSH 1.56 Performed By: #### L100.0100, L500.2500, L501.9520 #### [facility] [address] [place], [address] PROTHROMBIN TIME W/INR Collected: 03/10/2018 Status: F Source: MCGEE 11:14 AM [facility] REPOSITORY Order Comment: Comments: Standing order valid from: 01/15/18 to 01/15/19 Comments: Standing order valid from: 01/15/18 to 01/15/19 TYPE CODE TESTS RESULT OUT OF RANGE REFERENCE UNITS LAB L300.4150 11.7-14.9 SECONDS High PROTIME 28.5 LAB L300.4200 Normal INR 2.7 Performed By: #### L300.3900 #### [facility] [address] [place], [address] PACEMAKER CHECK Observed: 02/25/2018 Status: F Source: FER[place]DA 9:24 AM [facility] REPOSITORY [facility] [place] [address] Pacemaker Check Date of Service: 02/24/18 1752 MR#: [id number] Acct: [id number] Name: JULIAN JACOB Rep #: [id number] : 1935 From: Emiliana Joseph Age/Sex: 82/M [place] [facility] Status: Signed Billing Codes PM Device Codes: PM Dev Interrogate (Remot 02/24/18 175 <Electronically signed by Emiliana Joseph > Date Emiliana Joseph 02/25/18 0924<Electronically signed by Aristeo Lopez MD> Cosigner Signature: Date (if applicable) Aristeo Lopez MD CC: PROTHROMBIN TIME W/INR Collected: 01/10/2018 Status: F Source: FER[place]DA 10:57 AM [facility] REPOSITORY TYPE CODE TESTS RESULT OUT OF RANGE REFERENCE UNITS LAB L300.4150 11.7-14.9 SECONDS High PROTIME 23.7 LAB L300.4200 Normal INR 2.1 Performed By: #### L300.3900 #### [facility] [address] [place], [place], [address] PROTHROMBIN TIME W/INR Collected: 12/09/2017 Status: F Source: FER[place]NDA 10:41 AM [facility] REPOSITORY TYPE CODE TESTS RESULT OUT OF RANGE REFERENCE UNITS LAB L300.4150 11.7-14.9 SECONDS High PROTIME 24.2 LAB L300.4200 Normal INR 2.2 Performed By: #### L300.3900 #### [facility] [address] [place], [place], [address] PACEMAKER CHECK Observed: 12/03/2017 Status: F Source: [place]ER[place]DA 11:02 AM [facility] REPOSITORY [facility] [address] [place] [address] Pacemaker Check Date of Service: 11/21/17 1155 MR#: [id number] Acct: [id number] Name: JULIAN JACOB Rep #: [id number] : 1935 From: Emiliana Joseph Age/Sex: 82/M Location: [facility] Status: Signed Comments Summary Comments: Remote Single [...] Location: remote Interview Reason: scheduled follow up Loader Unloader: [employer] Name: Essentio SR Model: L100 Serial #: [id number] Implant Date: 10/17/15 Year(s): 2 Implant Physician: Dr. Aristeo Lopez Patient Characteristics Atrial Indication: Atrial tachycardia, sick sinus syndrome Patient Substrate: Syncope Ejection fraction %: 60 to 64 (01/07/2015) By: Echo Underlying rhythm: Atrial fibrillation Pacemaker Dependent: No Device Characteristics Device: Single Chamber Type: Pacemaker Remote Follow-Up: [employer] Lead #1 Loader Unloader Lead 1: Guidant Model Lead 1: 4137 Serial# Lead 1: [id number] Date Implanted Lead 1: 10/17/15 Position Lead [...] Z95.0 Permanent Pacemaker insertion, single chamber 10/17/15, [employer] 2. Syncope R55 3. Chronic atrial fibrillation I48.2 4. Supraventricular tachycardia I47.1 5. Right bundle-branch block I45.10 04/14/18 1218 <Electronically signed by Emiliana Joseph > Date Emiliana Joseph 12/03/17 1102<Electronically signed by Aristeo Lopez MD> Cosigner Signature: Date (if applicable) Aristeo Lopez MD CC: PACEMAKER CHECK Observed: 12/03/2017 Status: F Source: FERNANDA 11:02 AM [facility] REPOSITORY [facility] [address] [place] [address] Pacemaker Check Date of Service: 12/02/17 1548 MR#: [id number] Acct: [id number] Name: JULIAN JACOB Rep #: [id number] : 1935 From: Emiliana Joseph Age/Sex: 82/M [place] [facility] Status: Signed Comments Summary Comments: Single Chamber [...] shows atrial fib 84 to 120 bpm. ENGAGEMENT LEAD=<1%. Battery longevity approx 7.5 years. lead impedance, sensing and pace/sense threshold remain stable. No parameter changes made. Counters cleared. Next f/u appt scheduled for in 3 mos. Device Device Date Interviewed: 11/21/17 Follow-up Location: remote, in office Interview Reason: routine follow up Loader Unloader: [employer] Name: Essentio SR Model: L100 Serial #: [id number] Implant Date: 10/17/15 Year(s): 2 Patient Characteristics Atrial Indication: Atrial tachycardia, sick sinus syndrome Patient Substrate: Syncope Ejection fraction %: 60 to 64 By: Echo Underlying rhythm: Atrial fibrillation Pacemaker Dependent: No Device Characteristics Device: Single Chamber Type: Pacemaker Remote Follow-Up: [employer] Lead #1 Loader Unloader Lead 1: Rupali Model Lead 1: 4137 Serial# Lead 1: [id number] Date Implanted Lead 1: 10/17/15 Position Lead [...] Z95.0 Permanent Pacemaker insertion, single chamber 10/17/15, [employer] 2. Syncope R55 3. Supraventricular tachycardia I47.1 4. Chronic atrial fibrillation I48.2 5. Atherosclerotic heart disease of [place] coronary artery without angina pectoris I25.10 PTCA and FORD 09/21/2004 @ [facility] per Dr. Birmingham: Proximal LAD 12/03/17 0925 <Electronically signed by Emiliana Joseph > Date Emiliana Joseph 12/03/17 1102<Electronically signed by Aristeo Lopez MD> [place] Signature: Date (if applicable) Aristeo Lopez MD CC: CARDIOLOGY VISIT Observed: 11/07/2017 Status: F Source: [place]ER[place]DA REPORT 11:53 AM [facility] REPOSITORY [facility] [address] [place] [address] OFFICE VISIT Date of Service: 11/07/17 MR#: [id number] Acct: [id number] Name: JULIAN JACOB Rep #: [id number] : 1935 Provider: Aristeo Lopez MD Age/Sex: 82/M Location: [facility] Status: Signed HPI [facility] Chief Complaint: Follow-up visit. 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) Coding Level of Care Code Off vis,est,level [...] LEAD ELECTROCARDIOGRAM Observed: 09/23/2017 Status: F Source: MCGEE 4:10 PM [facility] REPOSITORY [facility] Cardiovascular Services [address] [place] [address] 12 Lead EKG 09/18/17 1732 MR#: [id number] Acct: [id number] Name: JULIAN JACOB Rep #: [id number] : 1935 82 From: Aristeo Lopez MD [...] ECG Confirmed by ARISTEO LOPEZ MD ([id number]), fan mail editor STEVE REHMAN ([id number]) on 09/23/2017 4:10:08 PM Referred By: MAUREEN Confirmed By:ARISTEO LOPEZ MD 09/23/17 1610 Date Aristeo Lopez MD CC: Buddy Amaya MD; Dariusz Gonzalez MD Signed EMERGENCY DEPARTMENT Observed: 09/18/2017 Status: F Source: MCGEE SUMMARY 9:19 PM [facility] REPOSITORY [facility] Medical Records Department [address] [place] [address] Emergency Department Summary 09/18/17 1702 MR#: [id number] Acct: [id number] Name: JULIAN JACOB Rep #: [id number] : 1935 82 From: Buddy Amaya MD [...] extremity shows no DVT I discussed with analytical laboratory technician. Emergency Department Course and Treatment: Patient [...] A. fib This note was generated with Boomlagoon dictation software. It may contain incorrect words, spelling, and punctuation that were not noted in review of the chart prior to signing ED Disposition - Plan for ED Patient: Chief Complaint: Cellulitis Referrals: aDriusz Gonzalez Chi, MD [Primary Care Provider] - What to do if you have Problems For any increased pain, shortness of breath, bleeding, nausea or vomiting, chest pain, or any unexpected problems, contact your Primary Care Provider. Call [facility] ([phone]) or report to the closest Emergency Room. Call 911 if necessary. 09/18/17 8085 <Electronically signed by Buddy Amaya MD> Date Buddy Amaya MD Cosigner Signature (If Indicated): Date CC: Dariusz Gonzalez MD DISCHARGE INSTRUCTION Observed: 09/18/2017 Status: F Source: [place] 9:19 PM [facility] REPOSITORY [facility] Medical Records Department [address] [place] [address] Discharge Instruction 09/18/172000 MR#: [id number] Acct: [id number] Name: [place] JAC[place] Rep #: [id number] : 1935 82 From: Buddy Amaya MD [...] your Primary Care Provider. Call [facility] ([phone]) or report to the closest Emergency Room. Call 911 if necessary. 09/18/172118 <Electronically signed by Buddy Amaya MD> Date Buddy Amaya MD Cosigner Signature (If Indicated): Date CC: Dariusz Gonzalez MD VENOUS DUPLEX Observed: 09/18/2017 Status: F Source: [place] IMAG/LIMITED/UNI 5:33 PM [facility] REPOSITORY [facility] Imaging Services [address] [place] [address] Venous Duplex Imag/Limited/Uni MR#: [id number] Acct: [id number] Name: J[place] JACOB Rep #: [id number] : 1935 M 82 From: Benji Roth MD PCP: Dariusz Gonzalez MD, Chi Status: REG ER Study: Venous Duplex Imag/Limited/Uni Date of Exam: 09/18/17 Exam# [id number] Ordering Dr: Buddy Amaya MD STUDY: VENOUS [...] CC: Buddy Amaya MD; Dariusz Gonzalez MD Clinical Social Work Aide: Signed CBC W/DIFF, AUTOMATED Collected: 09/18/2017 Status: F Source: [place] 5:13 PM [facility] REPOSITORY TYPE CODE TESTS RESULT OUT OF [...] Lymph 1.64 Performed By: #### L100.0100 #### [facility] [address] [place], [address] PROTHROMBIN TIME W/INR Collected: 09/18/2017 Status: F Source: FER[place] 5:13 PM [facility] REPOSITORY TYPE CODE TESTS RESULT OUT OF RANGE REFERENCE UNITS LAB L300.4150 11.7-14.9 SECONDS High PROTIME 27.1 LAB L300.4200 Normal INR 2.6 Performed By: #### L300.3900 #### [facility] [address] [place], [address] BASIC METABOLIC Collected: 09/18/2017 Status: F Source: [place] PROFILE (BMP) 5:13 PM [facility] REPOSITORY TYPE CODE TESTS RESULT OUT OF [...] GAP 10 Performed By: #### L500.2500 #### [facility] [address] [place], [address] CBC W/DIFF, AUTOMATED Collected: 09/17/2017 Status: F Source: [place] 2:41 PM [facility] REPOSITORY TYPE CODE TESTS RESULT OUT OF [...] Lymph 1.72 Performed By: #### L100.0100 #### [facility] [place], [address] COMPREHENSIVE METABOLIC Collected: 09/17/2017 Status: F Source: [place] PROFIL 2:41 PM [facility] REPOSITORY TYPE CODE TESTS RESULT OUT OF [...] 9 Performed By: #### L500.4050, L501.9520 #### [facility] [address] [place], [address] THYROID STIM HORMONE Collected: 09/17/2017 Status: F Source: [place] (TSH) 2:41 PM [facility] REPOSITORY TYPE CODE TESTS RESULT OUT OF RANGE REFERENCE UNITS LAB L501.9520 0.358-3.74 uIU/mL Normal TSH 2.11 Performed By: #### L500.4050, L501.9520 #### [facility] [address] [place], [address] VITAMIN D,25 HYDROXY Collected: 09/17/2017 Status: F Source: FER[place]DA 2:41 PM [facility] REPOSITORY TYPE CODE TESTS RESULT OUT OF REFERENCE UNITS RANGE LAB L506.1000 19.95-100.01 ng/mL Low Vitamin D 15.4 25-OH Result Comment: Vitamin D 25(OH) Status Range Deficiency <20 ng/mL (50nmol/L) Insuffciency 20 - 30 ng/mL (50 - 75 nmol/L) Sufficiency 30 - 100 ng/mL (75 - 250 nmol/L) Toxicity >100 ng/mL (>250 nmol/L) Performed By: #### L506.1000 #### [facility] [address] [place], [address] ALLERGIES ALLERGIES DATE TYPE / CODE NAME / CODE REACTION SEVERITY SOURCE 07/31/2018 Drug No Known Unknown [facility] Allergy/4160 Allergies/F00 Hospital 77065(SNOMED 7170660(RXNOR Repository CT) M) ENCOUNTERS ENCOUNTERS ADMIT/DISCHARGE ACCOUNT ADMITTING ENCOUNTER LOCATION SOURCE NUMBER CLASS 09/09/2018 [id number] Ambulatory [place] 6 [facility] ing:PT Repository 09/04/2018 [id number] Ambulatory [place] 7 [facility] ing:MTLAB Repository 09/03/2018/ [id number] Ambulatory BMSBuilding:B [place] 9 3 [facility] Repository 08/20/2018 [id number] Ambulatory [place] 2 [facility] ing:MTLAB Repository 08/04/2018/ [id number] Dariusz Gonzalez Chi Inpatient [place] 8 3 Encounter [facility] ing:TCURoom: Repository XSZ26Qbt: 1 08/01/2018 [id number] [place], Ambulatory BMSBuilding:B [place] 8 [place].[facility] Repository 08/01/2018 [id number] [place], Ambulatory BMSBuilding:B [place] 6 [place] [facility] Repository 08/01/2018/ [id number] [place]ep[place], Inpatient [place] 8 6 [place] Encounter [facility] ing:XV3Bzaf: Repository [id number]: 1 08/01/2018 [id number] [place]ep[place], Ambulatory BMSBuilding:B [place] 2 [place] [facility] Repository 07/31/2018 [id number] [place]yep[place], Ambulatory BMSBuilding:B [place] 9 [place] [facility] Repository 07/31/2018 [id number] Agyepong, Ambulatory BMSBuilding:B [place] 0 [place] [facility] Repository 06/24/2018 [id number] Ambulatory [place] 5 [facility] ing:MTLAB Repository 06/10/2018 [id number] Ambulatory [place] 4 [facility] ing:MTLAB Repository 06/05/2018/ [id number] Ambulatory BMSBuilding:B [place] 8 9 [facility] Repository 06/05/2018/ [id number] Ambulatory BMSBuilding:B [place] 8 7 [facility] Repository 05/27/2018 [id number] Ambulatory [place] 9 [facility] ing:MTLAB Repository 03/31/2018 [id number] Ambulatory BMSBuilding:W [place] 7 [facility] Repository 03/31/2018 [id number] Ambulatory [place] 7 [facility] ing:CVS Repository 03/25/2018 [id number] Ambulatory [place] 2 [facility] ing:PSN Repository 03/13/2018 [id number] Ambulatory [place] 3 [facility] ing:CVS Repository 03/11/2018 [id number] Ambulatory [place] 3 [facility] ing:LAB Repository 03/10/2018 [id number] [place] 6 [facility] ing:LAB Repository 03/10/2018/ [id number] Ambulatory BMSBuilding:B [place] 8 6 [facility] Repository 02/24/2018/ [id number] Ambulatory BMSBuilding:B [place] 8 3 [facility] Repository 01/10/2018 [id number] Ambulatory [place] 8 [facility] ing:MTLAB Repository 12/17/2017 [id number] Ambulatory [place] 5 [facility] ing:MTLAB Repository 12/09/2017/ [id number] Ambulatory [place] 8 9 [facility] ing:MTLAB Repository 11/21/2017/ [id number] Ambulatory BMSBuilding:B [place] 8 9 [facility] Repository 11/07/2017/ [id number] Ambulatory BMSBuilding:B [place] 8 0 [facility] Repository 09/18/2017/ [id number] Emergency [place] 8 9 [facility] ing:ED Repository 09/17/2017 [id number] Ambulatory [place] 4 [facility] ing:POLAB3 Repository PAYERS PAYERS ENCOUNTER GUARANTOR 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 SOURCE 09/09/2018 JULIAN H Primary JULIAN H [place] [id number] Insurance:[facility] [id number] Number: Repository [address]Zpx: [phone] [id number] [phone] () Date:2001-08-19 09/09/2018 Secondary JULIAN H [place] [facility] Number: [id number] Hospital [id number] Repository Date[facility] [place] [address]CH: 09/09/2018 Tertiary NOT GIVENUNK [place] Insurance:SELF PAY [facility] Number: Effective Repository Date:2018-08-21 09/04/2018 JULIAN H Primary JULIAN H [place] [id number] Insurance:MEDICARE WILSFORDDOB: [facility] [id number] Number: Repository [address]Mud: 330 [id number] [phone] () Date:2018-09-04 09/04/2018 Secondary JULIAN H [place] Insurance:MCCOY WILSFORDDOB: Community RULEPolicy Number: [id number] Hospital [id number] Repository Date: [facility], [place] [address]DQ: 09/04/2018 Tertiary NOT GIVENUNK [place] Insurance:SELF PAY [facility] Number: Effective Repository Date:2018-09-04 09/03/2018 JULIAN H Primary JULIAN H [place] [id number] Insurance:MEDICARE WILSFORDDOB: Community [place] PART A [facility] [id number]. [facility] [place] Number: Repository [address]Lss: 330 [id number] [phone] () Date:2018-09-03 09/03/2018 Secondary JULIAN H [place] Insurance:MCCOY WILSFORDDOB: Community RULEPolicy Number: [id number] Hospital [id number] Repository Date: [facility], [place] [address]TA: 09/03/2018 Tertiary NOT GIVENUNK [place] Insurance:SELF PAY [facility] Number: Effective Repository Date:2018-09-03 08/20/2018 JULIAN H Primary JULIAN H [place] [id number] Insurance:MEDICARE WILSFORDDOB: Community [place] PART A olic [id number]. [facility] [place] Number: Repository [address]Wru: 330 [id number] [phone] () Date:2018-08-20 08/20/2018 Secondary JULIAN H [place] Insurance:MCCOY WILSFORDDOB: Community RULEPolicy Number: [id number] Hospital [id number] Repository Date: [facility], [place] [address]CP: 08/20/2018 Tertiary NOT GIVENUNK [place] Insurance:SELF PAY [facility] Number: Effective Repository Date:2018-08-20 08/04/2018 JULIAN H Primary JULIAN H [place] [id number] Insurance:MEDICARE WILSFORDDOB: Community [place] PART A [facility] [id number] [place] Number: Repository [address]Hzf: 330 [id number] [phone] () Date:2018-08-04 08/04/2018 Secondary JULIAN H [place] Insurance:MCCOY WILSFORDDOB: [facility] Number: [id number] Hospital [id number] Repository Date: [place], [place] [address]AG: 08/04/2018 Tertiary NOT GIVENUNK [place] Insurance:SELF PAY [facility] Number: Effective Repository Date:2018-08-04 08/01/2018 JULIAN H Primary JULIAN H [place] [id number] Insurance:MEDICARE WILSFORDDOB: [facility] PART A [facility] [id number]. [facility] [place] Number: Repository [address]Ikq: 330 [id number] [phone] () Date:2018-07-31 08/01/2018 Secondary JULIAN H [place] Insurance:MCCOY WILSFORDDOB: [facility] Number: [id number] Hospital [id number] Repository Date: [place], [place] [address]UQ: 08/01/2018 Tertiary NOT GIVENUNK [place] Insurance:SELF PAY [facility] Number: Effective Repository Date:2018-08-01 08/01/2018 JULIAN H Primary JULIAN H [place] [id number] Insurance:MEDICARE WILSFORDDOB: Community [place] PART A [facility] [id number] [facility]view [facility] [place] Number: Repository [address]Fqz: 330 [id number] [phone] () Date:2018-07-31 08/01/2018 Secondary JULIAN H [place] Insurance:MCCOY WILSFORDDOB: Community RULEPolicy Number: [id number] Hospital [id number] Repository Date: [place], [place] [address]DA: 08/01/2018 Tertiary NOT GIVENUNK [place] Insurance:SELF PAY [facility] Number: Effective Repository Date:2018-08-01 08/01/2018 JULIAN H Primary JULIAN H [place] [id number] Insurance:MEDICARE WILSFORDDOB: Community [place] PART A olic [id number], [place] Number: Repository [address]Lfh: 330 [id number] [phone] () Date:2018-07-31 08/01/2018 Secondary JULIAN H [place] Insurance:MCCOY [facility]IL[facility]ORDDOB[facility]: [id number] Hospital [id number] Repository Date: [facility], [place] [address]GW: 08/01/2018 Tertiary NOT GIVENUNK [place] Insurance:SELF PAY [facility] Number: Effective Repository Date:2018-07-31 08/01/2018 JULIAN H Primary JULIAN H [place] [id number] Insurance:MEDICARE WILSFORDDOB: Community [place] PART A [facility] [id number], [place] Number: Repository [address]Wst: 330 [id number] [phone] () Date:2018-07-31 08/01/2018 Secondary JULIAN H [place] Insurance:MCCOY WILSFORDDOB: [facility] [place] Number: [id number] Hospital [id number] Repository Date: [facility], [place] [address]QD: 08/01/2018 Tertiary NOT GIVENUNK [place] Insurance:SELF PAY [facility] Number: Effective Repository Date:2018-08-01 07/31/2018 JULIAN H Primary JULIAN H [place] [id number] Insurance:MEDICARE WILSFORDDOB: Community [place] PART A olicy [id number], [place] Number: Repository [address]Ixo: 330 [id number] [phone] () Date:2018-07-31 07/31/2018 Secondary JULIAN H [place] Insurance:MCCOY WILSFORDDOB: Community RULEPolicy Number: [id number] Hospital [id number] Repository Date: [facility], [place] [address]OS: 07/31/2018 Tertiary NOT GIVENUNK [place] Insurance:SELF PAY [facility] Number: Effective Repository Date:2018-07-31 07/31/2018 JULIAN H Primary JULIAN H [place] [id number] Insurance:MEDICARE WILSFORDDOB: Community [place] PART A olic [id number], [place] Number: Repository [address]Giy: 330 [id number] [phone] () Date:2018-07-31 07/31/2018 Secondary JULIAN H [place] Insurance:MCCOY WILSFORDDOB: [facility] [place] Number: [id number] Hospital [id number] Repository Date: [facility], [place] [address]HL: 07/31/2018 Tertiary NOT GIVENUNK [place] Insurance:SELF PAY [facility] Number: Effective Repository Date:2018-07-31 06/24/2018 JULIAN H Primary JULIAN H [place] [id number] Insurance:MEDICARE WILSFORDDOB: Community [place] PART A olic [id number], [place] Number: Repository [address]Eqh: [phone]) [id number] [phone] () Date:2018-06-24 06/24/2018 Secondary JULIAN H [place] Insurance:MCCOY WILSFORDDOB: [facility] RULEPolicy Number: [id number] Hospital [id number] Repository Date: [facility], [place] [address]EP: 06/24/2018 Tertiary NOT GIVENUNK [place] Insurance:SELF PAY [facility] Number: Effective Repository Date:2018-06-24 06/10/2018 JULIAN H Primary JULIAN H [place] [id number] Insurance:MEDICARE WILSFORDDOB: Community [place] PART A [facility] [id number], [place] Number: Repository [address]Aur: [phone] [id number] [phone] () Date:2018-06-10 06/10/2018 Secondary JULIAN H [place] Insurance:CMCOY WILSFORDDOB: [facility] Number: [id number] Hospital [id number] Repository Date: [place], [place] [address]CE: 06/10/2018 Tertiary NOT GIVENUNK [place] Insurance:SELF PAY [facility] Number: Effective Repository Date:2018-06-10 06/05/2018 JULIAN H Primary JULIAN H [place] [id number] Insurance:MEDICARE WILSFORDDOB: Community [place] PART A [facility] [id number] [facility]view [facility] [place] Number: Repository [address]Mtc: [phone] [id number] [phone] () Date:2017-11-07 06/05/2018 Secondary JULIAN H [place] Insurance:MCCOY WILSFORDDOB: [facility] Number: [id number] Hospital [id number] Repository Date: [place], [place] [address]JS: 06/05/2018 Tertiary NOT GIVENUNK [place] Insurance:SELF PAY [facility] Number: Effective Repository Date:2018-05-22 06/05/2018 JULIAN H Primary JULIAN H [place] [id number] Insurance:MEDICARE WILSFORDDOB: Community [place] PART A [facility] [id number], [place] Number: Repository [address]Cmg: [phone] [id number] [phone] () Date:2017-11-30 06/05/2018 Secondary JULIAN H [place] Insurance:MCCOY WILSFORDDOB: Community RULEPolicy Number: [id number] Hospital [id number] Repository Date: [place] [facility] [place] [address]BF: 06/05/2018 Tertiary NOT GIVENUNK [place] Insurance:SELF PAY [facility] Number: Effective Repository Date:2018-05-22 05/27/2018 JULIAN H Primary JULIAN H [place] [id number] Insurance:MEDICARE WILSFORDDOB: Community [place] PART A [facility] [id number], [place] Number: Repository [address]Yjy: [phone] [id number] [phone] () Date:2018-05-27 05/27/2018 Secondary JULIAN H [place] Insurance:MCCOY WILSFORDDOB: [facility] Number: [id number] Hospital [id number] Repository Date: [facility], [place] [address]NH: 05/27/2018 Tertiary NOT GIVENUNK [place] Insurance:SELF PAY [facility] Number: Effective Repository Date:2018-05-27 03/31/2018 JULIAN H Primary JULIAN H [place] [id number] Insurance:MEDICARE WILSFORDDOB: Community [place] PART A [facility] [id number], [place] Number: Repository [address]Vwi: 330 [id number] [phone] () Date:2018-03-10 03/31/2018 Secondary JULIAN H [place] Insurance:MCCOY WILSFORDDOB: [facility] Number: [id number] Hospital [id number] Repository Date: [facility], [place] [address]BL: 03/31/2018 Tertiary NOT GIVENUNK [place] Insurance:SELF PAY [facility] Number: Effective Repository Date:2018-03-31 03/31/2018 JULIAN H Primary JULIAN H [place] [id number] Insurance:MEDICARE WILSFORDDOB: Community [place] PART A [facility] [id number] Number: Repository [address]Osu: 330 [id number] [phone] () Date:2018-03-10 03/31/2018 Secondary JULIAN H [place] Insurance:MCCOY WILSFORDDOB: [facility] RULEPolicy Number: [id number] Hospital [id number] Repository Date: [facility], [place] [address]TG: 03/31/2018 Tertiary NOT GIVENUNK [place] Insurance:SELF PAY [facility] Number: Effective Repository Date:2018-03-10 03/25/2018 JULIAN H Primary JULIAN H [place] [id number] Insurance:MEDICARE WILSFORDDOB: Community [place] PART A [facility] [id number] [facility] [place] Number: Repository [address]Bha: 330 [id number] [phone] (HP) Date:2018-03-12 03/25/2018 Secondary JULIAN H [place] Insurance:MCCOY [facility]SF[facility]: [facility] Number: [id number] Hospital [id number] Repository Date: [facility], [place] [address]JJ: 03/25/2018 Tertiary NOT GIVENUNK [place] Insurance:SELF PAY [facility] Number: Effective Repository Date:2018-03-12 03/13/2018 JULIAN H Primary JULIAN H [place] [id number] Insurance:MEDICARE WILSFORDDOB: Community [place] PART A [facility] [id number], [place] Number: Repository [address]Sih: 330 [id number] [phone] (HP) Date:2018-03-10 03/13/2018 Secondary JULIAN H [place] Insurance:MCCOY WILSFORDDOB: [facility]LEV[facility] Number: [id number] Hospital [id number] Repository Date: [facility], [place] [address]PD: 03/13/2018 Tertiary NOT GIVENUNK [place] Insurance:SELF PAY [facility] Number: Effective Repository Date:2018-03-10 03/11/2018 JULIAN H Primary JULIAN H [place] [id number] Insurance:MEDICARE WILSFORDDOB: Community [place] PART A [facility] [id number]. [facility] [place] Number: Repository [address]Yud: [phone] [id number] [phone] () Date:2018-03-11 03/11/2018 Secondary JULIAN H [place] Insurance:MCCOY [facility]ITAL[facility]ORDD[facility]: [facility] Number: [id number] Hospital [id number] Repository Date: [place], [place] [address]DT: 03/11/2018 Tertiary NOT GIVENUNK [place] Insurance:SELF PAY [facility] Number: Effective Repository Date:2018-03-11 03/10/2018 JULIAN H Primary JULIAN H [place] [id number] Insurance:MEDICARE WILSFORDDOB: Community [place] PART A [facility] [id number]. [facility] [place] Number: Repository [address]Nvk: [phone] [id number] [phone] () Date:2018-03-10 03/10/2018 Secondary JULIAN H [place] Insurance:MCCOY [facility]ITAL[facility]ORDD[facility]: [facility] Number: [id number] Hospital [id number] Repository Date: [place], [place] [address]UO: 03/10/2018 Tertiary NOT GIVENUNK [place] Insurance:SELF PAY [facility] Number: Effective Repository Date:2018-03-10 03/10/2018 JULIAN H Primary JULIAN H [place] [id number] Insurance:MEDICARE WILSFORDDOB: Community [place] PART A [facility] [id number]. [facility] [place] Number: Repository [address]Kkz: [phone]) [id number] [phone] () Date:2018-03-10 03/10/2018 Secondary JULIAN H [place] Insurance:MCCOY WILSFORDDOB: Community RULEPolicy Number: [id number] Hospital [id number] Repository Date: [place] [facility] [facility] [address]AG: 03/10/2018 Tertiary NOT GIVENUNK [place] Insurance:SELF PAY [facility] Number: Effective Repository Date:2018-03-10 02/24/2018 JULIAN H Primary JULIAN H [place] [id number] Insurance:MEDICARE WILSFORDDOB: Community [place] PART A [facility] [id number] [facility] [place] Number: Repository [address]Fli: [phone]) [id number] [phone] () Date:2017-11-30 02/24/2018 Secondary JULIAN H [place] Insurance:MCCOY [facility]ITAL[facility]ORDD[facility]: [facility] Number: [id number] Hospital [id number] Repository Date: [place] [facility] [place] [id number]: 02/24/2018 Tertiary NOT GIVENUNK [place] Insurance:SELF PAY [facility] Effective Repository Date:2018-02-24 01/10/2018 JULIAN H Primary JULIAN H [place] [id number] Insurance:MEDICARE WILSFORDDOB: Community [place] A [facility] [id number] [place] Number[facility] Repository [address]Bjh: 330 [id number] [phone] () Date:2018-01-10 01/10/2018 Secondary JULIAN H [place] Insurance:MCCOY WILSFORDDOB: [facility] Number: [id number] [facility] [id number] Repository Date: [facility], [place] [address]IX: 01/10/2018 Tertiary NOT GIVENUNK [place] Insurance:SELF PAY [facility] Number: Effective Repository Date:2018-01-10 12/17/2017 JULIAN H Primary JULIAN H [place] [id number] Insurance:MEDICARE WILSFORDDOB: Community [place] A olic [id number] [place] Number[facility] Repository [address]Ekp: 330 [id number] [phone] () Date:2017-02-26 12/17/2017 Secondary JULIAN H [place] Insurance:MCCOY WILSFORDDOB: [facility] [place] Number: [id number] [facility] [id number] Repository Date: [facility], [place] [id number]: 12/17/2017 Tertiary NOT GIVENUNK [place] Insurance:SELF PAY [facility] Number: Effective Repository Date:2017-12-17 12/09/2017 JULIAN H Primary JULIAN H [place] [id number] Insurance:MEDICARE WILSFORDDOB: Community [place] [facility] [id number]. [facility] [place] Number: Repository [id number]: 330 [id number] [phone] () Date:2017-02-26 12/09/2017 Secondary JULIAN H [place] Insurance:MCCOY [facility] Number: [id number] [id number] Repository Date: [facility], [place] [address]AL: 12/09/2017 Tertiary NOT GIVENUNK [place] Insurance:SELF PAY [facility] Number: Effective Repository Date:2017-02-16 11/21/2017 JULIAN H Primary JULIAN H [place] [id number] Insurance:MEDICARE WILSFORDDOB: Community [place] [facility] [id number]. [facility] [place] Number: Repository [address]Fde: 330 [id number] [phone] () Date:2017-08-15 11/21/2017 Secondary JULIAN H [place] Insurance:MCCOY WILSFORDDOB: [facility] Number: [id number] Hospital [id number] Repository Date: [facility], [place] [address]ZH: 11/21/2017 Tertiary NOT GIVENUNK [place] Insurance:SELF PAY [facility] Number: Effective Repository Date:2017-11-21 11/07/2017 JULIAN H Primary JULIAN H [place] [id number] Insurance:MEDICARE WILSFORDDOB: Community [place] PART A [facility] [id number]. [facility] [place] Number: Repository [address]Lyh: [phone] [id number] [phone] () Date:2017-07-28 11/07/2017 Secondary JULIAN H [place] Insurance:MCCOY [facility]: [facility] RULEPolic Number: [id number] Hospital [id number] Repository Date: [facility] [place] [place] [address]SO: 11/07/2017 Tertiary NOT GIVENUNK [place] Insurance:SELF PAY [facility] Number: Effective Repository Date:2017-11-07 09/18/2017 JULIAN H Primary JULIAN H [place] [id number] Insurance:MEDICARE WILSFORDDOB: Community [place] [facility] [id number]. [facility] [place] Number: Repository [address]Saq: [phone] [id number] [phone] () Date:2017-09-18 09/18/2017 Secondary JULIAN H [place] Insurance:MCCOY WILSFORDDOB: [facility] [place] Number: [id number] Hospital [id number] Repository Date: [place], [place] [address]QR: 09/18/2017 Tertiary NOT GIVENUNK [place] Insurance:SELF PAY [facility] Number: Effective Repository Date:2017-09-18 09/17/2017 JULIAN H Primary JULIAN H [place] [id number] Insurance:MEDICARE WILSFORDDOB: Community [place] PART A [facility] [id number]. [facility] [place] Number: Repository [id number]: [phone] [id number] [phone] () Date:2017-09-17 09/17/2017 Secondary JULIAN Michael Insurance:NADINE BOWDENB: [facility] Number: [id number] Hospital [id number] Repository Date: [place] [address]OS: 09/17/2017 Tertiary NOT GIVENUNK [place] Insurance:SELF PAY [facility] Number: Effective Repository Date:2017-09-17
== END 2018-08-15 15:15 | disposition home or self-care (01) | DRG 948 ==
PROVIDERS: Admitting Provider Family Medicine Geriatric Medicine; Family Provider Family Medicine Geriatric Medicine; PCP Family Medicine Geriatric Medicine; Referring Provider Family Medicine Geriatric Medicine; Visit Provider Family Medicine Geriatric Medicine
DX: R53.81 Other malaise (principal); E03.9 Hypothyroidism, unspecified; E78.5 Hyperlipidemia, unspecified; S70.02XD Contusion of left hip, subsequent encounter; W19.XXXD Unspecified fall, subsequent encounter; I48.0 Paroxysmal atrial fibrillation; I25.10 Atherosclerotic heart disease of native coronary artery without angina pectoris; I10 Essential (primary) hypertension; I48.2 Chronic atrial fibrillation; S51.012D Laceration without foreign body of left elbow, subsequent encounter; M19.90 Unspecified osteoarthritis, unspecified site; H40.9 Unspecified glaucoma; Z87.891 Personal history of nicotine dependence; B35.9 Dermatophytosis, unspecified; M79.675 Pain in left toe(s); M79.674 Pain in right toe(s)
CPT/HCPCS: 36415; 80048; 85025; 85610; 87633; 97110; 97116; 97163; 97166; 97530; 97535; 97802; J7030

== ENCOUNTER → 2018-08-20 10:07 | Outpatient (CLI) | payer MEDICARE, OTHER, SELFPAY ==
[2018-08-04 15:48] VITALS: BMI 21.2
[2018-08-20 12:43] LABS: International Normalized Ratio 1.7; Prothrombin Time (Protime)PT. 19.8 SECONDS (11.7-14.9)
== END ==
PROVIDERS: Family Provider Family Medicine Geriatric Medicine; PCP Family Medicine Geriatric Medicine; Referring Provider Internal Medicine Cardiovascular Disease; Visit Provider Internal Medicine Cardiovascular Disease
DX: I48.0 Paroxysmal atrial fibrillation (principal); Z79.01 Long term (current) use of anticoagulants; Z98.61 Coronary angioplasty status
CPT/HCPCS: 36415; 85610

== ENCOUNTER 2018-09-04 17:05 | Outpatient (RCR) | payer MEDICARE, OTHER, SELFPAY ==
[2018-09-03 10:27] VITALS: BMI 21.2
[2018-09-04 17:50] LABS: International Normalized Ratio 2.7; Prothrombin Time (Protime)PT. 29.1 SECONDS (11.7-14.9)
--- OUTSIDE RECORDS SUMMARY | 2018-11-09 12:15 | XMS RPT_ITS ---
:1935 Author Organization [place] Support Name Relationship Address Phone MARK GOOD Unavailable [address] + [place] [address] [employer]YLS[employer]TH -PO[employer], NGOZI Unavailable [address] + [place] [address] S Unavailable Unavailable Unavailable MARK GOOD Unavailable [address] + [place] [address] [employer], NGOZI Unavailable [address] + [place] [address] S Unavailable Unavailable Unavailable MARK GOOD Unavailable [address] + [place] [address] [employer]YLS[employer] -POA, NGOZI Unavailable [address] + [place] [address] S Unavailable Unavailable Unavailable MARK GOOD Unavailable [address] + [place] [address] [employer], NGOZI Unavailable [address] + [place] [address] S Unavailable Unavailable Unavailable MARK GOOD Unavailable [address] + [place] [address] [employer]LS[employer] -PO[employer], NGOZI Unavailable [address] + [place] [address] S Unavailable Unavailable Unavailable MARK GOOD Unavailable [address] + [place] [address] [employer], NGOZI Unavailable [address] + [place] [address] S Unavailable Unavailable Unavailable AYLSWORTH, MARK Unavailable [address] + [place] [address] [employer], NGOZI Unavailable [address] + [place] [address] S Unavailable Unavailable Unavailable AYLSDARA MARK Unavailable [address] + [place] [address] [employer]YLS[employer] -[facility], NOGZI Unavailable [address] + [place] [address] S Unavailable Unavailable Unavailable AYLSWORTH, MARK Unavailable [address] + [place] [address] [employer]YLS[employer] -POA, NGOZI Unavailable [address] + [place] [address] S Unavailable Unavailable Unavailable AYLSDARA, MARK Unavailable [address] + [place] [address] [employer], NGOZI Unavailable [address] + [place] [address] S Unavailable Unavailable Unavailable AYMIKE MARK Unavailable [address] + [place] [address] [employer], NGOZI Unavailable [address] + [place] [address] S Unavailable Unavailable Unavailable FLORENTINO MARK Unavailable Unavailable + [place] [address] R Unavailable Unavailable Unavailable AYMIKE MARK Unavailable Unavailable + [place] [address] R Unavailable Unavailable Unavailable AYLSWORTH MARK Unavailable Unavailable + [place] [address] R Unavailable Unavailable Unavailable AYLSWORTH MARK Unavailable Unavailable + [place] [address] R Unavailable Unavailable Unavailable AYLSWORTH MARK Unavailable Unavailable + [place] [address] R Unavailable Unavailable Unavailable AYLSWORTH MARK Unavailable Unavailable + [place] [address] R Unavailable Unavailable Unavailable AYLSDARA MARK Unavailable Unavailable + [place] [address] R Unavailable Unavailable Unavailable MARK GOOD Unavailable Unavailable + R Unavailable Unavailable Unavailable MARK GOOD Unavailable Unavailable + R Unavailable Unavailable Unavailable MARK GOOD Unavailable Unavailable + R Unavailable Unavailable Unavailable MARK GOOD Unavailable Unavailable + [place] [address] R Unavailable Unavailable Unavailable R Unavailable Unavailable Unavailable R Unavailable Unavailable Unavailable R Unavailable Unavailable Unavailable R Unavailable Unavailable Unavailable BLUE GOODE Unavailable [address] + [place] [address] R Unavailable Unavailable Unavailable R Unavailable Unavailable Unavailable R Unavailable Unavailable Unavailable BLUE GOODE Unavailable [address] + [place] [address] R Unavailable Unavailable Unavailable R Unavailable Unavailable Unavailable DULCENGOZI DIAMOND Unavailable [address] [phone] [place], [place] [address] LUCAS GOODBIE Unavailable [address] + [place] [address] R Unavailable Unavailable Unavailable NGOZI GOOD Unavailable [address] [phone] [place] [address] ANITALUCAS MCKEONBIE Unavailable [address] + [place] [address] R Unavailable Unavailable Unavailable Care Team Providers Name Role Phone [employer], Dariusz Chi Primary Care Unavailable Fabian Elizabeth Admitting Unavailable Sergio, Patrice Attending Unavailable Fabian Elizabeth Admitting Unavailable Fabian [place] Attending Unavailable Carlos, Dariusz Chi Primary Care Unavailable Fabian [place] Consulting Unavailable Fabian [place] Admitting Unavailable Paintsil, Malcom Attending Unavailable Carlos, Dariusz Chi Primary Care Unavailable Paintsil, Malcom Consulting Unavailable Fabian [place] Admitting Unavailable Paintsil, Malcom Attending Unavailable Carlos, Dariusz Chi Primary Care Unavailable Paintsil, Malcom Consulting Unavailable Fabian [place] Admitting Unavailable Paintsil, Malcom Attending Unavailable Carlos, Dariusz Chi Primary Care Unavailable Paintsil, Malcom Consulting Unavailable Fabian [place] Admitting Unavailable Sergio, Patrice Attending Unavailable Carlos, Dariusz Chi Primary Care Unavailable Sergio, Patrice Consulting Unavailable Carlos, Dariusz Chi Admitting Unavailable Carlos, Dariusz Chi Attending Unavailable Carlos, Dariusz Chi Referring Unavailable Carlos, Dariusz Chi Primary Care Unavailable Buddy Denson Consulting Unavailable John, Aristeo Attending Unavailable John, [place] Referring Unavailable Carlos, Dariusz Chi Primary Care Unavailable Carlos, Dariusz Chi Attending Unavailable Carlos, Dariusz Chi Referring Unavailable Carlos, Dariusz Chi Primary Care Unavailable Emiliana Joseph Attending Unavailable Carlos, Dariusz Chi Referring Unavailable John, [place] Attending Unavailable John, Aristeo Referring Unavailable Carlos, Dariusz Chi Primary Care Unavailable John, [place] Attending Unavailable Carlos, Dariusz Chi Primary Care Unavailable Carlos, Dariusz Chi Attending Unavailable Carlos, Dariusz Chi Primary Care Unavailable Cralos, Dariusz Chi Primary Care Unavailable Buddy Amaya Attending Unavailable John, [place] Attending Unavailable Carlos, Dariusz Chi Referring Unavailable Carlos, Dariusz Chi Primary Care Unavailable Emiliana Joseph Attending Unavailable Carlos, Dariusz Chi Referring Unavailable John, [place] Attending Unavailable Carlos, Dariusz Chi Primary Care Unavailable John, Aristeo Attending Unavailable John, [place] Referring Unavailable Carlos, Dariusz Chi Primary Care Unavailable Emiliana Joseph Attending Unavailable Carlos, Dariusz Chi Referring Unavailable Saloni Bowie Attending Unavailable Carlos, Dariusz Chi Referring Unavailable Carlos, Dariusz Chi Primary Care Unavailable Saloni Bowie Attending Unavailable Saloni Bowie Referring Unavailable Carlos, Dariusz Chi Primary Care Unavailable Saloni Bowie Attending Unavailable Saloni Bowie Referring Unavailable Carlos, Dariusz Chi Primary Care Unavailable John, [place] Attending Unavailable Saloni Bowie Referring Unavailable John, [place] Attending Unavailable John, [place] Referring Unavailable Carlos, Dariusz Chi Primary Care Unavailable John, Aristeo Attending Unavailable John, [place] Referring Unavailable Carlos, Dariusz Chi Primary Care Unavailable John, [place]iste[place] Attending Unavailable Carlos, Dariusz Chi Referring Unavailable JakeAstride Attending Unavailable Carlos, Dariusz Chi Referring Unavailable John, Ariste[place] Attending Unavailable John, [place] Referring Unavailable Carlos, Dariusz Chi Primary Care Unavailable Saloni Bowie Attending Unavailable Saloni Bowie Referring Unavailable Carlos, Dariusz Chi Primary Care Unavailable Bowie, Saloni M Attending Unavailable Saloni Bowie Referring Unavailable Carlos, Dariusz Chi Primary Care Unavailable Jacob Cruz Attending Unavailable Jacob Cruz Referring Unavailable Carlos, Dariusz Chi Primary Care Unavailable PROBLEMS PROBLEMS DATE TYPE CONDITION / CODE ATTENDING STATUS SOURCE 09/11/2018 Unknown M62.81 - Muscle Carlos, Dariusz Chi Active [facility] weakness (generalized) Community / M62.81(ICD-10) Hospital Repository 09/11/2018 Unknown R26.2 - Difficulty in Carlos, Dariusz Chi Active [facility] walking, not elsewhere Community classified / Hospital R26.2(ICD-10) Repository 09/04/2018 Unknown I48.0 - Paroxysmal [place], [place] Active [facility] atrial fibrillation / Community I48.0(ICD-10) Hospital Repository 08/15/2018 Unknown R53.81 - Other malaise Carlos, Dariusz Chi Active [facility] / R53.81(ICD-10) Community Hospital Repository 08/04/2018 Unknown M25.559 - Pain in [facility], Patrice Active [facility] unspecified hip / Community M25.559(ICD-10) Hospital Repository 06/05/2018 Unknown Z95.0 - Presence of [place], [place] Active [facility] cardiac pacemaker / Community Z95.0(ICD-10) Hospital Repository 06/05/2018 Unknown I10 - Essential John, Aristeo Active [facility] (primary) hypertension Community / I10(ICD-10) Hospital Repository 06/05/2018 Unknown I48.2 - Chronic atrial [place], [place] Active [facility] fibrillation / Community I48.2(ICD-10) Hospital Repository 06/05/2018 Unknown Z98.61 - Coronary [place], [place] Active [facility] angioplasty status / Community Z98.61(ICD-10) Hospital Repository 06/05/2018 Unknown I47.1 - [place], [place] Active [facility] Supraventricular Community tachycardia / Hospital I47.1(ICD-10) Repository 06/05/2018 Unknown E78.5 - [place], [place] Active [facility] Hyperlipidemia, Community unspecified / Hospital E78.5(ICD-10) Repository 03/10/2018 Unknown I25.10 - [place], Active [facility] Atherosclerotic heart Saloni Reyes [facility] disease [facility] coronary artery Repository without angina pectoris / I25.10(ICD-10) 03/10/2018 Unknown R55 - Syncope and Bowie, Active [facility] collapse / R55(ICD-10) Saloni [facility] Repository 03/10/2018 Unknown R09.89 - Other [place]ie, Active [facility] specified symptoms and Saloni [facility] signs involving the Hospital circulatory and Repository respiratory systems / R09.89(ICD-10) 09/17/2017 Unknown E55.9 - Vitamin D Carlos, Dariusz Chi Active [facility] deficiency, Community unspecified / Hospital E55.9(ICD-10) Repository PROCEDURES PROCEDURES No Procedure Records FoundRESULTS RESULTS PROTHROMBIN TIME W/INR Collected: 09/04/2018 Status: F Source: [place] 4:06 PM REPOSITORY TYPE CODE TESTS RESULT OUT OF RANGE REFERENCE UNITS LAB L300.4150 11.7-14.9 SECONDS High PROTIME 29.1 LAB L300.4200 Normal INR 2.7 Performed By: #### L300.3900 #### [facility] [address] [place], [address] PACEMAKER CHECK Observed: 09/04/2018 Status: F Source: [place] 9:50 AM REPOSITORY [facility] [address] [place] [address] Pacemaker Check Date of Service: 09/03/181746 MR#: [id number] Acct: [id number] Name: JULIAN JACOB Rep #: [id number] : 1935 From: Emiliana Joseph Age/Sex: 83/M Location: [facility] Status: Signed Billing Codes PM Device Codes: PM Dev Interrogate (Remot 09/03/18 9731 <Electronically signed by Emiliana Joseph > Date Emiliana Joseph 09/04/18 0950<Electronically signed by Aristeo Lopez MD> Cosigner Signature: Date (if applicable) Aristeo Lopez MD CC: INITAL EVALUATION (1) Observed: 08/28/2018 Status: F Source: [place] - PT 5:46 PM REPOSITORY [facility] Physical [facility] [address] [place] [address] / REHABILITATION SERVICES INITIAL EVALUATION MR#: [id number] Acct: [id number] Name: JULIAN JACOB Rep #: [id number] : 1935 82 From: Sandeep Bryan PT, [...] to be FAXED BACK to us at [phone] for Medicare purposes. For Medicare only, by signing this I certify the plan of care. Please let me know if there are questions or concerns regarding this plan of care. Physician Signature: Date: <Electronically signed by Sandeep Bryan PT, Cert. MDT, OCS> 08/28/18 1746 CC: Dariusz Gonzalez MD HEATHER Signed PROTHROMBIN TIME W/INR Collected: 08/20/2018 Status: F Source: [place] 10:14 AM REPOSITORY TYPE CODE TESTS RESULT OUT OF RANGE REFERENCE UNITS LAB L300.4150 11.7-14.9 SECONDS High PROTIME 19.8 LAB L300.4200 Normal INR 1.7 Performed By: #### L300.3900 #### [facility] [address] [facility] [address] 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 Birmingham: Proximal LAD Chronic atrial fibrillation (Chronic) Supraventricular tachycardia (Chronic) Carotid bruit (Chronic) Presence of permanent cardiac pacemaker (Chronic) Permanent Pacemaker insertion, single chamber 10/17/15, [employer] Bundle branch block, right (Chronic) Hypertension (Chronic) PAF (paroxysmal atrial fibrillation) (Chronic) Osteoarthritis (Chronic) Hypothyroidism (Chronic) S/P PTCA (percutaneous transluminal coronary angioplasty) (Chronic) 09/21/2004 @ [facility] per Dr. Birmingham: Proximal LAD Bundle [...] DISCHARGE INSTRUCTION Observed: 08/15/2018 Status: F Source: [place] 12:38 PM REPOSITORY [facility] Medical Records Department [address] [place] [address] Instructions for Home/Discharge Instructions 08/15/18 1236 MR#: [id number] Acct: [id number] Name: JULIAN JACOB Rep #: [id number] : 1935 82 From: Dariusz Gonzalez MD [...] 08/15/2018 Status: F Source: [place] 5:25 AM REPOSITORY TYPE CODE TESTS RESULT OUT OF RANGE REFERENCE UNITS LAB L300.4150 11.7-14.9 SECONDS High PROTIME 33.0 LAB L300.4200 Normal INR 3.2 Performed By: #### L300.3900 #### [facility] [address] [place], [address] PROTHROMBIN TIME W/INR Collected: 08/14/2018 Status: F Source: [place] 5:10 AM REPOSITORY TYPE CODE TESTS RESULT OUT OF REFERENCE UNITS RANGE LAB L300.4150 11.7-14.9 SECONDS High PROTIME 36.4 LAB L300.4200 High alert INR 3.6 Result Comment: CRITICAL VALUE VERIFIED. CALLED TO LAYO BIANCHI 08/14/18 0625 Carrie Morgan. RESULTS READ BACK BY SAME . Performed By: #### L300.3900 #### [facility] [address] [place], [address] Observed: 08/14/2018 Status: F Source: [place] RESPIRATORY PANEL 5:08 AM MOLECULAR REPOSITORY Order Date: 08/14/18 Has pt [...] acid amplification Performed By: #### M100.638 #### [facility] [address] [place], [address] CBC W/DIFF, AUTOMATED Collected: 08/12/2018 Status: F Source: [place] 5:10 AM REPOSITORY TYPE CODE TESTS RESULT OUT OF [...] Lymph 1.31 Performed By: #### L100.0100 #### [facility] [address] [facility]. [place], [place], [address] BASIC METABOLIC Collected: 08/12/2018 Status: F Source: [place] PROFILE (BMP) 5:10 AM REPOSITORY TYPE CODE TESTS RESULT OUT OF [...] GAP 10 Performed By: #### L500.2500 #### [facility] [address] [place], [place], [address] PROTHROMBIN TIME W/INR Collected: 08/11/2018 Status: F Source: [place] 5:30 AM REPOSITORY TYPE CODE TESTS RESULT OUT OF RANGE REFERENCE UNITS LAB L300.4150 11.7-14.9 SECONDS High PROTIME 27.1 LAB L300.4200 Normal INR 2.5 Performed By: #### L300.3900 #### [facility] Laboratory [facility] [place], [place], [address] PROTHROMBIN TIME W/INR Collected: 08/06/2018 Status: F Source: [place] 5:25 AM REPOSITORY TYPE CODE TESTS RESULT OUT OF RANGE REFERENCE UNITS LAB L300.4150 11.7-14.9 SECONDS High PROTIME 26.4 LAB L300.4200 Normal INR 2.4 Performed By: #### L300.3900 #### [facility] [address] [place], [place], [address] CBC W/DIFF, AUTOMATED Collected: 08/05/2018 Status: F Source: [place] 5:25 AM REPOSITORY TYPE CODE TESTS RESULT OUT OF [...] Lymph 1.76 Performed By: #### L100.0100 #### [facility] [address] [facility] [address] PROTHROMBIN TIME W/INR Collected: 08/05/2018 Status: F Source: [place] 5:25 AM REPOSITORY TYPE CODE TESTS RESULT OUT OF RANGE REFERENCE UNITS LAB L300.4150 11.7-14.9 SECONDS High PROTIME 30.7 LAB L300.4200 Normal INR 2.9 Performed By: #### L300.3900 #### [facility] [address] [place], [address] BASIC METABOLIC Collected: 08/05/2018 Status: F Source: [place] PROFILE (BMP) 5:25 AM REPOSITORY TYPE CODE TESTS RESULT OUT OF [...] GAP 8 Performed By: #### L500.2500 #### [facility] [address] [facility] [place], [address] HISTORY AND PHYSICAL Observed: 08/04/2018 Status: F Source: [place] EXAM 7:59 PM REPOSITORY [facility] Medical Records Department [address] [place] [address] History and Physical 08/04/181942 MR#: [id number] Acct: [id number] Name: JULIAN JACOB Rep #: [id number] : 1935 82 From: Dariusz Gonzalez MD PCP: Carlos ALVARADO,Dariusz Nino Status: ADM IN Y Location: [place] [address] Problem List (1) Left hip pain Status: [...] with below past medical history presented to [facility] Emergency Department 07/31/2018 with trip, fall, [...] of craniotomy (Chronic) 09/13/08 for 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 Birmingham: Proximal LAD Chronic atrial fibrillation (Chronic) Supraventricular tachycardia (Chronic) Carotid bruit (Chronic) Presence of permanent cardiac pacemaker (Chronic) Permanent Pacemaker insertion, single chamber 10/17/15, [employer] Bundle branch block, right (Chronic) Hypertension (Chronic) PAF (paroxysmal atrial fibrillation) (Chronic) Osteoarthritis (Chronic) Hypothyroidism (Chronic) S/P PTCA (percutaneous transluminal coronary angioplasty) (Chronic) 09/21/2004 @ [facility] per Dr. Birmingham: Proximal LAD Bundle branch block, left (Chronic) Medical History: Medical History (Last Reviewed 08/01/18 @ 00:55 by Fabian Elizabeth MD) Chronic ectopic atrial tachycardia (Chronic) I47.1 History of syncope (Chronic) Z87.898 History of 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 (Chronic) Z86.79 09/13/2008 group home current use of anticoagulant (Chronic) Z79.01 Premature ventricular contractions (Chronic) I49.3 Hyperlipidemia (Chronic) E78.5 Atherosclerotic heart disease of [place] coronary artery without angina pectoris (Chronic) I25.10 PTCA and FORD 09/21/2004 @ [facility] per Dr. Birmingham: Proximal LAD Chronic [...] Z95.0 Permanent Pacemaker insertion, single chamber 10/17/15, [employer] S/P PTCA (percutaneous transluminal coronary angioplasty) (Chronic) Z98.61 09/21/2004 @ [facility] per Dr. Birmingham: Proximal LAD History [...] daily, Senna/colace 1 tablet BID, Dulcolax 10MG MI daily PRN. * Pneumonia vaccination - Administer [...] 08/04/2018 Status: F Source: [place] 2:37 PM REPOSITORY [facility] Medical Records Department [address] [place] [address] Discharge Summary 08/04/18 1129 MR#: [id number] Acct: [id number] Name: JULIAN JACOB Rep #: [id number] : 1935 82 From: Patrice Hill MD PCP: Dariusz Gonzalez MD, Chi Status: DIS IN Y [facility] Discharge Date and Diagnosis - Problem List [...] of craniotomy (Chronic) 09/13/08 for 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 group home current use of anticoagulant (Chronic) Premature ventricular contractions (Chronic) Hyperlipidemia (Chronic) 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 Birmingham: Proximal LAD Chronic atrial fibrillation (Chronic) Supraventricular tachycardia (Chronic) Carotid bruit (Chronic) Presence of permanent cardiac pacemaker (Chronic) Permanent Pacemaker insertion, single chamber 10/17/15, [employer] Bundle branch block, right (Chronic) Hypertension (Chronic) PAF (paroxysmal atrial fibrillation) (Chronic) Osteoarthritis (Chronic) Hypothyroidism (Chronic) S/P PTCA (percutaneous transluminal coronary angioplasty) (Chronic) 09/21/2004 @ [facility] per Dr. Birmingham: Proximal LAD Bundle [...] Date Recorded By Document 08/04/18 06:14 KJU [id number] 08/04/18 06:25 KJU Orthostatic Vitals Standing -Blood [...] applicable Code Visit Inpatient E AND M: [id number] Disch Hosp 08/04/18 1437 <Electronically signed by Patrice Hill MD> Date Patrice Hill MD Cosigner Signature (if applicable): Date CC: Patrice Hill MD; Dariusz Gonzalez MD Signed TRANSFER TO EXTENDED Observed: 08/04/2018 Status: F Source: [facility] 11:29 AM REPOSITORY [facility] Medical Records Department [address] [place] [address] Transfer to Extended Care MR#: [id number] Acct: [id number] Name: JULIAN JACOB Rep #: [id number] : 1935 82 From: Patrice Hill MD PCP: Dariusz Gonzalez MD, Chi [facility] (Health Ins. Claim No.) (Day of Discharge to Facility) Certification of patient admission REQUIRED AT TIME OF ADMISSION. I CERTIFY THAT POST-HOSPITAL ECF SERVICES ARE REQUIRED TO BE GIVEN ON AN IN-PATIENT BASIS BECAUSE OF THE ABOVE NAMED PATIENT'S NEED FOR LONGTERM CARE ON A CONTINUING BASIS FOR THE [...] TIME W/INR Collected: 08/04/2018 Status: F Source: [place] 5:24 AM REPOSITORY TYPE CODE TESTS RESULT OUT OF RANGE REFERENCE UNITS LAB L300.4150 11.7-14.9 SECONDS High PROTIME 31.9 LAB L300.4200 Normal INR 3.1 Performed By: #### L300.3900 #### [facility] [address] [place], [address] TRANSFER TO [facility] Observed: 08/03/2018 Status: F Source: [place] [facility] 11:58 AM REPOSITORY [facility] Medical Records Department [address] [place] [address] Transfer to Extended Care MR#: [id number] Acct: [id number] Name: JULIAN JACOB Rep #: [id number] : 1935 82 From: Denisse Wong MD PCP: Carlos ALVARADO,Dariusz Nino Status: ADM IN [facility] (Patient) (Health Ins. Claim No.) (Day of Discharge to Facility) Certification of patient admission REQUIRED AT TIME OF ADMISSION. I CERTIFY THAT POST-HOSPITAL ECF SERVICES ARE REQUIRED TO BE GIVEN ON AN IN-PATIENT BASIS BECAUSE OF THE ABOVE NAMED PATIENT'S NEED FOR LONGTERM CARE ON A CONTINUING BASIS FOR THE [...] DISCHARGE INSTRUCTION Observed: 08/03/2018 Status: F Source: [place] 11:52 AM REPOSITORY [facility] Medical Records Department [address] [place] [address] Instructions for Home/Discharge Instructions 08/03/18 1148 MR#: [id number] Acct: [id number] Name: JULIAN JACOB Rep #: [id number] : 1935 82 From: Denisse Wong MD [...] Status: F Source: [place] WITHOUT CONTRA 9:35 [facility] REPOSITORY [facility] Imaging Services [address] [place] [address] Extremity Lower without Contra MR#: [id number] Acct: [id number] Name: ARIELARubénMONTYJULIAN Vijay Rep #: [id number] : 1935 M 82 From: Alejandro Marte MD PCP: Dariusz Gonzalez MD, Chi Status: ADM IN Study: Extremity Lower without Contra Date of Exam: 08/03/18 Exam# [id number] Ordering Dr: Denisse Wong MD CT left [...] the left sacroiliac joint with anterior spurring. [place] calcifications of the left proximal iliotibial band [...] CC: Denisse Wong MD; Dariusz Gonzalez MD Case Monitor: Signed CBC W/DIFF, AUTOMATED Collected: 08/02/2018 Status: F Source: [place] 7:25 AM REPOSITORY TYPE CODE TESTS RESULT OUT OF [...] Lymph 1.52 Performed By: #### L100.0100 #### [facility] [address] [place], [place], [address] PROTHROMBIN TIME W/INR Collected: 08/02/2018 Status: F Source: [place] 7:25 AM REPOSITORY TYPE CODE TESTS RESULT OUT OF RANGE REFERENCE UNITS LAB L300.4150 11.7-14.9 SECONDS High PROTIME 29.9 LAB L300.4200 Normal INR 2.8 Performed By: #### L300.3900 #### [facility] [address] [place], [place], [address] BASIC METABOLIC Collected: 08/02/2018 Status: F Source: [place] PROFILE (BMP) 7:25 AM REPOSITORY TYPE CODE TESTS RESULT OUT OF [...] GAP 8 Performed By: #### L500.2500 #### [facility] [address] [place], [address] CBC W/DIFF, AUTOMATED Collected: 08/01/2018 Status: F Source: [place] 1:30 PM REPOSITORY TYPE CODE TESTS RESULT OUT OF [...] Lymph 1.72 Performed By: #### L100.0100 #### [facility] [address] [place], [place], [address] VITAMIN D,25 HYDROXY Collected: 08/01/2018 Status: F Source: [place] 5:46 AM REPOSITORY TYPE CODE TESTS RESULT OUT OF REFERENCE UNITS RANGE LAB L506.1000 29.95-100.01 ng/mL Low Vitamin D 28.9 25-OH Result Comment: Vitamin D 25(OH) Status Range Deficiency <20 ng/mL (50nmol/L) Insuffciency 20 - 30 ng/mL (50 - 75 nmol/L) Sufficiency 30 - 100 ng/mL (75 - 250 nmol/L) Toxicity >100 ng/mL (>250 nmol/L) Performed By: #### L506.1000 #### [facility] [address] 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 Birmingham: Proximal LAD Chronic atrial fibrillation (Chronic) Supraventricular tachycardia (Chronic) Carotid bruit (Chronic) Presence of permanent cardiac pacemaker (Chronic) Permanent Pacemaker insertion, single chamber 10/17/15, [employer] Bundle branch block, right (Chronic) Hypertension (Chronic) PAF (paroxysmal atrial fibrillation) (Chronic) Osteoarthritis (Chronic) Hypothyroidism (Chronic) S/P PTCA (percutaneous transluminal coronary angioplasty) (Chronic) 09/21/2004 @ [facility] per Dr. 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 Birmingham: Proximal LAD Chronic [...] Z95.0 Permanent Pacemaker insertion, single chamber 10/17/15, [employer] S/P PTCA (percutaneous transluminal coronary angioplasty) (Chronic) Z98.61 09/21/2004 @ [facility] per Dr. Birmingham: Proximal LAD History [...] necessary. Code Visit OBSV E AND M: [id number] Initial observation care L3 08/01/18 0308 <Electronically signed by Fabian Elizabeth MD> Date [facility] Signature: Date (if applicable) CC: Fabian Elizabeth MD; Dariusz Gonzalez MD Signed CBC-COMPLETE BLOOD CNT Collected: 08/01/2018 Status: F Source: [place] NO DIFF 12:53 AM REPOSITORY TYPE CODE TESTS RESULT OUT OF [...] MPV 9.7 Performed By: #### L100.0500 #### [facility] [address] [place], [place], [address] PROTHROMBIN TIME W/INR Collected: 08/01/2018 Status: F Source: [place] 12:53 AM REPOSITORY TYPE CODE TESTS RESULT OUT OF RANGE REFERENCE UNITS LAB L300.4150 11.7-14.9 SECONDS High PROTIME 26.3 LAB L300.4200 Normal INR 2.4 Performed By: #### L300.3900 #### [facility] [address] [place], [address] BASIC METABOLIC Collected: 08/01/2018 Status: F Source: [place] PROFILE (BMP) 12:53 AM REPOSITORY TYPE CODE TESTS RESULT OUT OF [...] GAP 8 Performed By: #### L500.2500 #### [facility] [address] [place], [address] EMERGENCY DEPARTMENT Observed: 07/31/2018 Status: F Source: [place] SUMMARY 11:19 PM REPOSITORY [facility] Medical Records Department [address] [place] [address] Emergency Department Summary 07/31/182043 MR#: [id number] Acct: [id number] Name: JULIAN JACOB Rep #: [id number] : 1935 82 From: Pepe Oshea MD [...] clinically warranted This note was generated with Netbyte Hosting[employer] software. It may contain incorrect words, spelling, [...] your Primary Care Provider. Call [facility] ([phone]) or report to the closest Emergency Room. Call 911 if necessary. 07/31/18 2319 <Electronically signed by Pepe Oshea MD> Date Pepe Oshea MD Cosigner Signature (If Indicated): Date CC: Dariusz Gonzalez MD DISCHARGE INSTRUCTION Observed: 07/31/2018 Status: F Source: [place] 9:45 PM REPOSITORY [facility] Medical Records Department [address] [place] [address] Discharge Instruction 07/31/182144 MR#: [id number] Acct: [id number] Name: JULIAN JACOB Rep #: [id number] : 1935 82 From: Pepe Oshea MD [...] your Primary Care Provider. Call [facility] ([phone]) or report to the closest Emergency Room. Call 911 if necessary. 07/31/182144 <Electronically signed by Pepe Oshea MD> Date Pepe Oshea MD Cosigner Signature (If Indicated): Date CC: Dariusz Gonzalez MD HIP, UNI W/ PELVIS Observed: 07/31/2018 Status: F Source: [place] 2-3 VIEWS 8:44 PM REPOSITORY [facility] Imaging Services [address] [place] [address] HIP, UNI W/ Pelvis 2-3 Views MR#: [id number] Acct: [id number] Name: JULIAN JACOB Rep #: [id number] : 1935 M 82 From: Claude Hinds MD PCP: Dariusz Gonzalez MD, Chi Status: REG ER Study: HIP, UNI W/ Pelvis 2-3 Views Date of Exam: 07/31/18 Exam# [id number] Ordering Dr: Pepe Oshea MD STUDY: X-RAY [...] CC: MD Yenifer Oshea; Dariusz Gonzalez MD Case Monitor: Signed PROTHROMBIN TIME W/INR Collected: 06/24/2018 Status: F Source: [place] 2:06 PM REPOSITORY TYPE CODE TESTS RESULT OUT OF RANGE REFERENCE UNITS LAB L300.4150 11.7-14.9 SECONDS High PROTIME 25.8 LAB L300.4200 Normal INR 2.3 Performed By: #### L300.3900 #### [facility] [address] [place], [place], [address] PROTHROMBIN TIME W/INR Collected: 06/10/2018 Status: F Source: [place] 2:19 PM REPOSITORY TYPE CODE TESTS RESULT OUT OF RANGE REFERENCE UNITS LAB L300.4150 11.7-14.9 SECONDS High PROTIME 23.5 LAB L300.4200 Normal INR 2.1 Performed By: #### L300.3900 #### [facility] [address] [place], [place], [address] PACEMAKER CHECK Observed: 06/06/2018 Status: F Source: [place] 6:58 AM REPOSITORY [facility] [address] [place] [address] Pacemaker Check Date of Service: 06/05/18 1432 MR#: [id number] Acct: [id number] Name: JULIAN JACOB Rep #: [id number] : 1935 From: Emiliana Joseph Age/Sex: 82/M Location: [facility] Status: Signed Billing Codes PM Device Codes: PM Dev Prog Jane, Single 06/05/18 1434 <Electronically signed by Emiliana Joseph > Date Emiliana Joseph 06/06/18 0658<Electronically signed by Aristeo Lopez MD> Cosigner Signature: Date (if applicable) Aristeo Lopez MD CC: CARDIOLOGY VISIT Observed: 06/05/2018 Status: F Source: [place] REPORT 2:48 PM REPOSITORY [facility] [address] [place] [address] OFFICE VISIT Date of Service: 06/05/18 MR#: [id number] Acct: [id number] Name: JULIAN JACOB Rep #: [id number] : 1935 Provider: Aristeo Lopez MD Age/Sex: 82/M Location: [facility] Status: Signed HPI HPI Chief Complaint: Follow [...] Marielle @ 2p (we r/s from 05-29) Wiping Cloth Cutter Required: No Accompanied by: none Is patient [...] tab 06/05/18 [Rx Confirmed 06/05/18] [facility] Medical History Chronic ectopic atrial tachycardia (Chronic) History of syncope (Chronic) History of 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 (Chronic) group home current use of anticoagulant (Chronic) Premature ventricular contractions (Chronic) Hyperlipidemia (Chronic) Atherosclerotic heart disease of [place] coronary artery without angina pectoris (Chronic) Chronic [...] Z95.0 Permanent Pacemaker insertion, single chamber 10/17/15, [employer] Plan He is status post permanent pacemaker implantation his pacemaker was interrogated today the battery longevity is over 7 years and he is V paced less than 1% of the time. Perhaps increasing his beta-gualberto dose would allow him to be V paced more. 4. S/P PTCA (percutaneous transluminal coronary angioplasty) Z98.61 09/21/2004 @ [facility] per Dr. Birmingham: Proximal LAD Plan [...] 05/27/2018 Status: F Source: [place] 11:28 AM REPOSITORY TYPE CODE TESTS RESULT OUT OF RANGE REFERENCE UNITS LAB L300.4150 11.7-14.9 SECONDS High PROTIME 21.0 LAB L300.4200 Normal INR 1.8 Performed By: #### L300.3900 #### [facility] [address] [place] [address] [place], [address] STRESS REPORT Observed: 03/31/2018 Status: F Source: [place] 4:07 PM REPOSITORY [facility] Cardiovascular Services [address] [place], [place] [address] [place] [address] MR#: [id number] Acct: [id number] Name: JULIAN JACOB Rep #: [id number] : 1935 82 From: Aristeo Lopez MD [...] MD Date Dictated: 03/31/181600 Date Transcribed: 03/31/181600 Case Monitor: CO Signed CARDIOLOGY VISIT Observed: 03/19/2018 Status: F Source: [place] REPORT 4:33 PM REPOSITORY [facility] [address] [place] [address] OFFICE VISIT Date of Service: 03/10/18 MR#: [id number] Acct: [id number] Name: JULIAN JACOB Rep #: [id number] : 1935 Provider: Saloni Bowie Age/Sex: 82/M Location: [facility] Status: Signed HPI HPI Details: JULIAN JACOB, [...] Blood Pressure 100/60 Intake Visit Reasons: Syncope Wiping Cloth Cutter Required: No Is patient in pain?: Yes [...] tab 03/10/18 [Rx Confirmed 03/10/18] [facility] Medical History Chronic ectopic atrial tachycardia (Chronic) History of syncope (Chronic) History of 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 (Chronic) 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 Atherosclerosis of [place] coronary artery of [place] heart without angina pectoris I25.10 PTCA and FORD 09/21/2004 @ [facility] per Dr. Birmingham: Proximal LAD Plan [...] Z95.0 Permanent Pacemaker insertion, single chamber 10/17/15, [employer] Plan - JESSEE Mckee Pacemaker [...] type R55 Syncope type: unspecified Atherosclerosis of [place] coronary artery of [place] heart without angina pectoris I25.10 [place] vs. transplanted heart: [place] heart Chronic atrial fibrillation I48.2 Presence of permanent cardiac pacemaker Z95.0 Essential hypertension I10 Hypertension type: essential hypertension Coding Level of Care Code Off vis,est,level 4 Diagnoses Syncope, unspecified syncope type R55 Syncope type: unspecified Atherosclerosis of [place] coronary artery of [place] heart without angina pectoris I25.10 [place] vs. transplanted heart: [place] heart Chronic atrial fibrillation I48.2 Presence of permanent cardiac pacemaker Z95.0 Essential hypertension I10 Hypertension type: essential hypertension 03/10/18 1337 <Electronically signed by Saloni HOOKS> Date Saloni HOOKS 03/19/18 1633<Electronically signed by Aristeo Lopez MD> Cosigner Signature: Date (if applicable) Aristeo Lopez MD CC: CAROTID DUPLEX Observed: 03/15/2018 Status: F Source: [place] ULTRASOUND 3:03 PM REPOSITORY [facility] Cardiovascular Services [address] [place] [address] Carotid Duplex Ultrasound 03/13/18 [facility] MR#: [id number] Acct: [id number] Name: JULIAN JACOB Rep #: [id number] : 1935 82 From: Prosper Mauro MD Attending Dr: Saloni Bowie Status: REG CLI Ordering Dr: Saloni Bowie Date: 03/13/18 Location: [facility] Sex: M C Admitted: Reason For [...] the left vertebral artery. Procedure Carotid Duplex 92594. The exam was diagnostic. Exam performed in [...] Dictated: 03/13/18 1024 Date Transcribed: 03/15/18 1502 Case Monitor: Signed CBC W/DIFF, AUTOMATED Collected: 03/11/2018 Status: F Source: [place] 4:10 PM REPOSITORY TYPE CODE TESTS RESULT OUT OF [...] 1.77 Performed By: #### L100.0100, L101.9900 #### [facility] [address] [place], [address] ERYTHROCYTE SED RATE Collected: 03/11/2018 Status: F Source: [place] 4:10 PM REPOSITORY TYPE CODE TESTS RESULT OUT OF RANGE REFERENCE UNITS LAB L102.0000 0-20 mm/hr Normal SED RATE 7 Performed By: #### L100.0100, L101.9900 #### [facility] [address] [facility] [place], [address] CRP Collected: 03/11/2018 Status: F Source: [place] 4:10 PM REPOSITORY TYPE CODE TESTS RESULT OUT OF RANGE REFERENCE UNITS LAB L501.6710 0.0-3.0 mg/L High 24.70 C-REACTIVE PROT Result Comment: C-Reactive Protein (CRP) provides useful information for the diagnosis, therapy and monitoring of inflammatory processes and associated diseases. For the evaluation of Relative Risk for Cardiovascular Disease, a High Sensitivity CRP (HSCRP) should be ordered. Performed By: #### L501.6710 #### [facility] [address] [facility]. [place], [place], [address] CBC W/DIFF, AUTOMATED Collected: 03/10/2018 Status: F Source: [place] 11:14 AM REPOSITORY TYPE CODE TESTS RESULT OUT OF [...] Performed By: #### L100.0100, L500.2500, L501.9520 #### [facility] [address] [place], [address] BASIC METABOLIC Collected: 03/10/2018 Status: F Source: [place] PROFILE (BMP) 11:14 AM REPOSITORY TYPE CODE TESTS RESULT OUT OF [...] Performed By: #### L100.0100, L500.2500, L501.9520 #### [facility] [address] [place], [address] THYROID STIM HORMONE Collected: 03/10/2018 Status: F Source: [place] (TSH) 11:14 AM REPOSITORY TYPE CODE TESTS RESULT OUT OF RANGE REFERENCE UNITS LAB L501.9520 0.358-3.74 uIU/mL Normal TSH 1.56 Performed By: #### L100.0100, L500.2500, L501.9520 #### [facility] [address] [place], [address] PROTHROMBIN TIME W/INR Collected: 03/10/2018 Status: F Source: [place] 11:14 AM REPOSITORY Order Comment: Comments: Standing order valid from: 01/15/18 to 01/15/19 Comments: Standing order valid from: 01/15/18 to 01/15/19 TYPE CODE TESTS RESULT OUT OF RANGE REFERENCE UNITS LAB L300.4150 11.7-14.9 SECONDS High PROTIME 28.5 LAB L300.4200 Normal INR 2.7 Performed By: #### L300.3900 #### [facility] [address] [place], [address] PACEMAKER CHECK Observed: 02/25/2018 Status: F Source: [place] 9:24 AM REPOSITORY [facility] [place] [address] Pacemaker Check Date of Service: 02/24/18 1752 MR#: [id number] Acct: [id number] Name: JULIAN JACOB Rep #: [id number] : 1935 From: Emiliana Joseph Age/Sex: 82/M Location: [facility] Status: Signed Billing Codes PM Device Codes: PM Dev Interrogate (Remot 02/24/18 175 <Electronically signed by Emiliana Joseph > Date Emiliana Joseph 02/25/18 0924<Electronically signed by Aristeo Lopez MD> Cosigner Signature: Date (if applicable) Aristeo Lopez MD CC: PROTHROMBIN TIME W/INR Collected: 01/10/2018 Status: F Source: [place] 10:57 AM REPOSITORY TYPE CODE TESTS RESULT OUT OF RANGE REFERENCE UNITS LAB L300.4150 11.7-14.9 SECONDS High PROTIME 23.7 LAB L300.4200 Normal INR 2.1 Performed By: #### L300.3900 #### [facility] [address] [place], [place], [address] PROTHROMBIN TIME W/INR Collected: 12/09/2017 Status: F Source: [place] 10:41 AM REPOSITORY TYPE CODE TESTS RESULT OUT OF RANGE REFERENCE UNITS LAB L300.4150 11.7-14.9 SECONDS High PROTIME 24.2 LAB L300.4200 Normal INR 2.2 Performed By: #### L300.3900 #### [facility] [address] [place], [place], [address] PACEMAKER CHECK Observed: 12/03/2017 Status: F Source: [place] 11:02 AM REPOSITORY [facility] 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 Aristeo Lopez Patient Characteristics Atrial Indication: Atrial tachycardia, sick sinus syndrome Patient Substrate: Syncope Ejection fraction %: 60 to 64 (01/07/2015) By: Echo Underlying rhythm: Atrial fibrillation Pacemaker Dependent: No Device Characteristics Device: Single Chamber Type: Pacemaker Remote Follow-Up: [employer] Leads Lead #1 Vocational Childcare Teacher Lead 1: Guidant Model Lead 1: 4137 Serial# Lead 1: [id number] Date Implanted Lead 1: 10/17/15 Position Lead [...] Z95.0 Permanent Pacemaker insertion, single chamber 10/17/15, [employer]ent[employer] 2. Syncope R55 3. Chronic atrial fibrillation I48.2 4. Supraventricular tachycardia I47.1 5. Right bundle-branch block I45.10 04/14/18 1218 <Electronically signed by Emiliana Joseph > Date Emiliana Joseph 12/03/17 1102<Electronically signed by Aristeo Lopez MD> Cosigner Signature: Date (if applicable) Aristeo Lopez MD CC: PACEMAKER CHECK Observed: 12/03/2017 Status: F Source: [place] 11:02 AM REPOSITORY [facility] [address] [place] [address] Pacemaker Check Date of Service: 12/02/17 1548 MR#: [id number] Acct: [id number] Name: JULIAN JACOB Rep #: [id number] : 1935 From: Emiliana Joseph Age/Sex: 82/M Location: [facility] Status: Signed Comments Summary Comments: Single Chamber [...] shows atrial fib 84 to 120 bpm. INWEAVER=<1%. Battery longevity approx 7.5 years. lead impedance, sensing and pace/sense threshold remain stable. No parameter changes made. Counters cleared. Next f/u appt scheduled for in 3 mos. Device Device Date Interviewed: 11/21/17 Follow-up Location: remote, in office Interview Reason: routine follow up Vocational Childcare Teacher: [employer] Name: Essentio SR Model: L100 Serial #: [id number] Implant Date: 10/17/15 Year(s): 2 Patient Characteristics Atrial Indication: Atrial tachycardia, sick sinus syndrome Patient Substrate: Syncope Ejection fraction %: 60 to 64 By: Echo Underlying rhythm: Atrial fibrillation Pacemaker Dependent: No Device Characteristics Device: Single Chamber Type: Pacemaker Remote Follow-Up: [employer] Lead #1 Vocational Childcare Teacher Lead 1: Rupali Model Lead 1: 4137 Serial# Lead 1: [id number] Date Implanted Lead 1: 10/17/15 Position Lead [...] Z95.0 Permanent Pacemaker insertion, single chamber 10/17/15, [employer]ent[employer] 2. Syncope R55 3. Supraventricular tachycardia I47.1 4. Chronic atrial fibrillation I48.2 5. Atherosclerotic heart disease of [place] coronary artery without angina pectoris I25.10 PTCA and FORD 09/21/2004 @ [facility] per Dr. Birmingham: Proximal LAD 12/03/17 0925 <Electronically signed by Emiliana Joseph > Date Emiliana Joseph 12/03/17 1102<Electronically signed by Aristeo Lopez MD> [place] Signature: Date (if applicable) Aristeo Lopez MD CC: CARDIOLOGY VISIT Observed: 11/07/2017 Status: F Source: [place] REPORT 11:53 AM REPOSITORY [facility] [address] [place] [address] OFFICE VISIT Date of Service: 11/07/17 MR#: [id number] Acct: [id number] Name: JULIAN JACOB Rep #: [id number] : 1935 Provider: Aristeo Lopez MD Age/Sex: 82/M Location: [facility] Status: Signed HPI [facility] Chief Complaint: Follow-up visit. 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) Coding Level of Care Code Off vis,est,level [...] LEAD ELECTROCARDIOGRAM Observed: 09/23/2017 Status: F Source: [place] 4:10 PM REPOSITORY [facility] Cardiovascular Services [address] [place] [address] 12 Lead EKG 09/18/17 1732 MR#: [id number] Acct: [id number] Name: JULIAN JACOB Rep #: [id number] : 1935 82 From: Aristeo Lopez MD [...] EMERGENCY DEPARTMENT Observed: 09/18/2017 Status: F Source: [place] SUMMARY 9:19 PM REPOSITORY [facility] Medical Records Department [address] [place] [address] Emergency Department Summary 09/18/17 1702 MR#: [id number] Acct: [id number] Name: JULIAN JACOB Rep #: [id number] : 1935 82 From: Buddy Amaya MD [...] extremity shows no DVT I discussed with boiler service technician. Emergency Department Course and Treatment: Patient [...] A. fib This note was generated with [employer] dictation software. It may contain incorrect words, [...] problems, contact your Primary Care Provider. Call [facility] ([phone]) or report to the closest Emergency Room. Call 911 if necessary. 09/18/17 6453 <Electronically signed by Buddy Amaya MD> Date Buddy Amaya MD Cosigner Signature (If Indicated): Date CC: Dariusz Gonzalez MD DISCHARGE INSTRUCTION Observed: 09/18/2017 Status: F Source: [place] 9:19 PM REPOSITORY [facility] Medical Records Department [address] [place] [address] Discharge Instruction 09/18/172000 MR#: [id number] Acct: [id number] Name: [place] Rep #: [id number] : 1935 82 From: Buddy Amaya MD [...] your Primary Care Provider. Call [facility] ([phone]) or report to the closest Emergency Room. Call 911 if necessary. 09/18/172118 <Electronically signed by Buddy Amaya MD> Date Buddy Amaya MD Cosigner Signature (If Indicated): Date CC: Dariusz Gonzalez MD VENOUS DUPLEX Observed: 09/18/2017 Status: F Source: [place] IMAG/LIMITED/UNI 5:33 PM REPOSITORY [facility] Imaging Services [address] [place] [address] Venous Duplex Imag/Limited/Uni MR#: [id number] Acct: [id number] Name: JULIAN JACOB Rep #: [id number] : 1935 M 82 From: Benji Roth MD PCP: Dariusz Gonzalez MD, Chi Status: REG ER Study: Venous Duplex Imag/Limited/Uni Date of Exam: 09/18/17 Exam# [id number] Ordering Dr: Buddy Amaya MD STUDY: VENOUS [...] CC: Buddy Amaya MD; Dariusz Gonzalez MD Case Monitor: Signed CBC W/DIFF, AUTOMATED Collected: 09/18/2017 Status: F Source: [place] 5:13 PM REPOSITORY TYPE CODE TESTS RESULT OUT OF [...] Lymph 1.64 Performed By: #### L100.0100 #### [facility] Laboratory [address] [place], [address] PROTHROMBIN TIME W/INR Collected: 09/18/2017 Status: F Source: [place] 5:13 PM REPOSITORY TYPE CODE TESTS RESULT OUT OF RANGE REFERENCE UNITS LAB L300.4150 11.7-14.9 SECONDS High PROTIME 27.1 LAB L300.4200 Normal INR 2.6 Performed By: #### L300.3900 #### [facility] [address] [place], [address] BASIC METABOLIC Collected: 09/18/2017 Status: F Source: [place] PROFILE (BMP) 5:13 PM REPOSITORY TYPE CODE TESTS RESULT OUT OF [...] GAP 10 Performed By: #### L500.2500 #### [facility] [address] [place], [address] CBC W/DIFF, AUTOMATED Collected: 09/17/2017 Status: F Source: [place] 2:41 PM REPOSITORY TYPE CODE TESTS RESULT OUT OF [...] Lymph 1.72 Performed By: #### L100.0100 #### [facility] [place] [place], [address] COMPREHENSIVE METABOLIC Collected: 09/17/2017 Status: F Source: [place] PROFIL 2:41 PM REPOSITORY TYPE CODE TESTS RESULT OUT OF [...] 9 Performed By: #### L500.4050, L501.9520 #### [facility] [address] [place], [address] THYROID STIM HORMONE Collected: 09/17/2017 Status: F Source: [place] (TSH) 2:41 PM REPOSITORY TYPE CODE TESTS RESULT OUT OF RANGE REFERENCE UNITS LAB L501.9520 0.358-3.74 uIU/mL Normal TSH 2.11 Performed By: #### L500.4050, L501.9520 #### [facility] [address] [place], [address] VITAMIN D,25 HYDROXY Collected: 09/17/2017 Status: F Source: [place] 2:41 PM REPOSITORY TYPE CODE TESTS RESULT OUT OF REFERENCE UNITS RANGE LAB L506.1000 19.95-100.01 ng/mL Low Vitamin D 15.4 25-OH Result Comment: Vitamin D 25(OH) Status Range Deficiency <20 ng/mL (50nmol/L) Insuffciency 20 - 30 ng/mL (50 - 75 nmol/L) Sufficiency 30 - 100 ng/mL (75 - 250 nmol/L) Toxicity >100 ng/mL (>250 nmol/L) Performed By: #### L506.1000 #### [facility] [address] [place], [address] ALLERGIES ALLERGIES DATE TYPE / CODE NAME / CODE REACTION SEVERITY SOURCE 07/31/2018 Drug No Known Unknown [facility] Allergy/4160 Allergies/F00 Hospital 89455(SNOMED 3965491(RXNOR Repository CT) M) ENCOUNTERS ENCOUNTERS ADMIT/DISCHARGE ACCOUNT ADMITTING ENCOUNTER LOCATION SOURCE NUMBER CLASS 09/11/2018 [id number] Ambulatory [place] 6 [facility] ing:PT Repository 09/04/2018 [id number] Ambulatory [place] 7 [facility] ing:MTLAB Repository 09/03/2018/ [id number] Ambulatory BMSBuilding:B [place] 9 3 [facility] Repository 08/20/2018 [id number] Ambulatory [place] 2 [facility] ing:MTLAB Repository 08/04/2018/ [id number] Dariusz Gonzalez Chi Inpatient [place] 8 3 [facility] ing:TCURoom: Repository ILH51Urw: 1 08/01/2018/ [id number] Agyeangelineg, Inpatient [place] 8 6 [place] Encounter [facility] ing:VU5Xemc: Repository NJ968Gsk: 1 08/01/2018 [id number] Agyepong, Ambulatory BMSBuilding:B [place] 6 [place] [facility] Repository 08/01/2018 [id number] Agyepong, Ambulatory BMSBuilding:B [place] 2 [place] [facility] Repository 08/01/2018 [id number] Agyepong, Ambulatory BMSBuilding:B [place] 8 [place] [facility] Repository 07/31/2018 [id number] Agyepong, Ambulatory BMSBuilding:B [place] 9 [place] [facility] Repository 07/31/2018 [id number] Agyepong, Ambulatory BMSBuilding:B [place] 0 [place] [facility] Repository 06/24/2018 [id number] Ambulatory [place] 5 [facility] ing:MTLAB Repository 06/10/2018 [id number] Ambulatory [place] 4 [facility] ing:MTLAB Repository 06/05/2018/ [id number] Ambulatory BMSBuilding:B [place] 8 9 [facility] Repository 06/05/2018/ [id number] Ambulatory BMSBuilding:B [place] 8 7 [facility] Repository 05/27/2018 [id number] Ambulatory [place] 9 [facility] ing:MTLAB Repository 03/31/2018 [id number] Ambulatory BMSBuilding:W [place] 7 [facility] Repository 03/31/2018 [id number] Ambulatory [place] 7 [facility] ing:CVS Repository 03/25/2018 [id number] Ambulatory [place] 2 [facility] ing:PSN Repository 03/13/2018 [id number] Ambulatory [place] 3 [facility] ing:CVS Repository 03/11/2018 [id number] Ambulatory [place] 3 [facility] ing:LAB Repository 03/10/2018 [id number] Ambulatory [place] 6 [facility] ing:LAB Repository 03/10/2018/ [id number] Ambulatory BMSBuilding:B [place] 8 6 [facility] Repository 02/24/2018/ [id number] Ambulatory BMSBuilding:B [place] 8 3 [facility] Repository 01/10/2018 [id number] Ambulatory [place] 8 [facility] ing:MTLAB Repository 12/17/2017 [id number] Ambulatory [place] 5 [facility] ing:MTLAB Repository 12/09/2017/ [id number] Ambulatory [place] 8 9 [facility] ing:MTLAB Repository 11/21/2017/ [id number] Ambulatory BMSBuilding:B [place] 8 9 [facility] Repository 11/07/2017/ [id number] Ambulatory BMSBuilding:B [place] 8 0 [facility] Repository 09/18/2017/ [id number] Emergency [place] 8 9 [facility] ing:ED Repository 09/17/2017 [id number] Ambulatory [place] 4 [facility] ing:POLAB3 Repository PAYERS PAYERS ENCOUNTER GUARANTOR 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 SOURCE 09/11/2018 JULIAN H Primary JULIAN H [place] [id number] Insurance:MEDICARE [facility]: [facility] [id number] Number: Repository [address]Anz: (750) [id number] [phone] () Date:2001-08-19 09/11/2018 Secondary JULIAN H [place] Insurance:[facility]: [facility] Number: [id number] Hospital [id number] [facility] [place] [address]DX: 09/11/2018 Tertiary NOT GIVENUNK [place] Insurance:SELF PAY [facility] Number: Effective Repository Date:2018-08-21 09/04/2018 JULIAN H Primary JULIAN H [place] [id number] Insurance:MEDICARE WILSFORDDOB: [facility] [id number] Number: Repository [address]Mnv: 330 [id number] [phone] () Date:2018-09-04 09/04/2018 Secondary JULIAN H [place] Insurance:MCCOY WILSFORDDOB: Community RULEPolicy Number: [id number] Hospital [id number] Repository Date: [facility], [place] [address]ZR: 09/04/2018 Tertiary NOT GIVENUNK [place] Insurance:SELF PAY [facility] Effective Repository Date:2018-09-04 09/03/2018 JULIAN H Primary JULIAN H [place] [id number] Insurance:MEDICARE WILSFORDDOB: Community [place] PART A [facility] [id number] [place] Number: Repository [address]Nxz: 330 [id number] [phone] () Date:2018-09-03 09/03/2018 Secondary JULIAN H [place] Insurance:MCCOY WILSFORDDOB: Community RULEPolicy Number: [id number] Hospital [id number] Repository Date: [facility], [place] [address]IM: 09/03/2018 Tertiary NOT GIVENUNK [place] Insurance:SELF PAY [facility] Number: Effective Repository Date:2018-09-03 08/20/2018 JULIAN H Primary JULIAN H [place] [id number] Insurance:MEDICARE WILSFORDDOB: Community [place] PART A olic [id number] Number: Repository [address]Fln: 330 [id number] [phone] () Date:2018-08-20 08/20/2018 Secondary JULIAN H [place] Insurance:MCCOY WILSFORDDOB: Community RULEPolicy Number: [id number] Hospital [id number] Repository Date: [facility], [place] [address]HO: 08/20/2018 Tertiary NOT GIVENUNK [place] Insurance:SELF PAY [facility] Number: Effective Repository Date:2018-08-20 08/04/2018 JULIAN H Primary JULIAN H [place] [id number] Insurance:MEDICARE WILSFORDDOB: Community [place] PART A [facility] [id number] [place] Number: Repository [address]Vzi: 330 [id number] [phone] () Date:2018-08-04 08/04/2018 Secondary JULIAN H [place] Insurance:MCCOY WILSFORDDOB: [facility] Number: [id number] Hospital [id number] Repository Date: [place] [address]WD: 08/04/2018 Tertiary NOT GIVENUNK [place] Insurance:SELF PAY [facility] Number: Effective Repository Date:2018-08-04 08/01/2018 JULIAN H Primary JULIAN H [place] [id number] Insurance:MEDICARE WILSFORDDOB: [facility] PART A [facility] [id number] Vista Regional [facility] Number: Repository [address]Dpy: 330 [id number] [phone] () Date:2018-07-31 08/01/2018 Secondary JULIAN H [place] Insurance:MCCOY WILSFORDDOB: [facility] Number: [id number] Hospital [id number] Repository Date: [place] [address]AL: 08/01/2018 Tertiary NOT GIVENUNK [place] Insurance:SELF PAY [facility] Number: Effective Repository Date:2018-07-31 08/01/2018 JULIAN H Primary JULIAN H [place] [id number] Insurance:MEDICARE WILSFORDDOB: Community [place] PART A [facility] [id number] [place] Number: Repository [address]Cet: 330 [id number] [phone] () Date:2018-07-31 08/01/2018 Secondary JULIAN H [place] Insurance:MCCOY WILSFORDDOB: Community RULEPolicy Number: [id number] Hospital [id number] Repository Date: [place], [place] [address]PI: 08/01/2018 Tertiary NOT GIVENUNK [place] Insurance:SELF PAY [facility] Number: Effective Repository Date:2018-08-01 08/01/2018 JULIAN H Primary JULIAN H [place] [id number] Insurance:MEDICARE WILSFORDDOB: Community [place] PART A olic [id number] Number: Repository [address]Eth: 330 [id number] [phone] () Date:2018-07-31 08/01/2018 Secondary JULIAN H [place] Insurance:MCCOY WILSFORDDOB[facility]: [id number] Hospital [id number] Repository Date: [facility], [place] [address]AH: 08/01/2018 Tertiary NOT GIVENUNK [place] Insurance:SELF PAY [facility] Number: Effective Repository Date:2018-08-01 08/01/2018 JULIAN H Primary JULIAN H [place] [id number] Insurance:MEDICARE WILSFORDDOB: Community [place] PART A [facility] [id number], [place] Number: Repository [address]Wni: 330 [id number] [phone] () Date:2018-07-31 08/01/2018 Secondary JULIAN H [place] Insurance:MCCOY WILSFORDDOB: [facility] Number: [id number] Hospital [id number] Repository Date: [facility], [place] [address]FC: 08/01/2018 Tertiary NOT GIVENUNK [place] Insurance:SELF PAY [facility] Number: Effective Repository Date:2018-08-01 07/31/2018 JULIAN H Primary JULIAN H [place] [id number] Insurance:MEDICARE WILSFORDDOB: Community [place] PART A olicy [id number], [place] Number: Repository [address]Bef: 330 [id number] [phone] () Date:2018-07-31 07/31/2018 Secondary JULIAN H [place] Insurance:MCCOY WILSFORDDOB: Community RULEPolicy Number: [id number] Hospital [id number] Repository Date: [facility], [place] [address]EJ: 07/31/2018 Tertiary NOT GIVENUNK [place] Insurance:SELF PAY [facility] Number: Effective Repository Date:2018-07-31 07/31/2018 JULIAN H Primary JULIAN H [place] [id number] Insurance:MEDICARE WILSFORDDOB: Community [place] PART A olic [id number], [place] Number: Repository [address]Tky: 330 [id number] [phone] () Date:2018-07-31 07/31/2018 Secondary JULIAN H [place] Insurance:MCCOY WILSFORDDOB: [facility] Number: [id number] Hospital [id number] Repository Date: [facility], [place] [address]EK: 07/31/2018 Tertiary NOT GIVENUNK [place] Insurance:SELF PAY [facility] Number: Effective Repository Date:2018-07-31 06/24/2018 JULIAN H Primary JULIAN H [place] [id number] Insurance:MEDICARE WILSFORDDOB: Community [place] PART A olic [id number], [place] Number: Repository [address]Dgc: (029) [id number] [phone] () Date:2018-06-24 06/24/2018 Secondary JULIAN H [place] Insurance:MCCOY WILSFORDDOB: [facility] RULEPolicy Number: [id number] Hospital [id number] Repository Date: [facility], [place] [address]XD: 06/24/2018 Tertiary NOT GIVENUNK [place] Insurance:SELF PAY [facility] Number: Effective Repository Date:2018-06-24 06/10/2018 JULIAN H Primary JULIAN H [place] [id number] Insurance:MEDICARE WILSFORDDOB: Community [place] PART A [facility] [id number], [place] Number: Repository [address]Pkn: [phone]) [id number] [phone] () Date:2018-06-10 06/10/2018 Secondary JULIAN H [place] Insurance:MCCOY WILSFORDDOB: [facility] Number: [id number] Hospital [id number] Repository Date: [place] [address]II: 06/10/2018 Tertiary NOT GIVENUNK [place] Insurance:SELF PAY [facility] Number: Effective Repository Date:2018-06-10 06/05/2018 JULIAN H Primary JULIAN H [place] [id number] Insurance:MEDICARE WILSFORDDOB: Community [place] PART A [facility] [id number] [place] Number: Repository [address]Nmd: (912) [id number] [phone] () Date:2017-11-07 06/05/2018 Secondary JULIAN H [place] Insurance:MCCOY WILSFORDDOB: [facility] Number: [id number] Hospital [id number] Repository Date: [place], [place] [address]ID: 06/05/2018 Tertiary NOT GIVENUNK [place] Insurance:SELF PAY [facility] Number: Effective Repository Date:2018-05-22 06/05/2018 JULIAN H Primary JULIAN H [place] [id number] Insurance:MEDICARE WILSFORDDOB: Community [place] PART A [facility] [id number], [place] Number: Repository [address]Dsq: (146) [id number] [phone] () Date:2017-11-30 06/05/2018 Secondary JULIAN H [place] Insurance:MCCOY WILSFORDDOB: Community RULEPolicy Number: [id number] Hospital [id number] [facility] [facility] [place] [address]SO: 06/05/2018 Tertiary NOT GIVENUNK [place] Insurance:SELF PAY [facility] Number: Effective Repository Date:2018-05-22 05/27/2018 J[place]IAN H Primary JULIAN H [place] [id number] Insurance:MEDICARE WILSFORDDOB: Community [place] PART A [facility] [id number], [place] Number: Repository [address]Vft: [phone]) [id number] [phone] () Date:2018-05-27 05/27/2018 Secondary JULIAN H [place] Insurance:MCCOY WILSFORDDOB: [facility] Number: [id number] Hospital [id number] Repository Date: [facility], [place] [address]XF: 05/27/2018 Tertiary NOT GIVENUNK [place] Insurance:SELF PAY [facility] Number: Effective Repository Date:2018-05-27 03/31/2018 JULIAN H Primary JULIAN H [place] [id number] Insurance:MEDICARE WILSFORDDOB: Community [place] PART A [facility] [id number], [place] Number: Repository [address]Ele: 330 [id number] [phone] () Date:2018-03-10 03/31/2018 Secondary JULIAN H [place] Insurance:MCCOY WILSFORDDOB: [facility] Number: [id number] Hospital [id number] Repository Date: [facility], [place] [address]DI: 03/31/2018 Tertiary NOT GIVENUNK [place] Insurance:SELF PAY [facility] Number: Effective Repository Date:2018-03-31 03/31/2018 JULIAN H Primary JULIAN H [place] [id number] Insurance:MEDICARE WILSFORDDOB: Community [place] PART A [facility] [id number], [place] Number: Repository [address]Sjh: 330 [id number] [phone] () Date:2018-03-10 03/31/2018 Secondary JULIAN H [place] Insurance:MCCOY WILSFORDDOB: [facility] RULEPolicy Number: [id number] Hospital [id number] Repository Date: [facility], [place] [address]WS: 03/31/2018 Tertiary NOT GIVENUNK [place] Insurance:SELF PAY [facility] Number: Effective Repository Date:2018-03-10 03/25/2018 JULIAN H Primary JULIAN H [place] [id number] Insurance:MEDICARE WILSFORDDOB: Community [place] PART A [facility] [id number] [place] Number: Repository [address]Ysi: 330 [id number] [phone] (HP) Date:2018-03-12 03/25/2018 Secondary JULIAN H [place] Insurance:[facility]CCOY [facility]ORDD[facility]: [facility] Number: [id number] Hospital [id number] Repository Date: [facility], [place] [address]IE: 03/25/2018 Tertiary NOT GIVENUNK [place] Insurance:SELF PAY [facility] Number: Effective Repository Date:2018-03-12 03/13/2018 JULIAN H Primary JULIAN H [place] [id number] Insurance:MEDICARE WILSFORDDOB: Community [place] PART A [facility] [id number], [place] Number: Repository [address]Gta: 330 [id number] [phone] (HP) Date:2018-03-10 03/13/2018 Secondary JULIAN H [place] Insurance:MCCOY WILSFORDDOB: [facility] Number: [id number] Hospital [id number] Repository Date: [facility], [place] [address]SD: 03/13/2018 Tertiary NOT GIVENUNK [place] Insurance:SELF PAY [facility] Number: Effective Repository Date:2018-03-10 03/11/2018 JULIAN H Primary JULIAN H [place] [id number] Insurance:MEDICARE WILSFORDDOB: Community [place] PART A [facility] [id number] Vista [facility] Number[place] Repository [address]Syi: [phone] [id number] [phone] () Date:2018-03-11 03/11/2018 Secondary JULIAN H [place] Insurance:[facility]CCOY [facility]ORDD[facility]: [facility] Number: [id number] Hospital [id number] Repository Date: [place], [place] [address]DC: 03/11/2018 Tertiary NOT GIVENUNK [place] Insurance:SELF PAY [facility] Number: Effective Repository Date:2018-03-11 03/10/2018 JULIAN H Primary JULIAN H [place] [id number] Insurance:MEDICARE WILSFORDDOB: Community [place] PART A [facility] [id number] Vista [facility] Number[place] Repository [address]Aec: [phone]) [id number] [phone] () Date:2018-03-10 03/10/2018 Secondary JULIAN H [place] Insurance:[facility]CCOY [facility] SERVICESS[facility]ORDDOB: [facility] Number: [id number] Hospital [id number] Repository Date: [place], [place] [address]CT: 03/10/2018 Tertiary NOT GIVENUNK [place] Insurance:SELF PAY [facility] Number: Effective Repository Date:2018-03-10 03/10/2018 JULIAN H Primary JULIAN H [place] [id number] Insurance:MEDICARE WILSFORDDOB: Community [place] PART A [facility] [id number] Vista [facility] Number[place] Repository [address]Gbw: [phone] [id number] [phone] () Date:2018-03-10 03/10/2018 Secondary JULIAN H [place] Insurance:MCCOY WILSFORDDOB: Community RULEPolicy Number: [id number] Hospital [id number] [place] Date[facility] [place] [facility] [place] [place] [address]QS: 03/10/2018 Tertiary NOT GIVENUNK [place] Insurance:SELF PAY [facility] Number: Effective Repository Date:2018-03-10 02/24/2018 JULIAN H Primary JULIAN H [place] [id number] Insurance:MEDICARE WILSFORDDOB: Community [place] PART A [facility] [id number] [place] Number: Repository [address]Oee: ([phone]) [id number] [phone] () Date:2017-11-30 02/24/2018 Secondary JULIAN H [place] Insurance:[facility]CCOY [facility]ORDD[facility]: [facility] Number: [id number] Hospital [id number] Repository Date: [facility], [place] [address]AA: 02/24/2018 Tertiary NOT GIVENUNK [place] Insurance:SELF PAY [facility] Number: Effective Repository Date:2018-02-24 01/10/2018 JULIAN H Primary JULIAN H [place] [id number] Insurance:MEDICARE WILSFORDDOB: Community [place] PART A [facility] [id number] [place] Number: Repository [address]Kzf: 330 [id number] [phone] () Date:2018-01-10 01/10/2018 Secondary JULIAN H [place] Insurance:MCCOY WILSFORDDOB: [facility] Number: [id number] Hospital [id number] Repository Date: [facility], [place] [address]PM: 01/10/2018 Tertiary NOT GIVENUNK [place] Insurance:SELF PAY [facility] Number: Effective Repository Date:2018-01-10 12/17/2017 JULIAN H Primary JULIAN H [place] [id number] Insurance:MEDICARE WILSFORDDOB: Community RAFFAE[place] PART A olic [id number] [place] Number: Repository [address]Ugy: 330 [id number] [phone] () Date:2017-02-26 12/17/2017 Secondary JULIAN H [place] Insurance:MCCOY WILSFORDDOB: [facility] Number: [id number] Hospital [id number] Repository Date: [facility], [place] [address]EV: 12/17/2017 Tertiary NOT GIVENUNK [place] Insurance:SELF PAY [facility] Number: Effective Repository Date:2017-12-17 12/09/2017 JULIAN H Primary JULIAN H [place] [id number] Insurance:MEDICARE WILSFORDDOB: Community [place] PART A [facility] [id number] Vista [facility] Number: Repository [address]Cbb: 330 [id number] [phone] () Date:2017-02-26 12/09/2017 Secondary JULIAN H [place] Insurance:MCCOY ST. [facility] SERVICESSFORDDOB: [facility] Number: [id number] [facility] [id number] Repository Date: [facility], [place] [address]KH: 12/09/2017 Tertiary NOT GIVENUNK Fernanda Insurance:SELF PAY [facility]: Effective Repository Date:2017-02-16 11/21/2017 JULIAN H Primary JULIAN H Nezperce [id number] Insurance:MEDICARE WILSFORDDOB: Community [place] PART A [facility] [id number] Number[facility] Repository [id number]: [phone] [id number] [phone] () Date:2017-08-15 11/21/2017 Secondary JULIAN H Nezperce Insurance:MCCOY WILSFORDDOB: [facility] Number: [id number] Hospital [id number] Repository Date: [facility], [place] [address]YL: 11/21/2017 Tertiary NOT GIVENUNK Nezperce Insurance:SELF PAY [facility] Effective Repository Date:2017-11-21 11/07/2017 JULIAN H Primary JULIAN H Fernanda [id number] Insurance:MEDICARE WILSFORDDOB: Community [place] PART A [facility] [id number] Number[place] Repository [id number]: [phone] [id number] [phone] () Date:2017-07-28 11/07/2017 Secondary JULIAN H Fernanda Insurance:MCCOY [facility]ICESSFORDDOB: [facility] RULEPolic Number: [id number] Hospital [id number] [facility] [place] [place] [address]JF: 11/07/2017 Tertiary NOT GIVENUNK Nezperce Insurance:SELF PAY [facility] Number: Effective Repository Date:2017-11-07 09/18/2017 JULIAN H Primary JULIAN H Fernanda [id number] Insurance:MEDICARE WILSFORDDOB: Community [place] PART A [facility] [id number] Number[place] Repository [id number]: [phone] [id number] [phone] () Date:2017-09-18 09/18/2017 Secondary JULIAN H Fernanda Insurance:MCCOY WILSFORDDOB: [facility]: [id number] Hospital [id number] Repository Date: [place], [place] [address]PH: 09/18/2017 Tertiary NOT GIVENUNK Nezperce Insurance:SELF PAY [facility] Number: Effective Repository Date:2017-09-18 09/17/2017 JULIAN H Primary JULIAN H Fernanda [id number] Insurance:MEDICARE WILSFORDDOB: Community [place] PART A [facility] [id number] Repository [id number]: [phone] [id number] [phone] () Date:2017-09-17 09/17/2017 Secondary JULIAN Michael Insurance:NADINE BOWDENB: [facility] Number: [id number] Hospital [id number] Repository Date: [place] [address]MH: 09/17/2017 Tertiary NOT GIVENUNK Fernanda Insurance:SELF PAY [facility] Number: Effective Repository Date:2017-09-17
== END 2018-09-04 18:00 | disposition home or self-care (01) ==
LOC: MTLAB 17:05
PROVIDERS: Family Provider Family Medicine Geriatric Medicine; PCP Family Medicine Geriatric Medicine; Referring Provider Internal Medicine Cardiovascular Disease; Visit Provider Internal Medicine Cardiovascular Disease
DX: I48.0 Paroxysmal atrial fibrillation (principal); Z79.01 Long term (current) use of anticoagulants; Z98.61 Coronary angioplasty status
CPT/HCPCS: 36415; 85610

== ENCOUNTER → 2018-09-22 13:30 | Outpatient (CLI) | payer MEDICARE, OTHER, SELFPAY ==
[2018-09-03 10:27] VITALS: BMI 21.2
[2018-09-22 16:22] LABS: AST(SGOT) 24 U/L (15-37); Alanine Aminotransfer ALT/SGPT 23 U/L (16-61); Albumin, Serum 3.6 g/dL (3.2-5.0); Alkaline Phosphatase 126 U/L (45-117); Anion Gap 11 (5-15); BUN 20 mg/dL (7-18); BUN/Creat Ratio 14.8 RATIO (10-20); Calcium,Total 8.6 mg/dL (8.5-10.1); Chloride 106 mmol/L (98-107); Creatinine, Serum 1.35 mg/dL (0.70-1.30); EST Glomerular Filtration Rate 54 mL/min (>60); Est Glom Filt Rate - Afr Amer 65 mL/min (>60); Globulin 3.7 g/dL (2.2-4.2); Glucose 98 mg/dL (74-106); Potassium 3.9 mmol/L (3.5-5.1); Protein, Total 7.3 g/dL (6.4-8.2); Sodium Level 142 mmol/L (136-145); Thyroid Stim Hormone (TSH) 1.23 uIU/mL (0.358-3.74); Vitamin D,25 Hydroxy 24.3 ng/mL (29.95-100.01)
[2018-09-22 16:33] LABS: Absolute Lymphocyte Count 2.07 X10^3/ul (0.83-4.51); Absolute Neutrophil Count 6.5 X10^3/uL (2.0-7.7); Basophil# 0.04 X10^3/uL; Basophil% 0.4 % (0-1); Eosinophil# 0.25 X10^3/uL; Eosinophils% 2.6 % (0-5); Hematocrit 48.9 % (40-54); Hemoglobin 16.2 g/dl (13.0-16.5); Lymphocyte # 2.07 X10^3/ul (4.0); Lymphocyte % 21.9 % (19-41); Mean Corp Hgb Conc 33.1 g/gl (32-36); Mean Corpuscular Hgb 30.4 pg (27.0-32.0); Mean Corpuscular Volume 91.7 fL (80-94); Mean Platelet Vol. 10.9 fl (6.2-12.0); Monocyte# 0.51 X10^3/uL; Monocyte% 5.4 % (0-10); Neutrophil # 6.54 X10^3/uL (2.7-7.7); Neutrophil % 69.4 % (47-70); Platelet Count 249 K/mm3 (150-450); RBC Distribution Width SD 47.2 fl (35.1-43.9); Red Blood Count 5.33 M/mm3 (4.6-6.2); White Blood Count 9.4 K/mm3 (4.4-11.0)
[2018-09-22 16:34] LABS: POSITIVE COUNT NO; POSITIVE DIFFERENTIAL NO; POSITIVE MORPHOLOGY NO
== END ==
PROVIDERS: Family Provider Family Medicine Geriatric Medicine; PCP Family Medicine Geriatric Medicine; Visit Provider Family Medicine Geriatric Medicine
DX: E55.9 Vitamin D deficiency, unspecified (principal); I10 Essential (primary) hypertension
CPT/HCPCS: 36415; 80053; 82306; 84443; 85025

== ENCOUNTER 2018-10-30 12:00 | Outpatient (RCR) | payer MEDICARE, OTHER, SELFPAY ==
--- NOTE | 2018-08-27 12:14 | HP.PTEVAL ---
Patient's Visit Information JULIAN JCAOB is a 82 year old M referred to Physical Therapy by Dariusz Gonzalez MD with a diagnosis of DIFFICULTY WITH WALKING,WEAKNESS. Date of Evaluation: 08/27/18 Physical Therapist: Sandeep Bryan PT, Cert MDT, OCS - Visit Plan Frequency: 2x /Week Duration: 4 Weeks Plan: PROGRESSIVE BALANCE ,GAIT TRAINING,BLE STRENGTHING,CONDITIONING - Subjective Findings: This 82 y/o male presents to physical therapy with difficulty walking and weakness. Patient has gradually developed weakness . Patient had one episode fall 3 weeks ago mechanical fall. Patient has difficulty with ADL'S. Stairs one steps at a time. Denies parathesia/tingling. Denies dizzzines/nausea. Patient weakness impairs QOL and function. SOCAIL: lives with family. VOCATION: retired - Objective POSTURE: mild foward posture/hip knees flexed. GAIT: slow homa unsteady decrease step length ,shuffles steps ,hips/knees flexed. NEURO:INTACT. MMT: quads/hamd 4-/5,hip flexion /abd 3+/5 ,ankle 4/5. FLEXABLITY: hams mod tight. STAIRS: one step at time rail - Balance Scores Functional Gait Assessment Score: 6 % Disability: 80.0000 CATSIB Score (Max score 120 seconds): 60 - Goals Goal 1:: Patient to be Independant with HEP Goal Time Frame: 4-6 Weeks Goal 2:: Patient to improve quality of gait with improved pattern . Goal Time Frame: 4-6 Weeks Goal 3:: Patient to increase BLE strength by 1/2 grade to improve function and gait. Goal Time Frame: 4-6 Weeks Goal 4:: Patient to improve functional gait assessment score by 5-10 points to decrease risk of falls Goal Time Frame: 4-6 Weeks Goal 5:: Patient to improve CAT-SIB SCORE BY 5-10 points to decrease risk of falls. Goal Time Frame: 4-6 Weeks Goal 6:: Patient LFES score by 5-10 points or greater to improve QOL - Rehabilitation Potential Physical Therapy Diagnosis: Patient has weakness amd impaired balance with falls unstady gait thus benifit from skilled PT. Rehabilitation Potential: Good - Anticipated Interventions Patient/Client Instruction: Educate patient on: Condition, Plan of Care For the Purpose of:: To increase tolerance to activity/condition/position, To improve performance and independence with ADL's, To decrease level of supervision to perform tasks, To improve gait and locomotor functions, To improve endurance, To improve balance, To improve safety with gait, To improve tolerance to ADL's Therapeutic Exercise to Include: Strength training, Endurance training, Balance training, Gait and locomotor training Comment: BLE For the Purpose of:: To improve muscle performance and motor function, To improve ability to perform ADL's, To increase tolerance to activity/condition/position, To improve performance and independence with ADL's, To improve ability of physical actions for home/community/work/leisure, To improve gait and locomotor functions, To improve endurance, To improve balance, To improve safety with gait, To improve health and function, To improve ability to perform tasks related to life management Thank you for the opportunity to evaluate your patient. For Medicare and Medicare HMO plans, please review the plan of care and approve it. It will need to be FAXED BACK to us at [phone] for Medicare purposes. For Medicare only, by signing this I certify the plan of care. Please let me know if there are questions or concerns regarding this plan of care. Physician Signature: Date:
--- NOTE | 2018-09-25 10:29 | HP.PTREVAL_ITS ---
Dariusz Gonzalez MD, It has been my pleasure to treat JULIAN JACOB over the last 9 visits for DIFFICULTY WITH WALKING,WEAKNESS. Please see the progress note below for an update on the physical therapy plan of care! Subjective: PT has been helping overall with my balance and strength Objective/Function: POSTURE: mild foward posture. GAIT: shuffle steps slow homa mild unsteadt. MMT: quads/hams 4/5,hip flex/abd 4-/5. BALANCE: good- Plan Plan: CONT WITH POC INTERVENTIONS 2XWK FOR 4WKS PROGRESSIVE BALANCE ,GAIT TRAINING,BLE STRENGTHING,CONDITIONING Goals Goal 1:: Patient to be Independant with HEP Goal Time Frame: 4-6 Weeks Goal 2:: Patient to improve quality of gait with improved pattern . Goal Time Frame: 4-6 Weeks Goal 3:: Patient to increase BLE strength by 1/2 grade to improve function and gait. Goal Time Frame: 4-6 Weeks Goal 4:: Patient to improve functional gait assessment score by 5-10 points to decrease risk of falls Goal Time Frame: 4-6 Weeks Goal 5:: Patient to improve CAT-SIB SCORE BY 5-10 points to decrease risk of falls. Goal Time Frame: 4-6 Weeks Goal 6:: Patient LFES score by 5-10 points or greater to improve QOL Anticipated Interventions Patient/Client Instruction: Educate patient on: Condition, Plan of Care For the Purpose of:: To increase tolerance to activity/condition/position, To i mprove performance and independence with ADL's, To decrease level of supervision to perform tasks, To improve gait and locomotor functions, To improve endurance, To improve balance, To improve safety with gait, To improve tolerance to ADL's Therapeutic Exercise to Include: Strength training, Endurance training, Balance training, Gait and locomotor training Comment: BLE For the Purpose of:: To improve muscle performance and motor function, To improve ability to perform ADL's, To increase tolerance to activity/condition/p osition, To improve performance and independence with ADL's, To improve ability of physical actions for home/community/work/leisure, To improve gait and locomotor functions, To improve endurance, To improve balance, To improve safety with gait, To improve health and function, To improve ability to perform tasks related to life management Please do not hesitate to contact me at [phone] by phone or if you have questions or concerns regarding this new plan of care! Sincerely, Sandeep Bryan, PT, Cert MDT, OCS
--- NOTE | 2018-10-30 13:31 | HP.PTDCSUM_ITS ---
HP - PT D/C Summary It has been my pleasure to treat JULIAN JACOB under orders from Dariusz Gonzalez MD, for the diagnosis of DIFFICULTY WITH WALKING,WEAKNESS for a total of 17 visit(s). Discharge Date: 10/30/18 Please see the following information for a summary of their discharge status. - Subjective Subjective: Doing better plan to join [employer] .No falls - Overall Improvement % Improvement: 80 - Objective Objective/Function: POSTURE: mild foward posture. GAIT: ambulates with shuffle steps decrease step length. MMT: quads/hams/hip flexion 4/5,ankle 5/5. BALANCE: GOOD- - Goals Goal 1:: Patient to be Independant with HEP Goal Progress: Goal Met Goal 2:: Patient to improve quality of gait with improved pattern . Goal Progress: Goal Met Goal 3:: Patient to increase BLE strength by 1/2 grade to improve function and gait. Goal Progress: Goal Met Goal 4:: Patient to improve functional gait assessment score by 5-10 points to decrease risk of falls Goal Progress: Goal Met Goal 5:: Patient to improve CAT-SIB SCORE BY 5-10 points to decrease risk of falls. Goal Progress: Goal Met Goal 6:: Patient LFES score by 5-10 points or greater to improve QOL Goal Progress: Goal Met - Plan Plan: D/C TO [facility] - D/C Information Discharge Comments: MOUNA SURESH If there are questions or concerns regarding this patient's physical therapy, please feel free to call me at [phone]. Thank you for the referral of this patient. Sincerely, Sandeep Bryan, PT, Cert MDT, OCS
== END 2018-10-30 19:00 | disposition home or self-care (01) ==
LOC: PT 12:00
PROVIDERS: Family Provider Family Medicine Geriatric Medicine; PCP Family Medicine Geriatric Medicine; Referring Provider Family Medicine Geriatric Medicine; Visit Provider Family Medicine Geriatric Medicine
DX: M62.81 Muscle weakness (generalized) (principal); R26.2 Difficulty in walking, not elsewhere classified
CPT/HCPCS: 97110; 97162; 97530

== ENCOUNTER 2018-11-19 15:45 | Outpatient (RCR) | payer MEDICARE, SELFPAY ==
[2018-09-03 10:27] VITALS: BMI 21.2
[2018-10-15 15:28] VITALS: BMI 24.3
[2018-11-19 17:34] LABS: International Normalized Ratio 2.4; Prothrombin Time (Protime)PT. 26.4 SECONDS (11.7-14.9)
== END 2018-12-16 16:00 | disposition home or self-care (01) ==
LOC: MTLAB 15:45
PROVIDERS: Family Provider Family Medicine Geriatric Medicine; PCP Family Medicine Geriatric Medicine; Referring Provider Internal Medicine Cardiovascular Disease; Visit Provider Internal Medicine Cardiovascular Disease
DX: I48.0 Paroxysmal atrial fibrillation (principal); Z79.01 Long term (current) use of anticoagulants; Z98.61 Coronary angioplasty status
CPT/HCPCS: 36415; 85610

== ENCOUNTER → 2019-03-24 | Outpatient (CLI) | payer MEDICARE, SELFPAY ==
[2018-10-15 15:28] VITALS: BMI 24.3
[2019-03-24 12:45] LABS: Absolute Neutrophil Count 5.4 X10^3/uL (2.0-7.7); Basophil# 0.08 X10^3/uL; Basophil% 0.9 % (0-1); Eosinophil# 0.37 X10^3/uL; Eosinophils% 4.3 % (0-5); Hematocrit 50.4 % (40-54); Hemoglobin 17.3 g/dL (13.0-16.5); Lymphocyte % 22.1 % (19-41); Mean Corp Hgb Conc 34.3 g/dL (32-36); Mean Corpuscular Hgb 30.7 pg (27.0-32.0); Mean Corpuscular Volume 89.4 fL (80-94); Mean Platelet Vol. 10.9 fl (6.2-12.0); Monocyte# 0.74 X10^3/uL; Monocyte% 8.6 % (0-10); NRBC Flagged by Analyzer 0 % (0-5); Neutrophil # 5.44 X10^3/uL (2.7-7.7); Neutrophil % 63.5 % (47-70); Platelet Count 254 K/mm3 (150-450); RBC Distribution Width CV 13.4 % (11.6-14.6); RBC Distribution Width SD 44.1 fl (35.1-43.9); Red Blood Count 5.64 M/mm3 (4.6-6.2); White Blood Count 8.6 K/mm3 (4.4-11.0)
[2019-03-24 13:06] LABS: ALB/GLOB Ratio 0.8 RATIO (0.9-2.4); AST(SGOT) 23 U/L (15-37); Alanine Aminotransfer ALT/SGPT 23 U/L (16-61); Albumin, Serum 3.4 g/dL (3.2-5.0); Alkaline Phosphatase 146 U/L (45-117); Anion Gap 7 (5-15); BUN 17 mg/dL (7-18); BUN/Creat Ratio 11.8 RATIO (10-20); Calcium,Total 8.8 mg/dL (8.5-10.1); Chloride 106 mmol/L (98-107); Creatinine, Serum 1.44 mg/dL (0.70-1.30); EST Glomerular Filtration Rate 50 mL/min (>60); Est Glom Filt Rate - Afr Amer 60 mL/min (>60); Glucose 84 mg/dL (74-106); Potassium 4.6 mmol/L (3.5-5.1); Protein, Total 7.4 g/dL (6.4-8.2); Sodium Level 140 mmol/L (136-145); Thyroid Stim Hormone (TSH) 2.02 uIU/mL (0.358-3.74)
== END | disposition home or self-care (01) ==
LOC: POLAB3 10:34
PROVIDERS: Family Provider Family Medicine Geriatric Medicine; PCP Family Medicine Geriatric Medicine; Visit Provider Family Medicine Geriatric Medicine
DX: I10 Essential (primary) hypertension (principal); E55.9 Vitamin D deficiency, unspecified
CPT/HCPCS: 36415; 80053; 82306; 84443; 85025

== ENCOUNTER → 2019-07-20 16:53 | Outpatient (CLI) | payer MEDICARE, OTHER, SELFPAY ==
[2019-05-12 08:46] VITALS: BMI 24.0
[2019-07-20 17:39] LABS: Absolute Lymphocyte Count 1.75 X10^3/uL (0.83-4.51); Absolute Neutrophil Count 5.5 X10^3/uL (2.0-7.7); Basophil# 0.08 X10^3/uL; Basophil% 0.9 % (0-1); Eosinophil# 0.54 X10^3/uL; Eosinophils% 6.2 % (0-5); Hematocrit 49.1 % (40-54); Hemoglobin 16.4 g/dL (13.0-16.5); Lymphocyte # 1.75 X10^3/ul (4.0); Lymphocyte % 20.1 % (19-41); Mean Corp Hgb Conc 33.4 g/dL (32-36); Mean Corpuscular Hgb 30.4 pg (27.0-32.0); Mean Corpuscular Volume 90.9 fL (80-94); Mean Platelet Vol. 10.4 fl (6.2-12.0); Monocyte# 0.74 X10^3/uL; Monocyte% 8.5 % (0-10); NRBC Flagged by Analyzer 0 % (0-5); Neutrophil # 5.53 X10^3/uL (2.7-7.7); Neutrophil % 63.7 % (47-70); Platelet Count 267 K/mm3 (150-450); RBC Distribution Width CV 13.4 % (11.6-14.6); RBC Distribution Width SD 45.1 fl (35.1-43.9); White Blood Count 8.7 K/mm3 (4.4-11.0)
[2019-07-20 18:02] LABS: ALB/GLOB Ratio 0.9 RATIO (0.9-2.4); AST(SGOT) 21 U/L (15-37); Alanine Aminotransfer ALT/SGPT 18 U/L (16-61); Albumin, Serum 3.5 g/dL (3.2-5.0); Alkaline Phosphatase 127 U/L (45-117); Anion Gap 5 (5-15); BUN 22 mg/dL (7-18); BUN/Creat Ratio 15.3 RATIO (10-20); Calcium,Total 8.8 mg/dL (8.5-10.1); Chloride 109 mmol/L (98-107); Creatinine, Serum 1.44 mg/dL (0.70-1.30); EST Glomerular Filtration Rate 50 mL/min (>60); Est Glom Filt Rate - Afr Amer 60 mL/min (>60); Globulin 3.7 g/dL (2.2-4.2); Glucose 94 mg/dL (74-106); Potassium 4.1 mmol/L (3.5-5.1); Protein, Total 7.2 g/dL (6.4-8.2); Sodium Level 142 mmol/L (136-145); Thyroid Stim Hormone (TSH) 2.02 uIU/mL (0.358-3.74)
== END ==
PROVIDERS: Family Provider Family Medicine Geriatric Medicine; PCP Family Medicine Geriatric Medicine; Visit Provider Family Medicine Geriatric Medicine
DX: S09.90XA Unspecified injury of head, initial encounter (principal); F05 Delirium due to known physiological condition; N39.0 Urinary tract infection, site not specified
CPT/HCPCS: 36415; 70450; 72040; 80053; 84443; 85025; 87086; 87088

== ENCOUNTER → 2019-07-20 17:08 | Outpatient (CLI) | payer MEDICARE, OTHER, SELFPAY ==
[2019-05-12 08:46] VITALS: BMI 24.0
--- NOTE | 2019-07-20 17:12 | CT_ITS ---
STUDY: CT BRAIN WITHOUT CONTRAST REASON FOR EXAM: Male, 83 years old. Closed head injury RADIATION DOSAGE (If Supplied By Facility): CTDIvol = ( 44.99 ) mGy, DLP = ( 829.85 ) mGycm TECHNIQUE: Transaxial CT imaging of the brain was performed without administration of intravenous contrast material. Individualized dose optimization techniques were used for this CT. COMPARISON: 15 October 2015 FINDINGS: There is a remote right frontoparietal extended craniotomy with minor expected dural thickening. There are no skull destructive lesions. There is no acute intracranial hemorrhage, extra parenchymal fluid collections, hydrocephalus or herniation. There is stable moderate chronic confluent periventricular white matter hypodensity, presumably chronic ischemic change. Appearance is similar to prior. CT/Brain/Head without Contrast IMPRESSION: 1. No acute findings, no change since prior. 2. Remote right craniotomy. Electronically Signed: Fuad Rutherford, at 17:32 EST Tel , Service support ,
--- NOTE | 2019-07-20 17:21 | RAD_ITS ---
STUDY: X-RAY - CERVICAL SPINE REASON FOR EXAM: Male, 83 years old. Trauma pain TECHNIQUE: 3 view(s) of the cervical spine were obtained. COMPARISON: None FINDINGS: Examination is technically limited for the clinical question posed. Plain films are not able to detect fractures in adults over age 50 [address] is the study of choice. There is mild posterior displacement of C1 with respect to C2, approximately 2 mm. Intact breasts are of odontoid process is unclear with a possible lucency through the base. Remainder of the cervical spine is intact with multilevel mild spondylotic anterolisthesis there are expected age-related degenerative changes. Prevertebral soft tissues are indeterminate at C1-C2 and normal otherwise. Airway is patent. Pacemaker is present in the left upper chest. RAD/Cerv Spine 2 or 3 Views IMPRESSION: 1. Questionable findings, possible odontoid fracture, unable to definitively characterize on plain films. Refer to CT. Electronically Signed: Fuad Rutherford, at 18:15 EST Tel , Service support ,
== END ==
PROVIDERS: Family Provider Family Medicine Geriatric Medicine; PCP Family Medicine Geriatric Medicine; Referring Provider Family Medicine Geriatric Medicine; Visit Provider Family Medicine Geriatric Medicine
DX: S09.90XA Unspecified injury of head, initial encounter (principal)
CPT/HCPCS: 70450; 72040

== ENCOUNTER → 2019-07-21 08:55 | Outpatient (CLI) | payer MEDICARE, OTHER, SELFPAY ==
[2019-05-12 08:46] VITALS: BMI 24.0
--- NOTE | 2019-07-21 09:06 | CT_ITS ---
We are attempting to reach an attending provider to discuss findings. An addendum with communication details will be sent when the communication is complete. STUDY: CT CERVICAL SPINE WITHOUT CONTRAST REASON FOR EXAM: Male, 83 years old. Recent fall. Abnormal x-ray. Cervical spine fracture RADIATION DOSAGE (If Supplied By Facility): CTDIvol = ( 21.51 ) mGy, DLP = ( 486.93 ) mGycm TECHNIQUE: High resolution transaxial imaging was performed without contrast material. Sagittal and coronal images were reconstructed. Individualized dose optimization techniques were used for this CT. COMPARISON: None FINDINGS: Normal craniovertebral junction. There are degenerative changes of the anterior atlantoaxial articulation. There is acute nondisplaced fracture of the base of the odontoid process. There is acute fracture of the C2 posterior spinous process. Normal cervical lordosis. There is grade 1 anterior listhesis at C4-5. Normal vertebral bodies and posterior osseous elements. C2-3: Normal endplates. Normal disc height and morphology. Normal central canal. Facet spurring. Bilateral foraminal narrowing. C3-4: Disc bulge and spurring. Facet and uncovertebral spurring with bilateral foraminal narrowing. C4-5: Disc bulge and spurring. Facet and uncovertebral spurring and bilateral foraminal narrowing. C5-6: Anterior fusion. Spurring. Normal central canal and intervertebral neuroforamina. C6-7: Anterior fusion. Spurring. Normal central canal and intervertebral neuroforamina. C7-T1: Disc space narrowing. Disc bulge and spurring. Facet spurring. Mild foraminal narrowing. Normal visualized soft tissue structures. There are atherosclerotic calcifications. CT/Spine Cervical without Contras IMPRESSION: Multilevel degenerative changes, as described above. Type II odontoid fracture. Fracture of the posterior spinous process of C2. Electronically Signed: Claude Hinds MD at 9:52 EST , Service support ,
== END ==
PROVIDERS: Family Provider Family Medicine Geriatric Medicine; PCP Family Medicine Geriatric Medicine; Referring Provider Family Medicine Geriatric Medicine; Visit Provider Family Medicine Geriatric Medicine
DX: S12.100A Unspecified displaced fracture of second cervical vertebra, initial encounter for closed fracture (principal)
CPT/HCPCS: 72125

== ENCOUNTER → 2019-09-23 16:34 | Outpatient (CLI) | payer MEDICARE, OTHER, SELFPAY ==
[2019-09-03 09:10] VITALS: BMI 24.0
[2019-09-23 17:28] LABS: Absolute Lymphocyte Count 1.44 X10^3/uL (0.83-4.51); Absolute Neutrophil Count 7.2 X10^3/uL (2.0-7.7); Basophil# 0.05 X10^3/uL; Basophil% 0.5 % (0-1); Eosinophil# 0.25 X10^3/uL; Eosinophils% 2.5 % (0-5); Hemoglobin 16.2 g/dL (13.0-16.5); Lymphocyte # 1.44 X10^3/ul (4.0); Lymphocyte % 14.6 % (19-41); Mean Corp Hgb Conc 33.1 g/dL (32-36); Mean Corpuscular Hgb 29.7 pg (27.0-32.0); Mean Corpuscular Volume 89.9 fL (80-94); Mean Platelet Vol. 10.6 fl (6.2-12.0); Monocyte% 8.1 % (0-10); NRBC Flagged by Analyzer 0 % (0-5); Neutrophil # 7.23 X10^3/uL (2.7-7.7); Neutrophil % 73.6 % (47-70); Platelet Count 258 K/mm3 (150-450); RBC Distribution Width CV 13.7 % (11.6-14.6); RBC Distribution Width SD 44.9 fl (35.1-43.9); Red Blood Count 5.45 M/mm3 (4.6-6.2); White Blood Count 9.8 K/mm3 (4.4-11.0)
[2019-09-23 17:52] LABS: ALB/GLOB Ratio 0.8 RATIO (0.9-2.4); AST(SGOT) 25 U/L (15-37); Alanine Aminotransfer ALT/SGPT 35 U/L (16-61); Albumin, Serum 3.3 g/dL (3.2-5.0); Alkaline Phosphatase 131 U/L (45-117); Anion Gap 5 (5-15); BUN 24 mg/dL (7-18); BUN/Creat Ratio 15.3 RATIO (10-20); Calcium,Total 8.8 mg/dL (8.5-10.1); Chloride 106 mmol/L (98-107); Creatinine, Serum 1.57 mg/dL (0.70-1.30); EST Glomerular Filtration Rate 45 mL/min (>60); Est Glom Filt Rate - Afr Amer 55 mL/min (>60); Globulin 4.1 g/dL (2.2-4.2); Glucose 105 mg/dL (74-106); Potassium 4.3 mmol/L (3.5-5.1); Protein, Total 7.4 g/dL (6.4-8.2); Sodium Level 138 mmol/L (136-145); Thyroid Stim Hormone (TSH) 1.82 uIU/mL (0.358-3.74); Vitamin D,25 Hydroxy 23.3 ng/mL (29.95-100.01)
== END ==
PROVIDERS: PCP Family Medicine Geriatric Medicine; Visit Provider Family Medicine Geriatric Medicine
DX: I10 Essential (primary) hypertension (principal); E55.9 Vitamin D deficiency, unspecified
CPT/HCPCS: 36415; 80053; 82306; 84443; 85025

== ENCOUNTER → 2019-09-24 15:37 | Outpatient (CLI) | payer MEDICARE, OTHER, SELFPAY ==
[2019-09-03 09:10] VITALS: BMI 24.0
--- NOTE | 2019-09-24 15:42 | CT_ITS ---
STUDY: CT CERVICAL SPINE WITHOUT CONTRAST REASON FOR EXAM: Male, 84 years old. Odontoid fracture follow up, s/p fall 07/2019. RADIATION DOSAGE (If Supplied By Facility): CTDIvol = ( 20.52 ) mGy, DLP = ( 408.57 ) mGycm TECHNIQUE: High resolution transaxial imaging was performed without contrast material. Sagittal and coronal images were reconstructed. Individualized dose optimization techniques were used for this CT. COMPARISON: July 31, 2019 FINDINGS: Normal craniovertebral junction. There are degenerative changes of the anterior atlantoaxial articulation. There is stable nonunited fracture of the base of the odontoid process. There is partial healing of C2 posterior spinous process fracture. There is no new fracture. Normal cervical lordosis. There is stable grade 1 anterolisthesis at C4-5. There is anterior cervical fusion from C5 to C7. C2-3: Normal endplates. Normal disc height and morphology. Normal central canal and intervertebral neuroforamina. Facet spurring. C3-4: Disc bulge and spurring. Facet and uncovertebral spurring with foraminal narrowing. C4-5: Mild spurring. Facet and uncovertebral spurring with foraminal narrowing. C5-6: Anterior fusion. Spurring. No canal stenosis or foraminal encroachment. C6-7: Anterior fusion. Spurring. No canal stenosis or foraminal encroachment. C7-T1: Disc space narrowing. Disc bulge and spurring. Facet spurring. Mild foraminal narrowing Normal visualized soft tissue structures. There are carotid atherosclerotic calcifications. CT/Spine Cervical without Contras IMPRESSION: Multilevel degenerative changes, as described above. Stable nonunited odontoid fracture. Partial healing of C2 posterior spinous process fracture. Electronically Signed: Claude Hinds MD at 17:49 EST , Service support ,
== END ==
PROVIDERS: PCP Family Medicine Geriatric Medicine; Referring Provider Family Medicine Geriatric Medicine; Visit Provider Family Medicine Geriatric Medicine
DX: S12.000A Unspecified displaced fracture of first cervical vertebra, initial encounter for closed fracture (principal)
CPT/HCPCS: 72125

== ENCOUNTER 2019-09-26 09:34 | Emergency (ER) | payer MEDICARE, OTHER, SELFPAY ==
[2019-09-03 09:10] VITALS: BMI 24.0
[2019-09-26 09:35] VITALS: BP 162/106; PULSE 135; RESP 20; TEMP 36.6; O2SAT 100; BMI 23.7
--- NOTE | 2019-09-26 09:54 | ED.DCSUM_ITS ---
History of Present Illness Chief Complaint: Nosebleed Detail of Chief Complaint: Spontaneous nosebleed Informant: Patient, Family Onset: Today Context: Sudden Onset - Onset 2 hours prior to arrival Timing: Continuous Quality: Bleeding Location: Right naris Current Severity: Mild Maximum Severity: Severe Worsened by: Patient on anticoagulant coronary to H fibrillation Relieved by: Pressure Associated Symptoms: None Narrative: Patient is an elderly male on Coumadin for atrial fibrillation. He presents with spontaneous epistaxis. Last time he required emergency treatment for nosebleed was 6 years ago. He denies bruising easily. Nuys black or maroon stool. Nuys blood in his urine. He denies ocular, visual auditory symptoms. He states blood initially was coming anteriorly. Now he is noticed some blood posterior after applying pressure. He does not recall when his last PT/INR was checked. He has no other complaints. Prior similar symptoms: Yes Recent Illness/Hospitalization: No - Past Medical History (1) Atherosclerotic heart disease of [place] coronary artery without angina pectoris Status: Chronic Comment: WNR-UNG-Geii LAD 09/21/2004 (2) Bundle branch block, right Status: Chronic (3) Chronic atrial fibrillation Status: Chronic (4) Essential (primary) hypertension Status: Chronic (5) Hyperlipidemia Status: Chronic (6) half-way current use of anticoagulant Status: Chronic (7) Presence of permanent cardiac pacemaker Status: Chronic Comment: Permanent Pacemaker insertion, single chamber 10/17/15, [employer] (8) Supraventricular tachycardia Status: Chronic (9) History of coronary artery stent placement Status: Resolved Comment: TCZ-YLD-Pzko LAD 09/21/2004 Past Medical History - Allergies and Home Meds Allergies/Adverse Reactions: Allergies No Known Allergies Allergy (Verified 09/26/19 09:36) Primary Care Physician: Dariusz Gonzalez Chi, MD [Primary Care Provider] - Prior records reviewed: Yes Surgical History: cataract, herniorrhaphy, pacemaker implantation, total knee arthroplasty, - Lives: Alone Smoking Status: Former smoker Alcohol: None Drugs: None - Family History Maternal Family History: Family History (Last Reviewed 05/12/19 @ 11:37 by Aristeo Lopez MD) Father CAD (coronary artery disease) Myocardial infarction Sudden cardiac Mother No problems noted. Uncle CAD (coronary artery disease) Sudden cardiac Myocardial infarction Other Heart disease Family History: Reports: No pertinent history Paternal Family History: Family History (Last Reviewed 05/12/19 @ 11:37 by Aristeo Lopez MD) Father CAD (coronary artery disease) Myocardial infarction Sudden cardiac Mother No problems noted. Uncle CAD (coronary artery disease) Sudden cardiac Myocardial infarction Other Heart disease Family History: Reports: - - father had mi at age 69 Review of Systems Eyes: Denies: Visual changes - bilaterally, Blurred Vision - bilaterally ENT: Reports: - - Spontaneous bleeding right side. Denies: Bilateral ear pain, Rhinorrhea, Sore throat Cardiovascular: Denies: Chest pain, Palpitations Respiratory: Denies: Dyspnea, Cough, Dyspnea on exertion Gastrointestinal: Denies: Abdominal pain, Nausea, Vomiting, Diarrhea, Melena, Hematochezia Genitourinary: Denies: Hematuria Musculoskeletal: Denies: Myalgias, Arthralgias Skin: Denies: Rash, Wounds Endocrine: Denies: Polyuria, Polydipsia Hematologic: Denies: Easy bruising, Easy bleeding Allergy: Denies: Uticaria, Swelling of the mouth, Swelling of the tongue Physical Exam Vital Signs/Narrative: Vital Signs Temp Pulse Resp BP Pulse Ox 09/26/19 09:35 97.9 F 135 H 20 H 162/106 H 100 Inital Vital Signs reviewed: Yes General: Well nourished, Well developed, No Acute Distress Head: Normocephalic, Atraumatic Eyes: Perrl, EOMI, - - There is no subconjunctival hemorrhage noted.. Negative for: Pale conjunctiva, Scleral icterus ENT: Moist mucous membranes, No rhinorrhea, - - Blood noted from right side. There is blood posteriorly. Uvula is midline. Neck: Supple, Nontender, No lymphadenopathy, No JVD Cardiovascular: Regular rate, No murmurs, Irregular. Negative for: Regular rhythm Respiratory: No distress, CTA bilaterally, Chest nontender Back: Nontender, Normal Inspection Extremities: Nontender, No edema Skin: Normal color, No rash Neurological: Alert, Oriented x3, Cranial nerves II-XII grossly intact, Normal Strength, Normal Sensation Psychological: Normal affect, Normal Mood Diagnostic/Tx/Re-eval - Medical Decision Making T cart and topical anesthetic was ordered. Pressure was applied. Will obtain PT/INR. Patient was informed treatment is a pack since he is on anticoagulant. He has no allergies to antibiotics. The entire septum/area over Timothy box plexus is oozing. There are large clots noted posterior pharynx. There is blood noted by the inferior turbinate. Suspect this is anterior. Since he is on anticoagulant cauterization is not recommended. A 7.5 cm Rhino Rocket was placed. Patient was observed and ambulated 30 minutes later. No bleeding noted. He was discharged with prescription for amoxicillin. He is referred to ENT. He has seen Dr. Channing Pina and Dr. Sims in the past. ED Disposition - Plan for ED Patient: Disposition: Home or Assisted Living Diagnosis: Epistaxis not due to trauma Instructions: Nosebleed Prescriptions: Amoxicillin 500 mg PO TID #14 tab Transmission Status: [id number] Referrals: Dariusz Gonzalez Chi, MD [Primary Care Provider] - Channing Park MD [STAFF PHYSICIAN] - 3-5 Days
[2019-09-26 10:15] LABS: International Normalized Ratio 2.6; Prothrombin Time (Protime)PT. 28.1 SECONDS (11.7-14.9)
[2019-09-26] MEDS: Mixture 30 ML Bottle 10 ML TOPICAL (12:30)
--- NOTE | 2019-09-26 13:20 | ED.VISSUMM ---
- ER Visit Summary Date of Service: 09/26/19 Chief Complaint: [] History of Present Illness: The patient is a 84 M [] Physical Examination: [] Test Results: [] Emergency Department Course and Treatment: [] Treatment Plan: [] Disposition: [] Impression: [] This note was generated with [employer] dictation software. It may contain incorrect words, spelling, and punctuation that were not noted in review of the chart prior to signing ED Disposition - Plan for ED Patient: Disposition: Home or Assisted Living Diagnosis: Epistaxis not due to trauma Instructions: Nosebleed Prescriptions: Amoxicillin 500 mg PO TID #14 tab Transmission Status: [id number] Referrals: Channing Park MD [STAFF PHYSICIAN] - 3-5 Days Dariusz Gonzalez Chi, MD [Primary Care Provider] - Additional Instructions: Decrease Coumadin to 2.5 mg daily as long as you are taking the antibiotic
--- NOTE | 2019-09-26 13:32 | ED.VISSUMM ---
- ER Visit Summary Date of Service: 09/26/19 Chief Complaint: [] History of Present Illness: The patient is a 84 M [] Physical Examination: [] Test Results: [] Emergency Department Course and Treatment: [] Treatment Plan: [] Disposition: [] Impression: [] This note was generated with [employer] ([employer]) dictation software. It may contain incorrect words, spelling, and punctuation that were not noted in review of the chart prior to signing ED Disposition - Plan for ED Patient: Disposition: Home or Assisted Living Diagnosis: Epistaxis not due to trauma Instructions: Nosebleed Prescriptions: Amoxicillin 500 mg PO TID #14 tab Prescription Printed Referrals: Channing Park MD [STAFF PHYSICIAN] - 3-5 Days Dariusz Gonzalez Chi, MD [Primary Care Provider] - Additional Instructions: Decrease Coumadin to 2.5 mg daily as long as you are taking the antibiotic
[2019-09-26 13:39] VITALS: BP 142/87; PULSE 107; RESP 18; O2SAT 96
== END 2019-09-26 13:40 | disposition home or self-care (01) ==
PROVIDERS: Emergency Provider Emergency Medicine; PCP Family Medicine Geriatric Medicine
DX: R04.0 Epistaxis (principal); I48.20 Chronic atrial fibrillation, unspecified; I45.10 Unspecified right bundle-branch block; I25.10 Atherosclerotic heart disease of native coronary artery without angina pectoris; I10 Essential (primary) hypertension; E78.5 Hyperlipidemia, unspecified; I47.1 Supraventricular tachycardia; Z95.0 Presence of cardiac pacemaker; Z95.5 Presence of coronary angioplasty implant and graft; Z79.01 Long term (current) use of anticoagulants; Z79.899 Other long term (current) drug therapy; Z87.891 Personal history of nicotine dependence
CPT/HCPCS: 30901; 85610; 99283; A4216

== ENCOUNTER 2019-09-27 23:01 | Emergency (ER) | payer MEDICARE, OTHER, SELFPAY ==
[2019-09-26 09:35] VITALS: BMI 23.7
[2019-09-27 23:03] VITALS: BP 140/103; PULSE 150; RESP 16; TEMP 36.1; O2SAT 100
[2019-09-27 23:04] VITALS: BP 140/103; PULSE 150; RESP 18; TEMP 36.1; O2SAT 100; BMI 23.3
--- NOTE | 2019-09-27 23:30 | EKG12_ITS ---
Test Reason : DIZZINESS Blood Pressure : / mmHG Vent. Rate : 149 BPM Atrial Rate : 129 BPM P-R Int : 000 ms QRS Dur : 084 ms QT Int : 340 ms P-R-T Axes : 000 017 201 degrees QTc Int : 535 ms Atrial fibrillation with rapid ventricular response Nonspecific ST and T wave abnormality Abnormal ECG Confirmed by BERONICA ALVARADO, MAXWELL ([id number]), web content editor DELMAR PALENCIA ([id number]) on 09/29/2019 8:05:05 AM Referred By: OSITO Confirmed By:MAXWELL LOCO MD
[2019-09-27 23:37] LABS: Absolute Lymphocyte Count 1.04 X10^3/uL (0.83-4.51); Absolute Neutrophil Count 9.8 X10^3/uL (2.0-7.7); Basophil# 0.04 X10^3/uL; Basophil% 0.3 % (0-1); Eosinophils% 0.8 % (0-5); Hematocrit 40.9 % (40-54); Hemoglobin 13.7 g/dL (13.0-16.5); Lymphocyte # 1.04 X10^3/ul (4.0); Lymphocyte % 8.8 % (19-41); Mean Corp Hgb Conc 33.5 g/dL (32-36); Mean Corpuscular Hgb 30.3 pg (27.0-32.0); Mean Corpuscular Volume 90.5 fL (80-94); Mean Platelet Vol. 10.4 fl (6.2-12.0); Monocyte# 0.82 X10^3/uL; Monocyte% 6.9 % (0-10); NRBC Flagged by Analyzer 0 % (0-5); Neutrophil # 9.75 X10^3/uL (2.7-7.7); Neutrophil % 82.4 % (47-70); Platelet Count 235 K/mm3 (150-450); RBC Distribution Width CV 13.7 % (11.6-14.6); RBC Distribution Width SD 45.3 fl (35.1-43.9); Red Blood Count 4.52 M/mm3 (4.6-6.2); White Blood Count 11.8 K/mm3 (4.4-11.0)
[2019-09-27] MEDS: dilTIAZem 25 MG/5 ML Vial IV BOLUS (23:41)
[2019-09-27 23:52] LABS: ALB/GLOB Ratio 0.8 RATIO (0.9-2.4); AST(SGOT) 17 U/L (15-37); Alanine Aminotransfer ALT/SGPT 28 U/L (16-61); Albumin, Serum 2.8 g/dL (3.2-5.0); Alkaline Phosphatase 100 U/L (45-117); Anion Gap 9 (5-15); BUN 34 mg/dL (7-18); BUN/Creat Ratio 22.7 RATIO (10-20); Calcium,Total 8.5 mg/dL (8.5-10.1); Chloride 106 mmol/L (98-107); EST Glomerular Filtration Rate 48 mL/min (>60); Est Glom Filt Rate - Afr Amer 58 mL/min (>60); Estimated Creatinine Clearance 43.38 ml/min; Globulin 3.5 g/dL (2.2-4.2); Glucose 151 mg/dL (74-106); Potassium 4.3 mmol/L (3.5-5.1); Protein, Total 6.3 g/dL (6.4-8.2); Sodium Level 139 mmol/L (136-145)
[2019-09-28] VITALS (7 sets, daily range): BP systolic 124–152; BP diastolic 88–113; PULSE 96–126; RESP 16–22; O2SAT 94–98
--- NOTE | 2019-09-28 | RAD_ITS ---
STUDY: X-RAY CHEST REASON FOR EXAM: Male, 84 years old. PT WAS GOING TO BED AROUND 2200 AND C/O DIZZINESS, DROWSY, PT BECAME LISTLESS, SLOWED SPEECH PATTERN -- DENIES ANY CHEST PAIN OR SOB -- HX OF AFIB TECHNIQUE: PA and lateral views of the chest. COMPARISON: 10/18/2015. FINDINGS: Left-sided single-lead pacemaker in place. The lungs are clear and expanded. There is no demonstrated pleural abnormality. Normal size heart. Normal mediastinum and tapan. Normal visualized pulmonary arteries. There is atherosclerotic calcification of the aortic arch with tortuosity. There is demineralization of the osseous structures. There is degenerative osteoarthritis of the bilateral shoulders. There is no demonstrated abnormality of the visualized soft tissue structures of the upper abdomen. RAD/Chest PA and Lateral IMPRESSION: No acute cardiopulmonary disease. Electronically Signed: Kim Montesinos MD at 0:40 EST , Service support ,
--- NOTE | 2019-09-28 00:09 | ED.VISSUMM ---
- ER Visit Summary Date of Service: 09/28/19 Chief Complaint: Dizziness and tachycardia History of Present Illness: The patient is a 84 M who presents with dizziness and tachycardia that began tonight approximate 1-1/2 hours prior to arrival. Patient states she is having some weakness and feeling fatigued. Patient states she was also having some difficulty talking. Patient states he has a history of atrial fibrillation that is chronic however tonight he felt his heart racing. Patient denies any shortness of breath or cough. Patient denies any nausea or vomiting. Patient denies any diaphoresis. Patient was seen here yesterday for epistaxis and had a balloon placed in his right nares. Patient has had no further episodes of bleeding from this. Patient wants this taken out tonight. Physical Examination: Vital signs are stable except for tachycardia of 150. Patient is afebrile. Patient is in no acute distress. Oral mucosa is pink and moist. Neck is supple. Trachea is midline. There is no JVD. Heart was irregularly irregular tachycardic. Lungs are clear and equal bilaterally. Abdomen is soft. Bowel sounds are normal. There is no tenderness. Cranial nerves II through XII are intact. There are no focal motor or sensory deficits noted. Extremities are intact. There is no calf tenderness or edema. Test Results: EKG shows atrial fibrillation with a rate of 149. There are no ectopic beats noted. There are nonspecific ST-T wave changes. This was unchanged compared to previous EKG dated 09/18/2017. PA and lateral chest x-ray was obtained. There is no acute cardiopulmonary process. CT scan of the brain was obtained. There is some atrophy and right sinusitis. These were interpreted by the radiologist and reviewed by myself. CBC and comprehensive metabolic profile were essentially within normal limits. Urinalysis was normal. Troponin was less than 0.015. Emergency Department Course and Treatment: Patient was given IV fluids. Patient was given a dose of Cardizem IV. Patient's heart rate improved to 108. Patient then became more tachycardic. Patient was given a oral dose of Cardizem. Patient was resting comfortably on reevaluation. Patient was requesting that his nasal packing be removed. The balloon was deflated and the packing was removed without difficulty. Patient tolerated procedure well. There is no further episodes of epistaxis. Patient still had tachycardia. Patient was given a dose of metoprolol IV and p.o. Patient's heart rate improved after this. Patient was instructed to continue his metoprolol as prescribed. Patient was instructed to follow-up with his primary care physician in 3 to 5 days. Patient understood and was agreeable with the plan. All questions were answered. Disposition: Discharge home Impression: 1. Atrial fibrillation 2. Dehydration This note was generated with The smART Peace Prizeation software. It may contain incorrect words, spelling, and punctuation that were not noted in review of the chart prior to signing ED Disposition - Plan for ED Patient: Disposition: Home or Assisted Living Diagnosis: Atrial fibrillation, Dehydration Instructions: DEHYDRATION (6y-Adult), Atrial Fibrillation Referrals: Dariusz Gonzalez Chi, MD [Primary Care Provider] - 3-5 Days
[2019-09-28 01:10] LABS: Bacteria 0 SEEN /hpf (None Seen); Mucous, Urine 0 SEEN /hpf (<or=2+); White Blood Cells 0 SEEN /hpf (0-5)
[2019-09-28 01:12] LABS: Color, Urine Yellow (Yellow); Glucose, Dipstick 50 mg/dl (Normal); Ketone-Dipstick 5 mg/dl (Negative); Leukocyte Esterase-Dipstick Negative /ul (Negative); Nitrite-Dipstick Negative (Negative); Occult Blood-Urine 10 /ul (Negative); Protein-Dipstick 30 mg/dl (Negative); Specific Gravity, Urine 1.015 (1.002-1.030); Urine Bilirubin Dipstick Negative (Negative); Urine Clarity Clear (Clear); Urine Urobilinogen Normal (Normal)
[2019-09-28 01:21] LABS: Calcium Oxalate Crystals Ur RARE /hpf (<or=2+); Hyaline Cast 10-25 SEEN /lpf (0-5); Red Blood Cells-Urine 0-5 SEEN /hpf (0-5); Squamous Epithelial Cells - UA 0-5 SEEN /hpf (0-5)
[2019-09-28] MEDS: dilTIAZem 60 MG Tablet PO (02:32)
[2019-09-28] MEDS: Metoprolol Tartrate 5 MG/5 ML Vial IV (03:51)
[2019-09-28] MEDS: Metoprolol(XL)Succ 25 MG Tablet PO (03:51)
--- NOTE | 2019-09-28 23:30 | CT_ITS ---
STUDY: CT BRAIN WITHOUT CONTRAST REASON FOR EXAM: Male, 84 years old. DIZZINESS, DROWSY, SLOWER SPEECH, WEAKNESS AT BEDTIME, BRAIN SX FROM BRAIN BLEED DUE TO FALL RADIATION DOSAGE (If Supplied By Facility): CTDIvol = ( 44.99 ) mGy, DLP = ( 863.60 ) mGycm TECHNIQUE: Transaxial CT imaging of the brain was performed without administration of intravenous contrast material. Individualized dose optimization techniques were used for this CT. COMPARISON: 07/20/2019. FINDINGS: Normal soft tissue structures. The patient is status post right-sided craniotomy. There is no skull fracture. There is mild cerebral atrophy with widening of the extra-axial spaces and ventricular dilatation. There are areas of decreased attenuation within the white matter tracts of the supratentorial brain, consistent with microvascular disease changes. Normal basal ganglia and thalami. Normal brainstem. Normal cerebellum. There is no intracranial hemorrhage. There are no findings of an acute ischemic infarction. There is air-fluid level within the right maxillary sinus with mucosal thickening of the right ethmoid and sphenoid sinus consistent with sequela of prior studies sinusitis. 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 No acute intracranial hemorrhage or space-occupying lesion. Right-sided sinusitis as described. Electronically Signed: Kim Montesinos MD at 0:41 EST , Service support ,
== END 2019-09-28 05:15 | disposition home or self-care (01) ==
PROVIDERS: Emergency Provider Emergency Medicine; PCP Family Medicine Geriatric Medicine
DX: I48.20 Chronic atrial fibrillation, unspecified (principal); E86.0 Dehydration; J32.9 Chronic sinusitis, unspecified; Z79.01 Long term (current) use of anticoagulants; Z79.899 Other long term (current) drug therapy
CPT/HCPCS: 70450; 71046; 80053; 81001; 84484; 85025; 93005; 96361; 96374; 96375; 99285; J7030; A4216

== ENCOUNTER → 2019-09-29 12:28 | Outpatient (CLI) | payer MEDICARE, OTHER, SELFPAY ==
[2019-09-27 23:04] VITALS: BMI 23.3
[2019-09-29 13:05] LABS: Absolute Lymphocyte Count 1.11 X10^3/uL (0.83-4.51); Absolute Neutrophil Count 7.4 X10^3/uL (2.0-7.7); Basophil# 0.05 X10^3/uL; Basophil% 0.5 % (0-1); Eosinophil# 0.24 X10^3/uL; Eosinophils% 2.5 % (0-5); Hematocrit 39.2 % (40-54); Lymphocyte # 1.11 X10^3/ul (4.0); Lymphocyte % 11.7 % (19-41); Mean Corp Hgb Conc 33.2 g/dL (32-36); Mean Corpuscular Volume 90.5 fL (80-94); Mean Platelet Vol. 10.4 fl (6.2-12.0); Monocyte# 0.63 X10^3/uL; Monocyte% 6.6 % (0-10); NRBC Flagged by Analyzer 0 % (0-5); Neutrophil # 7.38 X10^3/uL (2.7-7.7); Neutrophil % 77.8 % (47-70); Platelet Count 264 K/mm3 (150-450); RBC Distribution Width CV 13.5 % (11.6-14.6); RBC Distribution Width SD 45.1 fl (35.1-43.9); Red Blood Count 4.33 M/mm3 (4.6-6.2); White Blood Count 9.5 K/mm3 (4.4-11.0)
[2019-09-29 13:15] LABS: Anion Gap 3 (5-15); BUN 25 mg/dL (7-18); BUN/Creat Ratio 18.7 RATIO (10-20); Calcium,Total 8.6 mg/dL (8.5-10.1); Chloride 106 mmol/L (98-107); Creatinine, Serum 1.34 mg/dL (0.70-1.30); EST Glomerular Filtration Rate 54 mL/min (>60); Est Glom Filt Rate - Afr Amer 66 mL/min (>60); Glucose 95 mg/dL (74-106); Potassium 4.3 mmol/L (3.5-5.1); Sodium Level 137 mmol/L (136-145)
== END ==
PROVIDERS: PCP Family Medicine Geriatric Medicine; Visit Provider Family Medicine Geriatric Medicine
DX: M54.2 Cervicalgia (principal); D64.9 Anemia, unspecified
CPT/HCPCS: 36415; 72050; 80048; 85025

== ENCOUNTER → 2019-09-29 14:32 | Outpatient (CLI) | payer MEDICARE, OTHER, SELFPAY ==
[2019-09-27 23:04] VITALS: BMI 23.3
--- NOTE | 2019-09-29 14:33 | RAD_ITS ---
STUDY: X-RAY - CERVICAL SPINE REASON FOR EXAM: Male, 84 years old. Follow-up odontoid fracture. TECHNIQUE: 4 view(s) of the cervical spine were obtained. COMPARISON: CT cervical spine 09/24/2019 FINDINGS: The type II odontoid fracture is again demonstrated. The fracture line remains visible. With extension, the anterior aspect of the fracture widens about 2 mm, and closes with flexion. Besides this mild angulation of the cephalad fracture fragment, there is no other instability. No new fractures are evident. Prominent degenerative changes lower lumbar spine, with mild degenerative anterolisthesis of C3 on C4 and C4 on C5 which does not appreciably change with flexion or extension, and with likely degenerative in nature fusion of the C5-6 and C6-7 disc spaces. No acute osseous abnormality. Implanted cardiac device partially visible. RAD/Cerv Spine 4 or 5 Views IMPRESSION: The odontoid fracture line remains visible, and there is a small amount of angulation of the fracture with flexion and extension. Electronically Signed: Fermin Parmar, at 23:21 EST Tel , Service support ,
== END ==
PROVIDERS: PCP Family Medicine Geriatric Medicine; Referring Provider Orthopaedic Surgery; Visit Provider Orthopaedic Surgery
DX: M54.2 Cervicalgia (principal)
CPT/HCPCS: 72050

== ENCOUNTER 2019-10-06 05:29 | Emergency (ER) | payer MEDICARE, OTHER, SELFPAY ==
[2019-10-01 15:49] VITALS: BMI 23.5
[2019-10-06 05:30] VITALS: BP 156/112; PULSE 131; RESP 18; TEMP 36.3; O2SAT 94; BMI 24.1
--- NOTE | 2019-10-06 05:32 | EKG12_ITS ---
Test Reason : CP Blood Pressure : / mmHG Vent. Rate : 115 BPM Atrial Rate : 136 BPM P-R Int : 000 ms QRS Dur : 084 ms QT Int : 368 ms P-R-T Axes : 000 048 064 degrees QTc Int : 509 ms Atrial fibrillation with rapid ventricular response with premature ventricular or aberrantly conducte d complexes Nonspecific ST and T wave abnormality Abnormal ECG Confirmed by RUBI HADLEY ([id number]), editorial specialist CATHERINE MATA ([id number]) on 10/08/2019 9:35:13 AM Referred By: ELISE Confirmed By:RUBI HADLEY
[2019-10-06] MEDS: Mixture 30 ML Bottle 10 ML TOPICAL (05:40)
--- NOTE | 2019-10-06 05:48 | ED.VIS.GEN ---
History of Present Illness Chief Complaint: Nosebleed Informant: Patient Onset: Today Timing: Continuous Narrative: Patient is an 84-year-old male with history of A. fib on Coumadin presenting with recurrent epistaxis. Patient was seen 1 week ago for epistaxis. Had nasal packing placed. He came back couple days later because he was having some dizziness. At that time his nasal packing was removed. Patient states he started having bleeding again tonight. Is been off and on since 2 AM. He denies associated pain. He denies any other complaints at this time. He states his been compliant with all medications. He does not recall being referred to ENT for follow-up. He has not followed up. I will patient was in the ER last time he was found to be in A. fib with RVR. That was treated with IV Cardizem. Patient states he has been feeling fine he just wants to get his bleeding to stop in his nose. It is from the right side. He denies any lightheadedness or dizziness at this time. Past Medical History - Allergies and Home Meds Allergies/Adverse Reactions: Allergies No Known Allergies Allergy (Verified 10/01/19 15:55) Primary Care Physician: Dariusz Gonzalez Chi, MD [Primary Care Provider] - Past Medical History: - - Atrial fibrillation, hyperlipidemia, hypertension, coronary artery disease Surgical History: cataract, herniorrhaphy, pacemaker implantation, total knee arthroplasty, - Smoking Status: Former smoker - Family History Maternal Family History: Family History (Last Reviewed 10/01/19 @ 16:05 by Barbara Varela) Father CAD (coronary artery disease) Myocardial infarction Sudden cardiac Mother No problems noted. Uncle CAD (coronary artery disease) Sudden cardiac Myocardial infarction Other Heart disease Family History: Reports: No pertinent history Paternal Family History: Family History (Last Reviewed 10/01/19 @ 16:05 by Barbara Varela) Father CAD (coronary artery disease) Myocardial infarction Sudden cardiac Mother No problems noted. Uncle CAD (coronary artery disease) Sudden cardiac Myocardial infarction Other Heart disease Family History: Reports: - - father had mi at age 69 Review of Systems General: Denies: Chills, Fever, Sweats Eyes: Denies: Visual changes - bilaterally, Diplopia ENT: Reports: - - right epistaxis . Denies: Rhinorrhea, Sore throat Cardiovascular: Denies: Chest pain, Palpitations Respiratory: Denies: Dyspnea, Cough, Dyspnea on exertion Gastrointestinal: Denies: Abdominal pain, Nausea, Vomiting, Diarrhea, Melena, Hematochezia Genitourinary: Denies: Dysuria, Hematuria, Frequency Musculoskeletal: Denies: Back pain, Extremity Pain Skin: Denies: Rash, Wounds Neurological: Denies: Headache, Weakness, Numbness Physical Exam Vital Signs/Narrative: Vital Signs Temp Pulse Resp BP Pulse Ox 10/06/19 05:30 97.4 F L 131 H 18 156/112 H 94 Inital Vital Signs reviewed: Yes General: Well nourished, Well developed, No Acute Distress Head: Normocephalic, Atraumatic Eyes: Perrl, EOMI ENT: Moist mucous membranes, No rhinorrhea, - - No active bleeding of the right nares. Blood vessel that is prominent in the right nasal septum is noted which is likely the source of his bleeding. Dried blood is noted throughout the nose. No blood noted in the oropharynx. Neck: Supple, Nontender Cardiovascular: No murmurs, Irregular, Tachycardia Respiratory: No distress, CTA bilaterally, Chest nontender Abdomen: Soft, Nontender, Nondistended, Normal bowel sounds Back: Nontender, Normal Inspection Extremities: Nontender, No edema Skin: Normal color, No rash Neurological: Alert, Oriented x3, Cranial nerves II-XII grossly intact, Normal Strength, Normal Sensation Psychological: Normal affect, Normal Mood Diagnostic/Tx/Re-eval Laboratory Data 10/06/19 10/06/19 10/06/19 05:45 05:45 05:45 WBC 8.8 RBC 4.52 L Hgb 13.9 Hct 40.8 MCV 90.3 MCH 30.8 MCHC 34.1 RDW Std Deviation 44.6 H RDW Coeff of Carolyn 13.5 Plt Count 346 MPV 9.2 Immature Gran % (Auto) 1.000 H Neut % (Auto) 77.2 H Lymph % (Auto) 11.7 L [place] % (Auto) 5.9 Eos % (Auto) 3.4 Baso % (Auto) 0.8 Absolute Neuts (auto) 6.8 Absolute Lymphs (auto) 1.03 Nucleated RBC % 0 PT 21.1 H INR 1.8 Sodium 138 Potassium 3.7 Chloride 105 Carbon Dioxide 29.0 Anion Gap 4 L BUN 18 Creatinine 1.18 Estim Creat Clear Calc 55.15 Est GFR (MDRD) Af Amer 76 Est GFR (MDRD) Non-Af 63 BUN/Creatinine Ratio 15.3 Glucose 98 Calcium 8.5 Troponin I < 0.015 - Rhythm Strip Rhythm Strip: A-fib Rate: 115 Ectopy: None - EKG Initial EKG Interpretation: Atrial Fibrillation, - - A. fib with RVR at a rate of [address] segments Compared to prior EKG patient has no changes - Medical Decision Making Is evaluated for epistaxis. He has minimal bleeding on my initial evaluation. He does not have any retained blood clots. He has no bleeding in the posterior pharynx is visualized. It does appear that this is an anterior bleed. Patient is found to be tachycardic. He does have a history of atrial fibrillation. He is otherwise asymptomatic. Patient's INR is 1.8 today. Troponin is normal. EKG does show A. fib with RVR. Patient does not appear to have any signs of strain. He is given an extra dose of his metoprolol XL 50 mg. He does start to have heart rate improvement while in the emergency room. He remains asymptomatic throughout his stay. Patient is requesting cautery to his nose. Patient is counseled that there is a risk that he could have increased bleeding once the scab falls off. He states he is aware and would still like to be cauterized. Patient's right nares is packed with cotton ball soaked in Xavier solution. Silver nitrate stick is used to cauterize the right nasal septum where the bleeding appears to be originated from. Patient tolerated this well. Does not have further bleeding. He does have a follow-up appointment Dr. Aguirre on , 3 days from now. He is encouraged to keep this. He is instructed to call his communications billing analyst for further Coumadin recommendations as he was slightly subtherapeutic. He is also encouraged to keep an eye on his heart rate at home and call his communications billing analyst to see if he needs any medication changes should he continue to be tachycardic. Chart review does show that patient followed up for an episode of A. fib with RVR in the office last week and his heart rate was 78 at that time. I am not sure if anxiety associated with being in the ER as was causing his heart rate to be so high. Patient is counseled on signs and symptoms requiring return to the emergency room. Patient verbalizes agreement and understand this plan. Patient discharged home in stable and improved condition. ED Disposition - Plan for ED Patient: Disposition: Home or Assisted Living Diagnosis: Anterior epistaxis, Atrial fibrillation with RVR, Subtherapeutic anticoagulation Instructions: Nosebleed Referrals: Dariusz Gonzalez Chi, MD [Primary Care Provider] - Russel Aguirre MD [STAFF PHYSICIAN] - (as scheduled ) Additional Instructions: Your INR level today was 1.8. Please talk to your communications billing analyst for further recommendations of Coumadin treatment. Please make sure you keep your follow-up appointment with Dr. Aguirre on for ENT. Your heart rate was elevated today. Everything else looked normal. I am not sure if you need any medication changes at this time but please keep an eye on your heart rate at home. If you notice that you are going above 110 frequently please bring this up with a communications billing analyst. If you start to feel dizzy, lightheaded, short of breath or have chest pain please come to the emergency room.
[2019-10-06 05:53] LABS: Absolute Lymphocyte Count 1.03 X10^3/uL (0.83-4.51); Absolute Neutrophil Count 6.8 X10^3/uL (2.0-7.7); Basophil# 0.07 X10^3/uL; Basophil% 0.8 % (0-1); Eosinophils% 3.4 % (0-5); Hematocrit 40.8 % (40-54); Hemoglobin 13.9 g/dL (13.0-16.5); Lymphocyte # 1.03 X10^3/ul (4.0); Lymphocyte % 11.7 % (19-41); Mean Corp Hgb Conc 34.1 g/dL (32-36); Mean Corpuscular Hgb 30.8 pg (27.0-32.0); Mean Corpuscular Volume 90.3 fL (80-94); Mean Platelet Vol. 9.2 fl (6.2-12.0); Monocyte# 0.52 X10^3/uL; Monocyte% 5.9 % (0-10); NRBC Flagged by Analyzer 0 % (0-5); Neutrophil # 6.83 X10^3/uL (2.7-7.7); Neutrophil % 77.2 % (47-70); Platelet Count 346 K/mm3 (150-450); RBC Distribution Width CV 13.5 % (11.6-14.6); RBC Distribution Width SD 44.6 fl (35.1-43.9); Red Blood Count 4.52 M/mm3 (4.6-6.2); White Blood Count 8.8 K/mm3 (4.4-11.0)
[2019-10-06 06:06] LABS: International Normalized Ratio 1.8; Prothrombin Time (Protime)PT. 21.1 SECONDS (11.7-14.9)
[2019-10-06] MEDS: Metoprolol(XL)Succ 50 MG Tablet PO (06:09)
[2019-10-06 06:13] LABS: Anion Gap 4 (5-15); BUN 18 mg/dL (7-18); BUN/Creat Ratio 15.3 RATIO (10-20); Calcium,Total 8.5 mg/dL (8.5-10.1); Chloride 105 mmol/L (98-107); Creatinine, Serum 1.18 mg/dL (0.70-1.30); EST Glomerular Filtration Rate 63 mL/min (>60); Est Glom Filt Rate - Afr Amer 76 mL/min (>60); Estimated Creatinine Clearance 55.15 ml/min; Glucose 98 mg/dL (74-106); Potassium 3.7 mmol/L (3.5-5.1); Sodium Level 138 mmol/L (136-145)
[2019-10-06 06:58] VITALS: PULSE 107; RESP 17; O2SAT 99
[2019-10-06 07:54] VITALS: BP 140/101; PULSE 113; RESP 16; TEMP 36.6; O2SAT 98
== END 2019-10-06 07:55 | disposition home or self-care (01) ==
PROVIDERS: Emergency Provider Emergency Medicine; PCP Family Medicine Geriatric Medicine
DX: R04.0 Epistaxis (principal); I48.91 Unspecified atrial fibrillation; R79.1 Abnormal coagulation profile; I10 Essential (primary) hypertension; E78.5 Hyperlipidemia, unspecified; I25.10 Atherosclerotic heart disease of native coronary artery without angina pectoris; Z95.0 Presence of cardiac pacemaker; Z79.01 Long term (current) use of anticoagulants; Z79.899 Other long term (current) drug therapy; Z87.891 Personal history of nicotine dependence
CPT/HCPCS: 30901; 80048; 84484; 85025; 85610; 93005; 99284; A4216

== ENCOUNTER 2019-12-26 10:25 | Emergency (ER) | payer MEDICARE, OTHER, SELFPAY ==
[2019-12-15 09:10] VITALS: BMI 23.7
[2019-12-26 10:27] VITALS: BP 145/87; PULSE 95; RESP 18; TEMP 36.6; O2SAT 99; BMI 23.1
--- NOTE | 2019-12-26 10:41 | CT_ITS ---
STUDY: CT BRAIN WITHOUT CONTRAST REASON FOR EXAM: Male, 84 years old. FALL yesterday with prior subdural and cervical neck fx in past RADIATION DOSAGE (If Supplied By Facility): CTDIvol = ( 44.99 ) mGy, DLP = ( 846.73 ) mGycm TECHNIQUE: Transaxial CT imaging of the brain was performed without administration of intravenous contrast material. Individualized dose optimization techniques were used for this CT. COMPARISON: September 28, 2019 FINDINGS: Normal soft tissue structures. Right-sided postsurgical changes of calvarium. Normal size ventricles and extra-axial spaces for the patient''s age. Bilateral white matter microangiopathic ischemic changes acts of the cerebral hemispheres. Normal basal ganglia and thalami. Normal brainstem. Normal cerebellum. There is no intracranial hemorrhage. There are no findings of an acute ischemic infarction. Normal visualized paranasal sinuses. Possible packing within the left nostril. CT/Brain/Head without Contrast IMPRESSION: Relatively stable age-related and chronic changes of the brain. Electronically Signed: Deven Smart DO at 11:40 EDT Tel [phone], Service support ,
--- NOTE | 2019-12-26 10:41 | CT_ITS ---
STUDY: CT CERVICAL SPINE WITHOUT CONTRAST REASON FOR EXAM: Male, 84 years old. FALL yesterday with prior subdural and cervical neck fx in past RADIATION DOSAGE (If Supplied By Facility): CTDIvol = ( 21.47 ) mGy, DLP = ( 478.48 ) mGycm TECHNIQUE: High resolution transaxial imaging was performed without contrast material. Sagittal and coronal images were reconstructed. Individualized dose optimization techniques were used for this CT. COMPARISON: September 24, 2019 FINDINGS: Normal craniovertebral junction. Normal anterior atlantoaxial articulation. Relatively stable old fracture is again noted of the odontoid process. Straightening of the cervical lordosis. Normal vertebral bodies and posterior osseous elements. C2-3: Normal endplates. Normal disc height and morphology. Bilateral degenerative facet hypertrophy. Normal central canal and intervertebral neuroforamina. C3-4: Normal endplates. Normal disc height and morphology. Normal central canal. Facet hypertrophy narrowing the intervertebral neuroforamina. C4-5: Spurring at the endplates. Normal disc height and morphology. Normal central canal. Facet hypertrophy narrowing the intervertebral neuroforamina. C5-6: Mild spurring at the endplates. Narrowed disc height. Normal central canal and intervertebral neuroforamina. C6-7: Mild spurring at the endplates. Narrowed disc height. Normal central canal and intervertebral neuroforamina. C7-T1: Spurring at the endplates. Narrowed disc height. Normal central canal and intervertebral neuroforamina. Normal visualized soft tissue structures. Degenerative endplate spurring and disc space narrowing at T1-2. CT/Spine Cervical without Contras IMPRESSION: Degenerative changes of the cervical spine. Relatively stable old odontoid fracture. Electronically Signed: Deven Smart DO at 11:56 EDT Tel [phone], Service support ,
--- NOTE | 2019-12-26 10:45 | CT_ITS ---
STUDY: CT FACIAL BONES WITHOUT CONTRAST REASON FOR EXAM: Male, 84 years old. FALL yesterday with prior subdural and cervical neck fx in past RADIATION DOSAGE (If Supplied By Facility): CTDIvol = ( 29.38 ) mGy, DLP = ( 576.84 ) mGycm TECHNIQUE: The patient was scanned in a multi detector CT scanner. Sagittal and coronal images were reconstructed. Individualized dose optimization techniques were used for this CT. COMPARISON: None. FINDINGS: Normal soft tissue structures. Normal orbital dyson and orbital contents. Normal nasal bones and anterior nasal spine. Normal facial bones. There is no demonstrated fracture. Minimal mucosal thickening of the visualized paranasal sinuses. Probable packing is noted within the left nostril. CT/Sinus/Facial Bone IMPRESSION: No acute bony injury of the facial bones. Electronically Signed: Deven Smart DO at 11:50 EDT Tel [phone], Service support ,
--- NOTE | 2019-12-26 10:46 | ED.VIS.GEN ---
History of Present Illness Chief Complaint: Fall Narrative: 84-year-old male on Coumadin fell yesterday mechanically. He missed a step and struck his forehead. He did not lose consciousness. He was able to get back up on his own. He sustained an abrasion to his right knee but does not have pain there. He has been ambulating without difficulty. He placed 2 tampons in his nose and his nasal bleeding stopped but he is concerned that it will bleed again if he removes the tampon. He also has slight neck pain but denies any other injuries. Onset was sudden. Severity mild. He did not feel lightheaded prior to the fall, it was strictly mechanical. Capacity - Capacity Assessment Tool Can the patient make a choice & communicate that choice?: Yes Past Medical History - Allergies and Home Meds Allergies/Adverse Reactions: Allergies No Known Allergies Allergy (Verified 12/26/19 10:29) Primary Care Physician: Dariusz Gonzalez Chi, MD [Primary Care Provider] - Surgical History: cataract, herniorrhaphy, pacemaker implantation, total knee arthroplasty, - Smoking Status: Former smoker - Family History Maternal Family History: Family History (Last Reviewed 12/15/19 @ 11:[address] Aristeo Lopez MD) Father CAD (coronary artery disease) Myocardial infarction Sudden cardiac Mother No problems noted. Uncle CAD (coronary artery disease) Sudden cardiac Myocardial infarction Other Heart disease Family History: Reports: No pertinent history Paternal Family History: Family History (Last Reviewed 12/15/19 @ 11:[address] Aristeo Lopez MD) Father CAD (coronary artery disease) Myocardial infarction Sudden cardiac Mother No problems noted. Uncle CAD (coronary artery disease) Sudden cardiac Myocardial infarction Other Heart disease Family History: Reports: - - father had mi at age 69 Review of Systems General: Denies: Chills, Fever, Sweats Eyes: Denies: Visual changes - bilaterally, Diplopia ENT: Denies: Rhinorrhea, Sore throat Cardiovascular: Denies: Chest pain, Palpitations Respiratory: Denies: Dyspnea, Cough, Dyspnea on exertion Gastrointestinal: Denies: Abdominal pain, Nausea, Vomiting, Diarrhea, Melena, Hematochezia Genitourinary: Denies: Dysuria, Hematuria, Frequency Musculoskeletal: Reports: Neck pain. Denies: Back pain, Extremity Pain Skin: Denies: Rash, Wounds Neurological: Reports: Headache. Denies: Weakness, Numbness Hematologic: Reports: Easy bleeding Physical Exam Vital Signs/Narrative: Vital Signs Temp Pulse Resp BP Pulse Ox 12/26/19 10:27 97.8 F 95 18 145/87 H 99 General: Well nourished, Well developed, No Acute Distress Head: Normocephalic, Trauma Eyes: Perrl, EOMI ENT: No rhinorrhea, - - abrasions, forehead, bilateral hands, right knee, nothing full thickness. Neck: Supple, Nontender Cardiovascular: Regular rate, Regular rhythm, No murmurs Respiratory: No distress, CTA bilaterally, Chest nontender Abdomen: Soft, Nontender, Nondistended, Normal bowel sounds Back: Nontender, Normal Inspection Extremities: Nontender, No edema Skin: Normal color, No rash Neurological: Alert, Oriented x3, Cranial nerves II-XII grossly intact, Normal Strength, Normal Sensation Psychological: Normal affect, Normal Mood Diagnostic/Tx/Re-eval - Medical Decision Making CT head, face, and cervical spine all negative for acute process. No lacerations that require repair. No evidence of bony injury anywhere. He can ambulate without difficulty. Neurologic exam is normal. He is at baseline mental status. INR is 1.8. Labs are unremarkable. No recent infection. The fall was mechanical. At this point, it appears that he can safely be discharged home. Return precautions were explained at length to family. ED Disposition - Plan for ED Patient: Disposition: Home or Assisted Living Diagnosis: Concussion without loss of consciousness, initial encounter, Facial contusion, Epistaxis due to trauma, Cervical sprain, Abrasion Instructions: ED Abrasion, ED SOFT TISSUE CONTUSION, ED Concussion, ED Mechanical Fall, ED Epistaxis Ch Referrals: Dariusz Gonzalez Chi, MD [Primary Care Provider] - (as needed)
[2019-12-26] MEDS: 0.9% Normal Saline 1,000 ML 1000 ML IV (10:55)
[2019-12-26 11:07] LABS: Absolute Lymphocyte Count 1.69 X10^3/uL (0.83-4.51); Absolute Neutrophil Count 6.5 X10^3/uL (2.0-7.7); Basophil# 0.07 X10^3/uL; Basophil% 0.8 % (0-1); Eosinophil# 0.14 X10^3/uL; Eosinophils% 1.5 % (0-5); Hematocrit 47.8 % (40-54); Hemoglobin 15.8 g/dL (13.0-16.5); Lymphocyte # 1.69 X10^3/ul (4.0); Lymphocyte % 18.6 % (19-41); Mean Corp Hgb Conc 33.1 g/dL (32-36); Mean Corpuscular Hgb 28.4 pg (27.0-32.0); Mean Corpuscular Volume 85.8 fL (80-94); Monocyte# 0.67 X10^3/uL; Monocyte% 7.4 % (0-10); NRBC Flagged by Analyzer 0 % (0-5); Neutrophil # 6.47 X10^3/uL (2.7-7.7); Neutrophil % 71.1 % (47-70); Platelet Count 287 K/mm3 (150-450); RBC Distribution Width CV 13.8 % (11.6-14.6); RBC Distribution Width SD 43.8 fl (35.1-43.9); Red Blood Count 5.57 M/mm3 (4.6-6.2); White Blood Count 9.1 K/mm3 (4.4-11.0)
[2019-12-26 11:15] LABS: International Normalized Ratio 1.8; Prothrombin Time (Protime)PT. 20.4 SECONDS (11.7-14.9)
[2019-12-26 11:26] VITALS: BP 139/104; PULSE 104; RESP 16; O2SAT 99
[2019-12-26 11:35] LABS: Anion Gap 7 (5-15); BUN 25 mg/dL (7-18); BUN/Creat Ratio 16.6 RATIO (10-20); Calcium,Total 8.8 mg/dL (8.5-10.1); Chloride 102 mmol/L (98-107); Creatinine, Serum 1.51 mg/dL (0.70-1.30); EST Glomerular Filtration Rate 47 mL/min (>60); Est Glom Filt Rate - Afr Amer 57 mL/min (>60); Estimated Creatinine Clearance 42.81 ml/min; Glucose 114 mg/dL (74-106); Sodium Level 138 mmol/L (136-145)
[2019-12-26 12:10] VITALS: BP 139/98; PULSE 97; RESP 18; O2SAT 99
== END 2019-12-26 12:11 | disposition home or self-care (01) ==
PROVIDERS: Emergency Provider Emergency Medicine; PCP Family Medicine Geriatric Medicine
DX: S06.0X0A Concussion without loss of consciousness, initial encounter (principal); S00.83XA Contusion of other part of head, initial encounter; R04.0 Epistaxis; S13.4XXA Sprain of ligaments of cervical spine, initial encounter; S80.211A Abrasion, right knee, initial encounter; W10.9XXA Fall (on) (from) unspecified stairs and steps, initial encounter; Y93.9 Activity, unspecified; Y92.9 Unspecified place or not applicable; Z95.0 Presence of cardiac pacemaker; Z79.01 Long term (current) use of anticoagulants; Z87.891 Personal history of nicotine dependence
CPT/HCPCS: 70450; 70486; 72125; 80048; 85025; 85610; 96360; 99283; J7030

== ENCOUNTER 2019-12-28 07:26 | Emergency (ER) | payer MEDICARE, OTHER, SELFPAY ==
[2019-12-28 07:27] VITALS: BP 160/84; PULSE 91; RESP 17; TEMP 36.1; O2SAT 97; BMI 23.1
--- NOTE | 2019-12-28 07:45 | ED.VIS.GEN ---
History of Present Illness Chief Complaint: Nosebleed Informant: Patient Onset: Today Narrative: Patient states that he developed a left epistaxis during the night. He is on Coumadin. He applied a nose clamp for the past 2 hours. He has not seen any further bleeding. Patient recently fell and sustained facial contusions. CTs were negative. Past Medical History - Allergies and Home Meds Allergies/Adverse Reactions: Allergies No Known Allergies Allergy (Verified 12/28/19 07:27) Primary Care Physician: Dariusz Gonzalez Chi, MD [Primary Care Provider] - Surgical History: cataract, herniorrhaphy, pacemaker implantation, total knee arthroplasty, - Smoking Status: Unknown if ever smoked - Family History Maternal Family History: Family History (Last Reviewed 12/15/19 @ 11:[address] Aristeo Lopez MD) Father CAD (coronary artery disease) Myocardial infarction Sudden cardiac Mother No problems noted. Uncle CAD (coronary artery disease) Sudden cardiac Myocardial infarction Other Heart disease Family History: Reports: No pertinent history Paternal Family History: Family History (Last Reviewed 12/15/19 @ 11:[address] Aristeo Lopez MD) Father CAD (coronary artery disease) Myocardial infarction Sudden cardiac Mother No problems noted. Uncle CAD (coronary artery disease) Sudden cardiac Myocardial infarction Other Heart disease Family History: Reports: - - father had mi at age 69 Review of Systems General: Denies: Chills, Fever, Sweats Eyes: Denies: Visual changes - bilaterally, Diplopia ENT: Reports: - - Nosebleed. Denies: Rhinorrhea, Sore throat Cardiovascular: Denies: Chest pain, Palpitations Respiratory: Denies: Dyspnea, Cough, Dyspnea on exertion Gastrointestinal: Denies: Abdominal pain, Nausea, Vomiting, Diarrhea, Melena, Hematochezia Genitourinary: Denies: Dysuria, Hematuria, Frequency Musculoskeletal: Denies: Back pain, Extremity Pain Skin: Denies: Rash, Wounds Neurological: Denies: Headache, Weakness, Numbness Physical Exam Vital Signs/Narrative: Vital Signs Temp Pulse Resp BP Pulse Ox 12/28/19 07:27 96.9 F L 91 17 160/84 H 97 Inital Vital Signs reviewed: Yes General: Well nourished, Well developed, No Acute Distress Head: Normocephalic, Trauma - Facial contusions Eyes: Perrl, EOMI ENT: Moist mucous membranes, No rhinorrhea, - - Nasal clamp was removed. There is a small amount of dried blood which was cleared by the patient blowing. I do not see any active bleeding. I do not see any obvious anterior source with evidence of a recent bleed. There is no blood in the oropharynx. Neck: Supple, Nontender Cardiovascular: Regular rate, Regular rhythm, No murmurs Respiratory: No distress, CTA bilaterally, Chest nontender Abdomen: Soft, Nontender, Nondistended, Normal bowel sounds Back: Nontender, Normal Inspection Extremities: Nontender, No edema Skin: Normal color, No rash Neurological: Alert, Oriented x3, Cranial nerves II-XII grossly intact, Normal Strength, Normal Sensation Psychological: Normal affect, Normal Mood Diagnostic/Tx/Re-eval - Medical Decision Making I explained to the patient that he is not actively bleeding. I gave him the option of having a packing at this time if he rebleeds I will have him use his nose clamp again. If he is unable to control it with that he should return for nasal packing. Given ENT for follow-up if he wishes to go there. He just had his INR checked at his last visit was 1.8. Would not expect him to be supratherapeutic. ED Disposition - Plan for ED Patient: Disposition: Home or Assisted Living Diagnosis: Epistaxis Instructions: ED Epistaxis Adult Referrals: Dariusz Gonzalez Chi, MD [Primary Care Provider] - Keep Arthur appointment Selwyn Hayes MD [STAFF PHYSICIAN] - (call for ENT if you would like to follow up with them)
== END 2019-12-28 08:09 | disposition home or self-care (01) ==
LOC: ED 08:02
PROVIDERS: Emergency Provider Emergency Medicine; PCP Family Medicine Geriatric Medicine
DX: R04.0 Epistaxis (principal); S00.83XA Contusion of other part of head, initial encounter; W19.XXXA Unspecified fall, initial encounter; Y93.9 Activity, unspecified; Y92.9 Unspecified place or not applicable; Z79.01 Long term (current) use of anticoagulants
CPT/HCPCS: 99282

== ENCOUNTER → 2020-01-22 12:48 | Outpatient (CLI) | payer MEDICARE, OTHER, SELFPAY ==
[2019-12-28 07:27] VITALS: BMI 23.1
[2020-01-22 13:12] LABS: Absolute Lymphocyte Count 1.62 X10^3/uL (0.83-4.51); Basophil# 0.06 X10^3/uL; Basophil% 0.5 % (0-1); Eosinophil# 0.09 X10^3/uL; Eosinophils% 0.8 % (0-5); Hematocrit 49.7 % (40-54); Hemoglobin 16.4 g/dL (13.0-16.5); Lymphocyte # 1.62 X10^3/ul (4.0); Mean Corpuscular Hgb 28.5 pg (27.0-32.0); Mean Corpuscular Volume 86.4 fL (80-94); Monocyte# 0.71 X10^3/uL; Monocyte% 6.2 % (0-10); NRBC Flagged by Analyzer 0 % (0-5); Platelet Count 269 K/mm3 (150-450); RBC Distribution Width CV 14.5 % (11.6-14.6); RBC Distribution Width SD 45.9 fl (35.1-43.9); Red Blood Count 5.75 M/mm3 (4.6-6.2); White Blood Count 11.5 K/mm3 (4.4-11.0)
[2020-01-22 13:32] LABS: ALB/GLOB Ratio 0.8 RATIO (0.9-2.4); AST(SGOT) 24 U/L (15-37); Alanine Aminotransfer ALT/SGPT 21 U/L (16-61); Albumin, Serum 3.4 g/dL (3.2-5.0); Alkaline Phosphatase 124 U/L (45-117); Anion Gap 7 (5-15); BUN 27 mg/dL (7-18); BUN/Creat Ratio 17.5 RATIO (10-20); Calcium,Total 9.1 mg/dL (8.5-10.1); Chloride 102 mmol/L (98-107); Creatinine, Serum 1.54 mg/dL (0.70-1.30); EST Glomerular Filtration Rate 46 mL/min (>60); Est Glom Filt Rate - Afr Amer 56 mL/min (>60); Glucose 99 mg/dL (74-106); Potassium 3.6 mmol/L (3.5-5.1); Protein, Total 7.4 g/dL (6.4-8.2); Sodium Level 140 mmol/L (136-145)
--- NOTE | 2020-01-22 14:30 | RAD_ITS ---
STUDY: X-RAY - CERVICAL SPINE REASON FOR EXAM: Male, 84 years old. FALL LAST NIGHT, NECK PAIN AND STIFFNESS TECHNIQUE: 3 view(s) of the cervical spine were obtained. COMPARISON: CT cervical spine December 26, 2019 FINDINGS: Normal anterior atlantoaxial articulation. There is a nondisplaced fracture to the base of the odontoid. Normal cervical lordosis. Normal vertebral bodies and endplates. There is multi-level degenerative disc disease with multilevel disc space narrowing. There is slight anterior subluxation at C3-4 and C4-5. The soft tissue structures are unremarkable. RAD/Cerv Spine 2 or 3 Views IMPRESSION: Nondisplaced type II odontoid fracture. Slight subluxation C3-4 and C4-5. Electronically Signed: Channing Olson MD at 22:18 EDT , Service support ,
== END ==
PROVIDERS: PCP Family Medicine Geriatric Medicine; Referring Provider Family Medicine Geriatric Medicine; Visit Provider Family Medicine Geriatric Medicine
DX: M54.2 Cervicalgia (principal); R55 Syncope and collapse
CPT/HCPCS: 36415; 72040; 80053; 85025

== ENCOUNTER 2020-02-04 16:00 | Outpatient (RCR) | payer MEDICARE, OTHER, SELFPAY ==
[2019-09-29 14:53] VITALS: BMI 23.3
--- NOTE | 2019-10-12 10:02 | HP.PTEVAL_ITS ---
Patient's Visit Information JULIAN JACOB is a 84 year old M referred to Physical Therapy by Damaris Colunga MD with a diagnosis of c2 feacture healed. Date of Evaluation: 10/12/19 Physical Therapist: Russel Garber DPT, OCS, CSCS - Visit Plan Frequency: 2-3x /Week Duration: 4-6 Weeks Plan: neurocom balance assessment and. 2-3x/week for 3 weeks for. weight shift, vest challenges and fucntional gait step length. - Subjective Findings: Trying to walk again. Balance is no good over the last couple months. Does not feel as steady. Has had some falls. No breaks. Fell last year in August turning and foot stayed in place. Usually falls because of foot sticks. Has 4 wh walker and uses it out and about. No AD used at home. Shuffles alot. No spinning. Has numbness in feet and not sure what it is from. Broke neck last year from a fall. It is healed. Was numb prior to that, not sure why. Lives with dtr adn grandson. Two story house and uses steps now and then with railing. Drives. Showers with lip alone. Dresses self adn cooks and cleans. Spends day doing not much. 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 Has some exercises at sink. H/o B TKA. Enjoys photography. - Objective Walks with short steps and hesitant to move feet. turns only 90 degrees bfore sitting in chair. Needs cga with oAD, VC help him take long steps with wh walker. Very tired after 200 foot walk CGA withotu AD and one flight steps. VOR walking is a challenge as he compensates by not mvoing head. Turns are slow and labored with short steps near shuffling. HS and quads mod tight. AROM LE WFL. Sensation shows slight deficits in feet to gross light touch. reflexes 1/3 patella and achilles. Strength LE 4-/5. coordination to reciprocal tapping toes and heels OK. Has some foot slap walking and coming down steps. - Balance Scores Functional Gait Assessment Score: 16 % Disability: 46.6700 - Goals Goal 1:: FGA to limit fall risk. Goal Time Frame: 4-6 Weeks Goal 2:: I appropr HEP to mtigiate future accidents. Goal Time Frame: 4-6 Weeks Goal 3:: Pt feel 50% better in overall balance. Goal Time Frame: 4-6 Weeks Goal 4:: Walk through dept. with 6 inch step length and no AD needed one lap without fatigue. Goal Time Frame: 4-6 Weeks - Rehabilitation Potential Physical Therapy Diagnosis: balacne deficits from nueropathy and fear. Rehabilitation Potential: Fair - Anticipated Interventions Patient/Client Instruction: Educate patient on: Condition, Plan of Care For the Purpose of:: To improve muscle performance and motor function, To increase tolerance to activity/condition/position, To improve ability of physical actions for home/community/work/leisure, To improve gait and locomotor functions Therapeutic Exercise to Include: Strength training, Balance training, Coordination, Postural training, Gait and locomotor training, Neuromotor development For the Purpose of:: To improve muscle performance and motor function, To increase tolerance to activity/condition/position, To improve ability of physical actions for home/community/work/leisure, To improve gait and locomotor functions Thank you for the opportunity to evaluate your patient. For Medicare and Medicare HMO plans, please review the plan of care and approve it. It will need to be FAXED BACK to us at [phone] for Medicare purposes. For Medicare only, by signing this I certify the plan of care. Please let me know if there are questions or concerns regarding this plan of ca re. Physician Signature: Date:
--- NOTE | 2019-10-19 15:40 | HP.PTCOM_ITS ---
PT Communication Note 10/19/[address] Damaris Colunga MD , Thank you for the referral of Adilson to [facility] for balance assessment. I have enclosed a copy of the results for your review. In summation, he scored low on the vestibular portion of the Sensory Organization test. He scored with some minor latency on the Motor control test similar to his results of two years ago. He scored low on forward weight shifting excursion. With these results in mind, I plan to see him 2x/week for 3-6 weeks for balance exercises to address the above deficits. If there are questions regarding his PT, please feel free to call me. Thank you. Sincerely, AHSAN QureshiT, OCS, CSCS Contact Information
--- NOTE | 2019-11-17 13:04 | HP.PTREVAL ---
Damaris Colunga MD, It has been my pleasure to treat JULIAN JACOB over the last 7 visits for c2 feacture healed. Please see the progress note below for an update on the physical therapy plan of care! Subjective: Feels like balance adn walking better. Feels safer at home and faster. Not using rollator at all outside of here. No falls. Still trouble picking up heavy things due to balance. Still not walking outside a lot. Doing SLS at home at counter Objective/Function: TUG 18 seconds today. FGA is same as day one. +12 on LEFS. Pt feeling better subjectively. very tired after workout today. Takes 3 inch steps to start without rollator but needs to rest after 10 feet. Used rollator with 3-6 inch steps but takes lots of focus. Improving but needs more therapy and to be more aggressive with HEP. New goals and fair prognosis Plan Plan: 2x/week for 4 weeks... Please give pics and progress counter exercises for LE strength and postural strength(TB) in the first week. Continue gait and progress balance HEP with pics. Work on walking speed adn step length. Goals Goal 1:: FGA to limit fall risk. Goal Time Frame: 4-6 Weeks Goal Progress: Not Progressing Goal 2:: I appropr HEP to mtigiate future accidents. Goal Time Frame: 4-6 Weeks Goal Progress: Progressing, approp. Goal 3:: Pt feel 50% better in overall balance. Goal Time Frame: 4-6 Weeks Goal Progress: Goal Met Goal 4:: Walk through dept. with 6 inch step length and no AD needed one lap without fatigue. Goal Time Frame: 4-6 Weeks Goal Progress: with rollator progressing Goal 5:: LEFS score of 56 Goal Time Frame: 4-6 Weeks Goal Progress: NEW GOAL Goal 6:: TUG < 14 seconds Goal Time Frame: 4-6 Weeks Goal Progress: NEW GOAL Anticipated Interventions Patient/Client Instruction: Educate patient on: Condition, Plan of Care For the Purpose of:: To improve muscle performance and motor function, To increase tolerance to activity/condition/position, To improve ability of physical actions for home/community/work/leisure, To improve gait and locomotor functions Therapeutic Exercise to Include: Strength training, Balance training, Coordination, Postural training, Gait and locomotor training, Neuromotor development For the Purpose of:: To improve muscle performance and motor function, To increase tolerance to activity/condition/position, To improve ability of physical actions for home/community/work/leisure, To improve gait and locomotor functions Please do not hesitate to contact me at [phone] by phone or if you have questions or concerns regarding this new plan of care! Sincerely, Russel Garber, DPT, OCS, CSCS
--- NOTE | 2019-12-14 16:20 | HP.PTREVAL ---
Damaris Colunga MD, It has been my pleasure to treat JULIAN JACOB over the last 14 visits for c2 feacture healed. Please see the progress note below for an update on the physical therapy plan of care! Subjective: Doing fine. Balance is feeling much better adn can walk across room without holding on. Not strong, but not weak. Can do the basics as far as getting up form chair or steps. Endurance. Alot better though. HEP doing balance standing up at counter. At this point, feels like he likes to continue to work on balance. Objective/Function: Walks with good steps length with wh walker and needs VC constantly to take 3 inch steps without AD and only does about 4 seps before reverting to no step length. Also takes very short steps with stressful passing of other people and turns. TUG today was 22 seconds with VC. Steps are safe with rail and shows decent strength but tends to not put whole foot on next step up and avoid FW weight shift. With metronome, walks much better at 90 spm with a decent step length of 2 inches with focus. OVERALL IMPROVED STRENGTH AND BALANCE BUT FW WEIGHT SHIFT AND GAIT MONICA AND SAFETY WITHOUT WH WALKER STILL NEEDS WORK. Plan Plan: 2X/WEEK FOR 4 WEEKS TO WORK SPECIFICALLY ON MONICA WITH LONG STEP LENGTHS, FORWARD WEIGHT SHIFT(MAY PUT ON BALANCE MACHINE) AND ENDURANCE WITH AMBULATING LONGER TIMES AND MORE STEPS FOCUSSING ON FULL FOOT ON EACH STEP. gOALS APPROPRIATE WITH NEW poc AND OPTIONS. fAIR PROGNOSIS. Goals Goal 1:: FGA to limit fall risk. Goal Time Frame: 4-6 Weeks Goal Progress: SLOW PROGRESS., APPROP Goal 2:: I appropr HEP to mtigiate future accidents. Goal Time Frame: 4-6 Weeks Goal Progress: Goal Met Goal 3:: Pt feel 50% better in overall balance. Goal Time Frame: 4-6 Weeks Goal Progress: SLOW PROGRESS, APPROP. Goal 4:: Walk through dept. with 6 inch step length and no AD needed one lap without fatigue. Goal Time Frame: 4-6 Weeks Goal Progress: with rollator progressing Goal 5:: LEFS score of 56 Goal Time Frame: 4-6 Weeks Goal Progress: Emergency Medicine Specialist, CHANGE poc Goal 6:: TUG < 14 seconds Goal Time Frame: 4-6 Weeks Goal Progress: automobile tester, CHANGE poc ABOVE, Anticipated Interventions Patient/Client Instruction: Educate patient on: Condition, Plan of Care For the Purpose of:: To improve muscle performance and motor function, To increase tolerance to activity/condition/position, To improve ability of physical actions for home/community/work/leisure, To improve gait and locomotor functions Therapeutic Exercise to Include: Strength training, Balance training, Coordination, Postural training, Gait and locomotor training, Neuromotor development For the Purpose of:: To improve muscle performance and motor function, To increase tolerance to activity/condition/position, To improve ability of physical actions for home/community/work/leisure, To improve gait and locomotor functions Please do not hesitate to contact me at [phone] by phone or if you have questions or concerns regarding this new plan of care! Sincerely, Russel Garber, DPT, OCS, CSCS
--- NOTE | 2020-01-12 12:42 | HP.PTREVAL ---
Dr. Damaris Colunga MD, It has been my pleasure to treat JULIAN JACOB over the last 20 visits for c2 feacture healed. Please see the progress note below for an update on the physical therapy plan of care! Subjective: Feels like he is getting around more without balance aid. Walks at home without AD. No falls lately. Had one fall a while back where he was paying in gas station and did not see a one inch step. It was well marked and was his own fault. No injury. Getting in and out of car is no problem. Doing a few exercises at home. Feels like he can. Wants to walk better still. Objective/Function: Walking with wh walker today with one inch heel passing toe. Without AD starts with 3 inch step length and digresses within 5 steps to less than one inch on L. Tends to look down. Exits chair without UE when asked. Fatigues very easily. Still pulls fw weight shift on steps instead of shifting weight. TUG is 4 seconds better and FGA is one point better. Pt feels better subjectively. Gait is not hugely [id number] if any as step lengths are only slightly better and still looks down alot and fatigues quickly.. PROGRESS IS SLOW IF ANY. Appropriate with new POC on balance machine and old goals and new goals appropriate with fair prognosis. Plan Plan: will contact doctor for balance assessment script to addtress fW weight shift and any other dieficits on balance machine. 2x/week for 4 weeks after assessment for FW weight shift. Pt to do HEP fro strength adn gait and sylvia sk questions as he goes to help improve HEP. Goals Goal 1:: FGA to limit fall risk. Goal Time Frame: 4-6 Weeks Goal Progress: SLOW PROGRESS., APPROP Goal 2:: I with HEP x 4 weeks, balance assessment done adn FW weight shifts on steps consistently. Goal Time Frame: 2-4 Weeks Goal Progress: NEW GOAL Goal 3:: Pt feel 50% better in overall balance. Goal Time Frame: 4-6 Weeks Goal Progress: Goal Met Goal 4:: Walk through dept. with 6 inch step length and no AD needed one lap without fatigue. Goal Time Frame: 4-6 Weeks Goal Progress: Not Progressing Goal 5:: LEFS score of 56 Goal Time Frame: 4-6 Weeks Goal Progress: Not Progressing Goal 6:: TUG < 14 seconds Goal Time Frame: 4-6 Weeks Goal Progress: Progressing, 18 today Anticipated Interventions Patient/Client Instruction: Educate patient on: Condition, Plan of Care For the Purpose of:: To improve muscle performance and motor function, To increase tolerance to activity/condition/position, To improve ability of physical actions for home/community/work/leisure, To improve gait and locomotor functions Therapeutic Exercise to Include: Strength training, Balance training, Coordination, Postural training, Gait and locomotor training, Neuromotor development For the Purpose of:: To improve muscle performance and motor function, To increase tolerance to activity/condition/position, To improve ability of physical actions for home/community/work/leisure, To improve gait and locomotor functions Please do not hesitate to contact me at [phone] by phone or if you have questions or concerns regarding this new plan of care! Sincerely, Russel Garber, DPT, OCS, CSCS
--- NOTE | 2020-01-14 16:20 | HP.PTCOM ---
PT Communication Note 01/14/[address] Damaris Colunga MD , Thank you for the referral of Adilson for Computerized Dynamic Posturography at [facility]. i have enclosed a copy of the results for your review. In summation, it showed a poor score on the vestibular portion of the sensory Organization test. Also, Adilson had difficulty on various as pects of the weight shift on the Limits of Stability test. Based on this information, I plan to see him 2x/week for 4 weeks to work on weight hsifts, vestibular balance and functional balance with biofeedback on the Neurocom unit. This will supplement is HEP for strengthening of the legs. Please do not hesitate to contact me if there are questions regarding his PT. Thank you once again. Sincerely, Russel Garber DPT, OCS, CSCS Contact Information
== END 2020-02-04 19:00 | disposition home or self-care (01) ==
LOC: PT 16:00
PROVIDERS: PCP Family Medicine Geriatric Medicine; Referring Provider Orthopaedic Surgery; Visit Provider Orthopaedic Surgery
DX: T14.90XD Injury, unspecified, subsequent encounter (principal); W19.XXXD Unspecified fall, subsequent encounter; R26.9 Unspecified abnormalities of gait and mobility
CPT/HCPCS: 92548; 97110; 97116; 97162; 97164; 97530; 97750

== ENCOUNTER → 2020-02-26 11:29 | Outpatient (CLI) | payer MEDICARE, OTHER, SELFPAY ==
[2020-02-17 09:19] VITALS: BMI 23.7
--- NOTE | 2020-02-26 12:35 | RAD_ITS ---
STUDY: X-RAY - ABDOMEN/PELVIS REASON FOR EXAM: Male, 84 years old. Diarrhea. Dehydration for 2 years. Hypertensive. TECHNIQUE: AP supine and upright views of the abdomen and pelvis. COMPARISON: None. FINDINGS: Normal visualized lung bases. The heart is mildly enlarged with evidence of cardiac pacemaker. There is a nonspecific bowel gas pattern. Air is seen throughout the colon as well as in scattered nondistended small bowel loops. No evidence of obstruction. There are no air-fluid levels. There is no demonstrated free abdominal air. The visualized liver, spleen and kidneys are grossly normal in size and morphology. Normal soft tissue structures. There are diffuse degenerative changes of the visualized lumbar spine. RAD/Abd Inc Decub and/or Erect IMPRESSION: No evidence of acute intra-abdominal process. Electronically Signed: Alessandro Maldonado DO at 8:13 EDT Tel [phone], Service support ,
[2020-02-26 12:55] LABS: Anion Gap 8 (5-15); BUN 17 mg/dL (7-18); BUN/Creat Ratio 13.3 RATIO (10-20); Calcium,Total 7.8 mg/dL (8.5-10.1); Chloride 106 mmol/L (98-107); Creatinine, Serum 1.28 mg/dL (0.70-1.30); EST Glomerular Filtration Rate 57 mL/min (>60); Est Glom Filt Rate - Afr Amer 69 mL/min (>60); Glucose 103 mg/dL (74-106); Potassium 3.7 mmol/L (3.5-5.1); Sodium Level 138 mmol/L (136-145)
[2020-02-26 13:02] LABS: Absolute Lymphocyte Count 0.98 X10^3/uL (0.83-4.51); Absolute Neutrophil Count 5.6 X10^3/uL (2.0-7.7); Basophil# 0.06 X10^3/uL; Basophil% 0.8 % (0-1); Eosinophil# 0.16 X10^3/uL; Eosinophils% 2.1 % (0-5); Hematocrit 44.1 % (40-54); Hemoglobin 14.3 g/dL (13.0-16.5); Lymphocyte # 0.98 X10^3/ul (4.0); Lymphocyte % 12.7 % (19-41); Mean Corp Hgb Conc 32.4 g/dL (32-36); Mean Corpuscular Hgb 28.7 pg (27.0-32.0); Mean Corpuscular Volume 88.6 fL (80-94); Mean Platelet Vol. 10.9 fl (6.2-12.0); Monocyte# 0.85 X10^3/uL; NRBC Flagged by Analyzer 0 % (0-5); Neutrophil # 5.61 X10^3/uL (2.7-7.7); Neutrophil % 72.8 % (47-70); Platelet Count 206 K/mm3 (150-450); RBC Distribution Width CV 15.3 % (11.6-14.6); RBC Distribution Width SD 49.7 fl (35.1-43.9); Red Blood Count 4.98 M/mm3 (4.6-6.2); White Blood Count 7.7 K/mm3 (4.4-11.0)
== END ==
PROVIDERS: PCP Family Medicine Geriatric Medicine; Referring Provider Family Medicine Geriatric Medicine; Visit Provider Family Medicine Geriatric Medicine
DX: R19.7 Diarrhea, unspecified (principal)
CPT/HCPCS: 36415; 74019; 80048; 85025

== ENCOUNTER 2020-02-26 20:46 | Inpatient (IN) | payer MEDICARE, OTHER, SELFPAY ==
[2020-02-17 09:19] VITALS: BMI 23.7
[2020-02-26] VITALS (7 sets, daily range): BP systolic 126–150; BP diastolic 83–120; PULSE 87–141; RESP 14–24; TEMP 37.2–37.6; O2SAT 94–98; BMI 24.5
--- NOTE | 2020-02-26 20:49 | CT_ITS ---
STUDY: CT BRAIN WITHOUT CONTRAST REASON FOR EXAM: Male, 84 years old. Lt hemipariesis. Prior craniotomy for brain bleed after fall RADIATION DOSAGE (If Supplied By Facility): CTDIvol = ( 44.99 ) mGy, DLP = ( 880.47 ) mGycm TECHNIQUE: Transaxial CT imaging of the brain was performed without administration of intravenous contrast material. Individualized dose optimization techniques were used for this CT. COMPARISON: Head CT exam of December 26, 2019 FINDINGS: Normal soft tissue structures. Status post a right craniotomy unchanged from prior exam. There is mild cerebral atrophy with widening of the extra-axial spaces and ventricular dilatation. There are areas of decreased attenuation within the white matter tracts of the supratentorial brain, consistent with microvascular disease changes. Normal basal ganglia and thalami. Normal brainstem. There is mild cerebellar atrophy. There is no intracranial hemorrhage. There are no findings of an acute ischemic infarction. Normal paranasal sinuses. CT/Brain/Head without Contrast IMPRESSION: No acute intracranial findings or changes. Negative for hemorrhage, hematoma or demarcation of a new nonhemorrhagic infarct zone. Stable involutional changes. Status post prior right craniotomy. N.B. : The above information has been verbally conveyed by Shira King MD to Claude Lorenzana on 02/26/2020 21:02:35 (ET). Electronically Signed: Shira King MD at 21:04 EDT , Service support ,
--- NOTE | 2020-02-26 20:49 | EKG12_ITS ---
Test Reason : STROKE Blood Pressure : / mmHG Vent. Rate : 139 BPM Atrial Rate : 133 BPM P-R Int : 000 ms QRS Dur : 090 ms QT Int : 330 ms P-R-T Axes : 000 040 156 degrees QTc Int : 502 ms Atrial fibrillation with rapid ventricular response Nonspecific ST and T wave abnormality Abnormal ECG Confirmed by BERONICA ALVARADO, MAXWELL ([id number]), graphics editor CATHERINE MATA ([id number]) on 02/29/2020 1:02:44 PM Referred By: BB/BENTLEY Confirmed By:MAXWELL LOCO MD
--- NOTE | 2020-02-26 20:50 | ED.DCSUM_ITS ---
History of Present Illness Chief Complaint: Neuro S/Sx Informant: Patient, Orthopedically Impaired Teacher Onset: Hours - 2-3 Context: Sudden Onset Timing: Continuous Quality and Location: Left Arm Weakness, Left Leg Weakness Current Severity: Mild Maximum Severity: Severe Worsened by: nothing Relieved by: nothing in particular Associated Symptoms: Negative for: Headache, Nausea, Vomiting, Chest Pain Narrative: Initial history from EMS said last known well at 1630, severe left-sided weak ness upon their initial evaluation, no known injury, patient on warfarin for chronic atrial fibrillation. They also noted that he has a fever of 101 now. He apparently was at his PCP getting tests earlier today. After initial brief exam, patient went directly to CT, after he returned and I finished examining him, daughter arrived and was able to provide more history. She states at the time of onset was 1615, he went to get out of the chair and suddenly was weak on the left side and having trouble. He was able to speak. 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 Patient denies headache, chest pain, trouble breathing, extremity pain, neck pain. Denies any vision changes. They both deny any recent bleeding, the last time he had bleeding was a spontaneous nosebleed in September which was 5 months ago. Daughter states that he has been feeling relatively poorly for about the last week with a poor appetite so he went to his PCP today and had some tests and IV fluids in the office. - Past Medical History (1) Atherosclerotic heart disease of [place] coronary artery without angina pectoris Status: Chronic Comment: [id number] LAD 09/21/2004 (2) Cardiomyopathy, dilated, nonischemic Status: Chronic (3) Essential (primary) hypertension Status: Chronic (4) Hyperlipidemia Status: Chronic (5) longterm current use of anticoagulant Status: Chronic (6) Longstanding persistent atrial fibrillation Status: Chronic (7) Presence of permanent cardiac pacemaker Status: Chronic Comment: Permanent Pacemaker insertion, single chamber 10/17/15, [place] [employer] (8) History of coronary artery stent placement Status: Resolved Comment: [id number] LAD 09/21/2004 Past Medical History - Allergies and Home Meds Allergies/Adverse Reactions: Allergies hydrochlorothiazide Adverse Reaction (Intermediate, Verified 02/26/20 21:30) syncope Primary Care Physician: Dariusz Gonzalez Chi, MD [Primary Care Provider] - Surgical History: cataract, herniorrhaphy, pacemaker implantation, total knee arthroplasty, - - Neurosurgery for traumatic intracranial bleed 10 years ago or more Lives: With Family, - - According to daughter, DNR-Comfort Care arrest Smoking Status: Unknown if ever smoked - Family History Maternal Family History: Family History (Last Reviewed 01/22/20 @ 14:57 by JESSEE Mckee) Father CAD (coronary artery disease) Myocardial infarction Sudden cardiac Mother No problems noted. Uncle CAD (coronary artery disease) Sudden cardiac Myocardial infarction Other Heart disease Family History: Reports: No pertinent history Paternal Family History: Family History (Last Reviewed 01/22/20 @ 14:57 by JESSEE Mckee) Father CAD (coronary artery disease) Myocardial infarction Sudden cardiac Mother No problems noted. Uncle CAD (coronary artery disease) Sudden cardiac Myocardial infarction Other Heart disease Family History: Reports: - - father had mi at age 69 Review of Systems General: Reports: Fever, Malaise. Denies: Chills, Sweats Eyes: Denies: Visual changes - bilaterally, Diplopia ENT: Denies: Bilateral ear pain, Rhinorrhea, Sore throat Cardiovascular: Denies: Chest pain, Palpitations Respiratory: Denies: Dyspnea, Cough, Dyspnea on exertion Gastrointestinal: Denies: Abdominal pain, Nausea, Vomiting, Diarrhea, Melena, Hematochezia Genitourinary: Denies: Dysuria, Hematuria, Frequency Musculoskeletal: Denies: Neck pain, Back pain, Extremity Pain Skin: Reports: Rash. Denies: Wounds Neurological: Reports: Weakness. Denies: Headache, Numbness STROKE Inital Vital Signs reviewed: Yes - NIHSS Initial 1a Level of Consciousness: 0 1b LOC Questions (Score 2 if aphasic/stupor): 1 - incorrect month (October) 1c LOC Commands (Only score 1st attempt): 0 2 Best Gaze (If aphasic, use reflexive mvmts.): 0 3 Visual: 0 4 Facial Palsy: 0 5 Motor Arm Right (UN = amputation/fusion): 0 5 Motor Arm Left: 1 6 Motor Leg Right: 0 6 Motor Leg Left: 2 7 Limb ataxia (Only + if out of proportion): 0 8 Sensory (Aphasia/stupor=0 or 1, coma=2): 0 9 Best Language: 0 10 Dysarthria (mute, coma=2, intubated=UN): 0 11 Extinction and Inattention (only scored if +): 0 Total Score: 4 General: Well nourished, Well developed, - - NAD. keenly alert. Head: Normocephalic, Atraumatic Eyes: Perrl, EOMI ENT: Moist mucous membranes, No rhinorrhea Neck: Supple, Nontender Cardiovascular: Regular rate, Regular rhythm, No murmurs Respiratory: No distress, CTA bilaterally, Chest nontender Abdomen: Soft, Nontender, Nondistended, Normal bowel sounds Back: Nontender, Normal Inspection Extremities: Nontender, Edema Skin: Normal color, No Trauma, Rash - excoriated skin w/ flaking/sloughing epidermis distal LLE, ? chronic stasis Neurological: Alert, Disoriented - at baseline per daughter Psychological: Normal affect, Normal Mood Diagnostic/Tx/Re-eval Impressions Brain CT 02/26/20 20:49 IMPRESSION: No acute intracranial findings or changes. Negative for hemorrhage, hematoma or demarcation of a new nonhemorrhagic infarct zone. Stable involutional changes. Status post prior right craniotomy. N.B. : The above information has been verbally conveyed by Shira King MD to Claude Lorenzana on 02/26/2020 21:02:35 (ET). Electronically Signed: Shira King MD at 21:04 EDT , Service support , ADDENDUM: 02/26/202110 IMPRESSION: No acute intracranial findings or changes. Negative for hemorrhage, hematoma or demarcation of a new nonhemorrhagic infarct zone. Stable involutional changes. Status post prior right craniotomy. N.B. : The above information has been verbally conveyed by Shira King MD to Claude Lorenzana on 02/26/2020 21:02:35 (ET). Electronically Signed: Shira King MD at 21:04 EDT , Service support , Chest X-Ray 02/26/20 21:38 IMPRESSION: Iliac pacemaker without acute cardiopulmonary disease or interval change. Electronically Signed: Alessandro Maldonado at 22:13 EDT Tel [phone], Service support , 02/26/20 20:49 Brain/Head without Contrast [CT] Stat 02/26/20 21:23 CTA Head AND Neck W/ Contrast [CT] Stat 02/26/20 21:38 Chest 1 View [RAD] Stat Laboratory Results 02/26/20 02/26/20 02/26/20 20:56 20:56 20:56 WBC 13.8 H RBC 4.82 Hgb 14.4 Hct 42.1 MCV 87.3 MCH 29.9 MCHC 34.2 D RDW Std Deviation 49.1 H RDW Coeff of Carolyn 15.5 H Plt Count 180 MPV 9.8 Immature Gran % (Auto) 0.400 Neut % (Auto) 87.3 H Lymph % (Auto) 3.[address] [place] % (Auto) 7.3 Eos % (Auto) 0.9 Baso % (Auto) 0.3 Absolute Neuts (auto) 12.1 H Absolute Lymphs (auto) 0.53 L Nucleated RBC % 0 Differential Comment SCANNED PT 16.1 H INR 1.4 APTT 29.6 Sodium 139 Potassium 3.2 L Chloride 108 H Carbon Dioxide 23.0 Anion Gap 8 BUN 17 Creatinine 1.24 Est GFR (MDRD) Af Amer 72 Est GFR (MDRD) Non-Af 59 L BUN/Creatinine Ratio 13.7 Glucose 108 H Lactic Acid Calcium 7.8 L Troponin I < 0.015 Urine Color Urine Clarity Urine pH Ur Specific [place] Urine Protein Urine Glucose (UA) Urine Ketones Urine Occult Blood Urine Nitrite Urine Bilirubin Urine Urobilinogen Ur Leukocyte Esterase Urine RBC Urine WBC Ur Squamous Epith Cells Urine Bacteria Urine Mucus 02/26/20 02/26/20 21:45 22:00 WBC RBC Hgb Hct MCV MCH MCHC RDW Std Deviation RDW Coeff of Carolyn Plt Count MPV Immature Gran % (Auto) Neut % (Auto) Lymph % (Auto) [place] % (Auto) Eos % (Auto) Baso % (Auto) Absolute Neuts (auto) Absolute Lymphs (auto) Nucleated RBC % Differential Comment PT INR APTT Sodium Potassium Chloride Carbon Dioxide Anion Gap BUN Creatinine Est GFR (MDRD) Af Amer Est GFR (MDRD) Non-Af BUN/Creatinine Ratio Glucose Lactic Acid 1.0 Calcium Troponin I Urine Color Yellow Urine Clarity Sl. Cloudy Urine pH 5.0 Ur Specific [place] 1.010 Urine Protein 15 H Urine Glucose (UA) Normal Urine Ketones 5 H Urine Occult Blood 25 H Urine Nitrite Negative Urine Bilirubin Negative Urine Urobilinogen 1 H Ur Leukocyte Esterase Negative Urine RBC 0-5 SEEN Urine WBC 0 SEEN Ur Squamous Epith Cells 0-5 SEEN Urine Bacteria 0 SEEN Urine Mucus 0 SEEN - Rhythm Strip Rhythm Strip: A-fib Rate: 130 Ectopy: None - EKG Initial EKG Interpretation: No Acute Injury Pattern, Atrial Fibrillation, Non-Specific ST Changes - Medical Decision Making Stroke Team Activated: Yes - Prehospital Reviewed Inclusion/Exclusion criteria: Yes - None, INR 1.4 Was Patient considered for Endovascular Intervention?: No - Negative CTA IV Alteplase (t-PA) Administered: No - Resolved with NIHSS 0 per neurology Initially, patient was directly to CT. I did a brief NIH prior to that, he did not have hemineglect or other cortical signs, so a plain CT only was obtained. It showed no hemorrhage. On reevaluation, his total NIHSS is as above, 4. There was a delay on having neurology evaluate, they initially called me, it was before I completed the NIHSS, I asked them to be men and they did, short time later and evaluated the patient. According to the neurologist, the NIHSS is 0, and for that reason he does not recommend TPA. He recommended CT angiography, and transfer if the patient has an LVO, which he does not. Since he had a fever, I obtained a chest x-ray, urinalysis, those are unremarkable, and sent the COVID swab that is pending. He does not have any specific risk for roly COVID-19. He is in atrial fibrillation with RVR but his rate is around 110 with IV fluids, so I chose not to treat that since there are still unknowns with regards to if he has an infection, is septic, etc. Plan is for admission and further evaluation/work-up. Blood cultures were sent. Critical care time (excluding procedures): 30-74 minutes - 40 minutes, including time spent discussing with patient, family, consultants, arranging admission, and performing direct patient care and reevaluation to the bedside ED Disposition - Plan for ED Patient: Disposition: Acute Care [facility] Diagnosis: TIA (transient ischemic attack), Subtherapeutic international normalized ratio (INR), Atrial fibrillation with RVR, Fever, Hypokalemia Referrals: Draiusz Gonzalez Chi, MD [Primary Care Provider] -
[2020-02-26 21:03] LABS: Absolute Lymphocyte Count 0.53 X10^3/uL (0.83-4.51); Absolute Neutrophil Count 12.1 X10^3/uL (2.0-7.7); Basophil# 0.04 X10^3/uL; Basophil% 0.3 % (0-1); Eosinophil# 0.12 X10^3/uL; Eosinophils% 0.9 % (0-5); Hematocrit 42.1 % (40-54); Hemoglobin 14.4 g/dL (13.0-16.5); Lymphocyte # 0.53 X10^3/ul (4.0); Lymphocyte % 3.8 % (19-41); Mean Corp Hgb Conc 34.2 g/dL (32-36); Mean Corpuscular Hgb 29.9 pg (27.0-32.0); Mean Corpuscular Volume 87.3 fL (80-94); Mean Platelet Vol. 9.8 fl (6.2-12.0); Monocyte# 1.01 X10^3/uL; Monocyte% 7.3 % (0-10); NRBC Flagged by Analyzer 0 % (0-5); Neutrophil # 12.09 X10^3/uL (2.7-7.7); Neutrophil % 87.3 % (47-70); POSITIVE DIFFERENTIAL YES; Platelet Count 180 K/mm3 (150-450); RBC Distribution Width CV 15.5 % (11.6-14.6); RBC Distribution Width SD 49.1 fl (35.1-43.9); Red Blood Count 4.82 M/mm3 (4.6-6.2); White Blood Count 13.8 K/mm3 (4.4-11.0)
[2020-02-26 21:15] LABS: International Normalized Ratio 1.4; Prothrombin Time (Protime)PT. 16.1 SECONDS (11.7-14.9)
[2020-02-26 21:16] LABS: Partial Thromboplast Time 29.6 Seconds (24.1-36.2)
[2020-02-26 21:18] LABS: Differential Indicated SCAN CRITERIA MET
[2020-02-26 21:22] LABS: Anion Gap 8 (5-15); BUN 17 mg/dL (7-18); BUN/Creat Ratio 13.7 RATIO (10-20); Calcium,Total 7.8 mg/dL (8.5-10.1); Chloride 108 mmol/L (98-107); Creatinine, Serum 1.24 mg/dL (0.70-1.30); EST Glomerular Filtration Rate 59 mL/min (>60); Est Glom Filt Rate - Afr Amer 72 mL/min (>60); Glucose 108 mg/dL (74-106); Potassium 3.2 mmol/L (3.5-5.1); Sodium Level 139 mmol/L (136-145)
--- NOTE | 2020-02-26 21:23 | CT_ITS ---
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 hX OF HEART STENTS, PACEMAKER, SUBDURAL HEMATOMA WITH CRANIOTOMY D/T/FALL 10YR AGO TECHNIQUE: Routine carotid CT angiogram protocol was performed without and with IV contrast. In addition, images were obtained of the [place]. [place] criteria using the distal ICAs for comparison were used for evaluation of stenoses. 3D reconstructions were reviewed. A radiation dose optimization technique was used for this scan. IV Contrast dosage and agent: Isovue 370 100ml COMPARISON: The most recent CT scan of the brain was performed less than one hour earlier. Carotid duplex ultrasound was performed on March 12, 2018. The report from that ultrasound is not available. For my review of the velocities in the table at the end of that study I perceived no significant stenosis was demonstrated at that time. X-rays of the cervical spine are available from January 22, 2020. FINDINGS: Left chest wall cardiac pacer device with a single lead extending into the left subclavian vein --NECK: AORTIC ARCH AND BRANCHES: Elongation of the thoracic aorta with some atherosclerotic plaque. Trace calcific plaque at the origin of both left and right subclavian arteries as well. Trace calcific plaque at the origin of both vertebral arteries without significant stenosis RIGHT CCA: Calcific plaque begins within the very distal aspect of the right CCA with some soft plaque. Most of this plaque is continuous with plaque within the ICA and ECA. The contribute to less than 20% stenosis RIGHT ICA: Soft and calcific plaque at the carotid bulb with less than 20% stenosis LEFT CCA: Disease is similar within the left CCA as the right CCA. Soft and calcific plaque begins within the distal CCA extending into the ICA and ECA within the carotid bulb. The plaque extends for a greater distance along the length of the left ICA, but still with less than 20% stenosis LEFT ICA: Calcific and soft plaque within the left carotid bulb with less than 20% stenosis RIGHT VERTEBRAL ARTERY: No occlusion, significant stenosis or dissection. LEFT VERTEBRAL ARTERY: No occlusion, significant stenosis or dissection. NECK SOFT TISSUES: Unremarkable. LUNG APICES: Clear. BONES: No thin slab sagittal or coronal 2-D reformats are available which are more optimal for imaging of the bones. An odontoid fracture is present. This was present on the previous x-ray of the cervical spine. [place] anterior, angulation of the odontoid posteriorly was present on the previous study and remains. There is no significant posterior subluxation of the odontoid. Poor dentition within the maxilla and the mandible --HEAD: Large right old craniotomy with metallic fixation. The craniotomy is not healed. Evidence for previous bilateral orbit surgery. Anteriorly, adjacent to the left frontal lobe, there is a dural based enhancing nodule. It measures 8 mm and has a dural tail. It is homogeneously enhancing. It is hyperdense relative to the adjacent brain parenchyma. When compared to the CT scan of the brain performed less than one hour earlier this area is not clearly identified and is likely a cyst though dense tissue cortex. This likely represents a benign meningioma --Anterior circulation: ICAs: No significant stenosis at the intracranial/visualized segments. ACAs: No significant stenosis at the visualized segments. ACOM: Present. MCAs: No significant stenosis at the visualized segments. --Posterior circulation: PCOMs: A left posterior communicating artery is present. 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 BASILAR ARTERY: No significant stenosis. VERTEBRAL ARTERIES: No significant stenosis at the intradural/visualized segments. No evidence of intracranial aneurysm or vascular malformation. CT/CTA Head AND Neck W/ Contrast IMPRESSION: Bilateral distal common carotid artery calcific and soft plaque extending into the carotid bulb and the bilateral ECAs. This disease causes less than 20% stenosis. The vessels remain widely patent into the brain. Within the brain there is no aneurysm, stenosis, occlusion, or dissection. The patient has had a previous right craniotomy. Adjacent to the left frontal lobe there is an 8 mm dural based enhancing nodule consistent with a benign meningioma. Individualized dose optimization techniques were used for this CT. at 2248 Reported and signed by: Uriah Castro MD Electronically Signed: Uriah Castro MD at 22:47 EDT Tel , Service support ,
--- NOTE | 2020-02-26 21:28 | CM.ED ---
Social Work Responding to Stroke Alert. Support provided to daughter. Patient currently lives with daughter and grandson. Patient daughter reports to assist patient with transportation and meals. Patient PCP is Dr. Gonzalez. Patient has no aides in the home and primarily is independent. Norah PINEDA, PETRA
--- NOTE | 2020-02-26 21:38 | RAD_ITS ---
STUDY: X-RAY CHEST REASON FOR EXAM: Male, 84 years old. Onset of stroke like symptoms at 1630 hours. TECHNIQUE: Single AP portable view of the chest. COMPARISON: September 27, 2019. FINDINGS: The lungs are clear and expanded. There is no demonstrated pleural abnormality. Normal size heart. Labeled cardiac pacemaker. Normal mediastinum and tapan. Normal visualized pulmonary arteries. Normal visualized aortic arch and descending thoracic aorta. The thoracic spine is obscured by the mediastinum. Normal visualized ribs, clavicles, and shoulders. There is no demonstrated abnormality of the visualized soft tissue structures of the upper abdomen. RAD/Chest 1 View IMPRESSION: Iliac pacemaker without acute cardiopulmonary disease or interval change. Electronically Signed: Alessandro Maldonado DO at 22:13 EDT Tel [phone], Service support ,
[2020-02-26 21:39] LABS: Differential Comment SCANNED
[2020-02-26] MEDS: 0.9% Normal Saline 1,000 ML 100 ML IV (22:01)
[2020-02-26 22:11] LABS: Bacteria 0 SEEN /hpf (None Seen); Mucous, Urine 0 SEEN /hpf (<or=2+); White Blood Cells 0 SEEN /hpf (0-5)
[2020-02-26 22:23] LABS: Color, Urine Yellow (Yellow); Glucose, Dipstick Normal (Normal); Ketone-Dipstick 5 mg/dl (Negative); Leukocyte Esterase-Dipstick Negative /ul (Negative); Nitrite-Dipstick Negative (Negative); Occult Blood-Urine 25 /ul (Negative); Protein-Dipstick 15 mg/dl (Negative); Urine Bilirubin Dipstick Negative (Negative); Urine Clarity Sl. Cloudy (Clear); Urine Urobilinogen 1 mg/dl (Normal)
[2020-02-26] MEDS: Potassium Chloride 10mEq/100mL 10 MEQ/100 ML IV.SOLN. 100 MEQ IV BOLUS (22:30)
[2020-02-26 22:39] LABS: Red Blood Cells-Urine 0-5 SEEN /hpf (0-5); Squamous Epithelial Cells - UA 0-5 SEEN /hpf (0-5)
--- NOTE | 2020-02-26 22:49 | ED.RN ---
[facility] discontinued per dr [place] [phone]
--- NOTE | 2020-02-26 22:50 | HP.PCM_ITS ---
Problem List (1) TIA (transient ischemic attack) Status: Acute (2) Subtherapeutic international normalized ratio (INR) Status: Acute (3) Atrial fibrillation with RVR Status: Acute (4) Fever Status: Acute Qualifiers: Fever type: unspecified Qualified Code(s): R50.9 - Fever, unspecified (5) Hypokalemia Status: Acute (6) Fatigue Status: Acute Qualifiers: Fatigue type: unspecified Qualified Code(s): R53.83 - Other fatigue (7) History of coronary artery stent placement Status: Resolved Comment: BLK-THT-[id number] LAD 09/21/2004 (8) Longstanding persistent atrial fibrillation Status: Chronic (9) Presence of permanent cardiac pacemaker Status: Chronic Comment: Permanent Pacemaker insertion, single chamber 10/17/15, [employer] (10) Essential (primary) hypertension Status: Chronic History of Present Illness Date of Admission: 02/26/20 Chief Complaint: Diarrhea - 3 days. Altered mental status - 1 day The patient is a 84 year old M with multiple comorbidities of account for CAD status post stents, status post pacemaker, hypertension, history of 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 status post craniotomy, history of recurrent falls who comes in with complaints of altered mental status. Patient lives with his son and daughter. He has been having diarrhea in the last 3 days. He was in to see his primary care doctor, Dr. Gonzalez today. He received IV fluids in the outpatient, had abdominal KUB ordered and sent home. At home, his family said he was very weak, and appeared confused. Around dinnertime, patient was not answering questions correctly and was not acting right. The EMS were called and felt that the patient had a positive left-sided facial droop, left arm droop and left leg weakness. His initial NIHSS score was 4, patient did have some left leg and arm drift. Stroke alert was called. Vitals in the ED showed temperature of 99.6F, heart rate 87, blood pressure 128/100, respiratory rate 16, SPO2 98% on room air. His WBC count was 13.8, hemoglobin 14.4, platelet count 180, INR 1.4, sodium 139, potassium 3.8, chloride 108, bicarbonate 23, BUN 17, creatinine 1.24 which is his baseline. UA was slightly cloudy, nitrite negative, leukocyte esterase negative WBC 0. CT of the head showed no acute intracranial findings. CT of the head and neck showed minimal stenosis, benign meningioma of the left frontal lobe. [facility] was consulted commended MRI of the head, 2D echo. Past Medical History Past Medical History (Chronic Problems): Chronic Problems (Last Reviewed 01/22/20 @ 14:57 by JESSEE Mckee) Cardiomyopathy, dilated, nonischemic (Chronic) Atherosclerotic heart disease of [place] coronary artery without angina pectoris (Chronic) [id number] LAD 09/21/2004 Longstanding persistent atrial fibrillation (Chronic) 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) Permanent Pacemaker insertion, single chamber 10/17/15, [employer] Essential (primary) hypertension (Chronic) Hyperlipidemia (Chronic) Bundle branch block, right (Chronic) 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) Medical History: Medical History (Last Reviewed 01/22/20 @ 14:57 by JESSEE Mckee) Cardiomyopathy, dilated, nonischemic (Chronic) I42.0 Atherosclerotic heart disease of [place] coronary artery without angina pectoris (Chronic) I25.10 [id number]-[id number] LAD 09/21/2004 Longstanding persistent atrial fibrillation (Chronic) I48.11 Essential (primary) hypertension (Chronic) I10 Hyperlipidemia (Chronic) E78.5 Bundle branch block, right (Chronic) I45.10 Carotid bruit R09.89 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 Glaucoma H40.9 History of 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 Onset Date: 09/13/08 Z86.79 09/13/2008 Hypothyroidism E03.9 Osteoarthritis M19.90 Premature ventricular contractions I49.3 History of syncope Z87.898 Lower GI bleed K92.2 Left bundle branch block (Ruled-out) I44.7 Supraventricular tachycardia (Ruled-out) I47.1 Edema R60.9 Memory loss R41.3 Shortness of breath R06.02 Syncope and collapse R55 Allergies hydrochlorothiazide Adverse Reaction (Intermediate, Verified 02/26/20 21:30) syncope Home Medications: Ambulatory Orders Medication Instructions Recorded levothyroxine 75 mcg capsule 75 mcg PO QDAY cap 11/07/17 Latanoprost 0.005% [Xalatan 1 drp EACH EYE QHS 07/31/18 Opthalmic] Warfarin [Coumadin ([facility])] 3.5 mg PO SUMOFRSA 10/06/19 Warfarin [Coumadin ([facility])] 5 mg PO WETH 10/06/19 atorvastatin 10 mg tablet 10 mg PO QDAY #90 tab 11/17/19 atenolol 25 mg tablet 25 mg PO DAILY #30 tab 02/17/20 Surgical History: Surgical History (Last Reviewed 01/22/20 @ 14:57 by JESSEE Mckee) History of coronary artery stent placement (Resolved) Onset Date: 09/21/04 Z95.5 [id number] LAD 09/21/2004 Presence of permanent cardiac pacemaker (Chronic) Onset Date: 10/17/15 Z95.0 Permanent Pacemaker insertion, single chamber 10/17/15, [employer] History of bilateral cataract extraction Z98.41, Z98.42 History of bilateral knee replacement Z96.653 06/22/2014 History of craniotomy Onset Date: 09/13/08 Z98.890 09/13/08 for 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 History of radiofrequency ablation procedure for cardiac arrhythmia Z98.890 Surgical History: cataract, herniorrhaphy, pacemaker implantation, total knee arthroplasty, - - Neurosurgery for traumatic intracranial bleed 10 years ago or more Psychiatric History: No pertinent psych hx Lives: With Family, - - According to daughter, DNR-Comfort Care arrest Smoking Status: Former smoker Tobacco Use: Cigarettes Alcohol: None Drugs: None - *Family History Maternal Family History: Family History (Last Reviewed 01/22/20 @ 14:57 by JESSEE Mckee) Father CAD (coronary artery disease) Myocardial infarction Sudden cardiac Mother No problems noted. Uncle CAD (coronary artery disease) Sudden cardiac Myocardial infarction Other Heart disease History Items: No pertinent history Paternal Family History: Family History (Last Reviewed 01/22/20 @ 14:57 by JESSEE Mckee) Father CAD (coronary artery disease) Myocardial infarction Sudden cardiac Mother No problems noted. Uncle CAD (coronary artery disease) Sudden cardiac Myocardial infarction Other Heart disease History Items: - - father had mi at age 69 Review of Systems Constitutional: Reports: Weakness, Fatigue. Denies: Anorexia, Chills, Fever, Malaise, Weight Change Eyes: Denies: Blurred vision, Cataracts, Pain, Redness HEENT: Denies: Difficulty Hearing, Difficulty Swallowing, Head Aches, Hearing Changes, Sinus Congestion, Sinus Drainage Cardiovascular: Denies: Chest Pain, Claudication, Light Headedness, Orthopnea, Palpitations Respiratory: Denies: Cough, Shortness of Breath, Shortness of breath at rest, Shortness of breath upon exertion, Sputum production Gastrointestinal: Reports: Diarrhea. Denies: Abdominal Pain, Hematemesis, Hematochezia, Nausea, Vomiting Genitourinary: Denies: Dysuria, Frequency, Incontinence Musculoskeletal: Denies: Arm Pain, Back Pain, Joint Pain, Joint stiffness, Joint swelling, Joint Tenderness Skin: Denies: Dryness, Jaundice, Pruritis, Rash, Wounds Neurological: Denies: Difficulty swallowing, Focal weakness, Numbness, Tingling Psychiatric: Denies: Anxiety, Depression, Homicidal Ideations, Suicidal Ideations Hematologic/ Lymphatic: Denies: Easy Bruising, Easy Bleeding VTE Information - Inpt Only VTE Present on Admission: No VTE Pharm Prophylaxis ordered?: Yes Patient Problems: Active and Suspected Problems (Last Reviewed 01/22/20 @ 14:57 by JESSEE Mckee) TIA (transient ischemic attack) (Acute) Subtherapeutic international normalized ratio (INR) (Acute) Atrial fibrillation with RVR (Acute) Fever (Acute) Hypokalemia (Acute) - Physical Exam Vitals/I&O's: Vital Signs Temp Pulse Resp BP Pulse Ox 99.6 F H 141 H 18 150/120 H 94 02/26/20 21:14 02/26/20 22:30 02/26/20 22:30 02/26/20 22:30 02/26/20 22:30 Oxygen Delivery Method Room Air Weight: 86.69 kg Body Mass Index (BMI) 24.5 Finger Stick Blood Glucose 115 General: Alert, Oriented x3, Cooperative, No apparent distress HEENT: Atraumatic, PERRLA, EOMI, Normocephalic, - - hard of hearing Oral: Dry Mucosa Neck: Supple, No JVD, Negative Carotid Bruits Lungs: Clear to auscultation, Normal air movement Cardiovascular: Regular rate, No murmurs Abdomen: Bowel Sounds Present, Soft, Non Tender Extremities: No edema, Capillary Refill Less than 3 Seconds Skin: No rashes, No breakdown Musculoskeletal: No Tenderness to Palpation of Joints or Extremities Neurological: Cranial nerves II-XII grossly intact Psych/Mental Status: Normal Affect, Appropriate Laboratory Results 02/26/20 20:56: WBC 13.8 H, RBC 4.82, Hgb 14.4, Hct 42.1, MCV 87.3, MCH 29.9, MCHC 34.2 D, RDW Std Deviation 49.1 H, RDW Coeff of Carolyn 15.5 H, Plt Count 180, MPV 9.8, Immature Gran % (Auto) 0.400, Neut % (Auto) 87.3 H, Lymph % (Auto) 3.8 L, [place]ill % (Auto) 7.3, Eos % (Auto) 0.9, Baso % (Auto) 0.3, Absolute Neuts (auto) 12.1 H, Absolute Lymphs (auto) 0.53 L, Nucleated RBC % 0, Differential Comment SCANNED 02/26/20 20:56: PT 16.1 H, INR 1.4, APTT 29.6 02/26/20 20:56: Sodium 139, Potassium 3.2 L, Chloride 108 H, Carbon Dioxide 23.0, Anion Gap 8, BUN 17, Creatinine 1.24, Est GFR (MDRD) Af Amer 72, Est GFR (MDRD) Non-Af 59 L, BUN/Creatinine Ratio 13.7, Glucose 108 H, Calcium 7.8 L, Troponin I < 0.015 02/26/20 21:45: COVID-19 (KELLEN) Pending 02/26/20 21:45: Lactic Acid 1.0 02/26/20 22:00: Urine Color Yellow, Urine Clarity Sl. Cloudy, Urine pH 5.0, Ur Specific [place] 1.010, Urine Protein 15 H, Urine Glucose (UA) Normal, Urine Ketones 5 H, Urine Occult Blood 25 H, Urine Nitrite Negative, Urine Bilirubin Negative, Urine Urobilinogen 1 H, Ur Leukocyte Esterase Negative, Urine RBC 0-5 SEEN, Urine WBC 0 SEEN, Ur Squamous Epith Cells 0-5 SEEN, Urine Bacteria 0 SEEN, Urine Mucus 0 SEEN Current Medications Sodium Chloride () 1,000 mls @ 100 mls/hr IV .Q10H ONE Stop: 02/27/20 06:48 Last Admin: 02/26/20 22:01 Dose: 100 mls/hr Documented by: Sodium Chloride () 500 mls @ 999 mls/hr IV Q30M PRN PRN Reason: ANAL/RECTAL IRRITATIONS Potassium Chloride () 10 meq in 100 mls @ 100 mls/hr IV BOLUS Q1H EDNA Stop: 02/26/20 23:14 Last Admin: 02/26/20 22:30 Dose: 100 mls/hr Documented by: Labetalol HCl (Trandate) 20 mg IV X1 PRN PRN Reason: BLOOD PRESSURE Assessment/Plan All Active Problems (Last Reviewed 01/22/20 @ 14:57 by JESSEE Mckee) TIA (transient ischemic attack) (Acute) Subtherapeutic international normalized ratio (INR) (Acute) Atrial fibrillation with RVR (Acute) Fever (Acute) Hypokalemia (Acute) Fatigue (Acute) Light-headed feeling (Acute) History of coronary artery stent placement (Resolved 09/21/04) Debility (Resolved) Fall (Resolved) Hematoma (Resolved) Hip pain (Resolved) Left hip pain (Resolved) Left bundle branch block (Ruled-out) Supraventricular tachycardia (Ruled-out) 84 year old M with multiple comorbidities admitted with altered mental status, diarrhea and generalized weakness. 1. Generalized weakness, left-sided weakness, suggestive of TIA vs hypotension. Patient symptoms have all resolved at time of exam Brain CT was negative for any acute intracranial normality, CT of the head and neck showed minimal atherosclerotic disease COVID-19 test negative Will admit to PCU, monitor on telemetry, MRI of the brain (patient has a pacemaker, will have to clarify if compatible) Lipid profile in am, HbA1c, continue on atorvastatin, atenolol Recheck orthostatic vitals in a.m. 2. Acute diarrhea, nonbloody, unclear etiology We will check enteric panel, contact precautions 3. Acute metabolic encephalopathy, likely multifactorial, resolved Continue to monitor 4. Hypokalemia, replaced, recheck in a.m. Will also check magnesium level 5. Leukocytosis, likely reactive, recheck in a.m. 6. A. fib with RVR, on atenolol, Coumadin Will continue to monitor, INR is currently subtherapeutic, continue Coumadin 7. Hypertension, fairly controlled, continue on atenolol 8. Hypothyroidism, continue Synthroid 9. DVT prophylaxis -on Coumadin 10. Code status - DNR-CC - confirmed with patient and daughter at the bedside OBSV E&M: 25535 Initial observation care L3
[2020-02-27] VITALS (15 sets, daily range): BP systolic 90–150; BP diastolic 54–104; PULSE 76–126; RESP 18–26; TEMP 36.4–37.3; O2SAT 94–100; BMI 23.1; BMI 23.2
--- NOTE | 2020-02-27 01:05 | ECHOD_ITS ---
Reason For Study: TIA/CVA Procedure This was a 2D Doppler, Color Flow transthoracic echocardiogram. Exam performed portable in patient room. Left Ventricle Normal LV size. Left ventricular systolic function is normal. The estimated ejection fraction is 55 %. No regional wall motion abnormalities noted. Right Ventricle Normal RV size. ICD or pacer leads identified within the right ventricle. Normal systolic function. Atria The left atrium is mildly enlarged. The right atrium is moderately enlarged. Tricuspid Valve Normal tricuspid valve. Mild (1+) tricuspid valve insufficiency. Pulmonary artery systolic pressure is 34 mmHg. Aortic Valve Trisinus/trileaflet aortic valve. Trivial aortic valve insufficiency. Pulmonic Valve Normal pulmonic valve. Great Vessels Normal aortic root. The pulmonary artery is normal size. Normal inferior vena cava. Pericardium/Pleural No pericardial effusion. Medication Performed a rapid injection of agitated mix of 9 cc saline and 1cc air to assess for atrial septal defect. MMode/2D Measurements & Calculations LVIDd: 4.3 cm IVSd: 1.1 cm Ao root diam: 3.7 cm LVIDs: 3.4 cm LVPWd: 1.2 cm RVDd: 4.3 cm FS: 21.0 % LAV(MOD-bp): 82.0 ml LVAd ap4: 23.9 cm2 SV(MOD-sp4): 34.3 ml LAV(MOD-bp) Indexed: 38.5 ml/m2 EDV(MOD-sp4): 68.9 ml LAV(MOD-sp2): 87.4 ml EDV(sp4-el): 69.6 ml LAV(MOD-sp4): 75.2 ml LVAs ap4: 15.8 cm2 ESV(MOD-sp4): 34.6 ml ESV(sp4-el): 34.4 ml EF(MOD-sp4): 49.8 % EF(sp4-el): 50.6 % SV(sp4-el): 35.2 ml LA A4 area: 24.2 cm2 LA dimension(2D): 4.3 cm RA A4 area: 28.2 cm2 Doppler Measurements & Calculations MV E max justine: 97.5 cm/sec Ao V2 max: 123.8 cm/sec LV V1 max: 101.8 cm/sec Ao max P.2 mmHg LV V1 max P.2 mmHg Ao V2 mean: 84.9 cm/sec Ao mean P.2 mmHg Ao V2 VTI: 19.7 cm PA V2 max: 84.8 cm/sec TR max justine: 276.8 cm/sec TR max P.6 mmHg Interpretation Summary Normal LV size. Left ventricular systolic function is normal. The estimated ejection fraction is 55 %. Mild (1+) tricuspid valve insufficiency. The left atrium is mildly enlarged. The right atrium is moderately enlarged. Ordering Physician: Denisse Wong Referring Physician: Dariusz Gonzalez Chi Performed By: Roxi Gardner, LIZBETH, RVT
[2020-02-27 01:26] LABS: AST(SGOT) 22 U/L (15-37); Alanine Aminotransfer ALT/SGPT 13 U/L (16-61); Alkaline Phosphatase 100 U/L (45-117); Bilirubin, Direct 0.36 mg/dL (0.00-0.30); Globulin 3.5 g/dL (2.2-4.2); Magnesium 1.8 mg/dL (1.6-2.6); Protein, Total 6.5 g/dL (6.4-8.2)
[2020-02-27] MEDS: 0.9% Normal Saline 1,000 ML 100 ML IV ×2 (02:05→07:16)
[2020-02-27] MEDS: 0.9% Saline Lock 10 ML Syringe IV ×3 (02:05→17:23)
[2020-02-27 02:08] LABS: Hemoglobin A1c 5.8 % (3.8-5.6)
[2020-02-27] MEDS: Levothyroxine 75 MCG Tablet PO (05:40)
[2020-02-27 06:58] LABS: International Normalized Ratio 1.4; Prothrombin Time (Protime)PT. 16.6 SECONDS (11.7-14.9)
[2020-02-27] MEDS: Acetaminophen 325 MG Tablet 650 MG PO (07:49)
[2020-02-27 08:35] LABS: Cholesterol 97 mg/dL (200); High Density Lipoprotein 27 mg/dL; Triglycerides 68 mg/dL; Very Low Density Lipoprotein 14 mg/dL (5-40)
[2020-02-27 09:09] LABS: Anion Gap 10 (5-15); BUN 15 mg/dL (7-18); BUN/Creat Ratio 13.9 RATIO (10-20); Calcium,Total 7.7 mg/dL (8.5-10.1); Chloride 109 mmol/L (98-107); Creatinine, Serum 1.08 mg/dL (0.70-1.30); EST Glomerular Filtration Rate 69 mL/min (>60); Est Glom Filt Rate - Afr Amer 84 mL/min (>60); Estimated Creatinine Clearance 60.03 ml/min; Glucose 92 mg/dL (74-106); Phosphorus 2.7 mg/dL (2.5-4.9); Potassium 3.4 mmol/L (3.5-5.1); Sodium Level 139 mmol/L (136-145)
[2020-02-27] MEDS: Atenolol 25 MG Tablet PO (10:56)
--- NOTE | 2020-02-27 13:16 | CASEMGMT ---
STEVEN THOMPSON Face to Face with patient for initial transition planning/care coordination assessment. RN CM introduced self and role at [facility]. Patient lying in bed, alert and oriented, daughter at bedside. Patient willing to participate in assessment and is able to answer all questions appropriately. Care providers, pharmacy, and demographics verified. Patient wishes to discharge home, and would like [facility] for SN and therapy. RN JAY provided list of C agencies for patient and daughter to review. Patient states he has no further needs or concerns at this time. CM to follow for discharge planning needs that may arise. PCP: Carlos Specialists: John temperature regulator pyrometer Preferred Pharmacy: [facility] [place] Insurance: [employer], [place] Prescription Benefit: yes Living Will/HPOA: yes daughter Mar Hester HPOA LNOK: daughter, grandson Living Arrangements: Patient lives with daughter and grandson in 2 story home with bed and bath on first floor. 2 steps and grab bar/railing to enter the home. Patient states he was independent at home. Transportation: daughter DME/HHC: Patient has shower chair, raised toilet, walker, grab bars, and wheelchair. Patient and daughter reviewing HHC list. Disposition Plan: Patient to discharge home with HHC, family support, and follow-up plans in place. Karina DAVIDSON, RN, CM
--- NOTE | 2020-02-27 14:16 | PCM.PN.HOSP ---
<Everton Bajwa - Last Filed: 02/27/20 14:16> Patient Problems: Active and Suspected Problems (Last Reviewed 01/22/20 @ 14:57 by JESSEE Mckee) TIA (transient ischemic attack) (Acute) Subtherapeutic international normalized ratio (INR) (Acute) Atrial fibrillation with RVR (Acute) Fever (Acute) Hypokalemia (Acute) Reason for Visit: weakness, facial droop, diarrhea Subjective: Pt resting comfortably in bed NAD. Pt is unhappy that he has to stay in the hospital. He has improvement in his weakness. No BRYAN, dizziness, LH, focal weakness, swallowing issues. He has ongoing diarrhea. No nausea or vomiting, cramping or pain. No fever/chills. Pts daughter says he looks flushed and has not noticed the left facial droop. She also feels that he is stuttering his words. Vitals/I&O's: Vital Signs Temp Pulse Resp BP Pulse Ox 97.6 F L 103 H 18 116/54 L 97 02/27/20 09:20 02/27/20 11:00 02/27/20 09:20 02/27/20 09:20 02/27/20 09:20 Oxygen Delivery Method Room Air Weight: 180 lb 8.937 oz Body Mass Index (BMI) 23.1 Finger Stick Blood Glucose 115 Orthostatic Vital Signs Start: 02/27/20 04:10 Freq: q24h Status: Active Protocol: Activity Type Activity Date Activity User E-Sign Co-Sign Detail Recorded Client Recorded Date Recorded By Document 02/27/20 05:20 [facility] [id number] 02/27/20 06:06 [facility] 02/27/20 05:20 Orthostatic Vitals Standing -Blood Pressure (90/60-120/80 mm Hg) 90/70 -Extremity Use Left Arm -Pulse Rate (60-100 beats/min) 109 H Sitting -Blood Pressure (90/60-120/80 mm Hg) 118/75 -Extremity Use Left Arm -Pulse Rate (60-100 beats/min) 111 H Lying -Blood Pressure (90/60-120/80 mm Hg) 136/101 H -Extremity Use Left Arm -Pulse Rate (60-100 beats/min) 116 H Intake and Output for Last 24 Hours 02/25/20 02/26/20 02/27/20 23:59 23:59 23:59 Intake Total 100 / 100 1869.00 / 1869.00 Output Total 350 / 350 Balance 100 / 100 1519.00 / 1519.00 General: Alert, Oriented x3, Cooperative HEENT: Atraumatic, PERRLA, EOMI, Normocephalic Neck: Supple, No JVD, Negative Carotid Bruits Lungs: Clear to auscultation, Normal air movement Cardiovascular: Regular rate, No murmurs Abdomen: Bowel Sounds Present, Soft, Non Tender Extremities: No edema, Capillary Refill Less than 3 Seconds Skin: No rashes, No breakdown Musculoskeletal: No Tenderness to Palpation of Joints or Extremities Neurological: Facial Droop - left, - - exam otherwise normal. Psych/Mental Status: - - angry, Alert and oriented to time, place, person, mood and affect Laboratory Results 02/26/20 20:56: WBC 13.8 H, RBC 4.82, Hgb 14.4, Hct 42.1, MCV 87.3, MCH 29.9, MCHC 34.2 D, RDW Std Deviation 49.1 H, RDW Coeff of Carolyn 15.5 H, Plt Count 180, MPV 9.8, Immature Gran % (Auto) 0.400, Neut % (Auto) 87.3 H, Lymph % (Auto) 3.8 L, Walton % (Auto) 7.3, Eos % (Auto) 0.9, Baso % (Auto) 0.3, Absolute Neuts (auto) 12.1 H, Absolute Lymphs (auto) 0.53 L, Nucleated RBC % 0, Differential Comment SCANNED 02/26/20 20:56: PT 16.1 H, INR 1.4, APTT 29.6 02/26/20 20:56: Sodium 139, Potassium 3.2 L, Chloride 108 H, Carbon Dioxide 23.0, Anion Gap 8, BUN 17, Creatinine 1.24, Est GFR (MDRD) Af Amer 72, Est GFR (MDRD) Non-Af 59 L, BUN/Creatinine Ratio 13.7, Glucose 108 H, Calcium 7.8 L, Magnesium 1.8, Total Bilirubin 1.10 H, Direct Bilirubin 0.36 H, AST 22, ALT 13 L, Alkaline Phosphatase 100, Troponin I < 0.015, Total Protein 6.5, Albumin 3.0 L, Globulin 3.5 02/26/20 20:56: Hemoglobin A1c 5.8 H 02/26/20 21:45: COVID-19 (KELLEN) Not Detected 02/26/20 21:45: Lactic Acid 1.0 02/26/20 22:00: Urine Color Yellow, Urine Clarity Sl. Cloudy, Urine pH 5.0, Ur Specific Bassett 1.010, Urine Protein 15 H, Urine Glucose (UA) Normal, Urine Ketones 5 H, Urine Occult Blood 25 H, Urine Nitrite Negative, Urine Bilirubin Negative, Urine Urobilinogen 1 H, Ur Leukocyte Esterase Negative, Urine RBC 0-5 SEEN, Urine WBC 0 SEEN, Ur Squamous Epith Cells 0-5 SEEN, Urine Bacteria 0 SEEN, Urine Mucus 0 SEEN 02/27/20 01:33: Troponin I < 0.015 02/27/20 05:25: PT 16.6 H, INR 1.4 02/27/20 05:25: Triglycerides 68, Cholesterol 97, LDL Cholesterol 56, VLDL Cholesterol 14, HDL Cholesterol 27 L 02/27/20 05:25: Sodium 139, Potassium 3.4 L, Chloride 109 H, Carbon Dioxide 20.0 L, Anion Gap 10, BUN 15, Creatinine 1.08, Estim Creat Clear Calc 60.03, Est GFR (MDRD) Af Amer 84, Est GFR (MDRD) Non-Af 69, BUN/Creatinine Ratio 13.9, Glucose 92, Calcium 7.7 L, Phosphorus 2.7 02/27/20 05:25: Phosphorus Cancelled Current Medications Acetaminophen (Tylenol) 650 mg PO Q4H PRN PRN PRN Reason: Headache/Temp>99.6F Last Admin: 02/27/20 07:49 Dose: 650 mg Documented by: Acetaminophen (Tylenol Liquid) 650 mg NG Q4H PRN PRN PRN Reason: Headache/Temp>99F Atenolol (Tenormin (Beta Long)) 25 mg PO DAILY [facility] Last Admin: 02/27/20 10:56 Dose: 25 mg Documented by: Atorvastatin Calcium (Lipitor) 40 mg PO DAILY@2200 E[facility] Sodium Chloride () 1,000 mls @ 100 mls/hr IV .Q10H [facility] Stop: 02/27/20 16:04 Last Admin: 02/27/20 07:16 Dose: 100 mls/hr Documented by: Sodium Chloride () 250 mls @ 15 mls/hr IV .[id number] PRN PRN Reason: Saline Flush Sodium Chloride () 250 mls @ 15 mls/hr IV .[id number] PRN PRN Reason: Additional IVPB Infusion Latanoprost (Xalatan Opthalmic) 1 drop EACH EYE QHS [facility] Levothyroxine Sodium (Synthroid) 75 mcg PO DAILY@0600 [facility] Last Admin: 02/27/20 05:40 Dose: 75 mcg Documented by: Nutritional Formula (Lactose Free) (Ensure Enlive) 120 ml PO 4X/DAY E[facility] Last Admin: 02/27/20 10:53 Dose: 120 ml Documented by: Potassium Chloride (K-Dur) 40 meq PO DAILYCM [facility] Sodium Chloride () 10 - 40 ml IV UD PRN PRN Reason: SALINE FLUSH Last Admin: 02/27/20 10:53 Dose: 10 ml Documented by: Warfarin Sodium (Jantoven) 2.5 mg PO SuMoFrSa@1700 EDNA; Protocol Warfarin Sodium (Coumadin (Pbkc)) 5 mg PO TuWeTh@1700 E[facility]; Protocol Warfarin Sodium (Jantoven) 1 mg PO SuMoFrSa@1700 E[facility]; Protocol STROKE Vital Signs/Narrative: Vital Signs Pulse 02/27/20 11:00 103 H Medical Necessity - Tobacco Use Smoking Status: Former smoker Tobacco Use: Cigarettes Assessment/Plan All Active Problems (Last Reviewed 01/22/20 @ 14:57 by JESSEE Mckee) TIA (transient ischemic attack) (Acute) Subtherapeutic international normalized ratio (INR) (Acute) Atrial fibrillation with RVR (Acute) Fever (Acute) Hypokalemia (Acute) Fatigue (Acute) Light-headed feeling (Acute) History of coronary artery stent placement (Resolved 09/21/04) Debility (Resolved) Fall (Resolved) Hematoma (Resolved) Hip pain (Resolved) Left hip pain (Resolved) Left bundle branch block (Ruled-out) Supraventricular tachycardia (Ruled-out) 1. Encephalopathy vs CVA - pt cannot have MRI due to pacemaker. INR subtherapeutic. Ongoing left facial droop. CT brain repeat in AM. Neuro consult. PT/OT/ST evals. UA neg. Echo done, no ASD. Check tsh. Electrolytes replaced. 2. Acute gastroenteritis, suspect viral - ongoing diarrhea however culture has not been obtained. leukocytosis and tachy on admission, negative lactate. Nonbloody. Blood cx pending. 3. Chronic afib - PM in place. Rate improved. INR subtherapeutic will give additional 1 mg tonight. 4. CAD with hx stent DVT ppx: warfarin DC planning: PTOT, daughter at home time clerk to help with care. This patient was seen by Everton Bajwa PA-C under the supervision of Dr. Simmons. <Dea Simmons - Last Filed: 02/27/20 16:10> Subjective: I agree with the above and the following is a reflection of my own history and physical Pt states that he is fine. All sx resolved. Is having loose stools 3-4 times per day and this is new. No recent ABX. Did start atenolol on 02/17. Wants to go home. Vitals/I&O's: Vital Signs Temp Pulse Resp BP Pulse Ox 97.6 F L 101 H 18 124/83 H 94 02/27/20 13:20 02/27/20 15:00 02/27/20 13:20 02/27/20 13:20 02/27/20 13:20 Oxygen Delivery Method Room Air Weight: 81.9 kg Body Mass Index (BMI) 23.1 Finger Stick Blood Glucose 115 Orthostatic Vital Signs Start: 02/27/20 04:10 Freq: q24h Status: Active Protocol: Activity Type Activity Date Activity User E-Sign Co-Sign Detail Recorded Client Recorded Date Recorded By Document 02/27/20 05:20 [facility] [id number] 02/27/20 06:06 [facility] 02/27/20 05:20 Orthostatic Vitals Standing -Blood Pressure (90/60-120/80) 90/70 -Extremity Use Left Arm -Pulse Rate (60-100) 109 H Sitting -Blood Pressure (90/60-120/80) 118/75 -Extremity Use Left Arm -Pulse Rate (60-100) 111 H Lying -Blood Pressure (90/60-120/80) 136/101 H -Extremity Use Left Arm -Pulse Rate (60-100) 116 H Intake and Output for Last 24 Hours 02/25/20 02/26/20 02/27/20 23:59 23:59 23:59 Intake Total 100 / 100 1869.00 / 1869.00 Output Total 350 / 350 Balance 100 / 100 1519.00 / 1519.00 General: Alert, Oriented x3, Cooperative, No apparent distress, Well developed, Well nourished, - - elderly WM sitting up in bed, daughter at bedside, pt appears well HEENT: Atraumatic, PERRLA, EOMI, Normocephalic, EAC Clear Oral: Moist Mucosa, No Gingival or Mucosal Lesions/ Ulcerations Neck: Supple, No JVD, Negative Hepatojugular Reflux, No Nodes, No Nuchal Rigidity, Trachea Midline, Thyroid Normal Size and Texture Lungs: Clear to auscultation, Normal air movement, No rhonchi, No wheeze, No rales Cardiovascular: Regular rate, Regular Rhythm, Normal S1, Normal S2, No murmurs, No rub noted, No Gallop, - - few ectopic beats Abdomen: Bowel Sounds Present, Soft, Non Tender, Non-Distended, No hernias noted Extremities: No clubbing, No cyanosis, No edema, Capillary Refill Less than 3 Seconds, Peripheral Pulses Normal Skin: No rashes, No breakdown, - - onychomycosis B feel Musculoskeletal: No Muscle Wasting, Arthritic Changes Lymphatic: No Cervical, Supraclavicular, or Inguinal Adenopathy Neurological: Deep Tendon Reflexes 2+/4 and Symmetrical, Facial Droop - left-mild, Muscle tone normal, Sensory exam intact to light touch and pain, Coordination normal Psych/Mental Status: Normal Affect, Appropriate, - - angry--> was calmer for me, Alert and oriented to time, place, person, mood and affect Laboratory Results 02/26/20 20:56: WBC 13.8 H, RBC 4.82, Hgb 14.4, Hct 42.1, MCV 87.3, MCH 29.9, MCHC 34.2 D, RDW Std Deviation 49.1 H, RDW Coeff of Carolyn 15.5 H, Plt Count 180, MPV 9.8, Immature Gran % (Auto) 0.400, Neut % (Auto) 87.3 H, Lymph % (Auto) 3.8 L, Walton % (Auto) 7.3, Eos % (Auto) 0.9, Baso % (Auto) 0.3, Absolute Neuts (auto) 12.1 H, Absolute Lymphs (auto) 0.53 L, Nucleated RBC % 0, Differential Comment SCANNED 02/26/20 20:56: PT 16.1 H, INR 1.4, APTT 29.6 02/26/20 20:56: Sodium 139, Potassium 3.2 L, Chloride 108 H, Carbon Dioxide 23.0, Anion Gap 8, BUN 17, Creatinine 1.24, Est GFR (MDRD) Af Amer 72, Est GFR (MDRD) Non-Af 59 L, BUN/Creatinine Ratio 13.7, Glucose 108 H, Calcium 7.8 L, Magnesium 1.8, Total Bilirubin 1.10 H, Direct Bilirubin 0.36 H, AST 22, ALT 13 L, Alkaline Phosphatase 100, Troponin I < 0.015, Total Protein 6.5, Albumin 3.0 L, Globulin 3.5 02/26/20 20:56: Hemoglobin A1c 5.8 H 02/26/20 21:45: COVID-19 (KELLEN) Not Detected 02/26/20 21:45: Lactic Acid 1.0 02/26/20 22:00: Urine Color Yellow, Urine Clarity Sl. Cloudy, Urine pH 5.0, Ur Specific Bassett 1.010, Urine Protein 15 H, Urine Glucose (UA) Normal, Urine Ketones 5 H, Urine Occult Blood 25 H, Urine Nitrite Negative, Urine Bilirubin Negative, Urine Urobilinogen 1 H, Ur Leukocyte Esterase Negative, Urine RBC 0-5 SEEN, Urine WBC 0 SEEN, Ur Squamous Epith Cells 0-5 SEEN, Urine Bacteria 0 SEEN, Urine Mucus 0 SEEN 02/27/20 01:33: Troponin I < 0.015 02/27/20 05:25: PT 16.6 H, INR 1.4 02/27/20 05:25: Triglycerides 68, Cholesterol 97, LDL Cholesterol 56, VLDL Cholesterol 14, HDL Cholesterol 27 L 02/27/20 05:25: Sodium 139, Potassium 3.4 L, Chloride 109 H, Carbon Dioxide 20.0 L, Anion Gap 10, BUN 15, Creatinine 1.08, Estim Creat Clear Calc 60.03, Est GFR (MDRD) Af Amer 84, Est GFR (MDRD) Non-Af 69, BUN/Creatinine Ratio 13.9, Glucose 92, Calcium 7.7 L, Phosphorus 2.7 02/27/20 05:25: Phosphorus Cancelled 02/27/20 05:25: TSH 0.83 Current Medications Acetaminophen (Tylenol) 650 mg PO Q4H PRN PRN PRN Reason: Headache/Temp>99.6F Last Admin: 02/27/20 07:49 Dose: 650 mg Documented by: Acetaminophen (Tylenol Liquid) 650 mg NG Q4H PRN PRN PRN Reason: Headache/Temp>99F Atorvastatin Calcium (Lipitor) 40 mg PO DAILY@2200 [facility] Sodium Chloride () 1,000 mls @ 100 mls/hr IV .Q10H [facility] Stop: 02/27/20 16:04 Last Admin: 02/27/20 07:16 Dose: 100 mls/hr Documented by: Sodium Chloride () 250 mls @ 15 mls/hr IV .[id number] PRN PRN Reason: Saline Flush Sodium Chloride () 250 mls @ 15 mls/hr IV .[id number] PRN PRN Reason: Additional IVPB Infusion Latanoprost (Xalatan Opthalmic) 1 drop EACH EYE QHS [facility] Levothyroxine Sodium (Synthroid) 75 mcg PO DAILY@0600 [facility] Last Admin: 02/27/20 05:40 Dose: 75 mcg Documented by: Nutritional Formula (Lactose Free) (Ensure Enlive) 120 ml PO 4X/DAY [facility] Last Admin: 02/27/20 14:15 Dose: 120 ml Documented by: Potassium Chloride (K-Dur) 40 meq PO DAILYCM [facility] Sodium Chloride () 10 - 40 ml IV UD PRN PRN Reason: SALINE FLUSH Last Admin: 02/27/20 10:53 Dose: 10 ml Documented by: Warfarin Sodium (Jantoven) 2.5 mg PO SuMoFrSa@1700 EDNA; Protocol Warfarin Sodium (Coumadin (Pbkc)) 5 mg PO TuWeTh@1700 EDNA; Protocol Warfarin Sodium (Jantoven) 1 mg PO SuMoFrSa@1700 EDNA; Protocol STROKE Vital Signs/Narrative: Vital Signs Temp Pulse Resp BP Pulse Ox 02/27/20 15:00 101 H 02/27/20 13:20 97.6 F L 76 18 124/83 H 94 Assessment/Plan ASSESSMENT L sided weakness and L facial droop MS changes--> now back to baseline Diarrhea Hypokalemia NAGMA 2/2 Hyperchlormia CAD HTN HPL H/O SDH A-fib Bradycardia--> Pacer placement n(?SSS) Hypothyroidism PLAN -INR's have not been therapeutic with last therapeutic INR 09/2019 -continue for now but consider NOAC if not an issues with the SDH -D/C IVF -CT in am (unable to have MRI 09/20 pacer) -ECHO reviewed--> EWF 65% and CRISELDA -neuro consultation -d/c atenolol with diarrhea and monitor -stool sample pending -lytes replaced -DNR CCA -may need alternative BB for HR -PT/OT Inpatient E&M: 12051 Subs Hosp L3
[2020-02-27 15:43] LABS: Thyroid Stim Hormone (TSH) 0.83 uIU/mL (0.358-3.74)
--- NOTE | 2020-02-27 21:32 | NURSING ---
Pt. refused assessment by SOC consult via TeleMed. on states family must be at bedside to give consent since pt. is uncooperative and would not consent to assessment.
[2020-02-28] VITALS (15 sets, daily range): BP systolic 124–168; BP diastolic 78–113; PULSE 96–142; RESP 16–18; TEMP 36.6–37.3; O2SAT 96–99
[2020-02-28] MEDS: Metoprolol Tartrate 5 MG/5 ML Vial IV ×2 (00:08→02:12)
--- NOTE | 2020-02-28 00:55 | NURSING ---
Handoff report given to Chris Hill RN who is assuming care of this pt. at this time.
[2020-02-28] MEDS: 0.9% Saline Lock 10 ML Syringe IV (02:12)
[2020-02-28] MEDS: Atenolol 25 MG Tablet PO (05:12)
[2020-02-28] MEDS: Levothyroxine 75 MCG Tablet PO (05:12)
--- NOTE | 2020-02-28 05:55 | CT_ITS ---
HISTORY: ON GOING LEFT SIDED FACIAL DROOP Prior right craniotomy for hematoma evacuation. Left frontal convexity small enhancing lesion by recent CTA exam. TECHNIQUE: Multiple axial images were obtained of the brain without intravenous contrast. A radiation dose optimization technique was used for this scan. COMPARISON: CT brain without and with contrast 02/26/2020 FINDINGS: No significant change. Right temporoparietal craniotomy transfixed with 6 metallic clamps. The craniotomy flap is stable. Mild central and cortical cerebral atrophy together with mild cerebellar atrophy. White matter small vessel chronic ischemic change. Symmetrical benign appearing basal ganglia calcifications. No intracranial hemorrhage or acute disease. No significant mass-effect. The previously identified small enhancing extra-axial left frontal lesion is not evident by noncontrast exam. Stable posterior fossa. No suspicious extra-axial fluid collection. CT/Brain/Head without Contrast IMPRESSION: 1. Stable findings. No intracranial hemorrhage or acute intracranial disease. 2. White matter small vessel chronic ischemic change. 3. Generalized atrophy. Individualized dose optimization techniques were used for this CT. at 0654 Reported and signed by: Eric Pinedo MD Electronically Signed: Eric Pinedo, at 6:53 EDT Tel , Service support ,
[2020-02-28 06:41] LABS: Basophil# 0.07 X10^3/uL; Basophil% 0.7 % (0-1); Eosinophil# 0.08 X10^3/uL; Eosinophils% 0.8 % (0-5); Hematocrit 42.8 % (40-54); Hemoglobin 14.4 g/dL (13.0-16.5); Lymphocyte % 11.4 % (19-41); Mean Corp Hgb Conc 33.6 g/dL (32-36); Mean Corpuscular Hgb 29.3 pg (27.0-32.0); Mean Corpuscular Volume 87.2 fL (80-94); Mean Platelet Vol. 9.9 fl (6.2-12.0); Monocyte% 10.5 % (0-10); NRBC Flagged by Analyzer 0 % (0-5); Neutrophil # 8.01 X10^3/uL (2.7-7.7); Neutrophil % 76.2 % (47-70); Platelet Count 188 K/mm3 (150-450); RBC Distribution Width CV 15.3 % (11.6-14.6); RBC Distribution Width SD 47.9 fl (35.1-43.9); Red Blood Count 4.91 M/mm3 (4.6-6.2); White Blood Count 10.5 K/mm3 (4.4-11.0)
[2020-02-28 06:50] LABS: International Normalized Ratio 1.2; Prothrombin Time (Protime)PT. 14.9 SECONDS (11.7-14.9)
[2020-02-28 07:15] LABS: Anion Gap 8 (5-15); BUN 13 mg/dL (7-18); BUN/Creat Ratio 11.3 RATIO (10-20); Chloride 103 mmol/L (98-107); Creatinine, Serum 1.15 mg/dL (0.70-1.30); EST Glomerular Filtration Rate 65 mL/min (>60); Est Glom Filt Rate - Afr Amer 78 mL/min (>60); Estimated Creatinine Clearance 56.38 ml/min; Glucose 95 mg/dL (74-106); Sodium Level 135 mmol/L (136-145)
[2020-02-28 08:55] LABS: Magnesium 2.1 mg/dL (1.6-2.6)
[2020-02-28] MEDS: APIXABAN 2.5 MG TABLET PO ×2 (09:38→21:07)
[2020-02-28] MEDS: 0.9% Normal Saline 1,000 ML 100 ML IV ×2 (09:39→19:46)
--- NOTE | 2020-02-28 11:11 | PCM.PN.HOSP ---
<Everton Bajwa - Last Filed: 02/28/20 11:11> Patient Problems: Active and Suspected Problems (Last Reviewed 01/22/20 @ 14:57 by JESSEE Mckee) TIA (transient ischemic attack) (Acute) Subtherapeutic international normalized ratio (INR) (Acute) Atrial fibrillation with RVR (Acute) Fever (Acute) Hypokalemia (Acute) Reason for Visit: diarrhea Subjective: pt resting comfortably in chair at bedside. pt upset that he is still here. diarrhea ongoing most of the day yesterday. none this AM as of the time of my exam. no abd pain. No n/v. tolerating PO. Pt family brought in his own salt because he is unhappy with the cardiac diet here. He has no fever/chills. He had some tachycardia this AM and was given beta blockers then started on CCB this AM. BP ok so far. No dizziness/LH. No palp. Vitals/I&O's: Vital Signs Temp Pulse Resp BP Pulse Ox 97.9 F 112 H 18 136/87 H 98 02/28/20 07:00 02/28/20 07:00 02/28/20 07:00 02/28/20 07:00 02/28/20 07:20 Oxygen Delivery Method Room Air Weight: 180 lb 8.937 oz Body Mass Index (BMI) 23.1 Finger Stick Blood Glucose 115 Orthostatic Vital Signs Start: 02/27/20 04:10 Freq: q24h Status: Active Protocol: Activity Type Activity Date Activity User E-Sign Co-Sign Detail Recorded Client Recorded Date Recorded By Document 02/28/20 05:00 [id number] 02/28/20 05:52 02/28/20 05:00 Orthostatic Vitals Standing -Blood Pressure (90/60-120/80) 124/83 H -Extremity Use Left Arm -Pulse Rate (60-100) 128 H Sitting -Blood Pressure (90/60-120/80) 128/105 H -Extremity Use Left Arm -Pulse Rate (60-100) 127 H Lying -Blood Pressure (90/60-120/80) 159/113 H -Extremity Use Left Arm -Pulse Rate (60-100) 120 H Intake and Output for Last 24 Hours 02/26/20 02/27/20 02/28/20 23:59 23:59 23:59 Intake Total 100 / 100 3229.00 / 3229.00 540 / 540 Output Total 450 / 450 2250 / 2250 Balance 100 / 100 2779.00 / 2779.00 -1710 / -1710 General: Alert, Oriented x3, Cooperative HEENT: Atraumatic, PERRLA, EOMI, Normocephalic Neck: Supple, No JVD, Negative Carotid Bruits Lungs: Clear to auscultation, Normal air movement Cardiovascular: Regular rate, No murmurs Abdomen: Bowel Sounds Present, Soft, Non Tender Extremities: No edema, Capillary Refill Less than 3 Seconds Skin: No rashes, No breakdown Musculoskeletal: No Tenderness to Palpation of Joints or Extremities Neurological: Cranial nerves II-XII grossly intact Psych/Mental Status: Normal Affect, Appropriate, Alert and oriented to time, place, person, mood and affect Microbiology Past 72 Hours 02/28/20 02:20 Stool Enteric Bacteriology - Final 02/26/20 21:45 Blood Culture (Wb) - Anticubital Left Blood Culture - Preliminary Laboratory Results 02/27/20 05:25: TSH 0.83 02/28/20 06:30: PT 14.9, INR 1.2 02/28/20 06:30: WBC 10.5, RBC 4.91, Hgb 14.4, Hct 42.8, MCV 87.2, MCH 29.3, MCHC 33.6, RDW Std Deviation 47.9 H, RDW Coeff of Carolyn 15.3 H, Plt Count 188, MPV 9.9, Immature Gran % (Auto) 0.400, Neut % (Auto) 76.2 H, Lymph % (Auto) 11.4 L, Smith % (Auto) 10.5 H, Eos % (Auto) 0.8, Baso % (Auto) 0.7, Absolute Neuts (auto) 8.0 H, Absolute Lymphs (auto) 1.20, Nucleated RBC % 0 02/28/20 06:30: Sodium 135 L, Potassium 3.0 L, Chloride 103, Carbon Dioxide 24.0, Anion Gap 8, BUN 13, Creatinine 1.15, Estim Creat Clear Calc 56.38, Est GFR (MDRD) Af Amer 78, Est GFR (MDRD) Non-Af 65, BUN/Creatinine Ratio 11.3, Glucose 95, Calcium 8.0 L 02/28/20 06:30: Magnesium 2.1 Current Medications Acetaminophen (Tylenol) 650 mg PO Q4H PRN PRN PRN Reason: Headache/Temp>99.6F Last Admin: 02/27/20 07:49 Dose: 650 mg Documented by: Acetaminophen (Tylenol Liquid) 650 mg NG Q4H PRN PRN PRN Reason: Headache/Temp>99F Apixaban (Eliquis) 2.5 mg PO BID [facility] Last Admin: 02/28/20 09:38 Dose: 2.5 mg Documented by: Atenolol (Tenormin (Beta Long)) 25 mg PO DAILY [facility] Last Admin: 02/28/20 05:12 Dose: 25 mg Documented by: Atorvastatin Calcium (Lipitor) 40 mg PO DAILY@2200 [facility] Last Admin: 02/27/20 22:51 Dose: Not Given Documented by: Sodium Chloride () 250 mls @ 15 mls/hr IV .[id number] PRN PRN Reason: Saline Flush Sodium Chloride () 250 mls @ 15 mls/hr IV .[id number] PRN PRN Reason: Additional IVPB Infusion Sodium Chloride () 1,000 mls @ 100 mls/hr IV .Q10H [facility] Last Admin: 02/28/20 09:39 Dose: 100 mls/hr Documented by: Latanoprost (Xalatan Opthalmic) 1 drop EACH EYE QHS [facility] Last Admin: 02/27/20 22:51 Dose: Not Given Documented by: Levothyroxine Sodium (Synthroid) 75 mcg PO DAILY@0600 [facility] Last Admin: 02/28/20 05:12 Dose: 75 mcg Documented by: Nutritional Formula (Lactose Free) (Ensure Enlive) 120 ml PO 4X/DAY [facility] Last Admin: 02/28/20 09:38 Dose: 120 ml Documented by: Potassium Chloride (K-Dur) 40 meq PO DAILYCM [facility] Last Admin: 02/28/20 09:38 Dose: 40 meq Documented by: Sodium Chloride () 10 - 40 ml IV UD PRN PRN Reason: SALINE FLUSH Last Admin: 02/28/20 02:12 Dose: 10 ml Documented by: Sodium Chloride () 10 - 40 ml IV UD PRN PRN Reason: SALINE FLUSH Tamsulosin HCl (Flomax) 0.4 mg PO DAILY@1730 [facility] STROKE Vital Signs/Narrative: Vital Signs Pulse Ox 02/28/20 07:20 98 Medical Necessity - Tobacco Use Smoking Status: Never smoker Tobacco Use: Non-smoker Assessment/Plan All Active Problems (Last Reviewed 01/22/20 @ 14:57 by JESSEE Mckee) TIA (transient ischemic attack) (Acute) Subtherapeutic international normalized ratio (INR) (Acute) Atrial fibrillation with RVR (Acute) Fever (Acute) Hypokalemia (Acute) Fatigue (Acute) Light-headed feeling (Acute) History of coronary artery stent placement (Resolved 09/21/04) Debility (Resolved) Fall (Resolved) Hematoma (Resolved) Hip pain (Resolved) Left hip pain (Resolved) Left bundle branch block (Ruled-out) Supraventricular tachycardia (Ruled-out) 1. Encephalopathy vs CVA - repeat CT neg tho this does not completely rule out stroke. warfarin subtherapeutic, changed to eliquis. Echo EF 55%, no wall abnormalities, 1+ TVI, PASP 34mmHg, no ASD. Continue statin. 2. Acute gastroenteritis, suspect viral - ongoing diarrhea however culture has not been obtained. leukocytosis and tachy on admission, negative lactate. Nonbloody. Blood cx pending. atenolol stopped due to diarrhea affect. WBC resolved. Enteric panel neg. Blood culture with 1 of 4 tubes with GPC clusters, suspect contaminate defer abx while awaiting final cx. Continue electrolyte replacement. 3. Chronic afib/RVR - PM in place. Cardizem started. Eliquis started. 4. CAD with hx stent 5. Suspect underlying dementia - CT brain with atrophy. pt behavior irrational, worse in the evening. needs o/p follow up with mental status evaluations and further quantification. 6. Urinary retention - hernandez in place. UA neg. flomax started. voiding trial tomorrow. DVT ppx: warfarin DC planning: PTOT, daughter at home time piece repairer to help with care. Monitor heart rate overnight. home tomorrow if stable overnight. This patient was seen by Everton Bajwa PA-C under the supervision of Dr. Simmons. <Dea Simmons - Last Filed: 02/28/20 12:05> Subjective: I agree with the above and the following is based on my independent history and exam Some increased agitation and tachycardia overnight. found to have urinary retention and Hernandez placed. Daughter came in and that seemed to help calm him. Was given metoprolol x 1 dose HR was in 140's now to 110-120. Pt with some confusion this am. Vitals/I&O's: Vital Signs Temp Pulse Resp BP Pulse Ox 97.9 F 112 H 18 136/87 H 98 02/28/20 07:00 02/28/20 07:00 02/28/20 07:00 02/28/20 07:00 02/28/20 07:20 Oxygen Delivery Method Room Air Weight: 81.9 kg Body Mass Index (BMI) 23.1 Finger Stick Blood Glucose 115 Orthostatic Vital Signs Start: 02/27/20 04:10 Freq: q24h Status: Active Protocol: Activity Type Activity Date Activity User E-Sign Co-Sign Detail Recorded Client Recorded Date Recorded By Document 02/28/20 05:00 [id number] 02/28/20 05:52 CS 02/28/20 05:00 Orthostatic Vitals Standing -Blood Pressure (90/60-120/80) 124/83 H -Extremity Use Left Arm -Pulse Rate (60-100) 128 H Sitting -Blood Pressure (90/60-120/80) 128/105 H -Extremity Use Left Arm -Pulse Rate (60-100) 127 H Lying -Blood Pressure (90/60-120/80) 159/113 H -Extremity Use Left Arm -Pulse Rate (60-100) 120 H Intake and Output for Last 24 Hours 02/26/20 02/27/20 02/28/20 23:59 23:59 23:59 Intake Total 100 / 100 3229.00 / 3229.00 540 / 540 Output Total 450 / 450 2250 / 2250 Balance 100 / 100 2779.00 / 2779.00 -1710 / -1710 General: Alert, Cooperative, No apparent distress, Well developed, Well nourished, - - oriented to self, place, month, but not year or POTUS HEENT: Atraumatic, PERRLA, EOMI, Normocephalic, EAC Clear Oral: Moist Mucosa, No Gingival or Mucosal Lesions/ Ulcerations Neck: Supple, No JVD, No Nodes, Trachea Midline Lungs: Clear to auscultation, Normal air movement, No rhonchi, No wheeze, No rales Cardiovascular: Normal S1, Normal S2, No murmurs, Irregular Rate, Tachycardic - mild Abdomen: Bowel Sounds Present, Soft, Non Tender, Non-Distended, Obese, No hernias noted Extremities: No clubbing, No cyanosis, No edema, Capillary Refill Less than 3 Seconds, Peripheral Pulses Normal Skin: No rashes, No breakdown Musculoskeletal: No Tenderness to Palpation of Joints or Extremities, No Muscle Wasting, Arthritic Changes Lymphatic: No Cervical, Supraclavicular, or Inguinal Adenopathy Neurological: Cranial nerves II-XII grossly intact, Neuro grossly intact, Motor Exam 5/5 strength throughout Psych/Mental Status: Normal Affect, Appropriate, Alert and oriented to time, place, person, mood and affect Microbiology Past 72 Hours 02/28/20 02:20 Stool Enteric Bacteriology - Final 02/26/20 21:45 Blood Culture (Wb) - Anticubital Left Blood Culture - Preliminary Laboratory Results 02/27/20 05:25: TSH 0.83 02/28/20 06:30: PT 14.9, INR 1.2 02/28/20 06:30: WBC 10.5, RBC 4.91, Hgb 14.4, Hct 42.8, MCV 87.2, MCH 29.3, MCHC 33.6, RDW Std Deviation 47.9 H, RDW Coeff of Carolyn 15.3 H, Plt Count 188, MPV 9.9, Immature Gran % (Auto) 0.400, Neut % (Auto) 76.2 H, Lymph % (Auto) 11.4 L, Smith % (Auto) 10.5 H, Eos % (Auto) 0.8, Baso % (Auto) 0.7, Absolute Neuts (auto) 8.0 H, Absolute Lymphs (auto) 1.20, Nucleated RBC % 0 02/28/20 06:30: Sodium 135 L, Potassium 3.0 L, Chloride 103, Carbon Dioxide 24.0, Anion Gap 8, BUN 13, Creatinine 1.15, Estim Creat Clear Calc 56.38, Est GFR (MDRD) Af Amer 78, Est GFR (MDRD) Non-Af 65, BUN/Creatinine Ratio 11.3, Glucose 95, Calcium 8.0 L 02/28/20 06:30: Magnesium 2.1 Current Medications Acetaminophen (Tylenol) 650 mg PO Q4H PRN PRN PRN Reason: Headache/Temp>99.6F Last Admin: 02/27/20 07:49 Dose: 650 mg Documented by: Acetaminophen (Tylenol Liquid) 650 mg NG Q4H PRN PRN PRN Reason: Headache/Temp>99F Apixaban (Eliquis) 2.5 mg PO BID [facility] Last Admin: 02/28/20 09:38 Dose: 2.5 mg Documented by: Atenolol (Tenormin (Beta Long)) 25 mg PO DAILY [facility] Last Admin: 02/28/20 05:12 Dose: 25 mg Documented by: Atorvastatin Calcium (Lipitor) 40 mg PO DAILY@2200 [facility] Last Admin: 02/27/20 22:51 Dose: Not Given Documented by: Sodium Chloride () 250 mls @ 15 mls/hr IV .[id number] PRN PRN Reason: Saline Flush Sodium Chloride () 250 mls @ 15 mls/hr IV .[id number] PRN PRN Reason: Additional IVPB Infusion Sodium Chloride () 1,000 mls @ 100 mls/hr IV .Q10H [facility] Last Admin: 02/28/20 09:39 Dose: 100 mls/hr Documented by: Latanoprost (Xalatan Opthalmic) 1 drop EACH EYE QHS [facility] Last Admin: 02/27/20 22:51 Dose: Not Given Documented by: Levothyroxine Sodium (Synthroid) 75 mcg PO DAILY@0600 [facility] Last Admin: 02/28/20 05:12 Dose: 75 mcg Documented by: Nutritional Formula (Lactose Free) (Ensure Enlive) 120 ml PO 4X/DAY [facility] Last Admin: 02/28/20 09:38 Dose: 120 ml Documented by: Potassium Chloride (K-Dur) 40 meq PO DAILYCM [facility] Last Admin: 02/28/20 09:38 Dose: 40 meq Documented by: Sodium Chloride () 10 - 40 ml IV UD PRN PRN Reason: SALINE FLUSH Last Admin: 02/28/20 02:12 Dose: 10 ml Documented by: Sodium Chloride () 10 - 40 ml IV UD PRN PRN Reason: SALINE FLUSH Tamsulosin HCl (Flomax) 0.4 mg PO DAILY@1730 [facility] Assessment/Plan ASSESSMENT L sided weakness and L facial droop MS changes--> now back to baseline -? dementia or mild cognitive impairment Diarrhea Hypokalemia NAGMA 2/2 Hyperchloremia CAD HTN HPL H/O SDH A-fib Bradycardia--> Pacer placement n(?SSS) Hypothyroidism Urinary Retention Hematuria PLAN -NOAC from Coumadin as pt has not had any documented therapeutic INR since 09/2019 -CT with atrophy but no acute stroke--> repeat in 2 weeks and f/u with neuro -ECHO reviewed--> EWF 65% and CRISELDA -d/c atenolol with diarrhea -CCB 120 BID as pt has had issues with other BB--> if HR not better consider Cardiology consultation in am -Hernandez and flomax with voiding trial tomorrow -suspect traumatic hernandez as cause for hematuria--> monitor -stool panel negative -will rissa Duncan--> mag is WNL -DNR CCA -PT/OT -? if pt has some mild cognitive impairment Inpatient E&M: 60462 Subs Hosp L3
[2020-02-28] MEDS: Tamsulosin HCl 0.4 MG Capsule PO (14:22)
[2020-02-28] MEDS: Atorvastatin Calcium 40 MG Tablet PO (21:07)
[2020-02-28] MEDS: Latanoprost 0.005% 1 Bottle 1 DRP EACH EYE (21:10)
[2020-02-29 00:55] VITALS: BP 163/103; PULSE 91; RESP 16; TEMP 36.7; O2SAT 93
[2020-02-29 03:00] VITALS: PULSE 95
[2020-02-29 04:54] VITALS: BP 119/90; BP 145/102; BP 153/104; PULSE 103; PULSE 120; PULSE 98; RESP 17; TEMP 36.7; O2SAT 98
[2020-02-29] MEDS: Levothyroxine 75 MCG Tablet PO (05:08)
[2020-02-29] MEDS: Acetaminophen 325 MG Tablet 650 MG PO (05:08)
[2020-02-29] MEDS: 0.9% Normal Saline 1,000 ML 100 ML IV (05:10)
[2020-02-29 07:00] VITALS: PULSE 105
[2020-02-29 08:46] VITALS: BP 135/94; PULSE 103; RESP 16; TEMP 36.6; O2SAT 98
[2020-02-29] MEDS: APIXABAN 2.5 MG TABLET PO (09:01)
[2020-02-29] MEDS: Atenolol 25 MG Tablet PO (09:02)
[2020-02-29 09:33] LABS: Anion Gap 9 (5-15); BUN 12 mg/dL (7-18); BUN/Creat Ratio 12.6 RATIO (10-20); Calcium,Total 7.8 mg/dL (8.5-10.1); Chloride 108 mmol/L (98-107); Creatinine, Serum 0.95 mg/dL (0.70-1.30); EST Glomerular Filtration Rate 80 mL/min (>60); Est Glom Filt Rate - Afr Amer 97 mL/min (>60); Estimated Creatinine Clearance 68.25 ml/min; Glucose 148 mg/dL (74-106); Potassium 3.1 mmol/L (3.5-5.1); Sodium Level 139 mmol/L (136-145)
--- NOTE | 2020-02-29 09:59 | DCINST_ITS ---
- Discharge Diagnoses Current Active Problems: Current Active and Chronic Problems (Last Reviewed 01/22/20 @ 14:57 by JESSEE Mckee) TIA (transient ischemic attack) (Acute) Subtherapeutic international normalized ratio (INR) (Acute) Atrial fibrillation with RVR (Acute) Fever (Acute) Hypokalemia (Acute) You will use the following diet at home:: Cardiac Your food should be the consistency of: Regular Your liquids should be the consistency of: Regular/Thin Discharge Activity: Return to Normal Activity Allergies/Adverse Reactions: Allergies hydrochlorothiazide Adverse Reaction (Intermediate, Verified 02/26/20 21:30) syncope Medications to take at Discharge levothyroxine 75 mcg capsule 75 mcg PO QDAY cap 11/07/17 Latanoprost 0.005% [Xalatan Opthalmic] 1 drp EACH EYE QHS 07/31/18 Apixaban [Eliquis] 2.5 mg PO BID #60 tab 02/29/20 Atorvastatin Calcium [Lipitor] 40 mg PO DAILY@2200 #30 tab 02/29/20 Diltiazem CD [Cardizem CD] 120 mg PO Q12 #60 cap 02/29/20 Potassium Chloride [K-Dur] 40 meq PO DAILYCM #60 tab 02/29/20 Tamsulosin HCl [Flomax] 0.4 mg PO DAILY@1730 #30 cap 02/29/20 The following prescriptions were given: Diltiazem CD [Cardizem CD] 120 mg PO Q12 #60 cap Transmission Status: Pending to [id number] Apixaban [Eliquis] 2.5 mg PO BID #60 tab Transmission Status: Pending to [facility][id number] Tamsulosin HCl [Flomax] 0.4 mg PO DAILY@1730 #30 cap Transmission Status: Pending to [facility][id number] Potassium Chloride [K-Dur] 40 meq PO DAILYCM #60 tab Transmission Status: Pending to [facility][id number] Atorvastatin Calcium [Lipitor] 40 mg PO DAILY@2200 #30 tab Transmission Status: Pending to [facility][id number] Primary Care Physician: Dariusz Gonzalez Chi, MD [Primary Care Provider] - Please follow up with your Primary Care Physician in: 1 week Test Results: Test results from this visit will be discussed in further detail at your follow- up appointment, if applicable. Please Follow Up With: Saloni Bowie PA When: 2 weeks Please Follow Up With: Garrick Mccoy MD When: 2 weeks Proposed Discharge Date: 02/29/20
--- NOTE | 2020-02-29 10:29 | CASEMGMT ---
SW completed a PHQ 9 with patient as he may have had a Stroke or TIA. He scored a 0 which indicates no depression. Erinn LAMBERT MSW
--- NOTE | 2020-02-29 10:42 | PCM.DC.SUM ---
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 Negative for hemorrhage, hematoma or demarcation of a new nonhemorrhagic infarct zone. Stable involutional changes. Status post prior right craniotomy. CT/CTA Head AND Neck W/ Contrast IMPRESSION: Bilateral distal common carotid artery calcific and soft plaque extending into the carotid bulb and the bilateral ECAs. This disease causes less than 20% stenosis. The vessels remain widely patent into the brain. Within the brain there is no aneurysm, stenosis, occlusion, or dissection. The patient has had a previous right craniotomy. Adjacent to the left frontal lobe there is an 8 mm dural based enhancing nodule consistent with a benign meningioma. Individualized dose optimization techniques were used for this CT. RAD/Chest 1 View IMPRESSION: Iliac pacemaker without acute cardiopulmonary disease or interval change. 2D TTE: Interpretation Summary Normal LV size. Left ventricular systolic function is normal. The estimated ejection fraction is 55 %. Mild (1+) tricuspid valve insufficiency. The left atrium is mildly enlarged. The right atrium is moderately enlarged. CT/Brain/Head without Contrast IMPRESSION: 1. Stable findings. No intracranial hemorrhage or acute intracranial disease. 2. White matter small vessel chronic ischemic change. 3. Generalized atrophy. Individualized dose optimization techniques were used for this CT. Consults: neuro - SOC Operations: None Procedures: 2-D Echocardiogram Summary of Care Provided: Hospital Course: The patient is a 84 year old M with pmhx of chronic afib tachy/rosa syndrome with pacaker, who presented to the ER with c/o altered mental status, left sided weakness, and left facial droop. The patient also had severe diarrhea for three days. He saw his PCP and was given IV fluids in the office prior to coming, but at home was still confused and not acting right so was brought to the ER. NIH was 4 however stroke team did not feel TPA was indicated. He has Afib and his INR was subtherapeutic. He also appeared dehydrated and hypokalemia felt to be 2/2 diarrhea, which with elevated WBCs and tachycardia was felt to be due to an acute viral gastroenteritis. He was admitted to PCU for stroke workup. He was given IV fluids, aspirin, statin, standard therapies. He continued to have multiple bouts of diarrhea until the 2nd to last day of admission. Enteric panel was neg. He could not have an MRI due to pacemaker, he had serial CTs which did not show stroke. SOC was consulted and felt that he had TIA. We changed him to eliquis as his INR remained subtherapeutic. He had some tachycardia while here and his atenolol was stopped (also concerned that this was causing diarrhea) and he was started on cardizem. Echo was obtained which was unimpressive as above. Brain CTs showed atrophy and he had fluctuant mentation and agitation while here especially at night so I suspect he has underlying dementia. He had urinary retention while here and had a hernandez placed and started on flomax. He had a voiding trial prior to DC. He will require on going therapy as he has generalized debility so he was discharged home with home health care. He also needs to use care as he does have a positional decline in his BP felt to be worse due to dehydration from diarrhea, however this will need conservative management as he requires medications for BP and heart rate control. He lives with his daughter who provides 24 hour care. He will need follow up with PCP in 1 week, cardiology and neurology in 2 weeks. This patient was seen by Everton Bajwa PA-C under the supervision of Dr. Hill. [] - Physical Exam Vitals/I&O's: Vital Signs Temp Pulse Resp BP Pulse Ox 97.8 F 103 H 16 135/94 H 98 02/29/20 08:46 02/29/20 08:46 02/29/20 08:46 02/29/20 08:46 02/29/20 08:46 Oxygen Delivery Method Room Air Weight: 180 lb 8.937 oz Body Mass Index (BMI) 23.1 Finger Stick Blood Glucose 115 Orthostatic Vital Signs Start: 02/27/20 04:10 Freq: q24h Status: Active Protocol: Activity Type Activity Date Activity User E-Sign Co-Sign Detail Recorded Client Recorded Date Recorded By Document 02/29/20 04:54 [facility] [id number] 02/29/20 05:04 [facility] 02/29/20 04:54 Orthostatic Vitals Standing -Blood Pressure (90/60-120/80) 119/90 H -Extremity Use Right Arm -Pulse Rate (60-100) 120 H Sitting -Blood Pressure (90/60-120/80) 145/102 H -Extremity Use Right Arm -Pulse Rate (60-100) 103 H Lying -Blood Pressure (90/60-120/80) 153/104 H -Extremity Use Right Arm -Pulse Rate (60-100) 98 Intake and Output for Last 24 Hours 02/27/20 02/28/20 02/29/20 23:59 23:59 23:59 Intake Total 3229.00 / 3229.00 2019 1560 / 1560 Output Total 450 / 450 3300 / 4100 1800 / 1800 Balance 2779.00 / 2779.00 -1280 / -2080 -240 / -240 General: Alert, Oriented x3, Cooperative HEENT: Atraumatic, PERRLA, EOMI, Normocephalic Neck: Supple, No JVD, Negative Carotid Bruits Lungs: Clear to auscultation, Normal air movement Cardiovascular: No murmurs, Irregular Rate Abdomen: Bowel Sounds Present, Soft, Non Tender Extremities: No edema, Capillary Refill Less than 3 Seconds Skin: No rashes, No breakdown Musculoskeletal: No Tenderness to Palpation of Joints or Extremities Neurological: Cranial nerves II-XII grossly intact Psych/Mental Status: Normal Affect, Appropriate, Alert and oriented to time, place, person, mood and affect Microbiology Past 72 Hours 02/26/20 21:45 Blood Culture (Wb) - Anticubital Left Blood Culture - Preliminary 02/26/20 21:55 Blood Culture (Wb) - Right Hand Blood Culture - Preliminary 02/28/20 02:20 Stool Enteric Bacteriology - Final Laboratory Results 02/29/20 09:04: Sodium 139, Potassium 3.1 L, Chloride 108 H, Carbon Dioxide 22.0, Anion Gap 9, BUN 12, Creatinine 0.95, Estim Creat Clear Calc 68.25, Est GFR (MDRD) Af Amer 97, Est GFR (MDRD) Non-Af 80, BUN/Creatinine Ratio 12.6, Glucose 148 H, Calcium 7.8 L Current Medications Acetaminophen (Tylenol) 650 mg PO Q4H PRN PRN PRN Reason: Headache/Temp>99.6F Last Admin: 02/29/20 05:08 Dose: 650 mg Documented by: Acetaminophen (Tylenol Liquid) 650 mg NG Q4H PRN PRN PRN Reason: Headache/Temp>99F Apixaban (Eliquis) 2.5 mg PO BID [facility] Last Admin: 02/29/20 09:01 Dose: 2.5 mg Documented by: Atorvastatin Calcium (Lipitor) 40 mg PO DAILY@2200 [facility] Last Admin: 02/28/20 21:07 Dose: 40 mg Documented by: Diltiazem HCl (Cardizem Cd) 120 mg PO Q12 [facility] Sodium Chloride () 250 mls @ 15 mls/hr IV .[id number] PRN PRN Reason: Saline Flush Sodium Chloride () 250 mls @ 15 mls/hr IV .[id number] PRN PRN Reason: Additional IVPB Infusion Latanoprost (Xalatan Opthalmic) 1 drop EACH EYE QHS [facility] Last Admin: 02/28/20 21:10 Dose: 1 drop Documented by: Levothyroxine Sodium (Synthroid) 75 mcg PO DAILY@0600 [facility] Last Admin: 02/29/20 05:08 Dose: 75 mcg Documented by: Nutritional Formula (Lactose Free) (Ensure Enlive) 120 ml PO 4X/DAY [facility] Last Admin: 02/29/20 09:01 Dose: 120 ml Documented by: Potassium Chloride (K-Dur) 40 meq PO DAILYCM [facility] Last Admin: 02/29/20 09:01 Dose: 40 meq Documented by: Sodium Chloride () 10 - 40 ml IV UD PRN PRN Reason: SALINE FLUSH Last Admin: 02/28/20 02:12 Dose: 10 ml Documented by: Sodium Chloride () 10 - 40 ml IV UD PRN PRN Reason: SALINE FLUSH Tamsulosin HCl (Flomax) 0.4 mg PO DAILY@1730 [facility] Last Admin: 02/28/20 14:22 Dose: 0.4 mg Documented by: Discharge Diet: Low fat/ Low Cholesterol, 2000 mg Sodium Diet Discharge Activity: Return to Normal Activity Home Medications: Medications to take at Discharge levothyroxine 75 mcg capsule 75 mcg PO DAILY #0 11/07/17 Latanoprost 0.005% [Xalatan Opthalmic] 1 drp EACH EYE QHS 07/31/18 Apixaban [Eliquis] 2.5 mg PO BID #60 tab 02/29/20 Atorvastatin Calcium [Lipitor] 40 mg PO DAILY@2200 #30 tab 02/29/20 Diltiazem CD [Cardizem CD] 120 mg PO DINNER #30 cap 02/29/20 Diltiazem CD [Cardizem CD] 180 mg PO DAILY #30 cap 02/29/20 Potassium Chloride [K-Dur] 40 meq PO DAILYCM #60 tab 02/29/20 Tamsulosin HCl [Flomax] 0.4 mg PO DAILY@1730 #30 cap 02/29/20 Following Prescrptions Were Given to Patient: Diltiazem CD [Cardizem CD] 120 mg PO DINNER #30 cap Diltiazem CD [Cardizem CD] 180 mg PO DAILY #30 cap Transmission Status: Received by [id number] Apixaban [Eliquis] 2.5 mg PO BID #60 tab Transmission Status: Received by [facility][id number] Tamsulosin HCl [Flomax] 0.4 mg PO DAILY@1730 #30 cap Transmission Status: Received by [facility][id number] Potassium Chloride [K-Dur] 40 meq PO DAILYCM #60 tab Transmission Status: Received by [facility][id number] Atorvastatin Calcium [Lipitor] 40 mg PO DAILY@2200 #30 tab Transmission Status: Received by [id number] Primary Care Physician: Dariusz Gonzalez Chi, MD [Primary Care Provider] - Please follow up with your Primary Care Physician in: 1 week Please Follow Up With: Saloni Bowie PA When: 2 weeks Please Follow Up With: Garrick Mccoy MD When: 2 weeks Disposition: Home with Home Health Minutes spent on discharge:: 35 Patient Condition:: Stable Medical Necessity - Tobacco Use Smoking Status: Never smoker Tobacco Use: Non-smoker Meaningful Use Info Meaningful Use Diagnoses (Choose all that apply): None applicable <SergioPatrice - Last Filed: 02/29/20 16:00> Discharge Date and Diagnosis - Secondary Discharge Diagnosis Chronic Problems: Chronic Problems (Last Reviewed 01/22/20 @ 14:57 by JESSEE Mckee) Cardiomyopathy, dilated, 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 I have independently interviewed and examined the patient and reviewed pertinent history, examination findings, laboratory and plan of management. I have reviewed the note and agree with the documented findings with the few additional points. In brief, patient is 84-year-old gentleman with history of chronic A. fib, sick sinus syndrome status post pacemaker was admitted with altered mental status Left-sided weakness and facial droop which has resolved. Patient also had severe diarrhea for about 3 days prior to admission and was given IV fluids by PCP. INR was subtherapeutic. Stroke alert was called in ER but was felt TPA was not indicated. Patient was further admitted in PCU for stroke work-up. Serial CT did not show stroke. SOC was consulted and clinical diagnosis was TIA. Patient in A. fib with RVR and atenolol was discontinued and Cardizem was started. Discussed with the tape deck installer and Cardizem CD was increased to 180 mg in a.m. and 120 mg p.m. 2D echo was done and reported EF 55% with normal LV systolic function. Mild TR. Left atrium mildly enlarged with history of chronic heart failure with preserved EF/diastolic heart failure. Patient also had fluctuant mood with agitation and inattention with ranges suspicion of mild dementia. Patient also retention for which Hernandez catheter was placed and patient started on Flomax. Hernandez catheter discontinued. Discharge medication reconciliation done. Discharge follow-up instructions completed. Discharge process discussed with the patient and all questions were answered to patient's satisfaction. Patient was advised to follow-up with PCP and might need referral to urologist if urinary retention does not get better on Flomax. Total time spent, exact 35 minutes on discharge meds reconciliation, examination, coordination of care with nurses and ancillary staff, review of imaging and blood test and discussion with the patient on follow-up instructions I have discussed my assessment with Everton HOOKS and orders have been reviewed. [] Objective: Seen and examined. Patient heart rate is in low 100s. Blood pressure is good. Discussed with the tape deck installer. Physical exam findings: General: Alert, Oriented x3, Cooperative HEENT: Atraumatic, PERRLA, EOMI, Normocephalic Oral: No Gingival or Mucosal Lesions/ Ulcerations Neck: Supple, No JVD, Negative Carotid Bruits Lungs: Air entry diminished in bilateral lung bases. No crepitation/rhonchi Cardiovascular: Regular Rhythm, Normal S1, Normal S2, No murmurs, architectural practice manager shows sinus rhythm with PVC. Mild tachycardia, heart rate 104. Abdomen: Bowel Sounds Present, Soft, Non Tender, Non-Distended : No renal angle tenderness. No suprapubic tenderness. Extremities: No edema, Capillary Refill Less than 3 Seconds Skin: No rashes, No breakdown Musculoskeletal: No Tenderness to Palpation of Joints or Extremities Neurological: Cranial nerves II-XII grossly intact, Deep Tendon Reflexes 2+/4 and Symmetrical, Neuro grossly intact, muscle strength 5/5 at major joints Psych/Mental Status: Normal Affect, Appropriate - Physical Exam Vitals/I&O's: Vital Signs Temp Pulse Resp BP Pulse Ox 97.8 F 103 H 16 135/94 H 98 02/29/20 08:46 02/29/20 08:46 02/29/20 08:46 02/29/20 08:46 02/29/20 08:46 Oxygen Delivery Method Room Air Weight: 180 lb 8.937 oz Body Mass Index (BMI) 23.1 Finger Stick Blood Glucose 115 Orthostatic Vital Signs Start: 02/27/20 04:10 Freq: q24h Status: Active Protocol: Activity Type Activity Date Activity User E-Sign Co-Sign Detail Recorded Client Recorded Date Recorded By Document 02/29/20 04:54 [facility] [id number] 02/29/20 05:04 [facility] 02/29/20 04:54 Orthostatic Vitals Standing -Blood Pressure (90/60-120/80) 119/90 H -Extremity Use Right Arm -Pulse Rate (60-100) 120 H Sitting -Blood Pressure (90/60-120/80) 145/102 H -Extremity Use Right Arm -Pulse Rate (60-100) 103 H Lying -Blood Pressure (90/60-120/80) 153/104 H -Extremity Use Right Arm -Pulse Rate (60-100) 98 Intake and Output for Last 24 Hours 02/27/20 02/28/20 02/29/20 23:59 23:59 23:59 Intake Total 3229.00 / 3229.00 2019 1560 / 1560 Output Total 450 / 450 3300 / 4100 2325 / 2325 Balance 2779.00 / 2779.00 -1280 / -2080 -765 / -765 Microbiology Past 72 Hours 02/26/20 21:45 Blood Culture (Wb) - Anticubital Left Blood Culture - Preliminary 02/26/20 21:55 Blood Culture (Wb) - Right Hand Blood Culture - Preliminary 02/28/20 02:20 Stool Enteric Bacteriology - Final Laboratory Results 02/29/20 09:04: Sodium 139, Potassium 3.1 L, Chloride 108 H, Carbon Dioxide 22.0, Anion Gap 9, BUN 12, Creatinine 0.95, Estim Creat Clear Calc 68.25, Est GFR (MDRD) Af Amer 97, Est GFR (MDRD) Non-Af 80, BUN/Creatinine Ratio 12.6, Glucose 148 H, Calcium 7.8 L Inpatient E&M: [id number] Disch Hosp
[2020-02-29] MEDS: dilTIAZem CD 120 MG Capsule PO (10:52)
--- NOTE | 2020-02-29 10:57 | CASEMGMT ---
Addendum entered by Karina Gee 02/29/20 12:58: Original OP script to pt's daughter at this time. Pt is in the bathoom at this time and daughter voices no further concerns/needs at this time. Nirmala HARRIS CM Addendum entered by Karina Gee 02/29/20 11:18: Call back from Annabella at [email or web address] registration and she states that pt's last OP therapy appt was 02/04/2020 and he was not scheduled for any more. Annabella states that pt will need a new order for OP therapy and new order to be faxed to [email or web address] once signed. Pt/daughter updated and voice understanding at this time. Nirmala HARRIS CM Original Note: THis RN CM to room to speak with pt/daughter regarding discharge plan at this time. Therapy states no further therapy is needed at this time. Per pt, he is current with OP therapy at [facility] but not sure how many sessions left and daughter states 'He may need an extension.' Pt/daughter do not feel the need for HHC at this time and would like to continue OP. Message left with [facility] therapy to call this RN CM back to make sure pt is still current with OP therapy at this time. Pt/daughter aware that if they change their minds once home and feel that pt need HHC to then call his PCP in regards to same, voice understanding. Pt/daughter state no further concerns/needs at this time. Nirmala HARRIS CM
--- NOTE | 2020-02-29 12:47 | PHA.DC.MC ---
Pharmacy Service has performed discharge medication reconciliation and counseling for this patient. The patient was counseled on the following discharge medications and changes in medications for homegoing were reviewed. 1. ELIQUIS 2. DILTIAZEM 3. K-DUR 4. FLOMAX The Reason for Use, instructions for use, and potential side effects were reviewed for all new medications. The patient's questions regarding all of their medications were answered. The patient / daughter was able to verbally demonstrate an understanding of their discharge medications. Home Medications levothyroxine 75 mcg capsule 75 mcg PO DAILY #0 11/07/17 Latanoprost 0.005% [Xalatan Opthalmic] 1 drp EACH EYE QHS 07/31/18 Apixaban [Eliquis] 2.5 mg PO BID #60 tab 02/29/20 Atorvastatin Calcium [Lipitor] 40 mg PO DAILY@2200 #30 tab 02/29/20 Diltiazem CD [Cardizem CD] 120 mg PO DINNER #30 cap 02/29/20 Diltiazem CD [Cardizem CD] 180 mg PO DAILY #30 cap 02/29/20 Potassium Chloride [K-Dur] 40 meq PO DAILYCM #60 tab 02/29/20 Tamsulosin HCl [Flomax] 0.4 mg PO DAILY@1730 #30 cap 02/29/20 The patient's discharge medication list was reviewed for discrepancies and discrepancies were resolved.
--- NOTE | 2020-03-01 15:16 | CASEMGMT ---
STEVEN THOMPSON Discharge F/U Phone Call LACE: 14 Strata: 4 Discharge date: 02/29/2020 Call date: 03/01/2020 Call time: 1535 Admission dx: TIA Pt states has been 'doing fine' since discharge and states has been 'getting around good' in the house. Pt states no questions regarding discharge instructions/medications but states that his daughter 'figured all that out.' Pt states has f/u appt's scheduled and plans to keep. Pt states only concern with [facility] at this time is the food and he states 'they must have changed it and it's terrible.' Pt states no other concerns at this time. Pt voices no further questions/concerns/needs at this time. [place] STEVEN THOMPSON
== END 2020-02-29 13:52 | disposition home or self-care (01) | DRG 69 ==
LOC: ED 22:46 → PCU 22:51
PROVIDERS: Physician Assistant; Admitting Provider Internal Medicine; Emergency Provider Emergency Medicine; PCP Family Medicine Geriatric Medicine; Visit Provider Internal Medicine
DX: G45.9 Transient cerebral ischemic attack, unspecified (principal); G93.41 Metabolic encephalopathy; I42.0 Dilated cardiomyopathy; I47.1 Supraventricular tachycardia; I48.11 Longstanding persistent atrial fibrillation; E87.2 Acidosis; I50.32 Chronic diastolic (congestive) heart failure; I95.9 Hypotension, unspecified; R79.1 Abnormal coagulation profile; E87.6 Hypokalemia; Z95.5 Presence of coronary angioplasty implant and graft; A08.4 Viral intestinal infection, unspecified; F03.90 Unspecified dementia, unspecified severity, without behavioral disturbance, psychotic disturbance, mood disturbance, and anxiety; E03.9 Hypothyroidism, unspecified; E78.5 Hyperlipidemia, unspecified; I25.10 Atherosclerotic heart disease of native coronary artery without angina pectoris; Z66 Do not resuscitate; R33.9 Retention of urine, unspecified; R31.9 Hematuria, unspecified; I45.10 Unspecified right bundle-branch block; Z79.01 Long term (current) use of anticoagulants; Z79.899 Other long term (current) drug therapy; M19.90 Unspecified osteoarthritis, unspecified site; Z87.19 Personal history of other diseases of the digestive system; H40.9 Unspecified glaucoma; Z87.891 Personal history of nicotine dependence; Z86.79 Personal history of other diseases of the circulatory system; E87.8 Other disorders of electrolyte and fluid balance, not elsewhere classified; Z95.0 Presence of cardiac pacemaker; E83.42 Hypomagnesemia; E86.0 Dehydration; I11.0 Hypertensive heart disease with heart failure; I49.5 Sick sinus syndrome
CPT/HCPCS: 36415; 70450; 70496; 70498; 71045; 74019; 80048; 80061; 80076; 81001; 83036; 83605; 83735; 84100; 84443; 84484; 85025; 85610; 85730; 87040; 87506; 87635; 92523; 92526; 92610; 93005; 93306; 94762; 97110; 97116; 97162; 97166; 97530; 97803; 99285; 99406; G2023; J7030; Q9967; A4216; U0003

== ENCOUNTER → 2020-03-02 14:23 | Outpatient (CLI) | payer MEDICARE, OTHER, SELFPAY ==
[2020-02-27 01:08] VITALS: BMI 23.1
[2020-03-02 16:42] LABS: Anion Gap 6 (5-15); BUN 11 mg/dL (7-18); BUN/Creat Ratio 9.3 RATIO (10-20); Calcium,Total 8.8 mg/dL (8.5-10.1); Chloride 104 mmol/L (98-107); Creatinine, Serum 1.18 mg/dL (0.70-1.30); EST Glomerular Filtration Rate 63 mL/min (>60); Est Glom Filt Rate - Afr Amer 76 mL/min (>60); Glucose 105 mg/dL (74-106); Potassium 3.8 mmol/L (3.5-5.1); Sodium Level 137 mmol/L (136-145)
== END ==
PROVIDERS: PCP Family Medicine Geriatric Medicine; Visit Provider Family Medicine Geriatric Medicine
DX: E87.6 Hypokalemia (principal); N39.0 Urinary tract infection, site not specified
CPT/HCPCS: 36415; 80048; 87086

== ENCOUNTER 2020-03-14 11:30 | Outpatient (RCR) | payer MEDICARE, OTHER, SELFPAY ==
[2020-02-27 01:08] VITALS: BMI 23.1
--- NOTE | 2020-03-08 12:06 | HP.PTEVAL ---
Patient's Visit Information JULIAN JACOB is a 84 year old M referred to Physical Therapy by JESSEE Campos with a diagnosis of TIA. Date of Evaluation: 03/08/20 Physical Therapist: Russel Garber, AHSANT, OCS, CSCS - Visit Plan Frequency: 2x /Week Duration: 2 Months Plan: 2x/week for 4-8 weeks to work on gait with step length adn FW weight shift and exercises that encourage forefoot WB. - Subjective Needs ex. Has been walking at home and doing heel raises and squats every other day or so. The typical sink exercises. Had an eye surgery that kep him form completing last therapy. While he was gone he had an increase in unsteadiness, not spinning. Time has gone by. Using wh walker all the time, has a couple of them. No falls lately, not in quite a while. Not looking at sheet at home. Spends day with TV and computer. Back to office to catch up on computer work this afternoon. But is mostly retired. Lives with dtr and grandson dtr is with him all day. Has steps at home but does not need to use them. One step to enter which he grabs doorframe for using arms assist. Dresses and bathes and showers on own. Fears walking in strange places as he does not use walker at home in comfortable setting. - Objective Walks with wh walker with brakes way out in front of him and leaning FW and looking down. Steps are very short and choppy, neuropathic gait pattern. Avoids FW weight in trasnfers so uses UE but can do so I. Steps require UE due to lack of FW weight shift and keeps weight posterior. Without AD tends to take very short steps and worse so wehn people pass by him or he starts to talk. Safe with balance but almost dysfunctional with gait. reflexes patella adn achilles 2/3 B. Sensation in feet diminished to gross light touch. Strength 4+/5 in LE knees and ankles. 4 in hips. Tends to have short movements when asked to move UE and LE vs full ROM. - Balance Scores Functional Gait Assessment Score: 19 % Disability: 36.6700 CATSIB Score (Max score 120 seconds): 65 - Goals Goal 1:: Walk with at least inch clearance between plant and step foot without cues 100 feet. Goal Time Frame: 4-6 Weeks Goal 2:: I approp HEP to maximize FW weight shift adn minimize future problems Goal Time Frame: 4-6 Weeks Goal 3:: FGA to max safety. Goal Time Frame: 6-8 Weeks - Rehabilitation Potential Physical Therapy Diagnosis: Neuroathy and lack of FW weight shift makes mobility challenging safety dumont. Rehabilitation Potential: Questionable - Anticipated Interventions Patient/Client Instruction: Educate patient on: Condition, Plan of Care For the Purpose of:: To improve gait and locomotor functions Therapeutic Exercise to Include: Gait and locomotor training, Neuromotor development For the Purpose of:: To increase tolerance to activity/condition/position, To improve gait and locomotor functions Thank you for the opportunity to evaluate your patient. For Medicare and Medicare HMO plans, please review the plan of care and approve it. It will need to be FAXED BACK to us at [phone] for Medicare purposes. For Medicare only, by signing this I certify the plan of care. Please let me know if there are questions or concerns regarding this plan of care. Physician Signature: Date:
--- NOTE | 2020-05-10 10:06 | HP.PT.NRP ---
JULIAN JACOB was seen in my office for initial evaluation on 03/08/20. The following Plan of Care was established for this patient: Initial Frequency: 2x /Week Initial Duration: 2 Months Patient/Client Instruction: Educate patient on: Condition, Plan of Care For the Purpose of:: To improve gait and locomotor functions Therapeutic Exercise to Include: Gait and locomotor training, Neuromotor development For the Purpose of:: To increase tolerance to activity/condition/position, To improve gait and locomotor functions This patient was last seen in our office 03/14/20. Pertinent comments regarding their Physical therapy will appear below: Pt seen 3 visits of POC. Was taken by squad to hospital shortly after last visit and has neglected to attend any visits since. He has other medical issues being addressed and I will discontinue PT until appropriately reordered. At this point I will be discontinuing this patient from physical therapy. I would be happy to see this patient again in the future if found appropriate by the physician. Thank you! Russel Garber, DPT, OCS, CSCS
== END 2020-03-14 19:00 | disposition home or self-care (01) ==
LOC: PT 11:30
PROVIDERS: PCP Family Medicine Geriatric Medicine; Referring Provider Family Medicine Geriatric Medicine; Visit Provider Family Medicine Geriatric Medicine
DX: Z86.73 Personal history of transient ischemic attack (TIA), and cerebral infarction without residual deficits (principal)
CPT/HCPCS: 97110; 97162

== ENCOUNTER 2020-03-14 13:01 | Observation (INO) | payer MEDICARE, OTHER, SELFPAY ==
[2020-02-27 01:08] VITALS: BMI 23.1
[2020-03-14] VITALS (8 sets, daily range): BP systolic 91–150; BP diastolic 71–99; PULSE 70–99; RESP 14–20; TEMP 36.3–36.7; O2SAT 95–99; BMI 24.3; BMI 22.8; BMI 80.8
--- NOTE | 2020-03-14 13:08 | EKG12_ITS ---
Test Reason : SYNCOPE Blood Pressure : / mmHG Vent. Rate : 082 BPM Atrial Rate : 093 BPM P-R Int : 000 ms QRS Dur : 088 ms QT Int : 424 ms P-R-T Axes : 000 017 -05 degrees QTc Int : 495 ms Atrial fibrillation with occasional ventricular-paced complexes Prolonged QT Abnormal ECG Confirmed by KRYSTLE ALVARADO, CHRISTINA ([id number]), film or videotape editor STEVE REHMAN ([id number]) on 03/16/2020 12:35:33 PM Referred By: BANDAR Confirmed By:CHRISTINA DALTON MD
--- NOTE | 2020-03-14 13:15 | ED.DCSUM_ITS ---
History of Present Illness Chief Complaint: Syncope Informant: Patient, Family Narrative: This is an 84-year-old male presenting for an episode of syncope. He and his daughter state that he was doing his daily exercise for gait stability prior to the event. Afterwards he felt tired. She states they sat on a bench for several minutes. He did not seem to be recovering. She went to get help to get him up on his walker and when she came back he was slumped over. At this point the people that were helping her checked his pulse and did not feel it and started bystander CPR. Daughter estimates was about 3 minutes of CPR. On arrival to the ED he is alert and awake. He is answering questions. She states that he did not hit his head because they laid him to the ground. He is on Eliquis. Patient has had episodes of orthostatic hypotension recently. He was initially on metoprolol which was later changed to atenolol. Now he is on Cardizem. She states that he was recently started on midodrine as well. Past Medical History - Allergies and Home Meds Allergies/Adverse Reactions: Allergies hydrochlorothiazide Adverse Reaction (Intermediate, Verified 03/14/20 13:03) syncope Prior records reviewed: Yes Surgical History: cataract, herniorrhaphy, pacemaker implantation, total knee arthroplasty, - - Neurosurgery for traumatic intracranial bleed 10 years ago or more Smoking Status: Former smoker Alcohol: None Drugs: None - Family History Maternal Family History: Family History (Last Reviewed 01/22/20 @ 14:57 by JESSEE Mckee) Father CAD (coronary artery disease) Myocardial infarction Sudden cardiac Mother No problems noted. Uncle CAD (coronary artery disease) Sudden cardiac Myocardial infarction Other Heart disease Family History: Reports: No pertinent history Paternal Family History: Family History (Last Reviewed 01/22/20 @ 14:57 by JESSEE Mckee) Father CAD (coronary artery disease) Myocardial infarction Sudden cardiac Mother No problems noted. Uncle CAD (coronary artery disease) Sudden cardiac Myocardial infarction Other Heart disease Family History: Reports: - - father had mi at age 69 Review of Systems General: Denies: Chills, Fever, Sweats Eyes: Denies: Visual changes - bilaterally, Diplopia ENT: Denies: Rhinorrhea, Sore throat Cardiovascular: Reports: - - Orthostatic hypotension, syncope. Denies: Chest pain, Palpitations Respiratory: Denies: Dyspnea, Cough, Dyspnea on exertion Gastrointestinal: Denies: Abdominal pain, Nausea, Vomiting, Diarrhea, Melena, Hematochezia Genitourinary: Denies: Dysuria, Hematuria, Frequency Musculoskeletal: Denies: Back pain, Extremity Pain Skin: Denies: Rash, Wounds Neurological: Denies: Headache, Weakness, Numbness Physical Exam Vital Signs/Narrative: Vital Signs Temp Pulse Resp BP Pulse Ox 03/14/20 13:03 97.4 F L 70 18 136/97 H 99 Inital Vital Signs reviewed: Yes General: Well nourished, Well developed, No Acute Distress Head: Normocephalic, Atraumatic Eyes: Perrl. Negative for: Pale conjunctiva ENT: Moist mucous membranes Cardiovascular: Regular rate, Irregular Abdomen: Soft Extremities: Nontender, No edema Skin: Normal color Neurological: Alert, Oriented x3, Cranial nerves II-XII grossly intact Psychological: Normal affect Diagnostic/Tx/Re-eval Clinical Impression(s) from Imaging Studies Chest X-Ray 03/14/20 13:25 IMPRESSION: No acute abnormality is seen. Electronically Signed: Allan Diego, at 13:45 EDT , Service support , Laboratory Data 03/14/20 03/14/20 12:10 12:10 WBC 10.8 RBC 5.26 Hgb 15.8 Hct 46.6 MCV 88.6 MCH 29.5 MCHC 33.5 RDW Std Deviation 47.8 H RDW Coeff of Carolyn 14.9 H Plt Count 416 MPV 10.3 Immature Gran % (Auto) 1.200 H Neut % (Auto) 60.4 Lymph % (Auto) 28.8 [place] % (Auto) 6.6 Eos % (Auto) 2.2 Baso % (Auto) 0.8 Absolute Neuts (auto) 5.2 Absolute Lymphs (auto) 2.48 Nucleated RBC % 0 Sodium 138 Potassium 4.1 Chloride 106 Carbon Dioxide 24.0 Anion Gap 8 BUN 22 H Creatinine 1.39 H Estim Creat Clear Calc 46.82 Est GFR (MDRD) Af Amer 63 Est GFR (MDRD) Non-Af 52 L BUN/Creatinine Ratio 15.8 Glucose 114 H Calcium 8.8 Magnesium 2.2 Troponin I < 0.015 - Rhythm Strip Rhythm Strip: A-fib Rate: 82 - Medical Decision Making Patient presented after syncopal episode and bystander CPR after presumed loss of pulses estimated about 3 minutes. On arrival to the ED he is awake and alert. He does not recall the event. He does have chest discomfort from the CPR. He does not recall having any chest pain prior. It does appear that he has had difficulties with syncope and orthostatic hypotension. His blood work is unremarkable. His troponin is negative. His EKG shows A. fib with a rate of 82. There is no ST elevation or depression. He is orthostatic positive in the emergency room and was given IV fluids. Chest x-ray is negative. Given the patient had a syncopal event and bystander CPR I felt it was necessary to admit the patient to the hospital for observation. He was amenable to this plan. Impression: 1. Syncope 2. Orthostatic hypotension 3. Status post bystander CPR ED Disposition - Plan for ED Patient:
--- NOTE | 2020-03-14 13:25 | RAD_ITS ---
STUDY: X-RAY CHEST REASON FOR EXAM: Male, 84 years old. SYNCOPAL EPISODES. TECHNIQUE: Single AP portable view of the chest. COMPARISON: Comparison is made with prior study dated 02-26-20. FINDINGS: EKG electrodes are seen. The lungs are clear and expanded. There is no demonstrated pleural abnormality. Normal size heart. A left-sided unipolar pacemaker is seen. Normal mediastinum and tapan. Normal visualized pulmonary arteries. There is atherosclerotic calcification of the aortic arch with tortuosity. There are diffuse degenerative changes of the visualized thoracic spine. Normal visualized ribs, clavicles, and shoulders. There is no demonstrated abnormality of the visualized soft tissue structures of the upper abdomen. RAD/Chest 1 View (Portable) IMPRESSION: No acute abnormality is seen. Electronically Signed: Allan Cortez, at 13:45 EDT , Service support ,
[2020-03-14 13:39] LABS: Absolute Lymphocyte Count 2.48 X10^3/uL (0.83-4.51); Absolute Neutrophil Count 5.2 X10^3/uL (2.0-7.7); Basophil# 0.07 X10^3/uL; Basophil% 0.8 % (0-1); Eosinophil# 0.19 X10^3/uL; Eosinophils% 2.2 % (0-5); Lymphocyte # 2.48 X10^3/ul (4.0); Lymphocyte % 28.8 % (19-41); Mean Corp Hgb Conc 33.5 g/dL (32-36); Mean Corpuscular Hgb 29.5 pg (27.0-32.0); Mean Platelet Vol. 10.3 fl (6.2-12.0); Monocyte# 0.57 X10^3/uL; Monocyte% 6.6 % (0-10); NRBC Flagged by Analyzer 0 % (0-5); Neutrophil # 5.21 X10^3/uL (2.7-7.7); Neutrophil % 60.4 % (47-70); RBC Distribution Width CV 14.9 % (11.6-14.6); RBC Distribution Width SD 47.8 fl (35.1-43.9)
[2020-03-14 13:40] LABS: Anion Gap 8 (5-15); BUN 22 mg/dL (7-18); BUN/Creat Ratio 15.8 RATIO (10-20); Calcium,Total 8.8 mg/dL (8.5-10.1); Chloride 106 mmol/L (98-107); Creatinine, Serum 1.39 mg/dL (0.70-1.30); EST Glomerular Filtration Rate 52 mL/min (>60); Est Glom Filt Rate - Afr Amer 63 mL/min (>60); Estimated Creatinine Clearance 46.82 ml/min; Glucose 114 mg/dL (74-106); Magnesium 2.2 mg/dL (1.6-2.6); Potassium 4.1 mmol/L (3.5-5.1); Sodium Level 138 mmol/L (136-145)
[2020-03-14 13:56] LABS: Hemoglobin 15.8 g/dL (13.0-16.5); Red Blood Count 5.26 M/mm3 (4.6-6.2)
[2020-03-14 13:57] LABS: Hematocrit 46.6 % (40-54); Mean Corpuscular Volume 88.6 fL (80-94); White Blood Count 10.8 K/mm3 (4.4-11.0)
[2020-03-14 13:58] LABS: Differential Indicated SCAN CRITERIA MET; Platelet Count 416 K/mm3 (150-450)
[2020-03-14] MEDS: 0.9% Normal Saline 500 ML IV.SOLN. IV (14:57)
--- NOTE | 2020-03-14 16:07 | PCM.HP.STD ---
Problem List (1) Syncope Status: Acute (2) Chronic a-fib Status: Chronic (3) TIA (transient ischemic attack) Status: Acute (4) Cardiomyopathy, dilated, nonischemic Status: Chronic (5) Presence of permanent cardiac pacemaker Status: Chronic Comment: Permanent Pacemaker insertion, single chamber 10/17/15, [employer] (6) Essential (primary) hypertension Status: Chronic (7) Hyperlipidemia Status: Chronic Qualifiers: Hyperlipidemia type: pure hypercholesterolemia Qualified Code(s): E78.00 - Pure hypercholesterolemia, unspecified; E78.0 - Pure hypercholesterolemia History of Present Illness Date of Admission: 03/14/20 Chief Complaint: syncope The patient is a 84 year old M with pmhx of chronic afib, pacemaker for tachy/rosa syndrome, recent admission for TIA, suspected dementia, dilated cardiomyopathy, HTN, HLD who presented to the ER with syncope. He has been having lightheadedness and dizziness with + orthostatic hypotension since his last admission. At the last admission atenolol was changed to cardizem with concerns for chronic diarrhea as a side effect. This week he was started on midodrine by Dr. Gonzalez. He has continued to be lightheaded especially when up and better when laying down. He has been doing outpatient therapy for balance problems. He was at therapy today and when his daughter went to pick him up he became weak and had to sit down. Soon after he slumped over in his seat unconscious. Daughter states his eyes rolled back in his head and his breathing did not seem right. EMS was called and on arrival they laid him flat, started chest compressions, soon after he woke up and he was back to his normal self. He did lose control of his bladder. No muscle spasms. No tongue biting. In the ER he feels back to his normal self altho his chest is somewhat sore from compressions. He had + orthostatic vitals in the ER and his labs are consistent with dehydration. The patient took all meds this AM EXCEPT Midodrine. 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) [id number] LAD 09/21/2004 Longstanding persistent atrial fibrillation (Chronic) 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) Permanent Pacemaker insertion, single chamber 10/17/15, [employer] Essential (primary) hypertension (Chronic) Hyperlipidemia (Chronic) Bundle branch block, right (Chronic) USP current use of anticoagulant (Chronic) Medical History: Medical History (Last Reviewed 01/22/20 @ 14:57 by JESSEE Mckee) Cardiomyopathy, dilated, nonischemic (Chronic) I42.0 Atherosclerotic heart disease of [place] coronary artery without angina pectoris (Chronic) I25.10 FGM-UVA-Csah LAD 09/21/2004 Longstanding persistent atrial fibrillation (Chronic) I48.11 Essential (primary) hypertension (Chronic) I10 Hyperlipidemia (Chronic) E78.5 Bundle branch block, right (Chronic) I45.10 Carotid bruit R09.89 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 Glaucoma H40.9 History of 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 Onset Date: 09/13/08 Z86.79 09/13/2008 Hypothyroidism E03.9 Osteoarthritis M19.90 Premature ventricular contractions I49.3 History of syncope Z87.898 Lower GI bleed K92.2 Left bundle branch block (Ruled-out) I44.7 Supraventricular tachycardia (Ruled-out) I47.1 Edema R60.9 Memory loss R41.3 Shortness of breath R06.02 Syncope and collapse R55 Allergies hydrochlorothiazide Adverse Reaction (Intermediate, Verified 03/14/20 13:03) syncope Home Medications: Ambulatory Orders Medication Instructions Recorded Latanoprost 0.005% [Xalatan 1 drp EACH EYE QHS 07/31/18 Opthalmic] Acetaminophen [Tylenol Extra 500 mg PO DAILY PRN PRN 03/14/20 Strength] Apixaban [Eliquis] 2.5 mg PO BID 03/14/20 Atorvastatin Calcium [Lipitor] 40 mg PO DAILY@2200 03/14/20 Diltiazem CD [Cardizem CD] 120 mg PO DINNER 03/14/20 Diltiazem CD [Cardizem CD] 180 mg PO DAILY 03/14/20 Levothyroxine Sodium [Synthroid] 75 mcg PO DAILY 03/14/20 Potassium Chloride [K-Dur] 40 meq PO DAILYCM 07/27/20 Tamsulosin HCl [Flomax] 0.4 mg PO DAILY@1730 03/14/20 Surgical History: Surgical History (Last Reviewed 01/22/20 @ 14:57 by JESSEE Mckee) History of coronary artery stent placement (Resolved) Onset Date: 09/21/04 Z95.5 [id number] LAD 09/21/2004 Presence of permanent cardiac pacemaker (Chronic) Onset Date: 10/17/15 Z95.0 Permanent Pacemaker insertion, single chamber 10/17/15, [employer] History of bilateral cataract extraction Z98.41, Z98.42 History of bilateral knee replacement Z96.653 06/22/2014 History of craniotomy Onset Date: 09/13/08 Z98.890 09/13/08 for 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 History of radiofrequency ablation procedure for cardiac arrhythmia Z98.890 Surgical History: cataract, herniorrhaphy, pacemaker implantation, total knee arthroplasty, - - Neurosurgery for traumatic intracranial bleed 10 years ago or more Psychiatric History: No pertinent psych hx Lives: With Family Smoking Status: Former smoker Tobacco Use: Non-smoker Alcohol: None Drugs: None - *Family History Maternal Family History: Family History (Last Reviewed 03/14/20 @ 16:20 by JESSEE Campos) Father CAD (coronary artery disease) Myocardial infarction Sudden cardiac Mother No problems noted. Uncle CAD (coronary artery disease) Sudden cardiac Myocardial infarction Other Heart disease History Items: No pertinent history Paternal Family History: Family History (Last Reviewed 03/14/20 @ 16:20 by JESSEE Campos) Father CAD (coronary artery disease) Myocardial infarction Sudden cardiac Mother No problems noted. Uncle CAD (coronary artery disease) Sudden cardiac Myocardial infarction Other Heart disease History Items: - - father had mi at age 69 Review of Systems Constitutional: Denies: Chills, Fever, Weight Change, Fatigue HEENT: Denies: Head Aches, Sinus Congestion, Sinus Drainage Cardiovascular: Reports: Chest Pain, Light Headedness, Syncope. Denies: Chest Pressure, Chest Tightness, Edema, Orthopnea, Palpitations, Paroxysmal Noc. Dyspnea Respiratory: Denies: Cough, Shortness of Breath, Shortness of breath at rest, Shortness of breath upon exertion, Sputum production Gastrointestinal: Denies: Abdominal Pain, Nausea, Vomiting Genitourinary: Denies: Dysuria Musculoskeletal: Denies: Joint Pain, Joint Tenderness Skin: Denies: Lesions, Rash, Wounds Neurological: Denies: Numbness, Tingling, Focal weakness Psychiatric: Denies: Anxiety, Depression, Homicidal Ideations, Suicidal Ideations Hematologic/ Lymphatic: Denies: Easy Bruising, Easy Bleeding VTE Information - Inpt Only VTE Present on Admission: No VTE Mechan Device Prophylaxis: None VTE Pharm Prophylaxis ordered?: Yes Patient Problems: Active and Suspected Problems (Last Reviewed 01/22/20 @ 14:57 by JESSEE Mckee) Syncope (Acute) - Physical Exam Vitals/I&O's: Vital Signs Temp Pulse Resp BP Pulse Ox 97.4 F L 76 20 H 117/87 H 95 03/14/20 16:03 03/14/20 16:03 03/14/20 16:03 03/14/20 16:03 03/14/20 16:03 Oxygen Delivery Method Room Air Weight: 189 lb 13.088 oz Body Mass Index (BMI) 24.3 Finger Stick Blood Glucose 115 General: Alert, Oriented x3, Cooperative HEENT: Atraumatic, PERRLA, EOMI, Normocephalic Neck: Supple, No JVD, Negative Carotid Bruits Lungs: Clear to auscultation, Normal air movement Cardiovascular: Regular rate, No murmurs Abdomen: Bowel Sounds Present, Soft, Non Tender Extremities: No edema, Capillary Refill Less than 3 Seconds Skin: No rashes, No breakdown Musculoskeletal: No Tenderness to Palpation of Joints or Extremities Neurological: Cranial nerves II-XII grossly intact Psych/Mental Status: Normal Affect, Appropriate, Alert and oriented to time, place, person, mood and affect Laboratory Results 03/14/20 12:10: WBC 10.8, RBC 5.26, Hgb 15.8, Hct 46.6, MCV 88.6, MCH 29.5, MCHC 33.5, RDW Std Deviation 47.8 H, RDW Coeff of Carolyn 14.9 H, Plt Count 416, MPV 10.3, Immature Gran % (Auto) 1.200 H, Neut % (Auto) 60.4, Lymph % (Auto) 28.8, [place] % (Auto) 6.6, Eos % (Auto) 2.2, Baso % (Auto) 0.8, Absolute Neuts (auto) 5.2, Absolute Lymphs (auto) 2.48, Nucleated RBC % 0 03/14/20 12:10: Sodium 138, Potassium 4.1, Chloride 106, Carbon Dioxide 24.0, Anion Gap 8, BUN 22 H, Creatinine 1.39 H, Estim Creat Clear Calc 46.82, Est GFR (MDRD) Af Amer 63, Est GFR (MDRD) Non-Af 52 L, BUN/Creatinine Ratio 15.8, Glucose 114 H, Calcium 8.8, Magnesium 2.2, Troponin I < 0.015 Assessment/Plan All Active Problems (Last Reviewed 01/22/20 @ 14:57 by JESSEE Mckee) TIA (transient ischemic attack) (Acute) Subtherapeutic international normalized ratio (INR) (Acute) Atrial fibrillation with RVR (Acute) Fever (Acute) Hypokalemia (Acute) Syncope (Acute) Fatigue (Acute) Light-headed feeling (Acute) History of coronary artery stent placement (Resolved 09/21/04) Debility (Resolved) Fall (Resolved) Hematoma (Resolved) Hip pain (Resolved) Left hip pain (Resolved) Left bundle branch block (Ruled-out) Supraventricular tachycardia (Ruled-out) 1. Syncope - + orthos in ER, labs c/w dehydration. hx of orthostatic hypotension. Complicated by use of cardizem for afib and flomax for urinary retention. Pt started on Midodrine by Dr. Gonzalez this week but admits he took everything except Midodrine this AM. Negative trop. Recent echo 55%, 34mmHg. Defer repeat. Pt did lose control of his bladder on passing out, so will check EEG. Recent TSH normal. -IV fluids. -Resume midodrine -Serial orthos -Repeat CT brain. -Cannot have MRI due to pacer. -CTA head / neck last admission with <20% stenosis BL distal common carotid artery. -Pacer check. 2. chronic afib - rate controlled. continue eliquis and cardizem. 3. Recent TIA likely due to Afib and subtherapeutic warfarin, changed to Eliquis at last admission. Serial CTs with no stroke, cant have MRI due to pacemaker. Continue HLD, eliquis. 4. BPH- flomax 5. Hypothyroidism - recent nl TSH. Continue Synthroid. DVT ppx: eliquis DEB Planning: PTOT. This patient was seen by Everton Bajwa PA-C under the supervision of Dr. Leach.
--- NOTE | 2020-03-14 17:05 | CT_ITS ---
STUDY: CT BRAIN WITHOUT CONTRAST REASON FOR EXAM: Male, 84 years old. SYNCOPE RADIATION DOSAGE (If Supplied By Facility): CTDIvol = ( 44.99 ) mGy, DLP = ( 863.60 ) mGycm TECHNIQUE: Transaxial CT imaging of the brain was performed without administration of intravenous contrast material. Individualized dose optimization techniques were used for this CT. COMPARISON: 02-28-20 FINDINGS: Normal soft tissue structures. Stable post craniotomy changes of the right calvarium. There is mild cerebral atrophy with widening of the extra-axial spaces and ventricular dilatation. There are areas of decreased attenuation within the white matter tracts of the supratentorial brain, consistent with microvascular disease changes. There are small punctate calcifications of the basal ganglia which are seen in the aging brain as a normal variant. Normal brainstem. There is mild cerebellar atrophy. There is no intracranial hemorrhage. There are no findings of an acute ischemic infarction. Normal visualized paranasal sinuses. CT/Brain/Head without Contrast IMPRESSION: No change. No acute abnormality. Atrophy and White matter disease. Electronically Signed: Pavan Hubbard MD at 19:16 EDT , Service support ,
[2020-03-14 18:15] LABS: Thyroid Stim Hormone (TSH) 2.19 uIU/mL (0.358-3.74)
[2020-03-14] MEDS: 0.9% Normal Saline 1,000 ML 100 ML IV (18:35)
[2020-03-14] MEDS: Acetaminophen 325 MG Tablet 650 MG PO (20:19)
[2020-03-14] MEDS: APIXABAN 2.5 MG TABLET PO (22:12)
[2020-03-14] MEDS: Atorvastatin Calcium 40 MG Tablet PO (22:13)
[2020-03-14 22:45] LABS: Bedside Glucose 103 mg/dL (70-110)
[2020-03-15] VITALS (12 sets, daily range): BP systolic 118–164; BP diastolic 52–96; PULSE 72–107; RESP 16–18; TEMP 36.4–36.9; O2SAT 97–99
[2020-03-15] MEDS: Acetaminophen 325 MG Tablet 650 MG PO ×3 (02:26→21:48)
[2020-03-15] MEDS: Levothyroxine 75 MCG Tablet PO (04:51)
[2020-03-15] MEDS: Midodrine HCl 5 MG Tablet 2.5 MG PO ×3 (04:51→21:50)
[2020-03-15] MEDS: 0.9% Normal Saline 1,000 ML 100 ML IV ×3 (04:55→23:35)
--- NOTE | 2020-03-15 05:55 | EKG12_ITS ---
Test Reason : AM EKG Blood Pressure : / mmHG Vent. Rate : 096 BPM Atrial Rate : 093 BPM P-R Int : 000 ms QRS Dur : 090 ms QT Int : 384 ms P-R-T Axes : 000 049 -18 degrees QTc Int : 485 ms Atrial fibrillation Nonspecific T wave abnormality Prolonged QT Abnormal ECG When compared with ECG of 26-FEB-2020 20:55, No significant change was found Confirmed by RUBI HADLEY ([id number]), film or videotape editor STEVE REHMAN ([id number]) on 03/17/2020 11:29:56 AM Referred By: ADELIA Confirmed By:RUBI HADLEY
[2020-03-15 06:08] LABS: Anion Gap 4 (5-15); BUN 16 mg/dL (7-18); BUN/Creat Ratio 14.5 RATIO (10-20); Calcium,Total 8.4 mg/dL (8.5-10.1); Chloride 110 mmol/L (98-107); EST Glomerular Filtration Rate 68 mL/min (>60); Est Glom Filt Rate - Afr Amer 82 mL/min (>60); Estimated Creatinine Clearance 58.17 ml/min; Glucose 90 mg/dL (74-106); Sodium Level 136 mmol/L (136-145)
[2020-03-15 06:25] LABS: Bedside Glucose 90 mg/dL (70-110)
[2020-03-15] MEDS: dilTIAZem CD 180 MG Capsule PO (09:04)
[2020-03-15] MEDS: APIXABAN 2.5 MG TABLET PO ×2 (09:04→21:50)
--- NOTE | 2020-03-15 10:10 | TELEMED_ITS ---
[facility] has confirmed receipt of a request for visit. This document confirms receipt of the order initiating the consult. To find the results of the consultation, please view the patient's reports for the scanned Telemed Consult.
--- NOTE | 2020-03-15 10:30 | DCINST_ITS ---
- Discharge Diagnoses Current Active Problems: Current Active and Chronic Problems (Last Reviewed 01/22/20 @ 14:57 by JESSEE Mckee) Chronic a-fib (Chronic) Syncope (Acute) You will use the following diet at home:: Cardiac Your food should be the consistency of: Regular Your liquids should be the consistency of: Regular/Thin Discharge Activity: Return to Normal Activity Additional Instructions: Resume outpatient PT and OT Allergies/Adverse Reactions: Allergies hydrochlorothiazide Adverse Reaction (Intermediate, Verified 03/14/20 13:03) syncope Medications to take at Discharge Latanoprost 0.005% [Xalatan Opthalmic] 1 drp EACH EYE QHS 07/31/18 Acetaminophen [Tylenol] 500 mg PO DAILY PRN PRN 03/14/20 Apixaban [Eliquis] 2.5 mg PO BID 03/14/20 Atorvastatin Calcium [Lipitor] 40 mg PO DAILY@2200 03/14/20 Diltiazem CD [Cardizem CD] 120 mg PO DINNER 03/14/20 Diltiazem CD [Cardizem CD] 180 mg PO DAILY 03/14/20 Levothyroxine Sodium [Synthroid] 75 mcg PO DAILY 03/14/20 Potassium Chloride [K-Dur] 40 meq PO DAILYCM 03/14/20 Tamsulosin HCl [Flomax] 0.4 mg PO DAILY@1730 03/14/20 Midodrine HCl [Proamatine] 2.5 mg PO TID #45 tab 03/15/20 The following prescriptions were given: Midodrine HCl [Proamatine] 2.5 mg PO TID #45 tab Transmission Status: Pending to [facility]/pharmacy #[id number] Primary Care Physician: Dariusz Gonzalez Chi, MD [Primary Care Provider] - Please follow up with your Primary Care Physician in: 1 week Test Results: Test results from this visit will be discussed in further detail at your follow- up appointment, if applicable. Proposed Discharge Date: 03/15/20
--- NOTE | 2020-03-15 10:47 | PHA.DC.MR ---
Pharmacy Service has performed discharge medication reconciliation for this patient. The patient's discharge medication list was reviewed for discrepancies and discrepancies were resolved. Home Medications Latanoprost 0.005% [Xalatan Opthalmic] 1 drp EACH EYE QHS 07/31/18 Acetaminophen [Tylenol] 500 mg PO DAILY PRN PRN 03/14/20 Apixaban [Eliquis] 2.5 mg PO BID 03/14/20 Atorvastatin Calcium [Lipitor] 40 mg PO DAILY@219903/14/20 Diltiazem CD [Cardizem CD] 120 mg PO DINNER 03/14/20 Diltiazem CD [Cardizem CD] 180 mg PO DAILY 03/14/20 Levothyroxine Sodium [Synthroid] 75 mcg PO DAILY 03/14/20 Potassium Chloride [K-Dur] 40 meq PO DAILYCM 03/14/20 Tamsulosin HCl [Flomax] 0.4 mg PO DAILY@1730 03/14/20 Midodrine HCl [Proamatine] 2.5 mg PO TID #45 tab 03/15/20
[2020-03-15 11:26] LABS: Bedside Glucose 124 mg/dL (70-110)
[2020-03-15] MEDS: levETIRAcetam IV 1,000 MG/100 ML BAG 400 MG IV (15:29)
--- NOTE | 2020-03-15 16:23 | PN_ITS ---
<Everton Bajwa - Last Filed: 03/15/20 16:23> Patient Problems: Active and Suspected Problems (Last Updated 03/15/20 @ 13:[address] Nicola Marie MD) Syncope (Acute) Vitals/I&O's: Vital Signs Temp Pulse Resp BP Pulse Ox 98.5 F 90 18 147/87 H 99 03/15/20 15:02 03/15/20 15:05 03/15/20 15:02 03/15/20 15:02 03/15/20 15:02 Oxygen Delivery Method Room Air Weight: 178 lb 3.2 oz Body Mass Index (BMI) 22.8 Finger Stick Blood Glucose 115 Orthostatic Vital Signs Start: 03/15/20 04:35 Freq: q24h Status: Active Protocol: Activity Type Activity Date Activity User E-Sign Co-Sign Detail Recorded Client Recorded Date Recorded By Document 03/15/20 04:35 CM [id number] 03/15/20 04:47 CM 03/15/20 04:35 Orthostatic Vitals Standing -Blood Pressure (90/60-120/80 mm Hg) 129/52 H -Extremity Use Right Arm -Pulse Rate (60-100 beats/min) 99 Sitting -Blood Pressure (90/60-120/80 mm Hg) 118/70 -Extremity Use Right Arm -Pulse Rate (60-100 beats/min) 72 Lying -Blood Pressure (90/60-120/80 mm Hg) 145/91 H -Extremity Use Right Arm -Pulse Rate (60-100 beats/min) 82 Intake and Output for Last 24 Hours 03/13/20 03/14/20 03/15/20 23:59 23:59 23:59 Intake Total 240 / 240 2440 / 2440 Output Total 800 / 800 1350 / 1350 Balance -560 / -560 1090 / 1090 General: Alert, Oriented x3, Cooperative HEENT: Atraumatic, PERRLA, EOMI, Normocephalic Neck: Supple, No JVD, Negative Carotid Bruits Lungs: Clear to auscultation, Normal air movement Cardiovascular: Regular rate, No murmurs Abdomen: Bowel Sounds Present, Soft, Non Tender Extremities: No edema, Capillary Refill Less than 3 Seconds Skin: No rashes, No breakdown Musculoskeletal: No Tenderness to Palpation of Joints or Extremities Neurological: Cranial nerves II-XII grossly intact Psych/Mental Status: Normal Affect, Appropriate, Alert and oriented to time, place, person, mood and affect Laboratory Results 03/14/20 17:10: Troponin I < 0.015 03/14/20 17:10: TSH 2.19 03/14/20 20:40: Troponin I < 0.015 03/14/20 22:11: POC Glucose 103 03/15/20 05:04: Sodium 136, Potassium 4.0, Chloride 110 H, Carbon Dioxide 22.0, Anion Gap 4 L, BUN 16, Creatinine 1.10, Estim Creat Clear Calc 58.17, Est GFR (MDRD) Af Amer 82, Est GFR (MDRD) Non-Af 68, BUN/Creatinine Ratio 14.5, Glucose 90, Calcium 8.4 L 03/15/20 06:22: POC Glucose 90 03/15/20 11:22: POC Glucose 124 H Current Medications Acetaminophen (Tylenol) 650 mg PO Q6H PRN PRN PRN Reason: Pain Scor 1-05/28 or Fever Last Admin: 03/15/20 15:36 Dose: 650 mg Documented by: Apixaban (Eliquis) 2.5 mg PO BID [facility] Last Admin: 03/15/20 09:04 Dose: 2.5 mg Documented by: Atorvastatin Calcium (Lipitor) 40 mg PO QHS [facility] Last Admin: 03/14/20 22:13 Dose: 40 mg Documented by: Dextrose (D50w Syringe) 0 gm IV X1 PRN; Protocol PRN Reason: Hypoglycemia Diltiazem HCl (Cardizem Cd) 120 mg PO DINNER [facility] Diltiazem HCl (Cardizem Cd) 180 mg PO DAILY [facility] Last Admin: 03/15/20 09:04 Dose: 180 mg Documented by: Glucagon () 1 mg IM .X1 PRN PRN Reason: Hypoglycemia Sodium Chloride () 250 mls @ 15 mls/hr IV .[id number] PRN PRN Reason: Saline Flush Sodium Chloride () 250 mls @ 15 mls/hr IV .[id number] PRN PRN Reason: Additional IVPB Infusion Sodium Chloride () 1,000 mls @ 100 mls/hr IV .Q10H [facility] Last Admin: 03/15/20 13:20 Dose: 100 mls/hr Documented by: Levetiracetam (Keppra Tablet) 500 mg PO BID [facility] Levothyroxine Sodium (Synthroid) 75 mcg PO DAILY@0600 [facility] Last Admin: 03/15/20 04:51 Dose: 75 mcg Documented by: Midodrine (Proamatine) 2.5 mg PO TID [facility] Last Admin: 03/15/20 13:24 Dose: 2.5 mg Documented by: Sodium Chloride () 10 - 40 ml IV UD PRN PRN Reason: SALINE FLUSH Tamsulosin HCl (Flomax) 0.4 mg PO DAILY@1730 [facility] STROKE Vital Signs/Narrative: Vital Signs Temp Pulse Resp BP Pulse Ox 03/15/20 15:05 90 03/15/20 15:02 98.5 F 83 18 147/87 H 99 03/15/20 14:03 94 Medical Necessity - Tobacco Use Smoking Status: Former smoker Tobacco Use: Non-smoker Assessment/Plan All Active Problems (Last Updated 03/15/20 @ 13:[address] Nicola Marie MD) Syncope (Acute) 1. Syncope - orthostatic hypotension, seizure -cardiology consulted - stop cardizem, start dig/amio -pacer check completed, on chart - afib rvr multiple episodes -arian hoses and midodrine for orthos -EEG with possible seizure activity - load 1000 mg iv keppra, then 500 po bid. needs longer eeg study to determine if this is truly seizure activity -ct brain with chronic changes/atrophy. 2. chronic afib - as above 3. Recent TIA likely due to Afib and subtherapeutic warfarin, changed to Eliquis at last admission. Serial CTs with no stroke, cant have MRI due to pacemaker. Continue HLD, eliquis. 4. BPH- flomax, complicating #1. would not stop this as he had urinary retention requiring hernandez last admission. 5. Hypothyroidism - recent nl TSH. Continue Synthroid. 6. has hx PM for tachy/rosa syndrome. DVT ppx: eliquis DC Planning: PTOT. This patient was seen by Everton Bajwa PA-C under the supervision of Dr. Marie <Nicola Marie - Last Filed: 03/16/20 11:46> Vitals/I&O's: Vital Signs Temp Pulse Resp BP Pulse Ox 98.5 F 90 18 147/87 H 99 03/15/20 15:02 03/15/20 15:05 03/15/20 15:02 03/15/20 15:02 03/15/20 15:02 Oxygen Delivery Method Room Air Weight: 178 lb 3.2 oz Body Mass Index (BMI) 22.8 Finger Stick Blood Glucose 115 Orthostatic Vital Signs Start: 03/15/20 04:35 Freq: q24h Status: Active Protocol: Activity Type Activity Date Activity User E-Sign Co-Sign Detail Recorded Client Recorded Date Recorded By Document 03/15/20 04:35 CM [id number] 03/15/20 04:47 CM 03/15/20 04:35 Orthostatic Vitals Standing -Blood Pressure (90/60-120/80) 129/52 H -Extremity Use Right Arm -Pulse Rate (60-100) 99 Sitting -Blood Pressure (90/60-120/80) 118/70 -Extremity Use Right Arm -Pulse Rate (60-100) 72 Lying -Blood Pressure (90/60-120/80) 145/91 H -Extremity Use Right Arm -Pulse Rate (60-100) 82 Intake and Output for Last 24 Hours 03/13/20 03/14/20 03/15/20 23:59 23:59 23:59 Intake Total 240 / 240 2440 / 2440 Output Total 800 / 800 1350 / 1350 Balance -560 / -560 1090 / 1090 Laboratory Results 03/14/20 17:10: Troponin I < 0.015 03/14/20 17:10: TSH 2.19 03/14/20 20:40: Troponin I < 0.015 03/14/20 22:11: POC Glucose 103 03/15/20 05:04: Sodium 136, Potassium 4.0, Chloride 110 H, Carbon Dioxide 22.0, Anion Gap 4 L, BUN 16, Creatinine 1.10, Estim Creat Clear Calc 58.17, Est GFR (MDRD) Af Amer 82, Est GFR (MDRD) Non-Af 68, BUN/Creatinine Ratio 14.5, Glucose 90, Calcium 8.4 L 03/15/20 06:22: POC Glucose 90 03/15/20 11:22: POC Glucose 124 H Current Medications Acetaminophen (Tylenol) 650 mg PO Q6H PRN PRN PRN Reason: Pain Scor 1-10/10 or Fever Last Admin: 03/15/20 15:36 Dose: 650 mg Documented by: Amiodarone HCl (Cordarone) 200 mg PO BID [facility] Apixaban (Eliquis) 2.5 mg PO BID [facility] Last Admin: 03/15/20 09:04 Dose: 2.5 mg Documented by: Atorvastatin Calcium (Lipitor) 40 mg PO QHS [facility] Last Admin: 03/14/20 22:13 Dose: 40 mg Documented by: Dextrose (D50w Syringe) 0 gm IV X1 PRN; Protocol PRN Reason: Hypoglycemia Digoxin (Lanoxin) 125 mcg PO DAILY [facility] Glucagon () 1 mg IM .X1 PRN PRN Reason: Hypoglycemia Sodium Chloride () 250 mls @ 15 mls/hr IV .[id number] PRN PRN Reason: Saline Flush Sodium Chloride () 250 mls @ 15 mls/hr IV .[id number] PRN PRN Reason: Additional IVPB Infusion Sodium Chloride () 1,000 mls @ 100 mls/hr IV .Q10H [facility] Last Admin: 03/15/20 13:20 Dose: 100 mls/hr Documented by: Levetiracetam (Keppra Tablet) 500 mg PO BID [facility] Levothyroxine Sodium (Synthroid) 75 mcg PO DAILY@0600 [facility] Last Admin: 03/15/20 04:51 Dose: 75 mcg Documented by: Midodrine (Proamatine) 2.5 mg PO TID [facility] Last Admin: 03/15/20 13:24 Dose: 2.5 mg Documented by: Sodium Chloride () 10 - 40 ml IV UD PRN PRN Reason: SALINE FLUSH Tamsulosin HCl (Flomax) 0.4 mg PO DAILY@1730 [facility] STROKE Vital Signs/Narrative: Vital Signs Temp Pulse Resp BP Pulse Ox 03/15/20 15:05 90 03/15/20 15:02 98.5 F 83 18 147/87 H 99 03/15/20 14:03 94 Assessment/Plan Hospitalist note: I am seeing this patient in conjunction with Everton Bajwa. I independently seen and examined the patient. Progress note above, laboratory data and imaging studies reviewed and I concur with the above treatment plan. Patient denied any complaints. He has been ambulating, no dizziness or lightheadedness. No chest pain or shortness of breath. He had an episode of urine incontinence when he passed out. His vital signs are stable. - Physical Exam General: Alert, Oriented x3, Cooperative, No apparent distress. HEENT: Atraumatic, PERRLA, EOMI. Neck: Supple, No JVD, Negative Carotid Bruits, Trachea Midline, Thyroid Normal. Lungs: Clear to auscultation, Normal air movement, No rhonchi, No wheeze, No rales. Cardiovascular: Irregular rate and rhythm, Normal S1, Normal S2, PMI Normal. Abdomen: Bowel Sounds Present, Soft, Non Tender, Non-Distended, No Hepato-splenomegaly. Extremities: No clubbing, No cyanosis, No edema Skin: No rashes, No breakdown Neurological: Neuro grossly intact Vital Signs are stable. Assessment and plan: #1 syncope: Attributed to orthostatic hypotension, seizure is another possibility. EEG done and revealed possible seizure activity. SOC tele- neurology consulted and recommended loading Keppra and then Keppra 500 p.o. twice daily. Cardiology consulted, started patient on digoxin and amiodarone, stop Cardizem. Pacer check, results reviewed. CT scan brain showed no acute findings. Plan to monitor overnight, possible DC home tomorrow. #2 other chronic medical problems: Stable, continue current medications as above. This note was generated with [employer] dictation software. It may contain incorrect words, spelling, and punctuation that were not noted in checking the note before signing. OBSV E&M: [id number] Subsequent observation care L2
[2020-03-15] MEDS: Tamsulosin HCl 0.4 MG Capsule PO (16:58)
[2020-03-15 17:16] LABS: Bedside Glucose 108 mg/dL (70-110)
[2020-03-15] MEDS: Digoxin 125 MCG Tablet PO (17:20)
[2020-03-15] MEDS: Amiodarone 200 MG Tablet PO ×2 (17:21→21:49)
--- NOTE | 2020-03-15 18:35 | CON.PCM_ITS ---
Problem List (1) Syncope Status: Acute (2) Atrial fibrillation with RVR Status: Chronic (3) Ventricular tachycardia Status: Chronic (4) Atherosclerotic heart disease of [place] coronary artery without angina pectoris Status: Chronic Qualifiers: [place] vs. transplanted heart: [place] heart Qualified Code(s): I25.10 - Atherosclerotic heart disease of [place] coronary artery without angina pectoris Comment: [id number] LAD 09/21/2004 (5) History of coronary artery stent placement Status: Resolved Comment: [id number] LAD 09/21/2004 (6) Presence of permanent cardiac pacemaker Status: Chronic Comment: Permanent Pacemaker insertion, single chamber 10/17/15, [employer] (7) Hyperlipidemia Status: Chronic Qualifiers: Hyperlipidemia type: pure hypercholesterolemia Qualified Code(s): E78.00 - Pure hypercholesterolemia, unspecified; E78.0 - Pure hypercholesterolemia (8) Essential (primary) hypertension Status: Chronic Reason for Consult Date of Consultation: 03/15/20 History of Present Illness: The patient is a 84 year old white male with a past cardiovascular history which has included underlying CAD, LAD PCI-remote, atrial fibrillation-permanent status post EPS/RFA, nonsustained ventricular tachycardia, alternating bundle branch block, status post permanent pacemaker placement, who presents for syncope thought secondary to orthostasis. He has been having issues with orthostatic blood pressure changes. His medications have been adjusted. He was at the outpatient OT PT facility recently ([facility]) where while sitting on his walker he was witnessed by his daughter to subsequently, unresponsive and lose consciousness. He was evaluated by the health care team present and CPR was performed pending further evaluation by EMS. He states he does not remember prior to becoming unresponsive and losing consciousness having any chest discomfort or difficulty breathing or the sensation of a different heartbeat. He states he remembers waking up with the EMS present. He was brought to the hospital for further evaluation. Then he complained of chest soreness over his sternum and rib cage. He was brought into the hospital for further evaluation. He has had cardiac enzymes performed which were negative. His cardiac rhythm has demonstrated atrial fibrillation with intermittent electronic ventricular paced rhythm. His ECG demonstrated atrial fibrillation with nonspecific ST and T wave abnormality. He was found to be orthostatic. He also underwent neurological evaluation with concerns of whether or not he may have had seizure events. He has been recommended for antiseizure medication. In the meantime cardiovascular services was consulted to reassess him with respect to his underlying cardiac condition and his orthostatic changes and needs for potential medication changes above and beyond his volume support, support stockings, and midodrine therapy. [] Past Medical History Allergies/Adverse Reactions: Allergies hydrochlorothiazide Adverse Reaction (Intermediate, Verified 03/14/20 13:03) syncope Home Medications: Ambulatory Orders Medication Instructions Recorded Latanoprost 0.005% [Xalatan 1 drp EACH EYE QHS 07/31/18 Opthalmic] Acetaminophen [Tylenol] 500 mg PO DAILY PRN PRN 03/14/20 Apixaban [Eliquis] 2.5 mg PO BID 03/14/20 Atorvastatin Calcium [Lipitor] 40 mg PO DAILY@0 03/14/20 Diltiazem CD [Cardizem CD] 120 mg PO DINNER 03/14/20 Diltiazem CD [Cardizem CD] 180 mg PO DAILY 03/14/20 Levothyroxine Sodium [Synthroid] 75 mcg PO DAILY 03/14/20 Potassium Chloride [K-Dur] 40 meq PO DAILYCM 03/14/20 Tamsulosin HCl [Flomax] 0.4 mg PO DAILY@1730 03/14/20 Midodrine HCl [Proamatine] 2.5 mg PO TID #45 tab 03/15/20 levETIRAcetam tablet [Keppra 500 mg PO BID #60 tab 03/15/20 tablet] Past Medical History (Chronic Problems): Chronic Problems (Last Updated 03/15/20 @ 13:[address] 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 (Chronic) [id number] LAD 09/21/2004 Longstanding persistent atrial fibrillation (Chronic) 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) Permanent Pacemaker insertion, single chamber 10/17/15, [employer] Essential (primary) hypertension (Chronic) Hyperlipidemia (Chronic) Bundle branch block, right (Chronic) Surgical History: cataract, herniorrhaphy, pacemaker implantation, total knee arthroplasty, - - Neurosurgery for traumatic intracranial bleed 10 years ago or more Psychiatric History: No pertinent psych hx - *Family History Maternal Family History: Family History (Last Reviewed 03/14/20 @ 16:20 by JESSEE Campos) Father CAD (coronary artery disease) Myocardial infarction Sudden cardiac Mother No problems noted. Uncle CAD (coronary artery disease) Sudden cardiac Myocardial infarction Other Heart disease History Items: No pertinent history Paternal Family History: Family History (Last Reviewed 03/14/20 @ 16:20 by JESSEE Campos) Father CAD (coronary artery disease) Myocardial infarction Sudden cardiac Mother No problems noted. Uncle CAD (coronary artery disease) Sudden cardiac Myocardial infarction Other Heart disease History Items: - - father had mi at age 69 Lives: With Family Smoking Status: Former smoker Tobacco Use: Non-smoker Alcohol: None Drugs: None Review of Systems - Review of Systems General: Denies: Fever, Night Sweats, Fatigue Cardiovascular: Reports: Syncope. Denies: Chest Discomfort, Shortness of Breath, Orthopnea, PND, Peripheral Edema, Palpitations, Lightheadedness, Dizziness, Near Syncope Respiratory: Denies: Cough, Sputum Production, Hemoptysis Gastrointestinal: Denies: Hematemesis, Hematochezia, Melena Genitourinary: Denies: Dysuria, Hematuria Skin: Denies: Rash Subjectve: Is an 84-year-old white male who appears to be resting comfortably in bed at this time in no acute distress. Objective: Vital Signs Temp Pulse Resp BP Pulse Ox 98.5 F 81 18 164/96 H 99 03/15/20 15:02 03/15/20 17:20 03/15/20 15:02 03/15/20 17:19 03/15/20 15:02 Oxygen Delivery Method Room Air Weight: 178 lb 3.2 oz Body Mass Index (BMI) 22.8 Finger Stick Blood Glucose 115 Orthostatic Vital Signs Start: 03/15/20 04:35 Freq: q24h Status: Active Protocol: Activity Type Activity Date Activity User E-Sign Co-Sign Detail Recorded Client Recorded Date Recorded By Document 03/15/20 04:35 CM [id number] 03/15/20 04:47 CM 03/15/20 04:35 Orthostatic Vitals Standing -Blood Pressure (90/60-120/80 mm Hg) 129/52 H -Extremity Use Right Arm -Pulse Rate (60-100 beats/min) 99 Sitting -Blood Pressure (90/60-120/80 mm Hg) 118/70 -Extremity Use Right Arm -Pulse Rate (60-100 beats/min) 72 Lying -Blood Pressure (90/60-120/80 mm Hg) 145/91 H -Extremity Use Right Arm -Pulse Rate (60-100 beats/min) 82 Intake and Output for Last 24 Hours 03/13/20 03/14/20 03/15/20 23:59 23:59 23:59 Intake Total 240 / 240 2902 / 2902 Output Total 800 / 800 1974 Balance -560 / -560 927 / 927 General: Awake, Alert, Oriented x 3, Cooperative, No Acute Distress HEENT: Atraumatic, Normocephalic, PERRL, EOMI, Sclera Non Icteric, - - Head: Positive surgical scar: Well-healed Neck: Supple, Good ROM, No JVD Lungs: Clear to auscultation Cardiovascular: Irregular Rhythm, Normal S1, Normal S2 Vascular: No Carotid Bruits Abdomen: Bowel Sounds Present, Soft Extremities: No edema Psych/Mental Status: Appropriate 03/14/20 20:40: Troponin I < 0.015 03/15/20 05:04: Sodium 136, Potassium 4.0, Chloride 110 H, Carbon Dioxide 22.0, Anion Gap 4 L, BUN 16, Creatinine 1.10, Est GFR (MDRD) Af Amer 82, Est GFR (MDRD) Non-Af 68, BUN/Creatinine Ratio 14.5, Glucose 90, Calcium 8.4 L Rhythm: As noted above EKG: As noted above ECHO: ?2019 Interpretation Summary Normal LV size. Left ventricular systolic function is normal. The estimated ejection fraction is 55 %. Mild (1+) tricuspid valve insufficiency. The left atrium is mildly enlarged. The right atrium is moderately enlarged. Stress Test: 03-31-2018 Pharmacologic myocardial perfusion stress test. 82-year-old man with a history of atrial fibrillation. Stress protocol: Resting EKG demonstrates atrial fibrillation with a rate of 93 bpm normal intervals and noted resting blood pressure is 142/88 mmHg. 0.4 mg regadenoson was infused per usual protocol followed by rapid intravenous saline flush injection continuous EKG monitoring was performed. Patient maintained atrial fibrillation throughout the recording. The maximum heart rate attained was 111 bpm which was 79% of maximum predicted heart rate the maximum workload was 1 metabolic equivalent. At rest there were no ST or T-wave changes noted to suggest abnormal flow reserve at peak infusion no ST or T-wave changes were noted to suggest abnormal flow reserve. Resting blood pressure is 142/88 with a final blood pressure 112/76. Myocardial perfusion protocol. 11.9 mCi of technetium 99m sestamibi was injected at rest. 0.4 mg regadenoson was infused per usual protocol peak infusion 33.8 mCi of technetium 99m sestamibi was injected stress images were obtained stress and rest images were reconstructed and compared in the short axis vertical long and horizontal long axis. Gated images were also obtained. Perfusion SPECT analysis: Review of the stress images demonstrate normal uptake of tracer noted in all areas of the myocardium. The resting images similarly demonstrate normal uptake of tracer noted in all areas of the myocardium. No areas of reversibility are noted suggest ischemia. Gated SPECT analysis: The gated ejection fraction demonstrates an ejection fraction of 34%. Conclusion: Mildly dilated cardiomyopathy. Myocardial perfusion stress test with no evidence of ischemia. Persistent atrial fibrillation present. PPM: Remote PPM check was performed with information being reported from his PPM company: [employer]: With findings of atrial fibrillation with RVR CXR: No acute cardiopulmonary disease process appreciated: Please see official report Assessment/Plan 1. Syncope There are concerns with the patient's syncopal event may have been related to his orthostatic history as opposed to a primary cardiac dysrhythmia or primary CAD related/ischemic mediated event. However he is also been undergoing evaluation for other etiologies such as CVA and seizure disorder. From a cardiac standpoint with respect to concerns of his orthostatic changes there has been an attempt to balance his medicines with respect to rate control medication but yet avoid hypotension. He has been encouraged to maintain volume status, wear support stockings, and he has recently been placed on additional medical therapy to support his blood pressure - midodrine. At the present time he will continue to be monitored. He has been receiving IV fluids. An attempt will be made to alter his medications to minimize hypotensive effects. This will include discontinuation of his diltiazem therapy and initiation of alternative rate limiting therapy with agents such as digitalis as well as possibly amiodarone days which may assist with rate control as well as his underlying ventricular dysrhythmia). Has recently undergone noninvasive evaluation with a transthoracic echocardiogram. His previous exercise tolerance test/imaging study was revi ewed. At the moment it does not appear he requires additional repeat noninvasive or invasive cardiovascular studies. His pacemaker was interrogated as noted. Based upon the information returned to [facility] it appeared the findings were compatible with his atrial fibrillation with rapid ventricular response. 2. Atrial fibrillation He does appear to have atrial fibrillation. It appears to be permanent at this time. He has continued rate control therapy and anticoagulant therapy. However based upon the aforementioned concerns his medications are now going to be adjusted to rate limiting therapy with digitalis to avoid hypotensive effects from diltiazem therapy along with an attempt at rate limiting therapy from amiodarone-which may also potentially benefit his underlying ventricular dysrhythmia. 3. Nonsustained ventricular tachycardia He has been noted on cardiac security monitor to have an episode of nonsustained ventricular tachycardia of approximately 5 beats in duration. At the moment he has not been found to have any definitive acute ischemic events that may be related to this above and beyond his chronic history. At the present time he will continue medical management. This will include alteration of his medications as noted above. Depending upon his clinical course he may or may not need additional evaluation and/or care. 4. CAD status post PCI He does have a history of previous PCI as noted. His cardiac enzymes at this time have remained negative. He will continue to be monitored and continue medical management with adjustment as tolerated. Depending upon his clinical course he may or may not need reevaluation of his coronary status. 5. Permanent pacemaker He does have a permanent pacemaker. Based upon his history it appears this was placed based upon concerns of an alternating bundle branch block pattern. It has been reported is functioning appropriately. 6. Hyperlipidemia He will continue risk factor evaluation care as deemed appropriate. 7. Hypertension Again his blood pressures have fluctuated. At times he appears to be hypertensive when he is resting and/or supine but at other times when he has been up he has been shown to be orthostatic positive. Thus an attempt is being made to manage his medications, volume status, etc. to minimize hypertension as well as hypotension and then hopefully minimize his episodes of unconsciousness/syncope. Comment: The patient's case has been discussed and reviewed with the patient, his daughter, the [facility] staff, and his primary employment clerk Dr. Lpoez. This note was generated using a voice recognition system and there may be incorrect words, spelling or punctuation that were not noted when reviewing the office note prior to saving.
[2020-03-15] MEDS: Atorvastatin Calcium 40 MG Tablet PO (21:50)
[2020-03-15] MEDS: levETIRAcetam 500 MG Tablet PO (21:51)
[2020-03-15 23:51] LABS: Bedside Glucose 92 mg/dL (70-110)
[2020-03-16] VITALS (7 sets, daily range): BP systolic 98–155; BP diastolic 57–99; PULSE 66–96; RESP 18; TEMP 36.4–36.6; O2SAT 94–99
[2020-03-16] MEDS: Acetaminophen 325 MG Tablet 650 MG PO (05:18)
[2020-03-16] MEDS: Levothyroxine 75 MCG Tablet PO (05:18)
[2020-03-16] MEDS: Midodrine HCl 5 MG Tablet 2.5 MG PO (05:22)
[2020-03-16] MEDS: APIXABAN 2.5 MG TABLET PO (09:00)
[2020-03-16] MEDS: levETIRAcetam 500 MG Tablet PO (09:00)
[2020-03-16] MEDS: Amiodarone 200 MG Tablet PO (09:00)
[2020-03-16] MEDS: Digoxin 125 MCG Tablet PO (09:00)
[2020-03-16] MEDS: 0.9% Normal Saline 1,000 ML 100 ML IV (09:01)
--- NOTE | 2020-03-16 11:11 | CASEMGMT ---
STEVEN THOMPSON NOTE: STEVEN CM to room to review LOUIE form. Pt resting in bed, awake/alert/oriented. LOUIE form reviewed w/pt and questions answered. LOUIE form signed by pt, copy made and placed on chart, and original returned to pt. Pt denies having any further questions at this time. Pt made aware to ask for CM if he has any further questions. Pt voices understanding. Channing DAVIDSON RN CM
--- NOTE | 2020-03-16 11:18 | PCM.DC ---
- Discharge Diagnoses Current Active Problems: Current Active and Chronic Problems (Last Updated 03/15/20 @ 13:[address] Nicola Marie MD) Chronic a-fib (Chronic) Syncope (Acute) Ventricular tachycardia (Chronic) Discharge Activity: Return to Normal Activity Additional Instructions: Continue to use RADHA hoses on your legs during the day every day. Take additional time and care when changing positions from lying down to sitting, to standing, as your blood pressure tends to temporarily decrease with these changes. If you feel dizzy, lightheaded, or weak, sit down or lay down until the feeling passes. If this happens frequently, call your family medicine doctor for further instructions. Allergies/Adverse Reactions: Allergies hydrochlorothiazide Adverse Reaction (Intermediate, Verified 03/14/20 13:03) syncope Medications to take at Discharge Latanoprost 0.005% [Xalatan Opthalmic] 1 drp EACH EYE QHS 07/31/18 Acetaminophen [Tylenol] 500 mg PO DAILY PRN PRN 03/14/20 Apixaban [Eliquis] 2.5 mg PO BID 03/14/20 Atorvastatin Calcium [Lipitor] 40 mg PO DAILY@2200 03/14/20 Levothyroxine Sodium [Synthroid] 75 mcg PO DAILY 03/14/20 Potassium Chloride [K-Dur] 40 meq PO DAILYCM 03/14/20 Tamsulosin HCl [Flomax] 0.4 mg PO DAILY@1730 03/14/20 Midodrine HCl [Proamatine] 2.5 mg PO TID #45 tab 03/15/20 levETIRAcetam tablet [Keppra tablet] 500 mg PO BID #60 tab 03/15/20 Amiodarone HCl [Cordarone] 200 mg PO BID #60 tab 03/16/20 Digoxin [Lanoxin] 125 mcg PO DAILY #30 tab 03/16/20 The following prescriptions were given: Amiodarone HCl [Cordarone] 200 mg PO BID #60 tab Transmission Status: Pending to [id number] levETIRAcetam tablet [Keppra tablet] 500 mg PO BID #60 tab Transmission Status: Received by [facility][id number] Digoxin [Lanoxin] 125 mcg PO DAILY #30 tab Transmission Status: Pending to [facility][id number] Midodrine HCl [Proamatine] 2.5 mg PO TID #45 tab Transmission Status: Received by [facility][id number] Primary Care Physician: Dariusz Gonzalez Chi, MD [Primary Care Provider] - Please follow up with your Primary Care Physician in: 1 week Test Results: Test results from this visit will be discussed in further detail at your follow-up appointment, if applicable. Please Follow Up With: Garrick Mccoy MD When: 2 weeks Please Follow Up With: Aristeo Lopez MD - OK to see PA or [employer]ARET[employer] FILTER INSPECTOR When: 2 weeks Proposed Discharge Date: 03/15/20
--- NOTE | 2020-03-16 11:22 | DS.PCM_ITS ---
<Everton Bajwa - Last Filed: 03/16/20 11:22> Discharge Date and Diagnosis - Problem List Patient Problems: Active and Suspected Problems (Last Updated 03/15/20 @ 13:[address] Nicola Marie MD) Syncope (Acute) Date of Admission: 03/14/20 Date of Discharge: 03/16/20 - Primary Discharge Diagnosis Acute Problems: Active Problems (Last Updated 03/15/20 @ 13:[address] Nicola Marie MD) Syncope (Acute) due to orthostatic hypotension Seizure activity Chronic Afib, hx tachy / rosa syndrome, has pacemaker. Nonsustained Vtach Recent TIA BPH Hypothyroidism Hx subdural hemorrhage with prior craniotomy. - Secondary Discharge Diagnosis Chronic Problems: Chronic Problems (Last Updated 03/15/20 @ 13:[address] 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 CT/Brain/Head without Contrast IMPRESSION: No change. No acute abnormality. Atrophy and White matter disease. EEG: The background rhythm consists of a well modulated 9 Hz alpha rhythm that attenuated well with eye opening. Appropriate admixture of alpha and theta activity noted. There is higher amplitude theta activity noted from the right frontocentral temporal region with occasional sharp waves maximally at C4 and T4. Impression: Abnormal EEG with right frontal central temporal slowing suggestive of focal cerebral dysfunction, the presence of sharp waves denotes an increased risk for partial seizures. 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 The patient was at outpatient physical therapy, his daughter came to pick him up, he became really weak and sat down in his chair, soon after he slumped over unconscious. She did not fall to the ground or hit his head. EMS was called who could not find a pulse and initiated CPR. The patient woke up within about a minute and was back to his normal self. He had some soreness in his chest from where they performed CPR. He had lost control of his bladder when he passed out. He did not have any shaking activity noted. He did not bite his tongue. He had no postictal phase. He was brought to the emergency room where he had an EKG which did not demonstrate ischemic changes and he had a negative troponin. CT of the brain did not have an acute abnormality: he has chronic changes including atrophy and white matter disease. He had significant orthostatic hypotension. The patient admitted that he was recently started on midodrine by his PCP for orthostatic hypotension, but that the morning of presentation he took all of his medications except for his midodrine. The patient's labs were consistent with dehydration with a mildly elevated BUN and creatinine. The patient was admitted to the PCU and placed on telemetry. He had some occasional tachycardia on tele. Pacer interrogation also revealed tachycardia, A. fib RVR. He was given IV fluids overnight and had improvement in his BUN and creatinine. Midodrine was restarted. RADHA hoses were added to help with his orthostatic hypotension. An EEG was obtained given the patient's report of loss of bladder control and syncope. This did reveal abnormalities indicating possible seizure activity. Neurology was consulted and recommended initiation of a loading dose of IV Keppra and starting Keppra 500 mg p.o. twice daily. They recommended that he have a longer term EEG study in order to verify whether this is truly seizure activity, and follow-up with neurology as an outpatient. They also recommended cardiology evaluate the patient given his ongoing orthostatic hypotension. Cardiology was consulted and modified his home medication regimen for A. fib in order to optimize his blood pressures issues and rhythm dysfunction. The patient had an episode of nonsustained V. tach as well. The patient was taken off of Cardizem and placed on digoxin and amiodarone. The patient was kept overnight for monitoring and had good control of his resting blood pressure and pulse. He unfortunately continues to have orthostatic hypotension. The patient is also on Flomax which may be contributing to this however on his last admission he had urinary retention requiring Michael catheterization so I would not discontinue his Flomax at this time. The patient was advised to continue using RADHA hoses and to be sure to take his midodrine 3 times daily without missing doses, as well as to use additional care on position changes. He was advised to follow-up with his PCP in 1 week, follow-up with cardiology in 2 weeks, follow-up with neurology in 2 weeks. He was discharged home in stable condition and should resume outpatient PT and OT. This patient was seen by Everton Bajwa PA-C under the supervision of Doctor Frank. [] Patient Problems: Active and Suspected Problems (Last Updated 03/15/20 @ 13:[address] Nicola Marie MD) Syncope (Acute) - Physical Exam Vitals/I&O's: Vital Signs Temp Pulse Resp BP Pulse Ox 97.8 F 83 18 135/88 H 97 03/16/20 08:58 03/16/20 11:02 03/16/20 08:58 03/16/20 08:58 03/16/20 08:58 Oxygen Delivery Method Room Air Weight: 178 lb 3.2 oz Body Mass Index (BMI) 22.8 Finger Stick Blood Glucose 115 Orthostatic Vital Signs Start: 03/15/20 04:35 Freq: q24h Status: Active Protocol: Activity Type Activity Date Activity User E-Sign Co-Sign Detail Recorded Client Recorded Date Recorded By Document 03/16/20 03:00 MAB [id number] 03/16/20 03:28 MAB 03/16/20 03:00 Orthostatic Vitals Standing -Blood Pressure (90/60-120/80) 98/57 L -Extremity Use Right Arm -Pulse Rate (60-100) 84 Sitting -Blood Pressure (90/60-120/80) 126/68 H -Extremity Use Right Arm -Pulse Rate (60-100) 81 Lying -Blood Pressure (90/60-120/80) 153/94 H -Extremity Use Right Arm -Pulse Rate (60-100) 84 Intake and Output for Last 24 Hours 07/27/20 07/28/20 07/29/20 23:59 23:59 23:59 Intake Total 240 / 240 4142 / 4142 1183.33 / 1183.33 Output Total 800 / 800 2675 / 2675 950 / 950 Balance -560 / -560 1467 / 1467 233.33 / 233.33 General: Alert, Oriented x3, Cooperative HEENT: Atraumatic, PERRLA, EOMI, Normocephalic Neck: Supple, No JVD, Negative Carotid Bruits Lungs: Clear to auscultation, Normal air movement Cardiovascular: Regular rate, No murmurs Abdomen: Bowel Sounds Present, Soft, Non Tender Extremities: No edema, Capillary Refill Less than 3 Seconds Skin: No rashes, No breakdown Musculoskeletal: No Tenderness to Palpation of Joints or Extremities Neurological: Cranial nerves II-XII grossly intact Psych/Mental Status: Normal Affect, Appropriate, Alert and oriented to time, place, person, mood and affect Laboratory Results 03/15/20 11:22: POC Glucose 124 H 03/15/20 16:58: POC Glucose 108 03/15/20 21:48: POC Glucose 92 Current Medications Acetaminophen (Tylenol) 650 mg PO Q6H PRN PRN PRN Reason: Pain Scor 1-10/10 or Fever Last Admin: 03/16/20 05:18 Dose: 650 mg Documented by: Amiodarone HCl (Cordarone) 200 mg PO BID ON LICENSE OF [facility] Last Admin: 03/16/20 09:00 Dose: 200 mg Documented by: Apixaban (Eliquis) 2.5 mg PO BID ON LICENSE OF [facility] Last Admin: 03/16/20 09:00 Dose: 2.5 mg Documented by: Atorvastatin Calcium (Lipitor) 40 mg PO QHS ON LICENSE OF [facility] Last Admin: 03/15/20 21:50 Dose: 40 mg Documented by: Dextrose (D50w Syringe) 0 gm IV X1 PRN; Protocol PRN Reason: Hypoglycemia Digoxin (Lanoxin) 125 mcg PO DAILY ON LICENSE OF [facility] Last Admin: 03/16/20 09:00 Dose: 125 mcg Documented by: Glucagon () 1 mg IM .X1 PRN PRN Reason: Hypoglycemia Sodium Chloride () 250 mls @ 15 mls/hr IV .[id number] PRN PRN Reason: Saline Flush Sodium Chloride () 250 mls @ 15 mls/hr IV .[id number] PRN PRN Reason: Additional IVPB Infusion Sodium Chloride () 1,000 mls @ 100 mls/hr IV .Q10H ON LICENSE OF [facility] Last Admin: 03/16/20 09:01 Dose: 100 mls/hr Documented by: Levetiracetam (Keppra Tablet) 500 mg PO BID ON LICENSE OF [facility] Last Admin: 03/16/20 09:00 Dose: 500 mg Documented by: Levothyroxine Sodium (Synthroid) 75 mcg PO DAILY@0600 ON LICENSE OF [facility] Last Admin: 03/16/20 05:18 Dose: 75 mcg Documented by: Midodrine (Proamatine) 2.5 mg PO TID ON LICENSE OF [facility] Last Admin: 03/16/20 05:22 Dose: 2.5 mg Documented by: Sodium Chloride () 10 - 40 ml IV UD PRN PRN Reason: SALINE FLUSH Tamsulosin HCl (Flomax) 0.4 mg PO DAILY@173 ON LICENSE OF [facility] Last Admin: 03/15/20 16:58 Dose: 0.4 mg Documented by: Discharge Diet: Low fat/ Low Cholesterol, 2000 mg Sodium Diet Discharge Activity: Return to Normal Activity Home Medications: Medications to take at Discharge Latanoprost 0.005% [Xalatan Opthalmic] 1 drp EACH EYE QHS 07/31/18 Acetaminophen [Tylenol] 500 mg PO DAILY PRN PRN 03/14/20 Apixaban [Eliquis] 2.5 mg PO BID 03/14/20 Atorvastatin Calcium [Lipitor] 40 mg PO DAILY@219903/14/20 Levothyroxine Sodium [Synthroid] 75 mcg PO DAILY 03/14/20 Potassium Chloride [K-Dur] 40 meq PO DAILYCM 03/14/20 Tamsulosin HCl [Flomax] 0.4 mg PO DAILY@1730 03/14/20 Midodrine HCl [Proamatine] 2.5 mg PO TID #45 tab 03/15/20 levETIRAcetam tablet [Keppra tablet] 500 mg PO BID #60 tab 03/15/20 Amiodarone HCl [Cordarone] 200 mg PO BID #60 tab 03/16/20 Digoxin [Lanoxin] 125 mcg PO DAILY #30 tab 03/16/20 Following Prescrptions Were Given to Patient: Amiodarone HCl [Cordarone] 200 mg PO BID #60 tab Transmission Status: Received by [facility][id number] levETIRAcetam tablet [Keppra tablet] 500 mg PO BID #60 tab Transmission Status: Received by [facility][id number] Digoxin [Lanoxin] 125 mcg PO DAILY #30 tab Transmission Status: Received by [facility][id number] Midodrine HCl [Proamatine] 2.5 mg PO TID #45 tab Transmission Status: Received by [facility][id number] Primary Care Physician: Dariusz Gonzalez Chi, MD [Primary Care Provider] - Please follow up with your Primary Care Physician in: 1 week Please Follow Up With: Garrick Mccoy MD When: 2 weeks Please Follow Up With: Aristeo Lopez MD - OK to see PA or 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 Nicola Marie MD) Syncope (Acute) - Secondary Discharge Diagnosis Chronic Problems: Chronic Problems (Last Updated 03/15/20 @ 13:[address] 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 Patient admitted for syncope for evaluation. Reportedly, sandeep encinas had CPR initiated at the scene because he had no pulse. Not sure what the patient actually had cardiac arrest or he was just syncopal. His EKG revealed no acute hemic changes. CT scan brain showed no acute findings. He did found to have significant orthostatic hypotension. Recently, he was started on midodrine because of hypotension by his PCP but patient did not take his medication. Pacemaker interrogation done and revealed echocardiography with RVR, no other cardiac arrhythmias. Patient received IV fluids and his BUN and creatinine improved. EEG was done because of reported history of loss of bladder control and syncope. EEG was abnormal and indicating possible partial seizure activity. SOC tele-neurology consulted and recommended to load patient with IV Keppra and then to start patient on Keppra 500 mg p.o. twice daily. Also, the recommended to consult cardiology. Cardiology consulted and switched patient from Cardizem to digoxin and amiodarone for A. fib for rate control. Patient has no more symptoms. Vital signs stabilized. Patient discharged home in a stable condition, discharged on amiodarone and digoxin for rate control, discharged on Eliquis for anticoagulation, discharged on Keppra 500 mg p.o. twice daily plan to follow-up with neurology in 2 weeks, follow-up with cardiology in 2 weeks, recommended from with PCP in 1 week. - Physical Exam General: Alert, Oriented x3, Cooperative, No apparent distress. HEENT: Atraumatic, PERRLA, EOMI. Neck: Supple, No JVD, Negative Carotid Bruits, Trachea Midline, Thyroid Normal. Lungs: Clear to auscultation, Normal air movement, No rhonchi, No wheeze, No rales. Cardiovascular: Irregular rate and rhythm, Normal S1, Normal S2, PMI Normal. Abdomen: Bowel Sounds Present, Soft, Non Tender, Non-Distended, No Hepato- splenomegaly. Extremities: No clubbing, No cyanosis, No edema Skin: No rashes, No breakdown Neurological: Neuro grossly intact Vital Signs are stable. This note was generated with [employer] dictation software. It may contain incorrect words, spelling, and punctuation that were not noted in checking the note before signing. - Physical Exam Vitals/I&O's: Vital Signs Temp Pulse Resp BP Pulse Ox 97.8 F 83 18 135/88 H 97 03/16/20 08:58 03/16/20 11:02 03/16/20 08:58 03/16/20 08:58 03/16/20 08:58 Oxygen Delivery Method Room Air Weight: 178 lb 3.2 oz Body Mass Index (BMI) 22.8 Finger Stick Blood Glucose 115 Orthostatic Vital Signs Start: 03/15/20 04:35 Freq: q24h Status: Active Protocol: Activity Type Activity Date Activity User E-Sign Co-Sign Detail Recorded Client Recorded Date Recorded By Document 03/16/20 03:00 MAB [id number] 03/16/20 03:28 MAB 03/16/20 03:00 Orthostatic Vitals Standing -Blood Pressure (90/60-120/80) 98/57 L -Extremity Use Right Arm -Pulse Rate (60-100) 84 Sitting -Blood Pressure (90/60-120/80) 126/68 H -Extremity Use Right Arm -Pulse Rate (60-100) 81 Lying -Blood Pressure (90/60-120/80) 153/94 H -Extremity Use Right Arm -Pulse Rate (60-100) 84 Intake and Output for Last 24 Hours 03/14/20 03/15/20 03/16/20 23:59 23:59 23:59 Intake Total 240 / 240 4142 / 4142 1183.33 / 1183.33 Output Total 800 / 800 2675 / 2675 950 / 950 Balance -560 / -560 1467 / 1467 233.33 / 233.33 Laboratory Results 03/15/20 16:58: POC Glucose 108 03/15/20 21:48: POC Glucose 92 Current Medications Acetaminophen (Tylenol) 650 mg PO Q6H PRN PRN PRN Reason: Pain Scor 1-1010 or Fever Last Admin: 03/16/20 05:18 Dose: 650 mg Documented by: Amiodarone HCl (Cordarone) 200 mg PO BID ON LICENSE OF [facility] Last Admin: 03/16/20 09:00 Dose: 200 mg Documented by: Apixaban (Eliquis) 2.5 mg PO BID ON LICENSE OF [facility] Last Admin: 03/16/20 09:00 Dose: 2.5 mg Documented by: Atorvastatin Calcium (Lipitor) 40 mg PO QHS ON LICENSE OF [facility] Last Admin: 03/15/20 21:50 Dose: 40 mg Documented by: Dextrose (D50w Syringe) 0 gm IV X1 PRN; Protocol PRN Reason: Hypoglycemia Digoxin (Lanoxin) 125 mcg PO DAILY ON LICENSE OF [facility] Last Admin: 03/16/20 09:00 Dose: 125 mcg Documented by: Glucagon () 1 mg IM .X1 PRN PRN Reason: Hypoglycemia Sodium Chloride () 250 mls @ 15 mls/hr IV .[id number] PRN PRN Reason: Saline Flush Sodium Chloride () 250 mls @ 15 mls/hr IV .[id number] PRN PRN Reason: Additional IVPB Infusion Sodium Chloride () 1,000 mls @ 100 mls/hr IV .Q10H ON LICENSE OF [facility] Last Admin: 03/16/20 09:01 Dose: 100 mls/hr Documented by: Levetiracetam (Keppra Tablet) 500 mg PO BID ON LICENSE OF [facility] Last Admin: 03/16/20 09:00 Dose: 500 mg Documented by: Levothyroxine Sodium (Synthroid) 75 mcg PO DAILY@0600 ON LICENSE OF [facility] Last Admin: 03/16/20 05:18 Dose: 75 mcg Documented by: Midodrine (Proamatine) 2.5 mg PO TID ON LICENSE OF [facility] Last Admin: 03/16/20 05:22 Dose: 2.5 mg Documented by: Sodium Chloride () 10 - 40 ml IV UD PRN PRN Reason: SALINE FLUSH Tamsulosin HCl (Flomax) 0.4 mg PO DAILY@1730 ON LICENSE OF [facility] Last Admin: 03/15/20 16:58 Dose: 0.4 mg Documented by: Disposition: Home Minutes spent on discharge:: 29 Patient Condition:: Stable Meaningful Use Info Meaningful Use Diagnoses (Choose all that apply): None applicable OBSV E&M: 71122 Observation care discharge
--- NOTE | 2020-03-16 12:11 | PHA.DC.MC ---
Pharmacy Service has performed discharge medication reconciliation and counseling for this patient. 1. AMIODARONE 200MG PO BID 2. DIGOXIN 125MCG PO DAILY 3. LEVETIRACETAM 500MG PO BID The patient's discharge medication list was reviewed for discrepancies and discrepancies were resolved. Home Medications Latanoprost 0.005% [Xalatan Opthalmic] 1 drp EACH EYE QHS 07/31/18 Acetaminophen [Tylenol] 500 mg PO DAILY PRN PRN 03/14/20 Apixaban [Eliquis] 2.5 mg PO BID 03/14/20 Atorvastatin Calcium [Lipitor] 40 mg PO DAILY@2200 03/14/20 Levothyroxine Sodium [Synthroid] 75 mcg PO DAILY 03/14/20 Potassium Chloride [K-Dur] 40 meq PO DAILYCM 03/14/20 Tamsulosin HCl [Flomax] 0.4 mg PO DAILY@1730 03/14/20 Midodrine HCl [Proamatine] 2.5 mg PO TID #45 tab 03/15/20 levETIRAcetam tablet [Keppra tablet] 500 mg PO BID #60 tab 03/15/20 Amiodarone HCl [Cordarone] 200 mg PO BID #60 tab 03/16/20 Digoxin [Lanoxin] 125 mcg PO DAILY #30 tab 03/16/20 The patient was counseled on the following discharge medications and changes in medications for homegoing were reviewed. The Reason for Use, instructions for use, and potential side effects were reviewed for all new medications. The patient's questions regarding all of their medications were answered. The patient was able to verbally demonstrate an understanding of their discharge medications. Patient counseled by pharmacy consultantMorgan.
== END 2020-03-16 11:19 | disposition home or self-care (01) ==
LOC: ED 14:26 → PCU 03-15 07:13
PROVIDERS: Physician Assistant; Admitting Provider Family Medicine; Emergency Provider Student in an Organized Health Care Education/Training Program; PCP Family Medicine Geriatric Medicine; Visit Provider Hospitalist
DX: I48.20 Chronic atrial fibrillation, unspecified (principal); I95.1 Orthostatic hypotension; I42.0 Dilated cardiomyopathy; I10 Essential (primary) hypertension; E78.5 Hyperlipidemia, unspecified; I25.10 Atherosclerotic heart disease of native coronary artery without angina pectoris; E03.9 Hypothyroidism, unspecified; M19.90 Unspecified osteoarthritis, unspecified site; N40.1 Benign prostatic hyperplasia with lower urinary tract symptoms; R33.8 Other retention of urine; Z79.899 Other long term (current) drug therapy; Z79.01 Long term (current) use of anticoagulants; Z95.0 Presence of cardiac pacemaker; Z87.891 Personal history of nicotine dependence; Z86.73 Personal history of transient ischemic attack (TIA), and cerebral infarction without residual deficits; I47.2 Ventricular tachycardia; G40.909 Epilepsy, unspecified, not intractable, without status epilepticus
CPT/HCPCS: 36415; 70450; 71045; 80048; 82962; 83735; 84443; 84484; 85025; 93005; 95819; 96361; 96365; 99218; 99285; J7030; A4216; G0378

== ENCOUNTER 2020-03-17 10:52 | Observation (INO) | payer MEDICARE, OTHER, SELFPAY ==
[2020-03-14 16:38] VITALS: BMI 22.8
[2020-03-17] VITALS (9 sets, daily range): BP systolic 134–166; BP diastolic 86–153; PULSE 69–112; RESP 16–20; TEMP 36.6; O2SAT 95–99; BMI 23.3; BMI 23.1; BMI 23.2
--- NOTE | 2020-03-17 11:05 | RAD_ITS ---
STUDY: X-RAY CHEST REASON FOR EXAM: Male, 84 years old. SYNCOPE, FALL TECHNIQUE: Single AP portable view of the chest. COMPARISON: Comparison is made with prior study dated 03/14/2020. FINDINGS: EKG electrodes are seen. The lungs are clear and expanded. There is no demonstrated pleural abnormality. Normal size heart. A left-sided unipolar pacemaker is seen. Normal mediastinum and tapan. Normal visualized pulmonary arteries. There is atherosclerotic calcification of the aortic arch with tortuosity. There are diffuse degenerative changes of the visualized thoracic spine. Normal visualized ribs, clavicles, and shoulders. There is no demonstrated abnormality of the visualized soft tissue structures of the upper abdomen. RAD/Chest 1 View (Portable) IMPRESSION: No acute abnormality is seen. Electronically Signed: Allan Cortez, at 12:07 EDT , Service support ,
--- NOTE | 2020-03-17 11:05 | EKG12_ITS ---
Test Reason : AM EKG Blood Pressure : / mmHG Vent. Rate : 115 BPM Atrial Rate : 110 BPM P-R Int : 000 ms QRS Dur : 088 ms QT Int : 350 ms P-R-T Axes : 000 016 021 degrees QTc Int : 484 ms Atrial fibrillation Nonspecific ST abnormality Abnormal ECG When compared with ECG of 17-MAR-2020 11:08, MANUAL COMPARISON REQUIRED, DATA IS UNCONFIRMED Confirmed by VALENTE ALVARADO, VELMA ([id number]), health editor DELMAR PALENCIA ([id number]) on 03/21/2020 2:14:26 PM Referred By: ADELIA Confirmed By:BOUBACAR VICTOR MD
[2020-03-17 11:13] LABS: Absolute Lymphocyte Count 2.14 X10^3/uL (0.83-4.51); Absolute Neutrophil Count 4.7 X10^3/uL (2.0-7.7); Basophil# 0.09 X10^3/uL; Basophil% 1.1 % (0-1); Eosinophil# 0.34 X10^3/uL; Eosinophils% 4.3 % (0-5); Hematocrit 46.3 % (40-54); Hemoglobin 15.5 g/dL (13.0-16.5); Lymphocyte # 2.14 X10^3/ul (4.0); Lymphocyte % 26.9 % (19-41); Mean Corp Hgb Conc 33.5 g/dL (32-36); Mean Corpuscular Hgb 29.6 pg (27.0-32.0); Mean Corpuscular Volume 88.4 fL (80-94); Mean Platelet Vol. 9.8 fl (6.2-12.0); Monocyte# 0.63 X10^3/uL; Monocyte% 7.9 % (0-10); NRBC Flagged by Analyzer 0 % (0-5); Neutrophil # 4.69 X10^3/uL (2.7-7.7); Platelet Count 341 K/mm3 (150-450); RBC Distribution Width CV 14.8 % (11.6-14.6); RBC Distribution Width SD 47.8 fl (35.1-43.9); Red Blood Count 5.24 M/mm3 (4.6-6.2)
--- NOTE | 2020-03-17 11:28 | CT_ITS ---
STUDY: CT BRAIN WITHOUT CONTRAST REASON FOR EXAM: Male, 84 years old. PT STATED FALL TODAY X 2, HX DEMENTIA, CARDIAC ARREST LAST WEEK WITH COMPRESSIONS, BRAIN SURGERY FROM PREVIOUS BLEED RADIATION DOSAGE (If Supplied By Facility): CTDIvol = ( 44.99 ) mGy, DLP = ( 812.98 ) mGycm TECHNIQUE: Transaxial CT imaging of the brain was performed without administration of intravenous contrast material. Individualized dose optimization techniques were used for this CT. COMPARISON: Comparison is made with prior examination dated 03/14/2020. FINDINGS: Normal soft tissue structures. The patient is status post right frontal and right parietal craniotomy. There is mild cerebral atrophy with widening of the extra-axial spaces and ventricular dilatation. There are areas of decreased attenuation within the white matter tracts of the supratentorial brain, consistent with microvascular disease changes. There are small punctate calcifications of the basal ganglia which are seen in the aging brain as a normal variant. Normal brainstem. There is mild cerebellar atrophy. There is no intracranial hemorrhage. There are no findings of an acute ischemic infarction. Atherosclerotic plaque formation of the cavernous portions of the internal carotid arteries bilaterally. Normal visualized paranasal sinuses. CT/Brain/Head without Contrast IMPRESSION: Chronic involutional changes of the brain. Stable examination. Electronically Signed: Allan Cortez, at 12:12 EDT , Service support ,
--- NOTE | 2020-03-17 11:28 | RAD_ITS ---
STUDY: X-RAY - RIGHT HAND REASON FOR EXAM: Male, 84 years old. FALL, PAIN TECHNIQUE: 3 view(s) of the hand. COMPARISON: None. FINDINGS: Normal radiocarpal articulation. Normal distal radioulnar joint. Normal visualized carpal bones. Normal carpal articulations There is degenerative arthrosis of the carpometacarpal (CMC) articulation of the thumb. Normal second through fifth carpometacarpal joints. Normal metacarpi. There is degenerative arthrosis of the metacarpophalangeal (MCP) joints. There is degenerative arthrosis of the interphalangeal joint of the thumb with articular joint space narrowing. Normal proximal and distal phalanges of the thumb. There is degenerative arthrosis of the metacarpophalangeal (MCP) joints. There is diffuse articular joint space narrowing of the proximal and distal interphalangeal joints of the second through fifth fingers, but without erosive changes or periarticular soft tissue swelling. Normal phalanges of the second through fifth fingers. Soft tissue swelling. RAD/Hand Min 3 Views IMPRESSION: Degenerative joint disease of the hand and wrist, as described above. Electronically Signed: Allan Cortez, at 12:10 EDT , Service support ,
--- NOTE | 2020-03-17 11:28 | CT_ITS ---
STUDY: CT CERVICAL SPINE WITHOUT CONTRAST REASON FOR EXAM: Male, 84 years old. PT STATED FALL TODAY X 2, HX DEMENTIA, CARDIAC ARREST LAST WEEK WITH COMPRESSIONS, BRAIN SURGERY FROM PREVIOUS BLEED RADIATION DOSAGE (If Supplied By Facility): CTDIvol = ( 20.33 ) mGy, DLP = ( 524.43 ) mGycm TECHNIQUE: High resolution transaxial imaging was performed without contrast material. Sagittal and coronal images were reconstructed. Individualized dose optimization techniques were used for this CT. COMPARISON: Comparison is made with prior examination dated 12/26/2019. FINDINGS: Normal craniovertebral junction. Normal anterior atlantoaxial articulation. Stable appearance of the fracture at the base of the odontoid. There is straightening of the normal cervical lordosis. Normal vertebral bodies and posterior osseous elements. C2-3: Normal endplates. Normal disc height and morphology. Facet joint hypertrophy with bilateral neural foraminal stenosis. C3-4: Stable minimal anterior listhesis of C3 on C4 most likely secondary to the facet joint hypertrophy and osteoarthritis. Bilateral neural foraminal stenosis. C4-5: Minimal anterior listhesis of C3-4 on C5. Facet joint osteoarthritis. Uncovertebral arthrosis. C5-6: Marked degree of disc space narrowing. Facet joint osteoarthritis and hypertrophy worse on the right side with right neural foraminal stenosis. C6-7: Marked degree of disc space narrowing. Facet joint osteoarthritis and hypertrophy. Atherosclerotic calcification of the carotid bifurcations bilaterally. CT/Spine Cervical without Contras IMPRESSION: Multilevel degenerative changes, as described above. Stable fracture at the base of the dens. There is been no change since prior study. Electronically Signed: Allan Cortez, at 12:17 EDT , Service support ,
[2020-03-17 11:29] LABS: Anion Gap 6 (5-15); BUN 16 mg/dL (7-18); BUN/Creat Ratio 12.9 RATIO (10-20); Calcium,Total 8.6 mg/dL (8.5-10.1); Chloride 110 mmol/L (98-107); Creatinine, Serum 1.24 mg/dL (0.70-1.30); EST Glomerular Filtration Rate 59 mL/min (>60); Est Glom Filt Rate - Afr Amer 72 mL/min (>60); Estimated Creatinine Clearance 52.48 ml/min; Glucose 110 mg/dL (74-106); Sodium Level 139 mmol/L (136-145)
--- NOTE | 2020-03-17 11:32 | ED.VIS.GEN ---
History of Present Illness Chief Complaint: Syncope Informant: Patient, Family Narrative: Patient is an 84-year-old male who presents to the emergency department for syncopal episode. He states that he was walking to the kitchen. He started to make meal whenever he ended up passing out. He does not really remember the event. Only lasted for a few seconds per the family. He did strike his head although he does not recall this. He has absolutely no symptoms at time of arrival to the emergency department. No headache, vision changes. No chest pain, shortness of breath or heart palpitations. He does have right hand pain which he thinks he fell on. Otherwise no neck or back pain. No other injury to other extremities. He does have a history of atrial fibrillation and is constantly in this. He is anticoagulated with Eliquis. Of note patient did have CPR performed on him earlier this week whenever he was at the gym and became unresponsive. They are not sure if he actually lost a pulse or not. He had CPR for 4 minutes. He was seen in the hospital and recently discharged yesterday for this. He denies any recent illnesses including any cough, cold, congestion. No fevers or chills. No vomiting or diarrhea. No urinary symptoms. He states that they are adjusting his medications for the syncopal episodes. He did have his Cardizem recently discontinued. He is on amiodarone and digoxin. 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 Uncle CAD (coronary artery disease) Sudden cardiac Myocardial infarction Other Heart disease Family History: Reports: No pertinent history Paternal Family History: Family History (Last Reviewed 03/14/20 @ 16:20 by JESSEE Campos) Father CAD (coronary artery disease) Myocardial infarction Sudden cardiac Mother No problems noted. Uncle CAD (coronary artery disease) Sudden cardiac Myocardial infarction Other Heart disease Family History: Reports: - - father had mi at age 69 Review of Systems All systems negative except as indicated General: Denies: Chills, Fever, Sweats Eyes: Denies: Visual changes - bilaterally, Diplopia ENT: Denies: Rhinorrhea, Sore throat Cardiovascular: Denies: Chest pain, Palpitations Respiratory: Denies: Dyspnea, Cough, Dyspnea on exertion Gastrointestinal: Denies: Abdominal pain, Nausea, Vomiting, Diarrhea, Melena Genitourinary: Denies: Dysuria, Hematuria, Frequency Musculoskeletal: Denies: Back pain, Extremity Pain - Right hand Skin: Denies: Rash, Wounds Neurological: Denies: Headache, Weakness, Numbness Physical Exam Vital Signs/Narrative: Vital Signs Temp Pulse Resp BP Pulse Ox 03/17/20 10:53 97.8 F 92 20 H 139/97 H 98 Inital Vital Signs reviewed: Yes General: Well nourished, Well developed, No Acute Distress Head: Normocephalic, Atraumatic Eyes: Perrl, EOMI ENT: Moist mucous membranes, No rhinorrhea Neck: Supple, Nontender Cardiovascular: Regular rate, No murmurs, Irregular Respiratory: No distress, CTA bilaterally, Chest nontender Abdomen: Soft, Nontender, Nondistended Back: Nontender, Normal Inspection. Negative for: Spinal tenderness Extremities: Nontender, No edema, - - Palmar aspect of hand is erythematous and swollen. No obvious deformity. 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 Sensation intact. Capillary refill brisk. Skin: Normal color, No rash Neurological: Alert, Oriented x3, Cranial nerves II-XII grossly intact, Normal Strength, Normal Sensation Psychological: Normal affect, Normal Mood Diagnostic/Tx/Re-eval - EKG Initial EKG Interpretation: - - Rate of 92 bpm and irregularly irregular rhythm. Normal intervals. Normal axis. No ST elevations or depressions appreciated. No T wave abnormalities. - Medical Decision Making Patient presents to the emergency department for syncopal episode. He has been having these more frequently. He did injure his hand at the fall but denies any other symptoms currently. Upon arrival to the emergency department he is in atrial fibrillation but rate is controlled. He is not a chest pain or shortness of breath. Will obtain basic lab work along with imaging. Lab work did not reveal any significant acute abnormality. No significant anemia. Digoxin level was actually low. He has been in A. fib but rates have been well controlled. Is been asymptomatic throughout ED stay. Given the fact he is having these repeat syncopal symptoms I do feel better bring the patient into the hospital. He did have a full work-up already. The family does want him to go through a rehab program as she does not feel comfortable taking him home at this time. The patient is agreeable with this plan. ED Disposition - Plan for ED Patient: Disposition: Acute Care Hospital [facility] Diagnosis: Syncope and collapse, Atrial fibrillation
[2020-03-17 13:19] LABS: Digoxin Level 0.37 ng/mL (0.80-2.00)
--- NOTE | 2020-03-17 14:28 | NURSING ---
PCU SYNCOPE OBS WHITE
--- NOTE | 2020-03-17 14:52 | PCM.HP.STD ---
Problem List (1) Syncope and collapse Status: Acute (2) Atrial fibrillation Status: Chronic Qualifiers: Atrial fibrillation type: longstanding persistent Qualified Code(s): I48.11 - Longstanding persistent atrial fibrillation (3) TIA (transient ischemic attack) Status: Chronic (4) Chronic a-fib Status: Chronic (5) Ventricular tachycardia Status: Chronic (6) Cardiomyopathy, dilated, nonischemic Status: Chronic (7) Atherosclerotic heart disease of kaibab coronary artery without angina pectoris Status: Chronic Qualifiers: [place] vs. transplanted heart: kaibab heart Qualified Code(s): I25.10 - Atherosclerotic heart disease of kaibab coronary artery without angina pectoris Comment: [id number] LAD 09/21/2004 (8) History of coronary artery stent placement Status: Chronic Comment: [id number]-Exvc LAD 09/21/2004 (9) Presence of permanent cardiac pacemaker Status: Chronic Comment: Permanent Pacemaker insertion, single chamber 10/17/15, [employer] (10) Essential (primary) hypertension Status: Chronic (11) Hyperlipidemia Status: Chronic Qualifiers: Hyperlipidemia type: pure hypercholesterolemia Qualified Code(s): E78.00 - Pure hypercholesterolemia, unspecified; E78.0 - Pure hypercholesterolemia (12) Orthostatic hypotension Status: Chronic History of Present Illness Date of Admission: 03/17/20 Chief Complaint: Recurrent syncopal event The patient is a 84 y/o M w/ PMHx: Dilated nonischemic cardiomyopathy, Chronic atrial fibrillation, HTN, HLD, Hx tachy/rosa syndrome s/p pacemaker status, Suspected underlying dementia unclear type without behavioral disturbance history recently discharged on 02/29/20 with evaluation for atrial fibrillation with RVR with subtherapeutic INR with TIA with suspected viral gastroenteritis with electrolyte disturbances and noted urinary retention requiring addition of Flomax and Michael catheter placement with transition off of beta-gualberto therapy at that time to Cardizem and initiation of newer oral anticoagulation with unimpressive echocardiogram and brain CT demonstrating atrophy therefore patient discharged to home. He re-presented on 03/14/20 and remained until discharge on 03/16/20 following syncopal event with therapy with onset of lightheadedness and dizziness, given CPR at that time for concern for lack of pulse but not suspected actual cardiac arrest with diagnosis during admission given history of release of urine remarkable EEG with initiation of keppra for seizure activity and ongoing orthostatic hypotension with encouraged continuation of his recently started midodrine with episode of NSVT with atrial fibrillation with RVR started on digoxin and amiodarone with recommendation for placement at that time which was declined who now returns to the [facility] ED on 03/17/20 with recurrent syncopal event while in his kitchen, fell and hit his head, noted LOC lasted seconds only with no reported seizure activity evident per family (no tongue bitting, loss of bowel or bladder) prompting ED return for now placement following evaluation. Patient denies any recent sent lightheadedness or dizziness or any chest pain or dyspnea. He did not take his a.m. medications per his daughter's report. 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 Past Medical History Past Medical History (Chronic Problems): Chronic Problems (Last Updated 03/16/20 @ 11:[address] 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 current use of anticoagulant (Chronic) TIA (transient ischemic attack) (Chronic) Chronic a-fib (Chronic) Ventricular tachycardia (Chronic) Cardiomyopathy, dilated, nonischemic (Chronic) Atherosclerotic heart disease of kaibab coronary artery without angina pectoris (Chronic) [id number] LAD 09/21/2004 History of coronary artery stent placement (Chronic 09/21/04) [id number] LAD 09/21/2004 Longstanding persistent atrial fibrillation (Chronic) 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) Permanent Pacemaker insertion, single chamber 10/17/15, [employer] Essential (primary) hypertension (Chronic) Hyperlipidemia (Chronic) Bundle branch block, right (Chronic) Medical History: Medical History (Last Updated 03/16/20 @ 11:[address] Nicola Marie MD) Cardiomyopathy, dilated, nonischemic (Chronic) I42.0 Atherosclerotic heart disease of kaibab coronary artery without angina pectoris (Chronic) I25.10 [id number] LAD 09/21/2004 Longstanding persistent atrial fibrillation (Chronic) I48.11 Essential (primary) hypertension (Chronic) I10 Hyperlipidemia (Chronic) E78.5 Bundle branch block, right (Chronic) I45.10 Glaucoma H40.9 History of 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 Onset Date: 09/13/08 Z86.79 09/13/2008 Hypothyroidism E03.9 Osteoarthritis M19.90 Lower GI bleed K92.2 Allergies hydrochlorothiazide Adverse Reaction (Intermediate, Verified 03/17/20 11:02) syncope Home Medications: Ambulatory Orders Medication Instructions Recorded Latanoprost 0.005% [Xalatan 1 drp EACH EYE QHS 07/31/18 Opthalmic] Acetaminophen [Tylenol] 500 mg PO DAILY PRN PRN 03/14/20 Apixaban [Eliquis] 2.5 mg PO BID 03/14/20 Atorvastatin Calcium [Lipitor] 40 mg PO DAILY@2200 03/14/20 Levothyroxine Sodium [Synthroid] 75 mcg PO DAILY 03/14/20 Potassium Chloride [K-Dur] 40 meq PO DAILYCM 03/14/20 Tamsulosin HCl [Flomax] 0.4 mg PO DAILY@1730 03/14/20 levETIRAcetam tablet [Keppra 500 mg PO BID #60 tab 03/15/20 tablet] Amiodarone HCl [Cordarone] 200 mg PO BID #60 tab 03/16/20 Digoxin [Lanoxin] 125 mcg PO DAILY #30 tab 03/16/20 Midodrine HCl 2.5 mg PO TID 03/17/20 Surgical History: Surgical History (Last Updated 03/16/20 @ 11:[address] Nicola Marie MD) History of coronary artery stent placement (Chronic) Onset Date: 09/21/04 Z95.5 [id number] LAD 09/21/2004 Presence of permanent cardiac pacemaker (Chronic) Onset Date: 10/17/15 Z95.0 Permanent Pacemaker insertion, single chamber 10/17/15, [employer] History of bilateral cataract extraction Z98.41, Z98.42 History of bilateral knee replacement Z96.653 06/22/2014 History of craniotomy Onset Date: 09/13/08 Z98.890 09/13/08 for 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 History of radiofrequency ablation procedure for cardiac arrhythmia Z98.890 Surgical History: cataract, herniorrhaphy, pacemaker implantation, total knee arthroplasty, - - Neurosurgery for traumatic intracranial bleed 10 years ago or more Psychiatric History: No pertinent psych hx Lives: With Family Smoking Status: Former smoker Tobacco Use: Non-smoker Alcohol: None Drugs: None - *Family History Maternal Family History: Family History (Last Reviewed 03/14/20 @ 16:20 by JESSEE Campos) Father CAD (coronary artery disease) Myocardial infarction Sudden cardiac Mother No problems noted. Uncle CAD (coronary artery disease) Sudden cardiac Myocardial infarction Other Heart disease History Items: - - Denies any market maternal family history including heart disease, diabetes or cancer. Paternal Family History: Family History (Last Reviewed 03/14/20 @ 16:20 by JESSEE Campos) Father CAD (coronary artery disease) Myocardial infarction Sudden cardiac Mother No problems noted. Uncle CAD (coronary artery disease) Sudden cardiac Myocardial infarction Other Heart disease History Items: High Cholesterol, Heart Disease, Hypertension, - - father had mi at age 69 Review of Systems Constitutional: Reports: Weakness, Fatigue. Denies: Anorexia, Chills, Fever, Malaise, Weight Change HEENT: Denies: Head Aches, Sinus Congestion, Sinus Drainage Cardiovascular: Reports: Chest Pain. Denies: Chest Pressure, Chest Tightness, Light Headedness, Orthopnea, Palpitations, Syncope Respiratory: Denies: Cough, Shortness of Breath, Shortness of breath at rest, Shortness of breath upon exertion, Sputum production Gastrointestinal: Denies: Abdominal Pain, Nausea, Vomiting Genitourinary: Denies: Dysuria Musculoskeletal: Reports: Joint Pain. Denies: Joint Tenderness Skin: Denies: Rash, Wounds Neurological: Reports: Confusion. Denies: Focal weakness, Numbness, Tingling Psychiatric: Denies: Anxiety, Depression, Homicidal Ideations, Suicidal Ideations Hematologic/ Lymphatic: Reports: Easy Bruising, Easy Bleeding VTE Information - Inpt Only VTE Present on Admission: No VTE Mechan Device Prophylaxis: SCD's VTE Pharm Prophylaxis ordered?: Yes Patient Problems: Active and Suspected Problems (Last Updated 03/16/20 @ 11:[address] Nicola Marie MD) Syncope and collapse (Acute) Subjective: Seated upright in the ED bed, NAD, mildly irritable. Objective: Physical Examination: General: awake, alert, oriented x [address], year, recent events but obvious confusion with recent events, remains cooperative although initially irritable, seated upright in the ED bed in no apparent distress. Skin: normal color, turgor, no icterus, cyanosis. HEENT: AT/NC, EOMI, PERRLA, MMM, no carotid bruits or JVD noted. Lungs: CTA bilaterally, moderate effort, moderate decrease BL bases, no rales, ronchi or wheezing. Heart: Irregular/paced; no gallop, rub audible. Abdomen: soft, NTTP, ND, normal BS, no HSM. Extremities: no cyanosis, clubbing, or edema. Neurological: patient awake, alert, oriented as noted; cognitive function appears baseline intact but underling likely dementia; pupils equally reactive to light and accomodation; cranial nerves II-XII grossly normal, moving all 4 extremities, no focal deficits, strength moderately globally decreased. Psychiatric: affect appears mildly fatigued and irritable to need to be admitted again, otherwise normal, no acute evidence of depressive or anxiety feelings. - Physical Exam Vitals/I&O's: Vital Signs Temp Pulse Resp BP Pulse Ox 97.8 F 99 18 166/100 H 97 03/17/20 10:53 03/17/20 13:41 03/17/20 13:41 03/17/20 13:41 03/17/20 11:48 Oxygen Delivery Method Room Air Weight: 182 lb 1.629 oz Body Mass Index (BMI) 23.3 Finger Stick Blood Glucose 115 Laboratory Results 03/17/20 10:48: WBC 8.0, RBC 5.24, Hgb 15.5, Hct 46.3, MCV 88.4, MCH 29.6, MCHC 33.5, RDW Std Deviation 47.8 H, RDW Coeff of Carolyn 14.8 H, Plt Count 341, MPV 9.8, Immature Gran % (Auto) 0.800, Neut % (Auto) 59.0, Lymph % (Auto) 26.9, Ocean % (Auto) 7.9, Eos % (Auto) 4.3, Baso % (Auto) 1.1 H, Absolute Neuts (auto) 4.7, Absolute Lymphs (auto) 2.14, Nucleated RBC % 0 03/17/20 10:48: Sodium 139, Potassium 4.0, Chloride 110 H, Carbon Dioxide 23.0, Anion Gap 6, BUN 16, Creatinine 1.24, Estim Creat Clear Calc 52.48, Est GFR (MDRD) Af Amer 72, Est GFR (MDRD) Non-Af 59 L, BUN/Creatinine Ratio 12.9, Glucose 110 H, Calcium 8.6, Magnesium 2.0, Troponin I < 0.015 03/17/20 12:15: Digoxin 0.37 L Assessment/Plan All Active Problems (Last Updated 03/16/20 @ 11:[address] Nicola Marie MD) Syncope and collapse (Acute) Syncope (Acute) The patient is a 84 y/o M w/ PMHx: Dilated nonischemic cardiomyopathy, Chronic atrial fibrillation, HTN, HLD, Hx tachy/rosa syndrome s/p pacemaker status, Suspected underlying dementia unclear type without behavioral disturbance history, Recently diagnosed seizure disorder, NSVT, Hx Urinary retention with several recent admissions for seizure activity and syncopal events, recently discharged on 02/29/20 who now returns to the [facility] ED on 03/17/20 with recurrent syncopal event while in his kitchen, fell and hit his head, noted LOC lasted seconds. 1. Recurrent Syncopal Event, Suspected Likely secondary to Orthostatic Hypotension: EKG in ED w/ atrial fibrillation without evidence of acute ischemia, CXR w/ no acute cardiopulmonary findings, initial trop normal, CT head and neck with no acute intracranial findings. Will admit to PCU, place on a monitored bed to assure no acute myocardial infarction with serial cardiac enzymes and EKGs. Will maintain on fall, aspiration and seizure precautions, will obtain admission orthostatic vital signs and repeat in a.m., suspect will be notable, will reconsult PT and OT as well as case management for encouraged to TCU versus acute rehab transition. We will continue Midrin therapy. 2. Seizure disorder: Recent EEG suggestive of seizure activity, will continue recently initiated Keppra twice daily regimen. Maintain on seizure precautions to be cautious. 3. Chronic atrial fibrillation: We will continue patient home amiodarone, digoxin as well as Eliquis given unremarkable CT head and neck. Given patient fall history if ongoing may need to consider discontinuation of his chronic anticoagulant therapy. 4. Hypothyroidism: Continue home synthroid regimen. 5. Recent urinary retention, resolved: We will continue patient Flomax with again encouraged outpatient neurology follow-up. 6. Hyperlipidemia: Continue home statin regimen. 7. Hypertension: Patient with ongoing orthostatic hypotension, now off Cardizem and transitioned as noted amiodarone and digoxin for his concurrent A. fib, PRN hydralazine if necessary. 8. History of tachybradycardia syndrome: Status post pacemaker placement, will repeat interrogation. 9. DVT prophylaxis: SCDs, Eliquis although though if patient continues to have falls may be appropriate to discontinue anticoagulation therapy given risk. 10. CODE status: Patient CARLOS is the patient's daughter and living will is currently in place. Discussed CODE status again including difference between FULL code, DNR-CCA and DNR-CC status. And following discussions about the differences in these status, requested continuation of full CODE STATUS. Advanced Care Planning Face to Face Time: 16 minutes. OBSV E&M: 64268 Initial observation care L3 Procedures: 56653 Advncd Care Plan 30 Min
[2020-03-17] MEDS: Acetaminophen 325 MG Tablet 650 MG PO ×2 (16:52→22:44)
[2020-03-17] MEDS: 0.9% Normal Saline 1,000 ML 100 ML IV ×2 (16:52→22:44)
[2020-03-17] MEDS: Digoxin 125 MCG Tablet PO (17:58)
[2020-03-17] MEDS: levETIRAcetam 500 MG Tablet PO ×2 (17:58→21:23)
[2020-03-17] MEDS: Levothyroxine 75 MCG Tablet PO (18:01)
[2020-03-17] MEDS: Midodrine HCl 5 MG Tablet 2.5 MG PO ×2 (18:02→22:44)
[2020-03-17] MEDS: Tamsulosin HCl 0.4 MG Capsule PO (18:02)
[2020-03-17] MEDS: Atorvastatin Calcium 40 MG Tablet PO (21:23)
[2020-03-17] MEDS: APIXABAN 2.5 MG TABLET PO (21:23)
[2020-03-17] MEDS: Amiodarone 200 MG Tablet PO (21:23)
[2020-03-17] MEDS: Latanoprost 0.005% 1 Bottle 1 DRP EACH EYE (21:25)
[2020-03-18] VITALS (14 sets, daily range): BP systolic 106–161; BP diastolic 66–109; PULSE 66–113; RESP 14–18; TEMP 36.5–37.1; O2SAT 96–98
--- NOTE | 2020-03-18 05:55 | EKG12_ITS ---
Test Reason : SYNCOPE Blood Pressure : / mmHG Vent. Rate : 092 BPM Atrial Rate : 092 BPM P-R Int : 000 ms QRS Dur : 088 ms QT Int : 400 ms P-R-T Axes : 000 013 080 degrees QTc Int : 494 ms Atrial fibrillation Nonspecific T wave abnormality Abnormal ECG Confirmed by BERONICA ALVARADO, MAXWELL ([id number]), associate entertainment editor CATHERINE MATA ([id number]) on 03/22/2020 8:53:32 AM Referred By: MARGIE Confirmed By:MAXWELL LOCO MD
[2020-03-18] MEDS: Acetaminophen 325 MG Tablet 650 MG PO ×2 (06:21→18:59)
[2020-03-18] MEDS: Levothyroxine 75 MCG Tablet PO (06:21)
[2020-03-18] MEDS: Midodrine HCl 5 MG Tablet 2.5 MG PO (06:21)
[2020-03-18 06:48] LABS: Absolute Neutrophil Count 6.1 X10^3/uL (2.0-7.7); Basophil# 0.08 X10^3/uL; Basophil% 0.9 % (0-1); Eosinophil# 0.26 X10^3/uL; Hematocrit 44.3 % (40-54); Hemoglobin 14.9 g/dL (13.0-16.5); Lymphocyte % 17.1 % (19-41); Mean Corp Hgb Conc 33.6 g/dL (32-36); Mean Corpuscular Hgb 29.6 pg (27.0-32.0); Mean Corpuscular Volume 88.1 fL (80-94); Mean Platelet Vol. 9.8 fl (6.2-12.0); Monocyte# 0.79 X10^3/uL; NRBC Flagged by Analyzer 0 % (0-5); Neutrophil # 6.08 X10^3/uL (2.7-7.7); Neutrophil % 69.4 % (47-70); Platelet Count 313 K/mm3 (150-450); RBC Distribution Width CV 14.7 % (11.6-14.6); RBC Distribution Width SD 46.6 fl (35.1-43.9); Red Blood Count 5.03 M/mm3 (4.6-6.2); White Blood Count 8.8 K/mm3 (4.4-11.0)
[2020-03-18 07:06] LABS: ALB/GLOB Ratio 0.5 RATIO (0.9-2.4); AST(SGOT) 32 U/L (15-37); Alanine Aminotransfer ALT/SGPT 19 U/L (16-61); Albumin, Serum 2.2 g/dL (3.2-5.0); Alkaline Phosphatase 112 U/L (45-117); Anion Gap 2 (5-15); BUN 17 mg/dL (7-18); BUN/Creat Ratio 15.6 RATIO (10-20); Calcium,Total 8.2 mg/dL (8.5-10.1); Chloride 113 mmol/L (98-107); Creatinine, Serum 1.09 mg/dL (0.70-1.30); EST Glomerular Filtration Rate 69 mL/min (>60); Est Glom Filt Rate - Afr Amer 83 mL/min (>60); Globulin 4.2 g/dL (2.2-4.2); Glucose 90 mg/dL (74-106); Potassium 4.1 mmol/L (3.5-5.1); Protein, Total 6.4 g/dL (6.4-8.2); Sodium Level 134 mmol/L (136-145)
[2020-03-18] MEDS: Amiodarone 200 MG Tablet PO ×2 (08:37→21:15)
[2020-03-18] MEDS: 0.9% Normal Saline 1,000 ML 100 ML IV ×2 (08:37→18:37)
[2020-03-18] MEDS: levETIRAcetam 500 MG Tablet PO ×2 (08:37→21:15)
[2020-03-18] MEDS: APIXABAN 2.5 MG TABLET PO ×2 (08:37→21:15)
[2020-03-18] MEDS: Digoxin 125 MCG Tablet PO (08:37)
--- NOTE | 2020-03-18 10:38 | CASEMGMT ---
PRITI met with patient, introduced self and role at [facility]. PRITI explained that SW was told they are looking for him to go somewhere for some rehab. He said that was when they couldn't figure out what was wrong with him. SW asked if his daughter would be in today and he said she will. SW told him SW will be back when she gets here. Erinn PINEDA
--- NOTE | 2020-03-18 11:50 | PN_ITS ---
Patient Problems: Active and Suspected Problems (Last Updated 03/16/20 @ 11:[address] Nicola Marie MD) Syncope and collapse (Acute) Objective: Patient is admitted twice this week and 3 times this month. Admitted with sudden onset of syncope while he was eating breakfast. He felt dizzy and then passed out for 30 seconds to 1 minute. When he woke up his right hand was extended painful. He did not had symptoms of postictal confusion, urinary incontinence Last orthostatic sets does not show change in heart rate and blood pressure although it was positive on 03/16 during previous admission Physical exam General: Alert, Oriented x3, Cooperative HEENT: Atraumatic, PERRLA, EOMI, Normocephalic Oral: No Gingival or Mucosal Lesions/ Ulcerations Neck: Supple, No JVD, Negative Carotid Bruits Lungs: Air entry diminished in bilateral lung bases. No crepitation/rhonchi Cardiovascular: Heart rate in 106, irregular rhythm, Normal S1, Normal S2, pansystolic murmur over left lower sternal border Abdomen: Bowel Sounds Present, Soft, Non Tender, Non-Distended : No renal angle tenderness. No suprapubic tenderness. Extremities: Bruising and swelling of right hand. Capillary Refill Less than 3 Seconds Skin: No rashes, No breakdown Musculoskeletal: No Tenderness to Palpation of Joints or Extremities Neurological: Cranial nerves II-XII grossly intact, Deep Tendon Reflexes 2+/4 and Symmetrical, Neuro grossly intact Psych/Mental Status: Normal Affect, Appropriate. Vitals/I&O's: Vital Signs Temp Pulse Resp BP Pulse Ox 97.9 F 68 14 117/93 H 97 03/18/20 08:36 03/18/20 08:37 03/18/20 08:36 03/18/20 08:36 03/18/20 08:36 Oxygen Delivery Method Room Air Weight: 185 lb 6.54 oz Body Mass Index (BMI) 23.1 Finger Stick Blood Glucose 115 Orthostatic Vital Signs Start: 03/17/20 16:38 Freq: q24h Status: Active Protocol: Activity Type Activity Date Activity User E-Sign Co-Sign Detail Recorded Client Recorded Date Recorded By Document 03/17/20 16:38 SIA [id number] 03/17/20 16:46 SIA 03/17/20 16:38 Orthostatic Vitals Standing -Blood Pressure (90/60-120/80) 166/153 H -Extremity Use Right Arm -Pulse Rate (60-100) 73 Sitting -Blood Pressure (90/60-120/80) 156/106 H -Extremity Use Right Arm -Pulse Rate (60-100) 98 Lying -Blood Pressure (90/60-120/80) 150/113 H -Extremity Use Right Arm -Pulse Rate (60-100) 69 Intake and Output for Last 24 Hours 03/16/20 03/17/20 03/18/20 23:59 23:59 23:59 Intake Total 786.67 / 786.67 1903.33 / 1903.33 Output Total 400 / 400 1150 / 1150 Balance 386.67 / 386.67 753.33 / 753.33 Laboratory Results 03/17/20 12:15: Digoxin 0.37 L 03/17/20 19:01: Troponin I < 0.015 03/18/20 06:27: WBC 8.8, RBC 5.03, Hgb 14.9, Hct 44.3, MCV 88.1, MCH 29.6, MCHC 33.6, RDW Std Deviation 46.6 H, RDW Coeff of Carolyn 14.7 H, Plt Count 313, MPV 9.8, Immature Gran % (Auto) 0.600, Neut % (Auto) 69.4, Lymph % (Auto) 17.1 L, [place] % (Auto) 9.0, Eos % (Auto) 3.0, Baso % (Auto) 0.9, Absolute Neuts (auto) 6.1, Absolute Lymphs (auto) 1.50, Nucleated RBC % 0 03/18/20 06:27: Sodium 134 L, Potassium 4.1, Chloride 113 H, Carbon Dioxide 19.0 L, Anion Gap 2 L, BUN 17, Creatinine 1.09, Estim Creat Clear Calc 59.70, Est GFR (MDRD) Af Amer 83, Est GFR (MDRD) Non-Af 69, BUN/Creatinine Ratio 15.6, Glucose 90, Calcium 8.2 L, Total Bilirubin 0.80, AST 32, ALT 19, Alkaline Phosphatase 112, Troponin I < 0.015, Total Protein 6.4, Albumin 2.2 L, Globulin 4.2, Albumin/Globulin Ratio 0.5 L Current Medications Acetaminophen (Tylenol) 650 mg PO Q6H PRN PRN PRN Reason: Pain Score 1-10/Temp > 100.7 F Last Admin: 03/18/20 06:21 Dose: 650 mg Documented by: Al Hydroxide/Mg Hydroxide (Mylanta Ii) 30 ml PO Q6H PRN PRN PRN Reason: Gastric Burning Albuterol Sulfate (Ventolin Aerosols) 2.5 mg INHALATION Q2H PRN PRN PRN Reason: Dyspnea, wheezing Amiodarone HCl (Cordarone) 200 mg PO BID ON LICENSE OF [facility] Last Admin: 03/18/20 08:37 Dose: 200 mg Documented by: Apixaban (Eliquis) 2.5 mg PO BID ON LICENSE OF [facility] Last Admin: 03/18/20 08:37 Dose: 2.5 mg Documented by: Atorvastatin Calcium (Lipitor) 40 mg PO DAILY@2200 ON LICENSE OF [facility] Last Admin: 03/17/20 21:23 Dose: 40 mg Documented by: Dextrose (D50w Syringe) 0 gm IV X1 PRN; Protocol PRN Reason: Hypoglycemia Digoxin (Lanoxin) 125 mcg PO DAILY ON LICENSE OF [facility] Last Admin: 03/18/20 08:37 Dose: 125 mcg Documented by: Glucagon () 1 mg IM .X1 PRN PRN Reason: Hypoglycemia Guaifenesin (Robitussin) 20 ml PO Q4H PRN PRN PRN Reason: COUGH Hydralazine HCl (Apresoline Iv) 10 mg IV Q4H PRN PRN PRN Reason: SBP > 160 Sodium Chloride () 1,000 mls @ 100 mls/hr IV .Q10H ON LICENSE OF [facility] Last Infusion: 03/18/20 11:22 Dose: 100 mls/hr Documented by: Latanoprost (Xalatan Opthalmic) 1 drop EACH EYE QHS ON LICENSE OF [facility] Last Admin: 03/17/20 21:25 Dose: 1 drop Documented by: Levetiracetam (Keppra Tablet) 500 mg PO BID ON LICENSE OF [facility] Last Admin: 03/18/20 08:37 Dose: 500 mg Documented by: Levothyroxine Sodium (Synthroid) 75 mcg PO DAILY@0600 ON LICENSE OF [facility] Last Admin: 03/18/20 06:21 Dose: 75 mcg Documented by: Magnesium Hydroxide (Milk Of Magnesia) 30 ml PO DAILY PRN PRN PRN Reason: Constipation Melatonin (Melatonin) 3 mg PO QHS PRN PRN PRN Reason: INSOMNIA Midodrine (Proamatine) 2.5 mg PO TID ON LICENSE OF [facility] Last Admin: 03/18/20 06:21 Dose: 2.5 mg Documented by: Morphine Sulfate () 2 mg IV Q3H PRN PRN PRN Reason: Pain Score 6-10/10 Nitroglycerin (Nitrostat) 0.4 mg SUBLINGUAL Q5M PRN PRN Reason: CARDIAC/CHEST PAIN Ondansetron HCl (Zofran) 4 mg IV Q8H PRN PRN PRN Reason: NAUSEA/VOMITING Oxycodone HCl (Oxyir) 5 mg PO Q4H PRN PRN PRN Reason: Pain Score 4-5/10 Potassium [facility] Last Admin: 03/18/20 08:39 Dose: 40 meq Documented by: Prochlorperazine Edisylate (Compazine Iv) 5 mg IV Q4H PRN PRN PRN Reason: Breakthrough Nausea/Vomiting Psyllium Hydrophilic Mucilloid (Metamucil) 1 packet PO DAILY PRN PRN PRN Reason: Constipation Senna/Docusate Sodium (Senokot-S, Richa-Colace) 2 tablet PO BID PRN PRN PRN Reason: Constipation Sodium Chloride () 10 - 40 ml IV UD PRN PRN Reason: SALINE FLUSH Tamsulosin HCl (Flomax) 0.4 mg PO DAILY@1730 ON LICENSE OF [facility] Last Admin: 03/17/20 18:02 Dose: 0.4 mg Documented by: Throat Lozenges (Cepacol Sore Throat Lozenge) 1 lozenge MUCOUS MEM Q2H PRN PRN PRN Reason: SORE THROAT STROKE Vital Signs/Narrative: Vital Signs Temp Pulse Resp BP Pulse Ox 03/18/20 08:37 68 03/18/20 08:36 97.9 F 66 14 117/93 H 97 Medical Necessity - Tobacco Use Smoking Status: Former smoker Tobacco Use: Non-smoker Assessment/Plan All Active Problems (Last Updated 03/16/20 @ 11:[address] Nicola Marie MD) Syncope and collapse (Acute) Syncope (Acute)
[2020-03-18] MEDS: Digoxin 250 MCG/ML Ampul IV (13:00)
[2020-03-18] MEDS: Midodrine HCl 5 MG Tablet PO (13:00)
--- NOTE | 2020-03-18 13:25 | CASEMGMT ---
Addendum entered by Erinn Solitario 03/18/20 15:28: SW printed out [facility]'s COVID visitation policy and gave it to patient's daughter. Erinn PINEDA Original Note: SW spoke with patient's daughter as there was mention of patient going to rehab. Patient's daughter said the physician mentioned transferring patient to [facility]. She said if he is transferred she would like to know their visitation policy. SW told her SW will check with physician and if he is in fact going to transfer him we will find out [facility]'s visitation policy. Erinn PINEDA
--- NOTE | 2020-03-18 16:24 | DS.PCM_ITS ---
Discharge Date and Diagnosis - Problem List Patient Problems: Active and Suspected Problems (Last Updated 03/16/20 @ 11:[address] Nicola Marie MD) Syncope and collapse (Acute) Date of Admission: 03/17/20 Date of Discharge: 03/18/20 - Primary Discharge Diagnosis Acute Problems: Active Problems (Last Updated 03/16/20 @ 11:[address] Nicola Marie MD) Syncope and collapse (Acute) - Secondary Discharge Diagnosis Chronic Problems: Chronic Problems (Last Updated 03/16/20 @ 11:[address] 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 fib on Eliquis and other multiple comorbidities with recurrent admission, 3 times this month's admitted with syncope episode. Patient passed out for 30 seconds to 1 minute and fell on his right side with extended hand. Patient denies recall hitting head but as per ER physician he hit his head. CT head and CT C-spine does not show acute change. Patient was admitted to PCU, telemetry floor. Serial troponin enzymes negative. Patient had extensive work-up during previous admission including echo, EEG, neurology consult and cardiology consult. During admission on 03/14 for syncope, he had EEG which was reported abnormal with a right frontocentraltemporal slowing suggestive of focal cerebral dysfunction presence of sharp waves suggestive of increased risk for partial seizure. On that suspicion, he was started on Keppra 500 mg twice daily. This time, discussed with blow pit helper Dr. nair. We agreed the nature of syncope is consistent with cardiac syncope. Orthostatic did not show significant change in BP or heart rate. On midodrine 2.5 mg 3 times daily. There is mild increase in blood pressure probably secondary to midodrine for which losartan 50 mg 1 dose given. He had all the work-up done therefore needs EP study to further delineate conduction abnormality. Transfer call was made to [facility] and patient is being transferred under the care of Dr. Dustin Solano. He has other multiple comorbidities which includes sick sinus syndrome, chronic A. fib on Eliquis, amiodarone and digoxin. Digoxin level was low at 0.37 and 250 mcg of IV digoxin was given with baseline p.o. 125 mcg daily. Electrolytes are in normal limit. Other multiple comorbidities include hypothyroidism, recent urinary retention on Flomax probably second to BPH, hypertension, dyslipidemia Full code. Discharge medication reconciliation done. Discharge follow-up instructions completed. Discharge process discussed with the patient and all questions were answered to patient's satisfaction. Patient transferred to [facility]. Total time spent, exact 35 minutes on discharge meds reconciliation, examination, coordination of care with nurses and ancillary staff, review of imaging and blood test and discussion with the patient on follow-up instructions Clinical Impression(s) from Imaging Studies Chest X-Ray 03/17/20 11:05 IMPRESSION: No acute abnormality is seen. Brain CT 03/17/20 11:28 IMPRESSION: Chronic involutional changes of the brain. Stable examination. Cervical Spine CT 03/17/20 11:28 IMPRESSION: Multilevel degenerative changes, as described above. Stable fracture at the base of the dens. There is been no change since prior study. Hand X-Ray 03/17/20 11:28 IMPRESSION: Degenerative joint disease of the hand and wrist, as described above. 2D echo 02/27/2020 Interpretation Summary Normal LV size. Left ventricular systolic function is normal. The estimated ejection fraction is 55 %. Mild (1+) tricuspid valve insufficiency. The left atrium is mildly enlarged. The right atrium is moderately enlarged. Patient Problems: Active and Suspected Problems (Last Updated 03/16/20 @ 11:[address] Nicola Marie MD) Syncope and collapse (Acute) Objective: Patient is admitted twice this week and 3 times this month. Admitted with sudden onset of syncope while he was eating breakfast. He felt dizzy and then passed out for 30 seconds to 1 minute. When he woke up his right hand was extended, twisted painful. He did not had symptoms of postictal confusion, urinary incontinence or other symptoms of seizure episode Last orthostatic sets does not show change in heart rate and blood pressure although it was positive on 03/16 during previous admission Physical exam General: Alert, Oriented x3, Cooperative HEENT: Atraumatic, PERRLA, EOMI, Normocephalic Oral: No Gingival or Mucosal Lesions/ Ulcerations Neck: Supple, No JVD, Negative Carotid Bruits Lungs: Air entry diminished in bilateral lung bases. No crepitation/rhonchi Cardiovascular: Heart rate in 106, irregular rhythm, Normal S1, Normal S2, pansystolic murmur over left lower sternal border. front desk monitor shows sinus rhythm. Has pacemaker Abdomen: Bowel Sounds Present, Soft, Non Tender, Non-Distended : No renal angle tenderness. No suprapubic tenderness. Extremities: Bruising and swelling of right hand. Capillary Refill Less than 3 Seconds Skin: No rashes, No breakdown Musculoskeletal: No Tenderness to Palpation of Joints or Extremities Neurological: Cranial nerves II-XII grossly intact, Deep Tendon Reflexes 2+/4 and Symmetrical, Neuro grossly intact Psych/Mental Status: Normal Affect, Appropriate. - Physical Exam Vitals/I&O's: Vital Signs Temp Pulse Resp BP Pulse Ox 98.2 F 103 H 16 161/109 H 97 03/18/20 15:30 03/18/20 15:30 03/18/20 15:30 03/18/20 15:30 03/18/20 15:30 Oxygen Delivery Method Room Air Weight: 185 lb 6.54 oz Body Mass Index (BMI) 23.1 Finger Stick Blood Glucose 115 Orthostatic Vital Signs Start: 03/17/20 16:38 Freq: q24h Status: Active Protocol: Activity Type Activity Date Activity User E-Sign Co-Sign Detail Recorded Client Recorded Date Recorded By Document 03/17/20 16:38 SIA [id number] 03/17/20 16:46 SIA 03/17/20 16:38 Orthostatic Vitals Standing -Blood Pressure (90/60-120/80) 166/153 H -Extremity Use Right Arm -Pulse Rate (60-100) 73 Sitting -Blood Pressure (90/60-120/80) 156/106 H -Extremity Use Right Arm -Pulse Rate (60-100) 98 Lying -Blood Pressure (90/60-120/80) 150/113 H -Extremity Use Right Arm -Pulse Rate (60-100) 69 Intake and Output for Last 24 Hours 03/16/20 03/17/20 03/18/20 23:59 23:59 23:59 Intake Total 786.67 / 786.67 1903.33 / 1903.33 Output Total 400 / 400 1150 / 1150 Balance 386.67 / 386.67 753.33 / 753.33 Laboratory Results 03/17/20 19:01: Troponin I < 0.015 03/18/20 06:27: WBC 8.8, RBC 5.03, Hgb 14.9, Hct 44.3, MCV 88.1, MCH 29.6, MCHC 33.6, RDW Std Deviation 46.6 H, RDW Coeff of Carolyn 14.7 H, Plt Count 313, MPV 9.8, Immature Gran % (Auto) 0.600, Neut % (Auto) 69.4, Lymph % (Auto) 17.1 L, [place] % (Auto) 9.0, Eos % (Auto) 3.0, Baso % (Auto) 0.9, Absolute Neuts (auto) 6.1, Absolute Lymphs (auto) 1.50, Nucleated RBC % 0 03/18/20 06:27: Sodium 134 L, Potassium 4.1, Chloride 113 H, Carbon Dioxide 19.0 L, Anion Gap 2 L, BUN 17, Creatinine 1.09, Estim Creat Clear Calc 59.70, Est GFR (MDRD) Af Amer 83, Est GFR (MDRD) Non-Af 69, BUN/Creatinine Ratio 15.6, Glucose 90, Calcium 8.2 L, Total Bilirubin 0.80, AST 32, ALT 19, Alkaline Phosphatase 112, Troponin I < 0.015, Total Protein 6.4, Albumin 2.2 L, Globulin 4.2, Albumin/Globulin Ratio 0.5 L Current Medications Acetaminophen (Tylenol) 650 mg PO Q6H PRN PRN PRN Reason: Pain Score 1-10/Temp > 100.7 F Last Admin: 03/18/20 06:21 Dose: 650 mg Documented by: Al Hydroxide/Mg Hydroxide (Mylanta Ii) 30 ml PO Q6H PRN PRN PRN Reason: Gastric Burning Albuterol Sulfate (Ventolin Aerosols) 2.5 mg INHALATION Q2H PRN PRN PRN Reason: Dyspnea, wheezing Amiodarone HCl (Cordarone) 200 mg PO BID [facility] Last Admin: 03/18/20 08:37 Dose: 200 mg Documented by: Apixaban (Eliquis) 2.5 mg PO BID [facility] Last Admin: 03/18/20 08:37 Dose: 2.5 mg Documented by: Atorvastatin Calcium (Lipitor) 40 mg PO DAILY@2200 [facility] Last Admin: 03/17/20 21:23 Dose: 40 mg Documented by: Dextrose (D50w Syringe) 0 gm IV X1 PRN; Protocol PRN Reason: Hypoglycemia Digoxin (Lanoxin) 125 mcg PO DAILY [facility] Last Admin: 03/18/20 08:37 Dose: 125 mcg Documented by: Glucagon () 1 mg IM .X1 PRN PRN Reason: Hypoglycemia Guaifenesin (Robitussin) 20 ml PO Q4H PRN PRN PRN Reason: COUGH Hydralazine HCl (Apresoline Iv) 10 mg IV Q4H PRN PRN PRN Reason: SBP > 160 Sodium Chloride () 1,000 mls @ 100 mls/hr IV .Q10H [facility] Last Infusion: 03/18/20 11:22 Dose: 100 mls/hr Documented by: Latanoprost (Xalatan Opthalmic) 1 drop EACH EYE QHS [facility] Last Admin: 03/17/20 21:25 Dose: 1 drop Documented by: Levetiracetam (Keppra Tablet) 500 mg PO BID [facility] Last Admin: 03/18/20 08:37 Dose: 500 mg Documented by: Levothyroxine Sodium (Synthroid) 75 mcg PO DAILY@0600 [facility] Last Admin: 03/18/20 06:21 Dose: 75 mcg Documented by: Magnesium Hydroxide (Milk Of Magnesia) 30 ml PO DAILY PRN PRN PRN Reason: Constipation Melatonin (Melatonin) 3 mg PO QHS PRN PRN PRN Reason: INSOMNIA Midodrine (Proamatine) 2.5 mg PO Q8H [facility] Morphine Sulfate () 2 mg IV Q3H PRN PRN PRN Reason: Pain Score 6-10/10 Nitroglycerin (Nitrostat) 0.4 mg SUBLINGUAL Q5M PRN PRN Reason: CARDIAC/CHEST PAIN Ondansetron HCl (Zofran) 4 mg IV Q8H PRN PRN PRN Reason: NAUSEA/VOMITING Oxycodone HCl (Oxyir) 5 mg PO Q4H PRN PRN PRN Reason: Pain Score 4-5/10 Potassium [facility] ([facility] Last Admin: 03/18/20 08:39 Dose: 40 meq Documented by: Prochlorperazine Edisylate (Compazine Iv) 5 mg IV Q4H PRN PRN PRN Reason: Breakthrough Nausea/Vomiting Psyllium Hydrophilic Mucilloid (Metamucil) 1 packet PO DAILY PRN PRN PRN Reason: Constipation Senna/Docusate Sodium (Senokot-S, Richa-Colace) 2 tablet PO BID PRN PRN PRN Reason: Constipation Sodium Chloride () 10 - 40 ml IV UD PRN PRN Reason: SALINE FLUSH Tamsulosin HCl (Flomax) 0.4 mg PO DAILY@1729 [facility] Last Admin: 03/17/20 18:02 Dose: 0.4 mg Documented by: Throat Lozenges (Cepacol Sore Throat Lozenge) 1 lozenge MUCOUS MEM Q2H PRN PRN PRN Reason: SORE THROAT Home Medications: Medications to take at Discharge Latanoprost 0.005% [Xalatan Opthalmic] 1 drp EACH EYE QHS 07/31/18 Acetaminophen [Tylenol] 500 mg PO DAILY PRN PRN 03/14/20 Apixaban [Eliquis] 2.5 mg PO BID 03/14/20 Atorvastatin Calcium [Lipitor] 40 mg PO DAILY@219903/14/20 Levothyroxine Sodium [Synthroid] 75 mcg PO DAILY 03/14/20 Potassium Chloride [K-Dur] 40 meq PO DAILYCM 03/14/20 Tamsulosin HCl [Flomax] 0.4 mg PO DAILY@172903/14/20 levETIRAcetam tablet [Keppra tablet] 500 mg PO BID #60 tab 03/15/20 Amiodarone HCl [Cordarone] 200 mg PO BID #60 tab 03/16/20 Digoxin [Lanoxin] 125 mcg PO DAILY #30 tab 03/16/20 Midodrine HCl 2.5 mg PO TID 03/17/20 Primary Care Physician: Dariusz Gonzalez Chi, MD [Primary Care Provider] - Medical Necessity - Tobacco Use Smoking Status: Former smoker Tobacco Use: Non-smoker Meaningful Use Info Meaningful Use Diagnoses (Choose all that apply): None applicable Inpatient E&M: 62366 Disch Hosp
[2020-03-18] MEDS: Losartan Potassium 50 MG Tablet PO (17:19)
[2020-03-18] MEDS: Tamsulosin HCl 0.4 MG Capsule PO (17:20)
--- NOTE | 2020-03-18 17:53 | NURSING ---
Report given to June at [facility]
--- NOTE | 2020-03-18 20:49 | NURSING ---
Notified daughter Mar ambulance transport delayed, will be here between [phone]. She verbalizes understanding. Notified [facility] ambulance transport delayed, will be here to pick patient up between [phone]. She verbalizes understanding.
[2020-03-18] MEDS: Atorvastatin Calcium 40 MG Tablet PO (21:15)
[2020-03-18] MEDS: Latanoprost 0.005% 1 Bottle 1 DRP EACH EYE (21:16)
--- NOTE | 2020-03-18 23:09 | NURSING ---
Notified daughter Mar transport here now, patient leaving for [facility]. Called [facility] and notified them patient leaving [facility] now.
== END 2020-03-18 23:05 | disposition short-term general hospital (02) ==
LOC: ED 11:56 → PCU 14:41
PROVIDERS: Admitting Provider Family Medicine; Emergency Provider Emergency Medicine; PCP Family Medicine Geriatric Medicine; Visit Provider Internal Medicine
DX: R55 Syncope and collapse (principal); I25.10 Atherosclerotic heart disease of native coronary artery without angina pectoris; I48.11 Longstanding persistent atrial fibrillation; I42.0 Dilated cardiomyopathy; E78.5 Hyperlipidemia, unspecified; I10 Essential (primary) hypertension; E03.9 Hypothyroidism, unspecified; G40.909 Epilepsy, unspecified, not intractable, without status epilepticus; R33.9 Retention of urine, unspecified; Z79.899 Other long term (current) drug therapy; Z79.01 Long term (current) use of anticoagulants; Z95.0 Presence of cardiac pacemaker; Z95.5 Presence of coronary angioplasty implant and graft; Z87.891 Personal history of nicotine dependence
CPT/HCPCS: 36415; 70450; 71045; 72125; 73130; 80048; 80053; 80162; 83735; 84484; 85025; 93005; 96361; 96374; 97162; 97166; 99218; 99285; J7030; A4216; G0378

== ENCOUNTER 2020-03-27 10:51 | Emergency (ER) | payer MEDICARE, OTHER, SELFPAY ==
[2020-03-17 16:09] VITALS: BMI 23.1
[2020-03-27 10:54] VITALS: BP 144/94; PULSE 77; RESP 17; TEMP 36.5; O2SAT 97; BMI 23.1
[2020-03-27 11:00] VITALS: BP 144/94; PULSE 77; RESP 16; TEMP 36.5; O2SAT 97
--- NOTE | 2020-03-27 11:14 | ED.VIS.GEN ---
History of Present Illness Informant: Patient, Family Onset: Today Context: Gradual Onset Timing: Continuous Quality: blood Location: urine Current Severity: Severe Maximum Severity: Severe Worsened by: nothing Relieved by: nothing Associated Symptoms: fatigue Narrative: 84-year-old male with a past medical history of cardiomyopathy, chronic atrial fibrillation, tachybradycardia syndrome, pacemaker, mild dementia presents to emergency department with hematuria. He was discharged from [facility] 3 days ago. He was admitted for syncope versus seizure. In the hospital he was noted to have seizure-like activity on his EEG and was started on Keppra. He had a pacemaker interrogation showing chronic atrial fibrillation with intermittent rapid ventricular response. He was started on amiodarone and digoxin. He was also started on Middaugh drain for orthostatic hypotension. Since being discharged from the hospital he has felt fatigued and tired and then this morning noticed bright red blood in his urine. No blood clots. He is able to empty his bladder. He is not having any pain. He denies any other symptoms of bleeding. He denies any other review of systems Prior similar symptoms: Yes Recent Illness/Hospitalization: Yes <Mick Mckeon - Last Filed: 03/27/20 12:14> <Ulices Pavon - Last Filed: 03/27/20 12:45> Chief Complaint: Complaint Past Medical History Prior records reviewed: Yes Past Medical History: - - Dementia, nonischemic dilated cardiomyopathy, chronic atrial fibrillation, tachybradycardia syndrome, pacemaker, seizure disorder, orthostatic hypotension Surgical History: cataract, herniorrhaphy, pacemaker implantation, total knee arthroplasty, - - Neurosurgery for traumatic intracranial bleed 10 years ago or more Lives: With Family Smoking Status: Former smoker Alcohol: None Drugs: None - Family History Maternal Family History: Family History (Last Reviewed 03/14/20 @ 16:20 by JESSEE Campos) Father CAD (coronary artery disease) Myocardial infarction Sudden cardiac Mother No problems noted. Uncle CAD (coronary artery disease) Sudden cardiac Myocardial infarction Other Heart disease Family History: Reports: - - Denies any market maternal family history including heart disease, diabetes or cancer. Paternal Family History: Family History (Last Reviewed 03/14/20 @ 16:20 by JESSEE Campos) Father CAD (coronary artery disease) Myocardial infarction Sudden cardiac Mother No problems noted. Uncle CAD (coronary artery disease) Sudden cardiac Myocardial infarction Other Heart disease Family History: Reports: High Cholesterol, Heart Disease, Hypertension, - - father had mi at age 69 <Mick Mckeon - Last Filed: 03/27/20 12:14> - Family History Maternal Family History: Family History (Last Reviewed 03/14/20 @ 16:20 by JESSEE Campos) Father CAD (coronary artery disease) Myocardial infarction Sudden cardiac Mother No problems noted. Uncle CAD (coronary artery disease) Sudden cardiac Myocardial infarction Other Heart disease Paternal Family History: Family History (Last Reviewed 03/14/20 @ 16:20 by JESSEE Campos) Father CAD (coronary artery disease) Myocardial infarction Sudden cardiac Mother No problems noted. Uncle CAD (coronary artery disease) Sudden cardiac Myocardial infarction Other Heart disease <Ulices Pavon - Last Filed: 03/27/20 12:45> - Allergies and Home Meds Allergies/Adverse Reactions: Allergies hydrochlorothiazide Adverse Reaction (Intermediate, Verified 03/27/20 10:53) syncope Primary Care Physician: Damir Stanford MD [STAFF PHYSICIAN] - As soon as possible Dariusz Gonzalez Chi, MD [Primary Care Provider] - Review of Systems All systems negative except as indicated General: Reports: Malaise. Denies: Chills, Fever, Subjective, Sweats Eyes: Denies: Visual changes - bilaterally, Diplopia ENT: Denies: Rhinorrhea, Sore throat Cardiovascular: Denies: Chest pain, Palpitations Respiratory: Denies: Dyspnea, Cough, Dyspnea on exertion Gastrointestinal: Denies: Abdominal pain, Nausea, Vomiting, Diarrhea, Melena, Hematochezia Genitourinary: Reports: Hematuria. Denies: Dysuria, Frequency Musculoskeletal: Denies: Back pain, Swelling, Extremity Pain Skin: Denies: Rash, Wounds Neurological: Denies: Headache, Weakness, Numbness <Mick Mckeon - Last Filed: 03/27/20 12:14> Physical Exam Vital Signs/Narrative: Vital Signs Temp Pulse Resp BP Pulse Ox 03/27/20 11:00 97.7 F L 77 16 144/94 H 97 03/27/20 10:54 97.7 F L 77 17 144/94 H 97 Inital Vital Signs reviewed: Yes General: Well nourished, Well developed, No Acute Distress Head: Normocephalic, Atraumatic Eyes: Perrl, EOMI ENT: Moist mucous membranes, No rhinorrhea Neck: Supple, Nontender Cardiovascular: Regular rate, Regular rhythm, No murmurs Respiratory: No distress, CTA bilaterally, Chest nontender Abdomen: Soft, Nontender, Nondistended, Normal bowel sounds : - - Normal inspection of penis and scrotum. No swelling or bruising or redness. Testicles nontender on palpation. No active bleeding is noted. Back: Nontender, Normal Inspection Extremities: Nontender, No edema Skin: Normal color, No rash Neurological: Alert, Oriented x3, Cranial nerves II-XII grossly intact, Normal Strength, Normal Sensation Psychological: Normal affect, Normal Mood <Mick Mckeon - Last Filed: 03/27/20 12:14> Vital Signs/Narrative: Vital Signs Temp Pulse Resp BP Pulse Ox 03/27/20 12:39 81 20 H 158/78 H 97 03/27/20 11:00 97.7 F L 77 16 144/94 H 97 03/27/20 10:54 97.7 F L 77 17 144/94 H 97 <Ulices Pavon - Last Filed: 03/27/20 12:45> Diagnostic/Tx/Re-eval Laboratory Results 03/27/20 03/27/20 03/27/20 11:15 11:20 11:45 WBC 8.4 RBC 4.93 Hgb 14.7 Hct 43.3 MCV 87.8 MCH 29.8 MCHC 33.9 RDW Std Deviation 46.8 H RDW Coeff of Carolyn 14.5 Plt Count 257 MPV 9.6 Immature Gran % (Auto) 1.100 H Neut % (Auto) 68.5 Lymph % (Auto) 18.2 L [place] % (Auto) 6.2 Eos % (Auto) 4.9 Baso % (Auto) 1.1 H Absolute Neuts (auto) 5.7 Absolute Lymphs (auto) 1.52 Nucleated RBC % 0 Sodium 139 Potassium 4.3 Chloride 110 H Carbon Dioxide 24.0 Anion Gap 5 BUN 15 Creatinine 1.20 Estim Creat Clear Calc 53.86 Est GFR (MDRD) Af Amer 74 Est GFR (MDRD) Non-Af 61 BUN/Creatinine Ratio 12.5 Glucose 110 H Calcium 8.8 Urine Color Yellow Urine Clarity Sl. Cloudy Urine pH 5.0 Ur Specific [place] 1.010 Urine Protein 15 H Urine Glucose (UA) Normal Urine Ketones Negative Urine Occult Blood 250 H Urine Nitrite Negative Urine Bilirubin Negative Urine Urobilinogen Normal Ur Leukocyte Esterase Negative Urine RBC 25-50 SEEN Urine WBC 0 SEEN Ur Squamous Epith Cells 0 SEEN Urine Bacteria 0 SEEN Urine Mucus 0 SEEN - Medical Decision Making On exam patient normal stable vital signs. His hemoglobin was 14. His basic metabolic panel was unremarkable. He did have 25-50 red blood cells noted in his urinalysis. He was not urinating gross blood. He was able to empty his bladder. He held his Eliquis this morning. We advised him to hold it again tonight and restarted tomorrow and follow-up with urology. He and his daughter were agreeable with this plan. Return precautions given. He will be discharged <Mick Mckeon - Last Filed: 03/27/20 12:14> - Medical Decision Making Attending Note: I evaluated this patient with the midlevel provider. I performed my own face to face evaluation and agree with the above noted history and physical. I agree with the plan of care and the disposition. Patient presented secondary to hematuria. Physical exam was benign and vital signs were stable as noted above. Work-up shows the patient to have stable blood counts, normal renal function, and blood in his urine. Patient was recommended to hold Eliquis until tomorrow and to follow-up with urology. <Ulices Pavon - Last Filed: 03/27/20 12:45> ED Disposition <Mick Mckeon - Last Filed: 03/27/20 12:14> <Ulices Pavon - Last Filed: 03/27/20 12:45> - Plan for ED Patient: Disposition: Home or Assisted Living Diagnosis: Hematuria, Cardiomyopathy, dilated, nonischemic, Chronic a-fib Instructions: ED Hematuria Referrals: Dariusz Gonzalez Chi, MD [Primary Care Provider] - Damir Stanford MD [STAFF PHYSICIAN] - As soon as possible Additional Instructions: Please restart your Eliquis tomorrow morning. Please hold your dose this evening.
[2020-03-27 11:29] LABS: Absolute Lymphocyte Count 1.52 X10^3/uL (0.83-4.51); Absolute Neutrophil Count 5.7 X10^3/uL (2.0-7.7); Basophil# 0.09 X10^3/uL; Basophil% 1.1 % (0-1); Eosinophil# 0.41 X10^3/uL; Eosinophils% 4.9 % (0-5); Hematocrit 43.3 % (40-54); Hemoglobin 14.7 g/dL (13.0-16.5); Lymphocyte # 1.52 X10^3/ul (4.0); Lymphocyte % 18.2 % (19-41); Mean Corp Hgb Conc 33.9 g/dL (32-36); Mean Corpuscular Hgb 29.8 pg (27.0-32.0); Mean Corpuscular Volume 87.8 fL (80-94); Mean Platelet Vol. 9.6 fl (6.2-12.0); Monocyte# 0.52 X10^3/uL; Monocyte% 6.2 % (0-10); NRBC Flagged by Analyzer 0 % (0-5); Neutrophil # 5.72 X10^3/uL (2.7-7.7); Neutrophil % 68.5 % (47-70); Platelet Count 257 K/mm3 (150-450); RBC Distribution Width CV 14.5 % (11.6-14.6); RBC Distribution Width SD 46.8 fl (35.1-43.9); Red Blood Count 4.93 M/mm3 (4.6-6.2); White Blood Count 8.4 K/mm3 (4.4-11.0)
[2020-03-27 11:42] LABS: Anion Gap 5 (5-15); BUN 15 mg/dL (7-18); BUN/Creat Ratio 12.5 RATIO (10-20); Calcium,Total 8.8 mg/dL (8.5-10.1); Chloride 110 mmol/L (98-107); EST Glomerular Filtration Rate 61 mL/min (>60); Est Glom Filt Rate - Afr Amer 74 mL/min (>60); Estimated Creatinine Clearance 53.86 ml/min; Glucose 110 mg/dL (74-106); Potassium 4.3 mmol/L (3.5-5.1); Sodium Level 139 mmol/L (136-145)
[2020-03-27 11:49] LABS: Bacteria 0 SEEN /hpf (None Seen); Mucous, Urine 0 SEEN /hpf (<or=2+); Squamous Epithelial Cells - UA 0 SEEN /hpf (0-5); White Blood Cells 0 SEEN /hpf (0-5)
[2020-03-27 11:57] LABS: Color, Urine Yellow (Yellow); Glucose, Dipstick Normal (Normal); Ketone-Dipstick Negative (Negative); Leukocyte Esterase-Dipstick Negative /ul (Negative); Nitrite-Dipstick Negative (Negative); Occult Blood-Urine 250 /ul (Negative); Protein-Dipstick 15 mg/dl (Negative); Urine Bilirubin Dipstick Negative (Negative); Urine Clarity Sl. Cloudy (Clear); Urine Urobilinogen Normal (Normal)
[2020-03-27 12:07] LABS: Red Blood Cells-Urine 25-50 SEEN /hpf (0-5)
[2020-03-27 12:39] VITALS: BP 158/78; PULSE 81; RESP 20; O2SAT 97
--- NOTE | 2020-03-27 12:40 | ED.RN ---
Addendum entered by Erinn Serrano 03/27/20 12:41: IV D/C. IV CATHETER INTACT. PT TOLERATED WELL. Original Note: THIS NURSE REVIEWED D/C INSTRUCTIONS WITH PT AND VISITOR. BOTH VERBALIZED UNDERSTANDING OF INSTRUCTIONS. PT DENIES FURTHER NEEDS OR QUESTIONS AT THIS TIME. PT ASSISTED TO VEHICLE VIA W/C ON ONE STAFF ASSIST.
== END 2020-03-27 12:41 | disposition home or self-care (01) ==
PROVIDERS: Emergency Provider Physician Assistant Medical; PCP Family Medicine Geriatric Medicine
DX: R31.9 Hematuria, unspecified (principal); I42.0 Dilated cardiomyopathy; I48.20 Chronic atrial fibrillation, unspecified; I49.5 Sick sinus syndrome; I95.1 Orthostatic hypotension; F03.90 Unspecified dementia, unspecified severity, without behavioral disturbance, psychotic disturbance, mood disturbance, and anxiety; G40.909 Epilepsy, unspecified, not intractable, without status epilepticus; Z95.0 Presence of cardiac pacemaker; Z79.01 Long term (current) use of anticoagulants; Z79.899 Other long term (current) drug therapy; Z87.891 Personal history of nicotine dependence
CPT/HCPCS: 80048; 81001; 85025; 99284; A4216

== ENCOUNTER → 2020-03-29 12:08 | Outpatient (CLI) | payer MEDICARE, OTHER, SELFPAY ==
[2020-03-27 10:54] VITALS: BMI 23.1
[2020-03-29 13:23] LABS: Absolute Lymphocyte Count 1.61 X10^3/uL (0.83-4.51); Absolute Neutrophil Count 6.8 X10^3/uL (2.0-7.7); Basophil# 0.09 X10^3/uL; Basophil% 0.9 % (0-1); Eosinophil# 0.35 X10^3/uL; Eosinophils% 3.7 % (0-5); Hematocrit 45.3 % (40-54); Hemoglobin 15.2 g/dL (13.0-16.5); Lymphocyte # 1.61 X10^3/ul (4.0); Lymphocyte % 16.9 % (19-41); Mean Corp Hgb Conc 33.6 g/dL (32-36); Mean Corpuscular Hgb 30.1 pg (27.0-32.0); Mean Corpuscular Volume 89.7 fL (80-94); Mean Platelet Vol. 10.2 fl (6.2-12.0); Monocyte% 6.3 % (0-10); NRBC Flagged by Analyzer 0 % (0-5); Neutrophil # 6.81 X10^3/uL (2.7-7.7); Neutrophil % 71.6 % (47-70); Platelet Count 302 K/mm3 (150-450); RBC Distribution Width CV 14.8 % (11.6-14.6); RBC Distribution Width SD 48.3 fl (35.1-43.9); Red Blood Count 5.05 M/mm3 (4.6-6.2); White Blood Count 9.5 K/mm3 (4.4-11.0)
[2020-03-29 13:40] LABS: Vitamin D,25 Hydroxy 38.6 ng/mL
[2020-03-29 13:53] LABS: ALB/GLOB Ratio 0.9 RATIO (0.9-2.4); AST(SGOT) 18 U/L (15-37); Alanine Aminotransfer ALT/SGPT 18 U/L (16-61); Albumin, Serum 3.3 g/dL (3.2-5.0); Alkaline Phosphatase 176 U/L (45-117); Anion Gap 2 (5-15); BUN 13 mg/dL (7-18); BUN/Creat Ratio 9.2 RATIO (10-20); Calcium,Total 8.8 mg/dL (8.5-10.1); Chloride 108 mmol/L (98-107); Creatinine, Serum 1.42 mg/dL (0.70-1.30); EST Glomerular Filtration Rate 51 mL/min (>60); Est Glom Filt Rate - Afr Amer 61 mL/min (>60); Globulin 3.7 g/dL (2.2-4.2); Glucose 93 mg/dL (74-106); Potassium 4.5 mmol/L (3.5-5.1); Sodium Level 139 mmol/L (136-145); Thyroid Stim Hormone (TSH) 4.84 uIU/mL (0.358-3.74)
== END ==
PROVIDERS: PCP Family Medicine Geriatric Medicine; Visit Provider Family Medicine Geriatric Medicine
DX: E55.9 Vitamin D deficiency, unspecified (principal); I10 Essential (primary) hypertension
CPT/HCPCS: 36415; 80053; 82306; 84443; 85025

== ENCOUNTER 2020-04-04 05:11 | Inpatient (IN) | payer MEDICARE, OTHER, SELFPAY ==
[2020-04-01 15:24] VITALS: BMI 23.1
[2020-04-04] VITALS (13 sets, daily range): BP systolic 111–177; BP diastolic 76–117; PULSE 58–86; RESP 16–18; TEMP 36.4–37.2; O2SAT 96–100; BMI 22.9; BMI 22.1
--- NOTE | 2020-04-04 05:42 | CT_ITS ---
STUDY: CT BRAIN WITHOUT CONTRAST REASON FOR EXAM: Male, 84 years old. Dizziness then fall hitting head. RADIATION DOSAGE (If Supplied By Facility): CTDIvol = ( 44.99 ) mGy, DLP = ( 863.60 ) mGycm TECHNIQUE: Transaxial CT imaging of the brain was performed without administration of intravenous contrast material. Individualized dose optimization techniques were used for this CT. COMPARISON: February 16, 2020. FINDINGS: Left posterior parietal scalp swelling. Right frontal parietal craniotomy. Normal size ventricles and extra-axial spaces for the patient''s age. There are areas of decreased attenuation within the white matter tracts of the supratentorial brain, consistent with microvascular disease changes. Normal basal ganglia and thalami. Normal brainstem. Normal cerebellum. There is no intracranial hemorrhage. There are no findings of an acute ischemic infarction. Normal visualized paranasal sinuses. CT/Brain/Head without Contrast IMPRESSION: Left posterior parietal scalp swelling. Otherwise no significant change in CT of the brain. No acute intracranial abnormality. Electronically Signed: Richard Coyne MD at 6:10 EDT , Service support ,
--- NOTE | 2020-04-04 05:42 | CT_ITS ---
STUDY: CT CERVICAL SPINE WITHOUT CONTRAST REASON FOR EXAM: Male, 84 years old. Dizziness followed by fall, hitting head. RADIATION DOSAGE (If Supplied By Facility): CTDIvol = ( 16.62 ) mGy, DLP = ( 370.42 ) mGycm TECHNIQUE: High resolution transaxial imaging was performed without contrast material. Sagittal and coronal images were reconstructed. Individualized dose optimization techniques were used for this CT. COMPARISON: March 17, 2020. December 26, 2019. FINDINGS: Normal craniovertebral junction. Normal anterior atlantoaxial articulation. No significant change in transverse displaced distracted type III odontoid fracture, which involves the base of the odontoid, since December 2019. Central lucency within the odontoid process unchanged. Calcification of the transverse ligament. Minimal anterior listhesis C3 on C4 and C4 on C5 unchanged.Disc space narrowing C5-C6, C6-C7 and C7-T1 unchanged No significant spinal stenosis. Neuroforamina narrowing C3-C4 bilaterally, C4-C5 on the left. Normal vertebral bodies and posterior osseous elements. Normal visualized soft tissue structures. Carotid calcifications. CT/Spine Cervical without Contras IMPRESSION: Stable CT of the cervical spine, no acute fracture. Old odontoid fracture. Multilevel degenerative changes. Electronically Signed: Richard Coyne MD at 6:27 EDT , Service support ,
--- NOTE | 2020-04-04 05:49 | ED.DCSUM_ITS ---
- ER Visit Summary Date of Service: 04/04/20 Chief Complaint: Fall History of Present Illness: The patient is a 84 M who presents after a fall that occurred today. Patient states he got up to go to the bathroom this morning and fell while walking. Patient states he has a history of syncopal episodes but t he family member who was there stated she arrived to his side after approximately 30 seconds and he was awake and alert at the time. Patient hit the back of his head. Patient admits to some aching. Patient also admits to some neck pain. Patient states nothing makes his headache better or worse. Patient states his tetanus immunizations are up-to-date. Patient denies any visual changes. Patient denies any nausea or vomiting. Patient is on Eliquis for atrial fibrillation. Patient also states he has a fracture in his cervical spine on 1 of his transverse processes. Physical Examination: Vital signs are stable. Patient is afebrile. Patient is in no acute distress. Skin is warm and dry. There is a 2 cm full-thickness laceration over the left occipital scalp. There is no bony crepitance or step- off. There is also some mild tenderness over the cervical paraspinal muscles. There is no midline tenderness. There is no bony crepitance or step-off. Cranial nerves II through XII are intact. Strength is 5/5 bilateral in the upper and lower extremities. There are no sensory deficits noted. Heart was irregularly irregular. Lungs are clear and equal bilaterally. Abdomen is soft and nontender. Extremities are intact. There is no calf tenderness or edema. Test Results: CT scan of the brain and cervical spine were obtained. There is no acute intracranial abnormality. There is no acute fracture of the cervical spine. These were interpreted by the radiologist and reviewed by myself. Emergency Department Course and Treatment: The wound was cleaned and irrigated with copious amounts of normal saline. The wound was anesthetized with 1% lidocaine with epinephrine locally. The wound was closed with 5 catherine under sterile technique. Patient tolerated the procedure well. Bacitracin dressing was applied. Patient was instructed to keep the wound clean and dry. Patient was instructed to follow-up with his primary care physician in 5 to 7 days for wound recheck and staple removal. Patient and family understood and were agreeable with the plan. All questions were answered. Disposition: Discharge home Impression: 1. Scalp laceration This note was generated with Dragon dictation software. It may contain incorrect words, spelling, and punctuation that were not noted in review of the chart prior to signing ED Disposition - Plan for ED Patient: Disposition: Home or Assisted Living Diagnosis: Occipital scalp laceration Instructions: ED Head Injury Adult, ED Laceration Scalp Sutures or Catherine Referrals: Dariusz Gonzalez Chi, MD [Primary Care Provider] - 5 Days for suture removal
[2020-04-04] MEDS: Acetaminophen 500 MG Tablet 1000 MG PO (07:45)
--- NOTE | 2020-04-04 08:00 | ED.RN ---
UPON ATTEMPTING TO DISCHARGE PATIENT, HE COMPLAINS OF CONTINUED DIZZINESS AND FEARFUL OF FALLING. HE AMBULATES AT HOME WITH A WALKER AND LIVES WITH DAUGHTER. PATIENT ASKED IF HE FELT SAFE TO GO HOME TO WHICH HE STATES HELL NO. DR. REDDY MADE AWARE AND WILL EVALUATE PATIENT.
[2020-04-04] MEDS: BACITRACIN 15 GM Tube 1 APPLIC TOPICAL (09:12)
[2020-04-04 09:20] LABS: Absolute Lymphocyte Count 1.56 X10^3/uL (0.83-4.51); Absolute Neutrophil Count 8.9 X10^3/uL (2.0-7.7); Basophil# 0.08 X10^3/uL; Basophil% 0.7 % (0-1); Eosinophil# 0.17 X10^3/uL; Eosinophils% 1.5 % (0-5); Hematocrit 45.1 % (40-54); Hemoglobin 15.3 g/dL (13.0-16.5); Lymphocyte # 1.56 X10^3/ul (4.0); Lymphocyte % 13.8 % (19-41); Mean Corp Hgb Conc 33.9 g/dL (32-36); Mean Corpuscular Hgb 30.1 pg (27.0-32.0); Mean Corpuscular Volume 88.8 fL (80-94); Mean Platelet Vol. 9.8 fl (6.2-12.0); Monocyte# 0.55 X10^3/uL; Monocyte% 4.9 % (0-10); NRBC Flagged by Analyzer 0 % (0-5); Neutrophil # 8.91 X10^3/uL (2.7-7.7); Neutrophil % 78.5 % (47-70); Platelet Count 275 K/mm3 (150-450); RBC Distribution Width CV 14.2 % (11.6-14.6); RBC Distribution Width SD 46.3 fl (35.1-43.9); Red Blood Count 5.08 M/mm3 (4.6-6.2); White Blood Count 11.3 K/mm3 (4.4-11.0)
[2020-04-04 09:43] LABS: Anion Gap 5 (5-15); BUN 13 mg/dL (7-18); BUN/Creat Ratio 9.6 RATIO (10-20); Calcium,Total 8.5 mg/dL (8.5-10.1); Chloride 108 mmol/L (98-107); Creatinine, Serum 1.35 mg/dL (0.70-1.30); EST Glomerular Filtration Rate 54 mL/min (>60); Est Glom Filt Rate - Afr Amer 65 mL/min (>60); Glucose 99 mg/dL (74-106); Potassium 4.3 mmol/L (3.5-5.1); Sodium Level 138 mmol/L (136-145)
--- NOTE | 2020-04-04 11:43 | HP.PCM_ITS ---
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 Status: Chronic Qualifiers: Comment: [id number] LAD 09/21/2004 (12) History of coronary artery stent placement Status: Chronic Comment: [id number] LAD 09/21/2004 (13) Longstanding persistent atrial fibrillation Status: Chronic (14) Presence of permanent cardiac pacemaker Status: Chronic Comment: Permanent Pacemaker insertion, single chamber 10/17/15, [employer] (15) Essential (primary) hypertension Status: Chronic (16) Hyperlipidemia Status: Chronic Qualifiers: (17) Bundle branch block, right Status: Chronic History of Present Illness Date of Admission: 04/04/20 Chief Complaint: fall The patient is a 84 year old M with a known history of orthostatic hypotension has been feeling well as of late but with his bathroom last night around 4 AM and then fell. Patient states that he had to urinate and member started urinate but then went out. Patient hit the back of his head. Patient has no recollection of the fall. Patient was found to have a scalp hematoma which was stapled in place. They got him up later and the patient just felt off and unsteady and did not feel that he could return home at this time. Patient states that he is feeling well otherwise has been eating and drinking properly. He denies any recent illnesses nor any known sick contacts. [] Past Medical History Past Medical History (Chronic Problems): Chronic Problems (Last Updated 03/16/20 @ 11:[address] 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 (Chronic) I25.10 [id number]-[id number] LAD 09/21/2004 Longstanding persistent atrial fibrillation (Chronic) I48.11 Essential (primary) hypertension (Chronic) I10 Hyperlipidemia (Chronic) E78.5 Bundle branch block, right (Chronic) I45.10 Glaucoma H40.9 History of 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 Onset Date: 09/13/08 Z86.79 09/13/2008 Hypothyroidism E03.9 Osteoarthritis M19.90 Lower GI bleed K92.2 Allergies hydrochlorothiazide Adverse Reaction (Intermediate, Verified 04/04/20 05:17) syncope Home Medications: Ambulatory Orders Medication Instructions Recorded Latanoprost 0.005% [Xalatan 1 drp EACH EYE QHS 07/31/18 Opthalmic] Acetaminophen [Tylenol] 500 mg PO DAILY PRN PRN 03/14/20 Apixaban [Eliquis] 2.5 mg PO BID 03/14/20 Atorvastatin Calcium [Lipitor] 40 mg PO DAILY@0 03/14/20 Levothyroxine Sodium [Synthroid] 75 mcg PO DAILY 03/14/20 Potassium Chloride [K-Dur] 40 meq PO DAILYCM 03/14/20 Tamsulosin HCl [Flomax] 0.4 mg PO DAILY@1730 03/14/20 levETIRAcetam tablet [Keppra 500 mg PO BID #60 tab 03/15/20 tablet] Amiodarone HCl [Cordarone] 200 mg PO BID #60 tab 03/16/20 Digoxin [Lanoxin] 125 mcg PO DAILY #30 tab 03/16/20 midodrine 10 mg tablet 10 mg PO TID 04/01/20 Surgical History: Surgical History (Last Reviewed 04/04/20 @ 11:[address] Russel Byrne DO) History of coronary artery stent placement (Chronic) Onset Date: 09/21/04 Z95.5 [id number] LAD 09/21/2004 Presence of permanent cardiac pacemaker (Chronic) Onset Date: 10/17/15 Z95.0 Permanent Pacemaker insertion, single chamber 10/17/15, [employer] History of bilateral cataract extraction Z98.41, Z98.42 History of bilateral knee replacement Z96.653 06/22/2014 History of craniotomy Onset Date: 09/13/08 Z98.890 09/13/08 for 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 History of radiofrequency ablation procedure for cardiac arrhythmia Z98.890 Surgical History: cataract, herniorrhaphy, pacemaker implantation, total knee arthroplasty, - - Neurosurgery for traumatic intracranial bleed 10 years ago or more Psychiatric History: No pertinent psych hx Smoking Status: Former smoker - *Family History Maternal Family History: Family History (Last Reviewed 04/04/20 @ 11:[address] Russel Byrne DO) Father CAD (coronary artery disease) Myocardial infarction Sudden cardiac Mother No problems noted. Uncle CAD (coronary artery disease) Sudden cardiac Myocardial infarction Other Heart disease History Items: - - Denies any market maternal family history including heart disease, diabetes or cancer. Paternal Family History: Family History (Last Reviewed 04/04/20 @ 11:[address] Russel Byrne DO) Father CAD (coronary artery disease) Myocardial infarction Sudden cardiac Mother No problems noted. Uncle CAD (coronary artery disease) Sudden cardiac Myocardial infarction Other Heart disease History Items: High Cholesterol, Heart Disease, Hypertension, - - father had mi at age 69 Review of Systems Constitutional: Denies: Anorexia, Chills, Fever, Night Sweats Eyes: Denies: Blurred vision, Double vision HEENT: Reports: - - no anosmia. no dysgusia. Denies: Head Aches, Sinus Congestion, Sinus Drainage Cardiovascular: Denies: Chest Pain, Palpitations Respiratory: Denies: Cough, Shortness of breath at rest, Sputum production Gastrointestinal: Denies: Abdominal Pain, Nausea, Vomiting Genitourinary: Denies: Dysuria Musculoskeletal: Denies: Joint Pain, Joint Tenderness Skin: Denies: Rash, Wounds Neurological: Reports: Balance problems. Denies: Focal weakness, Numbness, Tingling Psychiatric: Denies: Anxiety, Depression Hematologic/ Lymphatic: Denies: Easy Bruising, Easy Bleeding, Hx of blood clot Comment: All review of systems were negative except as mentioned above in the history of present illness and the other review of systems. VTE Information - Inpt Only VTE Present on Admission: No VTE Pharm Prophylaxis ordered?: No Reason prophylaxis not ordered:: Treatment Not Indicated Patient Problems: Active and Suspected Problems (Last Updated 03/16/20 @ 11:[address] Nicola Marie MD) Occipital scalp laceration (Acute) Scalp laceration (Acute) - Physical Exam Vitals/I&O's: Vital Signs Temp Pulse Resp BP Pulse Ox 37.1 C 82 18 168/88 H 96 04/04/20 05:12 04/04/20 09:20 04/04/20 09:20 04/04/20 09:20 04/04/20 09:20 Oxygen Delivery Method Room Air Weight: 81 kg Body Mass Index (BMI) 22.9 Finger Stick Blood Glucose 115 General: Alert, Cooperative, No apparent distress, Well developed, Well nourished HEENT: PERRLA, EOMI - horizontal and vertical nystagmus, - - stapled (5) posterior left scalp hematoma. Oral: Moist Mucosa, No Gingival or Mucosal Lesions/ Ulcerations Neck: No Nodes, Thyroid Normal Size and Texture Lungs: Clear to auscultation, Normal air movement, No rhonchi, No wheeze, No rales Cardiovascular: Regular rate, Regular Rhythm, Normal S1, Normal S2, No murmurs Abdomen: Bowel Sounds Present, Soft, Non Tender, Non-Distended, No Hepato- splenomegaly Extremities: No edema, No Calf Tenderness Skin: No rashes, No breakdown Musculoskeletal: No Tenderness to Palpation of Joints or Extremities, No Muscle Wasting Neurological: Cranial nerves II-XII grossly intact, - - no clonus Psych/Mental Status: Normal Affect, Appropriate Laboratory Results 04/04/20 09:10: WBC 11.3 H, RBC 5.08, Hgb 15.3, Hct 45.1, MCV 88.8, MCH 30.1, MCHC 33.9, RDW Std Deviation 46.3 H, RDW Coeff of Carolyn 14.2, Plt Count 275, MPV 9.8, Immature Gran % (Auto) 0.600, Neut % (Auto) 78.5 H, Lymph % (Auto) 13.8 L, [place] % (Auto) 4.9, Eos % (Auto) 1.5, Baso % (Auto) 0.7, Absolute Neuts (auto) 8.9 H, Absolute Lymphs (auto) 1.56, Nucleated RBC % 0 04/04/20 09:10: Sodium 138, Potassium 4.3, Chloride 108 H, Carbon Dioxide 25.0, Anion Gap 5, BUN 13, Creatinine 1.35 H, Estim Creat Clear Calc 47.50, Est GFR (MDRD) Af Amer 65, Est GFR (MDRD) Non-Af 54 L, BUN/Creatinine Ratio 9.6 L, Glucose 99, Calcium 8.5 Clinical Impression(s) from Imaging Studies Brain CT 04/04/20 05:42 IMPRESSION: Left posterior parietal scalp swelling. Otherwise no significant change in CT of the brain. No acute intracranial abnormality. Electronically Signed: Richard Coyne MD at 6:10 EDT , Service support , Cervical Spine CT 04/04/20 05:42 IMPRESSION: Stable CT of the cervical spine, no acute fracture. Old odontoid fracture. Multilevel degenerative changes. Electronically Signed: Richard Coyne MD at 6:27 EDT , Service support , Assessment/Plan All Active Problems (Last Updated 03/16/20 @ 11:[address] Nicola Marie MD) Syncope and collapse (Acute) Occipital scalp laceration (Acute) Scalp laceration (Acute) 1. Syncope * Those unwitnessed, patient has a history of orthostatic hypotension and patient was urinating when this occurred. Patient may have amnesia as he did hit his head though patient is not demonstrating any postconcussive symptoms at this time. And since patient came too quickly, felt unlikely to be seizure. * Plan: Check orthostatic vital signs, monitor on telemetry, and interrogate his pacemaker. Physical and occupational therapy evaluate and treat. 2. Posterior scalp laceration * Status post fall * Stapled in place * Follow-up primary care doctor in 7 to 10 days to have catherine removed 3. Chronic conditions: Coronary artery disease, hypothyroidism, hyperlipidemia, osteoarthritis. * Overall stable but overall complicate patient's care. 4. Atrial fibrillation: Anticoagulated on apixaban. Continue with amiodarone and digoxin. 5. VTE prophylaxis: Not indicated as patient is already anticoagulated. OBSV E&M: [id number] Initial observation care L3
--- NOTE | 2020-04-04 14:56 | NURSING ---
1430-ortho VS completed per MD order. pt denied dizziness from lying to sitting position. pt reporting becoming slightly lightheaded with standing at bedside with walker. assisted with urinal while standing; pt reported worsening dizziness. manager of community relations into room stating patient had run of vtach on monitor. will notify MD. pt assisted back to bed, BP rechecked in sitting position. assisted to lying position, pt states symptoms improved with laying down. will continue to monitor.
[2020-04-04] MEDS: APIXABAN 2.5 MG TABLET PO ×2 (15:05→22:33)
[2020-04-04] MEDS: levETIRAcetam 500 MG Tablet PO ×2 (15:05→22:33)
[2020-04-04] MEDS: 0.9% Saline Lock 10 ML Syringe IV (15:05)
[2020-04-04] MEDS: Amiodarone 200 MG Tablet PO ×2 (15:05→22:33)
--- NOTE | 2020-04-04 15:11 | NURSING ---
pacer check preformed, awaiting return call from rep.
[2020-04-04] MEDS: Digoxin 125 MCG Tablet PO (15:13)
[2020-04-04] MEDS: Tamsulosin HCl 0.4 MG Capsule PO (17:14)
[2020-04-04] MEDS: Midodrine HCl 5 MG Tablet 10 MG PO (17:14)
[2020-04-04] MEDS: Atorvastatin Calcium 40 MG Tablet PO (22:34)
[2020-04-04] MEDS: Latanoprost 0.005% 1 Bottle 1 DRP EACH EYE (22:36)
[2020-04-05] VITALS (11 sets, daily range): BP systolic 76–176; BP diastolic 50–116; PULSE 58–88; RESP 16–18; TEMP 36.4–37.3; O2SAT 97–100
[2020-04-05] MEDS: Levothyroxine 75 MCG Tablet PO (05:24)
[2020-04-05] MEDS: Acetaminophen 325 MG Tablet 650 MG PO (05:24)
[2020-04-05] MEDS: Midodrine HCl 5 MG Tablet 10 MG PO ×3 (05:24→17:08)
[2020-04-05 06:14] LABS: Thyroid Stim Hormone (TSH) 3.03 uIU/mL (0.358-3.74)
--- NOTE | 2020-04-05 06:32 | NURSING ---
Attempted to complete orthostatic BP with pt this am. Started laying position BP and pt had to stop to void. Stood to void at bedside for approx 1.5 min before laying back in bed. Laying BP 176/117 HR 75. Sitting BP 138/98 HR 60. Standing BP 76/50 HR 58. Pt had slight dizziness as soon as standing BP was finished and sat back down, no other symptoms during orthostatic assessment. Pt helped back into bed, made comfortable, and BP checked once more at 130/82.
[2020-04-05] MEDS: Amiodarone 200 MG Tablet PO ×2 (08:07→20:54)
[2020-04-05] MEDS: APIXABAN 2.5 MG TABLET PO ×2 (08:07→20:53)
[2020-04-05] MEDS: levETIRAcetam 500 MG Tablet PO (08:07)
[2020-04-05] MEDS: 0.9% Saline Lock 10 ML Syringe IV (08:08)
[2020-04-05] MEDS: Digoxin 125 MCG Tablet PO (09:42)
[2020-04-05 10:08] LABS: Magnesium 2.2 mg/dL (1.6-2.6)
--- NOTE | 2020-04-05 11:50 | CASEMGMT ---
RN JAY Face to Face with patient for initial transition planning/care coordination assessment. RN CM introduced self and role at [facility]. Patient lying in bed, alert and oriented, daughter at bedside. Patient willing to participate in assessment and is able to answer all questions appropriately. Care providers, pharmacy, and demographics verified. Patient wishes to discharge home, with resumption of HHC with [facility]. Daughter requesting additional information regarding transportation assistance and other services. SW updated regarding request for resources. Patient states he has no further needs or concerns at this time. CM to follow for discharge planning needs that may arise. PCP: Carlos Specialists: John, teleprinter installer Preferred Pharmacy: [facility] Insurance: [employer], [employer] Prescription Benefit: yes Living Will/HPOA: yes daughter Mar Hester HPOA LNOK: daughter, grandson Living Arrangements: Patient lives with daughter and grandson in a 2 story home with bed and bath on main level, no steps to enter the home. Patient states he is independent for self care. Transportation: daughter DME/HHC: Patient states he has shower chair, cane, walker, rollator, wheelchair, and grab bars at home. Patient is active with [facility] for chcf and PT. Disposition Plan: Patient to discharge home with resumption of HHC, family support, and follow-up plans in place. Karina DAVIDSON, RN, CM
--- NOTE | 2020-04-05 13:21 | PCM.PN.HOSP ---
Patient Problems: Active and Suspected Problems (Last Reviewed 04/04/20 @ 11:[address] Russel Byrne, DO) Occipital scalp laceration (Acute) Scalp laceration (Acute) Reason for Visit: syncope Subjective: No new complaints. Had a tremendous drop in BP with orthostatic vitals. Vitals/I&O's: Vital Signs Temp Pulse Resp BP Pulse Ox 36.4 C L 76 18 139/89 H 100 04/05/20 08:05 04/05/20 09:42 04/05/20 08:05 04/05/20 09:42 04/05/20 08:05 Oxygen Delivery Method Room Air Weight: 78 kg Body Mass Index (BMI) 22.1 Finger Stick Blood Glucose 115 Orthostatic Vital Signs Start: 04/04/20 14:33 Freq: q24h Status: Active Protocol: Activity Type Activity Date Activity User E-Sign Co-Sign Detail Recorded Client Recorded Date Recorded By Document 04/05/20 06:32 EF [id number] 04/05/20 07:45 EF 04/05/20 06:32 Orthostatic Vitals Standing -Blood Pressure (90/60-120/80) 76/50 L -Extremity Use Right Arm -Pulse Rate (60-100) 58 L Sitting -Blood Pressure (90/60-120/80) 138/98 H -Extremity Use Right Arm -Pulse Rate (60-100) 60 Lying -Blood Pressure (90/60-120/80) 176/116 H -Extremity Use Right Arm -Pulse Rate (60-100) 75 Intake and Output for Last 24 Hours 04/03/20 04/04/20 04/05/20 23:59 23:59 23:59 Intake Total 1100 / 1100 1650 / 1650 Output Total 425 / 425 1150 / 1150 Balance 675 / 675 500 / 500 General: Alert, No apparent distress HEENT: Atraumatic, Normocephalic Oral: Moist Mucosa, No Gingival or Mucosal Lesions/ Ulcerations Neck: No Nodes, Thyroid Normal Size and Texture Lungs: Clear to auscultation, Normal air movement, No rhonchi, No wheeze, No rales Cardiovascular: Regular rate, Regular Rhythm, Normal S1, Normal S2, No murmurs Abdomen: Bowel Sounds Present, Soft, Non Tender, Non-Distended, No Hepato-splenomegaly Extremities: No edema, No Calf Tenderness Laboratory Results 04/05/20 05:38: TSH 3.03 04/05/20 05:38: Magnesium 2.2 Current Medications Acetaminophen (Tylenol) 650 mg PO Q6H PRN PRN PRN Reason: Pain Score 1-10/Temp > 100.7 F Last Admin: 04/05/20 05:24 Dose: 650 mg Documented by: Amiodarone HCl (Cordarone) 200 mg PO BID [facility] Last Admin: 04/05/20 08:07 Dose: 200 mg Documented by: Apixaban (Eliquis) 2.5 mg PO BID [facility] Last Admin: 04/05/20 08:07 Dose: 2.5 mg Documented by: Atorvastatin Calcium (Lipitor) 40 mg PO QHS [facility] Last Admin: 04/04/20 22:34 Dose: 40 mg Documented by: Digoxin (Lanoxin) 125 mcg PO DAILY [facility] Last Admin: 04/05/20 09:42 Dose: 125 mcg Documented by: Sodium Chloride () 250 mls @ 15 mls/hr IV .[id number] PRN PRN Reason: Saline Flush Sodium Chloride () 250 mls @ 15 mls/hr IV .[id number] PRN PRN Reason: Additional IVPB Infusion Latanoprost (Xalatan Opthalmic) 1 drop EACH EYE QHS [facility], [facility] Last Admin: 04/04/20 22:36 Dose: 1 drop Documented by: Levetiracetam (Keppra Tablet) 250 mg PO BID [facility] Levothyroxine Sodium (Synthroid) 75 mcg PO DAILY@0600 [facility] Last Admin: 04/05/20 05:24 Dose: 75 mcg Documented by: Midodrine (Proamatine) 10 mg PO 0600,1200,1800 [facility] Last Admin: 04/05/20 12:18 Dose: 10 mg Documented by: Potassium Chloride (K-Dur) 40 meq PO DAILYCM [facility] Last Admin: 04/05/20 08:06 Dose: 40 meq Documented by: Sodium Chloride () 10 - 40 ml IV UD PRN PRN Reason: SALINE FLUSH Last Admin: 04/05/20 08:08 Dose: 10 ml Documented by: STROKE Vital Signs/Narrative: Vital Signs Pulse BP 04/05/20 09:42 76 139/89 H Medical Necessity - Tobacco Use Smoking Status: Former smoker Assessment/Plan All Active Problems (Last Reviewed 04/04/20 @ 11:[address] Russel Byrne, DO) Syncope and collapse (Acute) Occipital scalp laceration (Acute) Scalp laceration (Acute) 1. Syncope Secondary to orthostatic hypotension Those unwitnessed, patient has a history of orthostatic hypotension and patient was urinating when this occurred. Patient may have amnesia as he did hit his head though patient is not demonstrating any postconcussive symptoms at this time. And since patient came too quickly, felt unlikely to be seizure. Pacer interogation was negative for arrhythmia DC tamsulosin 2. Posterior scalp laceration Status post fall Stapled in place Follow-up primary care doctor in 7 to 10 days to have catherine removed 3. Somnolence dtr notes pt has been more somnolent since starting levetiracetam DW SOC teleneurology. He recommended cutting dose back to 250 BID. He states that it is not clear patient every had a seizure, though he is concerned for a parkinson-type disorder and recommended outpt neurology evaluation. 4. Chronic conditions: Coronary artery disease, hypothyroidism, hyperlipidemia, osteoarthritis. Overall stable but overall complicate patient's care. 5. Atrial fibrillation: Anticoagulated on apixaban. Continue with amiodarone and digoxin. 6. VTE prophylaxis: Not indicated as patient is already anticoagulated. Than 35 minutes of which greater than 50% of time was discussing with patient and his daughter about the orthostatic hypotension and plan is to stop the tamsulosin as I do not feel that it is ultimate cause of his orthostatic hypotension but is may be contributing. Also discussed with the somnolence that the patient is experiencing that could be related with the levetiracetam him and consulted neurology. Inpatient E&M: [id number] [facility] L3
--- NOTE | 2020-04-05 14:03 | CASEMGMT ---
Social Work Note SW received referral for community resources including [facility], Transportation resources. SW in to speak with pt and pt's daughter. SW provided pt and pt's daughter with [facility] information, [facility], and transportation resources. SW informed pt and pt's daughter that a referral could be made to [facility] while pt is at [facility] if pt is agreeable and then [facility] could follow up with pt once pt is discharged. Karina Pizarro WASHER AND CRUSHER TENDER, ADMISSION NURSE COORDINATOR
[2020-04-05] MEDS: Atorvastatin Calcium 40 MG Tablet PO (20:53)
[2020-04-05] MEDS: levETIRAcetam 250 MG Tablet PO (20:54)
[2020-04-05] MEDS: Latanoprost 0.005% 1 Bottle 1 DRP EACH EYE (20:54)
[2020-04-06] VITALS (10 sets, daily range): BP systolic 103–151; BP diastolic 64–109; PULSE 55–86; RESP 16–18; TEMP 36.3–36.8; O2SAT 96–97
--- NOTE | 2020-04-06 05:22 | NURSING ---
Attempted orthostatic bp. Laying 141/109 81, sitting 103/64 55, unable to complete standing bp, pt stated he felt dizzy and started to lean forward. Assist X2 back to bed.
[2020-04-06] MEDS: Levothyroxine 75 MCG Tablet PO (05:26)
[2020-04-06] MEDS: Midodrine HCl 5 MG Tablet 10 MG PO ×3 (05:27→17:52)
[2020-04-06] MEDS: Amiodarone 200 MG Tablet PO ×2 (08:09→22:28)
[2020-04-06] MEDS: APIXABAN 2.5 MG TABLET PO ×2 (08:09→22:28)
[2020-04-06] MEDS: levETIRAcetam 250 MG Tablet PO ×2 (08:09→22:28)
[2020-04-06] MEDS: Digoxin 125 MCG Tablet PO (08:09)
[2020-04-06] MEDS: Fludrocortisone Acetate 0.1 MG Tablet PO (09:46)
--- NOTE | 2020-04-06 13:58 | PN_ITS ---
Patient Problems: Active and Suspected Problems (Last Reviewed 04/04/20 @ 11:[address] Russel Byrne, DO) Occipital scalp laceration (Acute) Scalp laceration (Acute) Subjective: Still with orthostatic hypotension. Vitals/I&O's: Vital Signs Temp Pulse Resp BP Pulse Ox 36.6 C 86 18 137/85 H 97 04/06/20 07:59 04/06/20 09:54 04/06/20 07:59 04/06/20 08:09 04/06/20 07:59 Oxygen Delivery Method Room Air Weight: 78 kg Body Mass Index (BMI) 22.1 Finger Stick Blood Glucose 115 Orthostatic Vital Signs Start: 04/04/20 14:33 Freq: q24h Status: Active Protocol: Activity Type Activity Date Activity User E-Sign Co-Sign Detail Recorded Client Recorded Date Recorded By Document 04/06/20 05:21 CDB [id number] 04/06/20 05:22 CDB 04/06/20 05:21 Orthostatic Vitals Sitting -Blood Pressure (90/60-120/80) 103/64 -Extremity Use Left Arm -Pulse Rate (60-100) 55 L Lying -Blood Pressure (90/60-120/80) 141/109 H -Extremity Use Left Arm -Pulse Rate (60-100) 81 Intake and Output for Last 24 Hours 04/04/20 04/05/20 04/06/20 23:59 23:59 23:59 Intake Total 1100 / 1100 2050 / 2250 850 / 850 Output Total 425 / 425 1475 / 1700 950 / 950 Balance 675 / 675 575 / 550 -100 / -100 General: Alert, No apparent distress, - - hard of hearing. HEENT: Atraumatic Oral: Moist Mucosa, No Gingival or Mucosal Lesions/ Ulcerations Neck: No Nodes, Thyroid Normal Size and Texture Lungs: Clear to auscultation, Normal air movement, No rhonchi, No wheeze, No rales Cardiovascular: Regular rate, Regular Rhythm, Normal S1, Normal S2 Abdomen: Bowel Sounds Present, Soft, Non Tender, Non-Distended Extremities: No edema, No Calf Tenderness Psych/Mental Status: Normal Affect, Appropriate Current Medications Acetaminophen (Tylenol) 650 mg PO Q6H PRN PRN PRN Reason: Pain Score 1-10/Temp > 100.7 F Last Admin: 04/05/20 05:24 Dose: 650 mg Documented by: Amiodarone HCl (Cordarone) 200 mg PO BID [facility] Last Admin: 04/06/20 08:09 Dose: 200 mg Documented by: Apixaban (Eliquis) 2.5 mg PO BID [facility] Last Admin: 04/06/20 08:09 Dose: 2.5 mg Documented by: Atorvastatin Calcium (Lipitor) 40 mg PO QHS [facility] Last Admin: 04/05/20 20:53 Dose: 40 mg Documented by: Digoxin (Lanoxin) 125 mcg PO DAILY [facility] Last Admin: 04/06/20 08:09 Dose: 125 mcg Documented by: Fludrocortisone Acetate (Florinef) 0.1 mg PO DAILY@0800 [facility] Last Admin: 04/06/20 09:46 Dose: 0.1 mg Documented by: Sodium Chloride () 250 mls @ 15 mls/hr IV .[id number] PRN PRN Reason: Saline Flush Sodium Chloride () 250 mls @ 15 mls/hr IV .[id number] PRN PRN Reason: Additional IVPB Infusion Latanoprost (Xalatan Opthalmic) 1 drop EACH EYE QHS [facility] Last Admin: 04/05/20 20:54 Dose: 1 drop Documented by: Levetiracetam (Keppra Tablet) 250 mg PO BID [facility] Last Admin: 04/06/20 08:09 Dose: 250 mg Documented by: Levothyroxine Sodium (Synthroid) 75 mcg PO DAILY@0600 [facility] Last Admin: 04/06/20 05:26 Dose: 75 mcg Documented by: Midodrine (Proamatine) 10 mg PO 0600,1200,1800 [facility] Last Admin: 04/06/20 11:46 Dose: 10 mg Documented by: Potassium Chloride (K-Dur) 40 meq PO DAILYCM [facility] Last Admin: 04/06/20 08:08 Dose: 40 meq Documented by: Sodium Chloride () 10 - 40 ml IV UD PRN PRN Reason: SALINE FLUSH Last Admin: 04/05/20 08:08 Dose: 10 ml Documented by: Medical Necessity - Tobacco Use Smoking Status: Former smoker Assessment/Plan All Active Problems (Last Reviewed 04/04/20 @ 11:[address] Russel Byrne, DO) Syncope and collapse (Acute) Occipital scalp laceration (Acute) Scalp laceration (Acute) 1. Syncope * Secondary to orthostatic hypotension * Those unwitnessed, patient has a history of orthostatic hypotension and patient was urinating when this occurred. Patient may have amnesia as he did hit his head though patient is not demonstrating any postconcussive symptoms at this time. And since patient came too quickly, felt unlikely to be seizure. * Pacer interogation was negative for arrhythmia * DC tamsulosin * add fludrocortisone. Patient was concerned about glaucoma as he has been on prednisone for a skin condition. I advised him to take it as he still orthostatic with frequent falls. I acknowledged the risk of glaucoma, but that the risk would be less than prednisone. He did agree to it. 2. Posterior scalp laceration * Status post fall * Stapled in place * Follow-up primary care doctor in 7 to 10 days to have catherine removed 3. Somnolence * dtr notes pt has been more somnolent since starting levetiracetam * DW SOC teleneurology. He recommended cutting dose back to 250 BID. He states that it is not clear patient every had a seizure, though he is concerned for a parkinson-type disorder and recommended outpt neurology evaluation. 4. Chronic conditions: Coronary artery disease, hypothyroidism, hyperlipidemia, osteoarthritis. * Overall stable but overall complicate patient's care. 5. Atrial fibrillation: Anticoagulated on apixaban. Continue with amiodarone and digoxin. 6. VTE prophylaxis: Not indicated as patient is already anticoagulated. Than 35 minutes of which greater than 50% of time was discussing with patient about orthostatic hypotension, fludrocortisone risks and benefits. Inpatient E&M: [id number] [facility] Hosp L3
[2020-04-06] MEDS: Atorvastatin Calcium 40 MG Tablet PO (22:28)
[2020-04-06] MEDS: Latanoprost 0.005% 1 Bottle 1 DRP EACH EYE (22:28)
[2020-04-07] VITALS (13 sets, daily range): BP systolic 71–164; BP diastolic 45–108; PULSE 62–84; RESP 16–18; TEMP 36.3–37.1; O2SAT 97–100
[2020-04-07] MEDS: Midodrine HCl 5 MG Tablet 10 MG PO ×3 (05:13→17:07)
[2020-04-07] MEDS: Levothyroxine 75 MCG Tablet PO (05:13)
[2020-04-07] MEDS: Fludrocortisone Acetate 0.1 MG Tablet PO (08:12)
[2020-04-07] MEDS: Amiodarone 200 MG Tablet PO ×2 (08:12→21:23)
[2020-04-07] MEDS: Digoxin 125 MCG Tablet PO (08:12)
[2020-04-07] MEDS: APIXABAN 2.5 MG TABLET PO ×2 (08:12→21:24)
[2020-04-07] MEDS: levETIRAcetam 250 MG Tablet PO ×2 (08:15→21:23)
--- NOTE | 2020-04-07 08:32 | PCM.PN.HOSP ---
Patient Problems: Active and Suspected Problems (Last Reviewed 04/04/20 @ 11:[address] Russel Byrne, DO) Occipital scalp laceration (Acute) Scalp laceration (Acute) Reason for Visit: syncope Subjective: Upham ok when his orthostatic vitals were performed today, though he dropped from 141/102 lying to 71/45 standing. Orthostats not performed in the afternoon, because he was already profoundly dizzy with standing. Vitals/I&O's: Vital Signs Temp Pulse Resp BP Pulse Ox 37.1 C 74 16 141/102 H 97 04/07/20 05:01 04/07/20 08:12 04/07/20 05:01 04/07/20 05:01 04/07/20 05:01 Oxygen Delivery Method Room Air Weight: 78 kg Body Mass Index (BMI) 22.1 Finger Stick Blood Glucose 115 Orthostatic Vital Signs Start: 04/04/20 14:33 Freq: q24h Status: Active Protocol: Activity Type Activity Date Activity User E-Sign Co-Sign Detail Recorded Client Recorded Date Recorded By Document 04/07/20 05:01 [facility] [id number] 04/07/20 05:02 LOTUS 04/07/20 05:01 Orthostatic Vitals Standing -Blood Pressure (90/60-120/80) 71/45 L -Extremity Use Right Arm -Pulse Rate (60-100) 62 Sitting -Blood Pressure (90/60-120/80) 96/69 -Extremity Use Right Arm -Pulse Rate (60-100) 68 Lying -Blood Pressure (90/60-120/80) 141/102 H -Extremity Use Right Arm -Pulse Rate (60-100) 74 Intake and Output for Last 24 Hours 04/05/20 04/06/20 04/07/20 23:59 23:59 23:59 Intake Total 2050 / 2250 850 / 850 340 / 340 Output Total 1475 / 1700 950 / 950 350 / 350 Balance 575 / 550 -100 / -100 -10 / -10 General: Alert, No apparent distress, - - hard of hearing HEENT: Atraumatic, Normocephalic Oral: Moist Mucosa, No Gingival or Mucosal Lesions/ Ulcerations Neck: No Nodes, Thyroid Normal Size and Texture Lungs: Clear to auscultation, Normal air movement, No rhonchi, No wheeze Cardiovascular: Regular rate, Regular Rhythm, Normal S1, Normal S2, No murmurs Abdomen: Bowel Sounds Present, Soft, Non Tender, Non-Distended, No Hepato-splenomegaly Extremities: No edema, No Calf Tenderness Skin: No rashes, No breakdown Laboratory Results 04/07/20 07:20: Cortisol 14.40 Current Medications Acetaminophen (Tylenol) 650 mg PO Q6H PRN PRN PRN Reason: Pain Score 1-10/Temp > 100.7 F Last Admin: 04/05/20 05:24 Dose: 650 mg Documented by: Amiodarone HCl (Cordarone) 200 mg PO BID [facility] Last Admin: 04/07/20 08:12 Dose: 200 mg Documented by: Apixaban (Eliquis) 2.5 mg PO BID [facility] Last Admin: 04/07/20 08:12 Dose: 2.5 mg Documented by: Atorvastatin Calcium (Lipitor) 40 mg PO QHS [facility] Last Admin: 04/06/20 22:28 Dose: 40 mg Documented by: Digoxin (Lanoxin) 125 mcg PO DAILY [facility] Last Admin: 04/07/20 08:12 Dose: 125 mcg Documented by: Fludrocortisone Acetate (Florinef) 0.1 mg PO DAILY@0800 [facility] Last Admin: 04/07/20 08:12 Dose: 0.1 mg Documented by: Sodium Chloride () 250 mls @ 15 mls/hr IV .[id number] PRN PRN Reason: Saline Flush Sodium Chloride () 250 mls @ 15 mls/hr IV .[id number] PRN PRN Reason: Additional IVPB Infusion Latanoprost (Xalatan Opthalmic) 1 drop EACH EYE QHS [facility] Last Admin: 04/06/20 22:28 Dose: 1 drop Documented by: Levetiracetam (Keppra Tablet) 250 mg PO BID [facility] Last Admin: 04/07/20 08:15 Dose: 250 mg Documented by: Levothyroxine Sodium (Synthroid) 75 mcg PO DAILY@0600 [facility] Last Admin: 04/07/20 05:13 Dose: 75 mcg Documented by: Midodrine (Proamatine) 10 mg PO 0600,1200,1800 [facility] Last Admin: 04/07/20 05:13 Dose: 10 mg Documented by: Potassium [facility] ([facility]) [facility] Last Admin: 08/20/20 08:12 Dose: 40 meq Documented by: Sodium Chloride () 10 - 40 ml IV UD PRN PRN Reason: SALINE FLUSH Last Admin: 04/05/20 08:08 Dose: 10 ml Documented by: STROKE Vital Signs/Narrative: Vital Signs Temp Pulse Pulse Pulse Pulse Resp BP 04/07/20 08:12 74 04/07/20 07:17 72 04/07/20 05:01 37.1 C 74 74 68 62 16 141/102 H BP BP BP Pulse Ox 04/07/20 08:12 04/07/20 07:17 04/07/20 05:01 141/102 H 96/69 71/45 L 97 Medical Necessity - Tobacco Use Smoking Status: Former smoker Assessment/Plan All Active Problems (Last Reviewed 04/04/20 @ 11:[address] Russel Byrne, DO) Syncope and collapse (Acute) Occipital scalp laceration (Acute) Scalp laceration (Acute) 1. Syncope Secondary to orthostatic hypotension Those unwitnessed, patient has a history of orthostatic hypotension and patient was urinating when this occurred. Patient may have amnesia as he did hit his head though patient is not demonstrating any postconcussive symptoms at this time. And since patient came too quickly, felt unlikely to be seizure. Pacer interogation was negative for arrhythmia DC tamsulosin add fludrocortisone. Patient was concerned about glaucoma as he has been on prednisone for a skin condition. I advised him to take it as he still orthostatic with frequent falls. I acknowledged the risk of glaucoma, but that the risk would be less than prednisone. He did agree to it. will recheck orthostats again today and assess. 2. Posterior scalp laceration Status post fall Stapled in place Follow-up primary care doctor in 7 to 10 days to have catherine removed 3. Somnolence dtr notes pt has been more somnolent since starting levetiracetam DW SOC teleneurology. He recommended cutting dose back to 250 BID. He states that it is not clear patient every had a seizure, though he is concerned for a parkinson-type disorder and recommended outpt neurology evaluation. so far, tolerating change. 4. Chronic conditions: Coronary artery disease, hypothyroidism, hyperlipidemia, osteoarthritis. Overall stable but overall complicate patient's care. 5. Atrial fibrillation: Anticoagulated on apixaban. Continue with amiodarone and digoxin. 6. VTE prophylaxis: Not indicated as patient is already anticoagulated. Inpatient E&M: [id number] [facility] Hosp L2
--- NOTE | 2020-04-07 08:59 | NURSING ---
Dr Stanford's office called, pt had CT of abd and pelvis ordered today as outpatient due to gross hematuria. as pt is not currently having symptoms, Dr Byrne wanted pt to continue to follow up as outpatient. CT and Dr Stanford office notified that CT scan will not be completed today.
--- NOTE | 2020-04-07 11:16 | NURSING ---
While completing orthostatic vital signs patient was unable to stand entire time while BP was taking. Sat patient down in chair and BP completed 73/56.
--- NOTE | 2020-04-07 14:02 | CASEMGMT ---
Addendum entered by Karina Pizarro 04/07/20 14:25: Pt's daughter Hetal requesting to speak to this worker. Hetal asked what are the chances of pt getting to RU? PRITI explained that it just depends if the RU physician feels pt is appropriate or not for RU and if pt can do that level of care. PRITI explained that RU physician is gone for the day, will not be back until tomorrow, so referral will not be able to be reviewed until tomorrow. Hetal states she is leaning towards RU as they allow visitors. Hetal asked what are the restrictions going to be lifted? SW explained that this worker has no way of knowing that and it is the governor who is requiring all of these restrictions for nursing homes at this time. SW explained that this worker has pt both on RU and TCU list and once this worker knows tomorrow whether RU is able to accept, this worker will let Hetal and pt know. Hetal states understanding. Addendum entered by Karina Pizarro 04/07/20 14:11: SW did provide pt and Hetal with list of SNF that accept pt's insurance. Original Note: Social Work Note SW updated that pt may need SNF at discharge. SW in to speak with pt and pt's daughter Hetal present at [facility]. SW spoke with pt and Hetal regarding SNF and RU. SW explained differences between SNF and RU. Pt initially states agreeable to TCU but pt's daughter Hetal states she would like time to speak with pt regarding options. PRITI explained that allows visitors and TCU and every other SNF doesn't allow visitors at this time. PRITI explained 14 day quarantine at SNF. SW informed pt and Hetal that TCU would have a bed for pt tomorrow if they decide to go with TCU. PRITI explained that this worker could also put pt on RU list and see if pt would qualify for RU. Pt and Hetal agreeable to being put on TCU list and RU list. Hetal again states she would like time to speak to pt regarding options. Hetal also asked about HHC for pt. Hetal states pt was active with HHC before coming to [facility]. PRITI explained that HHC would not come to pt's home everyday so if pt and her think pt needs every day care and therapy then pt would need to go to SNF/RU. Hetal states understanding, would like time to make a decision. PRITI placed a call to Susi in TCU, Susi confirms she would have a bed for pt tomorrow. PRITI also placed a call to Cynthia with RU to determine if pt would qualify for RU. Cynthia states she will check with RU physician. Plan: TBD. Home with HHC vs TCU vs RU Pt and pt's daughter Hetal would like to discuss options and let this worker know tomorrow what they decided. Karina Pizarro MEDICAL SCIENTIST, [employer]SEMBLER
[2020-04-07] MEDS: Atorvastatin Calcium 40 MG Tablet PO (21:24)
[2020-04-07] MEDS: Latanoprost 0.005% 1 Bottle 1 DRP EACH EYE (21:24)
[2020-04-08] VITALS (8 sets, daily range): BP systolic 109–171; BP diastolic 70–99; PULSE 59–103; RESP 16–18; TEMP 36.7–37.1; O2SAT 98–100
[2020-04-08] MEDS: Levothyroxine 75 MCG Tablet PO (05:56)
[2020-04-08] MEDS: Midodrine HCl 5 MG Tablet 10 MG PO ×2 (05:56→12:59)
--- NOTE | 2020-04-08 08:58 | NURSING ---
Patient called out requesting help using the bathroom. This nurse assisted patient to use urinal, change attends, provide a bedbath with a bathpack, change patient's gown and reposition the patient on right side. patient declined further needs, stated that he felt comfortable, call light within reach.
--- NOTE | 2020-04-08 09:02 | PCM.TXEXTCAR ---
- Diet 04/04/20 13:03 Diet: Regular - General Food consistency:: Regular Liquid Consistency:: Regular/Thin Diet Comments: add salt packets, added salt encouraged. - Routine Orders/Code Status Code Status: [facility] - Wound(s) back of head Wound Type: Laceration - remove catherine on scalp between 04/11- posterior rt elbow Wound Type: Laceration - Therapies Physical Therapy: Eval and Treat Occupational Therapy: Eval and Treat - Problem/Diagnosis (1) Scalp laceration Status: Acute Current Visit: Yes (2) Syncope and collapse Status: Acute Current Visit: No (3) Atrial fibrillation Status: Chronic Current Visit: No (4) Orthostatic hypotension Status: Chronic Current Visit: No (5) Occipital scalp laceration Status: Acute Current Visit: Yes (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 Status: Chronic Current Visit: No (7) TIA (transient ischemic attack) Status: Chronic Current Visit: No (8) Chronic a-fib Status: Chronic Current Visit: No (9) Ventricular tachycardia Status: Chronic Current Visit: No (10) Cardiomyopathy, dilated, nonischemic Status: Chronic Current Visit: No (11) Atherosclerotic heart disease of [place] coronary artery without angina pectoris Status: Chronic Comment: [id number] LAD 09/21/2004 Current Visit: No (12) History of coronary artery stent placement Status: Chronic Comment: [id number] LAD 09/21/2004 Current Visit: No (13) Longstanding persistent atrial fibrillation Status: Chronic Current Visit: No (14) Presence of permanent cardiac pacemaker Status: Chronic Comment: Permanent Pacemaker insertion, single chamber 10/17/15, [employer] Current Visit: No (15) Essential (primary) hypertension Status: Chronic Current Visit: No (16) Hyperlipidemia Status: Chronic Current Visit: No (17) Bundle branch block, right Status: Chronic Current Visit: No - Allergies/Procedures Done in Hospital Allergies/Adverse Reactions: Allergies hydrochlorothiazide Adverse Reaction (Intermediate, Verified 04/04/20 05:17) syncope Procedures: None - Type of Care/Length of Stay Estimated LOS: Convalescent Care Less Than 30 days Type of Care Needed: Skilled Rehab Potential: Fair Prognosis: Fair - Additional Orders/Day of Discharge Additional Orders: Wear Nacho hose while up. Get up slowly for activity. Day of Discharge: 04/08/20 - Follow Up Care Primary Care Physician: Dariusz Gonzalez Chi, MD [Primary Care Provider] - 5 Days for suture removal Please Follow Up With: Garrick Mccoy MD When: 4-6 weeks. Neurology.
--- NOTE | 2020-04-08 09:08 | PCM.DC.SUM ---
Discharge Date and Diagnosis - Problem List Patient Problems: Active and Suspected Problems (Last Reviewed 04/04/20 @ 11:[address] Russel Byrne DO) Occipital scalp laceration (Acute) Scalp laceration (Acute) Date of Admission: 04/04/20 Date of Discharge: 04/08/20 - Primary Discharge Diagnosis Acute Problems: Active Problems (Last Reviewed 04/04/20 @ 11:[address] Russel Byrne DO) 1. Syncope Secondary to orthostatic hypotension Those unwitnessed, patient has a history of orthostatic hypotension and patient was urinating when this occurred. Patient may have amnesia as he did hit his head though patient is not demonstrating any postconcussive symptoms at this time. And since patient came too quickly, felt unlikely to be seizure. Pacer interogation was negative for arrhythmia DC tamsulosin Fludrocortisone 0.2. Patient was concerned about glaucoma as he has been on prednisone for a skin condition. I advised him to take it as he still orthostatic with frequent falls. I acknowledged the risk of glaucoma, but that the risk would be less than prednisone. He did agree to it. will recheck orthostats again today and assess. continue midodrine 10mg TID 2. Posterior scalp laceration Status post fall Stapled in place Follow-up primary care doctor in 7 to 10 days to have catherine removed 3. Somnolence dtr notes pt has been more somnolent since starting levetiracetam DW [facility] teleneurology. He recommended cutting dose back to 250 BID. He states that it is not clear patient every had a seizure, though he is concerned for a parkinson-type disorder and recommended outpt neurology evaluation. so far, tolerating change. - Secondary Discharge Diagnosis Chronic Problems: Chronic Problems (Last Reviewed 04/04/20 @ 11:[address] 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 Otherwise no significant change in CT of the brain. No acute intracranial abnormality. Electronically Signed: Richard Coyne MD at 6:10 EDT , Service support , Cervical Spine CT 04/04/20 05:42 IMPRESSION: Stable CT of the cervical spine, no acute fracture. Old odontoid fracture. Multilevel degenerative changes. Electronically Signed: Richard Coyne MD at 6:27 EDT , Service support , SOC teleneurology. Operations: None Summary of Care Provided: The patient is a 84 year old M presents with syncopal episode. Patient was up the bathroom and then he went out. Patient hit his head and sustained a posterior occipital laceration. Patient presented to the emergency room where he had a head CT that showed no intracranial hemorrhage but did show a soft tissue hematoma. Patient did have it stapled in place. Patient single episode is due to orthostatic hypotension. Patient has evaluated for seizures and had previously an abnormal EEG but was not entirely convincing for seizure disorder but was started on levetiracetam. Daughter was concerned that the levetiracetam was causing patient to be somnolent so [facility] tele-neurology was consulted. I spoke with the neurologist to was convinced the patient did have a seizure disorder but was okay with a decreasing levetiracetam from 500-250 twice daily but he was concerned about Parkinson's or Parkinson type disorder given concern for mast feces and recommended a neurology follow-up for evaluation of is a movement disorder. Patient further orthostatic hypotension has been continued on his midodrine. I did start patient on fludrocortisone but patient was reticent because of concern for glaucoma. Patient was concerned about glaucoma because he has been on prednisone due to skin lesions in the past which apparently caused him to have glaucoma. I discussed with the patient about the risks and benefits of the fludrocortisone and did recommend it. He was in agreement and will take it. Patient still does have orthostatic hypotension but the degree of drop is improved. In regards to medications he is essentially maxed out with the 10 mg 3 times daily Midrin as well as 0.2 mg of fludrocortisone. Patient will need to have increased salt in his diet and also wearing Nacho compression hose when he is up to help mitigate his symptoms. 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 [] Patient Problems: Active and Suspected Problems (Last Reviewed 04/04/20 @ 11:[address] Russel Byrne, DO) Occipital scalp laceration (Acute) Scalp laceration (Acute) - Physical Exam Vitals/I&O's: Vital Signs Temp Pulse Resp BP Pulse Ox 37.1 C 59 L 16 171/99 H 100 04/08/20 08:34 04/08/20 08:34 04/08/20 08:34 04/08/20 08:34 04/08/20 08:34 Oxygen Delivery Method Room Air Weight: 78 kg Body Mass Index (BMI) 22.1 Finger Stick Blood Glucose 115 Orthostatic Vital Signs Start: 04/04/20 14:33 Freq: q24h Status: Active Protocol: Activity Type Activity Date Activity User E-Sign Co-Sign Detail Recorded Client Recorded Date Recorded By Document 04/08/20 08:32 CHARISSA [id number] 04/08/20 08:33 CHARISSA 04/08/20 08:32 Orthostatic Vitals Standing -Blood Pressure (90/60-120/80) 109/70 -Extremity Use Left Arm -Pulse Rate (60-100) 73 Sitting -Blood Pressure (90/60-120/80) 126/87 H -Extremity Use Left Arm -Pulse Rate (60-100) 87 Lying -Blood Pressure (90/60-120/80) 171/99 H -Extremity Use Left Arm -Pulse Rate (60-100) 59 L Intake and Output for Last 24 Hours 04/06/20 04/07/20 04/08/20 23:59 23:59 23:59 Intake Total 850 / 850 940 / 940 Output Total 950 / 950 550 / 750 500 / 500 Balance -100 / -100 390 / 190 -500 / -500 General: Alert, No apparent distress Lungs: Clear to auscultation, Normal air movement, No rhonchi, No rales Cardiovascular: Regular rate, Regular Rhythm, Normal S1, Normal S2 Current Medications Acetaminophen (Tylenol) 650 mg PO Q6H PRN PRN PRN Reason: Pain Score 1-10/Temp > 100.7 F Last Admin: 04/05/20 05:24 Dose: 650 mg Documented by: Amiodarone HCl (Cordarone) 200 mg PO BID [facility] Last Admin: 04/07/20 21:23 Dose: 200 mg Documented by: Apixaban (Eliquis) 2.5 mg PO BID [facility] Last Admin: 04/07/20 21:24 Dose: 2.5 mg Documented by: Atorvastatin Calcium (Lipitor) 40 mg PO QHS [facility] Last Admin: 04/07/20 21:24 Dose: 40 mg Documented by: Digoxin (Lanoxin) 125 mcg PO DAILY [facility] Last Admin: 04/07/20 08:12 Dose: 125 mcg Documented by: Fludrocortisone Acetate (Florinef) 0.2 mg PO DAILY@0800 [facility] Sodium Chloride () 250 mls @ 15 mls/hr IV .[id number] PRN PRN Reason: Saline Flush Sodium Chloride () 250 mls @ 15 mls/hr IV .[id number] PRN PRN Reason: Additional IVPB Infusion Latanoprost (Xalatan Opthalmic) 1 drop EACH EYE QHS [facility] Last Admin: 04/07/20 21:24 Dose: 1 drop Documented by: Levetiracetam (Keppra Tablet) 250 mg PO BID [facility] Last Admin: 04/07/20 21:23 Dose: 250 mg Documented by: Levothyroxine Sodium (Synthroid) 75 mcg PO DAILY@0600 [facility] Last Admin: 04/08/20 05:56 Dose: 75 mcg Documented by: Midodrine (Proamatine) 10 mg PO 0600,1200,1800 [facility] Last Admin: 04/08/20 05:56 Dose: 10 mg Documented by: Potassium Ch[facility] ([facility]) [facility] Last Admin: 04/07/20 08:12 Dose: 40 meq Documented by: Sodium Chloride () 10 - 40 ml IV UD PRN PRN Reason: SALINE FLUSH Last Admin: 04/05/20 08:08 Dose: 10 ml Documented by: Discharge Diet: No Restrictions Call your doctor if you observe: Fainting spells, - Home Medications: Medications to take at Discharge Latanoprost 0.005% [Xalatan Opthalmic] 1 drp EACH EYE QHS 07/31/18 Acetaminophen [Tylenol] 500 mg PO DAILY PRN PRN 03/14/20 Apixaban [Eliquis] 2.5 mg PO BID 03/14/20 Atorvastatin Calcium [Lipitor] 40 mg PO DAILY@2200 03/14/20 Levothyroxine Sodium [Synthroid] 75 mcg PO DAILY 03/14/20 Potassium Chloride [K-Dur] 40 meq PO DAILYCM 03/14/20 levETIRAcetam tablet [Keppra tablet] 500 mg PO BID #60 tab 03/15/20 Amiodarone HCl [Cordarone] 200 mg PO BID #60 tab 03/16/20 Digoxin [Lanoxin] 125 mcg PO DAILY #30 tab 03/16/20 midodrine 10 mg tablet 10 mg PO TID 04/01/20 Fludrocortisone Acetate [Florinef] 0.2 mg PO DAILY@0800 #0 tab 04/08/20 Primary Care Physician: Dariusz Gonzalez Chi, MD [Primary Care Provider] - 5 Days for suture removal Please Follow Up With: Garrick Mccoy MD When: 4-6 weeks. Neurology. Patient Instructions: ED Head Injury Adult, ED Laceration Scalp Sutures or [place] Disposition: Nursing Home facility Minutes spent on discharge:: 35 Patient Condition:: Fair Medical Necessity - Tobacco Use Smoking Status: Former smoker Meaningful Use Info Meaningful Use Diagnoses (Choose all that apply): None applicable Inpatient E&M: 08222 Disch Hosp
[2020-04-08] MEDS: Fludrocortisone Acetate 0.1 MG Tablet 0.2 MG PO (10:02)
[2020-04-08] MEDS: APIXABAN 2.5 MG TABLET PO (10:02)
[2020-04-08] MEDS: Amiodarone 200 MG Tablet PO (10:02)
[2020-04-08] MEDS: Digoxin 125 MCG Tablet PO (10:03)
[2020-04-08] MEDS: levETIRAcetam 250 MG Tablet PO (10:03)
--- NOTE | 2020-04-08 10:03 | CASEMGMT ---
Addendum entered by Karina Pizarro 04/08/20 11:24: SW in to speak with pt. Pt agreeable to TCU. Pt states that his daughter should be in to [facility] today. SW updated pt that he will likely discharge to TCU today. SW will wait to see if pt's daughter arrives to [facility], if not this worker will call. Original Note: Social Work Note PRITI received message from Cynthia with [facility], pt not accepted to [facility]. PRITI placed a call to Susi in TCU, Susi confirms she still has a bed available in TCU. PRITI will meet with pt and pt's daughter when pt's daughter arrives to [facility]. Plan: Likely TCU today Karina Pizarro DATA TECHNICAL LEAD, APPLICATION PENETRATION TESTER
--- NOTE | 2020-04-08 11:20 | PHA.DC.MR ---
Pharmacy Service has performed discharge medication reconciliation for this patient upon transfer to [facility]. The patient's discharge medication list was reviewed for discrepancies and discrepancies were resolved. Home Medications Latanoprost 0.005% [Xalatan Opthalmic] 1 drp EACH EYE QHS 07/31/18 Acetaminophen [Tylenol] 500 mg PO DAILY PRN PRN 03/14/20 Apixaban [Eliquis] 2.5 mg PO BID 03/14/20 Atorvastatin Calcium [Lipitor] 40 mg PO DAILY@2200 03/14/20 Levothyroxine Sodium [Synthroid] 75 mcg PO DAILY 03/14/20 Potassium Chloride [K-Dur] 40 meq PO DAILYCM 03/14/20 levETIRAcetam tablet [Keppra tablet] 500 mg PO BID #60 tab 03/15/20 Amiodarone HCl [Cordarone] 200 mg PO BID #60 tab 03/16/20 Digoxin [Lanoxin] 125 mcg PO DAILY #30 tab 03/16/20 midodrine 10 mg tablet 10 mg PO TID 04/01/20 Fludrocortisone Acetate [Florinef] 0.2 mg PO DAILY@0800 #0 tab 04/08/20
--- NOTE | 2020-04-08 11:45 | CASEMGMT ---
Social Work Note Pt's daughter Mar is at [facility] requesting to speak to this worker. SW in to speak with Mar. SW discussed discharge plans with Mar. Mar asked for clarification on visitation policy at [facility]. SW explained no visitors at this time due to governor's orders. SW explained facetimes and phone calls are able to be completed. Mar then asked about Hospice and this worker informed Mar that this worker is not sure if pt qualifies for Hospice services. SW asked Mar what led to Hospice being brought up and what is Mar not sure of when it comes to [facility]. Mar states it's the visitation policy. I am not sure pt understands the visitor policy. SW explained that this worker can speak with pt again regarding visitation policy. 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 SW explained that this worker can have pt complete HCPOA and LW while pt is here at [facility] if pt is agreeable. SW explained that this worker will need to review documents with pt and hear from pt himself who he would like to be HCPOA and LW decisions. Mar states she would like pt to complete documents and would like three copies of documents. SW explained that this worker will check in with pt regarding completing documents. Mar asked to be given some time to think about discharge options for pt. SW explained that this worker will follow up with Mar and pt soon. SW did explain that per earlier conversations with pt, pt was agreeable to [facility] for rehabilitation. SW to follow up with Mar and pt. Karina Pizarro WELT BEATER, HOSPICE EDUCATOR
--- NOTE | 2020-04-08 12:57 | CASEMGMT ---
RN JAY and PRITI in to discuss discharge plans with patient and daughter Mar in room , grandfelecia Miller via phone. Patient is agreeable to go TCU after answering patient and family's questions. Patient and family would like to complete Advance Directive with patient. Patient and family have no further questions at this time.
[2020-04-08 13:50] LABS: Probe Check PASS; Specimen Processing Control PASS
--- NOTE | 2020-04-08 14:03 | CASEMGMT ---
Social Work Note SW present with RN JAY during previous discussion. Pt and Mar and pt's grandson Paul agreeable to [facility] TCU. Mar again asked for pt to complete HCPOA and LW documents. SW explained that this worker will come back and speak to pt alone to complete documents with pt. Mar states understanding. PRITI placed a call to Susi in TCU and left message that pt will be discharged to TCU today. Plan: TCU today Karina Pizarro GRAPHICS EDIT TECHNICIAN, STARS COORDINATOR
--- NOTE | 2020-04-08 14:19 | CASEMGMT ---
Social Work Note SW in to complete advanced directives with pt. Pt agreeable to completing documents. Pt's daughter Mar out in waiting room while documents are being completed. Pt completed documents. SW updated Mar that she is now able to return to pt's room. Mar asked for three copies of documents. Original and three copies provided to pt and Mar and copy placed on pt's chart. Karina Pizarro ELEMENTARY SUPERVISOR, BLACK TOP RAKER
== END 2020-04-08 16:15 | disposition skilled nursing facility (03) | DRG 312 ==
LOC: ED 07:04 → MS3 11:47
PROVIDERS: Emergency Medicine; Emergency Provider Emergency Medicine; PCP Family Medicine Geriatric Medicine
DX: I95.1 Orthostatic hypotension (principal); I42.0 Dilated cardiomyopathy; I48.11 Longstanding persistent atrial fibrillation; I47.2 Ventricular tachycardia; G25.9 Extrapyramidal and movement disorder, unspecified; S01.01XA Laceration without foreign body of scalp, initial encounter; S16.1XXA Strain of muscle, fascia and tendon at neck level, initial encounter; Z79.899 Other long term (current) drug therapy; W18.30XA Fall on same level, unspecified, initial encounter; Z91.81 History of falling; Y93.01 Activity, walking, marching and hiking; Y92.9 Unspecified place or not applicable; Z79.01 Long term (current) use of anticoagulants; Z86.73 Personal history of transient ischemic attack (TIA), and cerebral infarction without residual deficits; I25.10 Atherosclerotic heart disease of native coronary artery without angina pectoris; Z95.5 Presence of coronary angioplasty implant and graft; Z87.891 Personal history of nicotine dependence; I10 Essential (primary) hypertension; E78.5 Hyperlipidemia, unspecified; I45.10 Unspecified right bundle-branch block; M19.90 Unspecified osteoarthritis, unspecified site; Z87.19 Personal history of other diseases of the digestive system; R40.0 Somnolence; E03.9 Hypothyroidism, unspecified; Z95.0 Presence of cardiac pacemaker
CPT/HCPCS: 36415; 70450; 72125; 80048; 82533; 83735; 84443; 85025; 87635; 94799; 97110; 97116; 97162; 97166; 97530; 99285; J7040; A4216; U0003

== ENCOUNTER 2020-04-08 16:27 | Inpatient (IN) | payer MEDICARE, OTHER, SELFPAY ==
[2020-04-04 12:46] VITALS: BMI 22.1
[2020-04-08 16:36] VITALS: BP 136/102; PULSE 58; RESP 18; TEMP 36.3; O2SAT 97; BMI 22.3
[2020-04-08 18:57] VITALS: BP 130/87; PULSE 69
[2020-04-08] MEDS: Midodrine HCl 5 MG Tablet 10 MG PO (18:58)
[2020-04-08] MEDS: levETIRAcetam 500 MG Tablet PO (18:58)
[2020-04-08] MEDS: Amiodarone 200 MG Tablet PO (18:59)
[2020-04-08] MEDS: APIXABAN 2.5 MG TABLET PO (18:59)
--- NOTE | 2020-04-08 20:14 | HP.PCM_ITS ---
Problem List (1) Debility Status: Acute (2) Syncope Status: Acute (3) Parkinson's plus syndrome Status: Acute (4) Coronary artery disease Status: Chronic (5) Hypertension Status: Chronic (6) Glaucoma Status: Chronic (7) Hypothyroidism Status: Chronic (8) Hypokalemia Status: Chronic (9) Seizure disorder Status: Chronic (10) BPH (benign prostatic hyperplasia) Status: Chronic (11) Atrial fibrillation Status: Chronic Qualifiers: (12) Orthostatic hypotension Status: Chronic (13) Scalp laceration Status: Acute (14) TIA (transient ischemic attack) Status: Chronic (15) Hyperlipidemia Status: Chronic Qualifiers: History of Present Illness Date of Admission: 04/08/20 Chief Complaint: Here for rehabilitation, strengthening, prior to discharge home with family, daughter Mar. 04/04/2020 The patient is a 84 year old Male with below past medical history presented to [facility] Emergency Department with fall. 04/04/2020 CT brain left posterior parietal scalp swelling. 04/04/2020 CT cervical spine old odontoid fracture, multilevel degenerative changes. Going to bathroom, passed out, hit back of head. Neck pain, aching, on Eliquis for atrial fibrillation. Left scalp laceration, repaired with 5 catherine. 04/04/2020 Admit to Hospital. Check orthostatic vital signs. Check pacemaker. 04/05/2020 Teleneurology for somnolence. Decrease Keppra from 500MG twice daily to 250MG twice daily, seizure diagnosis questionable. Consider Lewy Body Dementia, Parkinson Plus Syndrome. 04/05/2020 Stop Tamsulosin due to orthostatic hypotension. 04/06/2020 Continue Midodrine 10MG TID, Add Fludrocortisone, risk of worsening glaucoma acceptable. 04/07/2020 Still orthostatic. Fludrocortisone increased to 0.2MG daily. Continue Midodrine 10MG TID. PT/OT recommend Long-Term Facility. Admit to TCU with debility, here for rehabilitation, strengthening, prior to discharge home with family. Past Medical History Past Medical History (Chronic Problems): Chronic Problems (Last Reviewed 04/04/20 @ 11:[address] 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) TIA (transient ischemic attack) (Chronic) Chronic a-fib (Chronic) Ventricular tachycardia (Chronic) Cardiomyopathy, dilated, nonischemic (Chronic) Atherosclerotic heart disease of [place] coronary artery without angina pectoris (Chronic) [id number] LAD 09/21/2004 History of coronary artery stent placement (Chronic 09/21/04) [id number] LAD 09/21/2004 Longstanding persistent atrial fibrillation (Chronic) 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 Russel Byrne, DO) Cardiomyopathy, dilated, nonischemic (Chronic) I42.0 Atherosclerotic heart disease of [place] coronary artery without angina pectoris (Chronic) I25.10 [id number] LAD 09/21/2004 Longstanding persistent atrial fibrillation (Chronic) I48.11 Essential (primary) hypertension (Chronic) I10 Hyperlipidemia (Chronic) E78.5 Bundle branch block, right (Chronic) I45.10 Glaucoma H40.9 History of 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 Onset Date: 09/13/08 Z86.79 09/13/2008 Hypothyroidism E03.9 Osteoarthritis M19.90 Lower GI bleed K92.2 Allergies hydrochlorothiazide Adverse Reaction (Intermediate, Verified 04/04/20 05:17) syncope Home Medications: Ambulatory Orders Medication Instructions Recorded Latanoprost 0.005% [Xalatan 1 drp EACH EYE QHS 07/31/18 Opthalmic] Acetaminophen [Tylenol] 500 mg PO DAILY PRN PRN 03/14/20 Apixaban [Eliquis] 2.5 mg PO BID 03/14/20 Atorvastatin Calcium [Lipitor] 40 mg PO DAILY@219903/14/20 Levothyroxine Sodium [Synthroid] 75 mcg PO DAILY 03/14/20 Potassium Chloride [K-Dur] 40 meq PO DAILYCM 03/14/20 midodrine 10 mg tablet 10 mg PO TID 04/01/20 Amiodarone HCl [Cordarone] 200 mg PO BID 04/08/20 Digoxin [Lanoxin] 125 mcg PO DAILY 04/08/20 Fludrocortisone Acetate [Florinef] 0.2 mg PO DAILY@0800 04/08/20 levETIRAcetam tablet [Keppra 500 mg PO BID 04/08/20 tablet] Surgical History: Surgical History (Last Reviewed 04/04/20 @ 11:[address] Russel Byrne DO) History of coronary artery stent placement (Chronic) Onset Date: 09/21/04 Z95.5 [id number] LAD 09/21/2004 Presence of permanent cardiac pacemaker (Chronic) Onset Date: 10/17/15 Z95.0 Permanent Pacemaker insertion, single chamber 10/17/15, [employer] History of bilateral cataract extraction Z98.41, Z98.42 History of bilateral knee replacement Z96.653 06/22/2014 History of craniotomy Onset Date: 09/13/08 Z98.890 09/13/08 for 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 History of radiofrequency ablation procedure for cardiac arrhythmia Z98.890 Surgical History: angioplasty - Cardiac stent., cataract, herniorrhaphy, pacemaker implantation, total knee arthroplasty, - - Neurosurgery for traumatic intracranial bleed 10 years ago or more Psychiatric History: No pertinent psych hx Lives: With Family - Lives with daughter Mar. Smoking Status: Former smoker Tobacco Use: Cigarettes Alcohol: None Drugs: None - *Family History Maternal Family History: Family History (Last Reviewed 04/04/20 @ 11:[address] Russel Byrne DO) Father CAD (coronary artery disease) Myocardial infarction Sudden cardiac Mother No problems noted. Uncle CAD (coronary artery disease) Sudden cardiac Myocardial infarction Other Heart disease History Items: - - Denies any market maternal family history including heart disease, diabetes or cancer. Paternal Family History: Family History (Last Reviewed 04/04/20 @ 11:[address] Russel Byrne DO) Father CAD (coronary artery disease) Myocardial infarction Sudden cardiac Mother No problems noted. Uncle CAD (coronary artery disease) Sudden cardiac Myocardial infarction Other Heart disease History Items: High Cholesterol, Heart Disease, Hypertension, - - father had mi at age 69 Review of Systems Constitutional: Denies: Chills, Fever, Weight Change HEENT: Denies: Head Aches, Sinus Congestion, Sinus Drainage Cardiovascular: Denies: Chest Pain, Palpitations Respiratory: Denies: Cough, Shortness of breath at rest, Sputum production Gastrointestinal: Denies: Abdominal Pain, Nausea, Vomiting Genitourinary: Denies: Dysuria Musculoskeletal: Denies: Joint Pain, Joint Tenderness Skin: Denies: Rash, Wounds Neurological: Denies: Numbness, Tingling, Focal weakness Psychiatric: Denies: Anxiety, Depression, Homicidal Ideations, Suicidal Ideations Hematologic/ Lymphatic: Denies: Easy Bruising, Easy Bleeding VTE Information - Inpt Only VTE Present on Admission: No VTE Mechan Device Prophylaxis: Knee High RADHA Hose VTE Pharm Prophylaxis ordered?: No Reason prophylaxis not ordered:: Treatment Not Indicated Patient Problems: Active and Suspected Problems (Last Reviewed 04/04/20 @ 11:[address] Russle Byrne, ) Debility (Acute) Syncope (Acute) Parkinson's plus syndrome (Acute) - Physical Exam Vitals/I&O's: Vital Signs Temp Pulse Resp BP Pulse Ox 97.3 F L 69 18 130/87 H 97 04/08/20 16:36 04/08/20 18:57 04/08/20 16:36 04/08/20 18:57 04/08/20 16:36 Oxygen Delivery Method Room Air Weight: 78.953 kg Body Mass Index (BMI) 22.3 Finger Stick Blood Glucose 115 General: Alert, Oriented x3, Cooperative HEENT: Atraumatic, PERRLA, EOMI, Normocephalic Neck: Supple, No JVD, Negative Carotid Bruits Lungs: Clear to auscultation, Normal air movement Cardiovascular: Regular rate, No murmurs Abdomen: Bowel Sounds Present, Soft, Non Tender Extremities: No edema, Capillary Refill Less than 3 Seconds Skin: No rashes, No breakdown Musculoskeletal: No Tenderness to Palpation of Joints or Extremities Neurological: Cranial nerves II-XII grossly intact Psych/Mental Status: Normal Affect, Appropriate Current Medications Acetaminophen (Tylenol) 500 mg PO DAILY PRN PRN PRN Reason: Pain 1-10 or Fever Amiodarone HCl (Cordarone) 200 mg PO BID [facility] Last Admin: 04/08/20 18:59 Dose: 200 mg Documented by: Apixaban (Eliquis) 2.5 mg PO BID [facility] Last Admin: 04/08/20 18:59 Dose: 2.5 mg Documented by: Atorvastatin Calcium (Lipitor) 40 mg PO DAILY@2200 [facility] Digoxin (Lanoxin) 125 mcg PO DAILY [facility] Fludrocortisone Acetate (Florinef) 0.2 mg PO DAILY@0800 [facility] Latanoprost (Xalatan Opthalmic) 1 drop EACH EYE QHS [facility] Levetiracetam (Keppra Tablet) 500 mg PO BID [facility] Last Admin: 04/08/20 18:58 Dose: 500 mg Documented by: Levothyroxine Sodium (Synthroid) 75 mcg PO DAILY@0600 [facility] Midodrine (Proamatine) 10 mg PO 0600,1200,1800 [facility] Last Admin: 04/08/20 18:58 Dose: 10 mg Documented by: Potassium Chloride (K-Dur) 40 meq PO DAILYCM [facility] Tuberculin PPD (Tubersol, Aplisol, Ppd) 5 tu ID X1 ONE Stop: 04/09/20 10:01 Tuberculin PPD (Tubersol, Aplisol, Ppd) 5 tu ID X1 ONE Stop: 04/16/20 10:01 Assessment/Plan All Active Problems (Last Reviewed 04/04/20 @ 11:[address] Russel Byrne, DO) Syncope and collapse (Acute) Occipital scalp laceration (Acute) Scalp laceration (Acute) Debility (Acute) Syncope (Acute) Parkinson's plus syndrome (Acute) 84 year old male with below past medical history hospitalized for syncope secondary to orthostatic hypotension due to Parkinson Plus syndrome, complicated by scalp laceration, admitted to TCU with debility, here for rehabilitation, strengthening, prior to discharge home with daughter. * Debility - PT/OT. * Pain - Tylenol 1000MG Q6H PRN pain (1-3). * Bowel - Miralax 17GM daily, Senna/colace 1 tablet BID, Dulcolax 10MG CT daily PRN. * Adult immunization - Administer Prevnar 13, Pneumovax 23, Fluzone as appropriate. * DVT prophylaxis - Not necessary, on Eliquis 2.5MG BID. * Atrial fibrillation - Amiodarone 200MG BID, Digoxin 125MCG daily, Eliquis 2.5MG BID. * Hyperlipidemia - Atorvastatin 40MG QHS. * Orthostatic hypotension - Midodrine 10MG TID, Florinef 0.2Mg daily, continue to titrate Florinef if dizziness recurs. As outpatient, consider Northera, tapering off Florinef, Midodrine. Northera has fewer side effects. Resident already has supine hypertension. * Glaucoma - Xalatan 0.005% 1 GTT OU QHS. * Seizure disorder - Keppra 250MG BID. * Hypothyroidism Levothyroxine 75MCG daily. * Hypokalemia - K-Dur 40MEQ daily. 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 * Dementia of Lewy Bodies - Unlikely, no dementia, no hallucinations. 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 I let him know he has 6 to 10 years to live, will most likely be wheelchair bound in 5 years, very little treatment available, save his current treatment. 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
[2020-04-08] MEDS: Atorvastatin Calcium 40 MG Tablet PO (21:27)
[2020-04-08] MEDS: Latanoprost 0.005% 1 Bottle 1 DRP EACH EYE (21:37)
[2020-04-09 06:20] VITALS: BP 145/104; PULSE 78; RESP 16; TEMP 36.1; O2SAT 98
[2020-04-09] MEDS: Polyethylene Glycol 3350 17 GM PACKET PO (06:21)
[2020-04-09] MEDS: Midodrine HCl 5 MG Tablet 10 MG PO ×3 (06:22→17:22)
[2020-04-09 06:23] VITALS: BP 145/104; PULSE 76
[2020-04-09] MEDS: Senna/Docusate Sodium 1 Tablet PO ×2 (06:23→17:24)
[2020-04-09] MEDS: Digoxin 125 MCG Tablet PO (06:23)
[2020-04-09] MEDS: APIXABAN 2.5 MG TABLET PO ×2 (06:24→17:21)
[2020-04-09] MEDS: Amiodarone 200 MG Tablet PO ×2 (06:24→17:21)
[2020-04-09] MEDS: levETIRAcetam 250 MG Tablet PO ×2 (06:24→17:22)
[2020-04-09] MEDS: Levothyroxine 75 MCG Tablet PO (06:24)
[2020-04-09 07:54] LABS: Absolute Lymphocyte Count 1.49 X10^3/uL (0.83-4.51); Basophil# 0.09 X10^3/uL; Basophil% 0.9 % (0-1); Eosinophils% 3.1 % (0-5); Lymphocyte # 1.49 X10^3/ul (4.0); Lymphocyte % 15.4 % (19-41); Mean Corpuscular Hgb 30.5 pg (27.0-32.0); Mean Corpuscular Volume 89.5 fL (80-94); Mean Platelet Vol. 10.2 fl (6.2-12.0); Monocyte# 0.75 X10^3/uL; Monocyte% 7.7 % (0-10); NRBC Flagged by Analyzer 0 % (0-5); Neutrophil # 6.99 X10^3/uL (2.7-7.7); Neutrophil % 72.3 % (47-70); Platelet Count 295 K/mm3 (150-450); RBC Distribution Width CV 14.1 % (11.6-14.6); RBC Distribution Width SD 45.8 fl (35.1-43.9); Red Blood Count 5.25 M/mm3 (4.6-6.2); White Blood Count 9.7 K/mm3 (4.4-11.0)
[2020-04-09] MEDS: Fludrocortisone Acetate 0.1 MG Tablet 0.2 MG PO (08:11)
[2020-04-09 10:00] VITALS: PULSE 65; RESP 16; O2SAT 98
[2020-04-09] MEDS: Tuberculin,Purif.prot.deriv. 50 TU/ML Vial 5 ML ID (11:50)
[2020-04-09 11:56] VITALS: BP 98/62; PULSE 78
[2020-04-09 12:13] LABS: Anion Gap 4 (5-15); BUN 15 mg/dL (7-18); BUN/Creat Ratio 10.9 RATIO (10-20); Calcium,Total 8.6 mg/dL (8.5-10.1); Chloride 107 mmol/L (98-107); Creatinine, Serum 1.37 mg/dL (0.70-1.30); EST Glomerular Filtration Rate 53 mL/min (>60); Est Glom Filt Rate - Afr Amer 64 mL/min (>60); Estimated Creatinine Clearance 45.62 ml/min; Glucose 84 mg/dL (74-106); Sodium Level 139 mmol/L (136-145)
[2020-04-09 12:50] LABS: Probe Check PASS; Specimen Processing Control PASS
[2020-04-09 14:07] VITALS: BP 166/96; PULSE 64; RESP 16; TEMP 36.8; O2SAT 98
[2020-04-09] MEDS: Atorvastatin Calcium 40 MG Tablet PO (21:11)
[2020-04-09] MEDS: Latanoprost 0.005% 1 Bottle 1 DRP EACH EYE (21:11)
--- NOTE | 2020-04-09 22:04 | NURSING ---
Pt sitting on side of bed attempting to use urinal stating he was having difficulty. Assisted by this RN but pt unable to void. Pt stating he is feeling lightheaded. Assisted back to laying in bed and HOB elevated. Urinal placed between legs and foreskin retracted. Pt unable to void after several minutes. Pelvis soft/nontender to palpation. Bladder scan done showing 0mL. Pt then able to void 100mL clear dark yellow urine. Was also incontinent a small amount in attends. Richa-care done and foreskin returned to normal position. Attends changed. Bed alarm placed on pt due to lightheadedness and pt does not remember to call for assistance to sit on edge of bed. Pt is alert to self and place. Confused to situation/time. Pt reminded how to use call light and urinal placed within reach.
[2020-04-10] VITALS (8 sets, daily range): BP systolic 108–146; BP diastolic 66–98; PULSE 59–82; RESP 16–18; TEMP 36.3–36.6; O2SAT 97
[2020-04-10] MEDS: Acetaminophen 500 MG Tablet 1000 MG PO (03:39)
[2020-04-10] MEDS: Digoxin 125 MCG Tablet PO (05:56)
[2020-04-10] MEDS: Polyethylene Glycol 3350 17 GM PACKET PO (05:56)
[2020-04-10] MEDS: Midodrine HCl 5 MG Tablet 10 MG PO ×3 (05:56→17:17)
[2020-04-10] MEDS: Senna/Docusate Sodium 1 Tablet PO (05:56)
[2020-04-10] MEDS: levETIRAcetam 250 MG Tablet PO ×2 (05:57→17:17)
[2020-04-10] MEDS: Amiodarone 200 MG Tablet PO ×2 (05:57→17:17)
[2020-04-10] MEDS: Levothyroxine 75 MCG Tablet PO (05:57)
[2020-04-10] MEDS: APIXABAN 2.5 MG TABLET PO ×2 (05:57→17:17)
[2020-04-10] MEDS: Fludrocortisone Acetate 0.1 MG Tablet 0.2 MG PO (07:50)
[2020-04-10] MEDS: Latanoprost 0.005% 1 Bottle 1 DRP EACH EYE (19:46)
[2020-04-10] MEDS: Atorvastatin Calcium 40 MG Tablet PO (19:47)
[2020-04-11 06:12] VITALS: BP 125/90; PULSE 77; RESP 18; TEMP 36.6; O2SAT 95
[2020-04-11] MEDS: Menthol/Lanolin/Calamine/Znox 113 GM Tube 1 APPLIC TOPICAL ×2 (06:14→17:27)
[2020-04-11 06:15] VITALS: PULSE 77
[2020-04-11] MEDS: Polyethylene Glycol 3350 17 GM PACKET PO (06:15)
[2020-04-11] MEDS: Senna/Docusate Sodium 1 Tablet PO (06:15)
[2020-04-11] MEDS: Digoxin 125 MCG Tablet PO (06:15)
[2020-04-11] MEDS: Amiodarone 200 MG Tablet PO ×2 (06:15→17:27)
[2020-04-11] MEDS: Midodrine HCl 5 MG Tablet 10 MG PO ×3 (06:15→17:27)
[2020-04-11] MEDS: Levothyroxine 75 MCG Tablet PO (06:15)
[2020-04-11] MEDS: APIXABAN 2.5 MG TABLET PO ×2 (06:15→17:26)
[2020-04-11] MEDS: levETIRAcetam 250 MG Tablet PO ×2 (06:16→17:27)
[2020-04-11] MEDS: Fludrocortisone Acetate 0.1 MG Tablet 0.2 MG PO (08:11)
[2020-04-11 10:47] VITALS: BP 117/75; BP 86/67
--- NOTE | 2020-04-11 10:48 | NURSING ---
sitting and standing BP performed by therapy and reported to this RN
[2020-04-11 14:03] VITALS: BP 149/101; PULSE 72; RESP 16; TEMP 36.2; O2SAT 98
--- NOTE | 2020-04-11 15:07 | PHA.CONS_ITS ---
<MarciaAngela - Last Filed: 04/11/20 15:07> Progress Note - Pharmacy Subjective: TCU Admission Objective: Allergies hydrochlorothiazide Adverse Reaction (Intermediate, Verified 04/04/20 05:17) syncope Current Medications Generic Name Dose Route Start Last Admin Trade Name Freq PRN Reason Stop Dose Admin Acetaminophen 1,000 mg 04/08/20 20:39 04/10/20 03:39 Tylenol PO 1,000 mg Q6H PRN Administration Pain Score 1-10/10 Amiodarone HCl 200 mg 04/08/20 18:00 04/11/20 06:15 Cordarone PO 200 mg BID [facility] Administration Apixaban 2.5 mg 04/08/20 18:00 04/11/20 06:15 Eliquis PO 2.5 mg BID [facility] Administration Atorvastatin Calcium 40 mg 04/08/20 22:00 04/10/20 19:47 Lipitor PO 40 mg DAILY@2200 [facility] Administration Bisacodyl 10 mg 04/08/20 20:39 Dulcolax RECTAL DAILY PRN Constipation Calamine/Phenol 1 applic 04/11/20 06:00 04/11/20 06:14 Calmoseptine Ointment TOPICAL 1 applicatio 0600,1800 [facility] Administration Protocol Digoxin 125 mcg 04/09/20 06:00 04/11/20 06:15 Lanoxin PO 125 mcg DAILY [facility] Administration Fludrocortisone Acetate 0.2 mg 04/09/20 08:00 04/11/20 08:11 Florinef PO 0.2 mg DAILY@0800 [facility] Administration Latanoprost 1 drop 04/08/20 22:00 04/10/20 19:46 Xalatan Opthalmic EACH EYE 1 drop QHS [facility] Administration Levetiracetam 250 mg 04/09/20 06:00 04/11/20 06:16 Keppra Tablet PO 250 mg BID [facility] Administration Levothyroxine Sodium 75 mcg 04/09/20 06:00 04/11/20 06:15 Synthroid PO 75 mcg DAILY@0600 [facility] Administration Midodrine 10 mg 04/08/20 18:00 04/11/20 11:57 Proamatine PO 10 mg 0600,1200,1800 [facility] Administration Multi-Ingredient Cream 1 applic 04/10/20 22:00 04/11/20 06:14 Eucerin TOPICAL 1 applicatio 0600,2200 [facility] Administration Protocol Polyethylene Glycol 17 gm 04/09/20 06:00 04/11/20 06:15 Miralax PO 17 gm DAILY [facility] Administration Potassium Chloride 40 meq 04/09/20 08:00 04/11/20 08:11 K-Dur PO 40 meq DAILYCM [facility] Administration Senna/Docusate Sodium 1 tablet 04/09/20 06:00 04/11/20 10:19 Senokot-S, Richa-Colace PO Not Given BID [facility] Tuberculin PPD 5 tu 04/16/20 10:00 Tubersol, Aplisol, Ppd ID 04/16/20 10:01 X1 ONE Problem List (Last Reviewed 04/04/20 @ 11:[address] Russel Byrne, DO) Debility (Acute) Syncope (Acute) Parkinson's plus syndrome (Acute) Coronary artery disease (Chronic) Hypertension (Chronic) Glaucoma (Chronic) Hypothyroidism (Chronic) Hypokalemia (Chronic) Seizure disorder (Chronic) BPH (benign prostatic hyperplasia) (Chronic) Vital Signs Temp Pulse Resp BP Pulse Ox 97.1 F L 72 16 149/101 H 98 04/11/20 14:03 04/11/20 14:03 04/11/20 14:03 04/11/20 14:03 04/11/20 14:03 Oxygen Delivery Method Room Air Weight: 78.953 kg Body Mass Index (BMI) 22.3 Finger Stick Blood Glucose 115 Orthostatic Vital Signs Start: 04/11/20 10:47 Freq: q24h Status: Active Protocol: Activity Type Activity Date Activity User E-Sign Co-Sign Detail Recorded Client Recorded Date Recorded By Document 04/11/20 10:47 GEORGE [id number] 04/11/20 10:48 GEORGE 04/11/20 10:47 Orthostatic Vitals Standing -Blood Pressure (90/60-120/80) 86/67 L Sitting -Blood Pressure (90/60-120/80) 117/75 04/11/20 10:48 Nursing Note by Akiko Chatman sitting and standing BP performed by therapy and reported to this RN Initialized on 04/11/20 10:48 - END OF NOTE Sodium 139 mmol/L (136-145) 04/09/20 07:07 Potassium 4.0 mmol/L (3.5-5.1) 04/09/20 07:07 Chloride 107 mmol/L (98-107) 04/09/20 07:07 Carbon Dioxide 28.0 mmol/L (21.0-32.0) 04/09/20 07:07 Anion Gap 4 (5-15) L 04/09/20 07:07 BUN 15 mg/dL (7-18) 04/09/20 07:07 Creatinine 1.37 mg/dL (0.70-1.30) H 04/09/20 07:07 Est GFR (MDRD) Af Amer 64 mL/min (>60) 04/09/20 07:07 Est GFR (MDRD) Non-Af 53 mL/min (>60) L 04/09/20 07:07 BUN/Creatinine Ratio 10.9 RATIO (-20) 04/09/20 07:07 Glucose 84 mg/dL (74-106) 04/09/20 07:07 Assessment/Plan: 1. Pain: Tylenol 1000mg by mouth Q6H PRN pain score (1-10) or fever. Continue to assess pain for patient and check temperature as clinically appropriate. 2. Atrial Fibrillation: amiodarone 200mg PO BID, digoxin 125mcg PO daily and Eliquis 2.5mg PO BID. Please monitor patient for S/S of bleeding/DVT, BP (last 149/101), electrolytes and digoxin level (last from 03/17/20). 3. Hyperlipidemia: atorvastatin 40mg PO QHS. Continue to monitor lipid panel as clinically appropriate. Last lipid panel from last month. 4. Orthostatic Hypotension: Midodrine 10mg by mouth at 0600, 1200, and 1800. Continue to monitor blood pressure as clinically appropriate (last BP 149/101). 5. Glaucoma: Xalatan 0.005% Instill one drop into each eye QHS. Please continue to monitor for S/S of glaucoma. 6. Seizure Disorder: Levetiracetam 250mg by mouth twice daily. Please continue to monitor for S/S of seizure and rash. 7. Hypothyroidism: Levothyroxine 75mcg by mouth daily. Continue to monitor TSH and T4 levels as clinically appropriate (last TSH from 04/05/20). 8. Hypokalemia: K-Dur 40MEQ by mouth daily. Continue to monitor potassium levels as clinically appropriate (last level 4.0). Psychotropic Medications: None Unnecessary Medications: None Bowel Regimen: Miralax 17gm PO daily, senna/docusate 1T PO BID, and bisacodyl 10mg daily PRN constipation. Please continue to monitor for S/S of constipation, diarrhea and PRN usage. Date of Note:: 04/11/20 - Provider Comments Provider responsibility: Provider responsible to enter orders to implement recommendations <Dariusz Gonzalez Chi - Last Filed: 04/11/20 17:45> Progress Note - Pharmacy Subjective: [] Objective: Allergies hydrochlorothiazide Adverse Reaction (Intermediate, Verified 04/04/20 05:17) syncope Current Medications Generic Name Dose Route Start Last Admin Trade Name Freq PRN Reason Stop Dose Admin Acetaminophen 1,000 mg 04/08/20 20:39 04/11/20 17:29 Tylenol PO 1,000 mg Q6H PRN Administration Pain Score 1-10/10 Amiodarone HCl 200 mg 04/08/20 18:00 04/11/20 17:27 Cordarone PO 200 mg BID [facility] Administration Apixaban 2.5 mg 04/08/20 18:00 04/11/20 17:26 Eliquis PO 2.5 mg BID [facility] Administration Atorvastatin Calcium 40 mg 04/08/20 22:00 04/10/20 19:47 Lipitor PO 40 mg DAILY@2200 [facility] Administration Bisacodyl 10 mg 04/08/20 20:39 Dulcolax RECTAL DAILY PRN Constipation Calamine/Phenol 1 applic 04/11/20 06:00 04/11/20 17:27 Calmoseptine Ointment TOPICAL 1 applicatio 0600,1800 [facility] Administration Protocol Digoxin 125 mcg 04/09/20 06:00 04/11/20 06:15 Lanoxin PO 125 mcg DAILY [facility] Administration Fludrocortisone Acetate 0.2 mg 04/09/20 08:00 04/11/20 08:11 Florinef PO 0.2 mg DAILY@0800 [facility] Administration Latanoprost 1 drop 04/08/20 22:00 04/10/20 19:46 Xalatan Opthalmic EACH EYE 1 drop QHS [facility] Administration Levetiracetam 250 mg 04/09/20 06:00 04/11/20 17:27 Keppra Tablet PO 250 mg BID [facility] Administration Levothyroxine Sodium 75 mcg 04/09/20 06:00 04/11/20 06:15 Synthroid PO 75 mcg DAILY@0600 [facility] Administration Midodrine 10 mg 04/08/20 18:00 04/11/20 17:27 Proamatine PO 10 mg 0600,1200,1800 [facility] Administration Multi-Ingredient Cream 1 applic 04/10/20 22:00 04/11/20 06:14 Eucerin TOPICAL 1 applicatio 0600,2200 [facility] Administration Protocol Polyethylene Glycol 17 gm 04/09/20 06:00 04/11/20 06:15 Miralax PO 17 gm DAILY [facility] Administration Potassium Chloride 40 meq 04/09/20 08:00 04/11/20 08:11 K-Dur PO 40 meq DAILYCM [facility] Administration Senna/Docusate Sodium 1 tablet 04/09/20 06:00 04/11/20 10:19 Senokot-S, Richa-Colace PO Not Given BID [facility] Tuberculin PPD 5 tu 04/16/20 10:00 Tubersol, Aplisol, Ppd ID 04/16/20 10:01 X1 ONE Problem List (Last Reviewed 04/04/20 @ 11:[address] Russel Byrne, DO) Debility (Acute) Syncope (Acute) Parkinson's plus syndrome (Acute) Coronary artery disease (Chronic) Hypertension (Chronic) Glaucoma (Chronic) Hypothyroidism (Chronic) Hypokalemia (Chronic) Seizure disorder (Chronic) BPH (benign prostatic hyperplasia) (Chronic) Vital Signs Temp Pulse Resp BP Pulse Ox 97.1 F L 76 16 133/91 H 98 04/11/20 14:03 04/11/20 17:33 04/11/20 14:03 04/11/20 17:33 04/11/20 14:03 Oxygen Delivery Method Room Air Weight: 78.953 kg Body Mass Index (BMI) 22.3 Finger Stick Blood Glucose 115 Orthostatic Vital Signs Start: 04/11/20 10:47 Freq: q24h Status: Active Protocol: Activity Type Activity Date Activity User E-Sign Co-Sign Detail Recorded Client Recorded Date Recorded By Document 04/11/20 17:33 GEORGE [id number] 04/11/20 17:37 GEORGE 04/11/20 17:33 Orthostatic Vitals Lying -Blood Pressure (90/60-120/80) 165/112 H -Extremity Use Left Arm -Pulse Rate (60-100) 80 Standing -Blood Pressure (90/60-120/80) 111/63 -Extremity Use Left Arm -Pulse Rate (60-100) 96 Sitting -Blood Pressure (90/60-120/80) 133/91 H -Extremity Use Left Arm -Pulse Rate (60-100) 76 Sodium 139 mmol/L (136-145) 04/09/20 07:07 Potassium 4.0 mmol/L (3.5-5.1) 04/09/20 07:07 Chloride 107 mmol/L (98-107) 04/09/20 07:07 Carbon Dioxide 28.0 mmol/L (21.0-32.0) 04/09/20 07:07 Anion Gap 4 (5-15) L 04/09/20 07:07 BUN 15 mg/dL (7-18) 04/09/20 07:07 Creatinine 1.37 mg/dL (0.70-1.30) H 04/09/20 07:07 Est GFR (MDRD) Af Amer 64 mL/min (>60) 04/09/20 07:07 Est GFR (MDRD) Non-Af 53 mL/min (>60) L 04/09/20 07:07 BUN/Creatinine Ratio 10.9 RATIO (10-20) 04/09/20 07:07 Glucose 84 mg/dL (74-106) 04/09/20 07:07 Assessment/Plan: Psychotropic Medications: Unnecessary Medications: Bowel Regimen: - Provider Comments Provider responsibility: Provider responsible to enter orders to implement recommendations Provider Comments to Recommendations by Pharmacy: Agree
--- NOTE | 2020-04-11 15:52 | CASEMGMT ---
Social Work Discussed code status with pt. Pt confirmed DNR-CCA, without intubation. Nursing updated. MOLST form completed and placed in chart. Cheri Trivedi, [employer] SUPERINTENDENT AGRONOMY SUPERVISOR
[2020-04-11] MEDS: Acetaminophen 500 MG Tablet 1000 MG PO (17:29)
[2020-04-11 17:33] VITALS: BP 111/63; BP 133/91; BP 165/112; PULSE 76; PULSE 80; PULSE 96
[2020-04-11] MEDS: Latanoprost 0.005% 1 Bottle 1 DRP EACH EYE (20:39)
[2020-04-11] MEDS: Atorvastatin Calcium 40 MG Tablet PO (20:42)
[2020-04-12 04:54] VITALS: BP 141/88; PULSE 72; RESP 16; TEMP 36.4; O2SAT 98
[2020-04-12] MEDS: Levothyroxine 75 MCG Tablet PO (04:57)
[2020-04-12] MEDS: Midodrine HCl 5 MG Tablet 10 MG PO ×3 (04:58→18:37)
[2020-04-12] MEDS: levETIRAcetam 250 MG Tablet PO ×2 (04:58→18:37)
[2020-04-12 04:59] VITALS: BP 141/88; PULSE 72
[2020-04-12] MEDS: APIXABAN 2.5 MG TABLET PO ×2 (04:59→18:37)
[2020-04-12] MEDS: Amiodarone 200 MG Tablet PO ×2 (04:59→18:37)
[2020-04-12] MEDS: Digoxin 125 MCG Tablet PO (04:59)
[2020-04-12] MEDS: Menthol/Lanolin/Calamine/Znox 113 GM Tube 1 APPLIC TOPICAL ×2 (05:01→18:37)
[2020-04-12] MEDS: Fludrocortisone Acetate 0.1 MG Tablet 0.2 MG PO (07:54)
[2020-04-12 15:53] VITALS: BP 133/76; PULSE 71; RESP 16; TEMP 36.2; O2SAT 98
--- NOTE | 2020-04-12 18:08 | NURSING ---
RESIDENT WAS GIVEN [employer] MEAL THAT DAUGHTER BROUGHT IN FOR PT PER HIS REQUEST.
[2020-04-12 18:38] VITALS: BP 151/98; PULSE 84
[2020-04-12] MEDS: Latanoprost 0.005% 1 Bottle 1 DRP EACH EYE (22:53)
[2020-04-12] MEDS: Atorvastatin Calcium 40 MG Tablet PO (22:53)
[2020-04-13 06:14] VITALS: BP 124/77; PULSE 74; RESP 16; TEMP 36.9; O2SAT 99
[2020-04-13 06:21] VITALS: BP 124/77; BP 71/41; BP 86/56; PULSE 74; PULSE 80; PULSE 81
[2020-04-13 06:37] VITALS: BP 124/77; PULSE 74
[2020-04-13] MEDS: Amiodarone 200 MG Tablet PO ×2 (06:37→17:12)
[2020-04-13] MEDS: Digoxin 125 MCG Tablet PO (06:37)
[2020-04-13] MEDS: APIXABAN 2.5 MG TABLET PO ×2 (06:37→17:12)
[2020-04-13] MEDS: levETIRAcetam 250 MG Tablet PO ×2 (06:37→17:12)
[2020-04-13] MEDS: Levothyroxine 75 MCG Tablet PO (06:37)
[2020-04-13] MEDS: Midodrine HCl 5 MG Tablet 10 MG PO ×3 (06:37→17:12)
[2020-04-13] MEDS: Menthol/Lanolin/Calamine/Znox 113 GM Tube 1 APPLIC TOPICAL ×2 (06:38→17:12)
[2020-04-13] MEDS: Fludrocortisone Acetate 0.1 MG Tablet 0.2 MG PO (08:04)
[2020-04-13 10:00] VITALS: PULSE 95; RESP 14; O2SAT 99
[2020-04-13 12:02] VITALS: BP 114/71; PULSE 77
--- NOTE | 2020-04-13 12:08 | CASEMGMT ---
Social Work IDT met with patient, daughter and grandson via conference call for care plan meeting. Discussed patient's progress in therapy. Pt is SBA for bed mobility, Aleksandr for transfers with FWW, ambulating 20 ft with FWW at Aleksandr and w/c follow. Pt is set up for grooming and UE dressing while seated, min for LE bathing, mod for LE dressing, min for toilet transfers, mod for clothing management, max for pericare, and incontinent of bowel. Pt is unable to stand more than 30-60 seconds due to dizziness. ST will work with patient on forgetfulness, confusion and reorientation. Pt is out isolation 04/22 and on meds for ortho hypotension. Explained Medicare benefit. Pt lives at home with his daughter and grandson, has a ramp to enter. Dtr assists with finances and meds and doesn't work currently. Discussed alternative DC plan or getting additional assistance in the home. Family would like pt to return at OF and for dtr to assist. Will continue to follow. Cheri Trivedi, SUPERVISOR [employer] FORMER MATERIAL CONTROLLER
[2020-04-13 13:40] VITALS: BP 98/60; PULSE 75; RESP 18; TEMP 36.6; O2SAT 97
[2020-04-13] MEDS: Acetaminophen 500 MG Tablet 1000 MG PO (13:40)
--- NOTE | 2020-04-13 14:52 | NURSING ---
Addendum entered by Lorna Urbano 04/14/20 01:27: Dr. Gonzalez aware. After pt is D/C he will discuss it with them in his office. Original Note: Spoke with patient's grandson who is wanting Dr. Gonzalez to try Norethra. Dr. Gonzalez had previously discussed this medication with the family. The grandson also requested that the family be made aware of any medications changes.
[2020-04-13] MEDS: Atorvastatin Calcium 40 MG Tablet PO (20:43)
[2020-04-13] MEDS: Latanoprost 0.005% 1 Bottle 1 DRP EACH EYE (20:43)
[2020-04-14 06:00] VITALS: BP 142/79; BP 151/81; BP 161/96; PULSE 65; PULSE 69; PULSE 72
[2020-04-14 06:11] VITALS: BP 161/96; PULSE 65; RESP 18; TEMP 36.4; O2SAT 96
[2020-04-14 06:24] VITALS: BP 161/96; PULSE 65
[2020-04-14] MEDS: Levothyroxine 75 MCG Tablet PO (06:24)
[2020-04-14] MEDS: Midodrine HCl 5 MG Tablet 10 MG PO ×3 (06:24→17:50)
[2020-04-14] MEDS: APIXABAN 2.5 MG TABLET PO ×2 (06:24→17:50)
[2020-04-14] MEDS: Digoxin 125 MCG Tablet PO (06:24)
[2020-04-14] MEDS: levETIRAcetam 250 MG Tablet PO ×2 (06:25→17:50)
[2020-04-14] MEDS: Amiodarone 200 MG Tablet PO ×2 (06:25→17:50)
[2020-04-14] MEDS: Menthol/Lanolin/Calamine/Znox 113 GM Tube 1 APPLIC TOPICAL ×2 (06:29→16:10)
[2020-04-14] MEDS: Fludrocortisone Acetate 0.1 MG Tablet 0.2 MG PO (08:37)
--- NOTE | 2020-04-14 11:45 | MDS.RN ---
Pain interview for elliott 04/15/20 completed.
[2020-04-14 12:36] VITALS: BP 100/58; PULSE 70
[2020-04-14 15:03] VITALS: BP 133/73; PULSE 88; RESP 14; TEMP 36.6; O2SAT 94
[2020-04-14] MEDS: Atorvastatin Calcium 40 MG Tablet PO (19:53)
[2020-04-14] MEDS: Latanoprost 0.005% 1 Bottle 1 DRP EACH EYE (19:53)
[2020-04-15 06:19] VITALS: BP 135/90; PULSE 70; RESP 16; TEMP 36.7; O2SAT 98
[2020-04-15 06:20] VITALS: BP 118/83; BP 135/90; BP 97/71; PULSE 70; PULSE 76; PULSE 77
[2020-04-15 06:27] VITALS: PULSE 77
[2020-04-15] MEDS: Digoxin 125 MCG Tablet PO (06:27)
[2020-04-15] MEDS: Levothyroxine 75 MCG Tablet PO (06:27)
[2020-04-15] MEDS: Amiodarone 200 MG Tablet PO ×2 (06:27→18:11)
[2020-04-15] MEDS: levETIRAcetam 250 MG Tablet PO ×2 (06:27→18:11)
[2020-04-15] MEDS: Midodrine HCl 5 MG Tablet 10 MG PO ×3 (06:27→18:11)
[2020-04-15] MEDS: APIXABAN 2.5 MG TABLET PO ×2 (06:27→18:11)
[2020-04-15] MEDS: Menthol/Lanolin/Calamine/Znox 113 GM Tube 1 APPLIC TOPICAL ×2 (06:29→18:12)
[2020-04-15] MEDS: Fludrocortisone Acetate 0.1 MG Tablet 0.2 MG PO (08:45)
[2020-04-15 12:14] VITALS: BP 108/81; PULSE 78
[2020-04-15 14:11] VITALS: BP 132/80; PULSE 70; RESP 15; TEMP 36.3; O2SAT 96
[2020-04-15 20:24] VITALS: BP 132/92
[2020-04-15] MEDS: Latanoprost 0.005% 1 Bottle 1 DRP EACH EYE (20:55)
[2020-04-15] MEDS: Atorvastatin Calcium 40 MG Tablet PO (20:56)
[2020-04-16 04:00] VITALS: BP 127/95; PULSE 69; RESP 18; TEMP 36.7; O2SAT 96
[2020-04-16 06:00] VITALS: BP 127/95; BP 131/91; BP 91/53; PULSE 69; PULSE 82; PULSE 85
[2020-04-16] MEDS: Polyethylene Glycol 3350 17 GM PACKET PO (06:45)
[2020-04-16 06:46] VITALS: PULSE 85
[2020-04-16] MEDS: levETIRAcetam 250 MG Tablet PO ×2 (06:46→17:54)
[2020-04-16] MEDS: Levothyroxine 75 MCG Tablet PO (06:46)
[2020-04-16] MEDS: Digoxin 125 MCG Tablet PO (06:46)
[2020-04-16] MEDS: Midodrine HCl 5 MG Tablet 10 MG PO ×3 (06:46→17:54)
[2020-04-16] MEDS: Amiodarone 200 MG Tablet PO ×2 (06:46→17:54)
[2020-04-16] MEDS: APIXABAN 2.5 MG TABLET PO ×2 (06:46→17:54)
[2020-04-16] MEDS: Menthol/Lanolin/Calamine/Znox 113 GM Tube 1 APPLIC TOPICAL ×2 (06:47→17:55)
[2020-04-16 08:24] LABS: Absolute Lymphocyte Count 1.83 X10^3/uL (0.83-4.51); Absolute Neutrophil Count 5.9 X10^3/uL (2.0-7.7); Basophil# 0.09 X10^3/uL; Eosinophil# 0.31 X10^3/uL; Eosinophils% 3.5 % (0-5); Hematocrit 46.9 % (40-54); Hemoglobin 15.6 g/dL (13.0-16.5); Lymphocyte # 1.83 X10^3/ul (4.0); Lymphocyte % 20.9 % (19-41); Mean Corp Hgb Conc 33.3 g/dL (32-36); Mean Corpuscular Hgb 30.1 pg (27.0-32.0); Mean Corpuscular Volume 90.5 fL (80-94); Mean Platelet Vol. 10.1 fl (6.2-12.0); Monocyte# 0.55 X10^3/uL; Monocyte% 6.3 % (0-10); NRBC Flagged by Analyzer 0 % (0-5); Neutrophil # 5.91 X10^3/uL (2.7-7.7); Neutrophil % 67.5 % (47-70); Platelet Count 286 K/mm3 (150-450); RBC Distribution Width CV 14.3 % (11.6-14.6); RBC Distribution Width SD 47.9 fl (35.1-43.9); Red Blood Count 5.18 M/mm3 (4.6-6.2); White Blood Count 8.8 K/mm3 (4.4-11.0)
[2020-04-16] MEDS: Fludrocortisone Acetate 0.1 MG Tablet 0.2 MG PO (08:39)
[2020-04-16 08:41] LABS: Anion Gap 5 (5-15); BUN 19 mg/dL (7-18); BUN/Creat Ratio 13.5 RATIO (10-20); Calcium,Total 8.4 mg/dL (8.5-10.1); Chloride 104 mmol/L (98-107); Creatinine, Serum 1.41 mg/dL (0.70-1.30); EST Glomerular Filtration Rate 51 mL/min (>60); Est Glom Filt Rate - Afr Amer 62 mL/min (>60); Estimated Creatinine Clearance 42.96 ml/min; Glucose 90 mg/dL (74-106); Potassium 4.5 mmol/L (3.5-5.1); Sodium Level 140 mmol/L (136-145)
[2020-04-16] MEDS: Tuberculin,Purif.prot.deriv. 50 TU/ML Vial 5 ML ID (10:10)
[2020-04-16 10:20] VITALS: PULSE 72; RESP 18; O2SAT 97
[2020-04-16 14:40] VITALS: BP 156/93; PULSE 64; RESP 16; TEMP 36.6; O2SAT 100
[2020-04-16] MEDS: Latanoprost 0.005% 1 Bottle 1 DRP EACH EYE (21:24)
[2020-04-16] MEDS: Atorvastatin Calcium 40 MG Tablet PO (21:24)
[2020-04-17 06:00] VITALS: BP 100/60; BP 129/85; BP 86/63; PULSE 85; PULSE 88
[2020-04-17 06:34] VITALS: BP 129/85; PULSE 71; RESP 17; TEMP 36.6; O2SAT 96
[2020-04-17 06:36] VITALS: PULSE 71
[2020-04-17] MEDS: Amiodarone 200 MG Tablet PO ×2 (06:36→18:08)
[2020-04-17] MEDS: Levothyroxine 75 MCG Tablet PO (06:36)
[2020-04-17] MEDS: Polyethylene Glycol 3350 17 GM PACKET PO (06:36)
[2020-04-17] MEDS: APIXABAN 2.5 MG TABLET PO ×2 (06:36→18:08)
[2020-04-17] MEDS: Digoxin 125 MCG Tablet PO (06:36)
[2020-04-17] MEDS: Midodrine HCl 5 MG Tablet 10 MG PO ×3 (06:36→18:08)
[2020-04-17] MEDS: Menthol/Lanolin/Calamine/Znox 113 GM Tube 1 APPLIC TOPICAL ×2 (06:37→18:10)
[2020-04-17] MEDS: levETIRAcetam 250 MG Tablet PO ×2 (06:37→18:08)
[2020-04-17] MEDS: Fludrocortisone Acetate 0.1 MG Tablet 0.2 MG PO (08:16)
[2020-04-17 14:08] VITALS: BP 131/87; PULSE 72; RESP 16; TEMP 36.5; O2SAT 99
[2020-04-17 19:26] VITALS: BP 127/59; PULSE 65; RESP 16; TEMP 37.1; O2SAT 98
[2020-04-17] MEDS: Latanoprost 0.005% 1 Bottle 1 DRP EACH EYE (19:39)
[2020-04-17] MEDS: Atorvastatin Calcium 40 MG Tablet PO (19:40)
[2020-04-18 04:53] VITALS: BP 120/60; BP 128/90; BP 96/53; PULSE 66; PULSE 79; PULSE 93
[2020-04-18 05:01] VITALS: RESP 16; TEMP 36.2; O2SAT 98
[2020-04-18] MEDS: Menthol/Lanolin/Calamine/Znox 113 GM Tube 1 APPLIC TOPICAL (05:02)
[2020-04-18 05:03] VITALS: PULSE 64
[2020-04-18] MEDS: APIXABAN 2.5 MG TABLET PO (05:03)
[2020-04-18] MEDS: Midodrine HCl 5 MG Tablet 10 MG PO ×2 (05:03→11:17)
[2020-04-18] MEDS: Digoxin 125 MCG Tablet PO (05:03)
[2020-04-18] MEDS: levETIRAcetam 250 MG Tablet PO (05:03)
[2020-04-18] MEDS: Amiodarone 200 MG Tablet PO (05:03)
[2020-04-18] MEDS: Levothyroxine 75 MCG Tablet PO (05:04)
[2020-04-18] MEDS: Fludrocortisone Acetate 0.1 MG Tablet 0.2 MG PO (08:02)
[2020-04-18 10:00] VITALS: PULSE 69; RESP 16; O2SAT 92
[2020-04-18 11:19] VITALS: BP 112/85; PULSE 84
[2020-04-18 11:22] VITALS: BP 107/78
--- NOTE | 2020-04-18 11:38 | NURSING ---
Notified Dr. Gonzalez of patient's current status and c/o feeling like he's going to pass out and unable to stand. Dr. Gonzalez ordered pt to be sent to the ER.
--- NOTE | 2020-04-18 11:42 | NURSING ---
Report called to ER
--- NOTE | 2020-04-18 12:09 | NURSING ---
Family updated that pt was sent to the ER
--- NOTE | 2020-04-19 16:20 | NURSING ---
Back on floor from U.
[2020-04-19 18:09] VITALS: BP 144/99; PULSE 72
[2020-04-19] MEDS: Amiodarone 200 MG Tablet PO (18:11)
[2020-04-19] MEDS: levETIRAcetam 250 MG Tablet PO (18:12)
[2020-04-19] MEDS: APIXABAN 2.5 MG TABLET PO (18:12)
[2020-04-19] MEDS: Menthol/Lanolin/Calamine/Znox 113 GM Tube 1 APPLIC TOPICAL (18:15)
[2020-04-19 20:10] VITALS: BP 156/95; PULSE 72
--- NOTE | 2020-04-19 20:10 | NURSING ---
Patient's BP 156/92, P [address] Carlos rodas to give Midodrine.
[2020-04-19] MEDS: Atorvastatin Calcium 40 MG Tablet PO (20:30)
[2020-04-19] MEDS: Midodrine HCl 5 MG Tablet 10 MG PO (20:30)
[2020-04-19] MEDS: Latanoprost 0.005% 1 Bottle 1 DRP EACH EYE (20:36)
[2020-04-20 04:37] VITALS: BP 146/99; PULSE 65; RESP 16; TEMP 37.1; O2SAT 97
[2020-04-20] MEDS: Menthol/Lanolin/Calamine/Znox 113 GM Tube 1 APPLIC TOPICAL ×2 (04:39→17:02)
[2020-04-20] MEDS: Midodrine HCl 5 MG Tablet 10 MG PO ×3 (04:39→17:02)
[2020-04-20] MEDS: APIXABAN 2.5 MG TABLET PO ×2 (04:39→17:02)
[2020-04-20 04:40] VITALS: PULSE 65
[2020-04-20] MEDS: Amiodarone 200 MG Tablet PO ×2 (04:40→17:02)
[2020-04-20] MEDS: Levothyroxine 75 MCG Tablet PO (04:40)
[2020-04-20] MEDS: Digoxin 125 MCG Tablet PO (04:40)
[2020-04-20] MEDS: levETIRAcetam 250 MG Tablet PO ×2 (04:43→17:02)
--- NOTE | 2020-04-20 07:28 | MDS.RN ---
Information for the mds was obtained from review of the clinical record, interview of resident, staff, and direct observation of resident's care.
[2020-04-20] MEDS: Fludrocortisone Acetate 0.1 MG Tablet 0.2 MG PO (07:52)
[2020-04-20 10:25] VITALS: BP 116/89
--- NOTE | 2020-04-20 10:30 | NURSING ---
Notified Dr. Gonzalez, pt slumped over, while sitting on BSC. Therapy was present. Staff transferred pt to bed. VS obtained.
[2020-04-20 10:36] VITALS: BP 136/70
[2020-04-20] MEDS: 0.9% Normal Saline 1,000 ML 500 ML IV (10:50)
[2020-04-20 12:40] VITALS: PULSE 64; RESP 16; O2SAT 94
[2020-04-20 15:43] VITALS: BP 136/70; PULSE 64; RESP 16; TEMP 36.4; O2SAT 94
[2020-04-20] MEDS: Atorvastatin Calcium 40 MG Tablet PO (19:53)
[2020-04-20] MEDS: Latanoprost 0.005% 1 Bottle 1 DRP EACH EYE (19:53)
[2020-04-20] MEDS: 0.9% Saline Lock 10 ML Syringe IV (19:54)
[2020-04-20] MEDS: Acetaminophen 500 MG Tablet 1000 MG PO (20:56)
[2020-04-21 05:36] VITALS: BP 135/91; PULSE 71
[2020-04-21] MEDS: Menthol/Lanolin/Calamine/Znox 113 GM Tube 1 APPLIC TOPICAL ×2 (05:36→17:50)
[2020-04-21] MEDS: APIXABAN 2.5 MG TABLET PO ×2 (05:36→17:50)
[2020-04-21] MEDS: Midodrine HCl 5 MG Tablet 10 MG PO ×3 (05:36→17:49)
[2020-04-21] MEDS: Amiodarone 200 MG Tablet PO ×2 (05:36→17:50)
[2020-04-21] MEDS: Digoxin 125 MCG Tablet PO (05:36)
[2020-04-21] MEDS: Levothyroxine 75 MCG Tablet PO (05:36)
[2020-04-21] MEDS: levETIRAcetam 250 MG Tablet PO ×2 (05:36→17:49)
[2020-04-21 05:40] VITALS: RESP 18; TEMP 36.5; O2SAT 97
[2020-04-21 05:42] VITALS: BP 106/60; PULSE 72
[2020-04-21] MEDS: Fludrocortisone Acetate 0.1 MG Tablet 0.2 MG PO (07:51)
[2020-04-21 13:59] VITALS: BP 126/86; PULSE 65; RESP 14; TEMP 36.7; O2SAT 98
[2020-04-21] MEDS: 0.9% Saline Lock 10 ML Syringe IV (17:52)
[2020-04-21] MEDS: Latanoprost 0.005% 1 Bottle 1 DRP EACH EYE (20:45)
[2020-04-21] MEDS: Atorvastatin Calcium 40 MG Tablet PO (20:45)
[2020-04-22 05:38] VITALS: BP 142/99; PULSE 74
[2020-04-22] MEDS: Digoxin 125 MCG Tablet PO (05:38)
[2020-04-22] MEDS: 0.9% Saline Lock 10 ML Syringe IV ×3 (05:38→21:40)
[2020-04-22] MEDS: Levothyroxine 75 MCG Tablet PO (05:38)
[2020-04-22] MEDS: Midodrine HCl 5 MG Tablet 10 MG PO ×3 (05:38→17:55)
[2020-04-22] MEDS: Amiodarone 200 MG Tablet PO ×2 (05:38→17:55)
[2020-04-22] MEDS: levETIRAcetam 250 MG Tablet PO ×2 (05:38→17:55)
[2020-04-22] MEDS: APIXABAN 2.5 MG TABLET PO ×2 (05:38→17:55)
[2020-04-22] MEDS: Menthol/Lanolin/Calamine/Znox 113 GM Tube 1 APPLIC TOPICAL ×2 (05:40→17:56)
[2020-04-22 05:41] VITALS: BP 130/82; PULSE 80; RESP 18; TEMP 36.6; O2SAT 95
[2020-04-22] MEDS: Fludrocortisone Acetate 0.1 MG Tablet 0.2 MG PO (08:01)
[2020-04-22 10:00] VITALS: PULSE 81; RESP 16; O2SAT 93
[2020-04-22 15:10] VITALS: BP 141/90; PULSE 62; RESP 18; TEMP 36.4; O2SAT 98
[2020-04-22] MEDS: Atorvastatin Calcium 40 MG Tablet PO (21:34)
[2020-04-22] MEDS: Latanoprost 0.005% 1 Bottle 1 DRP EACH EYE (21:37)
[2020-04-23 04:00] VITALS: BP 162/96; PULSE 67; RESP 18; TEMP 36.6; O2SAT 98
[2020-04-23 06:00] VITALS: BP 117/67; BP 162/96; BP 91/62; PULSE 63; PULSE 72; PULSE 75
[2020-04-23 06:31] VITALS: BP 162/96; PULSE 69
[2020-04-23] MEDS: Levothyroxine 75 MCG Tablet PO (06:31)
[2020-04-23] MEDS: Digoxin 125 MCG Tablet PO (06:31)
[2020-04-23] MEDS: Menthol/Lanolin/Calamine/Znox 113 GM Tube 1 APPLIC TOPICAL ×2 (06:31→18:19)
[2020-04-23] MEDS: Midodrine HCl 5 MG Tablet 10 MG PO ×3 (06:31→18:19)
[2020-04-23] MEDS: levETIRAcetam 250 MG Tablet PO ×2 (06:32→18:18)
[2020-04-23] MEDS: APIXABAN 2.5 MG TABLET PO ×2 (06:32→18:18)
[2020-04-23] MEDS: Amiodarone 200 MG Tablet PO ×2 (06:32→18:19)
[2020-04-23] MEDS: Fludrocortisone Acetate 0.1 MG Tablet 0.2 MG PO (08:11)
[2020-04-23 08:34] LABS: Absolute Neutrophil Count 6.2 X10^3/uL (2.0-7.7); Basophil# 0.06 X10^3/uL; Basophil% 0.7 % (0-1); Eosinophil# 0.26 X10^3/uL; Eosinophils% 3.1 % (0-5); Hematocrit 48.2 % (40-54); Hemoglobin 16.5 g/dL (13.0-16.5); Lymphocyte % 16.5 % (19-41); Mean Corp Hgb Conc 34.2 g/dL (32-36); Mean Corpuscular Hgb 30.5 pg (27.0-32.0); Mean Corpuscular Volume 89.1 fL (80-94); Mean Platelet Vol. 10.3 fl (6.2-12.0); Monocyte# 0.51 X10^3/uL; NRBC Flagged by Analyzer 0 % (0-5); Neutrophil # 6.16 X10^3/uL (2.7-7.7); Neutrophil % 72.8 % (47-70); Platelet Count 271 K/mm3 (150-450); RBC Distribution Width CV 13.7 % (11.6-14.6); RBC Distribution Width SD 44.5 fl (35.1-43.9); Red Blood Count 5.41 M/mm3 (4.6-6.2); White Blood Count 8.5 K/mm3 (4.4-11.0)
[2020-04-23 08:53] LABS: Anion Gap 5 (5-15); BUN 13 mg/dL (7-18); BUN/Creat Ratio 10.4 RATIO (10-20); Calcium,Total 8.6 mg/dL (8.5-10.1); Chloride 106 mmol/L (98-107); Creatinine, Serum 1.25 mg/dL (0.70-1.30); EST Glomerular Filtration Rate 59 mL/min (>60); Est Glom Filt Rate - Afr Amer 71 mL/min (>60); Estimated Creatinine Clearance 48.46 ml/min; Glucose 85 mg/dL (74-106); Potassium 3.8 mmol/L (3.5-5.1); Sodium Level 141 mmol/L (136-145)
[2020-04-23 13:41] VITALS: BP 149/81; PULSE 91; RESP 16; TEMP 36.7; O2SAT 98
[2020-04-23] MEDS: Atorvastatin Calcium 40 MG Tablet PO (21:40)
[2020-04-23] MEDS: Latanoprost 0.005% 1 Bottle 1 DRP EACH EYE (21:41)
[2020-04-24 06:00] VITALS: BP 150/93
[2020-04-24] MEDS: Acetaminophen 500 MG Tablet 1000 MG PO (07:00)
[2020-04-24] MEDS: 0.9% Saline Lock 10 ML Syringe IV ×2 (07:01→20:33)
[2020-04-24] MEDS: Midodrine HCl 5 MG Tablet 10 MG PO ×3 (07:02→18:53)
[2020-04-24 07:03] VITALS: BP 144/98; PULSE 68
[2020-04-24] MEDS: levETIRAcetam 250 MG Tablet PO ×2 (07:03→18:01)
[2020-04-24] MEDS: Digoxin 125 MCG Tablet PO (07:03)
[2020-04-24] MEDS: APIXABAN 2.5 MG TABLET PO ×2 (07:03→18:01)
[2020-04-24] MEDS: Levothyroxine 75 MCG Tablet PO (07:03)
[2020-04-24] MEDS: Amiodarone 200 MG Tablet PO ×2 (07:03→18:01)
[2020-04-24] MEDS: Menthol/Lanolin/Calamine/Znox 113 GM Tube 1 APPLIC TOPICAL ×2 (07:06→18:01)
[2020-04-24] MEDS: Fludrocortisone Acetate 0.1 MG Tablet 0.2 MG PO (08:47)
[2020-04-24 09:13] VITALS: BP 136/72; BP 150/93; BP 79/49; PULSE 64; PULSE 77; PULSE 82
[2020-04-24 11:45] VITALS: BP 116/82
[2020-04-24 13:39] VITALS: BP 158/94; PULSE 65; RESP 16; TEMP 36.9; O2SAT 98
[2020-04-24 18:51] VITALS: BP 133/90
[2020-04-24] MEDS: Latanoprost 0.005% 1 Bottle 1 DRP EACH EYE (20:54)
[2020-04-24] MEDS: Atorvastatin Calcium 40 MG Tablet PO (20:54)
[2020-04-25 05:39] VITALS: PULSE 67
[2020-04-25] MEDS: Menthol/Lanolin/Calamine/Znox 113 GM Tube 1 APPLIC TOPICAL ×2 (05:39→17:33)
[2020-04-25] MEDS: Digoxin 125 MCG Tablet PO (05:39)
[2020-04-25] MEDS: APIXABAN 2.5 MG TABLET PO ×2 (05:39→17:32)
[2020-04-25] MEDS: levETIRAcetam 250 MG Tablet PO ×2 (05:39→17:32)
[2020-04-25] MEDS: Amiodarone 200 MG Tablet PO ×2 (05:39→17:32)
[2020-04-25] MEDS: Levothyroxine 75 MCG Tablet PO (05:39)
[2020-04-25] MEDS: Midodrine HCl 5 MG Tablet 10 MG PO ×3 (05:39→17:32)
[2020-04-25 05:51] VITALS: RESP 18; TEMP 36.4; O2SAT 97
[2020-04-25 05:52] VITALS: BP 136/94; BP 157/92; BP 71/55; PULSE 65; PULSE 68; PULSE 86
[2020-04-25] MEDS: Fludrocortisone Acetate 0.1 MG Tablet 0.2 MG PO (07:52)
[2020-04-25] MEDS: 0.9% Saline Lock 10 ML Syringe IV (08:48)
[2020-04-25 08:55] VITALS: PULSE 68; RESP 16; O2SAT 97
[2020-04-25 14:17] VITALS: BP 137/85; PULSE 63; RESP 17; TEMP 36.3; O2SAT 97
[2020-04-25] MEDS: Atorvastatin Calcium 40 MG Tablet PO (20:12)
[2020-04-25] MEDS: Latanoprost 0.005% 1 Bottle 1 DRP EACH EYE (20:13)
[2020-04-26] MEDS: Levothyroxine 75 MCG Tablet PO (04:12)
[2020-04-26] MEDS: levETIRAcetam 250 MG Tablet PO ×2 (04:12→18:02)
[2020-04-26] MEDS: APIXABAN 2.5 MG TABLET PO ×2 (04:12→18:02)
[2020-04-26] MEDS: Amiodarone 200 MG Tablet PO ×2 (04:12→18:02)
[2020-04-26] MEDS: Acetaminophen 500 MG Tablet 1000 MG PO (04:12)
[2020-04-26] MEDS: Menthol/Lanolin/Calamine/Znox 113 GM Tube 1 APPLIC TOPICAL ×2 (04:13→18:02)
[2020-04-26] MEDS: Midodrine HCl 5 MG Tablet 10 MG PO ×3 (04:13→18:02)
[2020-04-26 04:14] VITALS: BP 146/95; PULSE 70
[2020-04-26] MEDS: Digoxin 125 MCG Tablet PO (04:14)
[2020-04-26 04:15] VITALS: BP 130/82; BP 99/51; PULSE 61; PULSE 68
[2020-04-26 04:45] VITALS: RESP 18; TEMP 36.6; O2SAT 97
[2020-04-26] MEDS: Fludrocortisone Acetate 0.1 MG Tablet 0.2 MG PO (07:52)
--- NOTE | 2020-04-26 10:24 | NURSING ---
Honey Blender Note: Spoke with resident regarding change to visitation policy due to [place] Covid precautions. Res able to leave room at this time as 14 day quarantine period ending. Res understood change and expressed interest in doing therapy out of room and eating at least one meal/ day in common area. Spoke to OT and HIDE SPREADER to inform of desire to eat lunch in common area today.
--- NOTE | 2020-04-26 11:32 | NURSING ---
Addendum entered by Rossana Tinoco 04/26/20 17:36: new order 1 liter bolus, ^ florinef medication. Original Note: assisted pt from bed to BSC x2 assist, pt able to stand but did start to get woozie While pt sitting on BSC, he was reaching for bed foot board d/t feeling dizzy like he was gonna fall. assisted pt to grab onto handles on BSC and not reach farther out to other objects that this may cause pt to fall. will update Dr Gonzalez.
[2020-04-26 14:02] VITALS: BP 140/83; PULSE 77; RESP 17; TEMP 36.4; O2SAT 96
[2020-04-26] MEDS: 0.9% Normal Saline 1,000 ML 999 ML IV (18:23)
[2020-04-26] MEDS: Latanoprost 0.005% 1 Bottle 1 DRP EACH EYE (20:10)
[2020-04-26] MEDS: Atorvastatin Calcium 40 MG Tablet PO (20:10)
[2020-04-26 20:11] VITALS: O2SAT 97
[2020-04-27 05:09] VITALS: BP 123/89; PULSE 81
[2020-04-27] MEDS: Amiodarone 200 MG Tablet PO ×2 (05:09→17:37)
[2020-04-27] MEDS: levETIRAcetam 250 MG Tablet PO ×2 (05:09→17:37)
[2020-04-27] MEDS: Midodrine HCl 5 MG Tablet 10 MG PO ×3 (05:09→17:37)
[2020-04-27] MEDS: Levothyroxine 75 MCG Tablet PO (05:09)
[2020-04-27] MEDS: Digoxin 125 MCG Tablet PO (05:09)
[2020-04-27] MEDS: APIXABAN 2.5 MG TABLET PO ×2 (05:10→17:37)
[2020-04-27] MEDS: Menthol/Lanolin/Calamine/Znox 113 GM Tube 1 APPLIC TOPICAL ×2 (05:10→17:39)
[2020-04-27 05:11] VITALS: BP 151/82; BP 99/50; PULSE 68; PULSE 86; RESP 18; TEMP 37; O2SAT 97
[2020-04-27] MEDS: Fludrocortisone Acetate 0.1 MG Tablet 0.3 MG PO (08:08)
[2020-04-27 10:46] VITALS: PULSE 63; RESP 16; O2SAT 98
[2020-04-27 13:53] VITALS: BP 125/88; PULSE 62; RESP 18; TEMP 36.7; O2SAT 97
[2020-04-27] MEDS: Atorvastatin Calcium 40 MG Tablet PO (21:11)
[2020-04-27] MEDS: Latanoprost 0.005% 1 Bottle 1 DRP EACH EYE (21:11)
[2020-04-28 04:00] VITALS: BP 161/98; PULSE 74; RESP 16; TEMP 36.8; O2SAT 95
[2020-04-28 05:00] VITALS: BP 117/55; BP 133/85; BP 161/98; PULSE 74; PULSE 87
[2020-04-28] MEDS: Amiodarone 200 MG Tablet PO ×2 (06:54→17:56)
[2020-04-28] MEDS: Levothyroxine 75 MCG Tablet PO (06:54)
[2020-04-28] MEDS: APIXABAN 2.5 MG TABLET PO ×2 (06:54→17:56)
[2020-04-28] MEDS: levETIRAcetam 250 MG Tablet PO ×2 (06:54→17:56)
[2020-04-28 06:55] VITALS: BP 161/98; PULSE 74
[2020-04-28] MEDS: Midodrine HCl 5 MG Tablet 10 MG PO ×3 (06:55→17:56)
[2020-04-28] MEDS: Digoxin 125 MCG Tablet PO (06:55)
[2020-04-28] MEDS: Menthol/Lanolin/Calamine/Znox 113 GM Tube 1 APPLIC TOPICAL ×2 (07:01→17:59)
[2020-04-28] MEDS: Fludrocortisone Acetate 0.1 MG Tablet 0.3 MG PO (07:56)
[2020-04-28] MEDS: 0.9% Saline Lock 10 ML Syringe IV (07:57)
[2020-04-28 14:26] VITALS: BP 130/75; PULSE 70; RESP 18; TEMP 36.8; O2SAT 97
[2020-04-28] MEDS: Atorvastatin Calcium 40 MG Tablet PO (20:40)
[2020-04-28] MEDS: Latanoprost 0.005% 1 Bottle 1 DRP EACH EYE (20:42)
[2020-04-28 21:00] VITALS: RESP 16
[2020-04-29 05:00] VITALS: BP 103/62; BP 130/76; BP 148/80; PULSE 73
[2020-04-29 06:45] VITALS: BP 148/80; PULSE 67; RESP 16; TEMP 36.7; O2SAT 95
[2020-04-29 07:01] VITALS: BP 148/80; PULSE 67
[2020-04-29] MEDS: Midodrine HCl 5 MG Tablet 10 MG PO ×3 (07:01→16:47)
[2020-04-29] MEDS: Digoxin 125 MCG Tablet PO (07:01)
[2020-04-29] MEDS: APIXABAN 2.5 MG TABLET PO ×2 (07:02→16:48)
[2020-04-29] MEDS: Menthol/Lanolin/Calamine/Znox 113 GM Tube 1 APPLIC TOPICAL ×2 (07:02→16:54)
[2020-04-29] MEDS: Levothyroxine 75 MCG Tablet PO (07:02)
[2020-04-29] MEDS: Amiodarone 200 MG Tablet PO ×2 (07:02→16:48)
[2020-04-29] MEDS: levETIRAcetam 250 MG Tablet PO ×2 (07:02→16:48)
[2020-04-29] MEDS: Fludrocortisone Acetate 0.1 MG Tablet 0.3 MG PO (08:02)
--- NOTE | 2020-04-29 10:52 | PCA ---
pt rang out an asked for assitance to the lay back in bed, nurse baldev Madison and myself went to assist pt back into bed when he stood up from the recliner with his walker he was unable to bear weight on his legs and was leaning back. pt was complained of being dizzy, sat pt back down an transferred him again pt was unable to stand on his own with x2 assistance and the walker, so Gricelda and i SPT Adilson into bed using just gait belt and our assistance.
[2020-04-29 14:28] VITALS: BP 125/86; PULSE 66; RESP 18; TEMP 520; TEMP 968; O2SAT 97
[2020-04-29] MEDS: Bisacodyl 10 MG Suppository RECTAL (16:48)
--- NOTE | 2020-04-29 16:56 | NURSING ---
Patient complained of constipation and requested PRN rectal suppository at this time. Given per order.
[2020-04-29] MEDS: Atorvastatin Calcium 40 MG Tablet PO (20:51)
[2020-04-29] MEDS: Latanoprost 0.005% 1 Bottle 1 DRP EACH EYE (20:52)
[2020-04-29] MEDS: Acetaminophen 500 MG Tablet 1000 MG PO (21:01)
[2020-04-30 05:15] VITALS: BP 135/79; BP 150/96; PULSE 68; PULSE 69; RESP 18; TEMP 36.6; O2SAT 97
[2020-04-30 05:32] VITALS: BP 150/96; PULSE 68
[2020-04-30] MEDS: Levothyroxine 75 MCG Tablet PO (05:32)
[2020-04-30] MEDS: APIXABAN 2.5 MG TABLET PO ×2 (05:32→17:46)
[2020-04-30] MEDS: Midodrine HCl 5 MG Tablet 10 MG PO ×3 (05:32→17:46)
[2020-04-30] MEDS: Digoxin 125 MCG Tablet PO (05:32)
[2020-04-30] MEDS: Amiodarone 200 MG Tablet PO ×2 (05:32→17:46)
[2020-04-30] MEDS: levETIRAcetam 250 MG Tablet PO ×2 (05:32→17:46)
[2020-04-30] MEDS: Menthol/Lanolin/Calamine/Znox 113 GM Tube 1 APPLIC TOPICAL ×2 (05:36→17:49)
--- NOTE | 2020-04-30 05:38 | NURSING ---
Pt refused to stand this morning when doing orthostatic bps.
[2020-04-30] MEDS: Fludrocortisone Acetate 0.1 MG Tablet 0.3 MG PO (08:02)
[2020-04-30 08:24] LABS: Absolute Lymphocyte Count 1.34 X10^3/uL (0.83-4.51); Absolute Neutrophil Count 5.7 X10^3/uL (2.0-7.7); Basophil# 0.06 X10^3/uL; Basophil% 0.8 % (0-1); Eosinophil# 0.22 X10^3/uL; Eosinophils% 2.8 % (0-5); Hematocrit 46.4 % (40-54); Lymphocyte # 1.34 X10^3/ul (4.0); Lymphocyte % 17.1 % (19-41); Mean Corp Hgb Conc 34.5 g/dL (32-36); Mean Corpuscular Volume 89.9 fL (80-94); Monocyte% 6.4 % (0-10); NRBC Flagged by Analyzer 0 % (0-5); Neutrophil # 5.65 X10^3/uL (2.7-7.7); Neutrophil % 71.9 % (47-70); Platelet Count 257 K/mm3 (150-450); RBC Distribution Width CV 13.9 % (11.6-14.6); RBC Distribution Width SD 45.8 fl (35.1-43.9); Red Blood Count 5.16 M/mm3 (4.6-6.2); White Blood Count 7.9 K/mm3 (4.4-11.0)
[2020-04-30 09:07] LABS: Anion Gap 7 (5-15); BUN 15 mg/dL (7-18); BUN/Creat Ratio 13.4 RATIO (10-20); Calcium,Total 8.7 mg/dL (8.5-10.1); Chloride 104 mmol/L (98-107); Creatinine, Serum 1.12 mg/dL (0.70-1.30); EST Glomerular Filtration Rate 66 mL/min (>60); Est Glom Filt Rate - Afr Amer 80 mL/min (>60); Estimated Creatinine Clearance 52.09 ml/min; Glucose 94 mg/dL (74-106); Potassium 3.5 mmol/L (3.5-5.1); Sodium Level 140 mmol/L (136-145)
[2020-04-30 14:12] VITALS: BP 114/72; PULSE 74; RESP 16; TEMP 36.4; O2SAT 96
[2020-04-30] MEDS: Latanoprost 0.005% 1 Bottle 1 DRP EACH EYE (20:48)
[2020-04-30] MEDS: Atorvastatin Calcium 40 MG Tablet PO (20:48)
[2020-05-01 05:29] VITALS: PULSE 66; RESP 20; TEMP 36.6; O2SAT 99
[2020-05-01 05:31] VITALS: BP 153/115; BP 155/113; PULSE 77; PULSE 78
[2020-05-01 05:35] VITALS: PULSE 78
[2020-05-01] MEDS: Levothyroxine 75 MCG Tablet PO (05:35)
[2020-05-01] MEDS: Digoxin 125 MCG Tablet PO (05:35)
[2020-05-01] MEDS: APIXABAN 2.5 MG TABLET PO ×2 (05:35→17:22)
[2020-05-01] MEDS: levETIRAcetam 250 MG Tablet PO ×2 (05:35→17:22)
[2020-05-01] MEDS: Menthol/Lanolin/Calamine/Znox 113 GM Tube 1 APPLIC TOPICAL ×2 (05:35→17:25)
[2020-05-01] MEDS: Amiodarone 200 MG Tablet PO ×2 (05:35→17:22)
[2020-05-01 06:51] VITALS: BP 146/108
[2020-05-01] MEDS: Fludrocortisone Acetate 0.1 MG Tablet 0.3 MG PO (07:58)
[2020-05-01 10:00] VITALS: PULSE 74; RESP 18; O2SAT 98
--- NOTE | 2020-05-01 11:04 | NURSING ---
Notified Dr. Gonzalez of patient's VS, received order to hold Midodrine one time for noon dose. Order repeated back, will add order.
[2020-05-01 14:11] VITALS: BP 120/75; PULSE 74; RESP 18; TEMP 36.7; O2SAT 97
[2020-05-01] MEDS: Midodrine HCl 5 MG Tablet 10 MG PO (17:22)
[2020-05-01] MEDS: Latanoprost 0.005% 1 Bottle 1 DRP EACH EYE (20:27)
[2020-05-01] MEDS: Atorvastatin Calcium 40 MG Tablet PO (20:28)
[2020-05-02 05:18] VITALS: BP 159/101; PULSE 73
[2020-05-02] MEDS: Polyethylene Glycol 3350 17 GM PACKET PO (05:18)
[2020-05-02] MEDS: Amiodarone 200 MG Tablet PO ×2 (05:18→18:16)
[2020-05-02] MEDS: Levothyroxine 75 MCG Tablet PO (05:18)
[2020-05-02] MEDS: Digoxin 125 MCG Tablet PO (05:18)
[2020-05-02] MEDS: Midodrine HCl 5 MG Tablet 10 MG PO ×3 (05:18→18:16)
[2020-05-02] MEDS: levETIRAcetam 250 MG Tablet PO ×2 (05:18→18:16)
[2020-05-02] MEDS: APIXABAN 2.5 MG TABLET PO ×2 (05:19→18:16)
[2020-05-02 05:20] VITALS: BP 108/60; BP 131/85; BP 159/101; PULSE 70; PULSE 72; PULSE 73
[2020-05-02] MEDS: Menthol/Lanolin/Calamine/Znox 113 GM Tube 1 APPLIC TOPICAL ×2 (05:20→18:16)
[2020-05-02 05:22] VITALS: RESP 18; TEMP 36.9; O2SAT 97
[2020-05-02] MEDS: Fludrocortisone Acetate 0.1 MG Tablet 0.3 MG PO (07:48)
[2020-05-02 11:49] VITALS: BP 136/84; PULSE 69
[2020-05-02 14:45] VITALS: BP 136/91; PULSE 69; RESP 16; TEMP 36.2; O2SAT 97
[2020-05-02] MEDS: Atorvastatin Calcium 40 MG Tablet PO (20:34)
[2020-05-02] MEDS: Latanoprost 0.005% 1 Bottle 1 DRP EACH EYE (20:35)
--- NOTE | 2020-05-02 21:00 | PCM.TCUNOT ---
Subjective: Resident seen for regulatory visit. He has appointment with Dr. Mccoy 05/17/20 to discuss Parkinson Plus syndrome. I told resident previously that I think the etiology of his orthostatic hypotension maybe multiple system atrophy, and his condition is most likely terminal. Vitals/I&O's: Vital Signs Temp Pulse Resp BP Pulse Ox 97.1 F L 69 16 136/91 H 97 05/02/20 14:45 05/02/20 14:45 05/02/20 14:45 05/02/20 14:45 05/02/20 14:45 Oxygen Delivery Method Room Air Weight: 73.7 kg Body Mass Index (BMI) 22.3 Finger Stick Blood Glucose 115 Orthostatic Vital Signs Start: 04/11/20 10:47 Freq: 0400 Status: Active Protocol: Activity Type Activity Date Activity User E-Sign Co-Sign Detail Recorded Client Recorded Date Recorded By Document 05/02/20 05:20 [facility] [id number] 05/02/20 05:22 [facility] 05/02/20 05:20 Orthostatic Vitals Lying -Blood Pressure (90/60-120/80) 159/101 H -Extremity Use Left Arm -Pulse Rate (60-100) 73 Standing -Blood Pressure (90/60-120/80) 108/60 -Extremity Use Left Arm -Pulse Rate (60-100) 70 Sitting -Blood Pressure (90/60-120/80) 131/85 H -Extremity Use Left Arm -Pulse Rate (60-100) 72 Intake and Output for Last 24 Hours 04/30/20 05/01/20 05/02/20 23:59 23:59 23:59 Intake Total 240 / 240 720 / 720 600 / 600 Output Total 150 / 150 400 / 400 Balance 90 / 90 720 / 720 200 / 200 Past Medical History Past Medical History (Chronic Problems): Chronic Problems (Last Reviewed 04/18/20 @ 14:[address] 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 use of anticoagulant (Chronic) TIA (transient ischemic attack) (Chronic) Chronic a-fib (Chronic) Ventricular tachycardia (Chronic) Cardiomyopathy, dilated, nonischemic (Chronic) Atherosclerotic heart disease of [place] coronary artery without angina pectoris (Chronic) [id number] LAD 09/21/2004 History of coronary artery stent placement (Chronic 09/21/04) [id number] LAD 09/21/2004 Longstanding persistent atrial fibrillation (Chronic) 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 Russel Byrne, DO) Cardiomyopathy, dilated, nonischemic (Chronic) I42.0 Atherosclerotic heart disease of [place] coronary artery without angina pectoris (Chronic) I25.10 [id number] LAD 09/21/2004 Longstanding persistent atrial fibrillation (Chronic) I48.11 Essential (primary) hypertension (Chronic) I10 Hyperlipidemia (Chronic) E78.5 Bundle branch block, right (Chronic) I45.10 Glaucoma H40.9 History of 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 Onset Date: 09/13/08 Z86.79 09/13/2008 Hypothyroidism E03.9 Osteoarthritis M19.90 Lower GI bleed K92.2 Allergies hydrochlorothiazide Adverse Reaction (Intermediate, Verified 04/18/20 11:56) syncope Home Medications: Ambulatory Orders Medication Instructions Recorded Latanoprost 0.005% [Xalatan 1 drp EACH EYE QHS 07/31/18 Opthalmic] Acetaminophen [Tylenol] 500 mg PO DAILY PRN PRN 03/14/20 Apixaban [Eliquis] 2.5 mg PO BID 03/14/20 Atorvastatin Calcium [Lipitor] 40 mg PO DAILY@2200 03/14/20 Levothyroxine Sodium [Synthroid] 75 mcg PO DAILY 03/14/20 Potassium Chloride [K-Dur] 40 meq PO DAILYCM 03/14/20 midodrine 10 mg tablet 10 mg PO TID 04/01/20 Amiodarone HCl [Cordarone] 200 mg PO BID 04/08/20 Digoxin [Lanoxin] 125 mcg PO DAILY 04/08/20 Fludrocortisone Acetate [Florinef] 0.2 mg PO DAILY@0800 04/08/20 Menthol/Lanolin/Calamine/Znox 1 applic TOPICAL BID 04/18/20 [Calmoseptine Ointment] Mineral Oil/Petrolatum,White 1 applic TOPICAL BID PRN PRN 04/18/20 [Eucerin] Polyethylene Glycol 3350 [Miralax] 17 gm PO DAILY 04/18/20 levETIRAcetam tablet [Keppra 250 mg PO BID 04/18/20 tablet] Surgical History: Surgical History (Last Reviewed 04/18/20 @ 14:[address] Russel Byrne DO) History of coronary artery stent placement (Chronic) Onset Date: 09/21/04 Z95.5 [id number] LAD 09/21/2004 Presence of permanent cardiac pacemaker (Chronic) Onset Date: 10/17/15 Z95.0 Permanent Pacemaker insertion, single chamber 10/17/15, [employer] History of bilateral cataract extraction Z98.41, Z98.42 History of bilateral knee replacement Z96.653 06/22/2014 History of craniotomy Onset Date: 09/13/08 Z98.890 09/13/08 for 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 History of radiofrequency ablation procedure for cardiac arrhythmia Z98.890 Surgical History: angioplasty - Cardiac stent., cataract, herniorrhaphy, pacemaker implantation, total knee arthroplasty, - - Neurosurgery for traumatic intracranial bleed 10 years ago or more Psychiatric History: No pertinent psych hx Lives: With Family - Lives with daughter Mar. Smoking Status: Unknown if ever smoked Tobacco Use: Cigarettes Alcohol: None Drugs: None - *Family History Maternal Family History: Family History (Last Reviewed 04/18/20 @ 14:[address] Russel Byrne DO) Father CAD (coronary artery disease) Myocardial infarction Sudden cardiac Mother No problems noted. Uncle CAD (coronary artery disease) Sudden cardiac Myocardial infarction Other Heart disease History Items: - - Denies any market maternal family history including heart disease, diabetes or cancer. Paternal Family History: Family History (Last Reviewed 04/18/20 @ 14:[address] Russel Byrne DO) Father CAD (coronary artery disease) Myocardial infarction Sudden cardiac Mother No problems noted. Uncle CAD (coronary artery disease) Sudden cardiac Myocardial infarction Other Heart disease History Items: High Cholesterol, Heart Disease, Hypertension, - - father had mi at age 69 Capacity - Capacity Assessment Tool Can the patient make a choice & communicate that choice?: Yes Can the patient understand benefits, risks and alternatives?: Yes Can the patient make a logical, rational choice?: Yes Is the choice the patient makes consistent w/ their values?: Yes Is there an impending, emergent risk to the patient?: No Does the patient have an Advance Directive?: Yes Is there a Surrogate Available?: Yes i.e. HCPOA: Yes i.e. close relative (spouse, child, parent, sibling)?: Yes Review of Systems Constitutional: Denies: Chills, Fever, Weight Change HEENT: Denies: Head Aches, Sinus Congestion, Sinus Drainage Cardiovascular: Denies: Chest Pain, Palpitations Respiratory: Denies: Cough, Shortness of breath at rest, Sputum production Gastrointestinal: Denies: Abdominal Pain, Nausea, Vomiting Genitourinary: Denies: Dysuria Musculoskeletal: Denies: Joint Pain, Joint Tenderness Skin: Denies: Rash, Wounds Neurological: Denies: Numbness, Tingling, Focal weakness Psychiatric: Denies: Anxiety, Depression, Homicidal Ideations, Suicidal Ideations Hematologic/ Lymphatic: Denies: Easy Bruising, Easy Bleeding - Physical Exam Vitals/I&O's: Vital Signs Temp Pulse Resp BP Pulse Ox 97.1 F L 69 16 136/91 H 97 05/02/20 14:45 05/02/20 14:45 05/02/20 14:45 05/02/20 14:45 05/02/20 14:45 Oxygen Delivery Method Room Air Weight: 73.7 kg Body Mass Index (BMI) 22.3 Finger Stick Blood Glucose 115 Orthostatic Vital Signs Start: 04/11/20 10:47 Freq: 0400 Status: Active Protocol: Activity Type Activity Date Activity User E-Sign Co-Sign Detail Recorded Client Recorded Date Recorded By Document 05/02/20 05:20 [facility] [id number] 05/02/20 05:22 [facility] 05/02/20 05:20 Orthostatic Vitals Lying -Blood Pressure (90/60-120/80) 159/101 H -Extremity Use Left Arm -Pulse Rate (60-100) 73 Standing -Blood Pressure (90/60-120/80) 108/60 -Extremity Use Left Arm -Pulse Rate (60-100) 70 Sitting -Blood Pressure (90/60-120/80) 131/85 H -Extremity Use Left Arm -Pulse Rate (60-100) 72 Intake and Output for Last 24 Hours 04/30/20 05/01/20 05/02/20 23:59 23:59 23:59 Intake Total 240 / 240 720 / 720 600 / 600 Output Total 150 / 150 400 / 400 Balance 90 / 90 720 / 720 200 / 200 General: Alert, Oriented x3, Cooperative HEENT: Atraumatic, PERRLA, EOMI, Normocephalic Neck: Supple, No JVD, Negative Carotid Bruits Lungs: Clear to auscultation, Normal air movement Cardiovascular: Regular rate, No murmurs Abdomen: Bowel Sounds Present, Soft, Non Tender Extremities: No edema, Capillary Refill Less than 3 Seconds Skin: No rashes, No breakdown Musculoskeletal: No Tenderness to Palpation of Joints or Extremities Neurological: Cranial nerves II-XII grossly intact Psych/Mental Status: Normal Affect, Appropriate Current Medications Acetaminophen (Tylenol) 1,000 mg PO Q6H PRN PRN Reason: Pain Score 1-10 Last Admin: 04/29/20 21:01 Dose: 1,000 mg Documented by: Amiodarone HCl (Cordarone) 200 mg PO BID [facility] Last Admin: 05/02/20 18:16 Dose: 200 mg Documented by: Apixaban (Eliquis) 2.5 mg PO BID [facility] Last Admin: 05/02/20 18:16 Dose: 2.5 mg Documented by: Atorvastatin Calcium (Lipitor) 40 mg PO DAILY@2200 [facility] Last Admin: 05/02/20 20:34 Dose: 40 mg Documented by: Bisacodyl (Dulcolax) 10 mg RECTAL DAILY PRN PRN Reason: Constipation Last Admin: 04/29/20 16:48 Dose: 10 mg Documented by: Calamine/Phenol (Calmoseptine Ointment) 1 applic TOPICAL 0600,1800 [facility]; Protocol Last Admin: 05/02/20 18:16 Dose: 1 applicatio Documented by: Digoxin (Lanoxin) 125 mcg PO DAILY [facility] Last Admin: 05/02/20 05:18 Dose: 125 mcg Documented by: Fludrocortisone Acetate (Florinef) 0.3 mg PO DAILY@0800 [facility] Last Admin: 05/02/20 07:48 Dose: 0.3 mg Documented by: Latanoprost (Xalatan Opthalmic) 1 drop EACH EYE QHS [facility] Last Admin: 05/02/20 20:35 Dose: 1 drop Documented by: Levetiracetam (Keppra Tablet) 250 mg PO BID [facility] Last Admin: 05/02/20 18:16 Dose: 250 mg Documented by: Levothyroxine Sodium (Synthroid) 75 mcg PO DAILY@0600 [facility] Last Admin: 05/02/20 05:18 Dose: 75 mcg Documented by: Midodrine (Proamatine) 10 mg PO 0600,1200,1800 [facility] Last Admin: 05/02/20 18:16 Dose: 10 mg Documented by: Multi-Ingredient Cream (Eucerin) 1 applic TOPICAL 0600,2200 [facility]; Protocol Last Admin: 05/02/20 20:36 Dose: 1 applicatio Documented by: Polyethylene Glycol (Miralax) 17 gm PO DAILY [facility] Last Admin: 05/02/20 05:18 Dose: 17 gm Documented by: Potassium Chloride (K-Dur) 40 meq PO DAILYCM [facility] Last Admin: 05/02/20 07:48 Dose: 40 meq Documented by: Senna/Docusate Sodium (Senokot-S, Richa-Colace) 1 tablet PO BID PRN PRN Reason: Constipation Sodium Chloride () 10 - 40 ml IV UD PRN PRN Reason: SALINE FLUSH Last Admin: 04/28/20 07:57 Dose: 10 ml Documented by: Assessment/Plan All Active Problems (Last Reviewed 04/18/20 @ 14:[address] Russel Byrne, DO) Abnormal EKG (Acute) 84 year old male with below past medical history hospitalized for syncope secondary to orthostatic hypotension due to Parkinson Plus syndrome, complicated by scalp laceration, admitted to TCU with debility, here for rehabilitation, strengthening, prior to discharge home with daughter. Debility - PT/OT. Pain - Tylenol 1000MG Q6H PRN pain (1-3). Bowel - Miralax 17GM daily, Senna/colace 1 tablet BID, Dulcolax 10MG [place] daily PRN. Adult immunization - Administer Prevnar 13, Pneumovax 23, Fluzone as appropriate. DVT prophylaxis - Not necessary, on Eliquis 2.5MG BID. Atrial fibrillation - Amiodarone 200MG BID, Digoxin 125MCG daily, Eliquis 2.5MG BID. Hyperlipidemia - Atorvastatin 40MG QHS. Orthostatic hypotension - Midodrine 10MG TID, Florinef 0.3Mg daily, continue to titrate Florinef if dizziness recurs. As outpatient, consider Northera, tapering off Florinef, Midodrine. Northera has fewer side effects. Resident already has supine hypertension. Glaucoma - Xalatan 0.005% 1 GTT OU QHS. Seizure disorder - Keppra 250MG BID. Hypothyroidism Levothyroxine 75MCG daily. Hypokalemia - K-Dur 40MEQ daily. Skin irritation - Calmoseptine BID, Eucerin topical BID. Parkinson Plus Syndrome: Progressive Supranuclear Palsy - Unlikely, he is able to look up and down without problem. 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 Dementia of Lewy Bodies - Unlikely, no dementia, no hallucinations. 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 I let him know he has weeks to months to live, very little treatment available, save his current treatment. 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 End of life - consider hospice care services as his prognosis is poor. Family is in denial.
[2020-05-03 06:13] VITALS: BP 134/93; PULSE 84; RESP 18; TEMP 36.4; O2SAT 97
[2020-05-03 06:14] VITALS: BP 100/81; BP 122/74; BP 134/93; PULSE 113; PULSE 67; PULSE 69
[2020-05-03 06:22] VITALS: BP 132/93; PULSE 100
[2020-05-03] MEDS: Digoxin 125 MCG Tablet PO (06:22)
[2020-05-03] MEDS: Midodrine HCl 5 MG Tablet 10 MG PO ×3 (06:22→18:00)
[2020-05-03] MEDS: Levothyroxine 75 MCG Tablet PO (06:22)
[2020-05-03] MEDS: levETIRAcetam 250 MG Tablet PO ×2 (06:23→18:00)
[2020-05-03] MEDS: Amiodarone 200 MG Tablet PO ×2 (06:23→18:00)
[2020-05-03] MEDS: APIXABAN 2.5 MG TABLET PO ×2 (06:23→17:59)
[2020-05-03] MEDS: Menthol/Lanolin/Calamine/Znox 113 GM Tube 1 APPLIC TOPICAL ×2 (06:23→18:00)
[2020-05-03] MEDS: Polyethylene Glycol 3350 17 GM PACKET PO (06:27)
[2020-05-03] MEDS: Fludrocortisone Acetate 0.1 MG Tablet 0.3 MG PO (07:39)
[2020-05-03 13:52] VITALS: BP 114/76; PULSE 61; RESP 16; TEMP 36.8; O2SAT 97
[2020-05-03] MEDS: Atorvastatin Calcium 40 MG Tablet PO (20:46)
[2020-05-03] MEDS: Mirtazapine 15 MG Tablet 7.5 MG PO (20:47)
[2020-05-03] MEDS: Latanoprost 0.005% 1 Bottle 1 DRP EACH EYE (20:49)
[2020-05-04 05:30] VITALS: BP 144/89; PULSE 67
[2020-05-04] MEDS: Polyethylene Glycol 3350 17 GM PACKET PO (05:30)
[2020-05-04] MEDS: levETIRAcetam 250 MG Tablet PO ×2 (05:30→18:04)
[2020-05-04] MEDS: Midodrine HCl 5 MG Tablet 10 MG PO ×3 (05:30→18:03)
[2020-05-04] MEDS: Amiodarone 200 MG Tablet PO ×2 (05:30→18:04)
[2020-05-04] MEDS: Digoxin 125 MCG Tablet PO (05:30)
[2020-05-04] MEDS: Levothyroxine 75 MCG Tablet PO (05:30)
[2020-05-04] MEDS: Menthol/Lanolin/Calamine/Znox 113 GM Tube 1 APPLIC TOPICAL ×2 (05:31→18:04)
[2020-05-04] MEDS: APIXABAN 2.5 MG TABLET PO ×2 (05:32→18:04)
[2020-05-04 06:02] VITALS: RESP 18; TEMP 36.6; O2SAT 97
[2020-05-04] MEDS: Fludrocortisone Acetate 0.1 MG Tablet 0.3 MG PO (07:59)
[2020-05-04 10:00] VITALS: RESP 18
[2020-05-04 14:14] VITALS: BP 103/72; PULSE 71; RESP 18; TEMP 36.4; O2SAT 97
--- NOTE | 2020-05-04 15:20 | CASEMGMT ---
Social Work Spoke with physician about patient's prognosis. Met with patient to follow up. Pt expresses he understands the conversation with the physician and realistic to his prognosis. He would like to wait to make decisions until after his neurology appt 05/17. Pt states he knows he cannot go home due to the care he needs. He agreed to a list of SNFs. Provided list. Explained will see about DC date due to Medicare coverage. Pt understands. Spoke with pt's daughter about above. Dtr understandable, but emotional. Provided support. Explained pt can make his own decisions and he is agreeable to a SNF and hospice. Inquired about payment for SNF - Medicaid or private pay. Dtr unsure. Dtr requested a conference call with her and her son to discuss further details. SW agreed. PRITI emailed Medicaid application, SNF list, and explanation about coverage and Palliative vs Hospice. Will continue to follow. EDWIN IsidroW
[2020-05-04] MEDS: Atorvastatin Calcium 40 MG Tablet PO (19:44)
[2020-05-04] MEDS: Mirtazapine 15 MG Tablet 7.5 MG PO (19:44)
[2020-05-04] MEDS: Latanoprost 0.005% 1 Bottle 1 DRP EACH EYE (19:46)
[2020-05-04 20:08] LABS: Anion Gap 3 (5-15); BUN 23 mg/dL (7-18); BUN/Creat Ratio 16.3 RATIO (10-20); Calcium,Total 8.6 mg/dL (8.5-10.1); Chloride 109 mmol/L (98-107); Creatinine, Serum 1.41 mg/dL (0.70-1.30); EST Glomerular Filtration Rate 51 mL/min (>60); Est Glom Filt Rate - Afr Amer 62 mL/min (>60); Estimated Creatinine Clearance 40.78 ml/min; Glucose 95 mg/dL (74-106); Potassium 4.2 mmol/L (3.5-5.1); Sodium Level 141 mmol/L (136-145)
[2020-05-04 20:09] LABS: Absolute Lymphocyte Count 1.75 X10^3/uL (0.83-4.51); Absolute Neutrophil Count 8.4 X10^3/uL (2.0-7.7); Basophil# 0.08 X10^3/uL; Basophil% 0.7 % (0-1); Eosinophil# 0.22 X10^3/uL; Hematocrit 47.1 % (40-54); Hemoglobin 15.8 g/dL (13.0-16.5); Lymphocyte # 1.75 X10^3/ul (4.0); Lymphocyte % 15.5 % (19-41); Mean Corp Hgb Conc 33.5 g/dL (32-36); Mean Corpuscular Hgb 30.4 pg (27.0-32.0); Mean Corpuscular Volume 90.6 fL (80-94); Mean Platelet Vol. 10.4 fl (6.2-12.0); Monocyte# 0.72 X10^3/uL; Monocyte% 6.4 % (0-10); NRBC Flagged by Analyzer 0 % (0-5); Neutrophil # 8.43 X10^3/uL (2.7-7.7); Neutrophil % 74.8 % (47-70); Platelet Count 305 K/mm3 (150-450); RBC Distribution Width CV 14.4 % (11.6-14.6); RBC Distribution Width SD 47.9 fl (35.1-43.9); White Blood Count 11.3 K/mm3 (4.4-11.0)
[2020-05-04 20:14] LABS: Mucous, Urine 0 SEEN /hpf (<or=2+); Squamous Epithelial Cells - UA 0 SEEN /hpf (0-5); White Blood Cells 0 SEEN /hpf (0-5)
[2020-05-04 20:26] LABS: Color, Urine Yellow (Yellow); Glucose, Dipstick Normal (Normal); Ketone-Dipstick Negative (Negative); Leukocyte Esterase-Dipstick Negative /ul (Negative); Nitrite-Dipstick Negative (Negative); Occult Blood-Urine 250 /ul (Negative); Protein-Dipstick 30 mg/dl (Negative); Urine Clarity Sl. Cloudy (Clear); Urine Urobilinogen 4 mg/dl (Normal)
[2020-05-04 20:27] LABS: Urine Bilirubin Dipstick 1 mg/dL (Negative)
[2020-05-04 20:46] LABS: Red Blood Cells-Urine 50-100 SEEN /hpf (0-5)
[2020-05-04 20:49] LABS: Bacteria 1+ /hpf (None Seen)
[2020-05-04] MEDS: 0.9% Normal Saline 1,000 ML 75 ML IV (21:50)
[2020-05-05 05:04] VITALS: BP 138/96; PULSE 62
[2020-05-05] MEDS: levETIRAcetam 250 MG Tablet PO ×2 (05:04→17:15)
[2020-05-05] MEDS: Levothyroxine 75 MCG Tablet PO (05:04)
[2020-05-05] MEDS: Midodrine HCl 5 MG Tablet 10 MG PO ×3 (05:04→17:16)
[2020-05-05] MEDS: Polyethylene Glycol 3350 17 GM PACKET PO (05:04)
[2020-05-05] MEDS: APIXABAN 2.5 MG TABLET PO ×2 (05:04→17:15)
[2020-05-05] MEDS: Digoxin 125 MCG Tablet PO (05:04)
[2020-05-05] MEDS: Amiodarone 200 MG Tablet PO ×2 (05:04→17:14)
[2020-05-05] MEDS: Menthol/Lanolin/Calamine/Znox 113 GM Tube 1 APPLIC TOPICAL ×2 (05:05→17:14)
[2020-05-05 05:10] VITALS: RESP 17; TEMP 36.9; O2SAT 97
--- NOTE | 2020-05-05 05:11 | NURSING ---
This nurse into give AM meds. Vital signs taken. Pt stating he had to get ready for work. Explained that pt was at the hospital. Pt easily reoriented. A&O3. When going to give AM meds it required lots of cuing for pt to take a drink of water and to swallow. Pt took meds and then stated again that he needed to get ready for work. This nurse explained again that we were at the hospital. Pt reoriented easily again. Pt denied further needs. Resting in bed, PA on, NS running at 75ml/hr in Left forearm.
[2020-05-05 06:25] LABS: Anion Gap 7 (5-15); BUN 19 mg/dL (7-18); BUN/Creat Ratio 16.5 RATIO (10-20); Calcium,Total 8.2 mg/dL (8.5-10.1); Chloride 109 mmol/L (98-107); Creatinine, Serum 1.15 mg/dL (0.70-1.30); EST Glomerular Filtration Rate 64 mL/min (>60); Est Glom Filt Rate - Afr Amer 78 mL/min (>60); Glucose 76 mg/dL (74-106); Sodium Level 142 mmol/L (136-145)
[2020-05-05] MEDS: Fludrocortisone Acetate 0.1 MG Tablet 0.3 MG PO (08:42)
[2020-05-05 10:00] VITALS: PULSE 80; RESP 18
--- NOTE | 2020-05-05 12:00 | CASEMGMT ---
Social Work Spoke with IDT about pt's progress and DC plans. Pt would DC prior to appt 05/17 as he is not continuing to meet Medicare guidelines. The goal is for pt to DC to SNF and to begin that transition now. Pt can still attend appt at SNF. Spoke with pt about above information. Dtr expressing being overwhelmed with all of the information and decisions that need to be made. Answered questions and reexplained Medicare is no longer paying for SNF after pt DCs from TCU. Pt would pay out of pocket or MARY. Dtr requesting direction from SW. SW advised dtr to make a list of what to do next: see if son would like to schedule conference call with dtr and SW, look into pt's assets and income for SW to determine if he could be eligible for MARY, and to utilize Medicare.gov to choose three SNFs for SW to refer to. Dtr appreciative of assistance and will reach out to SW with information or more questions. Will continue to follow. EDWIN IsidroW
[2020-05-05 14:08] VITALS: BP 128/82; PULSE 61; RESP 16; TEMP 36.7; O2SAT 97
[2020-05-05] MEDS: Mirtazapine 15 MG Tablet 7.5 MG PO (20:32)
[2020-05-05] MEDS: Atorvastatin Calcium 40 MG Tablet PO (20:32)
[2020-05-05] MEDS: Latanoprost 0.005% 1 Bottle 1 DRP EACH EYE (20:33)
[2020-05-06 06:12] VITALS: BP 168/96; PULSE 64; RESP 18; TEMP 36.6; O2SAT 98
[2020-05-06 06:17] VITALS: BP 168/96; PULSE 64
[2020-05-06] MEDS: APIXABAN 2.5 MG TABLET PO (06:17)
[2020-05-06] MEDS: Amiodarone 200 MG Tablet PO (06:17)
[2020-05-06] MEDS: Digoxin 125 MCG Tablet PO (06:17)
[2020-05-06] MEDS: Midodrine HCl 5 MG Tablet 10 MG PO (06:17)
[2020-05-06] MEDS: levETIRAcetam 250 MG Tablet PO (06:17)
[2020-05-06] MEDS: Menthol/Lanolin/Calamine/Znox 113 GM Tube 1 APPLIC TOPICAL (06:18)
[2020-05-06] MEDS: Levothyroxine 75 MCG Tablet PO (06:19)
[2020-05-06] MEDS: Fludrocortisone Acetate 0.1 MG Tablet 0.3 MG PO (08:35)
[2020-05-06] MEDS: Tamsulosin HCl 0.4 MG Capsule PO (11:34)
--- NOTE | 2020-05-06 11:40 | NURSING ---
st cath @ 0930 for 600 ml of clear yellow urine
[2020-05-06 14:05] VITALS: BP 117/90; PULSE 80; RESP 15; TEMP 36.7; O2SAT 97
--- NOTE | 2020-05-06 14:09 | CHAPLAIN ---
Type of Pastoral Visit _x__ Initial Visit ___ Follow-up Visit ___ On-call Visit ___ General Patient Visit ___ Spiritual Assessment ___ Family Conference ___ Bereavement ___ Rapid Response ___ Code Blue ___ Other (describe below) Pastoral Care Referral From ___ Patient ___ Family _x__ Nurse ___ Physician ___ Planner Scheduler ___ Flight Engineer Inspector ___ Other (describe below) Sacrament/Intervention _x__ Active listening ___ Anointing ___ Episcopal ___ Bereavement ___ Communion ___ Nette exploration ___ ___ Life review ___ Prayer ___ Reconciliation ___ Sacrament of Sick _x__ Supportive presence ___ Wedding ___ Other (describe below) Pastoral Comments patient is focused solely on calling on the phone to talk with the doctor and to have this garage worker make phone call to this hotel; pt appears to be confused to whereabouts; gave presence to patient and assisted him in finding glasses, pen, pad, etc. and gave reassurance of care and support
[2020-05-06] MEDS: Lidocaine Jelly 2% 20 ML Syringe (URO-JET) 20 APPLIC TOPICAL (14:18)
--- NOTE | 2020-05-06 15:02 | CASEMGMT ---
Social Work Spoke with dtr several times throughout the day and had conference call with dtr and son. Reexplained Medicare coverage, private pay and Medicaid. Explained pt would not qualify for AL due to x2-3 person assist. Reexplained hospice services. Dtr reported pt makes $2242/mo in SSI and his pension stopped in March, and he has some assets. Explained pt would need a QIT and to liquidate assets prior to being eligible for MARY. Dtr stated it is not a problem to pay up front for 30 days to admit to a SNF. Explained SW at SNF will assist with applying for MARY when needed. Dtr provided [facility] and [facility] for SW to refer to. Dtr and son would like to see whom will accept pt and then bring that information to pt for him to make the final decision. At that time, will revisit hospice and have pt make that decision as well. Dtr and son very appreciative of SW assistance. Contacted [facility] - they do not have any current availability. Referred to [facility] and [facility]. Will continue to follow. Cheri Trivedi, EDWIN COURTNEYW
--- NOTE | 2020-05-06 17:00 | NURSING ---
pt f/c irrigaTED W/ 30 ML OF sns AND NO RETURN-PT HAS BLEEDING IN THE F/C TUBING, PT HAS PULLED ON F/C AND HAS CATH SECURED RIPPED OFF LEG-DR BROWN NOTIFIED AND PT D/T BEING ON ELIQUIS AND OUTPUT LOOKS LIKE MOSTLY BLOOD AT THIS TIME-PT IS TRANSFERRED BY BED TO ER
[2020-05-06 19:00] VITALS: BP 138/91; PULSE 82; RESP 18; TEMP 36.3; O2SAT 93
--- NOTE | 2020-05-06 19:13 | NURSING ---
REPORT CALLED TO ER AFTER SPEAKING TO DR BROWN AND HE SAID TO SEND PT BACK TO ER FOR CONTINUED GROSS HEMATURIA-FAMILY ALSO NOTIFIED
--- NOTE | 2020-05-06 19:17 | NURSING ---
ER CALLED AND SAID DO NOT BRING PT DOWN, THEY DO NOT HAVE BED
--- NOTE | 2020-05-06 19:37 | NURSING ---
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
--- NOTE | 2020-05-07 10:40 | DCINST_ITS ---
- Discharge Diagnoses Current Active Problems: Current Active and Chronic Problems (Last Reviewed 05/07/20 @ 04:[address] Fabian Elizabeth MD) Michael catheter problem (Acute) Acute urinary retention (Acute) Gross hematuria (Acute) You will use the following diet at home:: No restrictions, Regular Your food should be the consistency of: Regular Your liquids should be the consistency of: Regular/Thin Discharge Activity: Use Walker Weight Bearing Status: Weight bearing as tolerated Call your doctor if you observe: Fever of 101 or Higher, Inability to urinate, Inability to have a bowel movement, Shortness of breath, Chest pain, Uncontrolled pain Allergies/Adverse Reactions: Allergies hydrochlorothiazide Adverse Reaction (Intermediate, Verified 05/06/20 17:02) syncope Medications to take at Discharge Latanoprost 0.005% [Xalatan Opthalmic] 1 drp EACH EYE QHS 07/31/18 Apixaban [Eliquis] 2.5 mg PO BID 03/14/20 Atorvastatin Calcium [Lipitor] 40 mg PO DAILY@2200 03/14/20 Levothyroxine Sodium [Synthroid] 75 mcg PO DAILY 03/14/20 Potassium Chloride [K-Dur] 40 meq PO DAILYCM 03/14/20 midodrine 10 mg tablet 10 mg PO TID 04/01/20 Amiodarone HCl [Cordarone] 200 mg PO BID 04/08/20 Digoxin [Lanoxin] 125 mcg PO DAILY 04/08/20 Fludrocortisone Acetate [Florinef] 0.3 mg PO DAILY@0800 04/08/20 Menthol/Lanolin/Calamine/Znox [Calmoseptine Ointment] 1 applic TOPICAL BID 04/18/20 Mineral Oil/Petrolatum,White [Eucerin] 1 applic TOPICAL BID PRN PRN 04/18/20 Polyethylene Glycol 3350 [Miralax] 17 gm PO DAILY 04/18/20 levETIRAcetam tablet [Keppra tablet] 250 mg PO BID 04/18/20 Mirtazapine 7.5 mg PO QHS 05/06/20 Tamsulosin HCl [Flomax] 0.4 mg PO 1730 05/06/20 Primary Care Physician: Dariusz Gonzalez Chi, MD [Primary Care Provider] - Please follow up with your Primary Care Physician in: 1 week. Test Results: Test results from this visit will be discussed in further detail at your follow- up appointment, if applicable. Please Follow Up With: Saloni HOOKS Please Follow Up With: Dr Mccoy When: 05/17/20 Proposed Discharge Date: 05/06/20
--- NOTE | 2020-05-07 10:42 | DS.PCM_ITS ---
Discharge Date and Diagnosis - Problem List Patient Problems: Active and Suspected Problems (Last Reviewed 05/07/20 @ 04:[address] Fabian Elizabeth MD) Hernandez catheter problem (Acute) Acute urinary retention (Acute) Gross hematuria (Acute) Date of Admission: 04/08/20 Date of Discharge: 05/06/20 - Primary Discharge Diagnosis Acute Problems: Active Problems (Last Reviewed 05/07/20 @ 04:[address] Fabian Elizabeth MD) Hernandez catheter problem (Acute) Acute urinary retention (Acute) Gross hematuria (Acute) - Secondary Discharge Diagnosis Chronic Problems: Chronic Problems (Last Reviewed 05/07/20 @ 04:[address] Fabian Elizabeth MD) Atrial fibrillation (Chronic) Orthostatic hypotension (Chronic) Debility (Chronic) Syncope (Chronic) dizziness/pre-syncope Parkinson's plus syndrome (Chronic) Coronary artery disease (Chronic) Hypertension (Chronic) Glaucoma (Chronic) Hypothyroidism (Chronic) Hypokalemia (Chronic) Seizure disorder (Chronic) BPH (benign prostatic hyperplasia) (Chronic) FDC current use of anticoagulant (Chronic) TIA (transient ischemic attack) (Chronic) Chronic a-fib (Chronic) Ventricular tachycardia (Chronic) Cardiomyopathy, dilated, nonischemic (Chronic) Atherosclerotic heart disease of [place] coronary artery without angina pectoris (Chronic) [id number] LAD 09/21/2004 History of coronary artery stent placement (Chronic 09/21/04) [id number] LAD 09/21/2004 Longstanding persistent atrial fibrillation (Chronic) 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 05/06/20 Resident had urinary retention, traumatic hernandez catheter insertion, on Eliquis, had gross hematuria not subsiding. 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 I told Adilson he is dying, he accepted his prognosis, he is ready to . His family are holding on tight. Adilson has appointment with Dr. Mccoy 05/17/20 for consultation. Family holding out hope there is treatment for his condition. Over the past week, Adilson has developed cognitive dysfunction, agitation, I think he will transition to actively dying soon. He is also not eating. Consider transition to inpatient hospice, home with hospice, or [facility] with hosp[facility]. Adilson is unable to do therapy because he passes out every time he stands up. Discharge to [facility] Emergency Department for evaluation, admission to [facility]. Patient Problems: Active and Suspected Problems (Last Reviewed 05/07/20 @ 04:[address] Fabian Elizabeth MD) Hernandez catheter problem (Acute) Acute urinary retention (Acute) Gross hematuria (Acute) - Physical Exam Vitals/I&O's: Vital Signs Temp Pulse Resp BP Pulse Ox 97.3 F L 82 18 138/91 H 93 05/06/20 19:00 05/06/20 19:00 05/06/20 19:00 05/06/20 19:00 05/06/20 19:00 Oxygen Delivery Method Room Air Weight: 72.631 kg Body Mass Index (BMI) 22.3 Finger Stick Blood Glucose 115 Intake and Output for Last 24 Hours 05/05/20 05/06/20 05/07/20 23:59 23:59 23:59 Intake Total 1835 / 1835 Balance 1835 / 1835 Microbiology Past 72 Hours 05/04/20 20:05 Urine, Catheterized Urine Culture - Final Culture exhibits no growth. Discharge Diet: No Restrictions Discharge Activity: Use Walker Weight Bearing Status: Weight bearing as tolerated Call your doctor if you observe: Fever of 101 or Higher, Inability to urinate, Inability to have a bowel movement, Shortness of breath, Chest pain, Uncontrolled pain Home Medications: Medications to take at Discharge Latanoprost 0.005% [Xalatan Opthalmic] 1 drp EACH EYE QHS 07/31/18 Apixaban [Eliquis] 2.5 mg PO BID 03/14/20 Atorvastatin Calcium [Lipitor] 40 mg PO DAILY@2200 03/14/20 Levothyroxine Sodium [Synthroid] 75 mcg PO DAILY 03/14/20 Potassium Chloride [K-Dur] 40 meq PO DAILYCM 03/14/20 midodrine 10 mg tablet 10 mg PO TID 04/01/20 Amiodarone HCl [Cordarone] 200 mg PO BID 04/08/20 Digoxin [Lanoxin] 125 mcg PO DAILY 04/08/20 Fludrocortisone Acetate [Florinef] 0.3 mg PO DAILY@0800 04/08/20 Menthol/Lanolin/Calamine/Znox [Calmoseptine Ointment] 1 applic TOPICAL BID 04/18/20 Mineral Oil/Petrolatum,White [Eucerin] 1 applic TOPICAL BID PRN PRN 04/18/20 Polyethylene Glycol 3350 [Miralax] 17 gm PO DAILY 04/18/20 levETIRAcetam tablet [Keppra tablet] 250 mg PO BID 04/18/20 Mirtazapine 7.5 mg PO QHS 05/06/20 Tamsulosin HCl [Flomax] 0.4 mg PO 1730 05/06/20 Primary Care Physician: Dariusz Gonzalez Chi, MD [Primary Care Provider] - Please follow up with your Primary Care Physician in: 1 week. Please Follow Up With: Saloni HOOKS Please Follow Up With: Dr Mccoy When: 05/17/20 Disposition: Acute care Hospital Patient Condition:: Poor Medical Necessity - Tobacco Use Smoking Status: Unknown if ever smoked Tobacco Use: Cigarettes Meaningful Use Info Meaningful Use Diagnoses (Choose all that apply): None applicable
[2020-05-07 15:08] VITALS: BP 128/71; PULSE 71; RESP 18; TEMP 36.4; O2SAT 96
--- NOTE | 2020-05-07 15:11 | NURSING ---
pt arrived back from [facility] via bed, mary anand dark tea colored urine. RN reported that urine was clear. placed bed alarm on pt for safety. call light in reach.
[2020-05-07] MEDS: Menthol/Lanolin/Calamine/Znox 113 GM Tube 1 APPLIC TOPICAL (17:02)
[2020-05-07] MEDS: levETIRAcetam 250 MG Tablet PO (17:02)
[2020-05-07] MEDS: Midodrine HCl 5 MG Tablet 10 MG PO (17:02)
[2020-05-07] MEDS: Tamsulosin HCl 0.4 MG Capsule PO (17:02)
[2020-05-07] MEDS: Amiodarone 200 MG Tablet PO (17:02)
[2020-05-07] MEDS: Latanoprost 0.005% 1 Bottle 1 DRP EACH EYE (21:09)
[2020-05-07] MEDS: Mirtazapine 15 MG Tablet 7.5 MG PO (21:11)
[2020-05-07] MEDS: Atorvastatin Calcium 40 MG Tablet PO (21:12)
[2020-05-08 03:33] VITALS: BP 105/69; PULSE 66; RESP 18; TEMP 36.6; O2SAT 92
[2020-05-08] MEDS: Menthol/Lanolin/Calamine/Znox 113 GM Tube 1 APPLIC TOPICAL ×2 (05:10→18:09)
[2020-05-08] MEDS: Midodrine HCl 5 MG Tablet 10 MG PO ×3 (05:11→18:07)
[2020-05-08 05:13] VITALS: BP 105/81; PULSE 61
[2020-05-08] MEDS: Digoxin 125 MCG Tablet PO (05:13)
[2020-05-08] MEDS: levETIRAcetam 250 MG Tablet PO ×2 (05:14→18:07)
[2020-05-08] MEDS: Levothyroxine 75 MCG Tablet PO (05:14)
[2020-05-08] MEDS: Amiodarone 200 MG Tablet PO ×2 (05:14→18:06)
[2020-05-08] MEDS: Fludrocortisone Acetate 0.1 MG Tablet 0.3 MG PO (08:16)
[2020-05-08 11:26] VITALS: BP 131/73; PULSE 68
[2020-05-08] MEDS: 0.9% Saline Lock 10 ML Syringe IV (11:42)
[2020-05-08 11:49] VITALS: PULSE 71; RESP 16; O2SAT 97
[2020-05-08 14:04] VITALS: BP 110/66; PULSE 63; RESP 14; TEMP 36.6; O2SAT 100
[2020-05-08] MEDS: Tamsulosin HCl 0.4 MG Capsule PO (18:06)
[2020-05-08 18:28] LABS: Mucous, Urine 0 SEEN /hpf (<or=2+)
[2020-05-08 18:32] LABS: Color, Urine Brown (Yellow); Glucose, Dipstick Normal (Normal); Ketone-Dipstick 5 mg/dl (Negative); Leukocyte Esterase-Dipstick 100 /ul (Negative); Nitrite-Dipstick Negative (Negative); Occult Blood-Urine 250 /ul (Negative); Protein-Dipstick 100 mg/dl (Negative); Urine Clarity Cloudy (Clear); Urine Urobilinogen 4 mg/dl (Normal)
[2020-05-08 18:36] LABS: Urine Bilirubin Dipstick 1 mg/dL (Negative)
[2020-05-08 18:41] LABS: Bacteria 1+ /hpf (None Seen); Red Blood Cells-Urine > 100 SEEN /hpf (0-5); Squamous Epithelial Cells - UA 0-5 SEEN /hpf (0-5); White Blood Cells 10-25 SEEN /hpf (0-5)
--- NOTE | 2020-05-08 19:04 | NURSING ---
Addendum entered by Rossana Tinoco 05/08/20 19:05: Dr Gonzalez notified, new order to send urine Original Note: pt with increased confusion, hematuria continues, low urinary output 350cc in 12 hrs. pt resting in bed, call light in reach. pt did attempt to get OOB on own and staff did hear pt yelling out. entered room, pt asking to bed placed in bed, explained to pt that he was in bed. Staff assisted pt to get legs back into bed.
[2020-05-08] MEDS: Ciprofloxacin 250 MG Tablet PO (20:09)
[2020-05-08] MEDS: Mirtazapine 15 MG Tablet 7.5 MG PO (20:10)
[2020-05-08] MEDS: Atorvastatin Calcium 40 MG Tablet PO (20:10)
[2020-05-08] MEDS: Latanoprost 0.005% 1 Bottle 1 DRP EACH EYE (20:11)
[2020-05-08] MEDS: LORazepam 2 MG/ML Syringe 1 MG IM (22:43)
--- NOTE | 2020-05-08 22:47 | NURSING ---
Pt very agitated, attempting to get out of bed unassisted, pulling at fc. pulling call cord out of socket, wanting to call police, calling staff names, striking out at staff with feet and hands, hit this nurse with feet , unable to calm pt,pt refused fluid or food, attempted to re position pt in bed, attempted to hit staff again, unable to re orient, tc to dr and order for ativan state times 1 dose, see mar
--- NOTE | 2020-05-09 00:45 | NURSING ---
lying quietly on bed with eyes closed, pulling at cath, placed sheet over pt and hob put down, pt cont to have eyes closed
[2020-05-09 04:13] VITALS: BP 124/69; PULSE 67; RESP 17; TEMP 36.6; O2SAT 98
[2020-05-09] MEDS: Menthol/Lanolin/Calamine/Znox 113 GM Tube 1 APPLIC TOPICAL (06:33)
--- NOTE | 2020-05-09 06:57 | NURSING ---
Awake ,lying in bed, face flushed, temp 97 temporal, refusing to take any meds this am , states get the hell out of here i dont trust you, and i am not taking them,
[2020-05-09 10:00] VITALS: BP 142/87; PULSE 74; PULSE 76; RESP 14; TEMP 36.4; O2SAT 98
--- NOTE | 2020-05-09 10:40 | CASEMGMT ---
Addendum entered by Cheri Trivedi 05/09/20 12:16: Spoke with [facility] whom believe pt is eligible for [facility]. Dtr agreeable to [facility]. Peer to Peer completed and pt accepted to [facility]. Scheduled cot transport with Physician's for 2 pm. IDT notified. Dtr notified. Plan: DC to [facility] 05/09 Original Note: Social Work Physician reported pt is entering stages of actively dying. Pt is very agitated and restless. Physician would like pt home with hospice this date so he can be with family vs a SNF. Contacted dtr with above information. Dtr very emotional - provided support. Dtr to contact son. All three live together. Explained SW to complete all DC plans and dtr does not need to do anything. She will be home all day. Dtr agreeable to home with hospice plan. Referral made to [facility]. Will continue to follow. Cheri Trivedi, EDWIN COURTNEYW
[2020-05-09 13:54] VITALS: BP 142/87; PULSE 74; RESP 14; TEMP 36.4; O2SAT 98
--- NOTE | 2020-05-09 14:54 | NURSING ---
Report called to Tracy with [facility]
== END 2020-05-09 15:35 | disposition hospice, inpatient (51) | DRG 312 ==
PROVIDERS: Admitting Provider Family Medicine Geriatric Medicine; PCP Family Medicine Geriatric Medicine; Visit Provider Family Medicine Geriatric Medicine
DX: I95.1 Orthostatic hypotension (principal); I48.11 Longstanding persistent atrial fibrillation; I42.0 Dilated cardiomyopathy; S01.01XD Laceration without foreign body of scalp, subsequent encounter; W19.XXXD Unspecified fall, subsequent encounter; G20 Parkinson's disease; I25.10 Atherosclerotic heart disease of native coronary artery without angina pectoris; I10 Essential (primary) hypertension; E03.9 Hypothyroidism, unspecified; G40.909 Epilepsy, unspecified, not intractable, without status epilepticus; E78.5 Hyperlipidemia, unspecified; Z95.0 Presence of cardiac pacemaker; M19.90 Unspecified osteoarthritis, unspecified site; E87.6 Hypokalemia; N40.1 Benign prostatic hyperplasia with lower urinary tract symptoms; R33.8 Other retention of urine; Z87.891 Personal history of nicotine dependence
CPT/HCPCS: 36415; 80048; 81001; 85025; 87077; 87086; 87088; 87186; 87635; 92507; 92523; 94799; 97110; 97116; 97162; 97165; 97530; 97535; 97802; J7030; A4216; U0003

== ENCOUNTER 2020-04-18 11:52 | Observation (INO) | payer MEDICARE, OTHER, SELFPAY ==
[2020-04-08 16:36] VITALS: BMI 22.3
[2020-04-18] VITALS (7 sets, daily range): BP systolic 130–148; BP diastolic 83–99; PULSE 60–79; RESP 16–18; TEMP 36.4–36.9; O2SAT 96–99; BMI 23.1; BMI 22.1
--- NOTE | 2020-04-18 12:03 | CT_ITS ---
STUDY: CT BRAIN WITHOUT CONTRAST REASON FOR EXAM: Male, 84 years old. Syncope, dizziness. Hx brain bleed with surgery, hypertension. RADIATION DOSAGE (If Supplied By Facility): CTDIvol = ( 44.99 ) mGy, DLP = ( 863.60 ) mGycm TECHNIQUE: Transaxial CT imaging of the brain was performed without administration of intravenous contrast material. Individualized dose optimization techniques were used for this CT. COMPARISON: Comparison is made with prior study dated 04/04/2020. FINDINGS: Normal soft tissue structures. Prior right frontoparietal craniotomy. There is mild cerebral atrophy with widening of the extra-axial spaces and ventricular dilatation. There are areas of decreased attenuation within the white matter tracts of the supratentorial brain, consistent with microvascular disease changes. There are small punctate calcifications of the basal ganglia which are seen in the aging brain as a normal variant. Normal brainstem. There is mild cerebellar atrophy. There is a 3 cm x 1.7 cm CSF collection along the right cerebellar hemisphere. This may represent a small arachnoid cyst. There is no intracranial hemorrhage. There are no findings of an acute ischemic infarction. Normal visualized paranasal sinuses. CT/Brain/Head without Contrast IMPRESSION: Chronic involutional changes of the brain. Stable examination. Electronically Signed: Allan Cortez, at 13:15 EDT , Service support ,
--- NOTE | 2020-04-18 12:17 | EKG12_ITS ---
Test Reason : Blood Pressure : / mmHG Vent. Rate : 063 BPM Atrial Rate : 047 BPM P-R Int : 000 ms QRS Dur : 094 ms QT Int : 414 ms P-R-T Axes : 000 024 266 degrees QTc Int : 423 ms Atrial fibrillation with frequent ventricular-paced complexes ST & T wave abnormality, consider inferior ischemia ST & T wave abnormality, consider anterolateral ischemia Abnormal ECG Confirmed by BERONICA ALVARADO, MAXWELL ([id number]), art editor CATHERINE MATA ([id number]) on 04/21/2020 11:02:40 AM Referred By: JACQUELINE Confirmed By:MAXWELL LOCO MD
--- NOTE | 2020-04-18 12:28 | ED.VISSUMM ---
- ER Visit Summary Date of Service: 04/18/20 Chief Complaint: Near syncope History of Present Illness: The patient is a 84 M presenting to the ED for near syncope. Patient is currently in the TCU for similar symptoms and orthostatic hypotension. He states that he was admitted to the TCU after syncopal episode. He states he improved but over the past 2 days he has worsened. He fell 2 weeks ago and hit his head. He denies having a CT scan at that time. He was sent to the ED for CT scan of his head. Patient has history of 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. He is on Eliquis. He denies chest pain or shortness of breath. Denies other complaints. Physical Examination: Vitals are stable. Patient is afebrile. Alert no acute distress. HEENT exam is unremarkable. Neck is supple. Lungs are clear and equal bilaterally. Heart is irregularly irregular Abdomen is soft nontender nondistended. Extremities are unremarkable. Skin is warm and dry. No focal neurologic deficit. Remainder of exam is unremarkable. Emergency Department Course and Treatment: EKG shows A. fib with inferior lateral T wave inversion which is changed from previous. CT head shows chronic involutional changes of the brain. Stable examination. CBC, chemistries unremarkable other than creatinine 1.41. Digoxin level 1.29. Troponin is negative. Due to EKG changes, discussed with the hospitalist for observation. Disposition: Observation Impression: Syncope This note was generated with [employer] ([employer] dictation software. It may contain incorrect words, spelling, and punctuation that were not noted in review of the chart prior to signing ED Disposition - Plan for ED Patient: Referrals: Dariusz Gonzalez Chi, MD [Primary Care Provider] -
[2020-04-18 12:39] LABS: Absolute Lymphocyte Count 1.51 X10^3/uL (0.83-4.51); Absolute Neutrophil Count 6.8 X10^3/uL (2.0-7.7); Basophil# 0.07 X10^3/uL; Basophil% 0.8 % (0-1); Eosinophil# 0.21 X10^3/uL; Eosinophils% 2.3 % (0-5); Hemoglobin 16.2 g/dL (13.0-16.5); Lymphocyte # 1.51 X10^3/ul (4.0); Lymphocyte % 16.5 % (19-41); Mean Corp Hgb Conc 33.8 g/dL (32-36); Mean Corpuscular Hgb 30.5 pg (27.0-32.0); Mean Corpuscular Volume 90.2 fL (80-94); Mean Platelet Vol. 10.1 fl (6.2-12.0); Monocyte# 0.52 X10^3/uL; Monocyte% 5.7 % (0-10); NRBC Flagged by Analyzer 0 % (0-5); Neutrophil # 6.77 X10^3/uL (2.7-7.7); Platelet Count 297 K/mm3 (150-450); RBC Distribution Width SD 46.5 fl (35.1-43.9); Red Blood Count 5.32 M/mm3 (4.6-6.2); White Blood Count 9.1 K/mm3 (4.4-11.0)
[2020-04-18 13:28] LABS: Digoxin Level 1.29 ng/mL (0.80-2.00)
[2020-04-18 13:32] LABS: Anion Gap 5 (5-15); BUN 18 mg/dL (7-18); BUN/Creat Ratio 12.8 RATIO (10-20); Calcium,Total 8.6 mg/dL (8.5-10.1); Chloride 108 mmol/L (98-107); Creatinine, Serum 1.41 mg/dL (0.70-1.30); EST Glomerular Filtration Rate 51 mL/min (>60); Est Glom Filt Rate - Afr Amer 62 mL/min (>60); Estimated Creatinine Clearance 45.84 ml/min; Glucose 125 mg/dL (74-106); Sodium Level 141 mmol/L (136-145)
--- NOTE | 2020-04-18 14:22 | PCM.HP.STD ---
Problem List (1) Abnormal EKG Status: Acute (2) Syncope and collapse Status: Chronic (3) Atrial fibrillation Status: Chronic Qualifiers: (4) Orthostatic hypotension Status: Chronic (5) Occipital scalp laceration Status: Resolved (6) Scalp laceration Status: Resolved (7) Debility Status: Chronic (8) Syncope Status: Chronic (9) Parkinson's plus syndrome Status: Chronic (10) Coronary artery disease Status: Chronic (11) Hypertension Status: Chronic (12) Glaucoma Status: Chronic (13) Hypothyroidism Status: Chronic (14) Hypokalemia Status: Chronic (15) Seizure disorder Status: Chronic (16) BPH (benign prostatic hyperplasia) Status: Chronic (17) 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: 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 (18) TIA (transient ischemic attack) Status: Chronic (19) Chronic a-fib Status: Chronic (20) Ventricular tachycardia Status: Chronic (21) Cardiomyopathy, dilated, nonischemic Status: Chronic (22) Atherosclerotic heart disease of [place] coronary artery without angina pectoris Status: Chronic Qualifiers: Comment: DOD-KMH-Ehiq LAD 09/21/2004 (23) History of coronary artery stent placement Status: Chronic Comment: DEC-PVK-Hhlx LAD 09/21/2004 (24) Longstanding persistent atrial fibrillation Status: Chronic (25) Presence of permanent cardiac pacemaker Status: Chronic Comment: Permanent Pacemaker insertion, single chamber 10/17/15, [employer] (26) Essential (primary) hypertension Status: Chronic (27) Hyperlipidemia Status: Chronic Qualifiers: (28) Bundle branch block, right Status: Chronic History of Present Illness Date of Admission: 04/18/20 Chief Complaint: Dizziness The patient is a 84 year old M with a known history of orthostatic hypotension, has been in the transitional care unit [since 821. Was feeling dizzy upon standing today. Sent to the emergency room where they scan his head which showed chronic changes. Patient was not having any chest complaints but an EKG was performed and showed ST segment depressions in inferior and lateral leads which were not present in February. The hospital service was contacted for further evaluation of these EKG changes. For the patient's dizziness, states that he was doing well up until the past couple days where he has been more dizzy upon standing though there has been no falls nor any loss of consciousness.] Past Medical History Past Medical History (Chronic Problems): Chronic Problems (Last Reviewed 04/04/20 @ 11:[address] 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 term care administrator current use of anticoagulant (Chronic) TIA (transient ischemic attack) (Chronic) Chronic a-fib (Chronic) Ventricular tachycardia (Chronic) Cardiomyopathy, dilated, nonischemic (Chronic) Atherosclerotic heart disease of [place] coronary artery without angina pectoris (Chronic) VEJ-XQU-Oiod LAD 09/21/2004 History of coronary artery stent placement (Chronic 09/21/04) TOF-OWD-Wxbz LAD 09/21/2004 Longstanding persistent atrial fibrillation (Chronic) 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) Permanent Pacemaker insertion, single chamber 10/17/15, [employer] Essential (primary) hypertension (Chronic) Hyperlipidemia (Chronic) Bundle branch block, right (Chronic) Medical History: Medical History (Last Reviewed 04/18/20 @ 14:[address] Russel Byrne, DO) Cardiomyopathy, dilated, nonischemic (Chronic) I42.0 Atherosclerotic heart disease of [place] coronary artery without angina pectoris (Chronic) I25.10 VEU-NOH-Sdjp LAD 09/21/2004 Longstanding persistent atrial fibrillation (Chronic) I48.11 Essential (primary) hypertension (Chronic) I10 Hyperlipidemia (Chronic) E78.5 Bundle branch block, right (Chronic) I45.10 Glaucoma H40.9 History of 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 Onset Date: 09/13/08 Z86.79 09/13/2008 Hypothyroidism E03.9 Osteoarthritis M19.90 Lower GI bleed K92.2 Allergies hydrochlorothiazide Adverse Reaction (Intermediate, Verified 04/18/20 11:56) syncope Home Medications: Ambulatory Orders Medication Instructions Recorded Latanoprost 0.005% [Xalatan 1 drp EACH EYE QHS 07/31/18 Opthalmic] Acetaminophen [Tylenol] 500 mg PO DAILY PRN PRN 03/14/20 Apixaban [Eliquis] 2.5 mg PO BID 03/14/20 Atorvastatin Calcium [Lipitor] 40 mg PO DAILY@2200 03/14/20 Levothyroxine Sodium [Synthroid] 75 mcg PO DAILY 03/14/20 Potassium Chloride [K-Dur] 40 meq PO DAILYCM 03/14/20 midodrine 10 mg tablet 10 mg PO TID 04/01/20 Amiodarone HCl [Cordarone] 200 mg PO BID 04/08/20 Digoxin [Lanoxin] 125 mcg PO DAILY 04/08/20 Fludrocortisone Acetate [Florinef] 0.2 mg PO DAILY@0800 04/08/20 Menthol/Lanolin/Calamine/Znox 1 applic TOPICAL BID 04/18/20 [Calmoseptine Ointment] Mineral Oil/Petrolatum,White 1 applic TOPICAL BID PRN PRN 04/18/20 [Eucerin] Polyethylene Glycol 3350 [Miralax] 17 gm PO DAILY 04/18/20 levETIRAcetam tablet [Keppra 250 mg PO BID 04/18/20 tablet] Surgical History: Surgical History (Last Reviewed 04/18/20 @ 14:[address] Russel Byrne DO) History of coronary artery stent placement (Chronic) Onset Date: 09/21/04 Z95.5 DFP-LEX-Uoyi LAD 09/21/2004 Presence of permanent cardiac pacemaker (Chronic) Onset Date: 10/17/15 Z95.0 Permanent Pacemaker insertion, single chamber 10/17/15, [employer] History of bilateral cataract extraction Z98.41, Z98.42 History of bilateral knee replacement Z96.653 06/22/2014 History of craniotomy Onset Date: 09/13/08 Z98.890 09/13/08 for 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 History of radiofrequency ablation procedure for cardiac arrhythmia Z98.890 Surgical History: angioplasty - Cardiac stent., cataract, herniorrhaphy, pacemaker implantation, total knee arthroplasty, - - Neurosurgery for traumatic intracranial bleed 10 years ago or more Psychiatric History: No pertinent psych hx Smoking Status: Unknown if ever smoked - *Family History Maternal Family History: Family History (Last Reviewed 04/18/20 @ 14:[address] Russel Byrne DO) Father CAD (coronary artery disease) Myocardial infarction Sudden cardiac Mother No problems noted. Uncle CAD (coronary artery disease) Sudden cardiac Myocardial infarction Other Heart disease History Items: - - Denies any market maternal family history including heart disease, diabetes or cancer. Paternal Family History: Family History (Last Reviewed 04/18/20 @ 14:[address] Russel Byrne DO) Father CAD (coronary artery disease) Myocardial infarction Sudden cardiac Mother No problems noted. Uncle CAD (coronary artery disease) Sudden cardiac Myocardial infarction Other Heart disease History Items: High Cholesterol, Heart Disease, Hypertension, - - father had mi at age 69 Review of Systems Constitutional: Denies: Anorexia, Fever, Night Sweats Eyes: Reports: Blurred vision - When he feels dizzy. Denies: Double vision HEENT: Denies: Head Aches, Sinus Congestion, Sinus Drainage Cardiovascular: Denies: Chest Pain, Palpitations Respiratory: Denies: Cough, Shortness of breath at rest, Sputum production Gastrointestinal: Denies: Abdominal Pain, Nausea, Vomiting Genitourinary: Denies: Dysuria Musculoskeletal: Denies: Joint Pain, Joint Tenderness Skin: Denies: Rash, Wounds Neurological: Denies: Numbness, Tingling, Focal weakness Psychiatric: Denies: Anxiety, Depression Hematologic/ Lymphatic: Denies: Easy Bruising, Easy Bleeding Comment: All review of systems were negative except as mentioned above in the history of present illness and the other review of systems. VTE Information - Inpt Only VTE Present on Admission: No VTE Mechan Device Prophylaxis: None VTE Pharm Prophylaxis ordered?: No Reason prophylaxis not ordered:: Medical Contraindication Patient Problems: Active and Suspected Problems (Last Reviewed 04/04/20 @ 11:[address] Russel Byrne DO) Abnormal EKG (Acute) - Physical Exam Vitals/I&O's: Vital Signs Temp Pulse Resp BP Pulse Ox 36.4 C L 79 16 130/87 H 99 04/18/20 11:53 04/18/20 12:24 04/18/20 12:24 04/18/20 12:24 04/18/20 12:24 Oxygen Delivery Method Room Air Weight: 81.647 kg Body Mass Index (BMI) 23.1 Finger Stick Blood Glucose 115 General: Alert, Cooperative, No apparent distress HEENT: Atraumatic, PERRLA, EOMI, Normocephalic Oral: Moist Mucosa, No Gingival or Mucosal Lesions/ Ulcerations Neck: No Nodes, Thyroid Normal Size and Texture Lungs: Clear to auscultation, Normal air movement, No rhonchi, No wheeze, No rales Cardiovascular: Regular rate, Regular Rhythm, Normal S1, Normal S2, No murmurs Abdomen: Bowel Sounds Present, Soft, Non Tender, Non-Distended, No Hepato-splenomegaly Extremities: No edema, No Calf Tenderness Skin: No rashes, No breakdown Musculoskeletal: No Tenderness to Palpation of Joints or Extremities, Muscle Wasting Neurological: Cranial nerves II-XII grossly intact, - - No clonus Psych/Mental Status: Appropriate, Flat Affect Laboratory Results 04/18/20 12:10: WBC 9.1, RBC 5.32, Hgb 16.2, Hct 48.0, MCV 90.2, MCH 30.5, MCHC 33.8, RDW Std Deviation 46.5 H, RDW Coeff of Carolyn 14.0, Plt Count 297, MPV 10.1, Immature Gran % (Auto) 0.700, Neut % (Auto) 74.0 H, Lymph % (Auto) 16.5 L, Ramsey % (Auto) 5.7, Eos % (Auto) 2.3, Baso % (Auto) 0.8, Absolute Neuts (auto) 6.8, Absolute Lymphs (auto) 1.51, Nucleated RBC % 0 04/18/20 12:10: Sodium 141, Potassium 4.0, Chloride 108 H, Carbon Dioxide 28.0, Anion Gap 5, BUN 18, Creatinine 1.41 H, Estim Creat Clear Calc 45.84, Est GFR (MDRD) Af Amer 62, Est GFR (MDRD) Non-Af 51 L, BUN/Creatinine Ratio 12.8, Glucose 125 H, Calcium 8.6, Troponin I < 0.015 04/18/20 12:29: Digoxin 1.29 Clinical Impression(s) from Imaging Studies Brain CT 04/18/20 12:03 IMPRESSION: Chronic involutional changes of the brain. Stable examination. Electronically Signed: Allan Cortez, at 13:15 EDT , Service support , EKG reviewed and showed normal sinus rhythm with PVCs. Show ST depressions in inferior as well as lateral leads that were not present back in February. Assessment/Plan All Active Problems (Last Reviewed 04/04/20 @ 11:[address] Russel Byrne, DO) Occipital scalp laceration (Resolved) Scalp laceration (Resolved) Abnormal EKG (Acute) 1. Abnormal EKG: Changed from April 01 as well as in February. Patient asymptomatic otherwise. Patient had echocardiogram February of this year that showed an EF of 55%. Patient will undergo a dobutamine stress echocardiogram for further evaluation. We will additionally check troponins. 2. Orthostatic hypotension: Chronic. Degree of drop still present as it dropped, earlier today, from 128/90 lying to 96/53 standing today. Patient is on fludrocortisone 0.2 mg daily plus midodrine 10 mg 3 times daily. Continue with RADHA hose while up. [place] salt diet. 3. 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 Still would recommend patient follow-up with a movement disorder specialist upon discharge. 4. Syncope: Patient has had an extensive work-up. Patient has had previous abnormal EEG which is why he is on levetiracetam. That was recently decreased to 200 given somnolence. Patient seems to be tolerating that change well. Additionally follow-up with neurology may help further differentiate if he would need to continue to be on levetiracetam him or not as it was never conclusive that the patient was actually having seizures. 5. Atrial fibrillation: Continue with apixaban. On amiodarone and digoxin. 6. VTE prophylaxis: Low risk as patient is already anticoagulated and observation status. Discussed with the patient's daughter Mar. OBSV E&M: [id number] Initial observation care L3
[2020-04-18] MEDS: Amiodarone 200 MG Tablet PO (20:46)
[2020-04-18] MEDS: levETIRAcetam 250 MG Tablet PO (20:46)
[2020-04-18] MEDS: APIXABAN 2.5 MG TABLET PO (20:46)
[2020-04-18] MEDS: Atorvastatin Calcium 40 MG Tablet PO (20:46)
[2020-04-18] MEDS: Midodrine HCl 5 MG Tablet 10 MG PO (20:46)
[2020-04-18] MEDS: 0.9% Saline Lock 10 ML Syringe IV (20:53)
[2020-04-18] MEDS: Latanoprost 0.005% 1 Bottle 1 DRP EACH EYE (20:57)
[2020-04-19] VITALS (7 sets, daily range): BP systolic 98–147; BP diastolic 56–105; PULSE 63–76; RESP 18; TEMP 36.6–36.8; O2SAT 97–99
[2020-04-19] MEDS: Midodrine HCl 5 MG Tablet 10 MG PO ×2 (05:29→14:37)
[2020-04-19] MEDS: Levothyroxine 75 MCG Tablet PO (05:29)
--- NOTE | 2020-04-19 05:55 | EKG12_ITS ---
Test Reason : AM EKG Blood Pressure : / mmHG Vent. Rate : 070 BPM Atrial Rate : 104 BPM P-R Int : 000 ms QRS Dur : 096 ms QT Int : 396 ms P-R-T Axes : 000 031 266 degrees QTc Int : 427 ms Atrial fibrillation with occasional ventricular-paced complexes Non-specific ST & T wave changes Abnormal ECG When compared with ECG of 18-APR-2020 16:20, MANUAL COMPARISON REQUIRED, DATA IS UNCONFIRMED Confirmed by VALENTE ALVARADO, VELMA ([id number]), fashion editor CATHERINE MATA ([id number]) on 04/29/2020 1:32:01 PM Referred By: ANDI Confirmed By:BOUBACAR VICTOR MD
--- NOTE | 2020-04-19 09:39 | STRESSREP_ITS ---
Stress Test Report Date: 04-19-2020 Procedure: Pharmacologic stress nuclear imaging study Indications: Abnormal ECG; CAD; PCI; cardiomyopathy; atrial fibrillation; permanent pacemaker placement; Parkinson's disorder; orthostasis; seizure disorder Consent: Per the patient Procedure: The patient underwent pharmacologic (Regadenoson) evaluation with a peak heart rate of 94 beats per minute (68 %predicted maximal heart rate) and a peak blood pressure of 142/90 mmHg. The baseline ECG demonstrated atrial fibrillation; low voltage QRS; nonspecific ST/T wave abnormality; intermittent electronic ventricular paced beat. The peak pharmacologic ECG demonstrated no obvious ECG changes. There was the appearance of a ventricular couplet during recovery. There was no complaint of chest discomfort during pharmacologic infusion or recovery. The examination was discontinued secondary to completion of protocol. Impression: 1. Pharmacologic (Regadenoson) evaluation 2. Peak pharmacologic ECG with no obvious ECG changes. 3. There was the appearance of a ventricular couplet during recovery. 4. Nuclear images pending Myocardial perfusion imaging study: Technique: The patient was injected with 11.8 millicuries of technetium 99m Cardiolite and subsequently rest SPECT Cardiolite nuclear imaging was obtained in the horizontal long, vertical long, and short axis views. The patient underwent pharmacologic (Regadenoson) evaluation with a peak heart rate of 94 beats per minute (68 % percent predicted maximal heart rate) and a peak blood pressure of 142/90 mmHg. The patient was injected with 34.1 millicuries of technetium 99m Cardiolite and subsequently stress SPECT Cardiolite nuclear imaging was obtained in the horizontal long, vertical long, and short axis views. A gated Cardiolite study at peak stress was obtained. Interpretation: Rest and stress SPECT Cardiolite nuclear imaging status post realignment, normalization, and attenuation correction demonstrate at rest the appearance of subtle diminished tracer uptake in portions of the distal anterior/anteroapical segments which appears to improve/normalize following stress. There is end systolic thickening and brightening. The gated Cardiolite study demonstrates myocardial thickening and inward wall motion. The reported LVEF is 57 %. Impression: 1. Rest and stress SPECT her nuclear imaging demonstrate myocardial perfusion changes at rest which appear to improve following stress appearing compatible shifting soft tissue attenuation/artifact with no myocardial perfusion changes considered diagnostic for associated stress-induced myocardial ischemia. 2. The gated Cardiolite study reports an LVEF of 57 %. This note was generated with [employer] software. It may contain incorrect words, spelling, and punctuation that were not noted in checking the note before signing.
[2020-04-19] MEDS: Fludrocortisone Acetate 0.1 MG Tablet 0.2 MG PO (11:19)
[2020-04-19] MEDS: Digoxin 125 MCG Tablet PO (11:20)
[2020-04-19] MEDS: Amiodarone 200 MG Tablet PO (11:20)
[2020-04-19] MEDS: levETIRAcetam 250 MG Tablet PO (11:20)
[2020-04-19] MEDS: APIXABAN 2.5 MG TABLET PO (12:13)
--- NOTE | 2020-04-19 13:10 | TREXTCA.CO_ITS ---
- Diet 04/19/20 12:13 Diet: Regular - General Is pt able to select menu?: Yes Diet Comments: provide salt packets with meals - Routine Orders/Code Status Enema Type: Fleetz Enema Frequency: Daily PRN Suppository Type: Dulcolax 10mg Suppository Frequency: Daily PRN Code [facility] - Suggestions for Active Care Change Position every (hours): 2 Times a day to sit in chair: 3 - Therapies Physical Therapy: Eval and Treat Occupational Therapy: Eval and Treat - Problem/Diagnosis (1) Atrial fibrillation Status: Chronic Current Visit: No (2) Orthostatic hypotension Status: Chronic Current Visit: No (3) Debility Status: Chronic Current Visit: No (4) Syncope Status: Chronic Comment: dizziness/pre-syncope Current Visit: No (5) Parkinson's plus syndrome Status: Chronic Current Visit: No (6) Coronary artery disease Status: Chronic Current Visit: No (7) Hypertension Status: Chronic Current Visit: No (8) Glaucoma Status: Chronic Current Visit: No (9) Hypothyroidism Status: Chronic Current Visit: No (10) Hypokalemia Status: Chronic Current Visit: No (11) Seizure disorder Status: Chronic Current Visit: No (12) BPH (benign prostatic hyperplasia) Status: Chronic Current Visit: No (13) Abnormal EKG Status: Acute Current Visit: Yes (14) residential current use of anticoagulant Status: Chronic Current Visit: No (15) TIA (transient ischemic attack) Status: Chronic Current Visit: No (16) Chronic a-fib Status: Chronic Current Visit: No (17) Ventricular tachycardia Status: Chronic Current Visit: No (18) Cardiomyopathy, dilated, nonischemic Status: Chronic Current Visit: No (19) Atherosclerotic heart disease of [place] coronary artery without angina pectoris Status: Chronic Comment: ZPB-ONF-Imwr LAD 09/21/2004 Current Visit: No (20) History of coronary artery stent placement Status: Chronic Comment: UGI-CJJ-Oyce LAD 09/21/2004 Current Visit: No (21) Longstanding persistent atrial fibrillation Status: Chronic Current Visit: No (22) Presence of permanent cardiac pacemaker Status: Chronic Comment: Permanent Pacemaker insertion, single chamber 10/17/15, [employer] Current Visit: No (23) Essential (primary) hypertension Status: Chronic Current Visit: No (24) Hyperlipidemia Status: Chronic Current Visit: No (25) Bundle branch block, right Status: Chronic Current Visit: No - Allergies/Procedures Done in Hospital Allergies/Adverse Reactions: Allergies hydrochlorothiazide Adverse Reaction (Intermediate, Verified 04/18/20 11:56) syncope Procedures: Stress Test - Type of Care/Length of Stay Estimated LOS: Convalescent Care Less Than 30 days Type of Care Needed: Skilled Rehab Potential: Fair Prognosis: Fair - Additional Orders/Day of Discharge H&P will serve as current which was dated: 04/18/20 Day of Discharge: 04/19/20 - Dietary and Speech Recommendations Dietitian Recommendations/Changes: Will continue diet as ordered to establish PO at meals and help optimize intake especially given pt's dislike of hospital food & gradual wt loss calculated. Continue ensure enlive w/ medpass as intake established. - Follow Up Care Primary Care Physician: Dariusz Gonzalez Chi, MD [Primary Care Provider] - Please follow up with your Primary Care Physician in: 1 Week Please Follow Up With: Saloni Bowie PA When: As scheduled 05/12/2020
--- NOTE | 2020-04-19 13:20 | DS.PCM_ITS ---
<Deanna Daniel - Last Filed: 04/19/20 13:36> Discharge Date and Diagnosis Date of Admission: 04/18/20 Date of Discharge: 04/19/20 - Primary Discharge Diagnosis Acute Problems: Active Problems (Last Reviewed 04/18/20 @ 14:[address] Russel Byrne, ) 1. Abnormal EKG- ACS ruled out 2. Chronic orthostatic hypotension, syncope 3. Parkinson's plus syndrome 4. TIA 5. History of V. tach status post pacemaker placement 6. Seizure disorder 7. Chronic atrial fibrillation 8. CAD 9. Hypertension 10. Hyperlipidemia 11. Hypothyroidism - Secondary Discharge Diagnosis Chronic Problems: Chronic Problems (Last Reviewed 04/18/20 @ 14:[address] Russel Byrne, ) Atrial fibrillation (Chronic) Orthostatic hypotension (Chronic) Debility (Chronic) Syncope (Chronic) dizziness/pre-syncope Parkinson's plus syndrome (Chronic) Coronary artery disease (Chronic) Hypertension (Chronic) Glaucoma (Chronic) Hypothyroidism (Chronic) Hypokalemia (Chronic) Seizure disorder (Chronic) BPH (benign prostatic hyperplasia) (Chronic) alf current use of anticoagulant (Chronic) TIA (transient ischemic attack) (Chronic) Chronic a-fib (Chronic) Ventricular tachycardia (Chronic) Cardiomyopathy, dilated, nonischemic (Chronic) Atherosclerotic heart disease of [place] coronary artery without angina pectoris (Chronic) [id number] LAD 09/21/2004 History of coronary artery stent placement (Chronic 09/21/04) [id number] LAD 09/21/2004 Longstanding persistent atrial fibrillation (Chronic) 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 1. Abnormal EKG- ACS ruled out. Troponin negative. Patient underwent stress test which was negative for ischemia. LVEF 57%. Follow-up with cardiology as scheduled 05/12/2020. 2. Chronic orthostatic hypotension, syncope-continue mitali Thorpe Florinef. 3. Parkinson's plus syndrome-recommend follow-up with neurology/movement disorder specialist-referral by PCP. 4. TIA-continue Eliquis, statin. 5. History of V. tach status post pacemaker placement 6. Seizure disorder-on Keppra. 7. Chronic atrial fibrillation-continue amiodarone, Eliquis. 8. CAD-continue medical management. Stress negative as noted above. 9. Hypertension-stable. 10. Hyperlipidemia-continue statin. 11. Hypothyroidism-continue Synthroid. Patient seen and examined prior to discharge. Physical assessment as noted below. Patient is stable for discharge with follow up recommendations as noted above. This patient was seen by SKYE Molina under the supervision of Dr. Sotelo. - Physical Exam Vitals/I&O's: Vital Signs Temp Pulse Resp BP Pulse Ox 98.3 F 76 18 136/95 H 99 04/19/20 10:02 04/19/20 11:20 04/19/20 10:02 04/19/20 10:02 04/19/20 10:02 Oxygen Delivery Method Room Air Weight: 172 lb 6.424 oz Body Mass Index (BMI) 22.1 Finger Stick Blood Glucose 115 Orthostatic Vital Signs Start: 04/19/20 04:01 Freq: q24h Status: Active Protocol: Activity Type Activity Date Activity User E-Sign Co-Sign Detail Recorded Client Recorded Date Recorded By Document 04/19/20 03:00 [facility] [id number] 04/19/20 04:02 RUIZ 04/19/20 03:00 Orthostatic Vitals Standing -Blood Pressure (90/60-120/80) 98/56 L -Extremity Use Left Arm -Pulse Rate (60-100) 64 Sitting -Blood Pressure (90/60-120/80) 124/84 H -Extremity Use Left Arm -Pulse Rate (60-100) 74 Lying -Blood Pressure (90/60-120/80) 127/90 H -Extremity Use Left Arm -Pulse Rate (60-100) 63 Intake and Output for Last 24 Hours 04/17/20 04/18/20 04/19/20 23:59 23:59 23:59 Intake Total 200 / 200 120 / 120 Output Total 200 / 375 475 / 475 Balance 0 / -175 -355 / -355 General: Alert, Oriented x3, Cooperative HEENT: Atraumatic, PERRLA, EOMI, Normocephalic Neck: Supple, No JVD, Negative Carotid Bruits Lungs: Clear to auscultation, Normal air movement Cardiovascular: - - Atrial fibrillation, rate controlled Abdomen: Bowel Sounds Present, Soft, Non Tender, Non-Distended Extremities: No clubbing, No cyanosis, No edema, Capillary Refill Less than 3 Seconds Skin: No rashes, No breakdown Musculoskeletal: No Tenderness to Palpation of Joints or Extremities Neurological: Cranial nerves II-XII grossly intact, Neuro grossly intact Psych/Mental Status: Normal Affect, Appropriate Laboratory Results 04/18/20 12:10: Sodium 141, Potassium 4.0, Chloride 108 H, Carbon Dioxide 28.0, Anion Gap 5, BUN 18, Creatinine 1.41 H, Estim Creat Clear Calc 45.84, Est GFR (MDRD) Af Amer 62, Est GFR (MDRD) Non-Af 51 L, BUN/Creatinine Ratio 12.8, Glucose 125 H, Calcium 8.6, Troponin I < 0.015 04/18/20 12:29: Digoxin 1.29 04/18/20 15:03: Troponin I < 0.015 04/18/20 17:43: Troponin I < 0.015 Current Medications Acetaminophen (Tylenol) 500 mg PO DAILY PRN PRN PRN Reason: Pain or Fever Amiodarone HCl (Cordarone) 200 mg PO BID [facility] Last Admin: 04/19/20 11:20 Dose: 200 mg Documented by: Apixaban (Eliquis) 2.5 mg PO BID [facility] Last Admin: 04/19/20 12:13 Dose: 2.5 mg Documented by: Atorvastatin Calcium (Lipitor) 40 mg PO DAILY@2200 [facility] Last Admin: 04/18/20 20:46 Dose: 40 mg Documented by: Calamine/Phenol (Calmoseptine Ointment) 1 applic TOPICAL BID [facility]; Protocol Last Admin: 04/19/20 11:24 Dose: Not Given Documented by: Digoxin (Lanoxin) 125 mcg PO DAILY [facility] Last Admin: 04/19/20 11:20 Dose: 125 mcg Documented by: Fludrocortisone Acetate (Florinef) 0.2 mg PO DAILY@0800 [facility] Last Admin: 04/19/20 11:19 Dose: 0.2 mg Documented by: Sodium Chloride () 500 mls @ 15 mls/hr IV PRN PRN PRN Reason: Blood Transfusion Sodium Chloride () 250 mls @ 15 mls/hr IV .[id number] PRN PRN Reason: Saline Flush Sodium Chloride () 250 mls @ 15 mls/hr IV .[id number] PRN PRN Reason: Additional IVPB Infusion Latanoprost (Xalatan Opthalmic) 1 drop EACH EYE QHS [facility] Last Admin: 04/18/20 20:57 Dose: 1 drop Documented by: Levetiracetam (Keppra Tablet) 250 mg PO BID [facility] Last Admin: 04/19/20 11:20 Dose: 250 mg Documented by: Levothyroxine Sodium (Synthroid) 75 mcg PO DAILY@0600 [facility] Last Admin: 04/19/20 05:29 Dose: 75 mcg Documented by: Midodrine (Proamatine) 10 mg PO TID [facility] Last Admin: 04/19/20 05:29 Dose: 10 mg Documented by: Multi-Ingredient Cream (Eucerin) 1 applic TOPICAL BID PRN PRN; Protocol PRN Reason: skin Nutritional Formula (Lactose Free) (Ensure Enlive) 120 ml PO 4X/DAY [facility] Last Admin: 04/19/20 11:17 Dose: Not Given Documented by: Polyethylene Glycol (Miralax) 17 gm PO DAILY [facility] Last Admin: 04/19/20 11:21 Dose: Not Given Documented by: Sodium Chloride () 10 - 40 ml IV UD PRN PRN Reason: SALINE FLUSH Last Admin: 04/18/20 20:53 Dose: 10 ml Documented by: Home Medications: Medications to take at Discharge Latanoprost 0.005% [Xalatan Opthalmic] 1 drp EACH EYE QHS 07/31/18 Acetaminophen [Tylenol] 500 mg PO DAILY PRN PRN 03/14/20 Apixaban [Eliquis] 2.5 mg PO BID 03/14/20 Atorvastatin Calcium [Lipitor] 40 mg PO DAILY@0 03/14/20 Levothyroxine Sodium [Synthroid] 75 mcg PO DAILY 03/14/20 Potassium Chloride [K-Dur] 40 meq PO DAILYCM 03/14/20 midodrine 10 mg tablet 10 mg PO TID 04/01/20 Amiodarone HCl [Cordarone] 200 mg PO BID 08/21/20 Digoxin [Lanoxin] 125 mcg PO DAILY 04/08/20 Fludrocortisone Acetate [Florinef] 0.2 mg PO DAILY@0800 04/08/20 Menthol/Lanolin/Calamine/Znox [Calmoseptine Ointment] 1 applic TOPICAL BID 04/18/20 Mineral Oil/Petrolatum,White [Eucerin] 1 applic TOPICAL BID PRN PRN 04/18/20 Polyethylene Glycol 3350 [Miralax] 17 gm PO DAILY 04/18/20 levETIRAcetam tablet [Keppra tablet] 250 mg PO BID 04/18/20 Primary Care Physician: Dariusz Gonzalez Chi, MD [Primary Care Provider] - Please follow up with your Primary Care Physician in: 1 Week Please Follow Up With: Saloni Bowie PA When: As scheduled 05/12/2020 Disposition: Detention facility Minutes spent on discharge:: 35 Patient Condition:: Stable Medical Necessity - Tobacco Use Smoking Status: Unknown if ever smoked Meaningful Use Info Meaningful Use Diagnoses (Choose all that apply): None applicable <Gene Sotelo - Last Filed: 04/19/20 14:51> Discharge Date and Diagnosis - Secondary Discharge Diagnosis Chronic Problems: Chronic Problems (Last Reviewed 04/18/20 @ 14:[address] Russel Byrne, DO) Atrial fibrillation (Chronic) Orthostatic hypotension (Chronic) Debility (Chronic) Syncope (Chronic) dizziness/pre-syncope Parkinson's plus syndrome (Chronic) Coronary artery disease (Chronic) Hypertension (Chronic) Glaucoma (Chronic) Hypothyroidism (Chronic) Hypokalemia (Chronic) Seizure disorder (Chronic) BPH (benign prostatic hyperplasia) (Chronic) alf current use of anticoagulant (Chronic) TIA (transient ischemic attack) (Chronic) Chronic a-fib (Chronic) Ventricular tachycardia (Chronic) Cardiomyopathy, dilated, nonischemic (Chronic) Atherosclerotic heart disease of [place] coronary artery without angina pectoris (Chronic) [id number] LAD 09/21/2004 History of coronary artery stent placement (Chronic 09/21/04) [id number] LAD 09/21/2004 Longstanding persistent atrial fibrillation (Chronic) 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) Permanent Pacemaker insertion, single chamber 10/17/15, [employer] Essential (primary) hypertension (Chronic) Hyperlipidemia (Chronic) Bundle branch block, right (Chronic) Hospital Course and Treatment Imaging Results: 04/19/20 07:44 Nuclear Stress Test - Chemical [NM] Urgent Summary of Care Provided: The patient is a 84 year old M [] - Physical Exam Vitals/I&O's: Vital Signs Temp Pulse Resp BP Pulse Ox 98.1 F 70 18 147/105 H 98 04/19/20 14:23 04/19/20 14:23 04/19/20 14:23 04/19/20 14:23 04/19/20 14:23 Oxygen Delivery Method Room Air Weight: 172 lb 6.424 oz Body Mass Index (BMI) 22.1 Finger Stick Blood Glucose 115 Orthostatic Vital Signs Start: 04/19/20 04:01 Freq: q24h Status: Active Protocol: Activity Type Activity Date Activity User E-Sign Co-Sign Detail Recorded Client Recorded Date Recorded By Document 04/19/20 03:00 [facility] [id number] 04/19/20 04:02 [facility] 04/19/20 03:00 Orthostatic Vitals Standing -Blood Pressure (90/60-120/80) 98/56 L -Extremity Use Left Arm -Pulse Rate (60-100) 64 Sitting -Blood Pressure (90/60-120/80) 124/84 H -Extremity Use Left Arm -Pulse Rate (60-100) 74 Lying -Blood Pressure (90/60-120/80) 127/90 H -Extremity Use Left Arm -Pulse Rate (60-100) 63 Intake and Output for Last 24 Hours 04/17/20 04/18/20 04/19/20 23:59 23:59 23:59 Intake Total 200 / 200 120 / 120 Output Total 200 / 375 475 / 475 Balance 0 / -175 -355 / -355 Laboratory Results 04/18/20 15:03: Troponin I < 0.015 04/18/20 17:43: Troponin I < 0.015 Current Medications Acetaminophen (Tylenol) 500 mg PO DAILY PRN PRN PRN Reason: Pain or Fever Last Admin: 04/19/20 14:40 Dose: 500 mg Documented by: Amiodarone HCl (Cordarone) 200 mg PO BID [facility] Last Admin: 04/19/20 11:20 Dose: 200 mg Documented by: Apixaban (Eliquis) 2.5 mg PO BID [facility] Last Admin: 04/19/20 12:13 Dose: 2.5 mg Documented by: Atorvastatin Calcium (Lipitor) 40 mg PO DAILY@2200 [facility] Last Admin: 04/18/20 20:46 Dose: 40 mg Documented by: Calamine/Phenol (Calmoseptine Ointment) 1 applic TOPICAL BID [facility]; Protocol Last Admin: 04/19/20 11:24 Dose: Not Given Documented by: Digoxin (Lanoxin) 125 mcg PO DAILY [facility] Last Admin: 04/19/20 11:20 Dose: 125 mcg Documented by: Fludrocortisone Acetate (Florinef) 0.2 mg PO DAILY@0800 [facility] Last Admin: 04/19/20 11:19 Dose: 0.2 mg Documented by: Sodium Chloride () 500 mls @ 15 mls/hr IV PRN PRN PRN Reason: Blood Transfusion Sodium Chloride () 250 mls @ 15 mls/hr IV .[id number] PRN PRN Reason: Saline Flush Sodium Chloride () 250 mls @ 15 mls/hr IV .[id number] PRN PRN Reason: Additional IVPB Infusion Latanoprost (Xalatan Opthalmic) 1 drop EACH EYE QHS [facility] Last Admin: 04/18/20 20:57 Dose: 1 drop Documented by: Levetiracetam (Keppra Tablet) 250 mg PO BID [facility] Last Admin: 04/19/20 11:20 Dose: 250 mg Documented by: Levothyroxine Sodium (Synthroid) 75 mcg PO DAILY@0600 [facility] Last Admin: 04/19/20 05:29 Dose: 75 mcg Documented by: Midodrine (Proamatine) 10 mg PO TID [facility] Last Admin: 04/19/20 14:37 Dose: 10 mg Documented by: Multi-Ingredient Cream (Eucerin) 1 applic TOPICAL BID PRN PRN; Protocol PRN Reason: skin Nutritional Formula (Lactose Free) (Ensure Enlive) 120 ml PO 4X/DAY [facility] Last Admin: 04/19/20 14:36 Dose: Not Given Documented by: Polyethylene Glycol (Miralax) 17 gm PO DAILY [facility] Last Admin: 04/19/20 11:21 Dose: Not Given Documented by: Sodium Chloride () 10 - 40 ml IV UD PRN PRN Reason: SALINE FLUSH Last Admin: 04/18/20 20:53 Dose: 10 ml Documented by: Addendum: Dr. Sotelo I personally examined the patient and reviewed the chart. I agree with the above. 84-year-old male with a known history of orthostatic hypotension with a transitional care unit since April 08, 2020 and he was transferred to the ER because he felt dizzy upon standing. He had orthostatic vital signs which did show a drop in his systolic blood pressure of about 30 mmHg. However this is better than what it had been previously and he had been started on midodrine 3 times daily. He felt much better today prior to discharge and did request to be discharged today back to the transitional care unit. Part of his admission work-up for the syncope included a cardiac stress test secondary to a slight alteration in his EKG with normal troponins. His stress test was unremarkable, and he had had an echo in February 2020 which showed an EF of 55%, and because he felt better he was discharged back to the TCU. I did discuss with him the plan for discharge today and he did express understanding of the risks and benefits of going back to the TCU today. OBSV E&M: [id number] Observation care discharge
--- NOTE | 2020-04-19 14:01 | CASEMGMT ---
Addendum entered by Erinn Solitario 04/19/20 15:09: SW spoke with patient and his daughter and they are both aware he is going back to TCU today. Patient's daughter asked if his quarantine days will start over. PRITI was not able to reach Susi, but did talk with PRITI Alonzo in TCU and as long as patient is back in TCU by 5p he will not start his quarantine days over. PRITI passed along this message to patient and his daughter. Plan: d/c to [facility] Erinn PINEDA Original Note: Patient is from TCU and he will return there at d/c. SW will make sure his daughter is aware he is being discharged back to TCU today. Plan: d/c to [facility] Erinn PINEDA
--- NOTE | 2020-04-19 14:13 | PHA.DC.MR ---
Pharmacy Service has performed discharge medication reconciliation for this patient upon transfer back to TCU The patient's discharge medication list was reviewed for discrepancies and discrepancies were resolved. Home Medications Latanoprost 0.005% [Xalatan Opthalmic] 1 drp EACH EYE QHS 07/31/18 Acetaminophen [Tylenol] 500 mg PO DAILY PRN PRN 03/14/20 Apixaban [Eliquis] 2.5 mg PO BID 03/14/20 Atorvastatin Calcium [Lipitor] 40 mg PO DAILY@2200 03/14/20 Levothyroxine Sodium [Synthroid] 75 mcg PO DAILY 03/14/20 Potassium Chloride [K-Dur] 40 meq PO DAILYCM 03/14/20 midodrine 10 mg tablet 10 mg PO TID 04/01/20 Amiodarone HCl [Cordarone] 200 mg PO BID 04/08/20 Digoxin [Lanoxin] 125 mcg PO DAILY 04/08/20 Fludrocortisone Acetate [Florinef] 0.2 mg PO DAILY@0800 04/08/20 Menthol/Lanolin/Calamine/Znox [Calmoseptine Ointment] 1 applic TOPICAL BID 04/18/20 Mineral Oil/Petrolatum,White [Eucerin] 1 applic TOPICAL BID PRN PRN 04/18/20 Polyethylene Glycol 3350 [Miralax] 17 gm PO DAILY 04/18/20 levETIRAcetam tablet [Keppra tablet] 250 mg PO BID 04/18/20
[2020-04-19] MEDS: Acetaminophen 500 MG Tablet PO (14:40)
--- NOTE | 2020-04-19 15:40 | NURSING ---
report called to TCU
== END 2020-04-19 13:19 | disposition skilled nursing facility (03) ==
LOC: ED 13:06 → PCU 14:33
PROVIDERS: Emergency Provider Emergency Medicine; PCP Family Medicine Geriatric Medicine; Visit Provider Family Medicine
DX: I95.1 Orthostatic hypotension (principal); G20 Parkinson's disease; I25.10 Atherosclerotic heart disease of native coronary artery without angina pectoris; R94.31 Abnormal electrocardiogram [ECG] [EKG]; E78.5 Hyperlipidemia, unspecified; I10 Essential (primary) hypertension; E03.9 Hypothyroidism, unspecified; G40.909 Epilepsy, unspecified, not intractable, without status epilepticus; N40.0 Benign prostatic hyperplasia without lower urinary tract symptoms; E87.6 Hypokalemia; I47.2 Ventricular tachycardia; I48.11 Longstanding persistent atrial fibrillation; M19.90 Unspecified osteoarthritis, unspecified site; Z79.01 Long term (current) use of anticoagulants; Z79.899 Other long term (current) drug therapy; Z95.0 Presence of cardiac pacemaker; Z95.5 Presence of coronary angioplasty implant and graft
CPT/HCPCS: 36415; 70450; 78452; 80048; 80162; 84484; 85025; 93005; 93017; 97802; 99218; 99285; A9500; A4216; G0378; J2785

== ENCOUNTER 2020-05-06 17:01 | Observation (INO) | payer MEDICARE, OTHER, SELFPAY ==
[2020-04-18 14:58] VITALS: BMI 22.1
[2020-05-06] VITALS (7 sets, daily range): BP systolic 93–138; BP diastolic 68–98; PULSE 68–79; RESP 16–18; TEMP 36.5–36.9; O2SAT 95–100; BMI 21.2; BMI 20.5; BMI 20.6
--- NOTE | 2020-05-06 17:25 | ED.DCSUM_ITS ---
History of Present Illness Informant: Patient Limited by: Dementia Onset: Today Narrative: 84 year old male with PMH HTN, HLD, CAD s/p stents, A fib on Eliquis, hypothryoidism, Parkinson's disease, dementia is with complaints of clogged Michael catheter. Patient is in the TCU and had a Michael catheter placed this morning secondary to inability to urinate. Left noted hematuria and attempted to irrigate with no success. He does take Eliquis. Denies fevers, chills, vom iting, or abdominal pain. <Beth Amaya - Last Filed: 05/06/20 18:18> <Venice Marquez - Last Filed: 05/07/20 02:09> Chief Complaint: Complaint Past Medical History Past Medical History: - - Hypertension, hyperlipidemia, A. fib, Parkinson's, dementia Surgical History: angioplasty - Cardiac stent., cataract, herniorrhaphy, pacemaker implantation, total knee arthroplasty, - - Neurosurgery for traumatic intracranial bleed 10 years ago or more Smoking Status: Unknown if ever smoked - Family History Maternal Family History: Family History (Last Reviewed 04/18/20 @ 14:[address] Russel Byrne DO) Father CAD (coronary artery disease) Myocardial infarction Sudden cardiac Mother No problems noted. Uncle CAD (coronary artery disease) Sudden cardiac Myocardial infarction Other Heart disease Family History: Reports: - - Denies any market maternal family history including heart disease, diabetes or cancer. Paternal Family History: Family History (Last Reviewed 04/18/20 @ 14:[address] Russel Byrne DO) Father CAD (coronary artery disease) Myocardial infarction Sudden cardiac Mother No problems noted. Uncle CAD (coronary artery disease) Sudden cardiac Myocardial infarction Other Heart disease Family History: Reports: High Cholesterol, Heart Disease, Hypertension, - - father had mi at age 69 <Beth Amaya - Last Filed: 05/06/20 18:18> - Family History Maternal Family History: Family History (Last Reviewed 04/18/20 @ 14:[address] Russel Byrne DO) Father CAD (coronary artery disease) Myocardial infarction Sudden cardiac Mother No problems noted. Uncle CAD (coronary artery disease) Sudden cardiac Myocardial infarction Other Heart disease Paternal Family History: Family History (Last Reviewed 04/18/20 @ 14:[address] Russel Byrne, DO) Father CAD (coronary artery disease) Myocardial infarction Sudden cardiac Mother No problems noted. Uncle CAD (coronary artery disease) Sudden cardiac Myocardial infarction Other Heart disease <Venice Marquez - Last Filed: 05/07/20 02:09> - Allergies and Home Meds Allergies/Adverse Reactions: Allergies hydrochlorothiazide Adverse Reaction (Intermediate, Verified 05/06/20 17:02) syncope Review of Systems General: Denies: Chills, Fever, Sweats Eyes: Denies: Visual changes - bilaterally, Diplopia ENT: Denies: Rhinorrhea, Sore throat Cardiovascular: Denies: Chest pain, Palpitations Respiratory: Denies: Dyspnea, Cough, Dyspnea on exertion Gastrointestinal: Denies: Abdominal pain, Nausea, Vomiting, Diarrhea, Melena, H ematochezia Genitourinary: Reports: Hematuria Musculoskeletal: Denies: Back pain, Extremity Pain Skin: Denies: Rash, Wounds Neurological: Denies: Headache, Weakness <Beth Amaya - Last Filed: 05/06/20 18:18> Physical Exam Vital Signs/Narrative: Vital Signs Temp Pulse Resp BP Pulse Ox 05/06/20 17:02 98.4 F 79 17 137/96 H 97 Inital Vital Signs reviewed: Yes General: Well nourished, Well developed, No Acute Distress Head: Normocephalic, Atraumatic Eyes: Perrl, EOMI ENT: Moist mucous membranes, No rhinorrhea Neck: Supple, Nontender Cardiovascular: Regular rate, Regular rhythm, No murmurs Respiratory: No distress, CTA bilaterally, Chest nontender Abdomen: Soft, Nontender, Normal bowel sounds, - - Mild suprapubic distention, soft and nontender : - - Visible blood clot when nursing staff was changing Michael Back: Nontender, Normal Inspection Extremities: Nontender, No edema Skin: Normal color, No rash Neurological: Alert, Oriented x3, Cranial nerves II-XII grossly intact, Normal Strength, Normal Sensation Psychological: Normal affect, Normal Mood <Beth Amaya - Last Filed: 05/06/20 18:18> Vital Signs/Narrative: Vital Signs Temp Pulse Resp BP Pulse Ox 05/06/20 20:08 98.3 F 68 18 126/98 H 95 05/06/20 18:22 76 18 96/69 97 05/06/20 18:00 74 18 93/74 95 05/06/20 17:02 98.4 F 79 17 137/96 H 97 <Venice Marquez - Last Filed: 05/07/20 02:09> Diagnostic/Tx/Re-eval - Medical Decision Making Patient presented with blocked Michael and hematuria. He appears well nontoxic. Vital signs unremarkable. Abdominal exam is benign. Nursing staff placed 22 Spanish Michael and it is draining well. There was initially a clot but now urine is clear. Patient is stable for discharge back to TCU. <Beth Amaya - Last Filed: 05/06/20 18:18> Laboratory Data 05/06/20 05/06/20 05/06/20 17:50 20:29 20:29 WBC 11.9 H RBC 5.22 Hgb 16.0 Hct 46.8 MCV 89.7 MCH 30.7 MCHC 34.2 RDW Std Deviation 46.0 H RDW Coeff of Carolyn 14.0 Plt Count 246 MPV 9.8 Immature Gran % (Auto) 0.600 Neut % (Auto) 88.4 H Lymph % (Auto) 5.6 L Bibb % (Auto) 5.0 Eos % (Auto) 0.1 Baso % (Auto) 0.3 Absolute Neuts (auto) 10.5 H Absolute Lymphs (auto) 0.66 L Nucleated RBC % 0 PT 15.0 H INR 1.2 APTT 30.8 Sodium Potassium Chloride Carbon Dioxide Anion Gap BUN Creatinine Estim Creat Clear Calc Est GFR (MDRD) Af Amer Est GFR (MDRD) Non-Af BUN/Creatinine Ratio Glucose Calcium Urine Color Red Urine Clarity Turbid Urine pH 6.5 Ur Specific [place] 1.015 Urine Protein 100 H Urine Glucose (UA) Normal Urine Ketones 5 H Urine Occult Blood 250 H Urine Nitrite Negative Urine Bilirubin Negative Urine Urobilinogen Normal Ur Leukocyte Esterase 25 H Urine RBC > 100 SEEN Urine WBC 0-5 SEEN Ur Squamous Epith Cells 0 SEEN Urine Bacteria 0 SEEN Urine Mucus 0 SEEN 05/06/20 20:29 WBC RBC Hgb Hct MCV MCH MCHC RDW Std Deviation RDW Coeff of Carolyn Plt Count MPV Immature Gran % (Auto) Neut % (Auto) Lymph % (Auto) Bibb % (Auto) Eos % (Auto) Baso % (Auto) Absolute Neuts (auto) Absolute Lymphs (auto) Nucleated RBC % PT INR APTT Sodium 140 Potassium 5.3 H Chloride 109 H Carbon Dioxide 22.0 Anion Gap 9 BUN 18 Creatinine 1.67 H Estim Creat Clear Calc 35.55 Est GFR (MDRD) Af Amer 51 L Est GFR (MDRD) Non-Af 42 L BUN/Creatinine Ratio 10.8 Glucose 105 Calcium 8.5 Urine Color Urine Clarity Urine pH Ur Specific [place] Urine Protein Urine Glucose (UA) Urine Ketones Urine Occult Blood Urine Nitrite Urine Bilirubin Urine Urobilinogen Ur Leukocyte Esterase Urine RBC Urine WBC Ur Squamous Epith Cells Urine Bacteria Urine Mucus - Medical Decision Making Patient seen in conjunction with PA. I agree with above. Pertinent findings are below. Patient had a Michael placed this morning and is now occluded. Michael catheter is replaced and patient has 800 cc of bloody urine out. Initially patient was discharged back to the TCU however once he arrived there nursing staff stated they could not handle continuous bladder irrigation and he needs to be admitted to the hospital. Patient hemoglobin is stable. He is started on continuous bladder irrigation and is admitted to the hospitalist. I did discuss the case with Dr. Stanford, see the patient in the morning. He is hemodynamically stable in the emergency room. <Venice Marquez - Last Filed: 05/07/20 02:09> ED Disposition <Beth Amaya - Last Filed: 05/06/20 18:18> <Venice Marquez - Last Filed: 05/07/20 02:09> - Plan for ED Patient: Disposition: Acute Care Hospital [facility] Diagnosis: Michael catheter problem, Hematuria, Acute urinary retention
--- NOTE | 2020-05-06 17:28 | ED.RN ---
23F 3-WAY JONES CATHETER PLACED, GROSS HEMATURIA WITH CLOTS NOTED, NATO, MADE AWARE.
[2020-05-06 18:02] LABS: Bacteria 0 SEEN /hpf (None Seen); Mucous, Urine 0 SEEN /hpf (<or=2+); Squamous Epithelial Cells - UA 0 SEEN /hpf (0-5)
[2020-05-06 18:11] LABS: Color, Urine Red (Yellow); Glucose, Dipstick Normal (Normal); Ketone-Dipstick 5 mg/dl (Negative); Leukocyte Esterase-Dipstick 25 /ul (Negative); Nitrite-Dipstick Negative (Negative); Occult Blood-Urine 250 /ul (Negative); Protein-Dipstick 100 mg/dl (Negative); Specific Gravity, Urine 1.015 (1.002-1.030); Urine Bilirubin Dipstick Negative (Negative); Urine Clarity Turbid (Clear); Urine Urobilinogen Normal (Normal); Urine pH 6.5 (5.0 - 8.0)
[2020-05-06 18:19] LABS: Red Blood Cells-Urine > 100 SEEN /hpf (0-5); White Blood Cells 0-5 SEEN /hpf (0-5)
--- NOTE | 2020-05-06 20:11 | ED.RN ---
patient sent back from TCU due to increasing blood in urine. TCU unable to manage care at this time. Patient to be admitted
[2020-05-06 20:34] LABS: Absolute Lymphocyte Count 0.66 X10^3/uL (0.83-4.51); Absolute Neutrophil Count 10.5 X10^3/uL (2.0-7.7); Basophil# 0.04 X10^3/uL; Basophil% 0.3 % (0-1); Eosinophil# 0.01 X10^3/uL; Eosinophils% 0.1 % (0-5); Hematocrit 46.8 % (40-54); Lymphocyte # 0.66 X10^3/ul (4.0); Lymphocyte % 5.6 % (19-41); Mean Corp Hgb Conc 34.2 g/dL (32-36); Mean Corpuscular Hgb 30.7 pg (27.0-32.0); Mean Corpuscular Volume 89.7 fL (80-94); Mean Platelet Vol. 9.8 fl (6.2-12.0); Monocyte# 0.59 X10^3/uL; NRBC Flagged by Analyzer 0 % (0-5); Neutrophil # 10.49 X10^3/uL (2.7-7.7); Neutrophil % 88.4 % (47-70); Platelet Count 246 K/mm3 (150-450); Red Blood Count 5.22 M/mm3 (4.6-6.2); White Blood Count 11.9 K/mm3 (4.4-11.0)
[2020-05-06 20:47] LABS: International Normalized Ratio 1.2
[2020-05-06 20:48] LABS: Partial Thromboplast Time 30.8 Seconds (24.1-36.2)
[2020-05-06 20:59] LABS: Anion Gap 9 (5-15); BUN 18 mg/dL (7-18); BUN/Creat Ratio 10.8 RATIO (10-20); Calcium,Total 8.5 mg/dL (8.5-10.1); Chloride 109 mmol/L (98-107); Creatinine, Serum 1.67 mg/dL (0.70-1.30); EST Glomerular Filtration Rate 42 mL/min (>60); Est Glom Filt Rate - Afr Amer 51 mL/min (>60); Estimated Creatinine Clearance 35.55 ml/min; Glucose 105 mg/dL (74-106); Potassium 5.3 mmol/L (3.5-5.1); Sodium Level 140 mmol/L (136-145)
--- NOTE | 2020-05-06 21:31 | HP.PCM_ITS ---
Problem List (1) Gross hematuria Status: Acute (2) Michael catheter problem Status: Acute (3) Acute urinary retention Status: Acute (4) Atrial fibrillation Status: Chronic Qualifiers: (5) Orthostatic hypotension Status: Chronic (6) Debility Status: Chronic (7) Syncope Status: Chronic Comment: dizziness/pre-syncope (8) Parkinson's plus syndrome Status: Chronic (9) Coronary artery disease Status: Chronic (10) Hypertension Status: Chronic (11) Glaucoma Status: Chronic (12) Hypothyroidism Status: Chronic (13) Hypokalemia Status: Chronic (14) Seizure disorder Status: Chronic (15) BPH (benign prostatic hyperplasia) Status: Chronic (16) 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: 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 (17) TIA (transient ischemic attack) Status: Chronic (18) Chronic a-fib Status: Chronic (19) Ventricular tachycardia Status: Chronic (20) Cardiomyopathy, dilated, nonischemic Status: Chronic (21) Atherosclerotic heart disease of ken[place] coronary artery without angina pectoris Status: Chronic Qualifiers: Comment: [id number] LAD 09/21/2004 (22) History of coronary artery stent placement Status: Chronic Comment: [id number] LAD 09/21/2004 (23) Longstanding persistent atrial fibrillation Status: Chronic (24) Presence of permanent cardiac pacemaker Status: Chronic Comment: Permanent Pacemaker insertion, single chamber 10/17/15, [employer] (25) Essential (primary) hypertension Status: Chronic (26) Hyperlipidemia Status: Chronic Qualifiers: (27) Bundle branch block, right Status: Chronic History of Present Illness Date of Admission: 05/06/20 Chief Complaint: Gross hematuria. The patient is a 84 year old M with a significant history of 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; essential hypertension; hypothyroidism; CAD status post stents who was transferred from transitional care unit of [facility] to the emergency department because of gross hematuria. Reportedly because patient could not urinate a Michael catheter was placed at the transitional care unit. Hematuria was noted. The Michael catheter was manually irrigated and there was no output coming out. Patient was brought to emergency department where the Michael was replaced. Hematuria was again noted. The plan was to send patient back to TCU for bladder irrigation. However TCU staff reported that they could not manage bladder irrigation so a decision was made to observe patient's at the acute care setting. Emergency department doctor reportedly discussed the case with Dr. Stanford, urology, who will follow the patient on consult. Past Medical History Past Medical History (Chronic Problems): Chronic Problems (Last Reviewed 05/07/20 @ 03:[address] Fabian Elizabeth MD) Atrial fibrillation (Chronic) Orthostatic hypotension (Chronic) Debility (Chronic) Syncope (Chronic) dizziness/pre-syncope Parkinson's plus syndrome (Chronic) Coronary artery disease (Chronic) Hypertension (Chronic) Glaucoma (Chronic) Hypothyroidism (Chronic) Hypokalemia (Chronic) Seizure disorder (Chronic) BPH (benign prostatic hyperplasia) (Chronic) [facility] current use of anticoagulant (Chronic) TIA (transient ischemic attack) (Chronic) Chronic a-fib (Chronic) Ventricular tachycardia (Chronic) Cardiomyopathy, dilated, nonischemic (Chronic) Atherosclerotic heart disease of kenaitze coronary artery without angina pectoris (Chronic) [id number] LAD 09/21/2004 History of coronary artery stent placement (Chronic 09/21/04) [id number] LAD 09/21/2004 Longstanding persistent atrial fibrillation (Chronic) 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) Permanent Pacemaker insertion, single chamber 10/17/15, [employer] Essential (primary) hypertension (Chronic) Hyperlipidemia (Chronic) Bundle branch block, right (Chronic) Medical History: Medical History (Last Reviewed 05/07/20 @ 04:[address] Fabian Elizabeth MD) Cardiomyopathy, dilated, nonischemic (Chronic) I42.0 Atherosclerotic heart disease of ken[place] coronary artery without angina pectoris (Chronic) I25.10 [id number] LAD 09/21/2004 Longstanding persistent atrial fibrillation (Chronic) I48.11 Essential (primary) hypertension (Chronic) I10 Hyperlipidemia (Chronic) E78.5 Bundle branch block, right (Chronic) I45.10 Glaucoma H40.9 History of 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 Onset Date: 09/13/08 Z86.79 09/13/2008 Hypothyroidism E03.9 Osteoarthritis M19.90 Lower GI bleed K92.2 Allergies hydrochlorothiazide Adverse Reaction (Intermediate, Verified 05/06/20 17:02) syncope Home Medications: Ambulatory Orders Medication Instructions Recorded Latanoprost 0.005% [Xalatan 1 drp EACH EYE QHS 07/31/18 Opthalmic] Apixaban [Eliquis] 2.5 mg PO BID 03/14/20 Atorvastatin Calcium [Lipitor] 40 mg PO DAILY@2200 03/14/20 Levothyroxine Sodium [Synthroid] 75 mcg PO DAILY 03/14/20 Potassium Chloride [K-Dur] 40 meq PO DAILYCM 03/14/20 midodrine 10 mg tablet 10 mg PO TID 04/01/20 Amiodarone HCl [Cordarone] 200 mg PO BID 04/08/20 Digoxin [Lanoxin] 125 mcg PO DAILY 04/08/20 Fludrocortisone Acetate [Florinef] 0.3 mg PO DAILY@0800 04/08/20 Menthol/Lanolin/Calamine/Znox 1 applic TOPICAL BID 04/18/20 [Calmoseptine Ointment] Mineral Oil/Petrolatum,White 1 applic TOPICAL BID PRN PRN 04/18/20 [Eucerin] Polyethylene Glycol 3350 [Miralax] 17 gm PO DAILY 04/18/20 levETIRAcetam tablet [Keppra 250 mg PO BID 04/18/20 tablet] Mirtazapine 7.5 mg PO QHS 05/06/20 Tamsulosin HCl [Flomax] 0.4 mg PO 1730 05/06/20 Surgical History: Surgical History (Last Reviewed 05/07/20 @ 04:[address] Fabian Elizabeth MD) History of coronary artery stent placement (Chronic) Onset Date: 09/21/04 Z95.5 [id number] LAD 09/21/2004 Presence of permanent cardiac pacemaker (Chronic) Onset Date: 10/17/15 Z95.0 Permanent Pacemaker insertion, single chamber 10/17/15, [employer] History of bilateral cataract extraction Z98.41, Z98.42 History of bilateral knee replacement Z96.653 06/22/2014 History of craniotomy Onset Date: 09/13/08 Z98.890 09/13/08 for 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 History of radiofrequency ablation procedure for cardiac arrhythmia Z98.890 Surgical History: angioplasty - Cardiac stent., cataract, herniorrhaphy, pacemaker implantation, total knee arthroplasty, - - Neurosurgery for traumatic intracranial bleed 10 years ago or more Psychiatric History: No pertinent psych hx Smoking Status: Unknown if ever smoked - *Family History Maternal Family History: Family History (Last Reviewed 05/07/20 @ 04:[address] Fabian Elizabeth MD) Father CAD (coronary artery disease) Myocardial infarction Sudden cardiac Mother No problems noted. Uncle CAD (coronary artery disease) Sudden cardiac Myocardial infarction Other Heart disease History Items: - - Denies any market maternal family history including heart disease, diabetes or cancer. Paternal Family History: Family History (Last Reviewed 05/07/20 @ 04:[address] Fabian Elizabeth MD) Father CAD (coronary artery disease) Myocardial infarction Sudden cardiac Mother No problems noted. Uncle CAD (coronary artery disease) Sudden cardiac Myocardial infarction Other Heart disease History Items: High Cholesterol, Heart Disease, Hypertension, - - father had mi at age 69 Review of Systems Constitutional: Denies: Chills, Fever, Weight Change HEENT: Denies: Head Aches, Sinus Congestion, Sinus Drainage Cardiovascular: Denies: Chest Pain, Palpitations Respiratory: Denies: Cough, Shortness of breath at rest, Sputum production Gastrointestinal: Denies: Abdominal Pain, Nausea, Vomiting Genitourinary: Reports: Hematuria, Retention. Denies: Dysuria Musculoskeletal: Denies: Joint Pain, Joint Tenderness Skin: Denies: Rash, Wounds Neurological: Reports: Confusion - Chronic. Denies: Focal weakness, Numbness, Tingling Psychiatric: Denies: Anxiety, Depression, Homicidal Ideations, Suicidal Ideations Hematologic/ Lymphatic: Denies: Easy Bruising, Easy Bleeding VTE Information - Inpt Only VTE Present on Admission: No VTE Mechan Device Prophylaxis: SCD's VTE Pharm Prophylaxis ordered?: No Patient Problems: Active and Suspected Problems (Last Reviewed 05/07/20 @ 03:[address] Fabian Elizabeth MD) Michael catheter problem (Acute) Acute urinary retention (Acute) Gross hematuria (Acute) - Physical Exam Vitals/I&O's: Vital Signs Temp Pulse Resp BP Pulse Ox 98.3 F 68 18 126/98 H 95 05/06/20 20:08 05/06/20 20:08 05/06/20 20:08 05/06/20 20:08 05/06/20 20:08 Oxygen Delivery Method Room Air Weight: 75 kg Body Mass Index (BMI) 21.2 Finger Stick Blood Glucose 115 General: Alert, Confused HEENT: Atraumatic, PERRLA, EOMI, Normocephalic Neck: Supple, No JVD, Negative Carotid Bruits Lungs: Clear to auscultation, Normal air movement Cardiovascular: Regular rate, No murmurs Abdomen: Bowel Sounds Present, Soft, Non Tender, - - Gross blood noted in Michael catheter. Extremities: No edema, Capillary Refill Less than 3 Seconds Skin: No rashes, No breakdown Musculoskeletal: No Tenderness to Palpation of Joints or Extremities Neurological: Cranial nerves II-XII grossly intact Psych/Mental Status: Normal Affect, Appropriate Laboratory Results 05/06/20 17:50: Urine Color Red, Urine Clarity Turbid, Urine pH 6.5, Ur Specific [place] 1.015, Urine Protein 100 H, Urine Glucose (UA) Normal, Urine Ketones 5 H, Urine Occult Blood 250 H, Urine Nitrite Negative, Urine Bilirubin Negative, Urine Urobilinogen Normal, Ur Leukocyte Esterase 25 H, Urine RBC > 100 SEEN, Urine WBC 0-5 SEEN, Ur Squamous Epith Cells 0 SEEN, Urine Bacteria 0 SEEN, Urine Mucus 0 SEEN 05/06/20 20:29: WBC 11.9 H, RBC 5.22, Hgb 16.0, Hct 46.8, MCV 89.7, MCH 30.7, MCHC 34.2, RDW Std Deviation 46.0 H, RDW Coeff of Carolyn 14.0, Plt Count 246, MPV 9.8, Immature Gran % (Auto) 0.600, Neut % (Auto) 88.4 H, Lymph % (Auto) 5.6 L, [place] % (Auto) 5.0, Eos % (Auto) 0.1, Baso % (Auto) 0.3, Absolute Neuts (auto) 10.5 H, Absolute Lymphs (auto) 0.66 L, Nucleated RBC % 0 05/06/20 20:29: PT 15.0 H, INR 1.2, APTT 30.8 05/06/20 20:29: Sodium 140, Potassium 5.3 H, Chloride 109 H, Carbon Dioxide 22.0, Anion Gap 9, BUN 18, Creatinine 1.67 H, Estim Creat Clear Calc 35.55, Est GFR (MDRD) Af Amer 51 L, Est GFR (MDRD) Non-Af 42 L, BUN/Creatinine Ratio 10.8, Glucose 105, Calcium 8.5 Assessment/Plan All Active Problems (Last Reviewed 05/07/20 @ 03:[address] Fabian Elizabeth MD) Michael catheter problem (Acute) Acute urinary retention (Acute) Gross hematuria (Acute) The patient is a 84 year old M with a significant history of 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; essential hypertension; hypothyroidism; CAD status post stents who was transferred from transitional care unit of [facility] to the emergency department because of urinary retention and gross hematuria after placement of Michael catheter. Acute urinary retention with gross hematuria Review of emergency department labs showed mild leukocyte esterase and urine RBC of more than 100. Three-way bladder irrigation was started at the emergency department; continued Hold Eliquis for now. Urology consult. Trend CBC. Trend BMP KIAH Likely secondary to urinary retention. Creatinine presentation was 1.67. Review of old record showed creatinine baseline of around 1.2. Michael catheter in place. Trend BMP. BUN is 18. BUN over creatinine is 10.8. Leukocytosis Mild Likely reactive Trend CBC. Atrial fibrillation Eliquis on hold Amiodarone and digoxin continued. Creatinine is only mildly elevated. Trend BMP. If creatinine remains elevated consider de-escalating dose of Multisystem atrophy Florinef and midodrine continued Depression Mirtazapine continued. Hyperkalemia Potassium level on presentation was 5.3. Hold potassium. DVT prophylaxis In the setting of gross hematuria no chemical trauma prophylaxis. SCD ordered. OBSV E&M: [id number] Initial observation care L3
[2020-05-06] MEDS: Acetaminophen 325 MG Tablet 650 MG PO (21:53)
[2020-05-07] VITALS (8 sets, daily range): BP systolic 148–157; BP diastolic 72–97; PULSE 60–82; RESP 16–18; TEMP 36.4–36.8; O2SAT 94–98
[2020-05-07] MEDS: Midodrine HCl 5 MG Tablet 10 MG PO ×2 (05:27→12:36)
[2020-05-07] MEDS: Levothyroxine 75 MCG Tablet PO (05:27)
[2020-05-07 06:34] LABS: Absolute Lymphocyte Count 1.03 X10^3/uL (0.83-4.51); Absolute Neutrophil Count 8.1 X10^3/uL (2.0-7.7); Basophil# 0.05 X10^3/uL; Basophil% 0.5 % (0-1); Eosinophil# 0.15 X10^3/uL; Eosinophils% 1.5 % (0-5); Hematocrit 44.6 % (40-54); Hemoglobin 15.3 g/dL (13.0-16.5); Lymphocyte # 1.03 X10^3/ul (4.0); Lymphocyte % 10.1 % (19-41); Mean Corp Hgb Conc 34.3 g/dL (32-36); Mean Corpuscular Hgb 30.4 pg (27.0-32.0); Mean Corpuscular Volume 88.7 fL (80-94); Mean Platelet Vol. 9.8 fl (6.2-12.0); Monocyte# 0.83 X10^3/uL; Monocyte% 8.1 % (0-10); NRBC Flagged by Analyzer 0 % (0-5); Neutrophil # 8.11 X10^3/uL (2.7-7.7); Neutrophil % 79.1 % (47-70); Platelet Count 255 K/mm3 (150-450); RBC Distribution Width CV 14.1 % (11.6-14.6); RBC Distribution Width SD 45.6 fl (35.1-43.9); Red Blood Count 5.03 M/mm3 (4.6-6.2); White Blood Count 10.2 K/mm3 (4.4-11.0)
[2020-05-07 06:49] LABS: Anion Gap 9 (5-15); BUN 23 mg/dL (7-18); BUN/Creat Ratio 13.9 RATIO (10-20); Calcium,Total 8.2 mg/dL (8.5-10.1); Chloride 105 mmol/L (98-107); Creatinine, Serum 1.65 mg/dL (0.70-1.30); EST Glomerular Filtration Rate 43 mL/min (>60); Est Glom Filt Rate - Afr Amer 51 mL/min (>60); Estimated Creatinine Clearance 34.88 ml/min; Glucose 92 mg/dL (74-106); Potassium 3.7 mmol/L (3.5-5.1); Sodium Level 139 mmol/L (136-145)
[2020-05-07] MEDS: Digoxin 125 MCG Tablet PO (08:28)
[2020-05-07] MEDS: levETIRAcetam 250 MG Tablet PO (08:28)
[2020-05-07] MEDS: Amiodarone 200 MG Tablet PO (08:28)
[2020-05-07] MEDS: Fludrocortisone Acetate 0.1 MG Tablet 0.3 MG PO (08:28)
[2020-05-07] MEDS: Menthol/Lanolin/Calamine/Znox 113 GM Tube 1 APPLIC TOPICAL (08:29)
--- NOTE | 2020-05-07 10:51 | CASEMGMT ---
SW spoke w/Susi in TCU, pt can return to TCU whenever he is ready, SW let RN in TCU know and green sheet placed on chart. MAYRA Sharp
--- NOTE | 2020-05-07 10:59 | CASEMGMT ---
LW/POA forms in summary tab of georgi, daughter Mar Hester is pt's medical POA. MAYRA Sharp
--- NOTE | 2020-05-07 11:11 | NURSING ---
Lilia Virk informed this nurse that she irrigated Michael at this time and no clots were obtained.
--- NOTE | 2020-05-07 12:24 | PCM.EXTCARCO ---
- Diet 05/07/20 09:20 Diet: Regular - General Is pt able to select menu?: Yes - Routine Orders/Code Status Routine Lab Work: CBC - 3 days, BMP - 3 days Code Status: Full Code - Therapies Physical Therapy: Eval and Treat Occupational Therapy: Eval and Treat - Problem/Diagnosis (1) Acute urinary retention Status: Acute Current Visit: Yes (2) Gross hematuria Status: Acute Current Visit: Yes - Allergies/Procedures Done in Hospital Allergies/Adverse Reactions: Allergies hydrochlorothiazide Adverse Reaction (Intermediate, Verified 05/06/20 17:02) syncope - Type of Care/Length of Stay Estimated LOS: Convalescent Care Less Than 30 days Type of Care Needed: Skilled Rehab Potential: Fair Prognosis: Fair - Additional Orders/Day of Discharge Additional Orders: HOLD Eliquis for 5 days. Continue hernandez until otherwise instructed by Urology - Hien. Day of Discharge: 05/07/20 - Follow Up Care Primary Care Physician: Dariusz Gonzalez Chi, MD [Primary Care Provider] - Please follow up with your Primary Care Physician in: 1 week Please Follow Up With: Damir Stanford MD When: 5 days
--- NOTE | 2020-05-07 12:40 | PCM.DC.SUM ---
<Everton Bajwa - Last Filed: 05/07/20 12:40> Discharge Date and Diagnosis - Problem List Patient Problems: Active and Suspected Problems (Last Reviewed 05/07/20 @ 04:[address] Fabian Elizabeth MD) Hernandez catheter problem (Acute) Acute urinary retention (Acute) Gross hematuria (Acute) Date of Admission: 04/08/20 Date of Discharge: 05/07/20 - Primary Discharge Diagnosis Acute Problems: Active Problems (Last Reviewed 05/07/20 @ 04:[address] Fabian Elizabeth MD) Hematuria 2/2 hernandez insertion for urinary retention kiah 2/2 urinary retention. - Secondary Discharge Diagnosis Chronic Problems: Chronic Problems (Last Reviewed 05/07/20 @ 04:[address] 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) TIA (transient ischemic attack) (Chronic) Chronic a-fib (Chronic) Ventricular tachycardia (Chronic) Cardiomyopathy, dilated, nonischemic (Chronic) Atherosclerotic heart disease of [place] coronary artery without angina pectoris (Chronic) [id number] LAD 09/21/2004 History of coronary artery stent placement (Chronic 09/21/04) [id number] LAD 09/21/2004 Longstanding persistent atrial fibrillation (Chronic) 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 This began after a hernandez was placed for hematuria. He was found to have no significant anemia in the ER. Continuous bladder irrigation was started in the ER and urology was contacted. Pt was admitted to the med surg unit overnight. UA was not consistent with infection. Eliquis was held. Renal function was c/w KIAH likely due to urinary retention. The patients CBI ran clear by the following day. He had no significant anemia. He was discharged with hernandez in place back to TCU in stable condition. He will need to follow up with urology in 5 days. CBC/BMP in 3 days. Hold eliquis for 5 days. This patient was seen by Everton Bajwa PA-C under the supervision of Doctor Ashleigh. [] Patient Problems: Active and Suspected Problems (Last Reviewed 05/07/20 @ 04:[address] Fabian Elizabeth MD) Hernandez catheter problem (Acute) Acute urinary retention (Acute) Gross hematuria (Acute) - Physical Exam Vitals/I&O's: Vital Signs Temp Pulse Resp BP Pulse Ox 97.8 F 64 18 156/90 H 94 05/07/20 08:36 05/07/20 08:36 05/07/20 08:36 05/07/20 08:36 05/07/20 11:10 Oxygen Delivery Method Room Air Weight: 160 lb 4.417 oz Body Mass Index (BMI) 20.5 Finger Stick Blood Glucose 115 Intake and Output for Last 24 Hours 05/05/20 05/06/20 05/07/20 23:59 23:59 23:59 Intake Total 50 / 50 Output Total 625 / 625 Balance -575 / -575 General: Alert, Oriented x3, Cooperative HEENT: Atraumatic, PERRLA, EOMI, Normocephalic Neck: Supple, No JVD, Negative Carotid Bruits Lungs: Clear to auscultation, Normal air movement Cardiovascular: Regular rate, No murmurs Abdomen: Bowel Sounds Present, Soft, Non Tender Extremities: No edema, Capillary Refill Less than 3 Seconds Skin: No rashes, No breakdown Musculoskeletal: No Tenderness to Palpation of Joints or Extremities Neurological: Cranial nerves II-XII grossly intact Psych/Mental Status: Normal Affect, Appropriate, Alert and oriented to time, place, person, mood and affect Laboratory Results 05/06/20 17:50: Urine Color Red, Urine Clarity Turbid, Urine pH 6.5, Ur Specific [place] 1.015, Urine Protein 100 H, Urine Glucose (UA) Normal, Urine Ketones 5 H, Urine Occult Blood 250 H, Urine Nitrite Negative, Urine Bilirubin Negative, Urine Urobilinogen Normal, Ur Leukocyte Esterase 25 H, Urine RBC > 100 SEEN, Urine WBC 0-5 SEEN, Ur Squamous Epith Cells 0 SEEN, Urine Bacteria 0 SEEN, Urine Mucus 0 SEEN 05/06/20 20:29: WBC 11.9 H, RBC 5.22, Hgb 16.0, Hct 46.8, MCV 89.7, MCH 30.7, MCHC 34.2, RDW Std Deviation 46.0 H, RDW Coeff of [place] 14.0, Plt Count 246, MPV 9.8, Immature Gran % (Auto) 0.600, Neut % (Auto) 88.4 H, Lymph % (Auto) 5.6 L, Lake % (Auto) 5.0, Eos % (Auto) 0.1, Baso % (Auto) 0.3, Absolute Neuts (auto) 10.5 H, Absolute Lymphs (auto) 0.66 L, Nucleated RBC % 0 05/06/20 20:29: PT 15.0 H, INR 1.2, APTT 30.8 05/06/20 20:29: Sodium 140, Potassium 5.3 H, Chloride 109 H, Carbon Dioxide 22.0, Anion Gap 9, BUN 18, Creatinine 1.67 H, Estim Creat Clear Calc 35.55, Est GFR (MDRD) Af Amer 51 L, Est GFR (MDRD) Non-Af 42 L, BUN/Creatinine Ratio 10.8, Glucose 105, Calcium 8.5 05/07/20 06:27: WBC 10.2, RBC 5.03, Hgb 15.3, Hct 44.6, MCV 88.7, MCH 30.4, MCHC 34.3, RDW Std Deviation 45.6 H, RDW Coeff of [place] 14.1, Plt Count 255, MPV 9.8, Immature Gran % (Auto) 0.700, Neut % (Auto) 79.1 H, Lymph % (Auto) 10.1 L, Lake % (Auto) 8.1, Eos % (Auto) 1.5, Baso % (Auto) 0.5, Absolute Neuts (auto) 8.1 H, Absolute Lymphs (auto) 1.03, Nucleated RBC % 0 05/07/20 06:27: Sodium 139, Potassium 3.7, Chloride 105, Carbon Dioxide 25.0, Anion Gap 9, BUN 23 H, Creatinine 1.65 H, Estim Creat Clear Calc 34.88, Est GFR (MDRD) Af Amer 51 L, Est GFR (MDRD) Non-Af 43 L, BUN/Creatinine Ratio 13.9, Glucose 92, Calcium 8.2 L Current Medications Acetaminophen (Tylenol) 650 mg PO Q6H PRN PRN PRN Reason: Pain Score 1-10/Temp > 100.7 F Am[facility]) [facility] Last Admin: 05/07/20 08:28 Dose: 200 mg Documented by: Atorvastatin Calcium (Lipitor) 40 mg PO DAILY@2200 [facility] Calamine/Phenol (Calmoseptine Ointment) 1 applic TOPICAL BID [facility]; Protocol Last Admin: 05/07/20 08:29 Dose: 1 applicatio Documented by: Digoxin (Lanoxin) 125 mcg PO DAILY [facility] Last Admin: 05/07/20 08:28 Dose: 125 mcg Documented by: Fludrocortisone Acetate (Florinef) 0.3 mg PO DAILY@0800 [facility] Last Admin: 05/07/20 08:28 Dose: 0.3 mg Documented by: Sodium Chloride () 250 mls @ 15 mls/hr IV .[id number] PRN PRN Reason: Saline Flush Sodium Chloride () 250 mls @ 15 mls/hr IV .[id number] PRN PRN Reason: Additional IVPB Infusion Latanoprost (Xalatan Opthalmic) 1 drop EACH EYE QHS [facility] Levetiracetam (Keppra Tablet) 250 mg PO BID [facility] Last Admin: 05/07/20 08:28 Dose: 250 mg Documented by: Levothyroxine Sodium (Synthroid) 75 mcg PO DAILY@0600 [facility] Last Admin: 05/07/20 05:27 Dose: 75 mcg Documented by: Midodrine (Proamatine) 10 mg PO TID@0600,1200,1800 [facility] Last Admin: 05/07/20 12:36 Dose: 10 mg Documented by: Mirtazapine (Remeron) 7.5 mg PO QHS [facility] Multi-Ingredient Cream (Eucerin) 1 applic TOPICAL BID PRN PRN; Protocol PRN Reason: skin Nutritional Formula (Lactose Free) (Ensure Enlive) 120 ml PO 4X/DAY [facility] Last Admin: 05/07/20 08:28 Dose: Not Given Documented by: Ondansetron HCl (Zofran) 4 mg IV Q8H PRN PRN PRN Reason: NAUSEA/VOMITING Polyethylene Glycol (Miralax) 17 gm PO DAILY [facility] Last Admin: 05/07/20 08:29 Dose: Not Given Documented by: Sodium Chloride () 10 - 40 ml IV UD PRN PRN Reason: SALINE FLUSH Tamsulosin HCl (Flomax) 0.4 mg PO 1730 [facility] Discharge Diet: Low fat/ Low Cholesterol, 2000 mg Sodium Diet Discharge Activity: Return to Normal Activity Call your doctor if you observe: - - hematuria Home Medications: Medications to take at Discharge Latanoprost 0.005% [Xalatan Opthalmic] 1 drp EACH EYE QHS 07/31/18 Apixaban [Eliquis] 2.5 mg PO BID 03/14/20 Atorvastatin Calcium [Lipitor] 40 mg PO DAILY@2200 03/14/20 Levothyroxine Sodium [Synthroid] 75 mcg PO DAILY 03/14/20 Potassium Chloride [K-Dur] 40 meq PO DAILYCM 03/14/20 midodrine 10 mg tablet 10 mg PO TID 04/01/20 Amiodarone HCl [Cordarone] 200 mg PO BID 04/08/20 Digoxin [Lanoxin] 125 mcg PO DAILY 04/08/20 Fludrocortisone Acetate [Florinef] 0.3 mg PO DAILY@0800 04/08/20 Menthol/Lanolin/Calamine/Znox [Calmoseptine Ointment] 1 applic TOPICAL BID 04/18/20 Mineral Oil/Petrolatum,White [Eucerin] 1 applic TOPICAL BID PRN PRN 04/18/20 Polyethylene Glycol 3350 [Miralax] 17 gm PO DAILY 04/18/20 levETIRAcetam tablet [Keppra tablet] 250 mg PO BID 04/18/20 Mirtazapine 7.5 mg PO QHS 05/06/20 Tamsulosin HCl [Flomax] 0.4 mg PO 1730 05/06/20 Primary Care Physician: Dariusz Gonzalez Chi, MD [Primary Care Provider] - Please follow up with your Primary Care Physician in: 1 week Please Follow Up With: Damir Stanford MD When: 5 days Disposition: Snf facility Minutes spent on discharge:: 35 Patient Condition:: Stable Medical Necessity - Tobacco Use Smoking Status: Unknown if ever smoked Meaningful Use Info Meaningful Use Diagnoses (Choose all that apply): None applicable <Gene Sotelo - Last Filed: 05/07/20 13:52> Discharge Date and Diagnosis - Primary Discharge Diagnosis Acute Problems: Active Problems (Last Reviewed 05/07/20 @ 04:[address] Fabian Elizabeth MD) Hernandez catheter problem (Acute) Acute urinary retention (Acute) Gross hematuria (Acute) - Secondary Discharge Diagnosis Chronic Problems: Chronic Problems (Last Reviewed 05/07/20 @ 04:[address] 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) TIA (transient ischemic attack) (Chronic) Chronic a-fib (Chronic) Ventricular tachycardia (Chronic) Cardiomyopathy, dilated, nonischemic (Chronic) Atherosclerotic heart disease of [place] coronary artery without angina pectoris (Chronic) [id number] LAD 09/21/2004 History of coronary artery stent placement (Chronic 09/21/04) [id number] LAD 09/21/2004 Longstanding persistent atrial fibrillation (Chronic) 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) Permanent Pacemaker insertion, single chamber 10/17/15, [employer] Ess[employer] (primary) hypertension (Chronic) Hyperlipidemia (Chronic) Bundle branch block, right (Chronic) Hospital Course and Treatment Summary of Care Provided: The patient is a 84 year old M [] - Physical Exam Vitals/I&O's: Vital Signs Temp Pulse Resp BP Pulse Ox 97.8 F 75 18 156/90 H 94 05/07/20 08:36 05/07/20 10:26 05/07/20 08:36 05/07/20 08:36 05/07/20 11:10 Oxygen Delivery Method Room Air Weight: 160 lb 4.417 oz Body Mass Index (BMI) 20.5 Finger Stick Blood Glucose 115 Intake and Output for Last 24 Hours 05/05/20 05/06/20 05/07/20 23:59 23:59 23:59 Intake Total 50 / 50 Output Total 825 / 825 Balance -775 / -775 Laboratory Results 05/06/20 17:50: Urine Color Red, Urine Clarity Turbid, Urine pH 6.5, Ur Specific [place] 1.015, Urine Protein 100 H, Urine Glucose (UA) Normal, Urine Ketones 5 H, Urine Occult Blood 250 H, Urine Nitrite Negative, Urine Bilirubin Negative, Urine Urobilinogen Normal, Ur Leukocyte Esterase 25 H, Urine RBC > 100 SEEN, Urine WBC 0-5 SEEN, Ur Squamous Epith Cells 0 SEEN, Urine Bacteria 0 SEEN, Urine Mucus 0 SEEN 05/06/20 20:29: WBC 11.9 H, RBC 5.22, Hgb 16.0, Hct 46.8, MCV 89.7, MCH 30.7, MCHC 34.2, RDW Std Deviation 46.0 H, RDW Coeff of [place] 14.0, Plt Count 246, MPV 9.8, Immature Gran % (Auto) 0.600, Neut % (Auto) 88.4 H, Lymph % (Auto) 5.6 L, Lake % (Auto) 5.0, Eos % (Auto) 0.1, Baso % (Auto) 0.3, Absolute Neuts (auto) 10.5 H, Absolute Lymphs (auto) 0.66 L, Nucleated RBC % 0 05/06/20 20:29: PT 15.0 H, INR 1.2, APTT 30.8 05/06/20 20:29: Sodium 140, Potassium 5.3 H, Chloride 109 H, Carbon Dioxide 22.0, Anion Gap 9, BUN 18, Creatinine 1.67 H, Estim Creat Clear Calc 35.55, Est GFR (MDRD) Af Amer 51 L, Est GFR (MDRD) Non-Af 42 L, BUN/Creatinine Ratio 10.8, Glucose 105, Calcium 8.5 05/07/20 06:27: WBC 10.2, RBC 5.03, Hgb 15.3, Hct 44.6, MCV 88.7, MCH 30.4, MCHC 34.3, RDW Std Deviation 45.6 H, RDW Coeff of [place]yn 14.1, Plt Count 255, MPV 9.8, Immature Gran % (Auto) 0.700, Neut % (Auto) 79.1 H, Lymph % (Auto) 10.1 L, Lake % (Auto) 8.1, Eos % (Auto) 1.5, Baso % (Auto) 0.5, Absolute Neuts (auto) 8.1 H, Absolute Lymphs (auto) 1.03, Nucleated RBC % 0 05/07/20 06:27: Sodium 139, Potassium 3.7, Chloride 105, Carbon Dioxide 25.0, Anion Gap 9, BUN 23 H, Creatinine 1.65 H, Estim Creat Clear Calc 34.88, Est GFR (MDRD) Af Amer 51 L, Est GFR (MDRD) Non-Af 43 L, BUN/Creatinine Ratio 13.9, Glucose 92, Calcium 8.2 L Current Medications Acetaminophen (Tylenol) 650 mg PO Q6H PRN PRN PRN Reason: Pain Score 1-10/Temp > 100.7 F Amiodarone [facility]) [facility] Admin: 05/07/20 08:28 Dose: 200 mg Documented by: Atorvastatin Calcium (Lipitor) 40 mg PO DAILY@2200 [facility] Calamine/Phenol (Calmoseptine Ointment) 1 applic TOPICAL BID [facility]; Protocol Last Admin: 05/07/20 08:29 Dose: 1 applicatio Documented by: Digoxin (Lanoxin) 125 mcg PO DAILY [facility] Last Admin: 05/07/20 08:28 Dose: 125 mcg Documented by: Fludrocortisone Acetate (Florinef) 0.3 mg PO DAILY@0800 [facility] Last Admin: 05/07/20 08:28 Dose: 0.3 mg Documented by: Sodium Chloride () 250 mls @ 15 mls/hr IV .[id number] PRN PRN Reason: Saline Flush Sodium Chloride () 250 mls @ 15 mls/hr IV .[id number] PRN PRN Reason: Additional IVPB Infusion Latanoprost (Xalatan Opthalmic) 1 drop EACH EYE QHS [facility] Levetiracetam (Keppra Tablet) 250 mg PO BID [facility] Last Admin: 05/07/20 08:28 Dose: 250 mg Documented by: Levothyroxine Sodium (Synthroid) 75 mcg PO DAILY@0600 [facility] Last Admin: 05/07/20 05:27 Dose: 75 mcg Documented by: Midodrine (Proamatine) 10 mg PO TID@0600,1200,1800 [facility] Last Admin: 05/07/20 12:36 Dose: 10 mg Documented by: Mirtazapine (Remeron) 7.5 mg PO QHS [facility] Multi-Ingredient Cream (Eucerin) 1 applic TOPICAL BID PRN PRN; Protocol PRN Reason: skin Nutritional Formula (Lactose Free) (Ensure Enlive) 120 ml PO 4X/DAY [facility] Last Admin: 05/07/20 08:28 Dose: Not Given Documented by: Ondansetron HCl (Zofran) 4 mg IV Q8H PRN PRN PRN Reason: NAUSEA/VOMITING Polyethylene Glycol (Miralax) 17 gm PO DAILY [facility] Last Admin: 05/07/20 08:29 Dose: Not Given Documented by: Sodium Chloride () 10 - 40 ml IV UD PRN PRN Reason: SALINE FLUSH Tamsulosin HCl (Flomax) 0.4 mg PO 1730 [facility] Addendum: Dr. Sotelo I personally examined the patient and reviewed the chart. I agree with the above. 84-year-old male presents from TCU secondary to hematuria. Apparently developed hematuria and had a Hernandez placed and was found to have urinary retention. They tried irrigating the Hernandez and replacing the Hernandez and that was not successful, and therefore since nursing is unable to do continuous bladder irrigation on the TCU, she was transferred to the ER for admission. He underwent continuous bladder irrigation and the hematuria resolved. Urology was contacted in the ER by the ED physician and they did not feel like they would have to do any type of procedures while here as an inpatient. He is no longer anemic and was feeling well. He can return back to TCU with a Hernandez in place and follow-up with urology as an outpatient. Given his hematuria, would hold his Eliquis for 5 days. I discussed with him the [facility] and he expressed understanding. OBSV E&M: [id number] Observation care discharge
--- NOTE | 2020-05-07 13:14 | CASEMGMT ---
[facility] faxed med list to TCU. No further needs, pt to TCU today. MAYRA Sharp
--- NOTE | 2020-05-07 13:27 | NURSING ---
This nurse called patients daughter NHUNG Manuel and informed her that pt is going back to TCU.
== END 2020-05-07 14:45 | disposition skilled nursing facility (03) ==
LOC: ED 17:57 → MS3 22:27
PROVIDERS: Physician Assistant; Admitting Provider Hospitalist; Emergency Provider Emergency Medicine; PCP Family Medicine Geriatric Medicine; Visit Provider Family Medicine
DX: R31.0 Gross hematuria (principal); R33.8 Other retention of urine; N40.1 Benign prostatic hyperplasia with lower urinary tract symptoms; T83.091A Other mechanical complication of indwelling urethral catheter, initial encounter; Y73.8 Miscellaneous gastroenterology and urology devices associated with adverse incidents, not elsewhere classified; Z23 Encounter for immunization; G20 Parkinson's disease; F02.80 Dementia in other diseases classified elsewhere, unspecified severity, without behavioral disturbance, psychotic disturbance, mood disturbance, and anxiety; I10 Essential (primary) hypertension; E78.5 Hyperlipidemia, unspecified; I25.10 Atherosclerotic heart disease of native coronary artery without angina pectoris; Z95.5 Presence of coronary angioplasty implant and graft; E03.9 Hypothyroidism, unspecified; G40.909 Epilepsy, unspecified, not intractable, without status epilepticus; H40.9 Unspecified glaucoma; I42.0 Dilated cardiomyopathy; I48.11 Longstanding persistent atrial fibrillation; Z95.0 Presence of cardiac pacemaker; M19.90 Unspecified osteoarthritis, unspecified site; F32.9 Major depressive disorder, single episode, unspecified; E87.5 Hyperkalemia; N17.9 Acute kidney failure, unspecified; Z79.01 Long term (current) use of anticoagulants; Z79.899 Other long term (current) drug therapy
CPT/HCPCS: 36415; 51702; 80048; 81001; 85025; 85610; 85730; 99218; 99285; A4216; G0378